=== PATIENT | female | born 1945 | race Caucasian/White ===

== ENCOUNTER → 2019-04-18 | Outpatient (CLI) | payer MEDICARE ==
--- NOTE | 2019-04-18 18:02 | MR ---
EXAMINATION TYPE: MR lumbar spine wo con DATE OF EXAM: 04/18/2019 COMPARISON: None HISTORY: 73-year-old female with low back pain TECHNIQUE: Multiplanar, multisequence images of the lumbar spine were acquired. FINDINGS: Vertebral body heights are preserved. Mild multilevel degenerative disc disease with variable disc de siccation and diffuse bulging disc. Moderate degenerative disc disease at L5-S1 with some associated Modic type II fatty endplate change, disc height loss, and vacuum phenomenon. Hypertrophic facet arthropathy is present throughout with areas of ligamentum flavum thickening. Conus medullaris is normal. Overall alignment is maintained. No suspicious bone marrow replacement. No prevertebral or paravertebral soft tissue abnormality. At T12-L1, minimal diffuse bulging disc without canal or foraminal stenosis. At L1-L2, mild diffuse disc bulge with facet arthropathy and prominent dorsal epidural fat. There is mild overall attenuation of the thecal sac without neural foraminal stenosis. At L2-L3, there is diffuse disc bulge with ligamentum flavum thickening and hypertrophic facet arthro jessica. Changes result in severe spinal canal stenosis and minimal bilateral inferior neural foraminal narrowing. At L3-L4, there is diffuse disc bulge with ligamentum flavum thickening and hypertrophic facet arthro jessica resulting in severe spinal canal stenosis and mild bilateral neuroforaminal stenosis. At L4-L5, diffuse disc bulge with ligamentum flavum thickening and hypertrophic facet arthropathy con tributing to severe spinal canal stenosis and moderate right with mild left neuroforaminal stenosis. At L5-S1, diffuse disc bulge mildly attenuates the thecal sac. There is facet arthropathy with modera te right neuroforaminal stenosis. Disc material also may impinge the bilateral traversing S1 nerve ro ots. IMPRESSION: 1. Mild to moderate multilevel degenerative disc disease, greatest at L5-S1 but with prominent multil evel bulging disks. 2. Additional ligamentum flavum thickening and hypertrophic facet arthropathy. 3. Changes result in focal severe spinal canal stenoses at L2-L3, L3-L4, and L4-L5. 4. Mild overall thecal sac attenuation at L1-L2. Disc material at L5-S1 may impinge the bilateral tra versing S1 nerve roots. 5. Moderate right neuroforaminal stenosis at L4-L5.
== END ==
LOC: RADMRIMAIN 13:28
PROVIDERS: ATTEND Psychiatry & Neurology Neurology
DX: M48.061 Spinal stenosis, lumbar region without neurogenic claudication (principal); M51.37 Other intervertebral disc degeneration, lumbosacral region; M51.27 Other intervertebral disc displacement, lumbosacral region; M46.97 Unspecified inflammatory spondylopathy, lumbosacral region
CPT/HCPCS: 72148

== ENCOUNTER 2019-05-14 08:57 | Inpatient (IN) | payer MEDICARE ==
[2019-05-14] MEDS ORDERED: methylPREDNISolone SOD SUCCI 125 MG/2 ML VIAL IV STA (09:22)
[2019-05-14] MEDS ORDERED: IPRATROPIUM-ALBUTEROL 3 ML NEB INHALATION STA (09:22)
[2019-05-14 09:55] LABS: Basophils % (A) 1 %; Eosinophils # (A) 0.3 k/uL (0-0.7); Eosinophils % (A) 6 %; HCT 35.3 % (34.0-46.0); HGB 11.4 gm/dL (11.4-16.0); Lymphocytes # (A) 1.4 k/uL (1.0-4.8); Lymphocytes % (A) 29 %; MCHC 32.3 g/dL (31.0-37.0); MCV 86.7 fL (80.0-100.0); Mean Platelet Volume 9.4; Monocytes # (A) 0.3 k/uL (0-1.0); Monocytes % (A) 7 %; Neutrophils # (A) 2.8 k/uL (1.3-7.7); Neutrophils % (A) 56 %; Platelet Count 185 k/uL (150-450); RBC 4.07 m/uL (3.80-5.40); RDW 13.9 % (11.5-15.5); WBC 4.9 k/uL (3.8-10.6)
--- NOTE | 2019-05-14 10:02 | ED ---
SOB HPI - General Chief Complaint: Shortness of Breath Stated Complaint: TRES Time Seen by Provider: 05/14/19 09:14 Source: patient, RN notes reviewed Mode of arrival: ambulatory Limitations: no limitations - History of Present Illness Initial Comments: 73-year-old female presents emergency Department with chief complaint of shortness of breath. Patient states it started 2 days ago with a runny nose and congestion. Patient states has slightly worsened. She did give herself her breathing treatments morning which helped. She has a history of asthma. Denies chest pain she states she does have some tightness with shortness of breath. No fevers no chills. Denies any nausea vomiting diarrhea constipation. Patient states that she just feels that she has a cold. Patient has no complaints of dizziness no diaphoretic episodes - Related Data Home Medications Medication Instructions Recorded Confirmed Cholecalciferol [Vitamin D3 (25 1,000 unit PO DAILY 05/14/19 05/14/19 Mcg = 1000 Iu)] Clopidogrel [Plavix] 75 mg PO DAILY 05/14/19 05/14/19 Ezetimibe [Zetia] 10 mg PO HS 05/14/19 05/14/19 Gabapentin [Neurontin] 300 mg PO TID@0700,1500,2300 05/14/19 05/14/19 Lisinopril 40 mg PO DAILY 05/14/19 05/14/19 Magnesium Oxide [Magox 400] 400 mg PO DAILY 05/14/19 05/14/19 Metoprolol Succinate (ER) [Toprol 25 mg PO DAILY 05/14/19 05/14/19 Xl] Ubidecarenone [Co Q-10] 100 mg PO MOWEFR 05/14/19 05/14/19 glipiZIDE [Glucotrol] 5 mg PO AC-BRKFST 05/14/19 05/14/19 metFORMIN HCL 500 mg PO DAILY 05/14/19 05/14/19 Allergies Allergy/AdvReac Type Severity Reaction Status Date / Time atorvastatin [From Lipitor] AdvReac CRAMPS Verified 05/14/19 09:32 Review of Systems ROS Statement: Those systems with pertinent positive or pertinent negative responses have been documented in the HPI. ROS Other: All systems not noted in ROS Statement are negative. Past Medical History Past Medical History: Asthma, CVA/TIA, Diabetes Mellitus, Hyperlipidemia, Hypertension Additional Past Medical History / Comment(s): rheumatoid arthritis History of Any Multi-Drug Resistant Organisms: None Reported Past Surgical History: Appendectomy, Tubal Ligation Past Psychological History: No Psychological Hx Reported Smoking Status: Never smoker Past Alcohol Use History: None Reported Past Drug Use History: None Reported General Exam Limitations: no limitations General appearance: alert, in no apparent distress Head exam: Present: atraumatic, normocephalic, normal inspection Eye exam: Present: normal appearance, PERRL, EOMI. Absent: scleral icterus, conjunctival injection, periorbital swelling ENT exam: Present: normal exam, mucous membranes moist Neck exam: Present: normal inspection. Absent: tenderness, meningismus, lymp hadenopathy Respiratory exam: Present: wheezes. Absent: normal lung sounds bilaterally, respiratory distress, rales, rhonchi, stridor Cardiovascular Exam: Present: regular rate, normal rhythm, normal heart sounds. Absent: systolic murmur, diastolic murmur, rubs, gallop, clicks GI/Abdominal exam: Present: soft, normal bowel sounds. Absent: distended, tenderness, guarding, rebound, rigid Skin exam: Present: warm, dry, intact, normal color. Absent: rash Course Vital Signs 05/14/19 05/14/19 05/14/19 09:05 09:28 09:42 Temperature 98.8 F Pulse Rate 79 78 76 Respiratory 26 H Rate Blood Pressure 124/89 O2 Sat by Pulse 96 Oximetry Medical Decision Making - Medical Decision Making 33-year-old female presents emergency from for shortness of breath. Patient lab work, EKG, chest x-ray. Chest x-ray shows possibility of bibasilar atelectasis versus infiltrate and possible interstitial pneumonitis. Patient did have some improvement after DuoNeb treatment though she still has some residual wheezing and shortness of breath. Patient did not for comfortable being discharged at this time will be admitted for pneumonia, asthma - Lab Data Result diagrams: 05/14/19 09:40 05/14/19 09:40 Lab Results 05/14/19 05/14/19 05/14/19 Range/Units 09:40 09:40 09:40 WBC 4.9 (3.8-10.6) k/uL RBC 4.07 (3.80-5.40) m/uL Hgb 11.4 (11.4-16.0) gm/dL Hct 35.3 (34.0-46.0) % MCV 86.7 (80.0-100.0) fL MCH 28.0 (25.0-35.0) pg MCHC 32.3 (31.0-37.0) g/dL RDW 13.9 (11.5-15.5) % Plt Count 185 (150-450) k/uL Neutrophils % 56 % Lymphocytes % 29 % Monocytes % 7 % Eosinophils % 6 % Basophils % 1 % Neutrophils # 2.8 (1.3-7.7) k/uL Lymphocytes # 1.4 (1.0-4.8) k/uL Monocytes # 0.3 (0-1.0) k/uL Eosinophils # 0.3 (0-0.7) k/uL Basophils # 0.0 (0-0.2) k/uL PT (9.0-12.0) sec INR (<1.2) APTT (22.0-30.0) sec Sodium 140 (137-145) mmol/L Potassium 3.4 L (3.5-5.1) mmol/L Chloride 101 (98-107) mmol/L Carbon Dioxide 31 H (22-30) mmol/L Anion Gap 8 mmol/L BUN 14 (7-17) mg/dL Creatinine 0.70 (0.52-1.04) mg/dL Est GFR (CKD-EPI)AfAm >90 (>60 ml/min/1.73 sqM) Est GFR (CKD-EPI)NonAf 85 (>60 ml/min/1.73 sqM) Glucose 192 H (74-99) mg/dL Calcium 8.6 (8.4-10.2) mg/dL Magnesium 1.3 L (1.6-2.3) mg/dL Total Bilirubin 0.7 (0.2-1.3) mg/dL AST 21 (14-36) U/L ALT 21 (9-52) U/L Alkaline Phosphatase 84 (38-126) U/L Troponin I (0.000-0.034) ng/mL NT-Pro-B Natriuret Pep 492 pg/mL Total Protein 7.0 (6.3-8.2) g/dL Albumin 3.6 (3.5-5.0) g/dL 05/14/19 05/14/19 Range/Units 09:40 09:40 WBC (3.8-10.6) k/uL RBC (3.80-5.40) m/uL Hgb (11.4-16.0) gm/dL Hct (34.0-46.0) % MCV (80.0-100.0) fL MCH (25.0-35.0) pg MCHC (31.0-37.0) g/dL RDW (11.5-15.5) % Plt Count (150-450) k/uL Neutrophils % % Lymphocytes % % Monocytes % % Eosinophils % % Basophils % % Neutrophils # (1.3-7.7) k/uL Lymphocytes # (1.0-4.8) k/uL Monocytes # (0-1.0) k/uL Eosinophils # (0-0.7) k/uL Basophils # (0-0.2) k/uL PT 9.8 (9.0-12.0) sec INR 0.9 (<1.2) APTT 21.7 L (22.0-30.0) sec Sodium (137-145) mmol/L Potassium (3.5-5.1) mmol/L Chloride (98-107) mmol/L Carbon Dioxide (22-30) mmol/L Anion Gap mmol/L BUN (7-17) mg/dL Creatinine (0.52-1.04) mg/dL Est GFR (CKD-EPI)AfAm (>60 ml/min/1.73 sqM) Est GFR (CKD-EPI)NonAf (>60 ml/min/1.73 sqM) Glucose (74-99) mg/dL Calcium (8.4-10.2) mg/dL Magnesium (1.6-2.3) mg/dL Total Bilirubin (0.2-1.3) mg/dL AST (14-36) U/L ALT (9-52) U/L Alkaline Phosphatase (38-126) U/L Troponin I <0.012 (0.000-0.034) ng/mL NT-Pro-B Natriuret Pep pg/mL Total Protein (6.3-8.2) g/dL Albumin (3.5-5.0) g/dL Disposition Clinical Impression: Pneumonia, Asthma Disposition: ADMITTED IP TO THIS HOSP Condition: Fair Referrals: Nenita Shelby MD [Primary Care Provider] - 1-2 days
[2019-05-14 10:07] LABS: ALT 21 U/L (9-52); AST 21 U/L (14-36); African American GFR (CKD) >90 (>60 ml/min/1.73 sqM); Albumin 3.6 g/dL (3.5-5.0); Alkaline Phosphatase 84 U/L (38-126); Anion Gap 8 mmol/L; Blood Urea Nitrogen 14 mg/dL (7-17); Calcium 8.6 mg/dL (8.4-10.2); Carbon Dioxide 31 mmol/L (22-30); Chloride 101 mmol/L (98-107); Glucose 192 mg/dL (74-99); Magnesium 1.3 mg/dL (1.6-2.3); Potassium 3.4 mmol/L (3.5-5.1); Sodium 140 mmol/L (137-145); Total Bilirubin 0.7 mg/dL (0.2-1.3)
--- NOTE | 2019-05-14 10:09 | XR ---
EXAMINATION TYPE: XR chest 2V DATE OF EXAM: 05/14/2019 COMPARISON: NONE TECHNIQUE: PA and lateral views submitted. HISTORY: Shortness of breath FINDINGS: There are small bilateral effusions and patchy perihilar interstitial changes. No pneumothorax. Ather osclerotic change aorta. Heart size normal. IMPRESSION: Basilar atelectasis or infiltrate with tiny effusions. Patchy perihilar changes can be se en with interstitial pneumonitis or venous congestion correlate clinically.
[2019-05-14 10:16] LABS: INR 0.9 (<1.2); Prothrombin Time 9.8 sec (9.0-12.0)
[2019-05-14 10:26] LABS: Partial Thromboplastin Time 21.7 sec (22.0-30.0)
[2019-05-14] MEDS ORDERED: AZITHROMYCIN 500 MG in SODIUM CHLORIDE 0.9% 250 ML IVPB STA (10:35)
[2019-05-14] MEDS ORDERED: ALBUTEROL NEBULIZED 2.5 MG/3 ML INHALATION PRN (10:35)
[2019-05-14] MEDS ORDERED: PNEUMONIA PROTOCOL UTILIZED 1 EACH MISC PO PRN (10:35)
[2019-05-14] MEDS ORDERED: IPRATROPIUM-ALBUTEROL 3 ML NEB INHALATION SCH (12:00)
[2019-05-14 12:40] LABS: Glucose,Whole Blood 197 mg/dL (75-99)
[2019-05-14] MEDS: IPRATROPIUM-ALBUTEROL 3 ML NEB INHALATION SCH ×2 (15:26→19:52)
[2019-05-14] MEDS ORDERED: Potassium Replacement Protocol 1 EACH MISC MISCELLANE PRN (15:39)
[2019-05-14] MEDS ORDERED: Magnesium Replacement Protocol 1 EACH MISC MISCELLANE PRN (15:40)
[2019-05-14] MEDS: LISINOPRIL 20 MG TAB PO SCH (16:47)
[2019-05-14] MEDS: CLOPIDOGREL 75 MG TAB PO SCH (16:47)
[2019-05-14] MEDS: POTASSIUM CHLORIDE ER 20 MEQ TAB.ER PO SCH ×2 (16:47→16:48)
[2019-05-14] MEDS: MAGNESIUM OXIDE 400 MG TAB PO SCH (16:48)
[2019-05-14] MEDS: metFORMIN 500 MG TAB PO SCH (16:48)
[2019-05-14] MEDS: METOPROLOL SUCCINATE (ER) 25 MG TAB.ER.24H PO SCH (16:53)
--- NOTE | 2019-05-14 16:54 | P.HPIM ---
History of Present Illness H&P Date: 05/14/19 Nancy Celestin is a 73-year-old female who presented to [facility] emergency Department with chief complaint of shortness of breath. Patient states it started 2 days ago with a runny nose and congestion. Patient started having shortness of breath which worsened over the last 2 days she had occasional cough patient has a known history of asthma, she tried to take nebulizer treatment at home with minimal improvement she decided to come to emergency room, she was evaluated in emergency room that and had evidence of pneumonia she was started on IV antibiotic and was admitted to medical floor pulmonary consultation was requested. Past Medical History Past Medical History: Asthma, CVA/TIA, Diabetes Mellitus, Hyperlipidemia, Hypertension Additional Past Medical History / Comment(s): rheumatoid arthritis History of Any Multi-Drug Resistant Organisms: None Reported Past Surgical History: Appendectomy, Tubal Ligation Past Anesthesia/Blood Transfusion Reactions: No Reported Reaction Past Psychological History: No Psychological Hx Reported Smoking Status: Never smoker Past Alcohol Use History: None Reported Past Drug Use History: None Reported - Past Family History Father Family Medical History: Cancer, Congestive Heart Failure (CHF) Additional Family Medical History / Comment(s): colon cancer Mother Family Medical History: Rheumatoid Arthritis (RA) Medications and Allergies Home Medications Medication Instructions Recorded Confirmed Type Cholecalciferol [Vitamin D3 (25 1,000 unit PO DAILY 05/14/19 05/14/19 History Mcg = 1000 Iu)] Clopidogrel [Plavix] 75 mg PO DAILY 05/14/19 05/14/19 History Ezetimibe [Zetia] 10 mg PO HS 05/14/19 05/14/19 History Gabapentin [Neurontin] 300 mg PO TID@0700,1500,2300 05/14/19 05/14/19 History Lisinopril 40 mg PO DAILY 05/14/19 05/14/19 History Magnesium Oxide [Magox 400] 400 mg PO DAILY 05/14/19 05/14/19 History Metoprolol Succinate (ER) [Toprol 25 mg PO DAILY 05/14/19 05/14/19 History Xl] Ubidecarenone [Co Q-10] 100 mg PO MOWEFR 05/14/19 05/14/19 History glipiZIDE [Glucotrol] 5 mg PO AC-BRKFST 05/14/19 05/14/19 History metFORMIN HCL 500 mg PO DAILY 05/14/19 05/14/19 History Allergies Allergy/AdvReac Type Severity Reaction Status Date / Time atorvastatin [From Lipitor] AdvReac CRAMPS Verified 05/14/19 09:32 Physical Exam Vitals: Vital Signs Temp Pulse Pulse Resp BP BP Pulse Ox 05/14/19 15:37 82 16 05/14/19 15:26 80 16 99 05/14/19 12:48 75 16 05/14/19 12:41 98.0 F 75 16 161/78 99 05/14/19 11:32 98.7 F 75 16 179/72 98 05/14/19 10:35 99 05/14/19 09:42 76 05/14/19 09:28 78 05/14/19 09:05 98.8 F 79 26 H 124/89 96 Intake and Output 05/14/19 05/14/19 05/14/19 06:59 14:59 22:59 Intake Total 590 Balance 590 Intake: Intake, IV Titration 350 Amount Azithromycin 500 mg In 250 Sodium Chloride 0.9% 250 ml @ 250 mls/hr IVPB ONCE STA Rx#:[id number] cefTRIAXone 1 gm In 100 Sodium Chloride 0.9% 50 ml @ 100 mls/hr IVPB Q24HR JACINTO Rx#:[id number] Oral 240 Other: # Voids 1 Weight 129.727 kg In general patient is alert and oriented 3 in no apparent distress HEENT head normocephalic and atraumatic Neck is supple no JVD no goiter no lymphadenopathy Chest exam reveals a few scattered crackles no wheezing Cardiac exam reveals regular heart sounds no gallops no murmurs Abdomen is soft nontender no organomegaly was normal bowel sounds Extremity exam reveals 1+ edema with some puffiness in the feet no cyanosis or clubbing Results CBC & Chem 7: 05/14/19 09:40 05/14/19 09:40 Labs: Abnormal Lab Results - Last 24 Hours (Table) 05/14/19 05/14/19 05/14/19 Range/Units 09:40 09:40 12:38 APTT 21.7 L (22.0-30.0) sec Potassium 3.4 L (3.5-5.1) mmol/L Carbon Dioxide 31 H (22-30) mmol/L Glucose 192 H (74-99) mg/dL POC Glucose (mg/dL) 197 H (75-99) mg/dL Magnesium 1.3 L (1.6-2.3) mg/dL Thrombosis Risk Factor Assmnt - Choose All That Apply Each Factor Represents 1 point: Swollen legs (current) Each Risk Factor Represents 3 Points: Age 75 years or older Thrombosis Risk Factor Assessment Total Risk Factor Score: 4 Thrombosis Risk Factor Assessment Level: Moderate Risk Assessment and Plan Plan: #1 pneumonia chest x-rays showing perihilar infiltrate and bilateral basilar in filtrate she was started on IV Rocephin and IV Zithromax in the emergency room will continue Will obtain sputum culture Will consult pulmonary #2 asthma exacerbation patient was started on DuoNeb updraft treatment will monitor closely #3 underlying history of hypertension #4 underlying history of diabetes mellitus #5 underlying history of hyperlipidemia At this time will continue with current management with IV antibiotic and inhaled bronchodilators Pulmonary consultation requested will follow course closely
[2019-05-14 17:12] LABS: Glucose,Whole Blood 353 mg/dL (75-99)
[2019-05-14] MEDS: MAGNESIUM SULFATE-D5W PMX 1 GM in DEXTROSE/WATER 1 100ML.BAG IVPB SCH ×3 (17:45→21:58)
[2019-05-14] MEDS: INSULIN ASPART (NovoLOG) 100 UNIT/ML VIAL SQ SCH ×2 (17:46→21:49)
[2019-05-14 20:07] LABS: Glucose,Whole Blood 374 mg/dL (75-99)
[2019-05-14] MEDS: EZETIMIBE 10 MG TAB PO SCH (21:50)
[2019-05-14] MEDS: GABAPENTIN 300 MG CAP PO SCH (21:52)
[2019-05-15] MEDS: IPRATROPIUM-ALBUTEROL 3 ML NEB INHALATION SCH ×4 (07:01→18:39)
[2019-05-15 07:32] LABS: Glucose,Whole Blood 299 mg/dL (75-99)
--- NOTE | 2019-05-15 07:35 | XR ---
EXAMINATION TYPE: XR chest 2V DATE OF EXAM: 05/15/2019 COMPARISON: 05/14/2019 TECHNIQUE: PA and lateral views submitted. HISTORY: Shortness of breath FINDINGS: There are small bilateral effusions and patchy perihilar interstitial changes. No pneumothorax. Ather osclerotic change aorta. Heart size normal. Pulmonary arteries appear prominent correlate for pulmona ry arterial hypertension. IMPRESSION: 1. Stable Basilar atelectasis or infiltrate with tiny effusions. Patchy perihilar changes can be seen with interstitial pneumonitis or venous congestion correlate clinically. 2. Prominent pulmonary arteries correlate for pulmonary arterial hypertension.
[2019-05-15 08:33] LABS: ALT 8 U/L (9-52); AST 42 U/L (14-36); African American GFR (CKD) >90 (>60 ml/min/1.73 sqM); Albumin 3.8 g/dL (3.5-5.0); Alkaline Phosphatase 91 U/L (38-126); Anion Gap 10 mmol/L; Blood Urea Nitrogen 15 mg/dL (7-17); Calcium 8.9 mg/dL (8.4-10.2); Carbon Dioxide 28 mmol/L (22-30); Chloride 102 mmol/L (98-107); Glucose 282 mg/dL (74-99); Potassium 4.1 mmol/L (3.5-5.1); Sodium 140 mmol/L (137-145); Total Bilirubin 0.7 mg/dL (0.2-1.3); Total Protein 7.4 g/dL (6.3-8.2)
[2019-05-15 08:45] LABS: Basophils % (A) 0 %; Eosinophils % (A) 1 %; HCT 36.4 % (34.0-46.0); HGB 11.9 gm/dL (11.4-16.0); Lymphocytes # (A) 1.1 k/uL (1.0-4.8); Lymphocytes % (A) 22 %; MCH 28.7 pg (25.0-35.0); MCHC 32.9 g/dL (31.0-37.0); MCV 87.3 fL (80.0-100.0); Mean Platelet Volume 9.2; Monocytes # (A) 0.4 k/uL (0-1.0); Monocytes % (A) 8 %; Neutrophils # (A) 3.4 k/uL (1.3-7.7); Neutrophils % (A) 68 %; Platelet Count 192 k/uL (150-450); RBC 4.16 m/uL (3.80-5.40); RDW 13.4 % (11.5-15.5); WBC 5.1 k/uL (3.8-10.6)
[2019-05-15] MEDS ORDERED: methylPREDNISolone SOD SUCCI 40 MG/ML 1 ML VIAL IV SCH (09:30)
[2019-05-15] MEDS: CLOPIDOGREL 75 MG TAB PO SCH (09:38)
[2019-05-15] MEDS: LISINOPRIL 20 MG TAB PO SCH ×2 (09:38→09:39)
[2019-05-15] MEDS: GABAPENTIN 300 MG CAP PO SCH ×2 (09:38→18:07)
[2019-05-15] MEDS: MAGNESIUM OXIDE 400 MG TAB PO SCH (09:38)
[2019-05-15] MEDS: CHOLECALCIFEROL 1,000 UNIT TAB PO SCH (09:38)
[2019-05-15] MEDS: metFORMIN 500 MG TAB PO SCH (09:39)
[2019-05-15] MEDS: glipiZIDE 5 MG TAB PO SCH (09:39)
[2019-05-15] MEDS: METOPROLOL SUCCINATE (ER) 25 MG TAB.ER.24H PO SCH (09:40)
[2019-05-15] MEDS: INSULIN ASPART (NovoLOG) 100 UNIT/ML VIAL SQ SCH ×4 (09:40→20:25)
[2019-05-15] MEDS: AZITHROMYCIN 500 MG in SODIUM CHLORIDE 0.9% 250 ML IVPB SCH (12:23)
[2019-05-15 12:33] LABS: Glucose,Whole Blood 244 mg/dL (75-99)
--- NOTE | 2019-05-15 12:35 | P.CNPUL ---
History of Present Illness Consult date: 05/15/19 Requesting physician: Nenita Shelby Reason for consult: dyspnea Chief complaint: Dyspnea, chest tightness, acute asthma attack History of present illness: This is 73-year-old white female patient of Dr. Shelby, with past medical history of moderately persistent bronchial asthma, who was recently treated for a sinus infection with a course of antibiotics, and patient finished it on May 05. She stated her symptoms did improve after that, however on she was out with her friend, and she started getting watery eyes, increased nasal drainage which was clear, increased sinus congestion. She returned home her chest was feeling tight, she was having difficulty breathing. She took her nebulized bronchodilator, and her symptoms became worse, and she came into the hospital on 05/14/2019 to the emergency department. Patient states her symptoms usually are well-controlled other than during the weather change, with high humidity and hot weather. Patient also has ALLERGIES to pollen, dust and ragweed. Chest x-ray was obtained showing basilar atelectasis or infiltrates with tiny effusions, patchy perihilar changes with interstitial pneumonitis or venous congestion. She denied fever or chills, no nausea vomiting or diarrhea. Labs did not show any leukocytosis, white blood cell count is 4.9, hemoglobin is 11.4, INR 0.9, serum sodium is 140, potassium is 3.4, chloride was 101, CO2 is 31, BUN is 14, creatinine 0.70, troponin was negative 1, proBNP was 492, influenza screen was negative. Patient was started on nebulized bronchodilators, she was given a dose of IV Solu-Medrol 125 mg in the emergency department, empiric antibiotics in the form of Zithromax and Rocephin, and was admitted for further management. Other medical history includes diabetes mellitus, hypertension, hyperlipidemia, CVA/TIA, rheumatoid arthritis, and patient is under the care of Dr. Potter, on [facility] for maintenance. Review of Systems All systems: negative Constitutional: Denies chills, Denies fever Eyes: denies blurred vision, denies pain Ears, nose, mouth and throat: Reports nasal congestion, Reports post-nasal drip, Reports sinus pain, Reports sinus pressure, Reports sore throat, Denies headache Cardiovascular: Denies chest pain, Denies shortness of breath Respiratory: Reports cough with sputum, Reports dyspnea, Reports respiratory infections, Reports wheezing, Denies cough Gastrointestinal: Denies abdominal pain, Denies diarrhea, Denies nausea, Denies vomiting Genitourinary: Denies dysuria, Denies hematuria Musculoskeletal: Denies myalgias Integumentary: Denies pruritus, Denies rash Neurological: Denies numbness, Denies weakness Psychiatric: Denies anxiety, Denies depression Endocrine: Denies fatigue, Denies weight change Past Medical History Past Medical History: Asthma, CVA/TIA, Diabetes Mellitus, Hyperlipidemia, Hypertension Additional Past Medical History / Comment(s): rheumatoid arthritis History of Any Multi-Drug Resistant Organisms: None Reported Past Surgical History: Appendectomy, Tubal Ligation Past Anesthesia/Blood Transfusion Reactions: No Reported Reaction Past Psychological History: No Psychological Hx Reported Smoking Status: Never smoker Past Alcohol Use History: None Reported Past Drug Use History: None Reported - Past Family History Father Family Medical History: Cancer, Congestive Heart Failure (CHF) Additional Family Medical History / Comment(s): colon cancer Mother Family Medical History: Rheumatoid Arthritis (RA) Medications and Allergies Home Medications Medication Instructions Recorded Confirmed Type Cholecalciferol [Vitamin D3 (25 1,000 unit PO DAILY 05/14/19 05/14/19 History Mcg = 1000 Iu)] Clopidogrel [Plavix] 75 mg PO DAILY 05/14/19 05/14/19 History Ezetimibe [Zetia] 10 mg PO HS 05/14/19 05/14/19 History Gabapentin [Neurontin] 300 mg PO TID@0700,1500,2300 05/14/19 05/14/19 History Lisinopril 40 mg PO DAILY 05/14/19 05/14/19 History Magnesium Oxide [Magox 400] 400 mg PO DAILY 05/14/19 05/14/19 History Metoprolol Succinate (ER) [Toprol 25 mg PO DAILY 05/14/19 05/14/19 History Xl] Ubidecarenone [Co Q-10] 100 mg PO MOWEFR 05/14/19 05/14/19 History glipiZIDE [Glucotrol] 5 mg PO AC-BRKFST 05/14/19 05/14/19 History metFORMIN HCL 500 mg PO DAILY 05/14/19 05/14/19 History Allergies Allergy/AdvReac Type Severity Reaction Status Date / Time atorvastatin [From Lipitor] AdvReac CRAMPS Verified 05/14/19 09:32 Physical Exam Vitals: Vital Signs Temp Pulse Pulse Resp BP Pulse Ox 05/15/19 11:15 80 05/15/19 11:04 82 05/15/19 08:25 88 20 05/15/19 07:13 88 05/15/19 07:01 84 05/15/19 05:38 97.5 F L 88 20 142/72 99 05/15/19 04:44 80 05/15/19 04:14 88 05/14/19 20:05 97.7 F 102 H 22 174/77 96 05/14/19 20:04 78 16 05/14/19 19:54 77 16 05/14/19 16:25 75 16 05/14/19 15:37 82 16 05/14/19 15:26 80 16 99 05/14/19 15:00 98.3 F 152/78 05/14/19 12:48 75 16 05/14/19 12:41 98.0 F 75 16 161/78 99 Intake and Output 05/14/19 05/15/19 05/15/19 22:59 06:59 14:59 Other: Voiding Method Toilet Toilet # Voids 1 3 GENERAL EXAM: Alert, pleasant 73-year-old obese -[place] female, comfortable in no apparent distress. HEAD: Normocephalic/atraumatic. EYES: Normal reaction of pupils, equal size. Conjunctiva pink, sclera white. NOSE: Clear with pink turbinates. THROAT: No erythema or exudates. NECK: No masses, no JVD, no thyroid enlargement, no adenopathy. CHEST: No chest wall deformity. Symmetrical expansion. LUNGS: Equal air entry with diminished breath sounds, with end expiratory wheezes CVS: Regular rate and rhythm, normal S1 and S2, no gallops, no murmurs, no rubs ABDOMEN: Soft, nontender. No hepatosplenomegaly, normal bowel sounds, no guarding or rigidity. EXTREMITIES: No clubbing, no edema, no cyanosis, 2+ pulses and upper and lower extremities. MUSCULOSKELETAL: Muscle strength and tone normal. SPINE: No scoliosis or deformity SKIN: No rashes CENTRAL NERVOUS SYSTEM: Alert and oriented -3. No focal deficits, tone is normal in all 4 extremities. PSYCHIATRIC: Alert and oriented -3. Appropriate affect. Intact judgment and insight. Results - Laboratory Findings CBC and BMP: 05/15/19 07:34 05/15/19 07:34 PT/INR, D-dimer PT 9.8 sec (9.0-12.0) 05/14/19 09:40 INR 0.9 (<1.2) 05/14/19 09:40 Abnormal lab findings: Abnormal Labs 05/14/19 05/14/19 05/14/19 09:40 09:40 12:38 APTT 21.7 L Potassium 3.4 L Carbon Dioxide 31 H Glucose 192 H POC Glucose (mg/dL) 197 H Magnesium 1.3 L AST ALT 05/14/19 05/14/19 05/15/19 17:11 20:06 07:31 APTT Potassium Carbon Dioxide Glucose POC Glucose (mg/dL) 353 H 374 H 299 H Magnesium AST ALT 05/15/19 07:34 APTT Potassium Carbon Dioxide Glucose 282 H POC Glucose (mg/dL) Magnesium AST 42 H ALT 8 L - Diagnostic Findings Chest x-ray: report reviewed, image reviewed Assessment and Plan Plan: Assessment: #1. Acute exacerbation of moderate persistent chronic bronchial asthma, chest x-ray showed basilar atelectasis, with tiny pleural effusions, and pulmonary arterial hypertension. Triggers include change in weather, pollen, dust and ragweed #2. Recent sinus infection, and patient was treated with outpatient course of oral antibiotics completed on May 05 #3. Steroid-induced hyperglycemia #4. Diabetes mellitus type 2 #5. Hypertension #6. Hyperlipidemia #7. Morbid obesity Plan: We will restart IV Solu-Medrol at 40 mg every 12 hours, patient has developed steroid-induced hyperglycemia, we will add Pulmicort and Perforomist, continue DuoNeb, continue with Zithromax and Rocephin. Chest x-rays have been reviewed, clear evidence of pulmonary infiltrates, bibasilar atelectasis, and pulmonary hypertension will continue to follow I performed a history & physical examination of the patient and discussed their management with my nurse practitioner, Tisha Barnes. I reviewed the nurse practitioner's note and agree with the documented findings and plan of care. Lung sounds are positive for diffuse wheezes throughout the lung ennis. The findings and the impression was discussed with the patient. I attest to the documentation by the nurse practitioner. Time with Patient: Greater than 30
--- NOTE | 2019-05-15 14:37 | P.PN ---
Subjective Progress Note Date: 05/15/19 Nancy Celestin is a 73-year-old female who presented to [facility] emergency Department with chief complaint of shortness of breath. Patient states it started 2 days ago with a runny nose and congestion. Patient started having shortness of breath which worsened over the last 2 days she had occasional cough patient has a known history of asthma, she tried to take nebulizer treatment at home with minimal improvement she decided to come to emergency room, she was evaluated in emergency room that and had evidence of pneumonia she was started on IV antibiotic and was admitted to medical floor pulmonary consultation was requested. On 05/15/2019 patient was seen and examined on the medical floor she is alert and oriented 3 in no apparent distress there is no fever or chills no headache or dizziness no chest pain no shortness of breath she is still complaining of nasal congestion and cough with yellow-green sputum production there is no nausea or vomiting no abdominal pain no diarrhea and no urinary symptoms Objective - Vital Signs Vital signs: Vital Signs Temp 97.5 F L 05/15/19 05:38 Pulse 80 05/15/19 11:15 Resp 20 05/15/19 08:25 BP 142/72 05/15/19 05:38 Pulse Ox 99 05/15/19 05:38 Intake & Output 05/14/19 05/15/19 05/15/19 18:59 06:59 18:59 Intake Total 590 Balance 590 Weight 129.727 kg Intake: Intake, IV Titration 350 Amount Azithromycin 500 mg In 250 Sodium Chloride 0.9% 250 ml @ 250 mls/hr IVPB [facility]CE [facility] Rx#:[id number] cefTRIAXone 1 gm In 100 Sodium Chloride 0.9% 50 ml @ 100 mls/hr IVPB Q24HR [facility] Rx#:[id number] Oral 240 Other: Voiding Method Toilet Toilet # Voids 1 3 - Exam In general patient is alert and oriented 3 in no apparent distress HEENT head normocephalic and atraumatic Neck is supple no JVD no goiter no lymphadenopathy Chest exam reveals a few scattered crackles no wheezing Cardiac exam reveals regular heart sounds no gallops no murmurs Abdomen is soft nontender no organomegaly was normal bowel sounds Extremity exam reveals 1+ edema with some puffiness in the feet no cyanosis or clubbing - Labs CBC & Chem 7: 05/15/19 07:34 05/15/19 07:34 Labs: Abnormal Lab Results - Last 24 Hours (Table) 05/14/19 05/14/19 05/15/19 Range/Units 17:11 20:06 07:31 Glucose (74-99) mg/dL POC Glucose (mg/dL) 353 H 374 H 299 H (75-99) mg/dL AST (14-36) U/L ALT (9-52) U/L 05/15/19 05/15/19 Range/Units 07:34 12:32 Glucose 282 H (74-99) mg/dL POC Glucose (mg/dL) 244 H (75-99) mg/dL AST 42 H (14-36) U/L ALT 8 L (9-52) U/L Microbiology - Last 24 Hours (Table) 05/15/19 04:18 Gram Stain - Preliminary Sputum Sputum Culture - Preliminary Assessment and Plan Plan: #1 pneumonia chest x-rays showing perihilar infiltrate and bilateral basilar infiltrate she was started on IV Rocephin and IV Zithromax in the emergency room will continue Will obtain sputum culture Will consult pulmonary #2 asthma exacerbation patient was started on DuoNeb updraft treatment will monitor closely #3 underlying history of hypertension #4 underlying history of diabetes mellitus #5 underlying history of hyperlipidemia At this time will continue with current management with IV antibiotic and inhaled bronchodilators Pulmonary consultation requested will follow course closely
[2019-05-15 16:49] LABS: Glucose,Whole Blood 226 mg/dL (75-99)
[2019-05-15] MEDS: FORMOTEROL FUMARATE 20 MCG/2 ML NEBU INHALATION SCH (18:39)
[2019-05-15] MEDS: BUDESONIDE 1 MG/2 ML NEBU INHALATION SCH (18:39)
[2019-05-15] MEDS: traMADol 50 MG TAB PO PRN (19:57)
[2019-05-15 20:02] LABS: Glucose,Whole Blood 227 mg/dL (75-99)
[2019-05-15] MEDS: EZETIMIBE 10 MG TAB PO SCH (20:24)
[2019-05-15] MEDS: methylPREDNISolone SOD SUCCI 40 MG/ML 1 ML VIAL IV SCH (20:25)
[2019-05-15] MEDS: amLODIPine 5 MG TAB PO SCH (21:34)
[2019-05-15] MEDS: hydrALAZINE HCL 20 MG/ML 1 ML VIAL IVP PRN (23:08)
[2019-05-16] MEDS: GABAPENTIN 300 MG CAP PO SCH ×4 (00:03→22:53)
[2019-05-16] MEDS: IPRATROPIUM-ALBUTEROL 3 ML NEB INHALATION PRN (00:47)
[2019-05-16 07:00] LABS: Glucose,Whole Blood 273 mg/dL (75-99)
[2019-05-16] MEDS: BUDESONIDE 1 MG/2 ML NEBU INHALATION SCH ×2 (07:00→19:52)
[2019-05-16] MEDS: IPRATROPIUM-ALBUTEROL 3 ML NEB INHALATION SCH ×4 (07:00→19:53)
[2019-05-16] MEDS: FORMOTEROL FUMARATE 20 MCG/2 ML NEBU INHALATION SCH ×2 (07:00→19:52)
[2019-05-16] MEDS: METOPROLOL SUCCINATE (ER) 25 MG TAB.ER.24H PO SCH (07:38)
[2019-05-16] MEDS: CLOPIDOGREL 75 MG TAB PO SCH (07:38)
[2019-05-16] MEDS: glipiZIDE 5 MG TAB PO SCH (07:38)
[2019-05-16] MEDS: LISINOPRIL 20 MG TAB PO SCH (07:38)
[2019-05-16] MEDS: CHOLECALCIFEROL 1,000 UNIT TAB PO SCH (07:39)
[2019-05-16] MEDS: MAGNESIUM OXIDE 400 MG TAB PO SCH (07:39)
[2019-05-16] MEDS: methylPREDNISolone SOD SUCCI 40 MG/ML 1 ML VIAL IV SCH ×2 (07:39→22:01)
[2019-05-16] MEDS: amLODIPine 5 MG TAB PO SCH (07:39)
[2019-05-16] MEDS: metFORMIN 500 MG TAB PO SCH (07:39)
[2019-05-16] MEDS: INSULIN ASPART (NovoLOG) 100 UNIT/ML VIAL SQ SCH ×4 (07:40→22:01)
[2019-05-16] MEDS: AZITHROMYCIN 500 MG in SODIUM CHLORIDE 0.9% 250 ML IVPB SCH (07:49)
[2019-05-16 09:28] LABS: Basophils % (A) 0 %; Eosinophils % (A) 0 %; HCT 36.1 % (34.0-46.0); HGB 11.3 gm/dL (11.4-16.0); Hypochromasia Moderate; Lymphocytes # (A) 1.6 k/uL (1.0-4.8); Lymphocytes % (A) 22 %; MCH 28.2 pg (25.0-35.0); MCHC 31.4 g/dL (31.0-37.0); MCV 89.7 fL (80.0-100.0); Mean Platelet Volume 9.2; Monocytes # (A) 0.3 k/uL (0-1.0); Monocytes % (A) 3 %; Neutrophils # (A) 5.4 k/uL (1.3-7.7); Neutrophils % (A) 73 %; Platelet Count 212 k/uL (150-450); RBC 4.03 m/uL (3.80-5.40); RDW 13.8 % (11.5-15.5); WBC 7.3 k/uL (3.8-10.6)
[2019-05-16 09:35] LABS: African American GFR (CKD) >90 (>60 ml/min/1.73 sqM); Albumin 3.9 g/dL (3.5-5.0); Anion Gap 12 mmol/L; Blood Urea Nitrogen 18 mg/dL (7-17); Carbon Dioxide 25 mmol/L (22-30); Chloride 102 mmol/L (98-107); Glucose 269 mg/dL (74-99); Sodium 139 mmol/L (137-145); Total Bilirubin 0.5 mg/dL (0.2-1.3); Total Protein 7.6 g/dL (6.3-8.2)
[2019-05-16 09:47] LABS: ALT 19 U/L (9-52); AST 32 U/L (14-36); Alkaline Phosphatase 73 U/L (38-126); Potassium 4.9 mmol/L (3.5-5.1)
[2019-05-16 11:36] LABS: Glucose,Whole Blood 253 mg/dL (75-99)
--- NOTE | 2019-05-16 12:21 | P.PN ---
Subjective Progress Note Date: 05/16/19 Principal diagnosis: Exacerbation of moderate persistent chronic bronchial asthma This is 73-year-old white female patient of Dr. Shelby, with past medical history of moderately persistent bronchial asthma, who was recently treated for a sinus infection with a course of antibiotics, and patient finished it on May 05. She stated her symptoms did improve after that, however on she was out with her friend, and she started getting watery eyes, increased nasal drainage which was clear, increased sinus congestion. She returned home her chest was feeling tight, she was having difficulty breathing. She took her nebulized bronchodilator, and her symptoms became worse, and she came into the hospital on 05/14/2019 to the emergency department. Patient states her symptoms usually are well-controlled other than during the weather change, with high humidity and hot weather. Patient also has ALLERGIES to pollen, dust and ragweed. Chest x-ray was obtained showing basilar atelectasis or infiltrates with tiny effusions, patchy perihilar changes with interstitial pneumonitis or venous congestion. She denied fever or chills, no nausea vomiting or diarrhea. Labs did not show any leukocytosis, white blood cell count is 4.9, hemoglobin is 11.4, INR 0.9, serum sodium is 140, potassium is 3.4, chloride was 101, CO2 is 31, BUN is 14, creatinine 0.70, troponin was negative 1, proBNP was 492, influenza screen was negative. Patient was started on nebulized bronc hodilators, she was given a dose of IV Solu-Medrol 125 mg in the emergency department, empiric antibiotics in the form of Zithromax and Rocephin, and was admitted for further management. Other medical history includes diabetes mellitus, hypertension, hyperlipidemia, CVA/TIA, rheumatoid arthritis, and patient is under the care of Dr. Potter, on [facility] for maintenance. On 05/16/2019 patient seen in follow-up on medical surgical floor. She is moving better air today, sounds more wheezing and bronchospastic, with better air entry at lower bases of the lungs. She states she is breathing easier, although not back to normal, room air pulse ox is 97%, she is afebrile, hemodynamically patient is stable, as a positive for diffuse wheezes bilaterally, patient is on IV steroids at 40 mg every 12 hours, she is on Pulmicort and Perforomist, nebulized bronchodilators, Zithromax and Rocephin, urine culture has been sent, preliminary Gram stain showed few gram-positive cocci and peers in chains few gram-negative bacilli, final cultures pending. Objective - Vital Signs Vital signs: Vital Signs Temp 98.1 F 05/16/19 11:57 Pulse 78 05/16/19 11:57 Resp 18 05/16/19 11:57 BP 176/81 05/16/19 11:57 Pulse Ox 97 05/16/19 11:57 Intake & Output 05/15/19 05/16/19 05/16/19 18:59 06:59 18:59 Intake Total 1000 590 Balance 1000 590 Intake: Oral 1000 590 Other: Voiding Method Toilet Toilet # Voids 2 2 - Exam GENERAL EXAM: Alert, pleasant 73-year-old obese -[place] female, comfortable in no apparent distress. HEAD: Normocephalic/atraumatic. EYES: Normal reaction of pupils, equal size. Conjunctiva pink, sclera white. NOSE: Clear with pink turbinates. THROAT: No erythema or exudates. NECK: No masses, no JVD, no thyroid enlargement, no adenopathy. CHEST: No chest wall deformity. Symmetrical expansion. LUNGS: Equal air entry with diminished breath sounds, with end expiratory wheezes CVS: Regular rate and rhythm, normal S1 and S2, no gallops, no murmurs, no rubs ABDOMEN: Soft, nontender. No hepatosplenomegaly, normal bowel sounds, no guarding or rigidity. EXTREMITIES: No clubbing, no edema, no cyanosis, 2+ pulses and upper and lower extremities. MUSCULOSKELETAL: Muscle strength and tone normal. SPINE: No scoliosis or deformity SKIN: No rashes CENTRAL NERVOUS SYSTEM: Alert and oriented -3. No focal deficits, tone is normal in all 4 extremities. PSYCHIATRIC: Alert and oriented -3. Appropriate affect. Intact judgment and insight. - Labs CBC & Chem 7: 05/16/19 08:02 05/16/19 08:02 Labs: Abnormal Lab Results - Last 24 Hours (Table) 05/15/19 05/15/19 05/15/19 Range/Units 12:32 16:48 20:01 Hgb (11.4-16.0) gm/dL BUN (7-17) mg/dL Glucose (74-99) mg/dL POC Glucose (mg/dL) 244 H 226 H 227 H (75-99) mg/dL 05/16/19 05/16/19 05/16/19 Range/Units 06:58 08:02 08:02 Hgb 11.3 L (11.4-16.0) gm/dL BUN 18 H (7-17) mg/dL Glucose 269 H (74-99) mg/dL POC Glucose (mg/dL) 273 H (75-99) mg/dL 05/16/19 Range/Units 11:35 Hgb (11.4-16.0) gm/dL BUN (7-17) mg/dL Glucose (74-99) mg/dL POC Glucose (mg/dL) 253 H (75-99) mg/dL Microbiology - Last 24 Hours (Table) 05/15/19 04:18 Gram Stain - Preliminary Sputum Sputum Culture - Preliminary Assessment and Plan Plan: Assessment: #1. Acute exacerbation of moderate persistent chronic bronchial asthma, chest x-ray showed basilar atelectasis, with tiny pleural effusions, and pulmonary arterial hypertension. Triggers include change in weather, pollen, dust and ragweed #2. Recent sinus infection, and patient was treated with outpatient course of oral antibiotics completed on May 05 #3. Steroid-induced hyperglycemia #4. Diabetes mellitus type 2 #5. Hypertension #6. Hyperlipidemia #7. Morbid obesity Plan: Continue with current antibiotic coverage, will await results of the final sputum culture, continue with IV steroids, Pulmicort and Perforomist, DuoNeb. Better air entry noted on today's exam, patient is breathing easier, although still very bronchospastic. Will send a procalcitonin level. I performed a history & physical examination of the patient and discussed their management with my nurse practitioner, Tisha Barnes. I reviewed the nurse practitioner's note and agree with the documented findings and plan of care. Lung sounds are positive for diffuse wheezes throughout the lung ennis. The findings and the impression was discussed with the patient. I attest to the documentation by the nurse practitioner. Time with Patient: Less than 30
[2019-05-16] MEDS: hydrALAZINE HCL 20 MG/ML 1 ML VIAL IVP PRN (13:34)
--- NOTE | 2019-05-16 14:10 | P.PN ---
Subjective Progress Note Date: 05/16/19 Nancy Celestin is a 73-year-old female who presented to [facility] emergency Department with chief complaint of shortness of breath. Patient states it started 2 days ago with a runny nose and congestion. Patient started having shortness of breath which worsened over the last 2 days she had occasional cough patient has a known history of asthma, she tried to take nebulizer treatment at home with minimal improvement she decided to come to emergency room, she was evaluated in emergency room that and had evidence of pneumonia she was started on IV antibiotic and was admitted to medical floor pulmonary consultation was requested. On 05/15/2019 patient was seen and examined on the medical floor she is alert and oriented 3 in no apparent distress there is no fever or chills no headache or dizziness no chest pain no shortness of breath she is still complaining of nasal congestion and cough with yellow-green sputum production there is no nausea or vomiting no abdominal pain no diarrhea and no urinary symptoms 05/16/2019 patient reports that her breathing is doing better. She still having some wheezing when walking back from the bathroom. Blood pressures elevated at 176/81 she's receiving IV hydralazine. Patient was started on Norvasc during this admission. Also will add hydrochlorothiazide 25 mg daily. Patient denies any chest pain, nausea or vomiting, [place] changes or urinary symptoms. Objective - Vital Signs Vital signs: Vital Signs Temp 98.1 F 05/16/19 11:57 Pulse 78 05/16/19 11:57 Resp 18 05/16/19 11:57 BP 176/81 05/16/19 11:57 Pulse Ox 97 05/16/19 11:57 Intake & Output 05/15/19 05/16/19 05/16/19 18:59 06:59 18:59 Intake Total 1000 590 300 Balance 1000 590 300 Intake: Intake, IV Titration 300 Amount Azithromycin 500 mg In 250 Sodium Chloride 0.9% 250 ml @ 125 mls/hr IVPB DAILY [facility] Rx#:[id number] cefTRIAXone 1 gm In 50 Sodium Chloride 0.9% 50 ml @ 100 mls/hr IVPB Q24HR [facility] Rx#:[id number] Oral 1000 590 Other: Voiding Method Toilet Toilet # Voids 2 2 2 - Exam Head normocephalic Neck supple Lungs expiratory wheezing noted bilaterally Heart regular rate and rhythm S1-S2, no rub or gallop Abdomen is soft nontender nondistended positive bowel sounds no hepatosplenomegaly Extremities mild swelling noted Neuro alert and orientated to 3 - Labs CBC & Chem 7: 05/16/19 08:02 05/16/19 08:02 Labs: Abnormal Lab Results - Last 24 Hours (Table) 05/15/19 05/15/19 05/16/19 Range/Units 16:48 20:01 06:58 Hgb (11.4-16.0) gm/dL BUN (7-17) mg/dL Glucose (74-99) mg/dL POC Glucose (mg/dL) 226 H 227 H 273 H (75-99) mg/dL 05/16/19 05/16/19 05/16/19 Range/Units 08:02 08:02 11:35 Hgb 11.3 L (11.4-16.0) gm/dL BUN 18 H (7-17) mg/dL Glucose 269 H (74-99) mg/dL POC Glucose (mg/dL) 253 H (75-99) mg/dL Microbiology - Last 24 Hours (Table) 05/15/19 04:18 Gram Stain - Preliminary Sputum Sputum Culture - Preliminary Assessment and Plan Assessment: #1 pneumonia chest x-rays showing perihilar infiltrate and bilateral basilar infiltrate she was started on IV Rocephin and IV Zithromax in the emergency room will continue. Sputum culture pending. Pulmonary following #2 acute exacerbation of moderate persistent chronic bronchial asthma continue DuoNeb updrafts, IV steroids Pulmicort and Perforomist. Pulmonary service is following closely. Pro-calcitonin level pending. #3 underlying history of hypertension #4 underlying history of diabetes mellitus type 2. Elevated blood sugars secondary to steroids #5 underlying history of hyperlipidemia #6 essential hypertension: Blood pressures are uncontrolled. We'll add hydrochlorothiazide 25 mg daily. Norvasc 5 mg daily added during this admission. 2 of the hydralazine as needed #7 recent sinus infection and patient still having some sinus congestion will resume her Flonase nasal spray #8 morbid obesity GI prophylaxis Pepcid and DVT prophylaxis Lovenox I performed an examination of the patient and discussed their management with the physician Administration Dean. I have reviewed the Physician Administration Dean's notes and agree with the documented findings and plan of care
[2019-05-16] MEDS: FLUTICASONE 50MCG/SPRAY NASAL 16GM EA NOSTRIL SCH (14:41)
[2019-05-16] MEDS: FAMOTIDINE 20 MG TAB PO SCH (14:41)
[2019-05-16] MEDS: ENOXAPARIN 40 MG/0.4 ML SYRINGE SQ SCH (14:41)
[2019-05-16] MEDS: NON-FORMULARY DRUG (Ubidecarenone [Co Q-10] 100 MG) PO SCH (15:16)
[2019-05-16] MEDS ORDERED: RX INFO: IV CONTRAST WAS GIVEN 1 EACH MISC MISCELLANE PRN (15:31)
[2019-05-16 17:06] LABS: Glucose,Whole Blood 279 mg/dL (75-99)
[2019-05-16 18:19] LABS: Hemoglobin A1C 7.7 % (4.0-6.0)
--- NOTE | 2019-05-16 18:59 | CT ---
EXAMINATION TYPE: CT chest w con DATE OF EXAM: 05/16/2019 COMPARISON: Radiograph 05/15/2019 HISTORY: 73-year-old female Shortness of breath. Hx asthma, pneumonia. TECHNIQUE: Contiguous axial scanning of the chest after the administration of 100 mL of Isovue 300. Coronal/sagittal reconstructions performed. CT DLP: 618.20mGycm. Automatic exposure control utilized for a dose reduction. FINDINGS: Heart upper limits of normal in size without pericardial effusion. Extensive coronary vessel calcific ations are present. Mild atherosclerotic arch calcifications. Aorta normal caliber with bovine configuration to the aorti c arch. Large caliber to the main right and left pulmonary arteries and 3.0 and 2.8 cm, respectively, suggest ing underlying pulmonary arterial hypertension. No thoracic lymphadenopathy by CT size criteria. Evaluation of the lungs show strandy bibasilar areas of probable scarring. Mild diffuse bronchial wal l thickening is demonstrated. 1.1 cm nodular density inferior lingula could represent a nodular area of atelectasis or scarring. No pleural effusion. Visualized upper abdomen shows possible heterogeneously enhancing round 1.7 cm lesion in the central left kidney. 1.9 cm gallstone. Bones: Endplate spondylosis throughout the thoracic spine. Mild/moderate multilevel degenerative disc disease. IMPRESSION: 1. Prominent strandy bibasilar areas of atelectasis or scarring. 2. A 1.1 cm nodular density in the inferior lingula could represent a nodular area of atelectasis/sca r. 3 month follow-up CT recommended to reassess. 3. Pulmonary arterial hypertension and CAD. 4. Artifact within the upper abdomen. Difficult to exclude a 1.7 cm enhancing lesion in the mid left kidney. Consider renal ultrasound as an initial step in further evaluation. If renal ultrasound remai ns equivocal, renal mass protocol CT or MRI may be indicated. 5. Cholelithiasis.
[2019-05-16 19:58] LABS: Glucose,Whole Blood 278 mg/dL (75-99)
[2019-05-16] MEDS: EZETIMIBE 10 MG TAB PO SCH (22:01)
[2019-05-16] MEDS: traMADol 50 MG TAB PO PRN (22:53)
[2019-05-17] MEDS: IPRATROPIUM-ALBUTEROL 3 ML NEB INHALATION PRN ×3 (02:40→22:11)
[2019-05-17] MEDS: hydrALAZINE HCL 20 MG/ML 1 ML VIAL IVP PRN (04:47)
[2019-05-17] MEDS: traMADol 50 MG TAB PO PRN ×2 (04:52→22:05)
[2019-05-17 07:03] LABS: Glucose,Whole Blood 280 mg/dL (75-99)
[2019-05-17] MEDS: INSULIN ASPART (NovoLOG) 100 UNIT/ML VIAL SQ SCH ×4 (07:49→21:56)
[2019-05-17] MEDS: AZITHROMYCIN 500 MG TAB PO SCH (07:49)
[2019-05-17] MEDS: ENOXAPARIN 40 MG/0.4 ML SYRINGE SQ SCH (07:50)
[2019-05-17] MEDS: GABAPENTIN 300 MG CAP PO SCH ×3 (07:50→22:00)
[2019-05-17] MEDS: HYDROCHLOROTHIAZIDE 25 MG TAB PO SCH (07:50)
[2019-05-17] MEDS: CHOLECALCIFEROL 1,000 UNIT TAB PO SCH (07:50)
[2019-05-17] MEDS: MAGNESIUM OXIDE 400 MG TAB PO SCH (07:50)
[2019-05-17] MEDS: amLODIPine 5 MG TAB PO SCH (07:50)
[2019-05-17] MEDS: metFORMIN 500 MG TAB PO SCH (07:50)
[2019-05-17] MEDS: glipiZIDE 5 MG TAB PO SCH (07:50)
[2019-05-17] MEDS: methylPREDNISolone SOD SUCCI 40 MG/ML 1 ML VIAL IV SCH ×2 (07:50→21:56)
[2019-05-17] MEDS: METOPROLOL SUCCINATE (ER) 25 MG TAB.ER.24H PO SCH (07:50)
[2019-05-17] MEDS: FAMOTIDINE 20 MG TAB PO SCH (07:51)
[2019-05-17] MEDS: LISINOPRIL 20 MG TAB PO SCH (07:51)
[2019-05-17] MEDS: FLUTICASONE 50MCG/SPRAY NASAL 16GM EA NOSTRIL SCH (07:51)
[2019-05-17] MEDS: CLOPIDOGREL 75 MG TAB PO SCH (07:51)
[2019-05-17] MEDS: BUDESONIDE 1 MG/2 ML NEBU INHALATION SCH ×2 (08:13→19:18)
[2019-05-17] MEDS: IPRATROPIUM-ALBUTEROL 3 ML NEB INHALATION SCH ×4 (08:13→19:19)
[2019-05-17] MEDS: FORMOTEROL FUMARATE 20 MCG/2 ML NEBU INHALATION SCH ×2 (08:13→19:18)
[2019-05-17 09:30] LABS: Basophils % (A) 0 %; Eosinophils % (A) 0 %; HCT 35.7 % (34.0-46.0); HGB 11.1 gm/dL (11.4-16.0); Hypochromasia Moderate; Lymphocytes # (A) 1.1 k/uL (1.0-4.8); Lymphocytes % (A) 18 %; MCH 28.1 pg (25.0-35.0); MCHC 31.2 g/dL (31.0-37.0); MCV 90.1 fL (80.0-100.0); Mean Platelet Volume 9.4; Monocytes # (A) 0.3 k/uL (0-1.0); Monocytes % (A) 4 %; Neutrophils # (A) 4.6 k/uL (1.3-7.7); Neutrophils % (A) 77 %; Platelet Count 206 k/uL (150-450); RBC 3.97 m/uL (3.80-5.40); RDW 13.8 % (11.5-15.5)
[2019-05-17 09:58] LABS: ALT 20 U/L (9-52); AST 19 U/L (14-36); African American GFR (CKD) >90 (>60 ml/min/1.73 sqM); Albumin 3.8 g/dL (3.5-5.0); Alkaline Phosphatase 78 U/L (38-126); Anion Gap 11 mmol/L; Blood Urea Nitrogen 24 mg/dL (7-17); Carbon Dioxide 27 mmol/L (22-30); Chloride 98 mmol/L (98-107); Glucose 363 mg/dL (74-99); Potassium 4.4 mmol/L (3.5-5.1); Sodium 136 mmol/L (137-145); Total Bilirubin 0.3 mg/dL (0.2-1.3); Total Protein 7.2 g/dL (6.3-8.2)
--- NOTE | 2019-05-17 11:11 | P.PN ---
Subjective Progress Note Date: 05/17/19 Nancy Celestin is a 73-year-old female who presented to [facility] emergency Department with chief complaint of shortness of breath. Patient states it started 2 days ago with a runny nose and congestion. Patient started having shortness of breath which worsened over the last 2 days she had occasional cough patient has a known history of asthma, she tried to take nebulizer treatment at home with minimal improvement she decided to come to emergency room, she was evaluated in emergency room that and had evidence of pneumonia she was started on IV antibiotic and was admitted to medical floor pulmonary consultation was requested. On 05/15/2019 patient was seen and examined on the medical floor she is alert and oriented 3 in no apparent distress there is no fever or chills no headache or dizziness no chest pain no shortness of breath she is still complaining of nasal congestion and cough with yellow-green sputum production there is no nausea or vomiting no abdominal pain no diarrhea and no urinary symptoms 05/16/2019 patient reports that her breathing is doing better. She still having some wheezing when walking back from the bathroom. Blood pressures elevated at 176/81 she's receiving IV hydralazine. Patient was started on Norvasc during this admission. Also will add hydrochlorothiazide 25 mg daily. Patient denies any chest pain, nausea or vomiting, or urinary symptoms. 05/17/2019 patient complaining of wheezing throughout the night. She required extra breathing treatment. Hydrochlorothiazide was added yesterday. Awaiting repeat blood pressure after medications given this morning. Blood pressure. This morning was 194/82. Patient is complaining of watery eyes and nasal congestion. Flonase started yesterday. Also will start Claritin. She is complaining of constipation is been about 3-4 days since last bowel movement. Colace and MiraLAX ordered. She refused lactulose at this time. She denies any chest pain or nausea and vomiting. Objective - Vital Signs Vital signs: Vital Signs Temp 97.4 F L 05/17/19 05:00 Pulse 88 05/17/19 08:45 Resp 20 05/17/19 05:00 BP 194/82 05/17/19 05:00 Pulse Ox 99 05/17/19 05:00 Intake & Output 05/16/19 05/17/19 05/17/19 18:59 06:59 18:59 Intake Total 300 240 Balance 300 240 Intake: Intake, IV Titration 300 Amount Azithromycin 500 mg In 250 Sodium Chloride 0.9% 250 ml @ 125 mls/hr IVPB DAILY [facility] Rx#:[id number] cefTRIAXone 1 gm In 50 Sodium Chloride 0.9% 50 ml @ 100 mls/hr IVPB Q24HR [facility] Rx#:[id number] Oral 240 Other: Voiding Method Toilet Toilet # Voids 2 2 - Exam Head normocephalic Neck supple Lungs expiratory wheezing noted bilaterally Heart regular rate and rhythm S1-S2, no rub or gallop Abdomen is soft nontender nondistended positive bowel sounds no hepatosplenomegaly Extremities swelling noted bilateral lower extremities Neuro alert and orientated to 3 - Labs CBC & Chem 7: 05/17/19 09:15 05/17/19 09:15 Labs: Abnormal Lab Results - Last 24 Hours (Table) 05/16/19 05/16/19 05/16/19 Range/Units 08:02 11:35 17:05 Hgb (11.4-16.0) gm/dL Sodium (137-145) mmol/L BUN (7-17) mg/dL Glucose (74-99) mg/dL POC Glucose (mg/dL) 253 H 279 H (75-99) mg/dL Hemoglobin A1c 7.7 H (4.0-6.0) % 05/16/19 05/17/19 05/17/19 Range/Units 19:57 07:00 09:15 Hgb 11.1 L (11.4-16.0) gm/dL Sodium (137-145) mmol/L BUN (7-17) mg/dL Glucose (74-99) mg/dL POC Glucose (mg/dL) 278 H 280 H (75-99) mg/dL Hemoglobin A1c (4.0-6.0) % 05/17/19 Range/Units 09:15 Hgb (11.4-16.0) gm/dL Sodium 136 L (137-145) mmol/L BUN 24 H (7-17) mg/dL Glucose 363 H (74-99) mg/dL POC Glucose (mg/dL) (75-99) mg/dL Hemoglobin A1c (4.0-6.0) % Microbiology - Last 24 Hours (Table) 05/15/19 04:18 Gram Stain - Final Sputum Sputum Culture - Final Assessment and Plan Assessment: #1 possible pneumonia chest x-rays showing perihilar infiltrate and bilateral basilar infiltrate she was started on IV Rocephin and IV Zithromax in the emergency room will continue. Sputum culture normal respiratory alexsandra. Pulmonary following. Pro-calcitonin level normal at 0.05 #2 acute exacerbation of moderate persistent chronic bronchial asthma continue DuoNeb updrafts, IV steroids Pulmicort and Perforomist. Pulmonary service is following closely. #3 underlying history of hypertension #4 underlying history of diabetes mellitus type 2. Elevated blood sugars secondary to steroids. Hemoglobin A1c 7.7 #5 underlying history of hyperlipidemia #6 essential hypertension: Blood pressures are uncontrolled. Continue the hydrochlorothiazide and Norvasc was added during this admission. Continue IV hydralazine as needed. Awaiting repeat blood pressure from this morning. We'll make further adjustments to medications as needed #7 recent sinus infection and patient still having some sinus congestion will resume her Flonase nasal spray. Add Claritin #8 morbid obesity 9. Constipation add Colace and MiraLAX 10. CT chest shows Bibasilar areas of atelectasis or scarring 1.1 cm nodular density in the inferior lingula could represent a nodular area of atelectasis or scarring 3 month follow-up CT recommended to reassess. Pulmonary arterial hypertension and CAD. Artifact within the upper abdomen difficult to exclude a 1.7 cm enhancing lesion in the mid left kidney. Pulmonary is following. Order incentive spirometry for atelectasis. Consult physical therapy. Encouraged patient to ambulate GI prophylaxis Pepcid and DVT prophylaxis Lovenox I performed an examination of the patient and discussed their management with the physician Historical Interpreter. I have reviewed the Physician Historical Interpreter's notes and agree with the documented findings and plan of care
[2019-05-17 11:30] LABS: Glucose,Whole Blood 309 mg/dL (75-99)
--- NOTE | 2019-05-17 11:32 | P.PN ---
Subjective Progress Note Date: 05/17/19 Principal diagnosis: Acute exacerbation of moderate persistent chronic bronchial asthma This is 73-year-old female patient of Dr. Shelby, with past medical history of moderately persistent bronchial asthma, who was recently treated for a sinus infection with a course of antibiotics, and patient finished it on May 05. She stated her symptoms did improve after that, however on she was out with her friend, and she started getting watery eyes, increased nasal drainage which was clear, increased sinus congestion. She returned home her chest was feeling tight, she was having difficulty breathing. She took her nebulized bronchodilator, and her symptoms became worse, and she came into the hospital on 05/14/2019 to the emergency department. Patient states her symptoms usually are well-controlled other than during the weather change, with high humidity and hot weather. Patient also has ALLERGIES to pollen, dust and ragweed. Chest x- ray was obtained showing basilar atelectasis or infiltrates with tiny effusions, patchy perihilar changes with interstitial pneumonitis or venous congestion. She denied fever or chills, no nausea vomiting or diarrhea. Labs did not show any leukocytosis, white blood cell count is 4.9, hemoglobin is 11.4, INR 0.9, serum sodium is 140, potassium is 3.4, chloride was 101, CO2 is 31, BUN is 14, creatinine 0.70, troponin was negative 1, proBNP was 492, influenza screen was negative. Patient was started on nebulized bronchodilators, she was given a dose of IV Solu-Medrol 125 mg in the emergency department, empiric antibiotics in the form of Zithromax and Rocephin, and was admitted for further management. Other medical history includes diabetes mellitus, hypertension, hyperlipidemia, CVA/TIA, rheumatoid arthritis, and patient is under the care of Dr. Potter, on [facility] for maintenance. On 05/16/2019 patient seen in follow-up on medical surgical floor. She is moving better air today, sounds more wheezing and bronchospastic, with better air entry at lower bases of the lungs. She states she is breathing easier, although not back to normal, room air pulse ox is 97%, she is afebrile, hemodynamically patient is stable, as a positive for diffuse wheezes bilaterally, patient is on IV steroids at 40 mg every 12 hours, she is on Pulmicort and Perforomist, nebulized bronchodilators, Zithromax and Rocephin, urine culture has been sent, preliminary Gram stain showed few gram-positive cocci and peers in chains few gram-negative bacilli, final cultures pending. The patient is seen today 05/17/2019 in follow-up on the regular medical floor. She is currently sitting up in bed. Awake and alert in no acute distress. Breathing easier today as compared to yesterday. Still somewhat bronchospastic and wheezy mostly with exertion. O2 saturations in the high 90s on 2 L/m per nasal cannula. She's afebrile. Slightly hypertensive. Sputum culture reveals no growth. White count 6.0. Hemoglobin 11.1. Creatinine 0.73. Sputum culture reveals no growth. Remains on DuoNeb inhalations, Pulmicort and Perforomist inhalations, IV Solu-Medrol. Computed tomography scan of the chest reveals prominent strandy bibasilar atelectasis/scarring. There is a 1.1 cm nodular density in the inferior lingula could represent atelectasis/scar. A 1.7 cm lesion of the left kidney. Objective - Vital Signs Vital signs: Vital Signs Temp 97.4 F L 05/17/19 05:00 Pulse 88 05/17/19 08:45 Resp 20 05/17/19 05:00 BP 194/82 05/17/19 05:00 Pulse Ox 99 05/17/19 05:00 Intake & Output 05/16/19 05/17/19 05/17/19 18:59 06:59 18:59 Intake Total 300 240 Balance 300 240 Intake: Intake, IV Titration 300 Amount Azithromycin 500 mg In 250 Sodium Chloride 0.9% 250 ml @ 125 mls/hr IVPB DAILY [facility] Rx#:[id number] cefTRIAXone 1 gm In 50 Sodium Chloride 0.9% 50 ml @ 100 mls/hr IVPB Q24HR [facility] Rx#:[id number] Oral 240 Other: Voiding Method Toilet Toilet # Voids 2 2 - Exam GENERAL EXAM: Pleasant 73-year-old female patient. Alert, comfortable in no apparent distress. On O2 at 2 L. HEAD: Normocephalic. EYES: Normal reaction of pupils, equal size. NOSE: Clear with pink turbinates. THROAT: No erythema or exudates. NECK: No masses, no JVD. CHEST: No chest wall deformity. LUNGS: Equal air entry with bilateral end expiratory wheeze, diminished. CVS: S1 and S2 normal with no audible murmur, regular rhythm. ABDOMEN: No hepatosplenomegaly, normal bowel sounds, no guarding or rigidity. SPINE: No scoliosis or deformity SKIN: No rashes CENTRAL NERVOUS SYSTEM: No focal deficits, tone is normal in all 4 extremities. EXTREMITIES: There is no peripheral edema. No clubbing, no cyanosis. Peripheral pulses are intact. - Labs CBC & Chem 7: 05/17/19 09:15 05/17/19 09:15 Labs: Abnormal Lab Results - Last 24 Hours (Table) 05/16/19 05/16/19 05/16/19 Range/Units 08:02 11:35 17:05 Hgb (11.4-16.0) gm/dL Sodium (137-145) mmol/L BUN (7-17) mg/dL Glucose (74-99) mg/dL POC Glucose (mg/dL) 253 H 279 H (75-99) mg/dL Hemoglobin A1c 7.7 H (4.0-6.0) % 05/16/19 05/17/19 05/17/19 Range/Units 19:57 07:00 09:15 Hgb 11.1 L (11.4-16.0) gm/dL Sodium (137-145) mmol/L BUN (7-17) mg/dL Glucose (74-99) mg/dL POC Glucose (mg/dL) 278 H 280 H (75-99) mg/dL Hemoglobin A1c (4.0-6.0) % 05/17/19 Range/Units 09:15 Hgb (11.4-16.0) gm/dL Sodium 136 L (137-145) mmol/L BUN 24 H (7-17) mg/dL Glucose 363 H (74-99) mg/dL POC Glucose (mg/dL) (75-99) mg/dL Hemoglobin A1c (4.0-6.0) % Microbiology - Last 24 Hours (Table) 05/15/19 04:18 Gram Stain - Final Sputum Sputum Culture - Final Assessment and Plan Assessment: Assessment: #1. Acute exacerbation of moderate persistent chronic bronchial asthma, chest x-ray showed basilar atelectasis, with tiny pleural effusions, and pulmonary arterial hypertension. Triggers include change in weather, pollen, dust and ragweed #2. Recent sinus infection, and patient was treated with outpatient course of oral antibiotics completed on May 05 #3. Steroid-induced hyperglycemia #4. Diabetes mellitus type 2 #5. Hypertension #6. Hyperlipidemia #7. Morbid obesity Plan: The patient was seen and evaluated by Dr. Wilkinson. We'll continue with the current medications for now. Increase her activity as tolerated. We'll continue to follow make further recommendations based on her clinical status. I, the cosigning physician, performed a history & physical examination of the patient. Lungs sounds with bilateral end expiratory wheeze. Maintaining good O2 saturations in the 90s on 2 L/m per nasal cannula. I discussed the assessment and plan of care with my nurse practitioner, Ela Bermeo. I attest to the above note as dictated by her.
[2019-05-17] MEDS: DOCUSATE 100 MG CAP PO SCH ×2 (12:42→21:56)
[2019-05-17] MEDS: POLYETHYLENE GLYCOL 3350 17 GM POWD.PACK PO SCH (12:42)
[2019-05-17] MEDS: LORATADINE 10 MG TAB PO SCH (12:43)
--- NOTE | 2019-05-17 14:16 | US ---
EXAMINATION TYPE: US renals and bladder DATE OF EXAM: 05/17/2019 COMPARISON: CT CLINICAL HISTORY: abnormal CT, possible kidney lesion; possible mid pole left kidney mass; diabetic EXAM MEASUREMENTS: Right Kidney: 12.9 x 6.6 x 5.4 cm Left Kidney: 11.9 x 6.1 x 5.5 cm Post Void Residual Volume: not assessed on inpatient Right Kidney:No hydronephrosis or masses seen Left Kidney: mid pole lobular cortex noted with inner pyramids seen as this area is isoechoic to surr ounding cortex Bladder: wnl Bilateral Jets seen: no, only small right jet was seen with 3 minute observation There is no evidence for hydronephrosis at this point in time. No nephrolithiasis is seen. The urina ry bladder is anechoic. IMPRESSION: Lobular contour of the left kidney corresponding to the questioned mass on prior CT chest dated 019. This is equivocal for neoplasm and three-phase abdominal CT or MRI are recommended for full rk acterization to evaluate for enhancement characteristics.
--- NOTE | 2019-05-17 15:53 | CDI ---
Documentation Clarification Form Date: 05/17/2019 3:39:20 PM From: Jacy Nunes RN CCDS Admit Date: 05/14/2019 10:39:00 AM Patient Name: Nancy Celestin Visit Number: [id number] Discharge Date: ATTENTION: The Clinical Documentation Specialists (CDI) and [facility] Coding Staff appreciate your assistance in clarifying documentation. Please respond to the clarification below the line at the bottom and electronically sign. The CDI & [facility] Coding staff will review the response and follow-up if needed. Please note: Queries are made part of the Legal Health Record. If you have any questions, please contact the author of this message via ITS. Dr. Kj Wilkinson 73 year old female presents to the ED with shortness of breath that has worsened in the past two days. History/Risk Factors: Medical history of moderate persistent chronic bronchial asthma. In acute exacerbation. Clinical Indicators: Per your Progress note 05/17/2019 Lungs sounds with bilateral end expiratory wheeze.Maintaining good O2 saturations in the 90s on 2 L/m per nasal cannula CXR - Stable Basilar atelectasis or infiltrate with tiny effusions.Patchy perihilar changes can be seen with interstitial pneumonitis or venous congestion correlate clinically. 2.Prominent pulmonary arteries correlate for pulmonary arterial hypertension. Vital Signs: 135/84 70 98.1 17 98% 2L nasal cannula Other Clinical Indicators: Treatment: 2L oxygen Consults: Pulmonology In your professional opinion, can you please clarify diagnosis of respiratory need of oxygen ? o Acute Respiratory Distress o Acute Respiratory Failure o Other, please specify o Unable to determine (Last Revision: February 2018) MTDD
[2019-05-17] MEDS: FUROSEMIDE 20 MG TAB PO SCH (16:12)
[2019-05-17 17:11] LABS: Glucose,Whole Blood 226 mg/dL (75-99)
[2019-05-17 20:41] LABS: Glucose,Whole Blood 255 mg/dL (75-99)
[2019-05-17] MEDS: EZETIMIBE 10 MG TAB PO SCH (21:56)
[2019-05-18] MEDS: IPRATROPIUM-ALBUTEROL 3 ML NEB INHALATION PRN ×2 (03:05→23:43)
[2019-05-18] MEDS: IPRATROPIUM-ALBUTEROL 3 ML NEB INHALATION SCH ×4 (08:26→19:49)
[2019-05-18] MEDS: FORMOTEROL FUMARATE 20 MCG/2 ML NEBU INHALATION SCH ×2 (08:26→19:49)
[2019-05-18] MEDS: BUDESONIDE 1 MG/2 ML NEBU INHALATION SCH ×2 (08:26→19:49)
[2019-05-18 08:52] LABS: Basophils % (A) 0 %; Eosinophils % (A) 1 %; HGB 11.2 gm/dL (11.4-16.0); Lymphocytes # (A) 0.9 k/uL (1.0-4.8); Lymphocytes % (A) 14 %; MCHC 31.1 g/dL (31.0-37.0); Mean Platelet Volume 8.7; Monocytes # (A) 0.2 k/uL (0-1.0); Monocytes % (A) 4 %; Neutrophils # (A) 4.9 k/uL (1.3-7.7); Neutrophils % (A) 80 %; Platelet Count 245 k/uL (150-450); RDW 13.3 % (11.5-15.5); WBC 6.2 k/uL (3.8-10.6)
[2019-05-18] MEDS: LORATADINE 10 MG TAB PO SCH (09:05)
[2019-05-18] MEDS: CHOLECALCIFEROL 1,000 UNIT TAB PO SCH (09:05)
[2019-05-18] MEDS: INSULIN ASPART (NovoLOG) 100 UNIT/ML VIAL SQ SCH ×4 (09:05→22:15)
[2019-05-18] MEDS: metFORMIN 500 MG TAB PO SCH (09:05)
[2019-05-18] MEDS: FUROSEMIDE 20 MG TAB PO SCH ×2 (09:06→16:14)
[2019-05-18] MEDS: CLOPIDOGREL 75 MG TAB PO SCH (09:06)
[2019-05-18] MEDS: GABAPENTIN 300 MG CAP PO SCH ×3 (09:06→21:30)
[2019-05-18] MEDS: AZITHROMYCIN 500 MG TAB PO SCH (09:06)
[2019-05-18] MEDS: amLODIPine 5 MG TAB PO SCH (09:06)
[2019-05-18] MEDS: FAMOTIDINE 20 MG TAB PO SCH (09:06)
[2019-05-18] MEDS: MAGNESIUM OXIDE 400 MG TAB PO SCH (09:07)
[2019-05-18] MEDS: ENOXAPARIN 40 MG/0.4 ML SYRINGE SQ SCH (09:07)
[2019-05-18] MEDS: glipiZIDE 5 MG TAB PO SCH (09:07)
[2019-05-18] MEDS: HYDROCHLOROTHIAZIDE 25 MG TAB PO SCH (09:07)
[2019-05-18] MEDS: DOCUSATE 100 MG CAP PO SCH ×2 (09:07→21:29)
[2019-05-18] MEDS: POLYETHYLENE GLYCOL 3350 17 GM POWD.PACK PO SCH (09:07)
[2019-05-18] MEDS: methylPREDNISolone SOD SUCCI 40 MG/ML 1 ML VIAL IV SCH ×2 (09:08→21:29)
[2019-05-18] MEDS: METOPROLOL SUCCINATE (ER) 25 MG TAB.ER.24H PO SCH (09:08)
[2019-05-18] MEDS: FLUTICASONE 50MCG/SPRAY NASAL 16GM EA NOSTRIL SCH (09:08)
[2019-05-18 09:16] LABS: ALT 21 U/L (9-52); AST 19 U/L (14-36); African American GFR (CKD) >90 (>60 ml/min/1.73 sqM); Alkaline Phosphatase 74 U/L (38-126); Anion Gap 9 mmol/L; Blood Urea Nitrogen 29 mg/dL (7-17); Calcium 9.5 mg/dL (8.4-10.2); Carbon Dioxide 31 mmol/L (22-30); Chloride 97 mmol/L (98-107); Glucose 296 mg/dL (74-99); Potassium 4.9 mmol/L (3.5-5.1); Sodium 137 mmol/L (137-145); Total Bilirubin 0.4 mg/dL (0.2-1.3); Total Protein 7.4 g/dL (6.3-8.2)
--- NOTE | 2019-05-18 09:20 | P.PN ---
Subjective Progress Note Date: 05/18/19 Nancy Celestin is a 73-year-old female who presented to [facility] emergency Department with chief complaint of shortness of breath. Patient states it started 2 days ago with a runny nose and congestion. Patient started having shortness of breath which worsened over the last 2 days she had occasional cough patient has a known history of asthma, she tried to take nebulizer treatment at home with minimal improvement she decided to come to emergency room, she was evaluated in emergency room that and had evidence of pneumonia she was started on IV antibiotic and was admitted to medical floor pulmonary consultation was requested. On 05/15/2019 patient was seen and examined on the medical floor she is alert and oriented 3 in no apparent distress there is no fever or chills no headache or dizziness no chest pain no shortness of breath she is still complaining of nasal congestion and cough with yellow-green sputum production there is no nausea or vomiting no abdominal pain no diarrhea and no urinary symptoms 05/16/2019 patient reports that her breathing is doing better. She still having some wheezing when walking back from the bathroom. Blood pressures elevated at 176/81 she's receiving IV hydralazine. Patient was started on Norvasc during this admission. Also will add hydrochlorothiazide 25 mg daily. Patient denies any chest pain, nausea or vomiting, or urinary symptoms. 05/17/2019 patient complaining of wheezing throughout the night. She required extra breathing treatment. Hydrochlorothiazide was added yesterday. Awaiting repeat blood pressure after medications given this morning. Blood pressure. This morning was 194/82. Patient is complaining of watery eyes and nasal congestion. Flonase started yesterday. Also will start Claritin. She is complaining of constipation is been about 3-4 days since last bowel movement. Colace and MiraLAX ordered. She refused lactulose at this time. She denies any chest pain or nausea and vomiting. On 05/18/2019 patient is alert and oriented 3. Patient reports some improvement with her shortness of breath but still having significant wheezing. Blood pressure slightly improved yesterday after addition of hydrochlorothiazide will continue to monitor. Patient remains on IV Solu-Medrol. This time patient denies chest pain. Patient denies any nausea vomiting or diarrhea. Patient denies any urinary burning or frequency. Objective - Vital Signs Vital signs: Vital Signs Temp 97.8 F 05/18/19 05:00 Pulse 82 05/18/19 08:54 Resp 18 05/18/19 05:00 BP 188/74 05/18/19 05:00 Pulse Ox 98 05/18/19 05:00 Intake & Output 05/17/19 05/18/19 05/18/19 18:59 06:59 18:59 Intake Total 50 960 Balance 50 960 Intake: Intake, IV Titration 50 Amount cefTRIAXone 1 gm In 50 Sodium Chloride 0.9% 50 ml @ 100 mls/hr IVPB Q24HR [facility] Rx#:[id number] Oral 960 Other: Voiding Method Toilet # Voids 2 # Bowel Movements 1 - Exam Head normocephalic Neck supple Lungs expiratory wheezing noted bilaterally Heart regular rate and rhythm S1-S2, no rub or gallop Abdomen is soft nontender nondistended positive bowel sounds no hepatosplenomegaly Extremities swelling noted bilateral lower extremities Neuro alert and orientated to 3 - Labs CBC & Chem 7: 05/18/19 07:46 05/17/19 09:15 Labs: Abnormal Lab Results - Last 24 Hours (Table) 05/17/19 05/17/19 05/17/19 Range/Units 09:15 09:15 11:29 Hgb 11.1 L (11.4-16.0) gm/dL Lymphocytes # (1.0-4.8) k/uL Sodium 136 L (137-145) mmol/L BUN 24 H (7-17) mg/dL Glucose 363 H (74-99) mg/dL POC Glucose (mg/dL) 309 H (75-99) mg/dL 05/17/19 05/17/19 05/18/19 Range/Units 17:10 20:32 07:46 Hgb 11.2 L (11.4-16.0) gm/dL Lymphocytes # 0.9 L (1.0-4.8) k/uL Sodium (137-145) mmol/L BUN (7-17) mg/dL Glucose (74-99) mg/dL POC Glucose (mg/dL) 226 H 255 H (75-99) mg/dL Microbiology - Last 24 Hours (Table) 05/15/19 04:18 Gram Stain - Final Sputum Sputum Culture - Final Assessment and Plan Assessment: #1 possible pneumonia chest x-rays showing perihilar infiltrate and bilateral basilar infiltrate she was started on IV Rocephin and IV Zithromax in the emergency room will continue. Sputum culture normal respiratory alexsandra. Pulmonary following. Pro-calcitonin level normal at 0.05. Patient remains on IV steroids. Pulmonary services are following #2 acute exacerbation of moderate persistent chronic bronchial asthma continue DuoNeb updrafts, IV steroids Pulmicort and Perforomist. Pulmonary service is following closely. #3 underlying history of hypertension #4 underlying history of diabetes mellitus type 2. Elevated blood sugars secondary to steroids. Hemoglobin A1c 7.7. Patient changed to scale D for insulin coverage #5 underlying history of hyperlipidemia #6 essential hypertension: Blood pressures are uncontrolled. Continue the hydrochlorothiazide and Norvasc was added during this admission. Continue IV hydralazine as needed. Awaiting repeat blood pressure from this morning. We'll make further adjustments to medications as needed #7 recent sinus infection and patient still having some sinus congestion will resume her Flonase nasal spray. Add Claritin #8 morbid obesity 9. Constipation add Colace and MiraLAX 10. CT chest shows Bibasilar areas of atelectasis or scarring 1.1 cm nodular density in the inferior lingula could represent a nodular area of atelectasis or scarring 3 month follow-up CT recommended to reassess. Pulmonary arterial hypertension and CAD. Artifact within the upper abdomen difficult to exclude a 1.7 cm enhancing lesion in the mid left kidney. Pulmonary is following. Order incentive spirometry for atelectasis. 11. 1.7 cm enhancing lesion in the midleft kidney. Renal ultrasound completed showing lobular contour left kidney corresponding to the question mass in prior CT chest dated 05/16/2019 this is equivocal for neoplasm and three-phase abdominal CT or MRI are recommended for for characterization to evaluate for enhancement characteristics Consult physical therapy. Encouraged patient to ambulate GI prophylaxis Pepcid and DVT prophylaxis Lovenox I performed an examination of the patient and discussed their management with the Nurse Practitioner. I have reviewed the Nurse Practitioner's notes and agree with the documented findings and plan of care
[2019-05-18 11:09] LABS: Glucose,Whole Blood 271 mg/dL (75-99)
--- NOTE | 2019-05-18 11:47 | P.PN ---
Subjective Progress Note Date: 05/18/19 Principal diagnosis: Acute exacerbation of moderate persistent chronic bronchial asthma This is 73-year-old female patient of Dr. Shelby, with past medical history of moderately persistent bronchial asthma, who was recently treated for a sinus infection with a course of antibiotics, and patient finished it on May 05. She stated her symptoms did improve after that, however on she was out with her friend, and she started getting watery eyes, increased nasal drainage which was clear, increased sinus congestion. She returned home her chest was feeling tight, she was having difficulty breathing. She took her nebulized bronchodilator, and her symptoms became worse, and she came into the hospital on 05/14/2019 to the emergency department. Patient states her symptoms usually are well-controlled other than during the weather change, with high humidity and hot weather. Patient also has ALLERGIES to pollen, dust and ragweed. Chest x- ray was obtained showing basilar atelectasis or infiltrates with tiny effusions, patchy perihilar changes with interstitial pneumonitis or venous congestion. She denied fever or chills, no nausea vomiting or diarrhea. Labs did not show any leukocytosis, white blood cell count is 4.9, hemoglobin is 11.4, INR 0.9, serum sodium is 140, potassium is 3.4, chloride was 101, CO2 is 31, BUN is 14, creatinine 0.70, troponin was negative 1, proBNP was 492, influenza screen was negative. Patient was started on nebulized bronchodilators, she was given a dose of IV Solu-Medrol 125 mg in the emergency department, empiric antibiotics in the form of Zithromax and Rocephin, and was admitted for further management. Other medical history includes diabetes mellitus, hypertension, hyperlipidemia, CVA/TIA, rheumatoid arthritis, and patient is under the care of Dr. Potter, on [facility] for maintenance. On 05/16/2019 patient seen in follow-up on medical surgical floor. She is moving better air today, sounds more wheezing and bronchospastic, with better air entry at lower bases of the lungs. She states she is breathing easier, although not back to normal, room air pulse ox is 97%, she is afebrile, hemodynamically patient is stable, as a positive for diffuse wheezes bilaterally, patient is on IV steroids at 40 mg every 12 hours, she is on Pulmicort and Perforomist, nebulized bronchodilators, Zithromax and Rocephin, urine culture has been sent, preliminary Gram stain showed few gram-positive cocci and peers in chains few gram-negative bacilli, final cultures pending. The patient is seen today 05/17/2019 in follow-up on the regular medical floor. She is currently sitting up in bed. Awake and alert in no acute distress. Breathing easier today as compared to yesterday. Still somewhat bronchospastic and wheezy mostly with exertion. O2 saturations in the high 90s on 2 L/m per nasal cannula. She's afebrile. Slightly hypertensive. Sputum culture reveals no growth. White count 6.0. Hemoglobin 11.1. Creatinine 0.73. Sputum culture reveals no growth. Remains on DuoNeb inhalations, Pulmicort and Perforomist inhalations, IV Solu-Medrol. Computed tomography scan of the chest reveals prominent strandy bibasilar atelectasis/scarring. There is a 1.1 cm nodular density in the inferior lingula could represent atelectasis/scar. A 1.7 cm lesion of the left kidney. The patient is seen today 05/18/2019 in follow-up on the regular medical floor. She is awake and alert in no acute distress. Resting comfortably in bed. She is improved today as compared to yesterday. Still not quite back to her base line. Still with some wheezing. Still with some dyspnea on exertion. Maintaining good O2 saturations in the upper 90s on 2 L/m per nasal cannula. She's afebrile. Sputum culture reveals no growth. White count 6.2. Hemoglobin 11.2. Creatinine 0.74. Objective - Vital Signs Vital signs: Vital Signs Temp 97.8 F 05/18/19 05:00 Pulse 82 05/18/19 08:54 Resp 18 05/18/19 05:00 BP 188/74 05/18/19 05:00 Pulse Ox 98 05/18/19 05:00 Intake & Output 05/17/19 05/18/19 05/18/19 18:59 06:59 18:59 Intake Total 50 960 Balance 50 960 Intake: Intake, IV Titration 50 Amount cefTRIAXone 1 gm In 50 Sodium Chloride 0.9% 50 ml @ 100 mls/hr IVPB Q24HR [facility] Rx#:[id number] Oral 960 Other: Voiding Method Toilet # Voids 2 # Bowel Movements 1 - Exam GENERAL EXAM: Pleasant 73-year-old obese female patient. Alert, comfortable in no apparent distress. On O2 at 2 L. HEAD: Normocephalic. EYES: Normal reaction of pupils, equal size. NOSE: Clear with pink turbinates. THROAT: No erythema or exudates. NECK: No masses, no JVD. CHEST: No chest wall deformity. LUNGS: Equal air entry with bilateral end expiratory wheeze, diminished. CVS: S1 and S2 normal with no audible murmur, regular rhythm. ABDOMEN: No hepatosplenomegaly, normal bowel sounds, no guarding or rigidity. SPINE: No scoliosis or deformity SKIN: No rashes CENTRAL NERVOUS SYSTEM: No focal deficits, tone is normal in all 4 extremities. EXTREMITIES: There is no peripheral edema. No clubbing, no cyanosis. Peripheral pulses are intact. - Labs CBC & Chem 7: 05/18/19 07:46 05/18/19 07:46 Labs: Abnormal Lab Results - Last 24 Hours (Table) 05/17/19 05/17/19 05/18/19 Range/Units 17:10 20:32 07:46 Hgb 11.2 L (11.4-16.0) gm/dL Lymphocytes # 0.9 L (1.0-4.8) k/uL Chloride (98-107) mmol/L Carbon Dioxide (22-30) mmol/L BUN (7-17) mg/dL Glucose (74-99) mg/dL POC Glucose (mg/dL) 226 H 255 H (75-99) mg/dL 05/18/19 05/18/19 Range/Units 07:46 11:05 Hgb (11.4-16.0) gm/dL Lymphocytes # (1.0-4.8) k/uL Chloride 97 L (98-107) mmol/L Carbon Dioxide 31 H (22-30) mmol/L BUN 29 H (7-17) mg/dL Glucose 296 H (74-99) mg/dL POC Glucose (mg/dL) 271 H (75-99) mg/dL Microbiology - Last 24 Hours (Table) 05/15/19 04:18 Gram Stain - Final Sputum Sputum Culture - Final Assessment and Plan Assessment: Assessment: #1. Acute exacerbation of moderate persistent chronic bronchial asthma, chest x-ray showed basilar atelectasis, with tiny pleural effusions, and pulmonary arterial hypertension. Triggers include change in weather, pollen, dust and ragweed #2. Recent sinus infection, and patient was treated with outpatient course of oral antibiotics completed on May 05 #3. Steroid-induced hyperglycemia #4. Diabetes mellitus type 2 #5. Hypertension #6. Hyperlipidemia #7. Morbid obesity #8. Mass on the left kidney without hydronephrosis. Equivocal for neoplasm. Plan: The patient was seen and evaluated by Dr. Wilkinson. We'll continue with the current medications for now. She remains on DuoNeb inhalations, Pulmicort and Perforomist inhalations, IV Solu-Medrol. Increase her activity as tolerated. Continue to work with the incentive spirometer. We'll continue to follow make further recommendations based on her clinical status. I, the cosigning physician, performed a history & physical examination of the patient. Lungs sounds with bilateral end expiratory wheeze. Maintaining good O2 saturations in the 90s on 2 L/m per nasal cannula. I discussed the assessment and plan of care with my nurse practitioner, Ela Bermeo. I attest to the above note as dictated by her.
[2019-05-18] MEDS: NON-FORMULARY DRUG (Ubidecarenone [Co Q-10] 100 MG) PO SCH (12:43)
--- NOTE | 2019-05-18 15:54 | P.GSCN ---
History of Present Illness Consult date: 05/18/19 Reason for Consult: Left renal mass History of present illness: The patient is a 73-year-old female admitted through the emergency room on 05/14 for evaluation of shortness of breath. The patient has a history of chronic bronchial asthma and was felt to have an exacerbation. She has been treated with steroids and Zithromax continues to have intermittent wheezing. Chest x- ray at the time of admission suggested possible basilar infiltrates. Computed tomography scan of the chest on 05/16 identified a 1.7 cm partially enhancing mass in the left kidney of uncertain significance. A gallstone was also noted. Renal ultrasound on 05/17 did not clearly characterize the lesion in the left kidney which was located in the region of the mid dual or pyramids. The patient has no other dedicated imaging of her kidneys for comparison. She has no flank pain but has had chronic low back pain. She has had no gross hematuria. She believes she may have had a kidney infection but this occurred over 30 years ago. Review of Systems - Constitutional Denies chills, Denies fever - Cardiovascular Reports high blood pressure, Reports shortness of breath - Respiratory Reports wheezing - Gastrointestinal Reports heartburn, Denies abdominal pain, Denies change in bowel habits Past Medical History Past Medical History: Asthma, CVA/TIA, Diabetes Mellitus, Hyperlipidemia, Hypertension Additional Past Medical History / Comment(s): rheumatoid arthritis History of Any Multi-Drug Resistant Organisms: None Reported Past Surgical History: Appendectomy, Tubal Ligation Additional Past Surgical History / Comment(s): Colonoscopy Past Anesthesia/Blood Transfusion Reactions: No Reported Reaction Past Psychological History: No Psychological Hx Reported Smoking Status: Never smoker Past Alcohol Use History: None Reported Past Drug Use History: None Reported - Past Family History Father Family Medical History: Cancer, Congestive Heart Failure (CHF) Additional Family Medical History / Comment(s): colon cancer Mother Family Medical History: Rheumatoid Arthritis (RA) Medications and Allergies Home Medications Medication Instructions Recorded Confirmed Type Cholecalciferol [Vitamin D3 (25 1,000 unit PO DAILY 05/14/19 05/14/19 History Mcg = 1000 Iu)] Clopidogrel [Plavix] 75 mg PO DAILY 05/14/19 05/14/19 History Ezetimibe [Zetia] 10 mg PO HS 05/14/19 05/14/19 History Gabapentin [Neurontin] 300 mg PO TID@0700,1500,2300 05/14/19 05/14/19 History Lisinopril 40 mg PO DAILY 05/14/19 05/14/19 History Magnesium Oxide [Magox 400] 400 mg PO DAILY 05/14/19 05/14/19 History Metoprolol Succinate (ER) [Toprol 25 mg PO DAILY 05/14/19 05/14/19 History Xl] Ubidecarenone [Co Q-10] 100 mg PO MOWEFR 05/14/19 05/14/19 History glipiZIDE [Glucotrol] 5 mg PO AC-BRKFST 05/14/19 05/14/19 History metFORMIN HCL 500 mg PO DAILY 05/14/19 05/14/19 History Allergies Allergy/AdvReac Type Severity Reaction Status Date / Time atorvastatin [From Lipitor] AdvReac CRAMPS Verified 05/14/19 09:32 Surgical - Exam Vital Signs Temp Pulse Resp BP Pulse Ox 98.8 F 79 26 H 124/89 96 05/14/19 09:05 05/14/19 09:05 05/14/19 09:05 05/14/19 09:05 05/14/19 09:05 - General well developed, well nourished, no distress, obese - ENT no hearing loss - Neck no masses, no lymphadectomy - Respiratory normal respiratory effort - Abdomen Abdomen: soft, non tender, no organomegaly Results - Labs 05/18/19 07:46 05/18/19 07:46 Abnormal Lab Results - Last 24 Hours (Table) 05/17/19 05/17/19 05/18/19 Range/Units 17:10 20:32 07:46 Hgb 11.2 L (11.4-16.0) gm/dL Lymphocytes # 0.9 L (1.0-4.8) k/uL Chloride (98-107) mmol/L Carbon Dioxide (22-30) mmol/L BUN (7-17) mg/dL Glucose (74-99) mg/dL POC Glucose (mg/dL) 226 H 255 H (75-99) mg/dL 05/18/19 05/18/19 Range/Units 07:46 11:05 Hgb (11.4-16.0) gm/dL Lymphocytes # (1.0-4.8) k/uL Chloride 97 L (98-107) mmol/L Carbon Dioxide 31 H (22-30) mmol/L BUN 29 H (7-17) mg/dL Glucose 296 H (74-99) mg/dL POC Glucose (mg/dL) 271 H (75-99) mg/dL Diabetes panel 05/18/19 Range/Units 07:46 Sodium 137 (137-145) mmol/L Potassium 4.9 (3.5-5.1) mmol/L Chloride 97 L (98-107) mmol/L Carbon Dioxide 31 H (22-30) mmol/L BUN 29 H (7-17) mg/dL Creatinine 0.74 (0.52-1.04) mg/dL Glucose 296 H (74-99) mg/dL Calcium 9.5 (8.4-10.2) mg/dL AST 19 (14-36) U/L ALT 21 (9-52) U/L Alkaline Phosphatase 74 (38-126) U/L Total Protein 7.4 (6.3-8.2) g/dL Albumin 4.0 (3.5-5.0) g/dL Calcium panel 05/18/19 Range/Units 07:46 Calcium 9.5 (8.4-10.2) mg/dL Albumin 4.0 (3.5-5.0) g/dL Pituitary panel 05/18/19 Range/Units 07:46 Sodium 137 (137-145) mmol/L Potassium 4.9 (3.5-5.1) mmol/L Chloride 97 L (98-107) mmol/L Carbon Dioxide 31 H (22-30) mmol/L BUN 29 H (7-17) mg/dL Creatinine 0.74 (0.52-1.04) mg/dL Glucose 296 H (74-99) mg/dL Calcium 9.5 (8.4-10.2) mg/dL Adrenal panel 05/18/19 Range/Units 07:46 Sodium 137 (137-145) mmol/L Potassium 4.9 (3.5-5.1) mmol/L Chloride 97 L (98-107) mmol/L Carbon Dioxide 31 H (22-30) mmol/L BUN 29 H (7-17) mg/dL Creatinine 0.74 (0.52-1.04) mg/dL Glucose 296 H (74-99) mg/dL Calcium 9.5 (8.4-10.2) mg/dL Total Bilirubin 0.4 (0.2-1.3) mg/dL AST 19 (14-36) U/L ALT 21 (9-52) U/L Alkaline Phosphatase 74 (38-126) U/L Total Protein 7.4 (6.3-8.2) g/dL Albumin 4.0 (3.5-5.0) g/dL Assessment and Plan (1) Left renal mass Narrative/Plan: I personally reviewed the patient's computed tomography scan and renal ultrasound. There does appear to be some enhancement of the left renal mass which is located in the medullary portion of the kidney. Unfortunately due to the patient's obesity a renal ultrasound is not the ideal study to further evaluate this. The radiologist suggested either MRI or computed tomography scan of the abdomen with and without IV contrast to better characterize the mass and I believe that the computed tomography scan would be the preferred next study. The patient has underlying diabetes mellitus and it would probably be best to defer this for a few days as she will require IV contrast again. This study could be set up as an outpatient. If this study is normal then no further evaluation will be necessary. If a mass is confirmed then the patient should be set up to see me for follow-up. Current Visit: Yes Status: Acute Code(s): N28.89 - OTHER SPECIFIED DISORDERS OF KIDNEY AND URETER SNOMED Code(s): 576434980
[2019-05-18 17:09] LABS: Glucose,Whole Blood 265 mg/dL (75-99)
[2019-05-18 19:21] LABS: Glucose,Whole Blood 328 mg/dL (75-99)
[2019-05-18] MEDS: EZETIMIBE 10 MG TAB PO SCH (21:29)
[2019-05-18] MEDS ORDERED: INSULIN ASPART (NovoLOG) 100 UNIT/ML VIAL SQ ONE (22:10)
[2019-05-19] MEDS: IPRATROPIUM-ALBUTEROL 3 ML NEB INHALATION PRN (03:24)
[2019-05-19] MEDS: FORMOTEROL FUMARATE 20 MCG/2 ML NEBU INHALATION SCH ×2 (07:09→19:15)
[2019-05-19] MEDS: BUDESONIDE 1 MG/2 ML NEBU INHALATION SCH ×2 (07:09→19:15)
[2019-05-19] MEDS: IPRATROPIUM-ALBUTEROL 3 ML NEB INHALATION SCH ×4 (07:09→19:15)
[2019-05-19 07:17] LABS: Glucose,Whole Blood 254 mg/dL (75-99)
[2019-05-19] MEDS: GABAPENTIN 300 MG CAP PO SCH ×3 (09:28→21:27)
[2019-05-19] MEDS: AZITHROMYCIN 500 MG TAB PO SCH (09:28)
[2019-05-19] MEDS: LORATADINE 10 MG TAB PO SCH (09:28)
[2019-05-19] MEDS: FUROSEMIDE 20 MG TAB PO SCH ×2 (09:28→15:27)
[2019-05-19] MEDS: LISINOPRIL 20 MG TAB PO SCH (09:29)
[2019-05-19] MEDS: MAGNESIUM OXIDE 400 MG TAB PO SCH (09:29)
[2019-05-19] MEDS: DOCUSATE 100 MG CAP PO SCH ×2 (09:29→20:26)
[2019-05-19] MEDS: HYDROCHLOROTHIAZIDE 25 MG TAB PO SCH (09:29)
[2019-05-19] MEDS: CLOPIDOGREL 75 MG TAB PO SCH (09:29)
[2019-05-19] MEDS: glipiZIDE 5 MG TAB PO SCH (09:29)
[2019-05-19] MEDS: FAMOTIDINE 20 MG TAB PO SCH (09:29)
[2019-05-19] MEDS: metFORMIN 500 MG TAB PO SCH (09:29)
[2019-05-19] MEDS: CHOLECALCIFEROL 1,000 UNIT TAB PO SCH (09:29)
[2019-05-19] MEDS: ENOXAPARIN 40 MG/0.4 ML SYRINGE SQ SCH (09:30)
[2019-05-19] MEDS: amLODIPine 5 MG TAB PO SCH (09:30)
[2019-05-19] MEDS: METOPROLOL SUCCINATE (ER) 25 MG TAB.ER.24H PO SCH (09:30)
[2019-05-19] MEDS: methylPREDNISolone SOD SUCCI 40 MG/ML 1 ML VIAL IV SCH (09:30)
[2019-05-19] MEDS: INSULIN ASPART (NovoLOG) 100 UNIT/ML VIAL SQ SCH ×4 (09:30→21:21)
[2019-05-19 09:43] LABS: Basophils % (A) 0 %; Eosinophils % (A) 0 %; HCT 36.2 % (34.0-46.0); HGB 11.5 gm/dL (11.4-16.0); Hypochromasia Slight; Lymphocytes # (A) 1.4 k/uL (1.0-4.8); Lymphocytes % (A) 21 %; MCH 27.8 pg (25.0-35.0); MCHC 31.7 g/dL (31.0-37.0); MCV 87.7 fL (80.0-100.0); Monocytes # (A) 0.4 k/uL (0-1.0); Monocytes % (A) 7 %; Neutrophils # (A) 4.5 k/uL (1.3-7.7); Neutrophils % (A) 70 %; Platelet Count 229 k/uL (150-450); RBC 4.13 m/uL (3.80-5.40); RDW 13.3 % (11.5-15.5); WBC 6.4 k/uL (3.8-10.6)
[2019-05-19 09:52] LABS: ALT 18 U/L (9-52); AST 19 U/L (14-36); African American GFR (CKD) >90 (>60 ml/min/1.73 sqM); Albumin 3.8 g/dL (3.5-5.0); Alkaline Phosphatase 69 U/L (38-126); Anion Gap 9 mmol/L; Blood Urea Nitrogen 34 mg/dL (7-17); Calcium 9.3 mg/dL (8.4-10.2); Carbon Dioxide 32 mmol/L (22-30); Chloride 95 mmol/L (98-107); Glucose 305 mg/dL (74-99); Potassium 4.7 mmol/L (3.5-5.1); Sodium 136 mmol/L (137-145); Total Bilirubin 0.4 mg/dL (0.2-1.3); Total Protein 7.1 g/dL (6.3-8.2)
[2019-05-19] MEDS: POLYETHYLENE GLYCOL 3350 17 GM POWD.PACK PO SCH (10:00)
[2019-05-19] MEDS: FLUTICASONE 50MCG/SPRAY NASAL 16GM EA NOSTRIL SCH (10:00)
--- NOTE | 2019-05-19 10:33 | P.PN ---
Subjective Progress Note Date: 05/19/19 Nancy Celestin is a 73-year-old female who presented to [facility] emergency Department with chief complaint of shortness of breath. Patient states it started 2 days ago with a runny nose and congestion. Patient started having shortness of breath which worsened over the last 2 days she had occasional cough patient has a known history of asthma, she tried to take nebulizer treatment at home with minimal improvement she decided to come to emergency room, she was evaluated in emergency room that and had evidence of pneumonia she was started on IV antibiotic and was admitted to medical floor pulmonary consultation was requested. On 05/15/2019 patient was seen and examined on the medical floor she is alert and oriented 3 in no apparent distress there is no fever or chills no headache or dizziness no chest pain no shortness of breath she is still complaining of nasal congestion and cough with yellow-green sputum production there is no nausea or vomiting no abdominal pain no diarrhea and no urinary symptoms 05/16/2019 patient reports that her breathing is doing better. She still having some wheezing when walking back from the bathroom. Blood pressures elevated at 176/81 she's receiving IV hydralazine. Patient was started on Norvasc during this admission. Also will add hydrochlorothiazide 25 mg daily. Patient denies any chest pain, nausea or vomiting, or urinary symptoms. 05/17/2019 patient complaining of wheezing throughout the night. She required extra breathing treatment. Hydrochlorothiazide was added yesterday. Awaiting repeat blood pressure after medications given this morning. Blood pressure. This morning was 194/82. Patient is complaining of watery eyes and nasal congestion. Flonase started yesterday. Also will start Claritin. She is complaining of constipation is been about 3-4 days since last bowel movement. Colace and MiraLAX ordered. She refused lactulose at this time. She denies any chest pain or nausea and vomiting. On 05/18/2019 patient is alert and oriented 3. Patient reports some improvement with her shortness of breath but still having significant wheezing. Blood pressure slightly improved yesterday after addition of hydrochlorothiazide will continue to monitor. Patient remains on IV Solu-Medrol. This time patient denies chest pain. Patient denies any nausea vomiting or diarrhea. Patient denies any urinary burning or frequency. 05/19/2019 patient is still wheezing. She is not complaining of shortness of b reath. Still remaining on IV steroids. Discussed with pulmonary nurse practitioner. Patient's blood sugars are elevated due to the steroids. She is requiring extra insulin. We'll add Lantus 10 units daily. She's had blood sugars in the 300s. Last blood sugar 254. Patient seen by urology regarding questionable renal mass. They're recommending a computed tomography scan of the abdomen with and without IV contrast in a couple of days due to her recent computed tomography scan of the chest. Patient's blood pressures are still elevated this morning 164/73. Awaiting repeat blood pressure after medications given. Patient denies any chest pain. Reports having bowel movements. Denies any difficulty urinating. Objective - Vital Signs Vital signs: Vital Signs Temp 98.3 F 05/19/19 04:15 Pulse 72 05/19/19 07:20 Resp 18 05/19/19 04:15 BP 164/73 05/19/19 04:15 Pulse Ox 98 05/19/19 04:15 Intake & Output 05/18/19 05/19/19 05/19/19 18:59 06:59 18:59 Intake Total 650 Balance 650 Intake: Intake, IV Titration 50 Amount cefTRIAXone 1 gm In 50 Sodium Chloride 0.9% 50 ml @ 100 mls/hr IVPB Q24HR [facility] Rx#:[id number] Oral 600 Other: Voiding Method Toilet Toilet # Voids 3 1 # Bowel Movements 0 - Exam Head normocephalic Neck supple Lungs expiratory wheezing noted bilaterally Heart regular rate and rhythm S1-S2, no rub or gallop Abdomen is soft nontender nondistended positive bowel sounds no hepatosplenomegaly Extremities swelling noted bilateral lower extremities Neuro alert and orientated to 3 - Labs CBC & Chem 7: 05/19/19 08:33 05/19/19 08:33 Labs: Abnormal Lab Results - Last 24 Hours (Table) 05/18/19 05/18/19 05/18/19 Range/Units 11:05 17:07 19:19 Sodium (137-145) mmol/L Chloride (98-107) mmol/L Carbon Dioxide (22-30) mmol/L BUN (7-17) mg/dL Glucose (74-99) mg/dL POC Glucose (mg/dL) 271 H 265 H 328 H (75-99) mg/dL 05/19/19 05/19/19 Range/Units 07:14 08:33 Sodium 136 L (137-145) mmol/L Chloride 95 L (98-107) mmol/L Carbon Dioxide 32 H (22-30) mmol/L BUN 34 H (7-17) mg/dL Glucose 305 H (74-99) mg/dL POC Glucose (mg/dL) 254 H (75-99) mg/dL Assessment and Plan Assessment: #1 possible pneumonia chest x-rays showing perihilar infiltrate and bilateral basilar infiltrate she was started on IV Rocephin and po Zithromax in the emergency room. She is currently on oral azithromycin. Sputum culture normal respiratory alexsandra. Pulmonary following. Pro-calcitonin level normal at 0.05. Discussed with pulmonary service. They're recommending a repeat sputum culture. #2 acute exacerbation of moderate persistent chronic bronchial asthma continue DuoNeb updrafts, IV steroids Pulmicort and Perforomist. Pulmonary service is following closely. #3 underlying history of hypertension #4 underlying history of diabetes mellitus type 2. Elevated blood sugars secondary to steroids. Hemoglobin A1c 7.7. Uncontrolled blood sugars secondary to steroids will be adding Lantus 10 units daily. Discontinue metformin since patient is currently not need another computed tomography scan requiring contrast #5 underlying history of hyperlipidemia #6 essential hypertension: Blood pressures are uncontrolled. Continue the hydrochlorothiazide and Norvasc was added during this admission. Continue IV hydralazine as needed. Awaiting repeat blood pressure from this morning. We'll make further adjustments to medications as needed #7 recent sinus infection and patient still having some sinus congestion will resume her Flonase nasal spray. Add Claritin #8 morbid obesity 9. Constipation improving with Colace and MiraLAX 10. CT chest shows Bibasilar areas of atelectasis or scarring 1.1 cm nodular density in the inferior lingula could represent a nodular area of atelectasis or scarring 3 month follow-up CT recommended to reassess. Pulmonary arterial hypertension and CAD. Pulmonary is following. Order incentive spirometry for atelectasis. 11. 1.7 cm enhancing lesion in the midleft kidney. Renal ultrasound completed showing lobular contour left kidney corresponding to the question mass in prior CT chest dated 05/16/2019 this is equivocal for neoplasm and three-phase abdominal CT or MRI are recommended for for characterization to evaluate for enhancement characteristics. Patient seen by urology. They are recommending a CT scan of the abdomen with and without IV contrast in a few days since patient had a recent computed tomography scan of the chest with contrast. At this time metformin has been discontinued. Physical therapy recommending home care at discharge GI prophylaxis Pepcid and DVT prophylaxis Lovenox I performed an examination of the patient and discussed their management with the physician International Travel Consultant. I have reviewed the Physician International Travel Consultant's notes and agree with the documented findings and plan of care
[2019-05-19 11:09] LABS: Glucose,Whole Blood 192 mg/dL (75-99)
--- NOTE | 2019-05-19 11:15 | P.PN ---
Subjective Progress Note Date: 05/19/19 Principal diagnosis: Acute exacerbation of moderate persistent chronic bronchial asthma This is 73-year-old female patient of Dr. Shelby, with past medical history of moderately persistent bronchial asthma, who was recently treated for a sinus infection with a course of antibiotics, and patient finished it on May 05. She stated her symptoms did improve after that, however on she was out with her friend, and she started getting watery eyes, increased nasal drainage which was clear, increased sinus congestion. She returned home her chest was feeling tight, she was having difficulty breathing. She took her nebulized bronchodilator, and her symptoms became worse, and she came into the hospital on 05/14/2019 to the emergency department. Patient states her symptoms usually are well-controlled other than during the weather change, with high humidity and hot weather. Patient also has ALLERGIES to pollen, dust and ragweed. Chest x- ray was obtained showing basilar atelectasis or infiltrates with tiny effusions, patchy perihilar changes with interstitial pneumonitis or venous congestion. She denied fever or chills, no nausea vomiting or diarrhea. Labs did not show any leukocytosis, white blood cell count is 4.9, hemoglobin is 11.4, INR 0.9, serum sodium is 140, potassium is 3.4, chloride was 101, CO2 is 31, BUN is 14, creatinine 0.70, troponin was negative 1, proBNP was 492, influenza screen was negative. Patient was started on nebulized bronchodilators, she was given a dose of IV Solu-Medrol 125 mg in the emergency department, empiric antibiotics in the form of Zithromax and Rocephin, and was admitted for further management. Other medical history includes diabetes mellitus, hypertension, hyperlipidemia, CVA/TIA, rheumatoid arthritis, and patient is under the care of Dr. Potter, on [facility] for maintenance. On 05/16/2019 patient seen in follow-up on medical surgical floor. She is moving better air today, sounds more wheezing and bronchospastic, with better air entry at lower bases of the lungs. She states she is breathing easier, although not back to normal, room air pulse ox is 97%, she is afebrile, hemodynamically patient is stable, as a positive for diffuse wheezes bilaterally, patient is on IV steroids at 40 mg every 12 hours, she is on Pulmicort and Perforomist, nebulized bronchodilators, Zithromax and Rocephin, urine culture has been sent, preliminary Gram stain showed few gram-positive cocci and peers in chains few gram-negative bacilli, final cultures pending. The patient is seen today 05/17/2019 in follow-up on the regular medical floor. She is currently sitting up in bed. Awake and alert in no acute distress. Breathing easier today as compared to yesterday. Still somewhat bronchospastic and wheezy mostly with exertion. O2 saturations in the high 90s on 2 L/m per nasal cannula. She's afebrile. Slightly hypertensive. Sputum culture reveals no growth. White count 6.0. Hemoglobin 11.1. Creatinine 0.73. Sputum culture reveals no growth. Remains on DuoNeb inhalations, Pulmicort and Perforomist inhalations, IV Solu-Medrol. Computed tomography scan of the chest reveals prominent strandy bibasilar atelectasis/scarring. There is a 1.1 cm nodular density in the inferior lingula could represent atelectasis/scar. A 1.7 cm lesion of the left kidney. The patient is seen today 05/18/2019 in follow-up on the regular medical floor. She is awake and alert in no acute distress. Resting comfortably in bed. She is improved today as compared to yesterday. Still not quite back to her base line. Still with some wheezing. Still with some dyspnea on exertion. Maintaining good O2 saturations in the upper 90s on 2 L/m per nasal cannula. She's afebrile. Sputum culture reveals no growth. White count 6.2. Hemoglobin 11.2. Creatinine 0.74. The patient is seen today 05/19/2019 in follow-up on the regular medical floor. She is ambulating in the room up to the bathroom. She is still wheezing and short of breath with minimal exertion. Maintaining good O2 saturations in the high 90s on 2 L/m per nasal cannula. She's afebrile. Sputum culture reveals no growth. White count 6.4. Hemoglobin 11.5. Creatinine 0.68. Objective - Vital Signs Vital signs: Vital Signs Temp 98.3 F 05/19/19 04:15 Pulse 72 05/19/19 07:20 Resp 18 07/11/19 04:15 BP 164/73 05/19/19 04:15 Pulse Ox 98 05/19/19 04:15 Intake & Output 05/18/19 05/19/19 05/19/19 18:59 06:59 18:59 Intake Total 650 Balance 650 Intake: Intake, IV Titration 50 Amount cefTRIAXone 1 gm In 50 Sodium Chloride 0.9% 50 ml @ 100 mls/hr IVPB Q24HR [facility] Rx#:[id number] Oral 600 Other: Voiding Method Toilet Toilet # Voids 3 1 # Bowel Movements 0 - Exam GENERAL EXAM: Pleasant 73-year-old obese female patient. Comfortable in no apparent distress. On O2 at 2 L. HEAD: Normocephalic. EYES: Normal reaction of pupils, equal size. NOSE: Clear with pink turbinates. THROAT: Crowding of posterior pharynx. No erythema or exudates. NECK: No masses, no JVD. CHEST: No chest wall deformity. LUNGS: Equal air entry with bilateral end expiratory wheeze, diminished. CVS: S1 and S2 normal with no audible murmur, regular rhythm. ABDOMEN: No hepatosplenomegaly, normal bowel sounds, no guarding or rigidity. SPINE: No scoliosis or deformity SKIN: No rashes CENTRAL NERVOUS SYSTEM: No focal deficits, tone is normal in all 4 extremities. EXTREMITIES: There is trace peripheral edema. No clubbing, no cyanosis. Peripheral pulses are intact. - Labs CBC & Chem 7: 05/19/19 08:33 05/19/19 08:33 Labs: Abnormal Lab Results - Last 24 Hours (Table) 05/18/19 05/18/19 05/18/19 Range/Units 11:05 17:07 19:19 Sodium (137-145) mmol/L Chloride (98-107) mmol/L Carbon Dioxide (22-30) mmol/L BUN (7-17) mg/dL Glucose (74-99) mg/dL POC Glucose (mg/dL) 271 H 265 H 328 H (75-99) mg/dL 05/19/19 05/19/19 Range/Units 07:14 08:33 Sodium 136 L (137-145) mmol/L Chloride 95 L (98-107) mmol/L Carbon Dioxide 32 H (22-30) mmol/L BUN 34 H (7-17) mg/dL Glucose 305 H (74-99) mg/dL POC Glucose (mg/dL) 254 H (75-99) mg/dL Assessment and Plan Assessment: Assessment: #1. Acute exacerbation of moderate persistent chronic bronchial asthma, chest x-ray showed basilar atelectasis, with tiny pleural effusions, and pulmonary arterial hypertension. Triggers include change in weather, pollen, dust and ragweed #2. Recent sinus infection, and patient was treated with outpatient course of oral antibiotics completed on May 05 #3. Steroid-induced hyperglycemia #4. Diabetes mellitus type 2 #5. Hypertension #6. Hyperlipidemia #7. Morbid obesity #8. Mass on the left kidney without hydronephrosis. Equivocal for neoplasm. Being followed by urology. Plan: The patient was seen and evaluated by Dr. Wilkinson. We will increase her IV Solu- Medrol. Continue to monitor blood glucose levels. She remains on DuoNeb inhalations, Pulmicort and Perforomist inhalations. Increase her activity as tolerated. Continue to work with the incentive spirometer. We'll continue to follow and make further recommendations based on her clinical status. I, the cosigning physician, performed a history & physical examination of the patient. Lungs sounds with bilateral end expiratory wheeze. Maintaining good O2 saturations in the 90s on 2 L/m per nasal cannula. I discussed the assessment and plan of care with my nurse practitioner, Ela Bermeo. I attest to the above note as dictated by her.
[2019-05-19] MEDS: hydrALAZINE HCL 20 MG/ML 1 ML VIAL IVP PRN (12:14)
[2019-05-19] MEDS: INSULIN DETEMIR (LEVEMIR) 100 UNIT/ML SYR SQ SCH (12:15)
[2019-05-19 13:33] LABS: Glucose,Whole Blood 230 mg/dL (75-99)
[2019-05-19] MEDS: cloNIDine HCL 0.1 MG TAB PO SCH ×2 (15:27→21:22)
[2019-05-19] MEDS: methylPREDNISolone SOD SUCCI 125 MG/2 ML VIAL IV SCH (15:28)
[2019-05-19 17:05] LABS: Glucose,Whole Blood 216 mg/dL (75-99)
[2019-05-19 20:03] LABS: Glucose,Whole Blood 298 mg/dL (75-99)
[2019-05-19] MEDS: EZETIMIBE 10 MG TAB PO SCH (20:26)
[2019-05-19] MEDS ORDERED: INSULIN ASPART (NovoLOG) 100 UNIT/ML VIAL SQ ONE (20:58)
[2019-05-20] MEDS: methylPREDNISolone SOD SUCCI 125 MG/2 ML VIAL IV SCH ×2 (00:05→08:57)
[2019-05-20 06:53] LABS: Glucose,Whole Blood 267 mg/dL (75-99)
[2019-05-20] MEDS: IPRATROPIUM-ALBUTEROL 3 ML NEB INHALATION SCH ×4 (07:14→19:07)
[2019-05-20] MEDS: FORMOTEROL FUMARATE 20 MCG/2 ML NEBU INHALATION SCH ×2 (07:14→19:20)
[2019-05-20] MEDS: BUDESONIDE 1 MG/2 ML NEBU INHALATION SCH ×2 (07:14→19:07)
[2019-05-20] MEDS: FAMOTIDINE 20 MG TAB PO SCH (08:56)
[2019-05-20] MEDS: LORATADINE 10 MG TAB PO SCH (08:56)
[2019-05-20] MEDS: DOCUSATE 100 MG CAP PO SCH ×2 (08:56→21:48)
[2019-05-20] MEDS: FUROSEMIDE 20 MG TAB PO SCH (08:56)
[2019-05-20] MEDS: METOPROLOL SUCCINATE (ER) 25 MG TAB.ER.24H PO SCH (08:56)
[2019-05-20] MEDS: amLODIPine 5 MG TAB PO SCH (08:56)
[2019-05-20] MEDS: CLOPIDOGREL 75 MG TAB PO SCH (08:56)
[2019-05-20] MEDS: cloNIDine HCL 0.1 MG TAB PO SCH ×3 (08:56→21:48)
[2019-05-20] MEDS: GABAPENTIN 300 MG CAP PO SCH ×3 (08:56→21:48)
[2019-05-20] MEDS: MAGNESIUM OXIDE 400 MG TAB PO SCH (08:57)
[2019-05-20] MEDS: LISINOPRIL 20 MG TAB PO SCH (08:57)
[2019-05-20] MEDS: CHOLECALCIFEROL 1,000 UNIT TAB PO SCH (08:57)
[2019-05-20] MEDS: INSULIN DETEMIR (LEVEMIR) 100 UNIT/ML SYR SQ SCH (08:57)
[2019-05-20] MEDS: glipiZIDE 5 MG TAB PO SCH (08:58)
[2019-05-20] MEDS: INSULIN ASPART (NovoLOG) 100 UNIT/ML VIAL SQ SCH ×4 (08:58→22:27)
[2019-05-20] MEDS: POLYETHYLENE GLYCOL 3350 17 GM POWD.PACK PO SCH (08:58)
[2019-05-20] MEDS: ENOXAPARIN 40 MG/0.4 ML SYRINGE SQ SCH (08:58)
[2019-05-20] MEDS: AZITHROMYCIN 500 MG TAB PO SCH (09:00)
[2019-05-20] MEDS: FLUTICASONE 50MCG/SPRAY NASAL 16GM EA NOSTRIL SCH (09:01)
[2019-05-20] MEDS: HYDROCHLOROTHIAZIDE 25 MG TAB PO SCH (09:01)
[2019-05-20 09:12] LABS: Basophils % (A) 0 %; Eosinophils # (A) 0.1 k/uL (0-0.7); Eosinophils % (A) 1 %; HCT 37.9 % (34.0-46.0); HGB 11.9 gm/dL (11.4-16.0); Hypochromasia Slight; Lymphocytes # (A) 1.1 k/uL (1.0-4.8); Lymphocytes % (A) 16 %; MCH 27.7 pg (25.0-35.0); MCHC 31.4 g/dL (31.0-37.0); MCV 88.3 fL (80.0-100.0); Mean Platelet Volume 8.8; Monocytes # (A) 0.3 k/uL (0-1.0); Monocytes % (A) 5 %; Neutrophils # (A) 5.4 k/uL (1.3-7.7); Neutrophils % (A) 77 %; Platelet Count 257 k/uL (150-450); RBC 4.29 m/uL (3.80-5.40); RDW 13.5 % (11.5-15.5); WBC 7.1 k/uL (3.8-10.6)
[2019-05-20 09:29] LABS: Albumin 3.7 g/dL (3.5-5.0); Calcium 9.3 mg/dL (8.4-10.2); Potassium 4.5 mmol/L (3.5-5.1); Total Bilirubin 0.4 mg/dL (0.2-1.3); Total Protein 6.8 g/dL (6.3-8.2)
[2019-05-20 11:33] VITALS: BMI 43.4
[2019-05-20 11:40] LABS: Glucose,Whole Blood 262 mg/dL (75-99)
--- NOTE | 2019-05-20 11:44 | P.PN ---
Subjective Progress Note Date: 05/20/19 Nancy Celestin is a 73-year-old female who presented to [facility] emergency Department with chief complaint of shortness of breath. Patient states it started 2 days ago with a runny nose and congestion. Patient started having shortness of breath which worsened over the last 2 days she had occasional cough patient has a known history of asthma, she tried to take nebulizer treatment at home with minimal improvement she decided to come to emergency room, she was evaluated in emergency room that and had evidence of pneumonia she was started on IV antibiotic and was admitted to medical floor pulmonary consultation was requested. On 05/15/2019 patient was seen and examined on the medical floor she is alert and oriented 3 in no apparent distress there is no fever or chills no headache or dizziness no chest pain no shortness of breath she is still complaining of nasal congestion and cough with yellow-green sputum production there is no nausea or vomiting no abdominal pain no diarrhea and no urinary symptoms 05/16/2019 patient reports that her breathing is doing better. She still having some wheezing when walking back from the bathroom. Blood pressures elevated at 176/81 she's receiving IV hydralazine. Patient was started on Norvasc during this admission. Also will add hydrochlorothiazide 25 mg daily. Patient denies any chest pain, nausea or vomiting, or urinary symptoms. 05/17/2019 patient complaining of wheezing throughout the night. She required extra breathing treatment. Hydrochlorothiazide was added yesterday. Awaiting repeat blood pressure after medications given this morning. Blood pressure. This morning was 194/82. Patient is complaining of watery eyes and nasal congestion. Flonase started yesterday. Also will start Claritin. She is complaining of constipation is been about 3-4 days since last bowel movement. Colace and MiraLAX ordered. She refused lactulose at this time. She denies any chest pain or nausea and vomiting. On 05/18/2019 patient is alert and oriented 3. Patient reports some improvement with her shortness of breath but still having significant wheezing. Blood pressure slightly improved yesterday after addition of hydrochlorothiazide will continue to monitor. Patient remains on IV Solu-Medrol. This time patient denies chest pain. Patient denies any nausea vomiting or diarrhea. Patient denies any urinary burning or frequency. 05/19/2019 patient is still wheezing. She is not complaining of shortness of b reath. Still remaining on IV steroids. Discussed with pulmonary nurse practitioner. Patient's blood sugars are elevated due to the steroids. She is requiring extra insulin. We'll add Lantus 10 units daily. She's had blood sugars in the 300s. Last blood sugar 254. Patient seen by urology regarding questionable renal mass. They're recommending a computed tomography scan of the abdomen with and without IV contrast in a couple of days due to her recent computed tomography scan of the chest. Patient's blood pressures are still elevated this morning 164/73. Awaiting repeat blood pressure after medications given. Patient denies any chest pain. Reports having bowel movements. Denies any difficulty urinating. 05/20/2019 patient is feeling better today. Pulmonary service had increased the Solu-Medrol to 60 IV every 8 hours. Patient is still wheezing, especially after activity. She was able to ambulate in the hallway. Pulmonary has cleared her for discharge. Patient does not feel quite ready for discharge. Discussed with pulmonary service and will be adding Singulair to her medication regimen. Patient also complaining of constipation we'll give lactulose. Awaiting 2-D e cho results. Blood pressure 155/71 this morning. Blood sugar 267 she was received extra insulin. Patient denies any chest pain. Denies any nausea vomiting or abdominal pain. Denies any burning with urination. Objective - Vital Signs Vital signs: Vital Signs Temp 97.6 F 05/20/19 04:44 Pulse 76 05/20/19 11:04 Resp 18 05/20/19 04:44 BP 155/71 05/20/19 04:44 Pulse Ox 96 05/20/19 04:44 Intake & Output 05/19/19 05/20/19 05/20/19 18:59 06:59 18:59 Intake Total 600 Balance 600 Weight 129.727 kg Intake: Oral 600 Other: Voiding Method Toilet Toilet # Voids 4 2 - Exam Head normocephalic Neck supple Lungs expiratory wheezing noted bilaterally but improving air movement Heart regular rate and rhythm S1-S2, no rub or gallop Abdomen is soft nontender nondistended positive bowel sounds no hepatosplenomegaly Extremities swelling noted bilateral lower extremities Neuro alert and orientated to 3 - Labs CBC & Chem 7: 05/20/19 08:36 05/20/19 08:36 Labs: Abnormal Lab Results - Last 24 Hours (Table) 05/19/19 05/19/19 05/19/19 Range/Units 13:28 17:02 20:02 Sodium (137-145) mmol/L Chloride (98-107) mmol/L Carbon Dioxide (22-30) mmol/L BUN (7-17) mg/dL Glucose (74-99) mg/dL POC Glucose (mg/dL) 230 H 216 H 298 H (75-99) mg/dL 05/20/19 05/20/19 Range/Units 06:50 08:36 Sodium 135 L (137-145) mmol/L Chloride 92 L (98-107) mmol/L Carbon Dioxide 33 H (22-30) mmol/L BUN 42 H (7-17) mg/dL Glucose 368 H (74-99) mg/dL POC Glucose (mg/dL) 267 H (75-99) mg/dL Assessment and Plan Assessment: #1 possible pneumonia chest x-rays showing perihilar infiltrate and bilateral basilar infiltrate she was started on IV Rocephin and po Zithromax in the emergency room. She is currently on oral azithromycin. Sputum culture normal respiratory alexsandra. Pulmonary following. Pro-calcitonin level normal at 0.05. Discussed with pulmonary service. They're recommending a repeat sputum culture. #2 acute exacerbation of moderate persistent chronic bronchial asthma continue DuoNeb updrafts, IV steroids Pulmicort and Perforomist. Pulmonary service is following closely. Discussed pulmonary service will decrease steroids from 60 mg IV every 8 to40 mg IV every 12 hours. We'll add Singulair due to an ALLERGY component of her asthma. #3 underlying history of hypertension #4 underlying history of diabetes mellitus type 2. Elevated blood sugars secondary to steroids. Hemoglobin A1c 7.7. Uncontrolled blood sugars secondary to steroids will be adding Lantus 10 units daily. Discontinue metformin since patient is currently not need another computed tomography scan requiring contrast #5 underlying history of hyperlipidemia #6 essential hypertension: Patient's blood pressures are better controlled t shay. Clonidine was added yesterday. Also note Norvasc and hydrochlorothiazide added during this admission. Continue the IV hydralazine as needed #7 recent sinus infection and patient still having some sinus congestion will resume her Flonase nasal spray. Add Claritin #8 morbid obesity 9. Constipation improving with Colace and MiraLAX 10. CT chest shows Bibasilar areas of atelectasis or scarring 1.1 cm nodular density in the inferior lingula could represent a nodular area of atelectasis or scarring 3 month follow-up CT recommended to reassess. Pulmonary arterial hypertension and CAD. Pulmonary is following. Order incentive spirometry for atelectasis. 11. 1.7 cm enhancing lesion in the midleft kidney. Renal ultrasound completed showing lobular contour left kidney corresponding to the question mass in prior CT chest dated 05/16/2019 this is equivocal for neoplasm and three-phase abdominal CT or MRI are recommended for for characterization to evaluate for enhancement characteristics. Patient seen by urology. They are recommending a CT scan of the abdomen with and without IV contrast in a few days since patient had a recent computed tomography scan of the chest with contrast. At this time metformin has been discontinued. 12. Constipation: We'll give lactulose. Continue Colace and MiraLAX Physical therapy recommending home care at discharge Plan Add Singulair and discontinue Claritin Decrease IV steroids Lactulose for constipation Echo pending GI prophylaxis Pepcid and DVT prophylaxis Lovenox I performed an examination of the patient and discussed their management with the physician Preventive Medicine Physician. I have reviewed the Physician Preventive Medicine Physician's notes and agree with the documented findings and plan of care
[2019-05-20] MEDS ORDERED: LACTULOSE 20 GM/30 ML CUP PO ONE (11:45)
--- NOTE | 2019-05-20 11:51 | P.PN ---
Subjective Progress Note Date: 05/20/19 Principal diagnosis: Acute exacerbation of moderate persistent chronic bronchial asthma This is 73-year-old female patient of Dr. Shelby, with past medical history of moderately persistent bronchial asthma, who was recently treated for a sinus infection with a course of antibiotics, and patient finished it on May 05. She stated her symptoms did improve after that, however on she was out with her friend, and she started getting watery eyes, increased nasal drainage which was clear, increased sinus congestion. She returned home her chest was feeling tight, she was having difficulty breathing. She took her nebulized bronchodilator, and her symptoms became worse, and she came into the hospital on 05/14/2019 to the emergency department. Patient states her symptoms usually are well-controlled other than during the weather change, with high humidity and hot weather. Patient also has ALLERGIES to pollen, dust and ragweed. Chest x- ray was obtained showing basilar atelectasis or infiltrates with tiny effusions, patchy perihilar changes with interstitial pneumonitis or venous congestion. She denied fever or chills, no nausea vomiting or diarrhea. Labs did not show any leukocytosis, white blood cell count is 4.9, hemoglobin is 11.4, INR 0.9, serum sodium is 140, potassium is 3.4, chloride was 101, CO2 is 31, BUN is 14, creatinine 0.70, troponin was negative 1, proBNP was 492, influenza screen was negative. Patient was started on nebulized bronchodilators, she was given a dose of IV Solu-Medrol 125 mg in the emergency department, empiric antibiotics in the form of Zithromax and Rocephin, and was admitted for further management. Other medical history includes diabetes mellitus, hypertension, hyperlipidemia, CVA/TIA, rheumatoid arthritis, and patient is under the care of Dr. Potter, on [facility] for maintenance. On 05/16/2019 patient seen in follow-up on medical surgical floor. She is moving better air today, sounds more wheezing and bronchospastic, with better air entry at lower bases of the lungs. She states she is breathing easier, although not back to normal, room air pulse ox is 97%, she is afebrile, hemodynamically patient is stable, as a positive for diffuse wheezes bilaterally, patient is on IV steroids at 40 mg every 12 hours, she is on Pulmicort and Perforomist, nebulized bronchodilators, Zithromax and Rocephin, urine culture has been sent, preliminary Gram stain showed few gram-positive cocci and peers in chains few gram-negative bacilli, final cultures pending. The patient is seen today 05/17/2019 in follow-up on the regular medical floor. She is currently sitting up in bed. Awake and alert in no acute distress. Breathing easier today as compared to yesterday. Still somewhat bronchospastic and wheezy mostly with exertion. O2 saturations in the high 90s on 2 L/m per nasal cannula. She's afebrile. Slightly hypertensive. Sputum culture reveals no growth. White count 6.0. Hemoglobin 11.1. Creatinine 0.73. Sputum culture reveals no growth. Remains on DuoNeb inhalations, Pulmicort and Perforomist inhalations, IV Solu-Medrol. Computed tomography scan of the chest reveals prominent strandy bibasilar atelectasis/scarring. There is a 1.1 cm nodular density in the inferior lingula could represent atelectasis/scar. A 1.7 cm lesion of the left kidney. The patient is seen today 05/18/2019 in follow-up on the regular medical floor. She is awake and alert in no acute distress. Resting comfortably in bed. She is improved today as compared to yesterday. Still not quite back to her base line. Still with some wheezing. Still with some dyspnea on exertion. Maintaining good O2 saturations in the upper 90s on 2 L/m per nasal cannula. She's afebrile. Sputum culture reveals no growth. White count 6.2. Hemoglobin 11.2. Creatinine 0.74. The patient is seen today 05/19/2019 in follow-up on the regular medical floor. She is ambulating in the room up to the bathroom. She is still wheezing and short of breath with minimal exertion. Maintaining good O2 saturations in the high 90s on 2 L/m per nasal cannula. She's afebrile. Sputum culture reveals no growth. White count 6.4. Hemoglobin 11.5. Creatinine 0.68. The patient was seen today 05/20/2019 in follow-up on the regular medical floor. She is better today as compared to yesterday. Less bronchospastic and wheezing. Up ambulating in the room. Maintaining good O2 saturations in the mid 90s on room air. She's been afebrile. Sputum culture reveals no growth. White count 7.1. Hemoglobin 11.9. Creatinine 0.83. She remains on DuoNeb inhalations, Pulmicort and Perforomist inhalations, IV Solu-Medrol, Singulair. Antibiotics in the form of azithromycin. Objective - Vital Signs Vital signs: Vital Signs Temp 97.6 F 05/20/19 04:44 Pulse 76 05/20/19 11:04 Resp 18 05/20/19 04:44 BP 155/71 05/20/19 04:44 Pulse Ox 96 05/20/19 04:44 Intake & Output 05/19/19 05/20/19 05/20/19 18:59 06:59 18:59 Intake Total 600 Balance 600 Weight 129.727 kg Intake: Oral 600 Other: Voiding Method Toilet Toilet # Voids 4 2 - Exam GENERAL EXAM: Pleasant 73-year-old obese female patient. Comfortable in no apparent distress. On room air. HEAD: Normocephalic. EYES: Normal reaction of pupils, equal size. NOSE: Clear with pink turbinates. THROAT: Crowding of posterior pharynx. No erythema or exudates. NECK: No masses, no JVD. CHEST: No chest wall deformity. LUNGS: Equal air entry with bilateral end expiratory wheeze, diminished. CVS: S1 and S2 normal with no audible murmur, regular rhythm. ABDOMEN: No hepatosplenomegaly, normal bowel sounds, no guarding or rigidity. SPINE: No scoliosis or deformity SKIN: No rashes CENTRAL NERVOUS SYSTEM: No focal deficits, tone is normal in all 4 extremities. EXTREMITIES: There is trace peripheral edema. No clubbing, no cyanosis. Peripheral pulses are intact. - Labs CBC & Chem 7: 05/20/19 08:36 05/20/19 08:36 Labs: Abnormal Lab Results - Last 24 Hours (Table) 05/19/19 05/19/19 05/19/19 Range/Units 13:28 17:02 20:02 Sodium (137-145) mmol/L Chloride (98-107) mmol/L Carbon Dioxide (22-30) mmol/L BUN (7-17) mg/dL Glucose (74-99) mg/dL POC Glucose (mg/dL) 230 H 216 H 298 H (75-99) mg/dL 05/20/19 05/20/19 05/20/19 Range/Units 06:50 08:36 11:28 Sodium 135 L (137-145) mmol/L Chloride 92 L (98-107) mmol/L Carbon Dioxide 33 H (22-30) mmol/L BUN 42 H (7-17) mg/dL Glucose 368 H (74-99) mg/dL POC Glucose (mg/dL) 267 H 262 H (75-99) mg/dL Assessment and Plan Assessment: Assessment: #1. Acute exacerbation of moderate persistent chronic bronchial asthma, chest x-ray showed basilar atelectasis, with tiny pleural effusions, and pulmonary arterial hypertension. Triggers include change in weather, pollen, dust and ragweed #2. Recent sinus infection, and patient was treated with outpatient course of oral antibiotics completed on May 05 #3. Steroid-induced hyperglycemia #4. Diabetes mellitus type 2 #5. Hypertension #6. Hyperlipidemia #7. Morbid obesity #8. Mass on the left kidney without hydronephrosis. Equivocal for neoplasm. Being followed by urology. Plan: The patient was seen and evaluated by Dr. Wilkinson. She is improved today compared to yesterday. Titrate down the steroids. Continue to monitor blood glucose. She remains on DuoNeb inhalations, Pulmicort and Perforomist inhalations. Increase her activity as tolerated. Continue to work with the incentive spirometer. Probable discharge in the a.m. We'll continue to follow and make further recommendations based on her clinical status. I, the cosigning physician, performed a history & physical examination of the patient. Lungs sounds with bilateral end expiratory wheeze. Maintaining good O2 saturations in the 90s on room air. I discussed the assessment and plan of care with my nurse practitioner, Ela Bermeo. I attest to the above note as dictated by her.
[2019-05-20] MEDS: NON-FORMULARY DRUG (Ubidecarenone [Co Q-10] 100 MG) PO SCH (14:56)
[2019-05-20 17:15] LABS: Glucose,Whole Blood 270 mg/dL (75-99)
[2019-05-20] MEDS: methylPREDNISolone SOD SUCCI 40 MG/ML 1 ML VIAL IV SCH ×2 (18:06→23:51)
[2019-05-20] MEDS ORDERED: methylPREDNISolone SOD SUCCI 40 MG/ML 1 ML VIAL IV SCH (21:00)
[2019-05-20 21:14] LABS: Glucose,Whole Blood 336 mg/dL (75-99)
[2019-05-20] MEDS: MONTELUKAST 10 MG TAB PO SCH (21:48)
[2019-05-20] MEDS: EZETIMIBE 10 MG TAB PO SCH (22:29)
[2019-05-21 06:59] LABS: Glucose,Whole Blood 307 mg/dL (75-99)
[2019-05-21] MEDS: INSULIN DETEMIR (LEVEMIR) 100 UNIT/ML SYR SQ SCH (08:13)
[2019-05-21] MEDS: INSULIN ASPART (NovoLOG) 100 UNIT/ML VIAL SQ SCH ×4 (08:14→21:27)
[2019-05-21] MEDS: BUDESONIDE 1 MG/2 ML NEBU INHALATION SCH ×2 (08:33→20:20)
[2019-05-21] MEDS: IPRATROPIUM-ALBUTEROL 3 ML NEB INHALATION SCH ×4 (08:33→20:21)
[2019-05-21] MEDS: FORMOTEROL FUMARATE 20 MCG/2 ML NEBU INHALATION SCH ×3 (08:33→20:21)
[2019-05-21 08:35] LABS: Calcium 9.5 mg/dL (8.4-10.2); Potassium 4.5 mmol/L (3.5-5.1)
--- NOTE | 2019-05-21 08:47 | P.PN ---
Subjective Progress Note Date: 05/21/19 Principal diagnosis: Acute exacerbation of moderate persistent chronic bronchial asthma This is 73-year-old female patient of Dr. Shelby, with past medical history of moderately persistent bronchial asthma, who was recently treated for a sinus infection with a course of antibiotics, and patient finished it on May 05. She stated her symptoms did improve after that, however on she was out with her friend, and she started getting watery eyes, increased nasal drainage which was clear, increased sinus congestion. She returned home her chest was feeling tight, she was having difficulty breathing. She took her nebulized bronchodilator, and her symptoms became worse, and she came into the hospital on 05/14/2019 to the emergency department. Patient states her symptoms usually are well-controlled other than during the weather change, with high humidity and hot weather. Patient also has ALLERGIES to pollen, dust and ragweed. Chest x- ray was obtained showing basilar atelectasis or infiltrates with tiny effusions, patchy perihilar changes with interstitial pneumonitis or venous congestion. She denied fever or chills, no nausea vomiting or diarrhea. Labs did not show any leukocytosis, white blood cell count is 4.9, hemoglobin is 11.4, INR 0.9, serum sodium is 140, potassium is 3.4, chloride was 101, CO2 is 31, BUN is 14, creatinine 0.70, troponin was negative 1, proBNP was 492, influenza screen was negative. Patient was started on nebulized bronchodilators, she was given a dose of IV Solu-Medrol 125 mg in the emergency department, empiric antibiotics in the form of Zithromax and Rocephin, and was admitted for further management. Other medical history includes diabetes mellitus, hypertension, hyperlipidemia, CVA/TIA, rheumatoid arthritis, and patient is under the care of Dr. Potter, on [facility] for maintenance. On 05/16/2019 patient seen in follow-up on medical surgical floor. She is moving better air today, sounds more wheezing and bronchospastic, with better air entry at lower bases of the lungs. She states she is breathing easier, although not back to normal, room air pulse ox is 97%, she is afebrile, hemodynamically patient is stable, as a positive for diffuse wheezes bilaterally, patient is on IV steroids at 40 mg every 12 hours, she is on Pulmicort and Perforomist, nebulized bronchodilators, Zithromax and Rocephin, urine culture has been sent, preliminary Gram stain showed few gram-positive cocci and peers in chains few gram-negative bacilli, final cultures pending. The patient is seen today 05/17/2019 in follow-up on the regular medical floor. She is currently sitting up in bed. Awake and alert in no acute distress. Breathing easier today as compared to yesterday. Still somewhat bronchospastic and wheezy mostly with exertion. O2 saturations in the high 90s on 2 L/m per nasal cannula. She's afebrile. Slightly hypertensive. Sputum culture reveals no growth. White count 6.0. Hemoglobin 11.1. Creatinine 0.73. Sputum culture reveals no growth. Remains on DuoNeb inhalations, Pulmicort and Perforomist inhalations, IV Solu-Medrol. Computed tomography scan of the chest reveals prominent strandy bibasilar atelectasis/scarring. There is a 1.1 cm nodular density in the inferior lingula could represent atelectasis/scar. A 1.7 cm lesion of the left kidney. The patient is seen today 05/18/2019 in follow-up on the regular medical floor. She is awake and alert in no acute distress. Resting comfortably in bed. She is improved today as compared to yesterday. Still not quite back to her base line. Still with some wheezing. Still with some dyspnea on exertion. Maintaining good O2 saturations in the upper 90s on 2 L/m per nasal cannula. She's afebrile. Sputum culture reveals no growth. White count 6.2. Hemoglobin 11.2. Creatinine 0.74. The patient is seen today 05/19/2019 in follow-up on the regular medical floor. She is ambulating in the room up to the bathroom. She is still wheezing and short of breath with minimal exertion. Maintaining good O2 saturations in the high 90s on 2 L/m per nasal cannula. She's afebrile. Sputum culture reveals no growth. White count 6.4. Hemoglobin 11.5. Creatinine 0.68. The patient was seen today 05/20/2019 in follow-up on the regular medical floor. She is better today as compared to yesterday. Less bronchospastic and wheezing. Up ambulating in the room. Maintaining good O2 saturations in the mid 90s on room air. She's been afebrile. Sputum culture reveals no growth. White count 7.1. Hemoglobin 11.9. Creatinine 0.83. She remains on DuoNeb inhalations, Pulmicort and Perforomist inhalations, IV Solu-Medrol, Singulair. Antibiotics in the form of azithromycin. The patient is seen today 05/21/2019 in follow-up on the regular medical floor. She is currently sitting up in bed. Awake and alert in no acute distress. She states her breathing is now back to its baseline. No wheezing. No dyspnea on exertion. No cough or congestion currently. She is maintaining good O2 saturations in the 90s on room air. She's been afebrile. Hemodynamically stable. Sodium 136. Creatinine 0.97. Objective - Vital Signs Vital signs: Vital Signs Temp 97.8 F 05/21/19 04:44 Pulse 72 05/21/19 04:44 Resp 18 05/21/19 04:44 BP 123/71 05/21/19 04:44 Pulse Ox 96 05/21/19 04:44 Intake & Output 05/20/19 05/21/19 05/21/19 18:59 06:59 18:59 Intake Total 1440 Balance 1440 Weight 129.727 kg Intake: Oral 1440 Other: Voiding Method Toilet Toilet # Voids 3 3 - Exam GENERAL EXAM: Pleasant 73-year-old obese female patient. Comfortable in no apparent distress. On room air O2 saturation 96%. HEAD: Normocephalic. EYES: Normal reaction of pupils, equal size. NOSE: Clear with pink turbinates. THROAT: Crowding of posterior pharynx. No erythema or exudates. NECK: No masses, no JVD. CHEST: No chest wall deformity. LUNGS: Equal air entry with clear lung sounds diminished. CVS: S1 and S2 normal with no audible murmur, regular rhythm. ABDOMEN: No hepatosplenomegaly, normal bowel sounds, no guarding or rigidity. SPINE: No scoliosis or deformity SKIN: No rashes CENTRAL NERVOUS SYSTEM: No focal deficits, tone is normal in all 4 extremities. EXTREMITIES: There is trace peripheral edema. No clubbing, no cyanosis. Peripheral pulses are intact. - Labs CBC & Chem 7: 05/20/19 08:36 05/21/19 07:33 Labs: Abnormal Lab Results - Last 24 Hours (Table) 05/20/19 05/20/19 05/20/19 Range/Units 08:36 11:28 17:12 Sodium 135 L (137-145) mmol/L Chloride 92 L (98-107) mmol/L Carbon Dioxide 33 H (22-30) mmol/L BUN 42 H (7-17) mg/dL Glucose 368 H (74-99) mg/dL POC Glucose (mg/dL) 262 H 270 H (75-99) mg/dL 05/20/19 05/21/19 05/21/19 Range/Units 21:13 06:57 07:33 Sodium 136 L (137-145) mmol/L Chloride 93 L (98-107) mmol/L Carbon Dioxide 34 H (22-30) mmol/L BUN 47 H (7-17) mg/dL Glucose 277 H (74-99) mg/dL POC Glucose (mg/dL) 336 H 307 H (75-99) mg/dL Assessment and Plan Assessment: Assessment: #1. Acute hypoxic respiratory failure secondary to an acute exacerbation of moderate persistent chronic bronchial asthma, chest x-ray showed basilar atelectasis, with tiny pleural effusions, and pulmonary arterial hypertension. Triggers include change in weather, pollen, dust and ragweed and recovered. #2. Recent sinus infection, and patient was treated with outpatient course of oral antibiotics completed on May 05 #3. Steroid-induced hyperglycemia #4. Diabetes mellitus type 2 #5. Hypertension #6. Hyperlipidemia #7. Morbid obesity #8. Mass on the left kidney without hydronephrosis. Equivocal for neoplasm. Being followed by urology. Plan: The patient was seen and evaluated by Dr. Wilkinson. She is back to her baseline from the pulmonary standpoint. She is cleared for discharge. She would benefit from a follow-up in our office where we can perform full pulmonary function testing to evaluate the severity of her asthma and make further recommendations regarding maintenance medications. She would benefit from Symbicort, DuoNeb inhalations, Singulair, complete a prednisone taper starting at 40 mg daily for 4 days. She is encouraged to call sooner with any recurrence of symptoms or other questions or concerns. I, the cosigning physician, performed a history & physical examination of the patient. Lungs sounds clear. Maintaining good O2 saturations in the 90s on room air. I discussed the assessment and plan of care with my nurse practitioner, Ela Bermeo. I attest to the above note as dictated by her.
--- NOTE | 2019-05-21 09:50 | CT ---
EXAMINATION TYPE: CT abdomen pelvis w con DATE OF EXAM: 05/21/2019 HISTORY: Abnormal prior imaging, renal lesion Automated Exposure Control for Dose Reduction was Utilized. CONTRAST: CT scan of the abdomen and pelvis is performed with IV Contrast, patient injected with 100 mL of Isov ue 300. COMPARISON: Renal ultrasound May 17, 2019. CT chest May 16, 2019 FINDINGS: LUNG BASES: No significant abnormality is appreciated. LIVER/GB: Dependent rim calcified 1.6 cm gallstone. PANCREAS: No significant abnormality is seen. SPLEEN: No significant abnormality is seen. ADRENALS: No significant abnormality is seen. KIDNEYS: Symmetric cortical medullary uptake and excretion without hydronephrosis bilaterally. No con cerning solid or cystic masses are seen with particular attention to the mid pole of the left kidney at area of CT concern. BOWEL: Fecal filled prominence right colon extending into transverse colon. Overall no suspicious sma ll or large bowel dilatation. UTERUS/ADNEXA: Heterogeneous anteverted partially calcified uterus extends to the right of midline. C alcified fibroids are felt present. Uterus is prominent for patient's age which correlates to fibroid uterus. LYMPH NODES: No greater than 1cm abdominal or pelvic lymph nodes are appreciated. OSSEOUS STRUCTURES: No significant abnormality is seen. OTHER: No significant additional abnormality is seen. IMPRESSION: 1. No suspicious solid or cystic renal mass. 2. Moderate proximal colonic fecal stasis. No bowel obstruction. 3. Calcified fibroid uterus.
[2019-05-21] MEDS: amLODIPine 5 MG TAB PO SCH (10:10)
[2019-05-21] MEDS: MAGNESIUM OXIDE 400 MG TAB PO SCH (10:10)
[2019-05-21] MEDS: LISINOPRIL 20 MG TAB PO SCH (10:10)
[2019-05-21] MEDS: DOCUSATE 100 MG CAP PO SCH ×2 (10:10→21:26)
[2019-05-21] MEDS: cloNIDine HCL 0.1 MG TAB PO SCH ×3 (10:10→21:26)
[2019-05-21] MEDS: AZITHROMYCIN 500 MG TAB PO SCH (10:10)
[2019-05-21] MEDS: ENOXAPARIN 40 MG/0.4 ML SYRINGE SQ SCH (10:10)
[2019-05-21] MEDS: METOPROLOL SUCCINATE (ER) 25 MG TAB.ER.24H PO SCH (10:10)
[2019-05-21] MEDS: CLOPIDOGREL 75 MG TAB PO SCH (10:10)
[2019-05-21] MEDS: CHOLECALCIFEROL 1,000 UNIT TAB PO SCH (10:11)
[2019-05-21] MEDS: POLYETHYLENE GLYCOL 3350 17 GM POWD.PACK PO SCH (10:11)
[2019-05-21] MEDS: FAMOTIDINE 20 MG TAB PO SCH (10:11)
[2019-05-21] MEDS: predniSONE 20 MG TAB PO SCH (10:11)
[2019-05-21] MEDS: GABAPENTIN 300 MG CAP PO SCH ×3 (10:11→21:26)
[2019-05-21] MEDS: HYDROCHLOROTHIAZIDE 25 MG TAB PO SCH (10:17)
[2019-05-21] MEDS: glipiZIDE 5 MG TAB PO SCH (10:17)
[2019-05-21] MEDS: methylPREDNISolone SOD SUCCI 40 MG/ML 1 ML VIAL IV SCH (10:25)
[2019-05-21] MEDS: FLUTICASONE 50MCG/SPRAY NASAL 16GM EA NOSTRIL SCH (10:26)
[2019-05-21 11:34] LABS: Glucose,Whole Blood 299 mg/dL (75-99)
--- NOTE | 2019-05-21 12:16 | P.PN ---
Subjective Progress Note Date: 05/21/19 Nancy Celestin is a 73-year-old female who presented to [facility] emergency Department with chief complaint of shortness of breath. Patient states it started 2 days ago with a runny nose and congestion. Patient started having shortness of breath which worsened over the last 2 days she had occasional cough patient has a known history of asthma, she tried to take nebulizer treatment at home with minimal improvement she decided to come to emergency room, she was evaluated in emergency room that and had evidence of pneumonia she was started on IV antibiotic and was admitted to medical floor pulmonary consultation was requested. On 05/15/2019 patient was seen and examined on the medical floor she is alert and oriented 3 in no apparent distress there is no fever or chills no headache or dizziness no chest pain no shortness of breath she is still complaining of nasal congestion and cough with yellow-green sputum production there is no nausea or vomiting no abdominal pain no diarrhea and no urinary symptoms 05/16/2019 patient reports that her breathing is doing better. She still having some wheezing when walking back from the bathroom. Blood pressures elevated at 176/81 she's receiving IV hydralazine. Patient was started on Norvasc during this admission. Also will add hydrochlorothiazide 25 mg daily. Patient denies any chest pain, nausea or vomiting, or urinary symptoms. 05/17/2019 patient complaining of wheezing throughout the night. She required extra breathing treatment. Hydrochlorothiazide was added yesterday. Awaiting repeat blood pressure after medications given this morning. Blood pressure. This morning was 194/82. Patient is complaining of watery eyes and nasal congestion. Flonase started yesterday. Also will start Claritin. She is complaining of constipation is been about 3-4 days since last bowel movement. Colace and MiraLAX ordered. She refused lactulose at this time. She denies any chest pain or nausea and vomiting. On 05/18/2019 patient is alert and oriented 3. Patient reports some improvement with her shortness of breath but still having significant wheezing. Blood pressure slightly improved yesterday after addition of hydrochlorothiazide will continue to monitor. Patient remains on IV Solu-Medrol. This time patient denies chest pain. Patient denies any nausea vomiting or diarrhea. Patient denies any urinary burning or frequency. On 05/19/2018 patient is alert and oriented 3. Patient still having some wh eezing. Patient does not feel quite ready to be DC'd home. Patient has been transitioned to oral prednisone. We'll continue to monitor blood sugars. Blood pressures have significantly improved. At this time patient denies chest pain or shortness breath. Patient denies nausea vomiting or diarrhea. Patient denies any urinary burning or frequency. Objective - Vital Signs Vital signs: Vital Signs Temp 97.8 F 05/21/19 04:44 Pulse 80 05/21/19 12:07 Resp 17 05/21/19 07:45 BP 123/71 05/21/19 04:44 Pulse Ox 96 05/21/19 04:44 Intake & Output 05/20/19 05/21/19 05/21/19 18:59 06:59 18:59 Intake Total 1440 Balance 1440 Weight 129.727 kg Intake: Oral 1440 Other: Voiding Method Toilet Toilet Toilet # Voids 3 3 - Exam Head normocephalic Neck supple Lungs expiratory wheezing noted bilaterally Heart regular rate and rhythm S1-S2, no rub or gallop Abdomen is soft nontender nondistended positive bowel sounds no hepatosplenomegaly Extremities swelling noted bilateral lower extremities Neuro alert and orientated to 3 - Labs CBC & Chem 7: 05/20/19 08:36 05/21/19 07:33 Labs: Abnormal Lab Results - Last 24 Hours (Table) 05/20/19 05/20/19 05/21/19 Range/Units 17:12 21:13 06:57 Sodium (137-145) mmol/L Chloride (98-107) mmol/L Carbon Dioxide (22-30) mmol/L BUN (7-17) mg/dL Glucose (74-99) mg/dL POC Glucose (mg/dL) 270 H 336 H 307 H (75-99) mg/dL 05/21/19 05/21/19 Range/Units 07:33 11:33 Sodium 136 L (137-145) mmol/L Chloride 93 L (98-107) mmol/L Carbon Dioxide 34 H (22-30) mmol/L BUN 47 H (7-17) mg/dL Glucose 277 H (74-99) mg/dL POC Glucose (mg/dL) 299 H (75-99) mg/dL Assessment and Plan Assessment: #1 possible pneumonia chest x-rays showing perihilar infiltrate and bilateral ba silar infiltrate she was started on IV Rocephin and po Zithromax in the emergency room. She is currently on oral azithromycin. Sputum culture normal respiratory alexsandra. Pulmonary following. Pro-calcitonin level normal at 0.05. Discussed with pulmonary service. They're recommending a repeat sputum culture. #2 acute exacerbation of moderate persistent chronic bronchial asthma continue DuoNeb updrafts, IV steroids Pulmicort and Perforomist. Pulmonary service is following closely. Discussed pulmonary service will decrease steroids from 60 mg IV every 8 to40 mg IV every 12 hours. We'll add Singulair due to an ALLERGY component of her asthma. #3 underlying history of hypertension #4 underlying history of diabetes mellitus type 2. Elevated blood sugars secondary to steroids. Hemoglobin A1c 7.7. Uncontrolled blood sugars secondary to steroids will be adding Lantus 10 units daily. Discontinue metformin since patient is currently not need another computed tomography scan requiring contrast #5 underlying history of hyperlipidemia #6 essential hypertension: Patient's blood pressures are better controlled today. Clonidine was added yesterday. Also note Norvasc and hydrochloro thiazide added during this admission. Continue the IV hydralazine as needed #7 recent sinus infection and patient still having some sinus congestion will resume her Flonase nasal spray. Add Claritin #8 morbid obesity 9. Constipation improving with Colace and MiraLAX 10. CT chest shows Bibasilar areas of atelectasis or scarring 1.1 cm nodular density in the inferior lingula could represent a nodular area of atelectasis or scarring 3 month follow-up CT recommended to reassess. Pulmonary arterial hypertension and CAD. Pulmonary is following. Order incentive spirometry for atelectasis. 11. 1.7 cm enhancing lesion in the midleft kidney. Renal ultrasound completed showing lobular contour left kidney corresponding to the question mass in prior CT chest dated 05/16/2019 this is equivocal for neoplasm and three-phase abdominal CT or MRI are recommended for for characterization to evaluate for enhancement characteristics. Patient seen by urology. They are recommending a CT scan of the abdomen with and without IV contrast in a few days since patient had a recent computed tomography scan of the chest with contrast. At this time metformin has been discontinued. CT of abdomen and pelvis completed showing no suspicious solid or cystic renal mass. Moderate proximal colonic fecal stasis. No bowel obstruction. Calcified fibroid uterus. 12. Constipation: We'll give lactulose. Continue Colace and MiraLAX Physical therapy recommending home care at discharge Plan Add Singulair and discontinue Claritin Decrease IV steroids Lactulose for constipation Echo pending GI prophylaxis Pepcid and DVT prophylaxis Lovenox I performed an examination of the patient and discussed their management with the Nurse Practitioner. I have reviewed the Nurse Practitioner's notes and agree with the documented findings and plan of care
[2019-05-21 17:12] LABS: Glucose,Whole Blood 308 mg/dL (75-99)
[2019-05-21 20:33] LABS: Glucose,Whole Blood 317 mg/dL (75-99)
[2019-05-21] MEDS: MONTELUKAST 10 MG TAB PO SCH (21:27)
[2019-05-21] MEDS: EZETIMIBE 10 MG TAB PO SCH (22:41)
[2019-05-22 06:58] LABS: Glucose,Whole Blood 166 mg/dL (75-99)
[2019-05-22] MEDS: FORMOTEROL FUMARATE 20 MCG/2 ML NEBU INHALATION SCH ×2 (08:11→19:08)
[2019-05-22] MEDS: IPRATROPIUM-ALBUTEROL 3 ML NEB INHALATION SCH ×4 (08:11→19:07)
[2019-05-22] MEDS: BUDESONIDE 1 MG/2 ML NEBU INHALATION SCH ×2 (08:11→19:07)
[2019-05-22 08:14] LABS: Basophils % (A) 0 %; Eosinophils # (A) 0.1 k/uL (0-0.7); Eosinophils % (A) 1 %; HCT 39.1 % (34.0-46.0); HGB 12.7 gm/dL (11.4-16.0); Lymphocytes # (A) 2.5 k/uL (1.0-4.8); Lymphocytes % (A) 30 %; MCH 27.8 pg (25.0-35.0); MCHC 32.4 g/dL (31.0-37.0); MCV 85.6 fL (80.0-100.0); Mean Platelet Volume 10.5; Monocytes # (A) 0.5 k/uL (0-1.0); Monocytes % (A) 6 %; Neutrophils # (A) 5.1 k/uL (1.3-7.7); Neutrophils % (A) 61 %; Platelet Count 242 k/uL (150-450); RBC 4.57 m/uL (3.80-5.40); RDW 13.9 % (11.5-15.5); WBC 8.3 k/uL (3.8-10.6)
[2019-05-22 08:36] LABS: Calcium 9.4 mg/dL (8.4-10.2); Potassium 4.4 mmol/L (3.5-5.1)
[2019-05-22] MEDS: LISINOPRIL 20 MG TAB PO SCH (08:40)
[2019-05-22] MEDS: glipiZIDE 5 MG TAB PO SCH (08:40)
[2019-05-22] MEDS: AZITHROMYCIN 500 MG TAB PO SCH (08:40)
[2019-05-22] MEDS: CHOLECALCIFEROL 1,000 UNIT TAB PO SCH (08:40)
[2019-05-22] MEDS: DOCUSATE 100 MG CAP PO SCH ×2 (08:40→20:55)
[2019-05-22] MEDS: POLYETHYLENE GLYCOL 3350 17 GM POWD.PACK PO SCH (08:41)
[2019-05-22] MEDS: FAMOTIDINE 20 MG TAB PO SCH (08:41)
[2019-05-22] MEDS: HYDROCHLOROTHIAZIDE 25 MG TAB PO SCH (08:41)
[2019-05-22] MEDS: GABAPENTIN 300 MG CAP PO SCH ×3 (08:41→21:47)
[2019-05-22] MEDS: predniSONE 20 MG TAB PO SCH (08:41)
[2019-05-22] MEDS: amLODIPine 5 MG TAB PO SCH (08:41)
[2019-05-22] MEDS: cloNIDine HCL 0.1 MG TAB PO SCH ×3 (08:41→20:55)
[2019-05-22] MEDS: METOPROLOL SUCCINATE (ER) 25 MG TAB.ER.24H PO SCH (08:41)
[2019-05-22] MEDS: MAGNESIUM OXIDE 400 MG TAB PO SCH (08:41)
[2019-05-22] MEDS: CLOPIDOGREL 75 MG TAB PO SCH (08:41)
[2019-05-22] MEDS: INSULIN ASPART (NovoLOG) 100 UNIT/ML VIAL SQ SCH ×4 (08:42→20:55)
[2019-05-22] MEDS: INSULIN DETEMIR (LEVEMIR) 100 UNIT/ML SYR SQ SCH (08:42)
[2019-05-22] MEDS: ENOXAPARIN 40 MG/0.4 ML SYRINGE SQ SCH (08:44)
[2019-05-22] MEDS: FLUTICASONE 50MCG/SPRAY NASAL 16GM EA NOSTRIL SCH (08:45)
--- NOTE | 2019-05-22 11:26 | P.PN ---
Subjective Progress Note Date: 05/22/19 Nancy Celestin is a 73-year-old female who presented to [facility] emergency Department with chief complaint of shortness of breath. Patient states it started 2 days ago with a runny nose and congestion. Patient started having shortness of breath which worsened over the last 2 days she had occasional cough patient has a known history of asthma, she tried to take nebulizer treatment at home with minimal improvement she decided to come to emergency room, she was evaluated in emergency room that and had evidence of pneumonia she was started on IV antibiotic and was admitted to medical floor pulmonary consultation was requested. On 05/15/2019 patient was seen and examined on the medical floor she is alert and oriented 3 in no apparent distress there is no fever or chills no headache or dizziness no chest pain no shortness of breath she is still complaining of nasal congestion and cough with yellow-green sputum production there is no nausea or vomiting no abdominal pain no diarrhea and no urinary symptoms 05/16/2019 patient reports that her breathing is doing better. She still having some wheezing when walking back from the bathroom. Blood pressures elevated at 176/81 she's receiving IV hydralazine. Patient was started on Norvasc during this admission. Also will add hydrochlorothiazide 25 mg daily. Patient denies any chest pain, nausea or vomiting, or urinary symptoms. 05/17/2019 patient complaining of wheezing throughout the night. She required extra breathing treatment. Hydrochlorothiazide was added yesterday. Awaiting repeat blood pressure after medications given this morning. Blood pressure. This morning was 194/82. Patient is complaining of watery eyes and nasal congestion. Flonase started yesterday. Also will start Claritin. She is complaining of constipation is been about 3-4 days since last bowel movement. Colace and MiraLAX ordered. She refused lactulose at this time. She denies any chest pain or nausea and vomiting. On 05/18/2019 patient is alert and oriented 3. Patient reports some improvement with her shortness of breath but still having significant wheezing. Blood pressure slightly improved yesterday after addition of hydrochlorothiazide will continue to monitor. Patient remains on IV Solu-Medrol. This time patient denies chest pain. Patient denies any nausea vomiting or diarrhea. Patient denies any urinary burning or frequency. On 05/19/2018 patient is alert and oriented 3. Patient still having some wh eezing. Patient does not feel quite ready to be DC'd home. Patient has been transitioned to oral prednisone. We'll continue to monitor blood sugars. Blood pressures have significantly improved. At this time patient denies chest pain or shortness breath. Patient denies nausea vomiting or diarrhea. Patient denies any urinary burning or frequency. 05/20/2019 patient is feeling better today. Pulmonary service had increased the Solu-Medrol to 60 IV every 8 hours. Patient is still wheezing, especially after activity. She was able to ambulate in the hallway. Pulmonary has cleared her for discharge. Patient does not feel quite ready for discharge. Discussed with pulmonary service and will be adding Singulair to her medication regimen. Patient also complaining of constipation we'll give lactulose. Awaiting 2-D echo results. Blood pressure 155/71 this morning. Blood sugar 267 she was received extra insulin. Patient denies any chest pain. Denies any nausea vomiting or abdominal pain. Denies any burning with urination. On 05/22/2019 patient is still wheezing. She is not complaining of shortness of breath. She is now on oral steroids, she feels worse today she is having worse wheezing and shortness of breath. Otherwise she denies any complaints there is no fever or chills no headache no dizziness no chest pain no nausea or vomiting no abdominal pain no diarrhea and no urinary symptoms Objective - Vital Signs Vital signs: Vital Signs Temp 97.7 F 05/22/19 05:00 Pulse 88 05/22/19 08:38 Resp 18 05/22/19 05:00 BP 125/68 05/22/19 05:00 Pulse Ox 97 05/22/19 05:00 Intake & Output 05/21/19 05/22/19 05/22/19 18:59 06:59 18:59 Intake Total 500 420 Balance 500 420 Intake: Oral 500 420 Other: Voiding Method Toilet Toilet # Voids 3 2 - Exam In general patient is alert and oriented 3 in no apparent distress HEENT head normocephalic and atraumatic Neck is supple no JVD no goiter no lymphadenopathy Chest exam reveals a few scattered crackles and mild wheezing Cardiac exam reveals regular heart sounds no gallops no murmurs Abdomen is soft nontender no organomegaly was normal bowel sounds Extremity exam reveals 1+ edema with some puffiness in the feet no cyanosis or clubbing - Labs CBC & Chem 7: 05/22/19 07:05 05/22/19 07:34 Labs: Abnormal Lab Results - Last 24 Hours (Table) 05/21/19 05/21/19 05/21/19 Range/Units 11:33 17:09 20:32 Chloride (98-107) mmol/L Carbon Dioxide (22-30) mmol/L BUN (7-17) mg/dL Glucose (74-99) mg/dL POC Glucose (mg/dL) 299 H 308 H 317 H (75-99) mg/dL 05/22/19 05/22/19 Range/Units 06:58 07:34 Chloride 95 L (98-107) mmol/L Carbon Dioxide 35 H (22-30) mmol/L BUN 49 H (7-17) mg/dL Glucose 141 H (74-99) mg/dL POC Glucose (mg/dL) 166 H (75-99) mg/dL Assessment and Plan Plan: #1 possible pneumonia chest x-rays showing perihilar infiltrate and bilateral basilar infiltrate she was started on IV Rocephin and po Zithromax in the emergency room. She is currently on oral azithromycin. Sputum culture normal respiratory alexsandra. Pulmonary following. Pro-calcitonin level normal at 0.05. Discussed with pulmonary service. They're recommending a repeat sputum culture. #2 acute exacerbation of moderate persistent chronic bronchial asthma continue DuoNeb updrafts, IV steroids Pulmicort and Perforomist. Pulmonary service is following closely. Discussed pulmonary service will decrease steroids from 60 mg IV every 8 to40 mg IV every 12 hours. We'll add Singulair due to an ALLERGY component of her asthma. #3 underlying history of hypertension #4 underlying history of diabetes mellitus type 2. Elevated blood sugars secondary to steroids. Hemoglobin A1c 7.7. Uncontrolled blood sugars secondary to steroids will be adding Lantus 10 units daily. Discontinue metformin since patient is currently not need another computed tomography scan requiring contrast #5 underlying history of hyperlipidemia #6 essential hypertension: Patient's blood pressures are better controlled today. Clonidine was added yesterday. Also note Norvasc and hydrochlorothiazide added during this admission. Continue the IV hydralazine as needed #7 recent sinus infection and patient still having some sinus congestion will resume her Flonase nasal spray. Add Claritin #8 morbid obesity 9. Constipation improving with Colace and MiraLAX 10. CT chest shows Bibasilar areas of atelectasis or scarring 1.1 cm nodular density in the inferior lingula could represent a nodular area of atelectasis or scarring 3 month follow-up CT recommended to reassess. Pulmonary arterial hypertension and CAD. Pulmonary is following. Order incentive spirometry for atelectasis. 11. 1.7 cm enhancing lesion in the midleft kidney. Renal ultrasound completed showing lobular contour left kidney corresponding to the question mass in prior CT chest dated 05/16/2019 this is equivocal for neoplasm and three-phase abdominal CT or MRI are recommended for for characterization to evaluate for enhancement characteristics. Patient seen by urology. They are recommending a CT scan of the abdomen with and without IV contrast in a few days since patient had a recent computed tomography scan of the chest with contrast. At this time metformin has been discontinued. CT of abdomen and pelvis completed showing no suspicious solid or cystic renal mass. Moderate proximal colonic fecal stasis. No bowel obstruction. Calcified fibroid uterus. 12. Constipation: We'll give lactulose. Continue Colace and MiraLAX Physical therapy recommending home care at discharge Plan Add Singulair and discontinue Claritin Decrease IV steroids Lactulose for constipation Echo pending GI prophylaxis Pepcid and DVT prophylaxis Lovenox
--- NOTE | 2019-05-22 11:31 | P.PN ---
Subjective Progress Note Date: 05/22/19 Principal diagnosis: Acute exacerbation of moderate persistent chronic bronchial asthma This is 73-year-old female patient of Dr. Shelby, with past medical history of moderately persistent bronchial asthma, who was recently treated for a sinus infection with a course of antibiotics, and patient finished it on May 05. She stated her symptoms did improve after that, however on she was out with her friend, and she started getting watery eyes, increased nasal drainage which was clear, increased sinus congestion. She returned home her chest was feeling tight, she was having difficulty breathing. She took her nebulized bronchodilator, and her symptoms became worse, and she came into the hospital on 05/14/2019 to the emergency department. Patient states her symptoms usually are well-controlled other than during the weather change, with high humidity and hot weather. Patient also has ALLERGIES to pollen, dust and ragweed. Chest x- ray was obtained showing basilar atelectasis or infiltrates with tiny effusions, patchy perihilar changes with interstitial pneumonitis or venous congestion. She denied fever or chills, no nausea vomiting or diarrhea. Labs did not show any leukocytosis, white blood cell count is 4.9, hemoglobin is 11.4, INR 0.9, serum sodium is 140, potassium is 3.4, chloride was 101, CO2 is 31, BUN is 14, creatinine 0.70, troponin was negative 1, proBNP was 492, influenza screen was negative. Patient was started on nebulized bronchodilators, she was given a dose of IV Solu-Medrol 125 mg in the emergency department, empiric antibiotics in the form of Zithromax and Rocephin, and was admitted for further management. Other medical history includes diabetes mellitus, hypertension, hyperlipidemia, CVA/TIA, rheumatoid arthritis, and patient is under the care of Dr. Potter, on [facility] for maintenance. On 05/16/2019 patient seen in follow-up on medical surgical floor. She is moving better air today, sounds more wheezing and bronchospastic, with better air entry at lower bases of the lungs. She states she is breathing easier, although not back to normal, room air pulse ox is 97%, she is afebrile, hemodynamically patient is stable, as a positive for diffuse wheezes bilaterally, patient is on IV steroids at 40 mg every 12 hours, she is on Pulmicort and Perforomist, nebulized bronchodilators, Zithromax and Rocephin, urine culture has been sent, preliminary Gram stain showed few gram-positive cocci and peers in chains few gram-negative bacilli, final cultures pending. The patient is seen today 05/17/2019 in follow-up on the regular medical floor. She is currently sitting up in bed. Awake and alert in no acute distress. Breathing easier today as compared to yesterday. Still somewhat bronchospastic and wheezy mostly with exertion. O2 saturations in the high 90s on 2 L/m per nasal cannula. She's afebrile. Slightly hypertensive. Sputum culture reveals no growth. White count 6.0. Hemoglobin 11.1. Creatinine 0.73. Sputum culture reveals no growth. Remains on DuoNeb inhalations, Pulmicort and Perforomist inhalations, IV Solu-Medrol. Computed tomography scan of the chest reveals prominent strandy bibasilar atelectasis/scarring. There is a 1.1 cm nodular density in the inferior lingula could represent atelectasis/scar. A 1.7 cm lesion of the left kidney. The patient is seen today 05/18/2019 in follow-up on the regular medical floor. She is awake and alert in no acute distress. Resting comfortably in bed. She is improved today as compared to yesterday. Still not quite back to her base line. Still with some wheezing. Still with some dyspnea on exertion. Maintaining good O2 saturations in the upper 90s on 2 L/m per nasal cannula. She's afebrile. Sputum culture reveals no growth. White count 6.2. Hemoglobin 11.2. Creatinine 0.74. The patient is seen today 05/19/2019 in follow-up on the regular medical floor. She is ambulating in the room up to the bathroom. She is still wheezing and short of breath with minimal exertion. Maintaining good O2 saturations in the high 90s on 2 L/m per nasal cannula. She's afebrile. Sputum culture reveals no growth. White count 6.4. Hemoglobin 11.5. Creatinine 0.68. The patient was seen today 05/20/2019 in follow-up on the regular medical floor. She is better today as compared to yesterday. Less bronchospastic and wheezing. Up ambulating in the room. Maintaining good O2 saturations in the mid 90s on room air. She's been afebrile. Sputum culture reveals no growth. White count 7.1. Hemoglobin 11.9. Creatinine 0.83. She remains on DuoNeb inhalations, Pulmicort and Perforomist inhalations, IV Solu-Medrol, Singulair. Antibiotics in the form of azithromycin. The patient is seen today 05/21/2019 in follow-up on the regular medical floor. She is currently sitting up in bed. Awake and alert in no acute distress. She states her breathing is now back to its baseline. No wheezing. No dyspnea on exertion. No cough or congestion currently. She is maintaining good O2 saturations in the 90s on room air. She's been afebrile. Hemodynamically stable. Sodium 136. Creatinine 0.97. Reevaluated today on 05/22/2019, remains on the regular medical floor, patient is sitting in bed, asymptomatic except for occasional cough and wheezing. No fever no chills no hemoptysis no chest pain. Patient is hemodynamically stable. Labs from today were basically unremarkable, BUN however is up to 49 and creatinine 0.98, CBC is normal. Patient is feeling steady improvement, but not back to her baseline quite yet. Objective - Vital Signs Vital signs: Vital Signs Temp 97.7 F 05/22/19 05:00 Pulse 84 05/22/19 11:16 Resp 18 05/22/19 05:00 BP 125/68 05/22/19 05:00 Pulse Ox 97 05/22/19 05:00 Intake & Output 05/21/19 05/22/19 05/22/19 18:59 06:59 18:59 Intake Total 500 420 Balance 500 420 Intake: Oral 500 420 Other: Voiding Method Toilet Toilet # Voids 3 2 - Exam GENERAL EXAM: Pleasant 73-year-old obese female patient. Asymptomatic except for occasional cough and wheezing, on room air. HEAD: Normocephalic. EYES: Normal reaction of pupils, equal size. NOSE: Clear with pink turbinates. THROAT: Crowding of posterior pharynx. No erythema or exudates. NECK: No masses, no JVD. CHEST: No chest wall deformity. LUNGS: Equal air entry wheezing noted bilaterally more so on forced expiratory maneuver. Symmetrical chest expansion. CVS: S1 and S2 normal with no audible murmur, regular rhythm. ABDOMEN: No hepatosplenomegaly, normal bowel sounds, no guarding or rigidity. SPINE: No scoliosis or deformity SKIN: No rashes CENTRAL NERVOUS SYSTEM: No focal deficits, tone is normal in all 4 extremities. EXTREMITIES: There is trace peripheral edema. No clubbing, no cyanosis. Peripheral pulses are intact. - Labs CBC & Chem 7: 05/22/19 07:05 05/22/19 07:34 Labs: Abnormal Lab Results - Last 24 Hours (Table) 05/21/19 05/21/19 05/21/19 Range/Units 11:33 17:09 20:32 Chloride (98-107) mmol/L Carbon Dioxide (22-30) mmol/L BUN (7-17) mg/dL Glucose (74-99) mg/dL POC Glucose (mg/dL) 299 H 308 H 317 H (75-99) mg/dL 05/22/19 05/22/19 Range/Units 06:58 07:34 Chloride 95 L (98-107) mmol/L Carbon Dioxide 35 H (22-30) mmol/L BUN 49 H (7-17) mg/dL Glucose 141 H (74-99) mg/dL POC Glucose (mg/dL) 166 H (75-99) mg/dL Assessment and Plan Assessment: #1. Acute hypoxic respiratory failure secondary to an acute exacerbation of moderate persistent chronic bronchial asthma, chest x-ray showed basilar atelectasis, with tiny pleural effusions, and pulmonary arterial hypertension. Triggers include change in weather, pollen, dust and ragweed and recovered. #2. Recent sinus infection, and patient was treated with outpatient course of oral antibiotics completed on May 05 #3. Steroid-induced hyperglycemia #4. Diabetes mellitus type 2 #5. Hypertension #6. Hyperlipidemia #7. Morbid obesity #8. Mass on the left kidney without hydronephrosis. Equivocal for neoplasm. Being followed by urology. Recommendation: Continue present course of treatment including bronchodilators, antibiotics, steroids, consider discharge planning in the next 24 hours. If patient is to be discharged home on prednisone, suggest prednisone 40 mg tapered over at least a period of 2-3 weeks. Must have follow-up on outpatient basis. Time with Patient: Less than 30
[2019-05-22 11:38] LABS: Glucose,Whole Blood 258 mg/dL (75-99)
[2019-05-22 16:51] LABS: Glucose,Whole Blood 312 mg/dL (75-99)
[2019-05-22 17:08] VITALS: RESP 18
[2019-05-22 19:56] LABS: Glucose,Whole Blood 375 mg/dL (75-99)
[2019-05-22] MEDS: EZETIMIBE 10 MG TAB PO SCH (20:55)
[2019-05-22] MEDS: MONTELUKAST 10 MG TAB PO SCH (20:55)
[2019-05-23 07:05] LABS: Glucose,Whole Blood 113 mg/dL (75-99)
[2019-05-23] MEDS: IPRATROPIUM-ALBUTEROL 3 ML NEB INHALATION SCH ×4 (07:25→19:46)
[2019-05-23] MEDS: BUDESONIDE 1 MG/2 ML NEBU INHALATION SCH ×2 (07:25→19:46)
[2019-05-23] MEDS: FORMOTEROL FUMARATE 20 MCG/2 ML NEBU INHALATION SCH ×2 (07:25→19:45)
[2019-05-23] MEDS: amLODIPine 5 MG TAB PO SCH (09:15)
[2019-05-23] MEDS: GABAPENTIN 300 MG CAP PO SCH ×3 (09:15→23:02)
[2019-05-23] MEDS: CLOPIDOGREL 75 MG TAB PO SCH (09:16)
[2019-05-23] MEDS: FAMOTIDINE 20 MG TAB PO SCH (09:16)
[2019-05-23] MEDS: LISINOPRIL 20 MG TAB PO SCH (09:16)
[2019-05-23] MEDS: cloNIDine HCL 0.1 MG TAB PO SCH ×3 (09:16→22:57)
[2019-05-23] MEDS: MAGNESIUM OXIDE 400 MG TAB PO SCH (09:16)
[2019-05-23] MEDS: DOCUSATE 100 MG CAP PO SCH ×2 (09:16→21:03)
[2019-05-23] MEDS: predniSONE 20 MG TAB PO SCH (09:16)
[2019-05-23] MEDS: ENOXAPARIN 40 MG/0.4 ML SYRINGE SQ SCH (09:17)
[2019-05-23] MEDS: METOPROLOL SUCCINATE (ER) 25 MG TAB.ER.24H PO SCH (09:22)
[2019-05-23] MEDS: INSULIN DETEMIR (LEVEMIR) 100 UNIT/ML SYR SQ SCH (09:23)
[2019-05-23] MEDS: AZITHROMYCIN 500 MG TAB PO SCH (09:23)
[2019-05-23] MEDS: INSULIN ASPART (NovoLOG) 100 UNIT/ML VIAL SQ SCH ×4 (09:24→21:04)
[2019-05-23] MEDS: HYDROCHLOROTHIAZIDE 25 MG TAB PO SCH (09:24)
[2019-05-23] MEDS: POLYETHYLENE GLYCOL 3350 17 GM POWD.PACK PO SCH (09:24)
[2019-05-23] MEDS: glipiZIDE 5 MG TAB PO SCH (09:24)
[2019-05-23] MEDS: FLUTICASONE 50MCG/SPRAY NASAL 16GM EA NOSTRIL SCH (09:25)
[2019-05-23] MEDS: CHOLECALCIFEROL 1,000 UNIT TAB PO SCH (09:27)
--- NOTE | 2019-05-23 09:52 | ECHOF ---
Referral Reason:check EF MEASUREMENTS -------- HEIGHT: 172.7 cm WEIGHT: 129.7 kg BP: RVIDd: 3.4 cm (< 3.3) IVSd: 1.3 cm (0.6 - 1.1) LVIDd: 3.8 cm (3.9 - 5.3) LVPWd: 1.3 cm (0.6 - 1.1) IVSs: 1.8 cm LVIDs: 2.4 cm LVPWs: 1.8 cm LA Diam: 4.1 cm (2.7 - 3.8) LAESV Index (A-L): 43.58 ml/m Ao Diam: 3.1 cm (2.0 - 3.7) AV Cusp: 2.0 cm (1.5 - 2.6) EPSS: 0.5 cm MV E Sriram: 1.06 m/s MV DecT: 361 ms MV A Sriram: 1.31 m/s MV E/A Ratio: 0.81 AV maxP.25 mmHg AV meanP.66 mmHg RAP: 5.00 mmHg RVSP: 34.88 mmHg MV EF SLOPE: 45.79 mm/s (70 - 150) MV EXCURSION: 1.68 cm (> 18.000) FINDINGS -------- Sinus rhythm. This was a technically adequate study. The left ventricular size is normal. There is mild concentric left ventricular hypertrophy. Overa ll left ventricular systolic function is normal with, an EF between 60 - 65 %. The right ventricle is mildly enlarged. Left atrium is severely dilated by volume. The right atrium is normal in size and function. There is mild aortic stenosis present. Peak/mean gradient across the valve is 16.25mmHg / 8.66mmHg. The mitral valve leaflets are moderately thickened. Moderate mitral annular calcification present. There is trace to mild mitral regurgitation. Mild mitral stenosis. Mild tricuspid regurgitation present. There is mild pulmonary hypertension. The right ventricular systolic pressure, as measured by Doppler, is 34.88mmHg. The pulmonic valve was not well visualized. The aortic root size is normal. There is no pericardial effusion. CONCLUSIONS -------- 1. Sinus rhythm. 2. This was a technically adequate study. 3. The left ventricular size is normal. 4. There is mild concentric left ventricular hypertrophy. 5. Overall left ventricular systolic function is normal with, an EF between 60 - 65 %. 6. The right ventricle is mildly enlarged. 7. Left atrium is severely dilated by volume. 8. The right atrium is normal in size and function. 9. There is mild aortic stenosis present. 10. Peak/mean gradient across the valve is 16.25mmHg / 8.66mmHg. 11. The mitral valve leaflets are moderately thickened. 12. Moderate mitral annular calcification present. 13. There is trace to mild mitral regurgitation. 14. Mild mitral stenosis. 15. Mild tricuspid regurgitation present. 16. There is mild pulmonary hypertension. 17. The right ventricular systolic pressure, as measured by Doppler, is 34.88mmHg. 18. The pulmonic valve was not well visualized. 19. The aortic root size is normal. 20. There is no pericardial effusion. CATHEAD OPERATOR: JAMARI Serrano
[2019-05-23 09:57] LABS: Basophils % (A) 0 %; Eosinophils # (A) 0.1 k/uL (0-0.7); Eosinophils % (A) 2 %; HCT 39.3 % (34.0-46.0); HGB 12.3 gm/dL (11.4-16.0); Lymphocytes # (A) 3.2 k/uL (1.0-4.8); Lymphocytes % (A) 36 %; MCH 28.1 pg (25.0-35.0); MCHC 31.2 g/dL (31.0-37.0); MCV 90.1 fL (80.0-100.0); Mean Platelet Volume 8.4; Monocytes # (A) 0.5 k/uL (0-1.0); Monocytes % (A) 5 %; Neutrophils % (A) 56 %; Platelet Count 292 k/uL (150-450); RBC 4.36 m/uL (3.80-5.40); RDW 13.2 % (11.5-15.5); WBC 8.9 k/uL (3.8-10.6)
[2019-05-23 10:10] LABS: Albumin 3.3 g/dL (3.5-5.0); Potassium 4.1 mmol/L (3.5-5.1); Total Bilirubin 0.5 mg/dL (0.2-1.3); Total Protein 6.2 g/dL (6.3-8.2)
[2019-05-23] MEDS ORDERED: LACTULOSE 20 GM/30 ML CUP PO ONE (11:03)
--- NOTE | 2019-05-23 11:14 | P.PN ---
Subjective Progress Note Date: 05/23/19 Nancy Celestin is a 73-year-old female who presented to [facility] emergency Department with chief complaint of shortness of breath. Patient states it started 2 days ago with a runny nose and congestion. Patient started having shortness of breath which worsened over the last 2 days she had occasional cough patient has a known history of asthma, she tried to take nebulizer treatment at home with minimal improvement she decided to come to emergency room, she was evaluated in emergency room that and had evidence of pneumonia she was started on IV antibiotic and was admitted to medical floor pulmonary consultation was requested. On 05/15/2019 patient was seen and examined on the medical floor she is alert and oriented 3 in no apparent distress there is no fever or chills no headache or dizziness no chest pain no shortness of breath she is still complaining of nasal congestion and cough with yellow-green sputum production there is no nausea or vomiting no abdominal pain no diarrhea and no urinary symptoms 05/16/2019 patient reports that her breathing is doing better. She still having some wheezing when walking back from the bathroom. Blood pressures elevated at 176/81 she's receiving IV hydralazine. Patient was started on Norvasc during this admission. Also will add hydrochlorothiazide 25 mg daily. Patient denies any chest pain, nausea or vomiting, or urinary symptoms. 05/17/2019 patient complaining of wheezing throughout the night. She required extra breathing treatment. Hydrochlorothiazide was added yesterday. Awaiting repeat blood pressure after medications given this morning. Blood pressure. This morning was 194/82. Patient is complaining of watery eyes and nasal congestion. Flonase started yesterday. Also will start Claritin. She is complaining of constipation is been about 3-4 days since last bowel movement. Colace and MiraLAX ordered. She refused lactulose at this time. She denies any chest pain or nausea and vomiting. On 05/18/2019 patient is alert and oriented 3. Patient reports some improvement with her shortness of breath but still having significant wheezing. Blood pressure slightly improved yesterday after addition of hydrochlorothiazide will continue to monitor. Patient remains on IV Solu-Medrol. This time patient denies chest pain. Patient denies any nausea vomiting or diarrhea. Patient denies any urinary burning or frequency. 05/19/2019 patient is still wheezing. She is not complaining of shortness of b reath. Still remaining on IV steroids. Discussed with pulmonary nurse practitioner. Patient's blood sugars are elevated due to the steroids. She is requiring extra insulin. We'll add Lantus 10 units daily. She's had blood sugars in the 300s. Last blood sugar 254. Patient seen by urology regarding questionable renal mass. They're recommending a computed tomography scan of the abdomen with and without IV contrast in a couple of days due to her recent computed tomography scan of the chest. Patient's blood pressures are still elevated this morning 164/73. Awaiting repeat blood pressure after medications given. Patient denies any chest pain. Reports having bowel movements. Denies any difficulty urinating. 05/20/2019 patient is feeling better today. Pulmonary service had increased the Solu-Medrol to 60 IV every 8 hours. Patient is still wheezing, especially after activity. She was able to ambulate in the hallway. Pulmonary has cleared her for discharge. Patient does not feel quite ready for discharge. Discussed with pulmonary service and will be adding Singulair to her medication regimen. Patient also complaining of constipation we'll give lactulose. Awaiting 2-D e cho results. Blood pressure 155/71 this morning. Blood sugar 267 she was received extra insulin. Patient denies any chest pain. Denies any nausea vomiting or abdominal pain. Denies any burning with urination. On 05/22/2019 patient is still wheezing. She is not complaining of shortness of breath. She is now on oral steroids, she feels worse today she is having worse wheezing and shortness of breath. Otherwise she denies any complaints there is no fever or chills no headache no dizziness no chest pain no nausea or vomiting no abdominal pain no diarrhea and no urinary symptoms 05/23/2019 patient reports that she still having some wheezing. She does not feel quite ready for discharge. Pulmonary has cleared her. She is on oral prednisone. She reports that she is still feeling fairly constipated. Had small BM yesterday. She denies any chest pain. Denies any nausea or vomiting. Denies any severe shortness of breath. Denies any burning with urination. Echo shows an EF of 60-65% mild left ventricular hypertrophy and mild aortic stenosis, moderate mitral annular calcification present, mild pulmonary hypertension, trace mitral regurgitation, mild tricuspid regurgitation and mild mitral stenosis Objective - Vital Signs Vital signs: Vital Signs Temp 97.6 F 05/23/19 05:00 Pulse 72 05/23/19 07:51 Resp 18 05/23/19 05:00 BP 126/64 05/23/19 05:00 Pulse Ox 98 05/23/19 07:28 Intake & Output 05/22/19 05/23/19 05/23/19 18:59 06:59 18:59 Intake Total 800 590 Balance 800 590 Intake: Oral 800 590 Other: Voiding Method Toilet Toilet # Voids 3 1 - Exam Head normocephalic Neck supple Lungs expiratory wheezing noted bilaterally but improving air movement Heart regular rate and rhythm S1-S2, no rub or gallop Abdomen is soft nontender nondistended positive bowel sounds no hepatosplenomegaly Extremities swelling noted bilateral lower extremities Neuro alert and orientated to 3 - Labs CBC & Chem 7: 05/23/19 09:20 05/23/19 09:20 Labs: Abnormal Lab Results - Last 24 Hours (Table) 05/22/19 05/22/19 05/22/19 Range/Units 11:37 16:50 19:55 Chloride (98-107) mmol/L Carbon Dioxide (22-30) mmol/L BUN (7-17) mg/dL Glucose (74-99) mg/dL POC Glucose (mg/dL) 258 H 312 H 375 H (75-99) mg/dL Total Protein (6.3-8.2) g/dL Albumin (3.5-5.0) g/dL 05/23/19 05/23/19 Range/Units 06:57 09:20 Chloride 96 L (98-107) mmol/L Carbon Dioxide 31 H (22-30) mmol/L BUN 49 H (7-17) mg/dL Glucose 232 H (74-99) mg/dL POC Glucose (mg/dL) 113 H (75-99) mg/dL Total Protein 6.2 L (6.3-8.2) g/dL Albumin 3.3 L (3.5-5.0) g/dL Assessment and Plan Assessment: #1 possible pneumonia chest x-rays showing perihilar infiltrate and bilateral basilar infiltrate she was started on IV Rocephin and po Zithromax in the emergency room. She is currently on oral azithromycin. Sputum culture normal respiratory alexsandra. Pulmonary following. Pro-calcitonin level normal at 0.05. #2 acute exacerbation of moderate persistent chronic bronchial asthma continue DuoNeb updrafts, Pulmicort and Perforomist. We'll add Singulair due to an ALLERGY component of her asthma. Patient was switched to oral prednisone #3 underlying history of hypertension #4 underlying history of diabetes mellitus type 2. Elevated blood sugars secondary to steroids. Hemoglobin A1c 7.7. Uncontrolled blood sugars secondary to steroids will be adding Lantus 10 units daily. Discontinue metformin since patient is currently not need another computed tomography scan requiring contrast #5 underlying history of hyperlipidemia #6 essential hypertension: Patient's blood pressures are better controlled today. Clonidine was added yesterday. Also note Norvasc and hydrochlorothiazide added during this admission. Continue the IV hydralazine as needed #7 recent sinus infection and patient still having some sinus congestion will resume her Flonase nasal spray. Add Claritin #8 morbid obesity 9. Constipation improving with Colace and MiraLAX 10. CT chest shows Bibasilar areas of atelectasis or scarring 1.1 cm nodular density in the inferior lingula could represent a nodular area of atelectasis or scarring 3 month follow-up CT recommended to reassess. Pulmonary arterial hypertension and CAD. Pulmonary is following. continue incentive spirometry for atelectasis. 11. Kidney lesion ruled out. CT of abdomen and pelvis completed showing no suspicious solid or cystic renal mass. Moderate proximal colonic fecal stasis. No bowel obstruction. Calcified fibroid uterus. 12. Constipation: We'll give another dose of lactulose. Continue Colace and MiraLAX Physical therapy recommending home care at discharge Anticipate discharge home tomorrow. Encouraged patient to increase activity today. GI prophylaxis Pepcid and DVT prophylaxis Lovenox I performed an examination of the patient and discussed their management with the physician Drum Puller. I have reviewed the Physician Drum Puller's notes and agree with the documented findings and plan of care
[2019-05-23 12:00] LABS: Glucose,Whole Blood 188 mg/dL (75-99)
[2019-05-23] MEDS ORDERED: methylPREDNISolone SOD SUCCI 125 MG/2 ML VIAL IV STA (14:08)
--- NOTE | 2019-05-23 15:19 | P.PN ---
Subjective Progress Note Date: 05/23/19 Principal diagnosis: Exacerbation of moderate persistent chronic bronchial asthma This is 73-year-old white female patient of Dr. Shelby, with past medical history of moderately persistent bronchial asthma, who was recently treated for a sinus infection with a course of antibiotics, and patient finished it on May 05. She stated her symptoms did improve after that, however on she was out with her friend, and she started getting watery eyes, increased nasal drainage which was clear, increased sinus congestion. She returned home her chest was feeling tight, she was having difficulty breathing. She took her nebulized bronchodilator, and her symptoms became worse, and she came into the hospital on 05/14/2019 to the emergency department. Patient states her symptoms usually are well-controlled other than during the weather change, with high humidity and hot weather. Patient also has ALLERGIES to pollen, dust and ragweed. Chest x-ray was obtained showing basilar atelectasis or infiltrates with tiny effusions, patchy perihilar changes with interstitial pneumonitis or venous congestion. She denied fever or chills, no nausea vomiting or diarrhea. Labs did not show any leukocytosis, white blood cell count is 4.9, hemoglobin is 11.4, INR 0.9, serum sodium is 140, potassium is 3.4, chloride was 101, CO2 is 31, BUN is 14, creatinine 0.70, troponin was negative 1, proBNP was 492, influenza screen was negative. Patient was started on nebulized bronc hodilators, she was given a dose of IV Solu-Medrol 125 mg in the emergency department, empiric antibiotics in the form of Zithromax and Rocephin, and was admitted for further management. Other medical history includes diabetes mellitus, hypertension, hyperlipidemia, CVA/TIA, rheumatoid arthritis, and patient is under the care of Dr. Potter, on [facility] for maintenance. On 05/16/2019 patient seen in follow-up on medical surgical floor. She is moving better air today, sounds more wheezing and bronchospastic, with better air entry at lower bases of the lungs. She states she is breathing easier, although not back to normal, room air pulse ox is 97%, she is afebrile, hemodynamically patient is stable, as a positive for diffuse wheezes bilaterally, patient is on IV steroids at 40 mg every 12 hours, she is on Pulmicort and Perforomist, nebulized bronchodilators, Zithromax and Rocephin, urine culture has been sent, preliminary Gram stain showed few gram-positive cocci and peers in chains few gram-negative bacilli, final cultures pending. On 05/23/2019 patient is seen in follow-up on medical surgical floor. She is resting in bed, in no acute distress, lung sounds reveal minimal end expiratory wheezing on the right side, no rhonchi, rales. Patient states overall her breathing has improved since admission, occasional cough, no sputum production, no fever or chills, no chest pain or hemoptysis. Hemodynamically stable, today's labs have been reviewed, showing low blood cell count of 8.9, hemoglobin 12.3, platelet count is 292, sodium is 137, potassium is 4.1, chloride is 96, CO2 is 21, BUN is 49, creatinine 0.97. Patient is on Zithromax, nebulized bronchodilators, Pulmicort, Perforomist. Patient is now on oral steroids, and was given an additional dose of IV steroids for wheezing Objective - Vital Signs Vital signs: Vital Signs Temp 97.5 F L 05/23/19 11:58 Pulse 58 L 05/23/19 11:58 Resp 18 05/23/19 11:58 BP 113/62 05/23/19 11:58 Pulse Ox 98 05/23/19 11:58 Intake & Output 05/22/19 05/23/19 05/23/19 18:59 06:59 18:59 Intake Total 800 590 590 Balance 800 590 590 Intake: Oral 800 590 590 Other: Voiding Method Toilet Toilet # Voids 3 1 2 - Exam GENERAL EXAM: Alert, pleasant 73-year-old obese -[place] female, comfortable in no apparent distress. HEAD: Normocephalic/atraumatic. EYES: Normal reaction of pupils, equal size. Conjunctiva pink, sclera white. NOSE: Clear with pink turbinates. THROAT: No erythema or exudates. NECK: No masses, no JVD, no thyroid enlargement, no adenopathy. CHEST: No chest wall deformity. Symmetrical expansion. LUNGS: Equal air entry with diminished breath sounds, with end expiratory wheezes CVS: Regular rate and rhythm, normal S1 and S2, no gallops, no murmurs, no rubs ABDOMEN: Soft, nontender. No hepatosplenomegaly, normal bowel sounds, no guarding or rigidity. EXTREMITIES: No clubbing, no edema, no cyanosis, 2+ pulses and upper and lower extremities. MUSCULOSKELETAL: Muscle strength and tone normal. SPINE: No scoliosis or deformity SKIN: No rashes CENTRAL NERVOUS SYSTEM: Alert and oriented -3. No focal deficits, tone is normal in all 4 extremities. PSYCHIATRIC: Alert and oriented -3. Appropriate affect. Intact judgment and insight. - Labs CBC & Chem 7: 05/23/19 09:20 05/23/19 09:20 Labs: Abnormal Lab Results - Last 24 Hours (Table) 05/22/19 05/22/19 05/23/19 Range/Units 16:50 19:55 06:57 Chloride (98-107) mmol/L Carbon Dioxide (22-30) mmol/L BUN (7-17) mg/dL Glucose (74-99) mg/dL POC Glucose (mg/dL) 312 H 375 H 113 H (75-99) mg/dL Total Protein (6.3-8.2) g/dL Albumin (3.5-5.0) g/dL 05/23/19 05/23/19 Range/Units 09:20 11:58 Chloride 96 L (98-107) mmol/L Carbon Dioxide 31 H (22-30) mmol/L BUN 49 H (7-17) mg/dL Glucose 232 H (74-99) mg/dL POC Glucose (mg/dL) 188 H (75-99) mg/dL Total Protein 6.2 L (6.3-8.2) g/dL Albumin 3.3 L (3.5-5.0) g/dL Assessment and Plan Plan: Assessment: #1. Acute exacerbation of moderate persistent chronic bronchial asthma, chest x-ray showed basilar atelectasis, with tiny pleural effusions, and pulmonary arterial hypertension. Triggers include change in weather, pollen, dust and ragweed #2. Recent sinus infection, and patient was treated with outpatient course of oral antibiotics completed on May 05 #3. Steroid-induced hyperglycemia #4. Diabetes mellitus type 2 #5. Hypertension #6. Hyperlipidemia #7. Morbid obesity #8. Mass on the left kidney without hydronephrosis, equivocal for neoplasm, being followed by urology Plan: Patient is improving, no acute events overnight, increase activity as tolerated, encourage deep breathing and coughing, patient is on room air, no fever or chills, and culture showed no growth, patient is now on oral steroids, still has some exertional dyspnea, and wheezing was given additional dose of Solu-Medrol. We'll continue with nebulized bronchodilators, otherwise patient is stable for discharge home from pulmonary perspective, in the next 24 hours. I performed a history & physical examination of the patient and discussed their management with my nurse practitioner, Tisha Barnes. I reviewed the nurse practitioner's note and agree with the documented findings and plan of care. Lung sounds are positive for diffuse wheezes throughout the lung ennis. The findings and the impression was discussed with the patient. I attest to the documentation by the nurse practitioner. Time with Patient: Less than 30
[2019-05-23] MEDS: NON-FORMULARY DRUG (Ubidecarenone [Co Q-10] 100 MG) PO SCH (16:01)
[2019-05-23 16:55] LABS: Glucose,Whole Blood 465 mg/dL (75-99)
[2019-05-23 17:45] LABS: Glucose,Whole Blood 506 mg/dL (75-99)
[2019-05-23 18:10] LABS: Glucose,Whole Blood 447 mg/dL (75-99)
[2019-05-23] MEDS ORDERED: INSULIN ASPART (NovoLOG) 100 UNIT/ML VIAL SQ STA (18:19)
[2019-05-23 20:01] LABS: Glucose,Whole Blood 304 mg/dL (75-99)
[2019-05-23] MEDS: EZETIMIBE 10 MG TAB PO SCH (21:03)
[2019-05-23] MEDS: MONTELUKAST 10 MG TAB PO SCH (21:04)
[2019-05-24 02:04] LABS: Glucose,Whole Blood 106 mg/dL (75-99)
[2019-05-24 05:28] VITALS: BP 148/66; TEMP 97.5
[2019-05-24 06:56] LABS: Glucose,Whole Blood 106 mg/dL (75-99)
[2019-05-24] MEDS ORDERED: INSULIN DETEMIR (LEVEMIR) 100 UNIT/ML SYR SQ SCH (07:00)
[2019-05-24] MEDS: BUDESONIDE 1 MG/2 ML NEBU INHALATION SCH (07:29)
[2019-05-24] MEDS: FORMOTEROL FUMARATE 20 MCG/2 ML NEBU INHALATION SCH (07:29)
[2019-05-24] MEDS: IPRATROPIUM-ALBUTEROL 3 ML NEB INHALATION SCH ×2 (07:30→11:02)
[2019-05-24 08:34] LABS: Basophils % (A) 0 %; Eosinophils # (A) 0.1 k/uL (0-0.7); Eosinophils % (A) 1 %; HCT 40.2 % (34.0-46.0); HGB 12.4 gm/dL (11.4-16.0); Lymphocytes # (A) 3.1 k/uL (1.0-4.8); Lymphocytes % (A) 26 %; MCH 27.5 pg (25.0-35.0); MCHC 30.8 g/dL (31.0-37.0); MCV 89.3 fL (80.0-100.0); Monocytes # (A) 0.5 k/uL (0-1.0); Monocytes % (A) 4 %; Neutrophils # (A) 7.8 k/uL (1.3-7.7); Neutrophils % (A) 67 %; Platelet Count 312 k/uL (150-450); WBC 11.7 k/uL (3.8-10.6)
[2019-05-24] MEDS: INSULIN ASPART (NovoLOG) 100 UNIT/ML VIAL SQ SCH ×2 (08:54→11:02)
[2019-05-24 08:58] LABS: Calcium 9.4 mg/dL (8.4-10.2); Potassium 4.5 mmol/L (3.5-5.1)
[2019-05-24] MEDS: FAMOTIDINE 20 MG TAB PO SCH (09:11)
[2019-05-24] MEDS: GABAPENTIN 300 MG CAP PO SCH (09:11)
[2019-05-24] MEDS: ENOXAPARIN 40 MG/0.4 ML SYRINGE SQ SCH (09:11)
[2019-05-24] MEDS: amLODIPine 5 MG TAB PO SCH (09:11)
[2019-05-24] MEDS: POLYETHYLENE GLYCOL 3350 17 GM POWD.PACK PO SCH (09:11)
[2019-05-24] MEDS: MAGNESIUM OXIDE 400 MG TAB PO SCH (09:12)
[2019-05-24] MEDS: CHOLECALCIFEROL 1,000 UNIT TAB PO SCH (09:12)
[2019-05-24] MEDS: METOPROLOL SUCCINATE (ER) 25 MG TAB.ER.24H PO SCH (09:12)
[2019-05-24] MEDS: predniSONE 20 MG TAB PO SCH (09:12)
[2019-05-24] MEDS: cloNIDine HCL 0.1 MG TAB PO SCH (09:12)
[2019-05-24] MEDS: CLOPIDOGREL 75 MG TAB PO SCH (09:12)
[2019-05-24] MEDS: DOCUSATE 100 MG CAP PO SCH (09:12)
[2019-05-24] MEDS: LISINOPRIL 20 MG TAB PO SCH (09:12)
[2019-05-24] MEDS: HYDROCHLOROTHIAZIDE 25 MG TAB PO SCH (09:13)
[2019-05-24] MEDS: glipiZIDE 5 MG TAB PO SCH (09:13)
[2019-05-24] MEDS: FLUTICASONE 50MCG/SPRAY NASAL 16GM EA NOSTRIL SCH (09:13)
[2019-05-24] MEDS: AZITHROMYCIN 500 MG TAB PO SCH (09:13)
--- NOTE | 2019-05-24 10:40 | P.DS ---
Providers Date of admission: 05/14/19 10:39 Expected date of discharge: 05/24/19 Attending physician: Nenita Shelby Consults: 05/14/19 15:44 Consult Physician Routine Consulting Provider: Tressa Silva Consult Reason/Comments: shortness of breath Do you want consulting provider notified?: Yes 05/18/19 13:05 Consult Physician Routine Consulting Provider: Wu Jean Baptiste Consult Reason/Comments: questionable mass seen on renal ultrasound Do you want consulting provider notified?: Yes Primary care physician: Nenita Afsaneh [facility] Course: Discharge diagnosis #1 possible pneumonia chest x-rays showing perihilar infiltrate and bilateral basilar infiltrate. Patient completed antibiotic treatment during her hospitalization Sputum culture normal respiratory alexsandra. Pulmonary following. Pro-calcitonin level normal at 0.05. #2 acute exacerbation of moderate persistent chronic bronchial asthma continue DuoNeb updrafts, Pulmicort and Perforomist. We'll add Singulair due to an ALLERGY component of her asthma. Patient was switched to oral prednisone #3 underlying history of hypertension #4 underlying history of diabetes mellitus type 2. Elevated blood sugars secondary to steroids. Hemoglobin A1c 7.7. Uncontrolled blood sugars secondary to steroids #5 underlying history of hyperlipidemia #6 essential hypertension: Patient's blood pressures are better controlled today. Clonidine was added yesterday. Also note Norvasc and hydrochlorothiazide added during this admission. #7 recent sinus infection and patient still having some sinus congestion will resume her Flonase nasal spray. Add Claritin #8 morbid obesity 9. Constipation improving with Colace and MiraLAX 10. CT chest shows Bibasilar areas of atelectasis or scarring 1.1 cm nodular density in the inferior lingula could represent a nodular area of atelectasis or scarring 3 month follow-up CT recommended to reassess. Pulmonary arterial hypertension and CAD. Pulmonary is following. continue incentive spirometry for atelectasis. 11. Kidney lesion ruled out. CT of abdomen and pelvis completed showing no suspicious solid or cystic renal mass. Moderate proximal colonic fecal stasis. No bowel obstruction. Calcified fibroid uterus. 12. Constipation: Resolved Hospital course Nancy Celestin is a 73-year-old female who presented to [facility] emergency Department with chief complaint of shortness of breath. Patient states it started 2 days ago with a runny nose and congestion. Patient started having shortness of breath which worsened over the last 2 days she had occasional cough patient has a known history of asthma, she tried to take nebulizer treatment at home with minimal improvement she decided to come to emergency room, she was evaluated in emergency room that and had evidence of pneumonia she was started on IV antibiotic and was admitted to medical floor pulmonary consultation was requested. On 05/15/2019 patient was seen and examined on the medical floor she is alert and oriented 3 in no apparent distress there is no fever or chills no headache or dizziness no chest pain no shortness of breath she is still complaining of nasal congestion and cough with yellow-green sputum production there is no nausea or vomiting no abdominal pain no diarrhea and no urinary symptoms 05/16/2019 patient reports that her breathing is doing better. She still having some wheezing when walking back from the bathroom. Blood pressures elevated at 176/81 she's receiving IV hydralazine. Patient was started on Norvasc during this admission. Also will add hydrochlorothiazide 25 mg daily. Patient denies any chest pain, nausea or vomiting, or urinary symptoms. 05/17/2019 patient complaining of wheezing throughout the night. She required extra breathing treatment. Hydrochlorothiazide was added yesterday. Awaiting repeat blood pressure after medications given this morning. Blood pressure. This morning was 194/82. Patient is complaining of watery eyes and nasal congestion. Flonase started yesterday. Also will start Claritin. She is complaining of constipation is been about 3-4 days since last bowel movement. Colace and MiraLAX ordered. She refused lactulose at this time. She denies any chest pain or nausea and vomiting. On 05/18/2019 patient is alert and oriented 3. Patient reports some improvement with her shortness of breath but still having significant wheezing. Blood pressure slightly improved yesterday after addition of hydrochlorothiazide will continue to monitor. Patient remains on IV Solu-Medrol. This time patient denies chest pain. Patient denies any nausea vomiting or diarrhea. Patient denies any urinary burning or frequency. 05/19/2019 patient is still wheezing. She is not complaining of shortness of breath. Still remaining on IV steroids. Discussed with pulmonary nurse practitioner. Patient's blood sugars are elevated due to the steroids. She is requiring extra insulin. We'll add Lantus 10 units daily. She's had blood sugars in the 300s. Last blood sugar 254. Patient seen by urology regarding questionable renal mass. They're recommending a computed tomography scan of the abdomen with and without IV contrast in a couple of days due to her recent computed tomography scan of the chest. Patient's blood pressures are still elevated this morning 164/73. Awaiting repeat blood pressure after medications given. Patient denies any chest pain. Reports having bowel movements. Denies any difficulty urinating. 05/20/2019 patient is feeling better today. Pulmonary service had increased the Solu-Medrol to 60 IV every 8 hours. Patient is still wheezing, especially after activity. She was able to ambulate in the hallway. Pulmonary has cleared her for discharge. Patient does not feel quite ready for discharge. Discussed with pulmonary service and will be adding Singulair to her medication regimen. Patient also complaining of constipation we'll give lactulose. Awaiting 2-D echo results. Blood pressure 155/71 this morning. Blood sugar 267 she was received extra insulin. Patient denies any chest pain. Denies any nausea vomiting or abdominal pain. Denies any burning with urination. On 05/22/2019 patient is still wheezing. She is not complaining of shortness of breath. She is now on oral steroids, she feels worse today she is having worse wheezing and shortness of breath. Otherwise she denies any complaints there is no fever or chills no headache no dizziness no chest pain no nausea or vomiting no abdominal pain no diarrhea and no urinary symptoms 05/23/2019 patient reports that she still having some wheezing. She does not feel quite ready for discharge. Pulmonary has cleared her. She is on oral prednisone. She reports that she is still feeling fairly constipated. Had small BM yesterday. She denies any chest pain. Denies any nausea or vomiting. Denies any severe shortness of breath. Denies any burning with urination. Echo shows an EF of 60-65% mild left ventricular hypertrophy and mild aortic stenosis, moderate mitral annular calcification present, mild pulmonary hypertension, trace mitral regurgitation, mild tricuspid regurgitation and mild mitral stenosis 05/24/2019 patient's shortness of breath and wheezing have improved greatly. Pulmonary has cleared her for discharge. History for asthma exacerbation during this hospitalization. Also concerns initially for possible pneumonia. She completed antibiotic treatment during her hospital station. Patient is requiring oxygen with IV steroids yesterday. Her lungs are showing improvement. There is still some mild wheezing. 2 continue prednisone taper over the next 2 weeks. She'll follow-up with pulmonary service in 1 week. Also during his hospital station patient's blood pressures were uncontrolled and required the addition of Norvasc and hydrochlorothiazide and clonidine. Blood pressures have shown improvement. She did have one blood pressure of 108/56 last night therefore the clonidine with to be decreased from 3 times a day to twice a day. We'll have patient check her blood pressures at home and record. Patient will follow up with Dr. Shelby in 3 days to review her blood pressures. Also note that blood sugars were elevated during this admission due to steroids. She did require the addition of Lantus to help control blood sugars. With the di scontinuing of the IV steroids and starting her on oral prednisone blood sugars have shown improvement. Kidney lesion was ruled out during this admission. She did have some abnormality on the CT of the chest and will need a follow-up in 3 months and follow-up with pulmonary service at that time regarding a 1.1 cm nodular density in the inferior lingula. Patient's symptoms have improved she is medically stable for discharge. Please refer to chart for any further details. I performed an examination of the patient and discussed their management with the physician Oncology Transplant Network Manager. I have reviewed the Physician Oncology Transplant Network Manager's notes and agree with the documented findings and plan of care Patient Condition at Discharge: Stable Plan - Discharge Summary New Discharge Prescriptions: New cloNIDine HCL [Catapres] 0.1 mg PO BID #60 tab Ipratropium-Albuterol Nebulize [Duoneb 0.5 mg-3 mg/3 ml Soln] 3 ml INHALATION QID #1 box Fluticasone Nasal [place] [Flonase Nasal Gar[place]] 2 spray EA NOSTRIL DAILY #1 bottle Hydrochlorothiazide [Hydrodiuril] 25 mg PO DAILY #30 tab amLODIPine [Norvasc] 5 mg PO DAILY #30 tab Montelukast [Singulair] 10 mg PO HS #30 tab predniSONE 10 mg PO DIRECTED #42 tab Continue Cholecalciferol [Vitamin D3 (25 Mcg = 1000 Iu)] 1,000 unit PO DAILY metFORMIN HCL 500 mg PO DAILY glipiZIDE [Glucotrol] 5 mg PO AC-BRKFST Metoprolol Succinate (ER) [Toprol XL] 25 mg PO DAILY Magnesium Oxide [Magox 400] 400 mg PO DAILY Lisinopril 40 mg PO DAILY Gabapentin [Neurontin] 300 mg PO TID@0700,1500,2300 Ezetimibe [Zetia] 10 mg PO HS Ubidecarenone [Co Q-10] 100 mg PO MOWEFR Clopidogrel [Plavix] 75 mg PO DAILY Discharge Medication List Cholecalciferol [Vitamin D3 (25 Mcg = 1000 Iu)] 1,000 unit PO DAILY 05/14/19 [History] Clopidogrel [Plavix] 75 mg PO DAILY 05/14/19 [History] Ezetimibe [Zetia] 10 mg PO HS 05/14/19 [History] Gabapentin [Neurontin] 300 mg PO TID@0700,1500,2300 05/14/19 [History] Lisinopril 40 mg PO DAILY 05/14/19 [History] Magnesium Oxide [Magox 400] 400 mg PO DAILY 05/14/19 [History] Metoprolol Succinate (ER) [Toprol XL] 25 mg PO DAILY 05/14/19 [History] Ubidecarenone [Co Q-10] 100 mg PO MOWEFR 05/14/19 [History] glipiZIDE [Glucotrol] 5 mg PO AC-BRKFST 05/14/19 [History] metFORMIN HCL 500 mg PO DAILY 05/14/19 [History] Fluticasone Nasal [place] [Flonase Nasal [place]] 2 spray EA NOSTRIL DAILY #1 bottle 05/24/19 [Rx] Hydrochlorothiazide [Hydrodiuril] 25 mg PO DAILY #30 tab 05/24/19 [Rx] Ipratropium-Albuterol Nebulize [Duoneb 0.5 mg-3 mg/3 ml Soln] 3 ml INHALATION QID #1 box 05/24/19 [Rx] Montelukast [Singulair] 10 mg PO HS #30 tab 05/24/19 [Rx] amLODIPine [Norvasc] 5 mg PO DAILY #30 tab 05/24/19 [Rx] cloNIDine HCL [Catapres] 0.1 mg PO BID #60 tab 05/24/19 [Rx] predniSONE 10 mg PO DIRECTED #42 tab 05/24/19 [Rx] Follow up Appointment(s)/Referral(s): Nenita Shelby MD [Primary Care Provider] - 3 Days Activity/Diet/Wound Care/Special Instructions: Diet: diabetic, cardiac Activity: as tolerated Discharge Disposition: HOME SELF-CARE
[2019-05-24 10:57] LABS: Glucose,Whole Blood 112 mg/dL (75-99)
[2019-05-24 11:16] VITALS: PULSE 76
--- NOTE | 2019-05-24 11:33 | P.PN ---
Subjective Progress Note Date: 05/24/19 Principal diagnosis: Exacerbation of moderate persistent chronic bronchial asthma This is 73-year-old white female patient of Dr. Shelby, with past medical history of moderately persistent bronchial asthma, who was recently treated for a sinus infection with a course of antibiotics, and patient finished it on May 05. She stated her symptoms did improve after that, however on she was out with her friend, and she started getting watery eyes, increased nasal drainage which was clear, increased sinus congestion. She returned home her chest was feeling tight, she was having difficulty breathing. She took her nebulized bronchodilator, and her symptoms became worse, and she came into the hospital on 05/14/2019 to the emergency department. Patient states her symptoms usually are well-controlled other than during the weather change, with high humidity and hot weather. Patient also has ALLERGIES to pollen, dust and ragweed. Chest x-ray was obtained showing basilar atelectasis or infiltrates with tiny effusions, patchy perihilar changes with interstitial pneumonitis or venous congestion. She denied fever or chills, no nausea vomiting or diarrhea. Labs did not show any leukocytosis, white blood cell count is 4.9, hemoglobin is 11.4, INR 0.9, serum sodium is 140, potassium is 3.4, chloride was 101, CO2 is 31, BUN is 14, creatinine 0.70, troponin was negative 1, proBNP was 492, influenza screen was negative. Patient was started on nebulized bronc hodilators, she was given a dose of IV Solu-Medrol 125 mg in the emergency department, empiric antibiotics in the form of Zithromax and Rocephin, and was admitted for further management. Other medical history includes diabetes mellitus, hypertension, hyperlipidemia, CVA/TIA, rheumatoid arthritis, and patient is under the care of Dr. Potter, on [facility] for maintenance. On 05/16/2019 patient seen in follow-up on medical surgical floor. She is moving better air today, sounds more wheezing and bronchospastic, with better air entry at lower bases of the lungs. She states she is breathing easier, although not back to normal, room air pulse ox is 97%, she is afebrile, hemodynamically patient is stable, as a positive for diffuse wheezes bilaterally, patient is on IV steroids at 40 mg every 12 hours, she is on Pulmicort and Perforomist, nebulized bronchodilators, Zithromax and Rocephin, urine culture has been sent, preliminary Gram stain showed few gram-positive cocci and peers in chains few gram-negative bacilli, final cultures pending. On 05/23/2019 patient is seen in follow-up on medical surgical floor. She is resting in bed, in no acute distress, lung sounds reveal minimal end expiratory wheezing on the right side, no rhonchi, rales. Patient states overall her breathing has improved since admission, occasional cough, no sputum production, no fever or chills, no chest pain or hemoptysis. Hemodynamically stable, today's labs have been reviewed, showing low blood cell count of 8.9, hemoglobin 12.3, platelet count is 292, sodium is 137, potassium is 4.1, chloride is 96, CO2 is 21, BUN is 49, creatinine 0.97. Patient is on Zithromax, nebulized bronchodilators, Pulmicort, Perforomist. Patient is now on oral steroids, and was given an additional dose of IV steroids for wheezing On 05/14/2019 patient seen in follow-up on medical surgical floor. Patient is doing well, continues to improve, breathing easier, lung sounds are much improved, last medical spastic, no significant cough or congestion, room air pulse ox is 99%, afebrile, hemodynamically stable, no acute events overnight, patient has been transitioned to oral prednisone, she is on nebulized bronchodilators. Sputum culture showed no growth. Today's labs have been reviewed, showing a white blood cell count of 11.7, hemoglobin of 12.4, platelet count is 312, serum sodium is 137, potassium is 4.5, chloride is 98, CO2 34, BUN is 50 creatinine 0.94. Objective - Vital Signs Vital signs: Vital Signs Temp 97.5 F L 05/24/19 05:00 Pulse 76 05/24/19 11:16 Resp 18 05/24/19 05:00 BP 148/66 05/24/19 05:00 Pulse Ox 99 05/24/19 05:00 Intake & Output 05/23/19 05/24/19 05/24/19 18:59 06:59 18:59 Intake Total 590 1800 Balance 590 1800 Intake: Oral 590 1800 Other: Voiding Method Toilet Toilet # Voids 2 4 # Bowel Movements 1 - Exam GENERAL EXAM: Alert, pleasant 73-year-old obese -[place] female, comfortable in no apparent distress. HEAD: Normocephalic/atraumatic. EYES: Normal reaction of pupils, equal size. Conjunctiva pink, sclera white. NOSE: Clear with pink turbinates. THROAT: No erythema or exudates. NECK: No masses, no JVD, no thyroid enlargement, no adenopathy. CHEST: No chest wall deformity. Symmetrical expansion. LUNGS: Equal air entry with diminished breath sounds, with end expiratory wheezes CVS: Regular rate and rhythm, normal S1 and S2, no gallops, no murmurs, no rubs ABDOMEN: Soft, nontender. No hepatosplenomegaly, normal bowel sounds, no guarding or rigidity. EXTREMITIES: No clubbing, no edema, no cyanosis, 2+ pulses and upper and lower extremities. MUSCULOSKELETAL: Muscle strength and tone normal. SPINE: No scoliosis or deformity SKIN: No rashes CENTRAL NERVOUS SYSTEM: Alert and oriented -3. No focal deficits, tone is normal in all 4 extremities. PSYCHIATRIC: Alert and oriented -3. Appropriate affect. Intact judgment and insight. - Labs CBC & Chem 7: 05/24/19 08:07 05/24/19 08:07 Labs: Abnormal Lab Results - Last 24 Hours (Table) 05/23/19 05/23/19 05/23/19 Range/Units 11:58 16:52 17:43 WBC (3.8-10.6) k/uL MCHC (31.0-37.0) g/dL Neutrophils # (1.3-7.7) k/uL Carbon Dioxide (22-30) mmol/L BUN (7-17) mg/dL POC Glucose (mg/dL) 188 H 465 H 506 H (75-99) mg/dL 05/23/19 05/23/19 05/24/19 Range/Units 18:08 19:59 02:02 WBC (3.8-10.6) k/uL MCHC (31.0-37.0) g/dL Neutrophils # (1.3-7.7) k/uL Carbon Dioxide (22-30) mmol/L BUN (7-17) mg/dL POC Glucose (mg/dL) 447 H 304 H 106 H (75-99) mg/dL 0705/24/19 05/24/19 Range/Units 06:53 08:07 08:07 WBC 11.7 H (3.8-10.6) k/uL MCHC 30.8 L (31.0-37.0) g/dL Neutrophils # 7.8 H (1.3-7.7) k/uL Carbon Dioxide 34 H (22-30) mmol/L BUN 50 H (7-17) mg/dL POC Glucose (mg/dL) 106 H (75-99) mg/dL 05/24/19 Range/Units 10:54 WBC (3.8-10.6) k/uL MCHC (31.0-37.0) g/dL Neutrophils # (1.3-7.7) k/uL Carbon Dioxide (22-30) mmol/L BUN (7-17) mg/dL POC Glucose (mg/dL) 112 H (75-99) mg/dL Assessment and Plan Plan: Assessment: #1. Acute exacerbation of moderate persistent chronic bronchial asthma, chest x-ray showed basilar atelectasis, with tiny pleural effusions, and pulmonary arterial hypertension. Triggers include change in weather, pollen, dust and ragweed #2. Recent sinus infection, and patient was treated with outpatient course of oral antibiotics completed on May 05 #3. Steroid-induced hyperglycemia #4. Diabetes mellitus type 2 #5. Hypertension #6. Hyperlipidemia #7. Morbid obesity #8. Mass on the left kidney without hydronephrosis, equivocal for neoplasm, being followed by urology Plan: Patient is stable from pulmonary perspective, breathing is improving, less progress spastic, occasional cough, no significant sputum production, sputum culture showed no growth, no fever or chills, vital signs are stable, stable for discharge from pulmonary perspective, follow up with Dr. Arnett in the office in 7-10 days. I performed a history & physical examination of the patient and discussed their management with my nurse practitioner, Tisha Barnes. I reviewed the nurse practitioner's note and agree with the documented findings and plan of care. Lung sounds are positive for diffuse wheezes throughout the lung ennis. The findings and the impression was discussed with the patient. I attest to the documentation by the nurse practitioner. Time with Patient: Less than 30
== END 2019-05-24 14:45 | disposition home health service (06) | DRG 202 ==
LOC: EC 08:57 → 3NMEDONC 10:39
PROVIDERS: ADMIT Internal Medicine; ATTEND Internal Medicine
DX: J45.41 Moderate persistent asthma with (acute) exacerbation (principal); J18.9 Pneumonia, unspecified organism; J96.01 Acute respiratory failure with hypoxia; J98.11 Atelectasis; Z68.41 Body mass index [BMI] 40.0-44.9, adult; E11.65 Type 2 diabetes mellitus with hyperglycemia; I27.20 Pulmonary hypertension, unspecified; E66.01 Morbid (severe) obesity due to excess calories; I08.2 Rheumatic disorders of both aortic and tricuspid valves; I11.9 Hypertensive heart disease without heart failure; M06.9 Rheumatoid arthritis, unspecified; D25.9 Leiomyoma of uterus, unspecified; E78.5 Hyperlipidemia, unspecified; G89.29 Other chronic pain; I25.10 Atherosclerotic heart disease of native coronary artery without angina pectoris; K59.00 Constipation, unspecified; K80.20 Calculus of gallbladder without cholecystitis without obstruction; N28.89 Other specified disorders of kidney and ureter; T38.0X5A Adverse effect of glucocorticoids and synthetic analogues, initial encounter; M54.5 Low back pain; Z79.02 Long term (current) use of antithrombotics/antiplatelets; Z79.899 Other long term (current) drug therapy; Z79.84 Long term (current) use of oral hypoglycemic drugs; Z88.8 Allergy status to other drugs, medicaments and biological substances; Z86.73 Personal history of transient ischemic attack (TIA), and cerebral infarction without residual deficits; Z90.49 Acquired absence of other specified parts of digestive tract; Z98.51 Tubal ligation status; Z80.0 Family history of malignant neoplasm of digestive organs; Z82.49 Family history of ischemic heart disease and other diseases of the circulatory system; Z82.61 Family history of arthritis
CPT/HCPCS: 36415; 71046; 71260; 74177; 76770; 80048; 80053; 83036; 83735; 83880; 84145; 84484; 85025; 85610; 85730; 87070; 87205; 87502; 93005; 93306; 94640; 94760; 96374; 99285

== ENCOUNTER 2019-06-13 19:01 | Emergency (ER) | payer MEDICARE ==
[2019-06-13] MEDS ORDERED: SODIUM CHLORIDE 0.9% 1,000 ML IV STA (19:11)
[2019-06-13] MEDS ORDERED: MECLIZINE 12.5 MG TAB PO STA (19:12)
--- NOTE | 2019-06-13 19:14 | ED ---
General Adult HPI - General Stated complaint: DIZZINESS Time Seen by Provider: 06/13/19 19:02 Source: patient, EMS, RN notes reviewed Mode of arrival: EMS Limitations: no limitations - History of Present Illness Initial comments: Patient is a pleasant 73-year-old female presenting to the emergency Department with complaints of dizziness. Onset of symptoms was a half an hour prior to arrival. Symptoms are mild at this time but not completely resolved. Patient does states dizziness was described as lightheadedness. Patient did not have "a spinning type sensation. Patient states she does have a history of vertigo previously and previously has taken meclizine and is receptive to a dose at this time. Patient denies any weakness or isolated area of weakness. No confusion or speech problems. No chest pain or dyspnea. No abdominal pain. Patient did not attempt to walk if she was in her wheelchair when this happened and does not normally walk much. - Related Data Home Medications Medication Instructions Recorded Confirmed Cholecalciferol [Vitamin D3 (25 1,000 unit PO DAILY 05/14/19 06/13/19 Mcg = 1000 Iu)] Clopidogrel [Plavix] 75 mg PO DAILY 05/14/19 06/13/19 Ezetimibe [Zetia] 10 mg PO HS 05/14/19 06/13/19 Gabapentin [Neurontin] 300 mg PO TID@0700,1500,2300 05/14/19 06/13/19 Lisinopril 40 mg PO DAILY 05/14/19 06/13/19 Magnesium Oxide [Magox 400] 400 mg PO DAILY 05/14/19 06/13/19 Metoprolol Succinate (ER) [Toprol 25 mg PO DAILY 05/14/19 06/13/19 XL] Ubidecarenone [Co Q-10] 100 mg PO MOWEFR 05/14/19 06/13/19 glipiZIDE [Glucotrol] 5 mg PO AC-BRKFST 05/14/19 06/13/19 metFORMIN HCL 500 mg PO DAILY 05/14/19 06/13/19 Amoxicillin 500 mg PO Q8H 06/13/19 06/13/19 Ipratropium-Albuterol Nebulize 3 ml INHALATION RT-QID PRN 06/13/19 06/13/19 [Duoneb 0.5 mg-3 mg/3 ml Soln] Previous Rx's Medication Instructions Recorded Fluticasone Nasal [place] [Flonase 2 spray EA NOSTRIL DAILY #1 bottle 05/24/19 Nasal [place]] Hydrochlorothiazide [Hydrodiuril] 25 mg PO DAILY #30 tab 05/24/19 Montelukast [Singulair] 10 mg PO HS #30 tab 05/24/19 amLODIPine [Norvasc] 5 mg PO DAILY #30 tab 05/24/19 cloNIDine HCL [Catapres] 0.1 mg PO BID #60 tab 05/24/19 Allergies Allergy/AdvReac Type Severity Reaction Status Date / Time atorvastatin [From Lipitor] AdvReac CRAMPS Verified 06/13/19 20:34 Review of Systems ROS Statement: Those systems with pertinent positive or pertinent negative responses have been documented in the HPI. ROS Other: All systems not noted in ROS Statement are negative. Constitutional: Denies: fever Eyes: Denies: eye pain ENT: Denies: ear pain Respiratory: Denies: cough Cardiovascular: Denies: chest pain Endocrine: Denies: fatigue Gastrointestinal: Denies: abdominal pain Genitourinary: Denies: dysuria Musculoskeletal: Denies: back pain Skin: Denies: rash Neurological: Reports: as per HPI. Denies: headache, weakness, numbness, paresthesias, confusion Past Medical History Past Medical History: Asthma, CVA/TIA, Diabetes Mellitus, Hyperlipidemia, Hypertension Additional Past Medical History / Comment(s): rheumatoid arthritis History of Any Multi-Drug Resistant Organisms: None Reported Past Surgical History: Appendectomy, Tubal Ligation Additional Past Surgical History / Comment(s): Colonoscopy Past Anesthesia/Blood Transfusion Reactions: No Reported Reaction Past Psychological History: No Psychological Hx Reported Smoking Status: Never smoker Past Alcohol Use History: None Reported Past Drug Use History: None Reported - Past Family History Father Family Medical History: Cancer, Congestive Heart Failure (CHF) Additional Family Medical History / Comment(s): colon cancer Mother Family Medical History: Rheumatoid Arthritis (RA) General Exam Limitations: no limitations General appearance: alert, in no apparent distress Head exam: Present: atraumatic, normocephalic Eye exam: Present: normal appearance, PERRL, EOMI. Absent: nystagmus ENT exam: Present: normal oropharynx Neck exam: Present: normal inspection Respiratory exam: Present: normal lung sounds bilaterally Cardiovascular Exam: Present: regular rate, normal rhythm GI/Abdominal exam: Present: soft. Absent: tenderness Extremities exam: Present: normal inspection. Absent: pedal edema, calf tenderness Neurological exam: Present: alert, oriented X3, CN II-XII intact. Absent: motor sensory deficit Expanded Patient oriented to: Present: person, place, time Speech: Present: fluid speech Cranial nerves: EOM's Intact: Normal Motor strength exam: RUE: 5, LUE: 5, RLE: 5, LLE: 5 Eye Response: (4) open spontaneously Motor Response: (6) obeys commands Verbal Response: (5) oriented Psychiatric exam: Present: normal affect, normal mood Skin exam: Present: normal color Course Vital Signs 06/13/19 06/13/19 19:15 20:38 Temperature 99.9 F H Pulse Rate 84 84 Respiratory 20 20 Rate Blood Pressure 114/58 123/76 O2 Sat by Pulse 96 100 Oximetry EKG Findings - EKG Comments: EKG Findings:: Normal sinus rhythm 82. SC 142. QRS 88. QT 394. QTC 460. Left axis. LVH criteria. No acute ST change Medical Decision Making - Medical Decision Making Patient reevaluated and resting comfortably in bed, symptom-free. Patient updated on results and need for follow-up. - Lab Data Result diagrams: 06/13/19 20:21 06/13/19 20:16 Lab Results 06/13/19 06/13/19 06/13/19 Range/Units 20:16 20:21 20:21 WBC 5.6 (3.8-10.6) k/uL RBC 4.43 (3.80-5.40) m/uL Hgb 12.6 (11.4-16.0) gm/dL Hct 39.1 (34.0-46.0) % MCV 88.1 (80.0-100.0) fL MCH 28.5 (25.0-35.0) pg MCHC 32.3 (31.0-37.0) g/dL RDW 13.3 (11.5-15.5) % Plt Count 190 (150-450) k/uL Neutrophils % 49 % Lymphocytes % 41 % Monocytes % 6 % Eosinophils % 2 % Basophils % 1 % Neutrophils # 2.7 (1.3-7.7) k/uL Lymphocytes # 2.3 (1.0-4.8) k/uL Monocytes # 0.3 (0-1.0) k/uL Eosinophils # 0.1 (0-0.7) k/uL Basophils # 0.1 (0-0.2) k/uL PT 9.4 (9.0-12.0) sec INR 0.9 (<1.2) APTT 20.3 L (22.0-30.0) sec Sodium 138 (137-145) mmol/L Potassium 4.0 (3.5-5.1) mmol/L Chloride 100 (98-107) mmol/L Carbon Dioxide 29 (22-30) mmol/L Anion Gap 9 mmol/L BUN 26 H (7-17) mg/dL Creatinine 0.96 (0.52-1.04) mg/dL Est GFR (CKD-EPI)AfAm 67 (>60 ml/min/1.73 sqM) Est GFR (CKD-EPI)NonAf 58 (>60 ml/min/1.73 sqM) Glucose 176 H (74-99) mg/dL Calcium 8.8 (8.4-10.2) mg/dL Total Bilirubin 0.4 (0.2-1.3) mg/dL AST 27 (14-36) U/L ALT 27 (9-52) U/L Alkaline Phosphatase 73 (38-126) U/L Total Protein 6.6 (6.3-8.2) g/dL Albumin 3.6 (3.5-5.0) g/dL Urine Color Urine Appearance (Clear) Urine pH (5.0-8.0) Ur Specific [place] (1.001-1.035) Urine Protein (Negative) Urine Glucose (UA) (Negative) Urine Ketones (Negative) Urine Blood (Negative) Urine Nitrite (Negative) Urine Bilirubin (Negative) Urine Urobilinogen (<2.0) mg/dL Ur Leukocyte Esterase (Negative) Urine RBC (0-5) /hpf Urine WBC (0-5) /hpf Ur Squamous Epith Cells (0-4) /hpf Urine Mucus (None) /hpf 06/13/19 Range/Units 20:30 WBC (3.8-10.6) k/uL RBC (3.80-5.40) m/uL Hgb (11.4-16.0) gm/dL Hct (34.0-46.0) % MCV (80.0-100.0) fL MCH (25.0-35.0) pg MCHC (31.0-37.0) g/dL RDW (11.5-15.5) % Plt Count (150-450) k/uL Neutrophils % % Lymphocytes % % Monocytes % % Eosinophils % % Basophils % % Neutrophils # (1.3-7.7) k/uL Lymphocytes # (1.0-4.8) k/uL Monocytes # (0-1.0) k/uL Eosinophils # (0-0.7) k/uL Basophils # (0-0.2) k/uL PT (9.0-12.0) sec INR (<1.2) APTT (22.0-30.0) sec Sodium (137-145) mmol/L Potassium (3.5-5.1) mmol/L Chloride (98-107) mmol/L Carbon Dioxide (22-30) mmol/L Anion Gap mmol/L BUN (7-17) mg/dL Creatinine (0.52-1.04) mg/dL Est GFR (CKD-EPI)AfAm (>60 ml/min/1.73 sqM) Est GFR (CKD-EPI)NonAf (>60 ml/min/1.73 sqM) Glucose (74-99) mg/dL Calcium (8.4-10.2) mg/dL Total Bilirubin (0.2-1.3) mg/dL AST (14-36) U/L ALT (9-52) U/L Alkaline Phosphatase (38-126) U/L Total Protein (6.3-8.2) g/dL Albumin (3.5-5.0) g/dL Urine Color Yellow Urine Appearance Clear (Clear) Urine pH 6.0 (5.0-8.0) Ur Specific [place] 1.016 (1.001-1.035) Urine Protein Trace H (Negative) Urine Glucose (UA) 3+ H (Negative) Urine Ketones Negative (Negative) Urine Blood Negative (Negative) Urine Nitrite Negative (Negative) Urine Bilirubin Negative (Negative) Urine Urobilinogen <2.0 (<2.0) mg/dL Ur Leukocyte Esterase Moderate H (Negative) Urine RBC 14 H (0-5) /hpf Urine WBC 8 H (0-5) /hpf Ur Squamous Epith Cells 1 (0-4) /hpf Urine Mucus Rare H (None) /hpf - Radiology Data Radiology results: report reviewed (ET scan the brain shows no acute process), image reviewed (Chest x-ray shows no acute process) Disposition Clinical Impression: Dizziness Disposition: HOME SELF-CARE Condition: Stable Instructions (If sedation given, give patient instructions): Dizziness (ED) Additional Instructions: Please follow-up with primary care physician in the next day or 2 for recheck. Return for weakness, confusion, uncontrolled dizziness, fevers, worsening symptoms or other concerns. Use your meclizine as needed. Is patient prescribed a controlled substance at d/c from ED?: No Referrals: Nenita Shelby MD [Primary Care Provider] - 1-2 days Time of Disposition: 21:10
--- NOTE | 2019-06-13 20:17 | CT ---
EXAMINATION: CT brain wo con DATE AND TIME: 06/13/2019 8:00 PM CLINICAL INDICATION: PHH; Vertigo TECHNIQUE: Standard departmental protocol.; 1133.4; COMPARISON: None. FINDINGS: The calvarium is intact. There is no intracranial hemorrhage. There is no intracranial mass or mass effect. No definite new intra-axial or extra-axial attenuation defect. The paranasal sinuses, middle ear cavities, and mastoid sinus air cells are clear. The orbits are unremarkable. IMPRESSION: NO ACUTE PROCESS.
--- NOTE | 2019-06-13 20:20 | XR ---
EXAMINATION: XR chest 2V DATE AND TIME: 06/13/2019 7:45 PM CLINICAL INDICATION: PHH; Weakness TECHNIQUE: Departmental protocol COMPARISON: 09/15/2019 FINDINGS: The lungs are clear. The pleural spaces are negative. The cardiac silhouette is borderline enlarged. The remainder of the mediastinal silhouette is unremar kable. The skeletal structures and soft tissues are negative for acute findings. IMPRESSION: NO ACUTE PROCESS.
[2019-06-13 20:34] LABS: Basophils # (A) 0.1 k/uL (0-0.2); Basophils % (A) 1 %; Eosinophils # (A) 0.1 k/uL (0-0.7); Eosinophils % (A) 2 %; HCT 39.1 % (34.0-46.0); HGB 12.6 gm/dL (11.4-16.0); Lymphocytes # (A) 2.3 k/uL (1.0-4.8); Lymphocytes % (A) 41 %; MCH 28.5 pg (25.0-35.0); MCHC 32.3 g/dL (31.0-37.0); MCV 88.1 fL (80.0-100.0); Mean Platelet Volume 7.5; Monocytes # (A) 0.3 k/uL (0-1.0); Monocytes % (A) 6 %; Neutrophils # (A) 2.7 k/uL (1.3-7.7); Neutrophils % (A) 49 %; Platelet Count 190 k/uL (150-450); RBC 4.43 m/uL (3.80-5.40); RDW 13.3 % (11.5-15.5); WBC 5.6 k/uL (3.8-10.6)
[2019-06-13 20:43] LABS: Albumin 3.6 g/dL (3.5-5.0); Calcium 8.8 mg/dL (8.4-10.2); Total Bilirubin 0.4 mg/dL (0.2-1.3); Total Protein 6.6 g/dL (6.3-8.2)
[2019-06-13 20:49] LABS: INR 0.9 (<1.2); Prothrombin Time 9.4 sec (9.0-12.0)
[2019-06-13] MEDS ORDERED: ACETAMINOPHEN TAB 500 MG TAB PO STA (20:49)
[2019-06-13 20:51] LABS: Partial Thromboplastin Time 20.3 sec (22.0-30.0)
[2019-06-13 21:06] LABS: Appearance,Urine Clear (Clear); Bilirubin,Urine Negative (Negative); Blood,Urine Negative (Negative); Color,Urine Yellow; Glucose,Urine (UA) 3+ (Negative); Ketones,Urine Negative (Negative); Leukocyte Esterase,Urine Moderate (Negative); Mucus,Urine Rare /hpf; Nitrite,Urine Negative (Negative); Protein,Urine Trace (Negative); RBC,Urine 14 /hpf (0-5); Specific Gravity,Urine 1.016 (1.001-1.035); Squamous Epithelial Cell,Urine 1 /hpf (0-4); Urobilinogen,Urine <2.0 mg/dL (<2.0); WBC,Urine 8 /hpf (0-5)
[2019-06-13 21:47] VITALS: BP 122/58; PULSE 73; RESP 18; TEMP 98.6
== END 2019-06-13 21:56 | disposition home or self-care (01) ==
LOC: EC 19:01
DX: R42 Dizziness and giddiness (principal); E11.9 Type 2 diabetes mellitus without complications; E78.5 Hyperlipidemia, unspecified; I10 Essential (primary) hypertension; M06.9 Rheumatoid arthritis, unspecified; J45.909 Unspecified asthma, uncomplicated; Z79.02 Long term (current) use of antithrombotics/antiplatelets; Z79.84 Long term (current) use of oral hypoglycemic drugs; Z79.51 Long term (current) use of inhaled steroids; Z79.899 Other long term (current) drug therapy; Z88.8 Allergy status to other drugs, medicaments and biological substances; Z86.73 Personal history of transient ischemic attack (TIA), and cerebral infarction without residual deficits
CPT/HCPCS: 36415; 70450; 71046; 80053; 81001; 85025; 85610; 85730; 93005; 96360; 96361; 99285

== ENCOUNTER 2020-03-23 21:09 | Emergency (ER) | payer MEDICARE ==
--- NOTE | 2020-03-23 22:32 | ED ---
Neuro HPI - General Chief Complaint: Neuro Symptoms/Deficit Stated Complaint: Headache,dizziness Time Seen by Provider: 03/23/20 21:24 Source: patient, family, RN notes reviewed Mode of arrival: ambulatory Limitations: no limitations - History of Present Illness Is the patient presenting with stroke symptoms?: No Initial Comments: This is a 74-year-old female history of TIA in the past also history of vertigo who states that she had the onset 2 days ago of some dizziness and the feeling that she was following toward the left side. Is somewhat different than her previous episodes of vertigo neck station she states she had a left-sided sharp headache left frontal in nature and location nonradiating no blurry vision no focal weakness to her upper or lower extremities no difficulty with swallowing or speech. She has a fevers chills nausea vomiting sweats she has had some recent nosebleeds however she has not amount be her sinuses acting up - Related Data Home Medications: Home Medications Medication Instructions Recorded Confirmed Cholecalciferol [Vitamin D3 (25 1,000 unit PO DAILY 05/14/19 06/13/19 Mcg = 1000 Iu)] Clopidogrel [Plavix] 75 mg PO DAILY 05/14/19 06/13/19 Ezetimibe [Zetia] 10 mg PO HS 05/14/19 06/13/19 Gabapentin [Neurontin] 300 mg PO TID@0700,1500,2300 05/14/19 06/13/19 Lisinopril 40 mg PO DAILY 05/14/19 06/13/19 Magnesium Oxide [Magox 400] 400 mg PO DAILY 05/14/19 06/13/19 Metoprolol Succinate (ER) [Toprol 25 mg PO DAILY 05/14/19 06/13/19 XL] Ubidecarenone [Co Q-10] 100 mg PO MOWEFR 05/14/19 06/13/19 glipiZIDE [Glucotrol] 5 mg PO AC-BRKFST 05/14/19 06/13/19 metFORMIN HCL 500 mg PO DAILY 05/14/19 06/13/19 Amoxicillin 500 mg PO Q8H 06/13/19 06/13/19 Ipratropium-Albuterol Nebulize 3 ml INHALATION RT-QID PRN 06/13/19 06/13/19 [Duoneb 0.5 mg-3 mg/3 ml Soln] Previous Rx's Medication Instructions Recorded Fluticasone Nasal [place] [Flonase 2 spray EA NOSTRIL DAILY #1 bottle 05/24/19 Nasal [place]] Hydrochlorothiazide [Hydrodiuril] 25 mg PO DAILY #30 tab 05/24/19 Montelukast [Singulair] 10 mg PO HS #30 tab 05/24/19 amLODIPine [Norvasc] 5 mg PO DAILY #30 tab 05/24/19 cloNIDine HCL [Catapres] 0.1 mg PO BID #60 tab 05/24/19 Meclizine [Antivert] 25 mg PO TID #20 tab 03/24/20 Allergies/Adverse Reactions: Allergies Allergy/AdvReac Type Severity Reaction Status Date / Time atorvastatin [From Lipitor] AdvReac CRAMPS Verified 03/23/20 21:18 Review of Systems ROS Statement: Those systems with pertinent positive or pertinent negative responses have been documented in the HPI. ROS Other: All systems not noted in ROS Statement are negative. General Exam - General Exam Comments Initial Comments: This is a well-developed well-nourished awake alert oriented 3 female Limitations: no limitations General appearance: alert, in no apparent distress Head exam: Present: atraumatic, normocephalic, normal inspection Eye exam: Present: normal appearance, PERRL, EOMI. Absent: scleral icterus, c onjunctival injection, periorbital swelling ENT exam: Present: normal exam, mucous membranes moist, other (Some tenderness palpation and percussion over the left frontal sinus region) Neck exam: Present: normal inspection, full ROM, other (No stridor JVD bruits). Absent: tenderness, meningismus, lymphadenopathy Respiratory exam: Present: normal lung sounds bilaterally. Absent: respiratory distress, wheezes, rales, rhonchi, stridor Cardiovascular Exam: Present: regular rate, normal rhythm, normal heart sounds. Absent: systolic murmur, diastolic murmur, rubs, gallop, clicks GI/Abdominal exam: Present: soft, normal bowel sounds. Absent: distended, tenderness, guarding, rebound, rigid Extremities exam: Present: normal inspection, full ROM, normal capillary refill. Absent: tenderness, pedal edema, joint swelling, calf tenderness Back exam: Present: normal inspection Neurological exam: Present: alert, oriented X3, CN II-XII intact Psychiatric exam: Present: normal affect, normal mood Skin exam: Present: warm, dry, intact, normal color. Absent: rash Stroke MDM - Lab Data Result diagrams: 03/23/20 21:32 03/23/20 21:32 Lab Results 03/23/20 03/23/20 03/23/20 Range/Units 21:32 21:32 21:32 WBC 4.9 (3.8-10.6) k/uL RBC 4.40 (3.80-5.40) m/uL Hgb 12.0 (11.4-16.0) gm/dL Hct 39.0 (34.0-46.0) % MCV 88.7 (80.0-100.0) fL MCH 27.3 (25.0-35.0) pg MCHC 30.8 L (31.0-37.0) g/dL RDW 14.4 (11.5-15.5) % Plt Count 222 (150-450) k/uL Neutrophils % 44 % Lymphocytes % 42 % Monocytes % 6 % Eosinophils % 4 % Basophils % 1 % Neutrophils # 2.2 (1.3-7.7) k/uL Lymphocytes # 2.1 (1.0-4.8) k/uL Monocytes # 0.3 (0-1.0) k/uL Eosinophils # 0.2 (0-0.7) k/uL Basophils # 0.1 (0-0.2) k/uL PT 9.4 (9.0-12.0) sec INR 0.9 (<1.2) APTT 21.3 L (22.0-30.0) sec Sodium 139 (137-145) mmol/L Potassium 4.5 (3.5-5.1) mmol/L Chloride 100 (98-107) mmol/L Carbon Dioxide 31 H (22-30) mmol/L Anion Gap 8 mmol/L BUN 17 (7-17) mg/dL Creatinine 0.83 (0.52-1.04) mg/dL Est GFR (CKD-EPI)AfAm 80 (>60 ml/min/1.73 sqM) Est GFR (CKD-EPI)NonAf 69 (>60 ml/min/1.73 sqM) Glucose 128 H (74-99) mg/dL Calcium 9.3 (8.4-10.2) mg/dL Total Bilirubin 0.5 (0.2-1.3) mg/dL AST 24 (14-36) U/L ALT 15 (4-34) U/L Alkaline Phosphatase 105 (38-126) U/L Creatine Kinase 206 H (30-135) U/L Total Protein 8.1 (6.3-8.2) g/dL Albumin 3.9 (3.5-5.0) g/dL - NIH Stroke Scale 1a. Level of Consciousness: (0) alert 1b. LOC Questions: (0) answers correctly 1c. LOC Commands: (0) performs tasks correctly 2. Best Gaze: (0) normal 3. Visual: (0) no visual loss 4. Facial Palsy: (0) normal symmetrical movement 5a. Motor Arm Left: (0) no drift 5b. Motor Arm Right: (0) no drift 6a. Motor Leg Left: (0) no drift 6b. Motor Leg Right: (0) no drift 7. Limb Ataxia: (0) absent 8. Sensory: (0) normal 9. Best Language: (0) no aphasia 10. Dysarthria: (0) normal 11. Extinction/Inattention: (0) no abnormality - Medical Decision Making I did a long discussion with patient regarding the findings the symptoms to be going on for about 3 days we did discuss options she would like to go home and be treated with Antivert and see how things fair. We did discuss the option for admission or transfer she does not like that plan she will follow-up with Dr. Shelby in 2 days. Return if any problems we did discuss the slight possibility of a small CVA she does states she's 1 except that limited is more likely vertigo versus that she is again however where the daughter percent guarantee. She accepts that. - EKG Data -: EKG Interpreted by Me EKG shows normal: sinus rhythm (Sinus rhythm of 70. Interval 156 QRS 92 QT since QTC 450/486) Past Medical History Past Medical History: Asthma, CVA/TIA, Diabetes Mellitus, Hyperlipidemia, Hypertension Additional Past Medical History / Comment(s): rheumatoid arthritis History of Any Multi-Drug Resistant Organisms: None Reported Past Surgical History: Appendectomy, Tubal Ligation Additional Past Surgical History / Comment(s): Colonoscopy Past Anesthesia/Blood Transfusion Reactions: No Reported Reaction Past Psychological History: No Psychological Hx Reported Smoking Status: Never smoker Past Alcohol Use History: None Reported Past Drug Use History: None Reported - Past Family History Father Family Medical History: Cancer, Congestive Heart Failure (CHF) Additional Family Medical History / Comment(s): colon cancer Mother Family Medical History: Rheumatoid Arthritis (RA) Course Vital Signs 03/23/20 21:10 Temperature 97.9 F Pulse Rate 74 Respiratory 18 Rate Blood Pressure 182/104 O2 Sat by Pulse 98 Oximetry Disposition Clinical Impression: Benign paroxysmal vertigo Disposition: HOME SELF-CARE Condition: Good Instructions (If sedation given, give patient instructions): Vertigo (ED), Benign Paroxysmal Positional Vertigo (ED) Prescriptions: Meclizine [Antivert] 25 mg PO TID #20 tab Is patient prescribed a controlled substance at d/c from ED?: No Referrals: Nenita Shelby MD [Primary Care Provider] - 1-2 days
[2020-03-23 22:43] LABS: Basophils # (A) 0.1 k/uL (0-0.2); Basophils % (A) 1 %; Eosinophils # (A) 0.2 k/uL (0-0.7); Eosinophils % (A) 4 %; Lymphocytes # (A) 2.1 k/uL (1.0-4.8); Lymphocytes % (A) 42 %; MCH 27.3 pg (25.0-35.0); MCHC 30.8 g/dL (31.0-37.0); MCV 88.7 fL (80.0-100.0); Mean Platelet Volume 9.1; Monocytes # (A) 0.3 k/uL (0-1.0); Monocytes % (A) 6 %; Neutrophils # (A) 2.2 k/uL (1.3-7.7); Neutrophils % (A) 44 %; Platelet Count 222 k/uL (150-450); RDW 14.4 % (11.5-15.5); WBC 4.9 k/uL (3.8-10.6)
[2020-03-23 22:59] LABS: INR 0.9 (<1.2); Prothrombin Time 9.4 sec (9.0-12.0)
[2020-03-23 23:06] LABS: Partial Thromboplastin Time 21.3 sec (22.0-30.0)
--- NOTE | 2020-03-23 23:16 | CT ---
EXAMINATION TYPE: CT brain wo con for TPA DATE OF EXAM: 03/23/2020 COMPARISON: 06/13/2019 HISTORY: c/o sinus headache Dizziness CT DLP: combined DLP 789 mGycm Automated exposure control for dose reduction was used. Ventricles have normal size. There is no mass effect nor midline shift. There is no sign of intracran ial hemorrhage. The calvarium is intact. IMPRESSION: Negative unenhanced head CT scan. No change.
--- NOTE | 2020-03-23 23:18 | CT ---
EXAMINATION TYPE: CT sinus wo con DATE OF EXAM: 03/23/2020 COMPARISON: None HISTORY: c/o sinus headache CT DLP: combined DLP 789 mGycm Automated exposure control for dose reduction was used. There is fairly normal development and aeration of the paranasal sinuses. There is minimal mucosal th ickening at the floor of the maxillary sinuses. There is minimal mucosal thickening anterior ethmoid sinuses. Orbital margins are intact. There is no evidence of retro-orbital mass. Nasal bone is intact . Maxilla is intact. Mandibular ring is intact. There is normal aeration of the temporal bones. IMPRESSION: Minimal maxillary and anterior ethmoid sinusitis.
[2020-03-23 23:22] LABS: Albumin 3.9 g/dL (3.5-5.0); Calcium 9.3 mg/dL (8.4-10.2); Potassium 4.5 mmol/L (3.5-5.1); Total Bilirubin 0.5 mg/dL (0.2-1.3); Total Protein 8.1 g/dL (6.3-8.2)
--- NOTE | 2020-03-23 23:24 | XR ---
EXAMINATION TYPE: XR chest 2V DATE OF EXAM: 03/23/2020 COMPARISON: 06/13/2019 HISTORY: Altered mental status TECHNIQUE: 2 views FINDINGS: Heart is normal. Lungs are clear of infiltrate. There is no pleural effusion. Thoracic aort a is atheromatous. There are chest leads. IMPRESSION: No active cardiopulmonary disease. There is clearing of minimal infiltrate lateral left l [place] compared to old exam.
[2020-03-23] MEDS ORDERED: MECLIZINE 12.5 MG TAB PO STA (23:37)
[2020-03-24 00:33] VITALS: BP 182/87; PULSE 72; RESP 16; TEMP 98.2
== END 2020-03-24 00:37 | disposition home or self-care (01) ==
LOC: EC 21:09
DX: H81.12 Benign paroxysmal vertigo, left ear (principal); I10 Essential (primary) hypertension; E78.5 Hyperlipidemia, unspecified; J45.909 Unspecified asthma, uncomplicated; E11.9 Type 2 diabetes mellitus without complications; Z79.02 Long term (current) use of antithrombotics/antiplatelets; Z79.899 Other long term (current) drug therapy; Z79.84 Long term (current) use of oral hypoglycemic drugs; Z88.8 Allergy status to other drugs, medicaments and biological substances; Z86.73 Personal history of transient ischemic attack (TIA), and cerebral infarction without residual deficits
CPT/HCPCS: 36415; 70450; 70486; 71046; 80053; 82550; 84484; 85025; 85610; 85730; 93005; 99284

== ENCOUNTER 2020-06-14 21:32 | Emergency (ER) | payer MEDICARE ==
--- NOTE | 2020-06-14 22:50 | ED ---
Female Urogenital HPI - General Chief complaint: Urogenital Stated complaint: Painful urination Time Seen by Provider: 06/14/20 21:59 Source: patient Mode of arrival: wheelchair Limitations: no limitations - History of Present Illness Initial comments: This patient is 74-year-old woman presenting to be evaluated for which she believes is urinary tract infection. She states she has been having weeks of symptoms that included urinary frequency, urgency and dysuria. She also has had occasional episodes of incontinence. Patient states she had seen her primary physician, initially being placed on ciprofloxacin to treat urinary tract infection. She subsequently had the antibiotic changed to nitrofurantoin after the culture results head showed resistance to Cipro. She took one week of the nitrofurantoin, but states that the symptoms have not really resolved and after she finished that medicine symptoms seem to have intensified a bit. Patient denies fever or chills. No benito abdominal pain. No change in bowel movements. Over the course the past 1-2 days she believes that her rheumatoid arthritis may be starting to flare as she is having some increased fatigue and states she is having difficulty getting around the house. MD Complaint: dysuria -: days(s) Location: suprapubic Radiation: non-radiating Severity: mild Quality: dull Consistency: constant Improves with: none Worsens with: urination Associated Symptoms: dysuria - Related Data Home Medications Medication Instructions Recorded Confirmed Cholecalciferol [Vitamin D3 (25 1,000 unit PO DAILY 05/14/19 06/14/20 Mcg = 1000 Iu)] Clopidogrel [Plavix] 75 mg PO DAILY 05/14/19 06/14/20 Ezetimibe [Zetia] 10 mg PO HS 05/14/19 06/14/20 Magnesium Oxide [Magox 400] 400 mg PO DAILY 05/14/19 06/14/20 Metoprolol Succinate (ER) [Toprol 25 mg PO DAILY 05/14/19 06/14/20 XL] glipiZIDE [Glucotrol] 5 mg PO TID 05/14/19 06/14/20 lisinopriL 40 mg PO DAILY 05/14/19 06/14/20 metFORMIN HCL 500 mg PO DAILY 05/14/19 06/14/20 Albuterol Inhaler [Ventolin Hfa 1 puff INHALATION RT-QID PRN 06/14/20 06/14/20 Inhaler] Ergocalciferol [Vitamin D2] 50,000 unit PO TU 06/14/20 06/14/20 Tolterodine ER [Detrol LA] 4 mg PO DAILY 06/14/20 06/14/20 Previous Rx's Medication Instructions Recorded Montelukast [Singulair] 10 mg PO HS #30 tab 05/24/19 Cephalexin [Keflex] 500 mg PO Q6HR #28 cap 06/15/20 Allergies Allergy/AdvReac Type Severity Reaction Status Date / Time atorvastatin [From Lipitor] AdvReac CRAMPS Verified 06/14/20 23:45 Review of Systems ROS Statement: Those systems with pertinent positive or pertinent negative responses have been documented in the HPI. ROS Other: All systems not noted in ROS Statement are negative. Constitutional: Reports: weakness. Denies: fever, chills Respiratory: Denies: cough, dyspnea Cardiovascular: Denies: chest pain, palpitations Gastrointestinal: Denies: abdominal pain, nausea, vomiting, diarrhea, constipation Genitourinary: Reports: urgency, dysuria, frequency. Denies: hematuria Musculoskeletal: Denies: back pain Skin: Denies: rash Neurological: Denies: headache, weakness, numbness Past Medical History Past Medical History: Asthma, CVA/TIA, Diabetes Mellitus, Hyperlipidemia, Hypertension Additional Past Medical History / Comment(s): rheumatoid arthritis History of Any Multi-Drug Resistant Organisms: None Reported Past Surgical History: Appendectomy, Tubal Ligation Additional Past Surgical History / Comment(s): Colonoscopy Past Anesthesia/Blood Transfusion Reactions: No Reported Reaction Past Psychological History: No Psychological Hx Reported Smoking Status: Never smoker Past Alcohol Use History: None Reported Past Drug Use History: None Reported - Past Family History Father Family Medical History: Cancer, Congestive Heart Failure (CHF) Additional Family Medical History / Comment(s): colon cancer Mother Family Medical History: Rheumatoid Arthritis (RA) General Exam Limitations: no limitations General appearance: alert, in no apparent distress Head exam: Present: atraumatic, normocephalic Eye exam: Present: normal appearance. Absent: scleral icterus, conjunctival injection ENT exam: Present: normal oropharynx Respiratory exam: Present: normal lung sounds bilaterally. Absent: respiratory distress, wheezes, rales, rhonchi, stridor Cardiovascular Exam: Present: regular rate, normal rhythm, normal heart sounds. Absent: systolic murmur, diastolic murmur, rubs, gallop GI/Abdominal exam: Present: soft. Absent: distended, tenderness, guarding, rebound, rigid, mass Extremities exam: Present: normal inspection, normal capillary refill. Absent: pedal edema, calf tenderness Back exam: Present: normal inspection. Absent: CVA tenderness (R), CVA tenderness (L) Neurological exam: Present: alert Skin exam: Present: warm, dry, intact, normal color. Absent: rash Course Vital Signs 06/14/20 06/15/20 21:38 00:44 Temperature 98.5 F Pulse Rate 85 76 Respiratory 19 18 Rate Blood Pressure 159/89 189/70 O2 Sat by Pulse 99 97 Oximetry Medical Decision Making - Lab Data Result diagrams: 06/14/20 23:33 06/14/20 23:33 Lab Results 06/14/20 06/14/20 06/14/20 Range/Units 23:05 23:33 23:33 WBC 5.0 (3.8-10.6) k/uL RBC 3.89 (3.80-5.40) m/uL Hgb 10.8 L (11.4-16.0) gm/dL Hct 33.8 L (34.0-46.0) % MCV 87.1 (80.0-100.0) fL MCH 27.8 (25.0-35.0) pg MCHC 31.9 (31.0-37.0) g/dL RDW 13.2 (11.5-15.5) % Plt Count 231 (150-450) k/uL Neutrophils % 49 % Lymphocytes % 38 % Monocytes % 6 % Eosinophils % 4 % Basophils % 1 % Neutrophils # 2.5 (1.3-7.7) k/uL Lymphocytes # 1.9 (1.0-4.8) k/uL Monocytes # 0.3 (0-1.0) k/uL Eosinophils # 0.2 (0-0.7) k/uL Basophils # 0.1 (0-0.2) k/uL Sodium 137 (137-145) mmol/L Potassium 4.2 (3.5-5.1) mmol/L Chloride 100 (98-107) mmol/L Carbon Dioxide 30 (22-30) mmol/L Anion Gap 7 mmol/L BUN 23 H (7-17) mg/dL Creatinine 0.93 (0.52-1.04) mg/dL Est GFR (CKD-EPI)AfAm 70 (>60 ml/min/1.73 sqM) Est GFR (CKD-EPI)NonAf 60 (>60 ml/min/1.73 sqM) Glucose 132 H (74-99) mg/dL Calcium 9.1 (8.4-10.2) mg/dL Total Bilirubin 0.5 (0.2-1.3) mg/dL AST 21 (14-36) U/L ALT 11 (4-34) U/L Alkaline Phosphatase 98 (38-126) U/L C-Reactive Protein 13.7 H (<10.0) mg/L Total Protein 7.7 (6.3-8.2) g/dL Albumin 3.6 (3.5-5.0) g/dL Urine Color Yellow Urine Appearance Clear (Clear) Urine pH 6.0 (5.0-8.0) Ur Specific [place] 1.014 (1.001-1.035) Urine Protein 1+ H (Negative) Urine Glucose (UA) Negative (Negative) Urine Ketones Negative (Negative) Urine Blood Large H (Negative) Urine Nitrite Negative (Negative) Urine Bilirubin Negative (Negative) Urine Urobilinogen <2.0 (<2.0) mg/dL Ur Leukocyte Esterase Large H (Negative) Urine RBC 97 H (0-5) /hpf Urine WBC 35 H (0-5) /hpf Ur Squamous Epith Cells 3 (0-4) /hpf Urine Bacteria Rare H (None) /hpf Hyaline Casts 4 H (0-2) /lpf Urine Mucus Rare H (None) /hpf Urine Yeast (Budding) Rare H (None) /hpf Disposition Clinical Impression: Urinary tract infection Disposition: HOME SELF-CARE Condition: Good Instructions (If sedation given, give patient instructions): Urinary Tract Infection in Women (ED) Prescriptions: Cephalexin [Keflex] 500 mg PO Q6HR #28 cap Is patient prescribed a controlled substance at d/c from ED?: No Referrals: Nenita Shelby MD [Primary Care Provider] - 1-2 days
[2020-06-14 23:16] LABS: Appearance,Urine Clear (Clear); Bacteria,Urine Rare /hpf; Bilirubin,Urine Negative (Negative); Blood,Urine Large (Negative); Budding Yeast,Urine Rare /hpf; Color,Urine Yellow; Glucose,Urine (UA) Negative (Negative); Hyaline Casts,Urine 4 /lpf (0-2); Ketones,Urine Negative (Negative); Leukocyte Esterase,Urine Large (Negative); Mucus,Urine Rare /hpf; Nitrite,Urine Negative (Negative); Protein,Urine 1+ (Negative); RBC,Urine 97 /hpf (0-5); Specific Gravity,Urine 1.014 (1.001-1.035); Squamous Epithelial Cell,Urine 3 /hpf (0-4); Urobilinogen,Urine <2.0 mg/dL (<2.0); WBC,Urine 35 /hpf (0-5)
[2020-06-14 23:41] LABS: Basophils # (A) 0.1 k/uL (0-0.2); Basophils % (A) 1 %; Eosinophils # (A) 0.2 k/uL (0-0.7); Eosinophils % (A) 4 %; HCT 33.8 % (34.0-46.0); HGB 10.8 gm/dL (11.4-16.0); Lymphocytes # (A) 1.9 k/uL (1.0-4.8); Lymphocytes % (A) 38 %; MCH 27.8 pg (25.0-35.0); MCHC 31.9 g/dL (31.0-37.0); MCV 87.1 fL (80.0-100.0); Mean Platelet Volume 8.7; Monocytes # (A) 0.3 k/uL (0-1.0); Monocytes % (A) 6 %; Neutrophils # (A) 2.5 k/uL (1.3-7.7); Neutrophils % (A) 49 %; Platelet Count 231 k/uL (150-450); RBC 3.89 m/uL (3.80-5.40); RDW 13.2 % (11.5-15.5)
[2020-06-14 23:54] LABS: Albumin 3.6 g/dL (3.5-5.0); C Reactive Protein 13.7 mg/L (<10.0); Calcium 9.1 mg/dL (8.4-10.2); Potassium 4.2 mmol/L (3.5-5.1); Total Bilirubin 0.5 mg/dL (0.2-1.3); Total Protein 7.7 g/dL (6.3-8.2)
[2020-06-15] MEDS ORDERED: FLUCONAZOLE 150 MG TAB PO STA (00:16)
[2020-06-15] MEDS ORDERED: METOPROLOL TARTRATE 25 MG TAB PO STA (00:45)
[2020-06-15] MEDS ORDERED: lisinopriL 20 MG TAB PO STA (00:45)
[2020-06-15 01:34] VITALS: TEMP 98.4
[2020-06-15 01:57] VITALS: BP 185/69; PULSE 83; RESP 17
== END 2020-06-15 01:40 | disposition home or self-care (01) ==
LOC: EC 21:32
DX: N39.0 Urinary tract infection, site not specified (principal); J45.909 Unspecified asthma, uncomplicated; E11.9 Type 2 diabetes mellitus without complications; I10 Essential (primary) hypertension; M06.9 Rheumatoid arthritis, unspecified; Z79.01 Long term (current) use of anticoagulants; Z79.84 Long term (current) use of oral hypoglycemic drugs; Z79.899 Other long term (current) drug therapy; Z88.8 Allergy status to other drugs, medicaments and biological substances; Z86.73 Personal history of transient ischemic attack (TIA), and cerebral infarction without residual deficits
CPT/HCPCS: 36415; 80053; 81001; 85025; 86140; 87086; 96365; 99283

== ENCOUNTER 2021-02-14 13:00 | Emergency (ER) | payer MEDICARE ==
[2021-02-14 13:21] VITALS: TEMP 100.2
[2021-02-14] MEDS ORDERED: IBUPROFEN 600 MG TAB PO STA (13:22)
[2021-02-14] MEDS ORDERED: ACETAMINOPHEN TAB 500 MG TAB PO STA (13:22)
--- NOTE | 2021-02-14 13:24 | ED ---
General Adult HPI - General Chief complaint: Upper Respiratory Infection Stated complaint: congestion/headache/cough/back pain Time Seen by Provider: 02/14/21 13:00 Source: patient, RN notes reviewed, old records reviewed Mode of arrival: wheelchair Limitations: no limitations - History of Present Illness Initial comments: This is a 75-year-old female presents emergency department today complaining of generalized body aches and chills. Patient states on January 30 she received the first of her vaccines and ever since then she states she's had these symptoms. Patient also has some congestion and occasional cough. Patient denies significant shortness of breath per patient denies any chest pain or palpitations. Patient denies any nausea vomiting. Patient states she used to have diarrhea but she hasn't had diarrhea and a couple of days. Patient denies any swelling to her legs or calf tenderness. - Related Data Home Medications Medication Instructions Recorded Confirmed Cholecalciferol [Vitamin D3 (25 1,000 unit PO DAILY 05/14/19 06/14/20 Mcg = 1000 Iu)] Clopidogrel [Plavix] 75 mg PO DAILY 05/14/19 06/14/20 Ezetimibe [Zetia] 10 mg PO HS 05/14/19 06/14/20 Magnesium Oxide [Magox 400] 400 mg PO DAILY 05/14/19 06/14/20 Metoprolol Succinate (ER) [Toprol 25 mg PO DAILY 05/14/19 06/14/20 XL] glipiZIDE [Glucotrol] 5 mg PO TID 05/14/19 06/14/20 lisinopriL 40 mg PO DAILY 05/14/19 06/14/20 metFORMIN HCL 500 mg PO DAILY 05/14/19 06/14/20 Albuterol Inhaler [Ventolin Hfa 1 puff INHALATION RT-QID PRN 06/14/20 06/14/20 Inhaler] Ergocalciferol [Vitamin D2] 50,000 unit PO TU 06/14/20 06/14/20 Tolterodine ER [Detrol LA] 4 mg PO DAILY 06/14/20 06/14/20 Previous Rx's Medication Instructions Recorded Montelukast [Singulair] 10 mg PO HS #30 tab 05/24/19 Cephalexin [Keflex] 500 mg PO Q6HR #28 cap 06/15/20 Allergies Allergy/AdvReac Type Severity Reaction Status Date / Time atorvastatin [From Lipitor] AdvReac CRAMPS Verified 02/14/21 13:06 Review of Systems ROS Statement: Those systems with pertinent positive or pertinent negative responses have been documented in the HPI. ROS Other: All systems not noted in ROS Statement are negative. Past Medical History Past Medical History: Asthma, CVA/TIA, Diabetes Mellitus, Hyperlipidemia, Hypertension Additional Past Medical History / Comment(s): rheumatoid arthritis History of Any Multi-Drug Resistant Organisms: None Reported Past Surgical History: Appendectomy, Tubal Ligation Additional Past Surgical History / Comment(s): Colonoscopy Past Anesthesia/Blood Transfusion Reactions: No Reported Reaction Past Psychological History: No Psychological Hx Reported Smoking Status: Never smoker Past Alcohol Use History: None Reported Past Drug Use History: None Reported - Past Family History Father Family Medical History: Cancer, Congestive Heart Failure (CHF) Additional Family Medical History / Comment(s): colon cancer Mother Family Medical History: Rheumatoid Arthritis (RA) General Exam - General Exam Comments Initial Comments: GENERAL: Patient is well-developed and well-nourished. Patient is nontoxic and well- hydrated and is in mild distress. ENT: Neck is soft and supple. No significant lymphadenopathy is noted. Oropharynx is clear. Moist mucous membranes. Neck has full range of motion without eliciting any pain. EYES: The sclera were anicteric and conjunctiva were pink and moist. Extraocular movements were intact and pupils were equal round and reactive to light. Eyelids were unremarkable. PULMONARY: Unlabored respirations. Good breath sounds bilaterally. No audible rales rhonchi or wheezing was noted. CARDIOVASCULAR: There is a regular rate and rhythm without any murmurs gallops or rubs. ABDOMEN: Soft and nontender with normal bowel sounds. SKIN: Skin is clear with no lesions or rashes and otherwise unremarkable. NEUROLOGIC: Patient is alert and oriented x3. Cranial nerves II through XII are grossly intact. Motor and sensory are also intact. Normal speech, volume and content. Symmetrical smile. MUSCULOSKELETAL: Normal extremities with adequate strength and full range of motion. LYMPHATICS: No significant lymphadenopathy is noted PSYCHIATRIC: Normal psychiatric evaluation. Limitations: no limitations Course Vital Signs 02/14/21 02/14/21 13:06 13:20 Temperature 99.1 F 100.2 F H Pulse Rate 86 Respiratory 18 Rate Blood Pressure 155/77 O2 Sat by Pulse 97 Oximetry Medical Decision Making - Medical Decision Making Patient's chest x-ray shows no acute abnormality. The patient is COVID positive. - Lab Data Lab Results 02/14/21 Range/Units 13:21 Coronavirus (PCR) Detected A (Not Detectd) Disposition Clinical Impression: COVID-19 Disposition: HOME SELF-CARE Condition: Good Instructions (If sedation given, give patient instructions): Coronavirus Disease 2019 (COVID-19) Additional Instructions: Patient is to return to the emergency department if there is any difficulty breathing or shortness of breath. Is patient prescribed a controlled substance at d/c from ED?: No Referrals: Nenita Shelby MD [Primary Care Provider] - 1-2 days Time of Disposition: 14:44
--- NOTE | 2021-02-14 13:56 | XR ---
EXAMINATION TYPE: XR chest 1V portable DATE OF EXAM: 02/14/2021 COMPARISON: 03/23/2020 HISTORY: Shortness of breath TECHNIQUE: Frontal and lateral views of the chest are obtained. FINDINGS: Scattered senescent parenchymal changes noted. Hyperinflation compatible with COPD. No evidence for infiltrate. No evidence for atelectasis. Heart size is stable. Mediastinal structures are stable and grossly unremarkable. No evidence for hilar prominence. Degenerative changes dorsal spine. IMPRESSION: 1. No evidence for acute pulmonary disease.
[2021-02-14 15:31] VITALS: BP 157/64; PULSE 73; RESP 17
== END 2021-02-14 15:44 | disposition home or self-care (01) ==
LOC: EC 13:00
DX: U07.1 COVID-19 (principal); J45.909 Unspecified asthma, uncomplicated; E11.9 Type 2 diabetes mellitus without complications; E78.5 Hyperlipidemia, unspecified; I10 Essential (primary) hypertension; Z86.73 Personal history of transient ischemic attack (TIA), and cerebral infarction without residual deficits
CPT/HCPCS: 71045; 87635; 99284

== ENCOUNTER 2021-02-15 22:44 | Inpatient (IN) | payer MEDICARE ==
[2021-02-15 23:08] LABS: Glucose,Whole Blood 131 mg/dL (75-99)
--- NOTE | 2021-02-16 00:28 | ED ---
Chest Pain HPI - General Chief Complaint: Chest Pain Stated Complaint: Chest Tightness Time Seen by Provider: 02/16/21 00:15 Source: patient Mode of arrival: wheelchair Limitations: no limitations - History of Present Illness MD Complaint: chest pain -: hour(s) Onset: during rest Pain Location: left chest Pain Radiation: none Severity: mild Quality: other ("Like needles") Consistency: constant Improves With: nothing Worsens With: other (Coughing) Other Symptoms: cough, fever Treatments Prior to Arrival: none - Related Data Home Medications Medication Instructions Recorded Confirmed Cholecalciferol [Vitamin D3 (25 1,000 unit PO DAILY 05/14/19 06/14/20 Mcg = 1000 Iu)] Clopidogrel [Plavix] 75 mg PO DAILY 05/14/19 06/14/20 Ezetimibe [Zetia] 10 mg PO HS 05/14/19 06/14/20 Magnesium Oxide [Magox 400] 400 mg PO DAILY 05/14/19 06/14/20 Metoprolol Succinate (ER) [Toprol 25 mg PO DAILY 05/14/19 06/14/20 XL] glipiZIDE [Glucotrol] 5 mg PO TID 05/14/19 06/14/20 lisinopriL 40 mg PO DAILY 05/14/19 06/14/20 metFORMIN HCL 500 mg PO DAILY 05/14/19 06/14/20 Albuterol Inhaler [Ventolin Hfa 1 puff INHALATION RT-QID PRN 06/14/20 06/14/20 Inhaler] Ergocalciferol [Vitamin D2] 50,000 unit PO TU 06/14/20 06/14/20 Tolterodine ER [Detrol LA] 4 mg PO DAILY 06/14/20 06/14/20 Previous Rx's Medication Instructions Recorded Montelukast [Singulair] 10 mg PO HS #30 tab 05/24/19 Cephalexin [Keflex] 500 mg PO Q6HR #28 cap 06/15/20 Allergies Allergy/AdvReac Type Severity Reaction Status Date / Time atorvastatin [From Lipitor] AdvReac CRAMPS Verified 02/15/21 22:50 Review of Systems ROS Statement: Those systems with pertinent positive or pertinent negative responses have been documented in the HPI. ROS Other: All systems not noted in ROS Statement are negative. Constitutional: Reports: fever, chills Respiratory: Reports: cough. Denies: dyspnea, hemoptysis Cardiovascular: Reports: chest pain. Denies: palpitations, edema, syncope Gastrointestinal: Denies: abdominal pain, vomiting, diarrhea Genitourinary: Denies: dysuria, hematuria Musculoskeletal: Denies: back pain Skin: Denies: rash Neurological: Denies: headache, weakness EKG Findings - EKG Results: EKG: interpreted by [place] LUA, sinus rhythm (Rate 75 bpm), normal axis, normal QRS, normal ST/T Past Medical History Past Medical History: Asthma, CVA/TIA, Diabetes Mellitus, Hyperlipidemia, Hypertension Additional Past Medical History / Comment(s): rheumatoid arthritis History of Any Multi-Drug Resistant Organisms: None Reported Past Surgical History: Appendectomy, Tubal Ligation Additional Past Surgical History / Comment(s): Colonoscopy Past Anesthesia/Blood Transfusion Reactions: No Reported Reaction Past Psychological History: No Psychological Hx Reported Smoking Status: Never smoker Past Alcohol Use History: None Reported Past Drug Use History: None Reported - Past Family History Father Family Medical History: Cancer, Congestive Heart Failure (CHF) Additional Family Medical History / Comment(s): colon cancer Mother Family Medical History: Rheumatoid Arthritis (RA) General Exam Limitations: no limitations General appearance: alert, in no apparent distress Head exam: Present: atraumatic, normocephalic Neck exam: Present: normal inspection Respiratory exam: Present: normal lung sounds bilaterally. Absent: respiratory distress, wheezes, rales, rhonchi, stridor Cardiovascular Exam: Present: regular rate, normal rhythm, normal heart sounds. Absent: systolic murmur, diastolic murmur, rubs, gallop GI/Abdominal exam: Present: soft. Absent: distended, tenderness, guarding, rebound, rigid, mass Extremities exam: Present: normal inspection, normal capillary refill. Absent: pedal edema, calf tenderness Back exam: Present: normal inspection. Absent: CVA tenderness (R), CVA tenderness (L) Neurological exam: Present: alert Skin exam: Present: warm, dry, intact, normal color. Absent: rash Course Vital Signs 02/15/21 02/15/21 02/16/21 22:48 23:44 00:40 Temperature 97.9 F 98.1 F Pulse Rate 76 69 Respiratory 24 18 18 Rate Blood Pressure 164/73 183/70 O2 Sat by Pulse 95 97 Oximetry Disposition Clinical Impression: Atypical chest pain, COVID-19, Dehydration Disposition: ADMITTED IP TO THIS HOSP Condition: Fair Referrals: Nenita Shelby MD [Primary Care Provider] - 1-2 days
[2021-02-16 00:48] LABS: Basophils % (A) 1 %; Eosinophils # (A) 0.1 k/uL (0-0.7); Eosinophils % (A) 2 %; HCT 29.7 % (34.0-46.0); HGB 10.4 gm/dL (11.4-16.0); Lymphocytes # (A) 1.2 k/uL (1.0-4.8); Lymphocytes % (A) 34 %; MCHC 34.9 g/dL (31.0-37.0); MCV 83.1 fL (80.0-100.0); Mean Platelet Volume 8.7; Monocytes # (A) 0.2 k/uL (0-1.0); Monocytes % (A) 7 %; Neutrophils # (A) 1.9 k/uL (1.3-7.7); Neutrophils % (A) 55 %; Platelet Count 205 k/uL (150-450); RBC 3.58 m/uL (3.80-5.40); RDW 13.4 % (11.5-15.5); WBC 3.6 k/uL (3.8-10.6)
--- NOTE | 2021-02-16 00:58 | XR ---
EXAM: XR Chest, 1 View CLINICAL HISTORY: ITS.REASON XR Reason: chest pain TECHNIQUE: Frontal view of the chest. COMPARISON: February 14, 2021. FINDINGS: Lungs: Blunting of the left lung base may be chronic. No acute infiltration or atelectasis is seen in the lungs. Pleural space: Unremarkable. No pneumothorax or pleural fluid. Heart: Unremarkable. No cardiomegaly. Mediastinum: Unremarkable. Bones/joints: No acute findings. IMPRESSION: No acute findings in the chest.
[2021-02-16 01:00] LABS: Albumin 3.6 g/dL (3.5-5.0); Calcium 8.3 mg/dL (8.4-10.2); Magnesium 1.3 mg/dL (1.6-2.3); Total Bilirubin 0.7 mg/dL (0.2-1.3); Total Protein 7.9 g/dL (6.3-8.2)
[2021-02-16 01:16] LABS: Potassium 3.9 mmol/L (3.5-5.1)
[2021-02-16 01:25] LABS: INR 0.9 (<1.2); Prothrombin Time 9.8 sec (9.0-12.0)
[2021-02-16 01:27] LABS: Partial Thromboplastin Time 18.6 sec (22.0-30.0)
[2021-02-16] MEDS ORDERED: SODIUM CHLORIDE 0.9% 500 ML 500 ML IV STA (01:32)
[2021-02-16] MEDS ORDERED: MAGNESIUM SULFATE-D5W PMX 1 GM in DEXTROSE/WATER 1 100ML.BAG IVPB ONE (01:32)
[2021-02-16] MEDS ORDERED: NITROGLYCERIN SL TABS 0.4 MG TAB SUBLINGUAL PRN (01:43)
[2021-02-16] MEDS ORDERED: SODIUM CHLORIDE 0.9% 1,000 ML IV STA (01:46)
[2021-02-16] MEDS ORDERED: ALBUTEROL HFA INHALER INHALATION PRN (05:46)
[2021-02-16] MEDS: lisinopriL 20 MG TAB PO SCH (07:58)
[2021-02-16] MEDS: metFORMIN 500 MG TAB PO SCH (07:59)
[2021-02-16] MEDS: METOPROLOL SUCCINATE (ER) 25 MG TAB.ER.24H PO SCH (07:59)
[2021-02-16] MEDS: OXYBUTYNIN 10 MG TAB.ER.24 PO SCH (07:59)
[2021-02-16] MEDS: CLOPIDOGREL 75 MG TAB PO SCH ×2 (07:59→13:42)
[2021-02-16] MEDS ORDERED: HEPARIN SODIUM,PORCINE/PF 5,000 UNIT/0.5 ML SYRINGE SQ SCH (09:00)
[2021-02-16] MEDS ORDERED: glipiZIDE 5 MG TAB PO SCH (09:00)
[2021-02-16] MEDS ORDERED: MAGNESIUM OXIDE 400 MG TAB PO SCH (09:00)
[2021-02-16] MEDS ORDERED: Potassium Replacement Protocol 1 EACH MISC MISCELLANE PRN (12:50)
[2021-02-16] MEDS ORDERED: Magnesium Replacement Protocol 1 EACH MISC MISCELLANE PRN (12:50)
[2021-02-16] MEDS: CHOLECALCIFEROL 25 MCG (1000 IU) TABLET PO SCH ×2 (13:25→13:43)
[2021-02-16] MEDS: ASCORBIC ACID 500 MG TAB PO SCH (13:42)
[2021-02-16] MEDS: LACTULOSE 20 GM/30 ML CUP PO SCH (13:42)
[2021-02-16] MEDS: ENOXAPARIN 40 MG/0.4 ML SYRINGE SQ SCH (13:42)
[2021-02-16] MEDS: MAGNESIUM OXIDE 400 MG TAB PO SCH (13:42)
[2021-02-16] MEDS: ZINC SULFATE 220 MG CAP PO SCH (13:42)
[2021-02-16 13:43] LABS: C Reactive Protein 17.9 mg/L (<10.0)
--- NOTE | 2021-02-16 15:26 | HP ---
HISTORY AND PHYSICAL DATE OF SERVICE: 02/16/2021 CHIEF COMPLAINT: Chest pain, weakness and shortness of breath. HISTORY OF PRESENT ILLNESS: This 75-year-old woman with a past medical history of multiple medical problems including asthma, CVA, TIA, diabetes mellitus, hypertension, hyperlipidemia, rheumatoid arthritis, being followed by Dr. Shelby in the outpatient setting was admitted with some shortness of breath and chest pain. The patient also had the first dose of COVID vaccine on January 27 and 4 days later the patient had shortness of breath and cough sputum, which is ongoing at this time. Chest x-ray did not show acute abnormality. EKG did not show acute abnormality. Patient admitted for further evaluation. Patient also has some chest discomfort also. There is no history of fever, rigors, chills. No history of headache, loss of consciousness, seizures. PAST MEDICAL HISTORY: History of recent diagnosed COVID-19, asthma, CVA, TIA, diabetes mellitus type 2, hypertension, hyperlipidemia, rheumatoid arthritis, appendectomy. MEDICATIONS: Home medications are magnesium oxide, vitamin D3, Ventolin HFA, metformin, lisinopril, Glucotrol, Toprol, Detrol LA, Singular, Plavix. ALLERGIES: LIPITOR AND LATEX. FAMILY HISTORY: History of CHF, colon cancer. SOCIAL HISTORY: No history of smoking. No alcohol. REVIEW OF SYSTEMS: ENT: No diminished vision or hearing. CARDIOVASCULAR: As mentioned earlier. RESPIRATORY: As mentioned earlier. GI: As mentioned earlier. : No dysuria. NERVOUS SYSTEM: No numbness or weakness. ALLERGY/IMMUNOLOGY: No asthma or hayfever. MUSCULOSKELETAL: As mentioned earlier. HEMATOLOGY: No history of anemia. ENDOCRINE: As mentioned earlier. CONSTITUTIONAL: As mentioned earlier. DERMATOLOGY: Negative. RHEUMATOLOGY: Negative. PSYCHIATRY: As mentioned earlier. PHYSICAL EXAMINATION: GENERAL: Patient is alert and oriented times three. VITAL SIGNS: Pulse 71, blood pressure 157/94, respirations 18, temperature 98.1, pulse ox 99% on room air. HEENT: Conjunctivae normal. Oral mucosa moist. NECK: No jugular venous distention. No carotid bruits. No lymph node enlargement. RESPIRATORY: Breath sounds diminished at the bases. A few scattered rhonchi and crackles. HEART: S1 and S2, muffled. ABDOMEN: Soft, no tenderness. No masses palpable. EXTREMITIES: No edema, no swelling. NERVOUS: Higher functions as mentioned earlier. Moves all four limbs. No focal motor or sensory deficits. LYMPHATICS: No lymph nodes palpable in the neck or axillae. SKIN: No rashes. JOINTS: No active deforming arthropathy. LABS: WBC 3.7, hemoglobin 10.2, sodium 130, creatinine 1.67. ASSESSMENT: 1. Chest pain for evaluation. 2. Acute COVID-19 infection. 3. Acute bronchial asthma, acute exacerbation, acute purulent tracheobronchitis. 4. Acute renal failure from dehydration with acute tubular necrosis. 5. Hyponatremia. 6. Hypomagnesemia. 7. Anemia. 8. Leukopenia. 9. History of asthma. 10.History of cerebrovascular accident, transient ischemic attack .. 11.History of diabetes mellitus type 2. 12.Hypertension. 13.Hyperlipidemia. 14.History of rheumatoid arthritis. 15.Obesity with body mass index of 36.5. RECOMMENDATIONS AND DISCUSSION: In this 75-year-old woman who presented with multiple complex medical issues, we will monitor the patient closely. Continue the current management and continue with symptomatic treatment. Continue the bronchodilators. We will continue with Lovenox, zinc and the rest of the medications also include vitamin C. Also recommend to order baseline labs. Other than that, I would also consult Cardiology and Infectious Disease. Prognosis guarded because of multiple complex medical issues with several comorbidities and active COVID-19 infection. Prognosis guarded. Further recommendations to follow. MMODL / IJN: [id number] /
[2021-02-16] MEDS: ALBUTEROL HFA INHALER INHALATION SCH ×2 (16:32→20:26)
[2021-02-16] MEDS: SODIUM CHLORIDE 0.9% 1,000 ML IV SCH (17:37)
[2021-02-16] MEDS: glipiZIDE 5 MG TAB PO SCH (17:37)
[2021-02-16] MEDS: MONTELUKAST 10 MG TAB PO SCH (20:32)
[2021-02-16 21:40] LABS: Glucose,Whole Blood 127 mg/dL (75-99)
[2021-02-16] MEDS: EZETIMIBE 10 MG TAB PO SCH (22:33)
[2021-02-17 00:05] LABS: Ferritin 336.6 ng/mL (10.0-291.0)
[2021-02-17] MEDS: SODIUM CHLORIDE 0.9% 1,000 ML IV SCH ×2 (04:25→12:30)
[2021-02-17] MEDS: glipiZIDE 5 MG TAB PO SCH ×2 (06:56→17:20)
[2021-02-17 06:57] LABS: Glucose,Whole Blood 97 mg/dL (75-99)
[2021-02-17 07:18] LABS: Appearance,Urine Clear (Clear); Bacteria,Urine Rare /hpf; Bilirubin,Urine Negative (Negative); Blood,Urine Large (Negative); Color,Urine Light Yellow; Glucose,Urine (UA) Negative (Negative); Ketones,Urine Negative (Negative); Leukocyte Esterase,Urine Trace (Negative); Mucus,Urine Rare /hpf; Nitrite,Urine Negative (Negative); PH, Urine 5.5 (5.0-8.0); Protein,Urine Trace (Negative); RBC,Urine 11 /hpf (0-5); Squamous Epithelial Cell,Urine 1 /hpf (0-4); Urobilinogen,Urine <2.0 mg/dL (<2.0); WBC,Urine 3 /hpf (0-5)
[2021-02-17] MEDS: ALBUTEROL HFA INHALER INHALATION SCH ×4 (07:35→19:18)
[2021-02-17 07:46] LABS: Specific Gravity,Urine 1.004 (1.001-1.035)
[2021-02-17] MEDS: ENOXAPARIN 40 MG/0.4 ML SYRINGE SQ SCH (08:56)
[2021-02-17] MEDS: OXYBUTYNIN 10 MG TAB.ER.24 PO SCH (08:56)
[2021-02-17] MEDS: LACTULOSE 20 GM/30 ML CUP PO SCH (08:56)
[2021-02-17] MEDS: lisinopriL 20 MG TAB PO SCH (08:57)
[2021-02-17] MEDS: metFORMIN 500 MG TAB PO SCH (08:57)
[2021-02-17] MEDS: CLOPIDOGREL 75 MG TAB PO SCH (08:57)
[2021-02-17] MEDS: ASPIRIN 325 MG TAB PO SCH (08:57)
[2021-02-17] MEDS: ASCORBIC ACID 500 MG TAB PO SCH (08:57)
[2021-02-17] MEDS: METOPROLOL SUCCINATE (ER) 25 MG TAB.ER.24H PO SCH (08:58)
[2021-02-17] MEDS: ZINC SULFATE 220 MG CAP PO SCH (08:58)
[2021-02-17 09:00] LABS: Basophils % (A) 1 %; Eosinophils # (A) 0.1 k/uL (0-0.7); Eosinophils % (A) 2 %; HCT 28.2 % (34.0-46.0); HGB 9.6 gm/dL (11.4-16.0); Lymphocytes # (A) 1.4 k/uL (1.0-4.8); Lymphocytes % (A) 48 %; MCH 28.4 pg (25.0-35.0); MCHC 33.9 g/dL (31.0-37.0); MCV 83.9 fL (80.0-100.0); Mean Platelet Volume 8.4; Monocytes # (A) 0.2 k/uL (0-1.0); Monocytes % (A) 8 %; Neutrophils # (A) 1.1 k/uL (1.3-7.7); Neutrophils % (A) 39 %; Platelet Count 188 k/uL (150-450); RBC 3.37 m/uL (3.80-5.40); RDW 13.4 % (11.5-15.5); WBC 2.9 k/uL (3.8-10.6)
[2021-02-17 09:11] LABS: Calcium 8.2 mg/dL (8.4-10.2); Magnesium 1.6 mg/dL (1.6-2.3); Potassium 3.6 mmol/L (3.5-5.1)
[2021-02-17] MEDS: MAGNESIUM SULFATE-D5W PMX 1 GM in DEXTROSE/WATER 1 100ML.BAG IVPB SCH ×2 (11:00→12:21)
[2021-02-17] MEDS: POTASSIUM CHLORIDE ER 20 MEQ TAB.ER PO SCH ×2 (11:00→12:21)
[2021-02-17 11:31] LABS: Glucose,Whole Blood 73 mg/dL (75-99)
[2021-02-17 12:12] LABS: Glucose,Whole Blood 78 mg/dL (75-99)
[2021-02-17 12:12] LABS: Glucose,Whole Blood 84 mg/dL (75-99)
--- NOTE | 2021-02-17 14:16 | PN ---
PROGRESS NOTE DATE OF SERVICE: 02/17/2021 I am covering for Dr. Shelby. This 75-year-old woman who was admitted with acute COVID-19 infection and as well as chest pain is being closely monitored at this time. The patient's creatinine is elevated. Patient also had high elevated procalcitonin as well as elevated cholesterol. Patient is being treated symptomatically. Infectious Disease and Cardiology have been consulted. PAST MEDICAL HISTORY: Reviewed. REVIEW OF SYSTEMS: CARDIOVASCULAR: As mentioned earlier. RESPIRATORY: As mentioned earlier. GI: As mentioned earlier. : No dysuria. NERVOUS SYSTEM: No numbness or weakness. CURRENT MEDICATIONS: Reviewed include Ventolin, vitamin C, aspirin, vitamin D3, Plavix, Lovenox, Zetia, Glucotrol, Cephulac, Zestril. magnesium oxide, Glucophage, Toprol-XL. Doses are reviewed. PHYSICAL EXAM: Patient is alert and oriented x3. Pulse 71, blood pressure 143/76, respirations 16, temperature 97.4, pulse ox 94% on room air. HEENT: Conjunctivae normal. Oral mucosa moist. NECK: No jugular venous distention. No lymph node enlargement. CARDIOVASCULAR: S1, S2, muffled. No S3, no S4, RESPIRATORY: Diminished breath sounds at the bases. Scattered rhonchi. ABDOMEN: Soft, obese, nontender. LEGS: No edema, no swelling. NERVOUS SYSTEM: No focal deficits LAB STUDIES: WBC 2.9, hemoglobin 9.6, sodium 138, potassium 3.7. Lipids are noted. ASSESSMENT: 1. Chest pain for evaluation, rule out coronary artery disease. 2. Acute COVID-19 infection. 3. Elevated D-dimer. 4. Bronchial asthma acute exacerbation with acute purulent tracheobronchitis. 5. Acute renal failure, dehydration with acute tubular necrosis. 6. Hyponatremia. 7. Hypomagnesemia. 8. Anemia. 9. Leukopenia. 10.History of asthma. 11.History of CVA/TIA. 12.History of diabetes type 2. 13.Hypertension. 14.Hyperlipidemia. 15.History rheumatoid arthritis. 16.Obesity with body mass 36.5. RECOMMENDATIONS AND DISCUSSION: Recommend to continue current medications, continue symptomatic treatment. Otherwise, at this time I would repeat a chest x-ray. I would also recommend V/Q scan as well as ultrasound of the leg for the possibility of DVT. Otherwise, continue rest of medications. Closely monitor. The patient is being given symptomatic treatment. Further recommendations to follow. MMODL / IJN: [id number] /
--- NOTE | 2021-02-17 15:53 | US ---
EXAMINATION TYPE: US venous doppler duplex LE DATE OF EXAM: 02/17/2021 2:05 PM COMPARISON: NONE CLINICAL HISTORY: dvt. Covid positive, patient does not complain of any leg symptoms. SIDE PERFORMED: Bilateral TECHNIQUE: The lower extremity deep venous system is examined utilizing real time linear array sonog gabino with graded compression, doppler sonography and color-flow sonography. VESSELS IMAGED: Common Femoral Vein Deep Femoral Vein Greater Saphenous Vein * Femoral Vein Popliteal Vein Small Saphenous Vein * Proximal Calf Veins (* superficial vessels) Right Leg: Negative for DVT Left Leg: Negative for DVT IMPRESSION: No evidence of bilateral lower extremity DVT.
[2021-02-17 16:26] LABS: Glucose,Whole Blood 117 mg/dL (75-99)
[2021-02-17 17:48] LABS: Albumin 3.3 g/dL (3.5-5.0); Calcium 8.2 mg/dL (8.4-10.2); Potassium 4.3 mmol/L (3.5-5.1); Total Bilirubin 0.4 mg/dL (0.2-1.3); Total Protein 7.3 g/dL (6.3-8.2)
[2021-02-17 20:04] LABS: Glucose,Whole Blood 181 mg/dL (75-99)
[2021-02-17] MEDS: EZETIMIBE 10 MG TAB PO SCH (21:30)
[2021-02-17] MEDS: MONTELUKAST 10 MG TAB PO SCH (21:30)
[2021-02-17] MEDS: MAGNESIUM OXIDE 400 MG TAB PO SCH (21:30)
--- NOTE | 2021-02-17 22:32 | NM ---
EXAMINATION TYPE: NM pul perfusion DATE OF EXAM: 02/17/2021 COMPARISON: NONE HISTORY: Short of breath Following administration of 5.3 mCi Tc 99m MAA. Images obtained post injection. FINDINGS: There are small subsegmental perfusion defects in the periphery of both lungs. There is large area of decreased perfusion in the region of lingula left upper lobe probably due to an enlarged heart. The chest x-ray yesterday shows some pleural reaction in the lingula left upper lobe as well as mild card iomegaly. There is no segmental type defect. IMPRESSION: Small subsegmental defects. Defect in the region of the lingula left upper lobe probably due to the p leural reaction and atelectasis and cardiomegaly. There is overall low probability of pulmonary embol ism.
[2021-02-18 06:09] LABS: Glucose,Whole Blood 79 mg/dL (75-99)
--- NOTE | 2021-02-18 06:24 | CONS ---
CONSULTATION DATE OF SERVICE: 02/17/2021 REASON FOR CONSULTATION: COVID-19 infection and UTI. HISTORY OF PRESENT ILLNESS: The patient is a 75-year-old female with multiple comorbidities. The patient presented to the ER with chief complaint of shortness of breath and chest pain. The patient's symptoms have been going on for a few days before presentation to the hospital. The patient describes the pain to be more sharp in nature 3 to 4/10 and no radiation with associated shortness of breath. The patient denies significant cough or sputum production. No URI symptoms. Denies any nausea or vomiting, though has decreased oral intake. No diarrhea. Denies having any fever or chills. The patient denies any burning or frequency of urine. With these symptoms, the patient was evaluated by the ER physician. On arrival in the ER, the patient was afebrile. The patient is currently saturating 97-96% on room air. The patient did have leukopenia and no lymphopenia. D-dimer was elevated at 3.01. Creatinine was elevated at 1.48. CRP 17.9, ferritin 336. Urine shows trace leukocyte esterase and 1100 RBCs only 3 WBC. The patient did have a chest x-ray, no acute findings in the chest. Ventilation-perfusion imaging was negative, low probability for PE. Infectious Disease was consulted for further management. REVIEW OF SYSTEMS: Positive points have been mentioned in HPI. Rest of systems are negative. PAST MEDICAL HISTORY: CVA, TIA, asthma, diabetes mellitus, hyperlipidemia, hypertension, rheumatoid arthritis. PAST SURGERY HISTORY: Appendectomy, , colonoscopy. SOCIAL HISTORY: No history of smoking, drinking or drug use. FAMILY HISTORY: Father with history of colon cancer, congestive heart failure. Mother with history of rheumatoid arthritis. ALLERGIES: ATORVASTATIN AND LATEX. MEDICATIONS: The patient is currently on Ventolin, vitamin C, aspirin, vitamin D3, Plavix, Lovenox, Glucotrol, Zestril, Mag oxide, Glucophage, Toprol-XL, Singulair, Nitrostat, Ditropan XL and zinc sulfate. PHYSICAL EXAMINATION: VITAL SIGNS: Blood pressure 169/78 with a pulse of 70, temperature 98, she is 97% on room air. GENERAL DESCRIPTION: Patient is an elderly female lying in bed in no distress. No tachypnea or accessory muscles of respiration use. HEENT: Examination shows slight pallor, no scleral icterus. Oral mucous membrane is dry. NECK: Trachea central, no thyromegaly. LUNGS: Unlabored breathing, decreased intensity of breath sounds, no wheeze. HEART: S1-S2, regular rate and rhythm. ABDOMEN: Soft, no tenderness. No guarding or rigidity. EXTREMITIES: No edema of the feet. SKIN: No rash or mass palpable. NEUROLOGICAL: Patient is awake, alert, oriented times three. Mood and affect normal. LABS: Hemoglobin 9.0, white count 2.9. D-dimer 3.01. BUN of 30, creatinine 1.35. Liver enzymes normal. Ferritin has been mildly elevated. Urine did not show any pyuria. DIAGNOSTIC IMPRESSION: Patient admitted to the hospital with chest pain, shortness of breath which is likely multifactorial in this patient whose chest x-ray was negative for any acute infiltrate. V/Q scan was low probability for PE. CT could not be done because of her liver and renal function. The patient did not have any fever or any lymphopenia and did not have any acute finding on the chest x-ray. Possible mild COVID-19 infection. PLAN: 1. No need for steroids or remdesivir therapy. 2. Lovenox, zinc, ascorbic acid. 3. Droplet isolation and respiratory support. 4. No evidence of any UTI hence no need for systemic antibiotic therapy. 5. Thank you for this consultation. Will follow this patient along with you. MMODL / IJN: [id number] /
[2021-02-18] MEDS: glipiZIDE 5 MG TAB PO SCH (06:28)
[2021-02-18] MEDS: SODIUM CHLORIDE 0.9% 1,000 ML IV SCH (06:29)
[2021-02-18] MEDS: ALBUTEROL HFA INHALER INHALATION SCH ×4 (07:29→19:51)
[2021-02-18 07:57] LABS: Basophils % (A) 1 %; Eosinophils # (A) 0.1 k/uL (0-0.7); Eosinophils % (A) 2 %; HGB 9.1 gm/dL (11.4-16.0); Lymphocytes % (A) 33 %; MCH 27.9 pg (25.0-35.0); MCHC 32.5 g/dL (31.0-37.0); MCV 85.9 fL (80.0-100.0); Mean Platelet Volume 8.5; Monocytes # (A) 0.2 k/uL (0-1.0); Monocytes % (A) 8 %; Neutrophils # (A) 1.6 k/uL (1.3-7.7); Neutrophils % (A) 55 %; Platelet Count 185 k/uL (150-450); RBC 3.26 m/uL (3.80-5.40); RDW 13.8 % (11.5-15.5); WBC 2.9 k/uL (3.8-10.6)
[2021-02-18 08:19] LABS: Calcium 8.2 mg/dL (8.4-10.2); Magnesium 1.9 mg/dL (1.6-2.3); Potassium 4.1 mmol/L (3.5-5.1)
[2021-02-18] MEDS ORDERED: amLODIPine 5 MG TAB PO SCH (09:15)
[2021-02-18] MEDS: LACTULOSE 20 GM/30 ML CUP PO SCH (09:25)
[2021-02-18] MEDS: CLOPIDOGREL 75 MG TAB PO SCH (09:25)
[2021-02-18] MEDS: ASCORBIC ACID 500 MG TAB PO SCH (09:26)
[2021-02-18] MEDS: ENOXAPARIN 40 MG/0.4 ML SYRINGE SQ SCH (09:26)
[2021-02-18] MEDS: OXYBUTYNIN 10 MG TAB.ER.24 PO SCH (09:26)
[2021-02-18] MEDS: metFORMIN 500 MG TAB PO SCH (09:26)
[2021-02-18] MEDS: METOPROLOL SUCCINATE (ER) 25 MG TAB.ER.24H PO SCH (09:27)
[2021-02-18] MEDS: lisinopriL 20 MG TAB PO SCH (09:27)
[2021-02-18] MEDS: ASPIRIN 325 MG TAB PO SCH (09:28)
[2021-02-18] MEDS: ZINC SULFATE 220 MG CAP PO SCH (09:28)
[2021-02-18] MEDS ORDERED: CHOLECALCIFEROL 25 MCG (1000 IU) TABLET PO SCH (09:30)
[2021-02-18] MEDS: CHOLECALCIFEROL 25 MCG (1000 IU) TABLET PO SCH (09:39)
[2021-02-18 09:44] VITALS: RESP 16
--- NOTE | 2021-02-18 10:35 | P.CRDCN ---
History of Present Illness History of present illness: HISTORY OF PRESENTING ILLNESS This is a pleasant 75-year-old female past medical history significant for Asthma, Type 2 Diabetes and hypertension, GERD. She follows in the office with Dr. Roman. We have been asked to see in consultation for chest pain. Patient is seen and examined at bedside, no acute distress. She states she presents emergency department complaint shortness of breath and chest pain. Found to be COVID 19 positive. Also admitted with acute kidney injury. She described her chest pain as a "prickling" feeling, describes it as her Asthma acting up. It is nonradiating, nonexertional. Associated symptoms include shortness of breath. Aggravating symptoms include taking a deep breath and cough. She does endorse chronic lower extremity edema. She is a nonsmoker, denies alcohol use. Current cardiac medications include lisinopril 40 mg daily, Toprol 25 mg daily, Plavix 75 mg daily, magnesium oxide 500 mg nightly. Patients states she is compliant with medication Laboratory data reviewed, troponin negative 3, d-dimer 3.0, triglycerides 179, cholesterol 219, LDL 153, HDL 30, Sodium 138, K 4.1, sCr 1.22 (1.48)/yesterday), Mag 19. Vital signs BP 168/74 HR 71, 96% on room air, afebrile. DIAGNOSTICS Most recent echocardiogram 05/2019EF between 6065 percent, RV is mildly enlarged, LA severely dilated, mild aortic stenosis is present with mean gradient of 8.6 mmHg, trace to mild MR, mild mitral stenosis, mild TR, mild pulmonary hypertension EKG reveals sinus rhythm, no significant STT wave abnormalities. Telemetry tracings indicate sinus rhythm heart rate 70s. Chest xray no acute findings in the chest. V/Q scan - low probability for PE Bilateral LE Dopplers- Negative DVT REVIEW OF SYSTEMS At the time of my exam: CONSTITUTIONAL: Denies fever or chills. CARDIOVASCULAR: +shortness of breath, +chest pain, Denies orthopnea, PND or palpitations. RESPIRATORY: Denies cough. GASTROINTESTINAL: Denies abdominal pain, diarrhea, constipation, nausea or vomiting. MUSCULOSKELETAL: Denies myalgias. NEUROLOGIC: Denies numbness, tingling, headacbe or weakness. ENDOCRINE: Denies fatigue, weight change, polydipsia or polyurina. GENITOURINARY: Denies burning, hematuria or urgency with micturation. HEMATOLOGIC: Denies history of anemia or bleeding. PHYSICAL EXAMINATION CONSTITUTIONAL: No apparent distress. HEENT: Head is normocephalic. Pupils are equal, round. Sclerae anicteric. Mucous membranes of the mouth are moist. No JVD. No carotid bruit. CHEST EXAMINATION: Lungs are clear to auscultation. No chest wall tenderness is noted on palpation or with deep breathing. HEART EXAMINATION: Regular rate and rhythm. S1, S2 heard. No murmurs, gallops or rub. ABDOMEN: Soft, nontender. Positive bowel sounds. EXTREMITIES: 2+ peripheral pulses, Moderate non-pitting pedal edema and no calf tenderness. SKIN: intact NEUROLOGIC EXAMINATION: Patient is awake, alert and oriented x3. ASSESSMENT Chest pain, atypical. -an acute coronary event has been ruled out with no EKG evidence of ischemia and negative cardiac enzymes. Acute Kidney Injury - improving with IV fluids Recent COVID-19 infection Asthma Type 2 Diabetes Hypertension GERD Dyslipidemia- Patient is intolerant of "statin" therapy due to myalgias. Patient takes Ezetimibe outpatient PLAN Obtain 2D echocardiogram and doppler study to assess cardiac structure and function. Start amlodipine 5 mg daily Start aspirin 81 mg daily Continue Plavix Continue Lisinopril 40mg daily Continue metoprolol succinate 25mg daily Further recommendations based on clinical course Follow up with Dr. Roman outpatient Nurse Practitioner note has been reviewed, I agree with a documented findings a nd plan of care. Patient was seen and examined. Past Medical History Past Medical History: Asthma, CVA/TIA, Diabetes Mellitus, Hyperlipidemia, Hypertension, Rheumatoid Arthritis (RA) Additional Past Medical History / Comment(s): TIA in 2016 History of Any Multi-Drug Resistant Organisms: None Reported Past Surgical History: Appendectomy, Tubal Ligation Additional Past Surgical History / Comment(s): Colonoscopy Past Anesthesia/Blood Transfusion Reactions: No Reported Reaction Past Psychological History: No Psychological Hx Reported Smoking Status: Never smoker Past Alcohol Use History: None Reported Past Drug Use History: None Reported - Past Family History Father Family Medical History: Cancer, Congestive Heart Failure (CHF) Additional Family Medical History / Comment(s): colon cancer Mother Family Medical History: Rheumatoid Arthritis (RA) Medications and Allergies Home Medications Medication Instructions Recorded Confirmed Type Clopidogrel [Plavix] 75 mg PO DAILY 05/14/19 02/16/21 History Metoprolol Succinate (ER) [Toprol 25 mg PO DAILY 05/14/19 02/16/21 History XL] glipiZIDE [Glucotrol] 5 mg PO AC-BID 05/14/19 02/16/21 History lisinopriL 40 mg PO DAILY 05/14/19 02/16/21 History metFORMIN HCL 500 mg PO DAILY 05/14/19 02/16/21 History Montelukast [Singulair] 10 mg PO HS #30 tab 05/24/19 02/16/21 Rx Albuterol Inhaler [Ventolin Hfa 1 - 2 puff INHALATION RT-QID PRN 06/14/20 02/16/21 History Inhaler] Tolterodine ER [Detrol LA] 4 mg PO DAILY PRN 06/14/20 02/16/21 History Cholecalciferol [Vitamin D3 (25 50 mcg PO DAILY 02/16/21 02/16/21 History Mcg = 1000 Iu)] Ferrous Sulfate [Feosol] 325 mg PO DAILY 02/16/21 02/16/21 History Lactulose [Constulose] 10 gm PO DAILY 02/16/21 02/16/21 History Magnesium Oxide [Wyatt] 500 mg PO HS 02/16/21 02/16/21 History Allergies Allergy/AdvReac Type Severity Reaction Status Date / Time atorvastatin [From Lipitor] AdvReac CRAMPS Verified 02/16/21 07:57 latex AdvReac Itching Verified 02/16/21 07:57 Physical Exam Vitals: Vital Signs Temp Pulse Resp BP BP BP Pulse Ox 02/18/21 04:55 71 17 168/74 96 02/18/21 01:42 68 17 02/18/21 00:00 68 17 158/67 98 02/17/21 20:00 98.0 F 78 17 169/78 97 02/17/21 16:00 98.2 F 76 16 142/70 95 02/17/21 14:00 16 02/17/21 12:00 97.8 F 83 16 144/73 96 02/17/21 08:55 97.4 F L 71 16 153/77 94 L 02/17/21 08:50 16 Intake and Output 02/17/21 02/18/21 02/18/21 22:59 06:59 14:59 Intake Total 1310 775 Output Total 1800 Balance 1310 -1025 Intake: IV 800 525 Magnesium Sulfate-D5w Pmx 200 1 gm In Dextrose/Water 1 100ml.bag @ 100 mls/hr IVPB Q1H [facility] Rx#: [id number] Sodium Chloride 0.9% 1, 600 525 000 ml @ 75 mls/hr IV . [id number] [facility] Rx#:[id number] Oral 510 250 Output: Urine 1800 Other: Voiding Method Toilet Toilet Bedside Commode Bedside Commode # Voids 2 1 Weight 106 kg Results 02/18/21 06:54 02/18/21 06:54 Cardiac Enzymes 02/17/21 Range/Units 17:16 AST 25 (14-36) U/L Lipids 02/17/21 Range/Units 08:01 Triglycerides 179 H (<150) mg/dL Cholesterol 219 H (<200) mg/dL HDL Cholesterol 30 L (40-60) mg/dL CBC 02/17/21 02/18/21 Range/Units 08:01 06:54 WBC 2.9 L 2.9 L (3.8-10.6) k/uL RBC 3.37 L 3.26 L (3.80-5.40) m/uL Hgb 9.6 L 9.1 L (11.4-16.0) gm/dL Hct 28.2 L 28.0 L (34.0-46.0) % Plt Count 188 185 (150-450) k/uL Comprehensive Metabolic Panel 02/17/21 02/17/21 02/18/21 Range/Units 08:01 17:16 06:54 Sodium 138 136 L 138 (137-145) mmol/L Potassium 3.6 4.3 4.1 (3.5-5.1) mmol/L Chloride 103 103 105 (98-107) mmol/L Carbon Dioxide 26 25 26 (22-30) mmol/L BUN 30 H 32 H 31 H (7-17) mg/dL Creatinine 1.35 H 1.48 H 1.22 H (0.52-1.04) mg/dL Glucose 98 98 65 L (74-99) mg/dL Calcium 8.2 L 8.2 L 8.2 L (8.4-10.2) mg/dL AST 25 (14-36) U/L ALT 13 (4-34) U/L Alkaline Phosphatase 89 (38-126) U/L Total Protein 7.3 (6.3-8.2) g/dL Albumin 3.3 L (3.5-5.0) g/dL Current Medications Generic Name Dose Route Start Last Admin Trade Name Freq PRN Reason Stop Dose Admin Albuterol Sulfate 1 puff 02/16/21 16:00 02/18/21 07:29 Albuterol Hfa Inhaler INHALATION 1 puff RT-QID [facility] Administration Ascorbic Acid 500 mg 02/16/21 13:00 02/17/21 08:57 Ascorbic Acid 500 Mg Tab PO 500 mg DAILY [facility] Administration Aspirin 325 mg 02/17/21 09:00 02/17/21 08:57 Aspirin 325 Mg Tab PO 325 mg DAILY [facility] Administration Cholecalciferol 1,000 mcg 02/16/21 09:00 02/16/21 13:43 Cholecalciferol 25 Mcg (1000 Iu) Tablet PO 1,000 mcg DAILY [facility] Administration Clopidogrel Bisulfate 75 mg 02/16/21 09:00 02/17/21 08:57 Clopidogrel 75 Mg Tab PO 75 mg DAILY [facility] Administration Ezetimibe 10 mg 02/16/21 21:00 02/17/21 21:30 Ezetimibe 10 Mg Tab PO 10 mg HS [facility] Administration Enoxaparin Sodium 40 mg 02/16/21 13:00 02/17/21 08:56 Enoxaparin 40 Mg/0.4 Ml Syringe SQ 40 mg DAILY [facility] Administration Glipizide 5 mg 02/16/21 17:30 02/18/21 06:28 Glipizide 5 Mg Tab PO 5 mg AC-BID [facility] Administration Sodium Chloride 1,000 mls @ 75 mls/hr 02/16/21 13:00 02/18/21 06:29 Saline 0.9% IV 75 mls/hr .[id number] [facility] Administration Lactulose 10 gm 02/16/21 13:00 02/17/21 08:56 Lactulose 20 Gm/30 Ml Cup PO Not Given DAILY [facility] Lisinopril 40 mg 02/16/21 09:00 02/17/21 08:57 Lisinopril 20 Mg Tab PO 40 mg DAILY [facility] Administration Magnesium Oxide 400 mg 02/16/21 21:00 02/17/21 21:30 Magnesium Oxide 400 Mg Tab PO 400 mg HS [facility] Administration Metformin HCl 500 mg 02/16/21 09:00 02/17/21 08:57 Metformin 500 Mg Tab PO 500 mg DAILY [facility] Administration Metoprolol Succinate 25 mg 02/16/21 09:00 02/17/21 08:58 Metoprolol Succinate (Er) 25 Mg Tab.Er.24h PO 25 mg DAILY [facility] Administration Miscellaneous Information 1 each 02/16/21 12:50 Magnesium Replacement Protocol 1 Each Misc MISCELLANE DAILY PRN Per Protocol Protocol Miscellaneous Information 1 each 02/16/21 12:50 Potassium Replacement Protocol 1 Each Misc MISCELLANE DAILY PRN Per Protocol Protocol Montelukast Sodium 10 mg 02/16/21 21:00 02/17/21 21:30 Montelukast 10 Mg Tab PO 10 mg HS [facility] Administration Nitroglycerin 0.4 mg 02/16/21 01:43 Nitroglycerin Sl Tabs 0.4 Mg Tab SUBLINGUAL Q5M PRN Chest Pain Oxybutynin Chloride 10 mg 02/16/21 09:00 02/17/21 08:56 Oxybutynin 10 Mg Tab.Er.24 PO 10 mg DAILY [facility] Administration Zinc Sulfate 220 mg 02/16/21 13:00 02/17/21 08:58 Zinc Sulfate 220 Mg Cap PO 220 mg DAILY [facility] Administration Intake and Output 02/17/21 02/18/21 02/18/21 22:59 06:59 14:59 Intake Total 1310 775 Output Total 1800 Balance 1310 -1025 Intake: IV 800 525 Magnesium Sulfate-D5w Pmx 200 1 gm In Dextrose/Water 1 100ml.bag @ 100 mls/hr IVPB Q1H [facility] Rx#: [id number] Sodium Chloride 0.9% 1, 600 525 000 ml @ 75 mls/hr IV . [id number] [facility] Rx#:[id number] Oral 510 250 Output: Urine 1800 Other: Voiding Method Toilet Toilet Bedside Commode Bedside Commode # Voids 2 1 Weight 106 kg 02/18/21 06:54 02/18/21 06:54
[2021-02-18 11:57] LABS: Glucose,Whole Blood 70 mg/dL (75-99)
--- NOTE | 2021-02-18 16:12 | P.HPIM ---
History of Present Illness Patient presents on 75-year-old female admitted for Covid 19 infection. Patient is not requiring any oxygen infectious disease evaluated the patient. Patient doesn't need any systemic steroids patient will be discharged on Coumadin and multivitamins. Patient is also complaining of chest pain because of which cardiology evaluated the patient and chest pain appears to be secondary to mainly her asthma. Echocardiogram is obtain results of which are pending cardiology recommended follow-up as an outpatient. Patient blood pressure is bit elevated amlodipine will be had added and patient will be discharged to follow with Dr. Shelby as an outpatient PHYSICAL EXAMINATION: GENERAL: The patient is alert and oriented x3, not in any acute distress. Well developed, well nourished. HEENT: Pupils are round and equally reacting to light. EOMI. No scleral icterus. No conjunctival pallor. Normocephalic, atraumatic. No pharyngeal erythema. No thyromegaly. CARDIOVASCULAR: S1 and S2 present. No murmurs, rubs, or gallops. PULMONARY: Chest is clear to auscultation, no wheezing or crackles. ABDOMEN: Soft, nontender, nondistended, normoactive bowel sounds. No palpable organomegaly. MUSCULOSKELETAL: No joint swelling or deformity. EXTREMITIES: No cyanosis, clubbing, or pedal edema. NEUROLOGICAL: Gross neurological examination did not reveal any focal deficits. SKIN: No rashes. Covid 19 infection -Chest pain rule out a concurrent syndromes next -First the medical problems and hospital course please refer to documentation from Dr. Muhammad from yesterday. Patient apparently was hyponatremic as well as hypomagnesemic both of which resolved. Patient also had acute renal failure with creatinine of 1.67 which improved as well with IV fluids . Patient's hyponatremia appeared to be secondary to hypovolemia Past Medical History Past Medical History: Asthma, CVA/TIA, Diabetes Mellitus, Hyperlipidemia, Hypertension, Rheumatoid Arthritis (RA) Additional Past Medical History / Comment(s): TIA in 2016 History of Any Multi-Drug Resistant Organisms: None Reported Past Surgical History: Appendectomy, Tubal Ligation Additional Past Surgical History / Comment(s): Colonoscopy Past Anesthesia/Blood Transfusion Reactions: No Reported Reaction Past Psychological History: No Psychological Hx Reported Smoking Status: Never smoker Past Alcohol Use History: None Reported Past Drug Use History: None Reported - Past Family History Father Family Medical History: Cancer, Congestive Heart Failure (CHF) Additional Family Medical History / Comment(s): colon cancer Mother Family Medical History: Rheumatoid Arthritis (RA) Medications and Allergies Home Medications Medication Instructions Recorded Confirmed Type Clopidogrel [Plavix] 75 mg PO DAILY 05/14/19 02/16/21 History Metoprolol Succinate (ER) [Toprol 25 mg PO DAILY 05/14/19 02/16/21 History XL] glipiZIDE [Glucotrol] 5 mg PO AC-BID 05/14/19 02/16/21 History lisinopriL 40 mg PO DAILY 05/14/19 02/16/21 History metFORMIN HCL 500 mg PO DAILY 05/14/19 02/16/21 History Montelukast [Singulair] 10 mg PO HS #30 tab 05/24/19 02/16/21 Rx Albuterol Inhaler [Ventolin Hfa 1 - 2 puff INHALATION RT-QID PRN 06/14/20 02/16/21 History Inhaler] Tolterodine ER [Detrol LA] 4 mg PO DAILY PRN 06/14/20 02/16/21 History Cholecalciferol [Vitamin D3 (25 50 mcg PO DAILY 02/16/21 02/16/21 History Mcg = 1000 Iu)] Ferrous Sulfate [Feosol] 325 mg PO DAILY 02/16/21 02/16/21 History Lactulose [Constulose] 10 gm PO DAILY 02/16/21 02/16/21 History Magnesium Oxide [Wyatt] 500 mg PO HS 02/16/21 02/16/21 History Ascorbic Acid [Vitamin C] 500 mg PO DAILY #30 tab 02/18/21 Rx Ezetimibe [Zetia] 10 mg PO HS #30 tab 02/18/21 Rx Zinc Sulfate [Orazinc] 220 mg PO DAILY #30 cap 02/18/21 Rx amLODIPine [Norvasc] 5 mg PO DAILY #30 tab 02/18/21 Rx Allergies Allergy/AdvReac Type Severity Reaction Status Date / Time atorvastatin [From Lipitor] AdvReac CRAMPS Verified 02/16/21 07:57 latex AdvReac Itching Verified 02/16/21 07:57 Physical Exam Vitals: Vital Signs Temp Pulse Resp BP BP Pulse Ox 02/18/21 12:00 97.6 F 76 16 164/67 95 02/18/21 09:35 98.2 F 70 16 174/74 97 02/18/21 04:55 71 17 168/74 96 02/18/21 01:42 68 17 02/18/21 00:00 68 17 158/67 98 02/17/21 20:00 98.0 F 78 17 169/78 97 Intake and Output 02/18/21 02/18/21 02/18/21 06:59 14:59 22:59 Intake Total 775 354 Output Total 1800 Balance -1025 354 Intake: IV 525 Sodium Chloride 0.9% 1, 525 000 ml @ 75 mls/hr IV . [id number] [facility] Rx#:[id number] Oral 250 354 Output: Urine 1800 Other: Voiding Method Toilet Bedside Commode # Voids 1 1 1 # Bowel Movements 1 1 Weight 106 kg Results CBC & Chem 7: 02/18/21 06:54 02/18/21 06:54 Labs: Abnormal Lab Results - Last 24 Hours (Table) 02/17/21 02/17/21 02/17/21 Range/Units 16:25 17:16 20:02 WBC (3.8-10.6) k/uL RBC (3.80-5.40) m/uL Hgb (11.4-16.0) gm/dL Hct (34.0-46.0) % Sodium 136 L (137-145) mmol/L BUN 32 H (7-17) mg/dL Creatinine 1.48 H (0.52-1.04) mg/dL Glucose (74-99) mg/dL POC Glucose (mg/dL) 117 H 181 H (75-99) mg/dL Calcium 8.2 L (8.4-10.2) mg/dL Albumin 3.3 L (3.5-5.0) g/dL 02/18/21 02/18/21 02/18/21 Range/Units 06:54 06:54 11:54 WBC 2.9 L (3.8-10.6) k/uL RBC 3.26 L (3.80-5.40) m/uL Hgb 9.1 L (11.4-16.0) gm/dL Hct 28.0 L (34.0-46.0) % Sodium (137-145) mmol/L BUN 31 H (7-17) mg/dL Creatinine 1.22 H (0.52-1.04) mg/dL Glucose 65 L (74-99) mg/dL POC Glucose (mg/dL) 70 L (75-99) mg/dL Calcium 8.2 L (8.4-10.2) mg/dL Albumin (3.5-5.0) g/dL Thrombosis Risk Factor Assmnt - Choose All That Apply Any of the Below Risk Factors Present?: Yes Each Factor Represents 1 point: Obesity (BMI >25), Swollen legs (current) Each Risk Factor Represents 3 Points: Age 75 years or older Thrombosis Risk Factor Assessment Total Risk Factor Score: 5 Thrombosis Risk Factor Assessment Level: High Risk
[2021-02-18 16:24] VITALS: BP 154/70; PULSE 74; TEMP 97.8
--- NOTE | 2021-02-18 16:52 | ECHOF ---
Referral Reason:chest pain, shortness of breath MEASUREMENTS -------- HEIGHT: 172.7 cm WEIGHT: 105.7 kg BP: 168/74 IVSd: 1.4 cm (0.6 - 1.1) LVIDd: 3.2 cm (3.9 - 5.3) LVPWd: 1.6 cm (0.6 - 1.1) EDV(Teich): 42 ml IVSs: 2.0 cm LVIDs: 1.6 cm LVPWs: 2.0 cm %IVS Thck: 41 % ESV(Teich): 7 ml EF(Teich): 83 % %FS: 51 % SV(Teich): 35 ml RVIDd: 3.4 cm (< 3.3) IVC: 18.85 mm LALs A4C: 5.6 cm LAAs A4C: 22.5 cm LAESV A-L A4C: 77 ml LAESV MOD A4C: 74 ml LALs A2C: 5.0 cm LAAs A2C: 22.5 cm LAESV A-L A2C: 86 ml LAESV MOD A2C: 81 ml LAESV(A-L): 86 ml LAESV Index (A-L): 39.37 ml/m Ao Diam: 3.0 cm (2.0 - 3.7) LA Diam: 3.3 cm (2.7 - 3.8) AV Cusp: 1.7 cm (1.5 - 2.6) EPSS: 0.5 cm MV E Sriram: 0.95 m/s MV DecT: 244 ms MV Dec Alcorn: 3.9 m/s MV A Sriram: 0.98 m/s MV E/A Ratio: 0.97 MV PHT: 71 ms MV PHT: 97 ms MVA By PHT: 2.3 cm MV Vmax: 1.43 m/s MV Vmean: 0.88 m/s MV maxP.22 mmHg MV meanP.61 mmHg MV VTI: 53.4 cm MR Vmax: 2.50 m/s MR maxP.01 mmHg AV Vmax: 1.37 m/s AV maxP.52 mmHg TR Vmax: 2.13 m/s TR maxP.14 mmHg RAP: 5.00 mmHg RVSP: 23.14 mmHg MV EF SLOPE: 66.48 mm/s (70 - 150) MV EXCURSION: 15.62 mm (> 18.000) FINDINGS -------- This was a technically good study. The left ventricular size is normal. There is moderate concentric left ventricular hypertrophy. O verall left ventricular systolic function is normal with, an EF between 55 - 60 %. Normal LAP Grade 1 Diastolic Dysfunction. The right ventricle is mildly enlarged. LA is moderately dilated 34-39 ml/m2 The right atrial size is normal. Aortic valve is trileaflet and is mildly thickened. The mitral valve is normal. The mitral valve leaflets are moderately thickened. Moderate mitral a nnular calcification present. Mild mitral regurgitation is present. Mitral Valve Area by PHT 2.3c m The peak and mean MV gradients are 8.22mmHg 3.61mmHg as measured by doppler. Mild mitral stenosi s. The tricuspid valve appears structurally normal. Mild tricuspid regurgitation present. Right vent ricular systolic pressure is normal at < 35 mmHg. There is no pulmonic regurgitation present. The aortic root size is normal. Normal inferior vena cava with normal inspiratory collapse consistent with estimated right atrial pre ssure of 5 mmHg. There is no pericardial effusion. CONCLUSIONS -------- 1. The left ventricular size is normal. 2. There is moderate concentric left ventricular hypertrophy. 3. Overall left ventricular systolic function is normal with, an EF between 55 - 60 %. 4. Normal LAP Grade 1 Diastolic Dysfunction. 5. The right ventricle is mildly enlarged. 6. LA is moderately dilated 34-39 ml/m2 7. Aortic valve is trileaflet and is mildly thickened. 8. The mitral valve leaflets are moderately thickened. 9. Moderate mitral annular calcification present. 10. Mild mitral regurgitation is present. 11. Mitral Valve Stenosis MVA By PHT 2.3cm with a Peak/Mean PG 8.22mmHg 3.61mmHg 12. Mild mitral stenosis. 13. Mild tricuspid regurgitation present. 14. There is no pericardial effusion. [employer]ER: Rosa Bishop RDCS
--- NOTE | 2021-02-18 18:23 | PN ---
PROGRESS NOTE DATE OF SERVICE: 02/18/2021 REASON FOR FOLLOWUP: COVID-19 infection. INTERVAL HISTORY: Patient is currently afebrile. The patient is breathing more comfortably. The patient denies having any chest pain. She did have minimal cough. No sputum production. She felt nauseated and had an episode of vomiting. No diarrhea. No abdominal pain and no urinary symptoms. PHYSICAL EXAMINATION: Blood pressure 154/70 with a pulse of 74, temperature 97.8. She is 96% on room air. General description is an elderly female lying in bed in no distress. RESPIRATORY SYSTEM: Unlabored breathing with decreased intensity of breath sounds. No wheeze. HEART: S1, S2. Regular rate and rhythm. ABDOMEN: Soft. No tenderness. LABS: Hemoglobin is 9.1, white count 2.9, BUN of 31, creatinine 1.22. DIAGNOSTIC IMPRESSION AND PLAN: Patient with acute COVID-19 infection in this patient with no evidence of any hypoxemia. No need for supplemental steroids or remdesivir therapy. Patient is on Lovenox, zinc and ascorbic acid; to continue along with respiratory support and monitor clinical course closely. MMODL / IJN: [id number] /
[2021-02-19] MEDS ORDERED: ASPIRIN 81 MG PO SCH (09:00)
== END 2021-02-18 19:15 | disposition home or self-care (01) | DRG 177 ==
LOC: EC 22:44 → 3SCARD 02-16 01:43
PROVIDERS: ADMIT Internal Medicine; ATTEND Internal Medicine
DX: U07.1 COVID-19 (principal); N17.0 Acute kidney failure with tubular necrosis; E87.1 Hypo-osmolality and hyponatremia; J45.901 Unspecified asthma with (acute) exacerbation; D64.9 Anemia, unspecified; D72.819 Decreased white blood cell count, unspecified; E11.9 Type 2 diabetes mellitus without complications; E66.9 Obesity, unspecified; E78.00 Pure hypercholesterolemia, unspecified; E78.5 Hyperlipidemia, unspecified; E83.42 Hypomagnesemia; E86.0 Dehydration; I10 Essential (primary) hypertension; J20.9 Acute bronchitis, unspecified; K21.9 Gastro-esophageal reflux disease without esophagitis; M06.9 Rheumatoid arthritis, unspecified; M19.90 Unspecified osteoarthritis, unspecified site; Z68.36 Body mass index [BMI] 36.0-36.9, adult; Z79.01 Long term (current) use of anticoagulants; Z79.84 Long term (current) use of oral hypoglycemic drugs; Z79.899 Other long term (current) drug therapy; Z80.0 Family history of malignant neoplasm of digestive organs; Z82.49 Family history of ischemic heart disease and other diseases of the circulatory system; Z86.73 Personal history of transient ischemic attack (TIA), and cerebral infarction without residual deficits; Z88.8 Allergy status to other drugs, medicaments and biological substances; R79.89 Other specified abnormal findings of blood chemistry
CPT/HCPCS: 36415; 71045; 78580; 80048; 80053; 80061; 81001; 82728; 83615; 83735; 84145; 84484; 85025; 85379; 85610; 85730; 86140; 93005; 93306; 93970; 94640; 99285

== ENCOUNTER 2021-06-25 15:22 | Emergency (ER) | payer MEDICARE ==
[2021-06-25 15:31] VITALS: TEMP 97.7
--- NOTE | 2021-06-25 16:34 | ED ---
Lower Extremity Injury HPI - General Chief Complaint: Extremity Injury, Lower Stated Complaint: lt ankle/leg pain Time Seen by Provider: 06/25/21 15:32 Source: patient, EMS Mode of arrival: EMS Limitations: physical limitation - History of Present Illness Initial Comments: 75-year-old female presents to emergency Department with chief complaint of left leg pain. Patient states that about 2 days ago she fell while she was sitting on her shower chair. States there was no head injuries but she landed mostly on her left leg. States mostly the pain is located in the distal foot ankle and tib-fib region. States she has bilateral lower extremity edema at baseline for many years. However, she states now it is worst in usual. States initially there was no pain until last night when she began to experience pain with ambulation and weightbearing. She denies any numbness or tingling. - Related Data Home Medications Medication Instructions Recorded Confirmed Clopidogrel [Plavix] 75 mg PO DAILY 05/14/19 02/16/21 Metoprolol Succinate (ER) [Toprol 25 mg PO DAILY 05/14/19 02/16/21 XL] glipiZIDE [Glucotrol] 5 mg PO AC-BID 05/14/19 02/16/21 lisinopriL 40 mg PO DAILY 05/14/19 02/16/21 metFORMIN HCL 500 mg PO DAILY 05/14/19 02/16/21 Albuterol Inhaler [Ventolin Hfa 1 - 2 puff INHALATION RT-QID PRN 06/14/20 02/16/21 Inhaler] Tolterodine ER [Detrol LA] 4 mg PO DAILY PRN 06/14/20 02/16/21 Cholecalciferol [Vitamin D3 (25 50 mcg PO DAILY 02/16/21 02/16/21 Mcg = 1000 Iu)] Ferrous Sulfate [Iron (65 MG 325 mg PO DAILY 02/16/21 02/16/21 Elemental)] Lactulose [Constulose] 10 gm PO DAILY 02/16/21 02/16/21 Magnesium Oxide [Wyatt] 500 mg PO HS 02/16/21 02/16/21 Previous Rx's Medication Instructions Recorded Montelukast [Singulair] 10 mg PO HS #30 tab 05/24/19 Ascorbic Acid [Vitamin C] 500 mg PO DAILY #30 tab 02/18/21 Ezetimibe [Zetia] 10 mg PO HS #30 tab 02/18/21 Zinc Sulfate [Orazinc] 220 mg PO DAILY #30 cap 02/18/21 amLODIPine [Norvasc] 5 mg PO DAILY #30 tab 02/18/21 Allergies Allergy/AdvReac Type Severity Reaction Status Date / Time atorvastatin [From Lipitor] AdvReac CRAMPS Verified 06/25/21 15:31 latex AdvReac Itching Verified 06/25/21 15:31 Review of Systems ROS Statement: Those systems with pertinent positive or pertinent negative responses have been documented in the HPI. ROS Other: All systems not noted in ROS Statement are negative. Past Medical History Past Medical History: Asthma, CVA/TIA, Diabetes Mellitus, Hyperlipidemia, Hypertension, Rheumatoid Arthritis (RA) Additional Past Medical History / Comment(s): TIA in 2016 History of Any Multi-Drug Resistant Organisms: None Reported Past Surgical History: Appendectomy, Tubal Ligation Additional Past Surgical History / Comment(s): Colonoscopy Past Anesthesia/Blood Transfusion Reactions: No Reported Reaction Past Psychological History: No Psychological Hx Reported Smoking Status: Never smoker Past Alcohol Use History: None Reported Past Drug Use History: None Reported - Past Family History Father Family Medical History: Cancer, Congestive Heart Failure (CHF) Additional Family Medical History / Comment(s): colon cancer Mother Family Medical History: Rheumatoid Arthritis (RA) General Exam Limitations: physical limitation General appearance: alert, in no apparent distress, obese Head exam: Present: atraumatic, normocephalic, normal inspection. Absent: other (Negative bowel sign, raccoon eyes, attempted.) Eye exam: Present: normal appearance, PERRL, EOMI Pupils: Present: normal accommodation ENT exam: Present: normal exam, mucous membranes moist, TM's normal bilaterally, normal external ear exam Neck exam: Present: normal inspection, full ROM. Absent: tenderness Respiratory exam: Present: normal lung sounds bilaterally. Absent: respiratory distress, wheezes, rales, rhonchi, stridor Cardiovascular Exam: Present: regular rate, normal rhythm, normal heart sounds. Absent: systolic murmur GI/Abdominal exam: Present: soft. Absent: distended, tenderness, guarding, rebound, rigid Extremities exam: Present: normal inspection, full ROM, tenderness (Left mid foot tenderness. Lateral malleolus tenderness. Some tib-fib tenderness as well. No pain in the knee.), pedal edema (Bilateral lower extremity edema, nonpitting.), other (Faint palpable DP and PT pulses due to edema bilaterally.) Back exam: Present: normal inspection, full ROM. Absent: tenderness Neurological exam: Present: alert, oriented X3 Psychiatric exam: Present: normal affect, normal mood Skin exam: Present: warm, dry, intact, normal color Course Vital Signs 06/25/21 06/25/21 15:28 18:01 Temperature 97.7 F Pulse Rate 75 61 Respiratory 18 16 Rate Blood Pressure 146/82 154/86 O2 Sat by Pulse 98 97 Oximetry Medical Decision Making - Medical Decision Making 75-year-old female presents to emergency Department with chief complaint of left leg pain. On physical examination, she is neurovascularly intact. Bilateral lower extremity edema at baseline. X-rays of the foot ankle and tib-fib are unremarkable. Patient is to follow with PCP. Case discussed with Dr. Cardoza. Disposition Clinical Impression: Ankle injury, Fall Disposition: HOME SELF-CARE Condition: Stable Instructions (If sedation given, give patient instructions): Fall Prevention (ED) Additional Instructions: Please return to the Emergency Department if symptoms worsen or any other concerns. Is patient prescribed a controlled substance at d/c from ED?: No Referrals: Nenita Shelby MD [Primary Care Provider] - 1-2 days Time of Disposition: 17:32
--- NOTE | 2021-06-25 16:51 | XR ---
EXAMINATION TYPE: XR ankle complete LT DATE OF EXAM: 06/25/2021 COMPARISON: NONE HISTORY: Fall. Pain. TECHNIQUE: 3 view FINDINGS: There is soft tissue swelling around the ankle. There are large plantar and Achilles calcan eal spurs. Ankle mortise is anatomic. There is spurring of the anterior and posterior malleolus. Ther e is moderate spurring of the intertarsal joints. IMPRESSION: Degenerative changes. Soft tissue swelling. No fracture seen.
--- NOTE | 2021-06-25 16:52 | XR ---
EXAMINATION TYPE: XR foot complete LT DATE OF EXAM: 06/25/2021 COMPARISON: NONE HISTORY: Fall. Pain. TECHNIQUE: 3 views FINDINGS: There is soft tissue swelling around the foot. There is plantar and Achilles calcaneal spur ring. Metatarsals are intact. I see no evidence of a fracture. IMPRESSION: Soft tissue swelling. No fracture seen.
--- NOTE | 2021-06-25 16:53 | XR ---
EXAMINATION TYPE: XR tibia fibula LT, 2 views DATE OF EXAM: 06/25/2021 Comparison: None Clinical History: 75-year-old female fall Findings: Advanced degenerative change at the knee with severe loss of cartilage and joint space throughout all 3 compartments. No acute fracture of the more proximal to mid tibia or fibula. Generalized soft tiss ue swelling. Ankle and foot reported separately. There is some degenerative spurring noted at the ank le and also along the dorsal midfoot on the lateral view. Marked dorsal soft tissue swelling. Impression: No acute fracture of the tibia or fibula identified. Generalized soft tissue swelling. 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 Degenerative change at the ankle and dorsal midfoot as well.
[2021-06-25 18:02] VITALS: BP 154/86; PULSE 61; RESP 16
== END 2021-06-25 19:58 | disposition home or self-care (01) ==
LOC: EC 15:22
DX: S99.912A Unspecified injury of left ankle, initial encounter (principal); E11.9 Type 2 diabetes mellitus without complications; I10 Essential (primary) hypertension; E78.5 Hyperlipidemia, unspecified; J45.909 Unspecified asthma, uncomplicated; M06.9 Rheumatoid arthritis, unspecified; Z79.02 Long term (current) use of antithrombotics/antiplatelets; Z79.84 Long term (current) use of oral hypoglycemic drugs; Z79.899 Other long term (current) drug therapy; Z82.49 Family history of ischemic heart disease and other diseases of the circulatory system; Z86.73 Personal history of transient ischemic attack (TIA), and cerebral infarction without residual deficits; Z90.49 Acquired absence of other specified parts of digestive tract; W07.XXXA Fall from chair, initial encounter
CPT/HCPCS: 99284

== ENCOUNTER 2021-10-11 03:58 | Emergency (ER) | payer MEDICARE ==
[2021-10-11 04:12] VITALS: RESP 18; TEMP 98.2
[2021-10-11] MEDS ORDERED: TRANEXAMIC ACID 1,000 MG in SODIUM CHLORIDE 0.9% 100 ML IVPB ONE (05:14)
[2021-10-11] MEDS ORDERED: cloNIDine HCL 0.2 MG TAB PO STA (05:14)
--- NOTE | 2021-10-11 07:22 | ED ---
General Adult HPI - General Chief complaint: Recheck/Abnormal Lab/Rx Stated complaint: Nosebleed Time Seen by Provider: 10/11/21 05:13 Source: patient, EMS Mode of arrival: EMS Limitations: no limitations - History of Present Illness Initial comments: Patient is 75-year-old woman with history of previous epistaxis requiring packing. She states she had bleeding from the right naris today and felt she should be seen here. The bleeding has subsequently stopped. No symptoms of anemia. No lightheadedness, palpitations, dyspnea, chest pain, diaphoresis or syncope. -: hour(s) Severity scale (1-10): 0 Consistency: now resolved Improves with: none Worsens with: none Associated Symptoms: denies other symptoms - Related Data Home Medications Medication Instructions Recorded Confirmed Metoprolol Succinate (ER) [Toprol 25 mg PO DAILY 05/14/19 10/13/21 XL] Albuterol Inhaler [Ventolin Hfa 1 - 2 puff INHALATION RT-QID PRN 06/14/20 10/13/21 Inhaler] Tolterodine ER [Detrol LA] 4 mg PO DAILY 06/14/20 10/13/21 Ferrous Sulfate [Iron (65 MG 325 mg PO DAILY 02/16/21 10/13/21 Elemental)] Acetaminophen Tab [Tylenol] 1,000 mg PO Q6HR PRN 10/13/21 10/13/21 Cholecalciferol [Vitamin D3 (25 50 mcg PO DAILY 10/13/21 10/13/21 Mcg = 1000 Iu)] Ezetimibe [Zetia] 10 mg PO DAILY 10/13/21 10/13/21 Levothyroxine Sodium [Synthroid] 25 mcg PO DAILY 10/13/21 10/13/21 glipiZIDE [Glucotrol] 5 mg PO TID 10/13/21 10/13/21 guaiFENesin [Diabetic Tussin] 200 mg PO Q6H PRN 10/13/21 10/13/21 prednisoLONE ACETATE 1% OPHTH 1 drops BOTH EYES QID 10/13/21 10/13/21 [Pred Forte 1%] Previous Rx's Medication Instructions Recorded Montelukast [Singulair] 10 mg PO HS #30 tab 05/24/19 Cefuroxime Axetil [Ceftin] 500 mg PO BID 7 Days #14 tab 10/25/21 Docusate [Colace] 100 mg PO BID cap 10/25/21 Furosemide [Lasix] 40 mg PO DAILY 30 Days #30 tablet 10/25/21 INSULIN ASPART (NovoLOG) [NovoLOG 0 unit SQ ACHS ml 10/25/21 (formulary)] Pantoprazole Sodium [Protonix] 40 mg PO DAILY 30 Days #30 tab 10/25/21 amLODIPine [Norvasc] 10 mg PO DAILY tab 10/25/21 predniSONE [Deltasone] 40 mg PO DAILY tab 10/25/21 Allergies Allergy/AdvReac Type Severity Reaction Status Date / Time atorvastatin [From Lipitor] AdvReac CRAMPS Verified 10/13/21 10:53 latex AdvReac Itching Verified 10/13/21 10:53 Review of Systems ROS Statement: Those systems with pertinent positive or pertinent negative responses have been documented in the HPI. ROS Other: All systems not noted in ROS Statement are negative. Constitutional: Denies: fever, chills ENT: Reports: epistaxis Respiratory: Denies: cough, dyspnea Cardiovascular: Denies: chest pain, palpitations Gastrointestinal: Denies: vomiting Skin: Denies: rash Neurological: Denies: headache Past Medical History Past Medical History: Asthma, CVA/TIA, Diabetes Mellitus, Hyperlipidemia, Hypertension, Rheumatoid Arthritis (RA) Additional Past Medical History / Comment(s): TIA in 2016 History of Any Multi-Drug Resistant Organisms: None Reported Past Surgical History: Appendectomy, Tubal Ligation Additional Past Surgical History / Comment(s): Colonoscopy, cataracts surg Past Anesthesia/Blood Transfusion Reactions: No Reported Reaction Past Psychological History: No Psychological Hx Reported Smoking Status: Never smoker Past Alcohol Use History: None Reported Past Drug Use History: None Reported - Past Family History Father Family Medical History: Cancer, Congestive Heart Failure (CHF) Additional Family Medical History / Comment(s): colon cancer Mother Family Medical History: Rheumatoid Arthritis (RA) General Exam Limitations: no limitations General appearance: alert, in no apparent distress Head exam: Present: atraumatic, normocephalic Eye exam: Present: normal appearance ENT exam: Present: normal oropharynx Respiratory exam: Present: normal lung sounds bilaterally. Absent: respiratory distress, wheezes, rales, rhonchi, stridor Cardiovascular Exam: Present: regular rate, normal rhythm, normal heart sounds. Absent: systolic murmur, diastolic murmur, rubs, gallop GI/Abdominal exam: Present: soft. Absent: tenderness Neurological exam: Present: alert Skin exam: Present: warm, dry, intact, normal color. Absent: rash Course Vital Signs 10/11/21 10/11/21 10/11/21 04:08 05:11 06:27 Temperature 98.2 F Pulse Rate 64 88 86 Respiratory 18 18 18 Rate Blood Pressure 208/90 198/98 200/89 O2 Sat by Pulse 98 97 97 Oximetry 10/11/21 10/11/21 06:58 07:41 Temperature Pulse Rate 89 88 Respiratory 18 18 Rate Blood Pressure 178/54 128/75 O2 Sat by Pulse 97 99 Oximetry Disposition Clinical Impression: Hypertension, Epistaxis Disposition: HOME SELF-CARE Condition: Good Instructions (If sedation given, give patient instructions): Nosebleed (ED), Hypertension (ED) Is patient prescribed a controlled substance at d/c from ED?: No Referrals: Nenita Shelby MD [Primary Care Provider] - 1-2 days
[2021-10-11 07:42] VITALS: BP 128/75; PULSE 88
== END 2021-10-11 07:43 | disposition home or self-care (01) ==
LOC: EC 03:58
DX: R04.0 Epistaxis (principal); I10 Essential (primary) hypertension; E11.9 Type 2 diabetes mellitus without complications; E78.5 Hyperlipidemia, unspecified; J45.909 Unspecified asthma, uncomplicated; M06.9 Rheumatoid arthritis, unspecified; Z79.52 Long term (current) use of systemic steroids; Z79.4 Long term (current) use of insulin; Z79.84 Long term (current) use of oral hypoglycemic drugs; Z79.899 Other long term (current) drug therapy; Z79.51 Long term (current) use of inhaled steroids
CPT/HCPCS: 96365; 99283

== ENCOUNTER 2021-10-13 09:33 | Inpatient (IN) | payer MEDICARE ==
[2021-10-13] MEDS ORDERED: ALBUTEROL NEBULIZED 2.5 MG/3 ML INHALATION STA (09:37)
[2021-10-13] MEDS ORDERED: IPRATROPIUM 0.5 MG/2.5 ML NEBU INHALATION STA (09:37)
[2021-10-13] MEDS ORDERED: methylPREDNISolone SOD SUCCI 125 MG/2 ML VIAL IV STA (09:37)
--- NOTE | 2021-10-13 09:41 | ED ---
General Adult HPI - General Stated complaint: chest tightness, cough Time Seen by Provider: 10/13/21 09:33 Source: patient, RN notes reviewed, old records reviewed - History of Present Illness Initial comments: This is a 75-year-old female with a past medical history significant for asthma diabetes and rheumatoid arthritis. Patient states she has had no heart history and no COPD history no smoking. Patient states she woke up at 4:30 this morning having a hard time breathing and she was wheezing. Patient states he Rests with her she called EMS she was given one treatment she still states she is having difficulty breathing and has tightness in her chest. Patient denies any fever chills. Patient states she does have a cough with yellow sputum. Patient states she has had the COVID vaccine but not the booster. Patient denies any abdominal pain patient denies nausea vomiting. - Related Data Home Medications Medication Instructions Recorded Confirmed Clopidogrel [Plavix] 75 mg PO DAILY 05/14/19 10/13/21 Metoprolol Succinate (ER) [Toprol 25 mg PO DAILY 05/14/19 10/13/21 XL] lisinopriL 40 mg PO DAILY 05/14/19 10/13/21 Albuterol Inhaler [Ventolin Hfa 1 - 2 puff INHALATION RT-QID PRN 06/14/20 10/13/21 Inhaler] Tolterodine ER [Detrol LA] 4 mg PO DAILY 06/14/20 10/13/21 Ferrous Sulfate [Iron (65 MG 325 mg PO DAILY 02/16/21 10/13/21 Elemental)] Acetaminophen Tab [Tylenol Tab] 1,000 mg PO Q6HR PRN 10/13/21 10/13/21 Cholecalciferol [Vitamin D3 (25 50 mcg PO DAILY 10/13/21 10/13/21 Mcg = 1000 Iu)] Ezetimibe [Zetia] 10 mg PO DAILY 10/13/21 10/13/21 Levothyroxine Sodium [Synthroid] 25 mcg PO DAILY 10/13/21 10/13/21 glipiZIDE [Glucotrol] 5 mg PO TID 10/13/21 10/13/21 guaiFENesin [Diabetic Tussin] 200 mg PO Q6H PRN 10/13/21 10/13/21 predniSONE 5 mg PO DAILY 10/13/21 10/13/21 prednisoLONE ACETATE 1% OPHTH 1 drops BOTH EYES QID 10/13/21 10/13/21 [Pred Forte 1%] Previous Rx's Medication Instructions Recorded Montelukast [Singulair] 10 mg PO HS #30 tab 05/24/19 Allergies Allergy/AdvReac Type Severity Reaction Status Date / Time atorvastatin [From Lipitor] AdvReac CRAMPS Verified 10/13/21 10:53 latex AdvReac Itching Verified 10/13/21 10:53 Review of Systems ROS Statement: Those systems with pertinent positive or pertinent negative responses have been documented in the HPI. ROS Other: All systems not noted in ROS Statement are negative. Past Medical History Past Medical History: Asthma, CVA/TIA, Diabetes Mellitus, Hyperlipidemia, Hypertension, Rheumatoid Arthritis (RA) Additional Past Medical History / Comment(s): TIA in 2016 History of Any Multi-Drug Resistant Organisms: None Reported Past Surgical History: Appendectomy, Tubal Ligation Additional Past Surgical History / Comment(s): Colonoscopy, cataracts surg Past Anesthesia/Blood Transfusion Reactions: No Reported Reaction Past Psychological History: No Psychological Hx Reported Smoking Status: Never smoker Past Alcohol Use History: None Reported Past Drug Use History: None Reported - Past Family History Father Family Medical History: Cancer, Congestive Heart Failure (CHF) Additional Family Medical History / Comment(s): colon cancer Mother Family Medical History: Rheumatoid Arthritis (RA) General Exam - General Exam Comments Initial Comments: GENERAL: Patient is well-developed and well-nourished. Patient is nontoxic and well- hydrated and is in moderate distress. ENT: Neck is soft and supple. No significant lymphadenopathy is noted. Oropharynx is clear. Moist mucous membranes. Neck has full range of motion without eliciting any pain. EYES: The sclera were anicteric and conjunctiva were pink and moist. Extraocular movements were intact and pupils were equal round and reactive to light. Eyelids were unremarkable. PULMONARY: Patient had decreased breath sounds throughout and expiratory wheezing. CARDIOVASCULAR: There is a regular rate and rhythm without any murmurs gallops or rubs. ABDOMEN: Soft and nontender with normal bowel sounds. SKIN: Skin is clear with no lesions or rashes and otherwise unremarkable. NEUROLOGIC: Patient is alert and oriented x3. Cranial nerves II through XII are grossly intact. Motor and sensory are also intact. Normal speech, volume and content. Symmetrical smile. MUSCULOSKELETAL: Normal extremities with adequate strength and full range of motion. LYMPHATICS: No significant lymphadenopathy is noted PSYCHIATRIC: Normal psychiatric evaluation. Course Vital Signs 10/13/21 10/13/21 10/13/21 09:59 10:07 10:08 Temperature 99.8 F H Pulse Rate 112 H 112 H 116 H Respiratory 18 Rate Blood Pressure 193/92 O2 Sat by Pulse 99 Oximetry 10/13/21 10/13/21 10/13/21 10:09 10:22 10:26 Temperature Pulse Rate 116 H 120 H 122 H Respiratory 18 Rate Blood Pressure 184/87 O2 Sat by Pulse 100 Oximetry 10/13/21 10/13/21 10:45 11:46 Temperature Pulse Rate 113 H 104 H Respiratory 20 18 Rate Blood Pressure 164/73 143/69 O2 Sat by Pulse 97 97 Oximetry Medical Decision Making - Medical Decision Making EKG shows atrial fibrillation at a rate of 130 bpm QRS is 98 QT interval 328 QTC is 482. Patient has no ST segment elevation or slight ST segment depression in leads 3 and aVF. There is quite a bit of noise and EKG and it is difficult to ascertain if this is atrial fibrillation versus sinus rhythm a repeat EKG will be done. After patient received multiple breathing treatments and steroids and EKG was repeated because she was much calm her and no longer tachycardic EKG showed normal sinus rhythm at 92 bpm ID interval is 140 QRS is 92 QT interval 394 QTC is 47. Patient's EKG shows no ST segment elevation or depression. Chest x-ray shows right lower lobe infiltrate possible pneumonia. Patient received Rocephin emergency department. Patient also received Vasotec for high blood pressure. I spoke with Dr. Chapa he agreed to admit the patient admitted the patient wrote admitting orders. Troponins to be repeating cardiology will be consulted. - Lab Data Result diagrams: 10/13/21 09:58 10/13/21 09:58 Lab Results 10/13/21 10/13/21 10/13/21 Range/Units 09:42 09:58 09:58 WBC 7.3 (3.8-10.6) k/uL RBC 3.09 L (3.80-5.40) m/uL Hgb 8.6 L (11.4-16.0) gm/dL Hct 26.7 L (34.0-46.0) % MCV 86.4 (80.0-100.0) fL MCH 27.8 (25.0-35.0) pg MCHC 32.2 (31.0-37.0) g/dL RDW 14.1 (11.5-15.5) % Plt Count 204 (150-450) k/uL MPV 8.5 Neutrophils % 52 % Lymphocytes % 40 % Monocytes % 4 % Eosinophils % 3 % Basophils % 1 % Neutrophils # 3.8 (1.3-7.7) k/uL Lymphocytes # 3.0 (1.0-4.8) k/uL Monocytes # 0.3 (0-1.0) k/uL Eosinophils # 0.2 (0-0.7) k/uL Basophils # 0.0 (0-0.2) k/uL PT 9.7 (9.0-12.0) sec INR 0.9 (<1.2) APTT 19.9 L (22.0-30.0) sec Sodium (137-145) mmol/L Potassium (3.5-5.1) mmol/L Chloride (98-107) mmol/L Carbon Dioxide (22-30) mmol/L Anion Gap mmol/L BUN (7-17) mg/dL Creatinine (0.52-1.04) mg/dL Est GFR (CKD-EPI)AfAm (>60 ml/min/1.73 sqM) Est GFR (CKD-EPI)NonAf (>60 ml/min/1.73 sqM) Glucose (74-99) mg/dL Plasma Lactic Acid Bryan (0.7-2.0) mmol/L Calcium (8.4-10.2) mg/dL Magnesium (1.6-2.3) mg/dL Total Bilirubin (0.2-1.3) mg/dL AST (14-36) U/L ALT (4-34) U/L Alkaline Phosphatase (38-126) U/L Troponin I (0.000-0.034) ng/mL NT-Pro-B Natriuret Pep pg/mL Total Protein (6.3-8.2) g/dL Albumin (3.5-5.0) g/dL Coronavirus (PCR) Not Detected (Not Detectd) 12/05/21 12/05/21 12/05/21 Range/Units 09:58 09:58 09:58 WBC (3.8-10.6) k/uL RBC (3.80-5.40) m/uL Hgb (11.4-16.0) gm/dL Hct (34.0-46.0) % MCV (80.0-100.0) fL MCH (25.0-35.0) pg MCHC (31.0-37.0) g/dL RDW (11.5-15.5) % Plt Count (150-450) k/uL MPV Neutrophils % % Lymphocytes % % Monocytes % % Eosinophils % % Basophils % % Neutrophils # (1.3-7.7) k/uL Lymphocytes # (1.0-4.8) k/uL Monocytes # (0-1.0) k/uL Eosinophils # (0-0.7) k/uL Basophils # (0-0.2) k/uL PT (9.0-12.0) sec INR (<1.2) APTT (22.0-30.0) sec Sodium 138 (137-145) mmol/L Potassium 4.2 (3.5-5.1) mmol/L Chloride 104 (98-107) mmol/L Carbon Dioxide 24 (22-30) mmol/L Anion Gap 10 mmol/L BUN 29 H (7-17) mg/dL Creatinine 1.36 H (0.52-1.04) mg/dL Est GFR (CKD-EPI)AfAm 43 (>60 ml/min/1.73 sqM) Est GFR (CKD-EPI)NonAf 38 (>60 ml/min/1.73 sqM) Glucose 172 H (74-99) mg/dL Plasma Lactic Acid Bryan 1.5 (0.7-2.0) mmol/L Calcium 8.2 L (8.4-10.2) mg/dL Magnesium 1.3 L (1.6-2.3) mg/dL Total Bilirubin 0.3 (0.2-1.3) mg/dL AST 18 (14-36) U/L ALT 11 (4-34) U/L Alkaline Phosphatase 98 (38-126) U/L Troponin I 0.057 H* (0.000-0.034) ng/mL NT-Pro-B Natriuret Pep pg/mL Total Protein 7.5 (6.3-8.2) g/dL Albumin 3.4 L (3.5-5.0) g/dL Coronavirus (PCR) (Not Detectd) 10/13/21 Range/Units 09:58 WBC (3.8-10.6) k/uL RBC (3.80-5.40) m/uL Hgb (11.4-16.0) gm/dL Hct (34.0-46.0) % MCV (80.0-100.0) fL MCH (25.0-35.0) pg MCHC (31.0-37.0) g/dL RDW (11.5-15.5) % Plt Count (150-450) k/uL MPV Neutrophils % % Lymphocytes % % Monocytes % % Eosinophils % % Basophils % % Neutrophils # (1.3-7.7) k/uL Lymphocytes # (1.0-4.8) k/uL Monocytes # (0-1.0) k/uL Eosinophils # (0-0.7) k/uL Basophils # (0-0.2) k/uL PT (9.0-12.0) sec INR (<1.2) APTT (22.0-30.0) sec Sodium (137-145) mmol/L Potassium (3.5-5.1) mmol/L Chloride (98-107) mmol/L Carbon Dioxide (22-30) mmol/L Anion Gap mmol/L BUN (7-17) mg/dL Creatinine (0.52-1.04) mg/dL Est GFR (CKD-EPI)AfAm (>60 ml/min/1.73 sqM) Est GFR (CKD-EPI)NonAf (>60 ml/min/1.73 sqM) Glucose (74-99) mg/dL Plasma Lactic Acid Bryan (0.7-2.0) mmol/L Calcium (8.4-10.2) mg/dL Magnesium (1.6-2.3) mg/dL Total Bilirubin (0.2-1.3) mg/dL AST (14-36) U/L ALT (4-34) U/L Alkaline Phosphatase (38-126) U/L Troponin I (0.000-0.034) ng/mL NT-Pro-B Natriuret Pep 2540 pg/mL Total Protein (6.3-8.2) g/dL Albumin (3.5-5.0) g/dL Coronavirus (PCR) (Not Detectd) Disposition Clinical Impression: Asthma with acute exacerbation, Hypertension, Elevated troponin, Pneumonia Disposition: ADMITTED IP TO THIS HOSP Referrals: Nenita Shelby MD [Primary Care Provider] - 1-2 days Time of Disposition: 12:48
[2021-10-13] MEDS ORDERED: ACETAMINOPHEN TAB 500 MG TAB PO STA (09:44)
[2021-10-13] MEDS ORDERED: cefTRIAXone IN SWFI 1,000 MG/10 ML SYRINGE IVP STA (09:44)
[2021-10-13 10:16] LABS: Basophils % (A) 1 %; Eosinophils # (A) 0.2 k/uL (0-0.7); Eosinophils % (A) 3 %; HCT 26.7 % (34.0-46.0); HGB 8.6 gm/dL (11.4-16.0); Lymphocytes % (A) 40 %; MCH 27.8 pg (25.0-35.0); MCHC 32.2 g/dL (31.0-37.0); MCV 86.4 fL (80.0-100.0); Mean Platelet Volume 8.5; Monocytes # (A) 0.3 k/uL (0-1.0); Monocytes % (A) 4 %; Neutrophils # (A) 3.8 k/uL (1.3-7.7); Neutrophils % (A) 52 %; Platelet Count 204 k/uL (150-450); RBC 3.09 m/uL (3.80-5.40); RDW 14.1 % (11.5-15.5); WBC 7.3 k/uL (3.8-10.6)
[2021-10-13] MEDS ORDERED: ENALAPRILAT 1.25 MG/ML 1 ML VIAL IVP STA (10:29)
[2021-10-13 10:30] LABS: INR 0.9 (<1.2); Prothrombin Time 9.7 sec (9.0-12.0)
[2021-10-13 10:34] LABS: Albumin 3.4 g/dL (3.5-5.0); Calcium 8.2 mg/dL (8.4-10.2); Magnesium 1.3 mg/dL (1.6-2.3); Potassium 4.2 mmol/L (3.5-5.1); Total Bilirubin 0.3 mg/dL (0.2-1.3); Total Protein 7.5 g/dL (6.3-8.2)
--- NOTE | 2021-10-13 10:45 | XR ---
EXAMINATION TYPE: XR chest 1V portable DATE OF EXAM: 10/13/2021 HISTORY: Shortness of breath. COMPARISON: 02/16/2021 TECHNIQUE: Single view of the chest is submitted. FINDINGS: Demonstrated are scattered senescent parenchymal change. Vague reticulonodular density throughout the right lung may reflect developing infiltrate. Correlate clinically. The heart is stable. Hilar and mediastinal structures are within normal limits. Degenerative changes are seen of the dorsal spine. IMPRESSION: 1. Vague reticulonodular density throughout the right lung may reflect developing infiltrate. Correl ate clinically.
[2021-10-13 10:52] LABS: Partial Thromboplastin Time 19.9 sec (22.0-30.0)
[2021-10-13] MEDS ORDERED: AZITHROMYCIN 500 MG in SODIUM CHLORIDE 0.9% 250 ML IVPB STA (12:48)
[2021-10-13] MEDS ORDERED: PNEUMONIA PROTOCOL UTILIZED 1 EACH MISC PO PRN (12:48)
[2021-10-13] MEDS: IPRATROPIUM-ALBUTEROL 3 ML NEB INHALATION PRN ×2 (15:11→20:33)
[2021-10-13] MEDS ORDERED: HEPARIN SODIUM 1,000 UN/ML (10ML VL) IV ONE (16:15)
[2021-10-13] MEDS ORDERED: HEPARIN SODIUM 1,000 UN/ML (10ML VL) IV PRN (16:15)
[2021-10-13] MEDS ORDERED: Magnesium Replacement Protocol 1 EACH MISC MISCELLANE PRN (16:16)
[2021-10-13 16:44] LABS: Glucose,Whole Blood 232 mg/dL (75-99)
[2021-10-13] MEDS ORDERED: FUROSEMIDE 10 MG/ML 2 ML VIAL IV ONE (17:00)
[2021-10-13 17:08] LABS: Basophils % (A) 0 %; Eosinophils % (A) 1 %; HGB 8.1 gm/dL (11.4-16.0); Hypochromasia Slight; Lymphocytes # (A) 0.2 k/uL (1.0-4.8); Lymphocytes % (A) 4 %; MCH 28.5 pg (25.0-35.0); MCHC 32.3 g/dL (31.0-37.0); MCV 88.2 fL (80.0-100.0); Mean Platelet Volume 8.5; Monocytes # (A) 0.1 k/uL (0-1.0); Monocytes % (A) 1 %; Neutrophils # (A) 4.4 k/uL (1.3-7.7); Neutrophils % (A) 94 %; Platelet Count 162 k/uL (150-450); RBC 2.83 m/uL (3.80-5.40); RDW 14.2 % (11.5-15.5); WBC 4.7 k/uL (3.8-10.6)
[2021-10-13 17:18] LABS: INR 0.9 (<1.2); Partial Thromboplastin Time 20.3 sec (22.0-30.0)
[2021-10-13] MEDS: HEPARIN SOD,PORK IN 0.45% NACL 25,000 UNIT in 0.45% NACL 1 250ML.BAG IV SCH (17:44)
[2021-10-13] MEDS: methylPREDNISolone SOD SUCCI 125 MG/2 ML VIAL IV SCH (17:45)
[2021-10-13] MEDS: prednisoLONE ACETATE 1% OPHTH DROPS 5 ML BTL BOTH EYES SCH ×2 (17:45→20:31)
[2021-10-13] MEDS: MAGNESIUM SULFATE-D5W PMX 1 GM in DEXTROSE/WATER 1 100ML.BAG IVPB SCH ×3 (17:45→22:44)
[2021-10-13] MEDS: glipiZIDE 5 MG TAB PO SCH ×2 (17:52→20:24)
[2021-10-13 20:02] LABS: Glucose,Whole Blood 435 mg/dL (75-99)
[2021-10-13] MEDS: MONTELUKAST 10 MG TAB PO SCH (20:23)
[2021-10-13] MEDS: INSULIN ASPART (NovoLOG) 100 UNIT/ML VIAL SQ SCH (20:28)
[2021-10-13] MEDS: ACETAMINOPHEN TAB 500 MG TAB PO PRN (22:46)
[2021-10-14] MEDS: methylPREDNISolone SOD SUCCI 125 MG/2 ML VIAL IV SCH ×4 (00:03→17:13)
[2021-10-14] MEDS ORDERED: HEPARIN SODIUM 1,000 UN/ML (10ML VL) IVP ONE (01:25)
[2021-10-14 05:46] LABS: Glucose,Whole Blood 186 mg/dL (75-99)
[2021-10-14] MEDS: INSULIN ASPART (NovoLOG) 100 UNIT/ML VIAL SQ SCH ×4 (05:49→20:30)
[2021-10-14] MEDS: LEVOTHYROXINE 25 MCG TAB PO SCH (05:49)
--- NOTE | 2021-10-14 07:17 | XR ---
EXAMINATION TYPE: XR chest 1V portable DATE OF EXAM: 10/14/2021 HISTORY: Shortness of breath. COMPARISON: 10/13/2021 TECHNIQUE: Single view of the chest is submitted. FINDINGS: Demonstrated are scattered senescent parenchymal change. Improved aeration left lower lobe as well as resolution previously noted reticulonodular infiltrates right lower lobe. The heart is stable. Hilar and mediastinal structures are within normal limits. Degenerative changes are seen of the dorsal spine. IMPRESSION: 1. Improved aeration left lower lobe as well as resolution previously noted reticulonodular infiltra caty right lower lobe.
[2021-10-14] MEDS: IPRATROPIUM-ALBUTEROL 3 ML NEB INHALATION PRN ×3 (07:36→21:46)
[2021-10-14 08:11] LABS: Basophils % (A) 0 %; Eosinophils % (A) 0 %; HCT 23.3 % (34.0-46.0); HGB 7.7 gm/dL (11.4-16.0); Lymphocytes # (A) 0.5 k/uL (1.0-4.8); Lymphocytes % (A) 15 %; MCH 28.2 pg (25.0-35.0); MCV 85.2 fL (80.0-100.0); Mean Platelet Volume 8.5; Monocytes # (A) 0.1 k/uL (0-1.0); Monocytes % (A) 4 %; Neutrophils # (A) 2.5 k/uL (1.3-7.7); Neutrophils % (A) 80 %; Platelet Count 168 k/uL (150-450); RBC 2.74 m/uL (3.80-5.40); RDW 14.2 % (11.5-15.5); WBC 3.2 k/uL (3.8-10.6)
[2021-10-14 08:35] LABS: Calcium 8.5 mg/dL (8.4-10.2); Magnesium 2.2 mg/dL (1.6-2.3); Potassium 4.5 mmol/L (3.5-5.1)
[2021-10-14] MEDS: lisinopriL 20 MG TAB PO SCH (08:56)
[2021-10-14] MEDS: AZITHROMYCIN 500 MG TAB PO SCH (08:56)
[2021-10-14] MEDS: OXYBUTYNIN 10 MG TAB.ER.24 PO SCH (08:56)
[2021-10-14] MEDS: EZETIMIBE 10 MG TAB PO SCH (08:56)
[2021-10-14] MEDS: prednisoLONE ACETATE 1% OPHTH DROPS 5 ML BTL BOTH EYES SCH ×4 (08:57→20:35)
[2021-10-14] MEDS: glipiZIDE 5 MG TAB PO SCH ×3 (08:57→20:30)
[2021-10-14] MEDS: CLOPIDOGREL 75 MG TAB PO SCH (08:57)
[2021-10-14] MEDS ORDERED: METOPROLOL SUCCINATE (ER) 25 MG TAB.ER.24H PO SCH (09:00)
--- NOTE | 2021-10-14 09:23 | P.HPIM ---
History of Present Illness H&P Date: 10/13/21 Chief Complaint: Shortness of breath Patient is a 75-year-old female with a known history of asthma, history of CVA/TIA with no residual weakness, diabetes type 2, hypertension, hyperlipidemia, rheumatoid arthritis on prednisone daily presents to ER with complaints of shortness of breath started around 4 AM this morning. Patient felt like chest congestion and denied any chest pain. Patient states that she is having mild cough and congestion for the past couple of days. Denied any worsening leg swelling than usual. Patient was having worsening symptoms and called EMS. Denied any fever or chills. No nausea vomiting or abdominal pain or diarrhea. No headache or dizziness or diaphoresis. He states that she is fully vaccinated for code 19 infection. Denied any loss of taste or smell sensation. Laboratory data on admission showed WBC 7.3 hemoglobin 8.6 and platelets 204 BUN 29 and creatinine 1.36 Magnesium 1.3 troponin 0.057 and 4.360 ProBNP 2540 and code 90 PCR not detected. Chest x-ray showed a vague reticular nodular density throughout the right lung may reflect developing infiltrate. Correlate clinically. Review of Systems Constitutional: Patient denies any fever or chills . No generalized weakness or weight loss. Abdomen: Patient denied nausea vomiting and diarrhea and abdominal pain. Cardiovascular: Patient denied any complaints of chest pain. Chest congestion and cough and shortness of breath. No leg swelling.. Respiratory: Does have cough with minimal to light yellow sputum production. Shortness of breath. Neurologic: Patient denied any numbness or tingling headache. Musculoskeletal: Patient denies any complaints of joint swelling or deformity. Skin: Negative Psychiatric: Negative Endocrine: No heat or cold intolerance. No recent weight gain. Genitourinary: No dysuria or hematuria. All other 14 point ROS negative except the above Past Medical History Past Medical History: Asthma, CVA/TIA, Diabetes Mellitus, Hyperlipidemia, H ypertension, Rheumatoid Arthritis (RA) Additional Past Medical History / Comment(s): TIA in 2016 History of Any Multi-Drug Resistant Organisms: None Reported Past Surgical History: Appendectomy, Tubal Ligation Additional Past Surgical History / Comment(s): Colonoscopy, cataracts surg Past Anesthesia/Blood Transfusion Reactions: No Reported Reaction Past Psychological History: No Psychological Hx Reported Smoking Status: Never smoker Past Alcohol Use History: None Reported Past Drug Use History: None Reported - Past Family History Father Family Medical History: Cancer, Congestive Heart Failure (CHF) Additional Family Medical History / Comment(s): colon cancer Mother Family Medical History: Rheumatoid Arthritis (RA) Medications and Allergies Home Medications Medication Instructions Recorded Confirmed Type Clopidogrel [Plavix] 75 mg PO DAILY 05/14/19 10/13/21 History Metoprolol Succinate (ER) [Toprol 25 mg PO DAILY 05/14/19 10/13/21 History XL] lisinopriL 40 mg PO DAILY 05/14/19 10/13/21 History Montelukast [Singulair] 10 mg PO HS #30 tab 05/24/19 10/13/21 Rx Albuterol Inhaler [Ventolin Hfa 1 - 2 puff INHALATION RT-QID PRN 06/14/20 10/13/21 History Inhaler] Tolterodine ER [Detrol LA] 4 mg PO DAILY 06/14/20 10/13/21 History Ferrous Sulfate [Iron (65 MG 325 mg PO DAILY 02/16/21 10/13/21 History Elemental)] Acetaminophen Tab [Tylenol Tab] 1,000 mg PO Q6HR PRN 10/13/21 10/13/21 History Cholecalciferol [Vitamin D3 (25 50 mcg PO DAILY 10/13/21 10/13/21 History Mcg = 1000 Iu)] Ezetimibe [Zetia] 10 mg PO DAILY 10/13/21 10/13/21 History Levothyroxine Sodium [Synthroid] 25 mcg PO DAILY 10/13/21 10/13/21 History glipiZIDE [Glucotrol] 5 mg PO TID 10/13/21 10/13/21 History guaiFENesin [Diabetic Tussin] 200 mg PO Q6H PRN 10/13/21 10/13/21 History predniSONE 5 mg PO DAILY 10/13/21 10/13/21 History prednisoLONE ACETATE 1% OPHTH 1 drops BOTH EYES QID 10/13/21 10/13/21 History [Pred Forte 1%] Allergies Allergy/AdvReac Type Severity Reaction Status Date / Time atorvastatin [From Lipitor] AdvReac CRAMPS Verified 10/13/21 10:53 latex AdvReac Itching Verified 10/13/21 10:53 Physical Exam Vitals: Vital Signs Temp Pulse Resp BP Pulse Ox 12/05/21 15:23 80 10/13/21 15:11 78 10/13/21 15:09 98.2 F 80 18 132/80 98 10/13/21 11:46 104 H 18 143/69 97 10/13/21 10:45 113 H 20 164/73 97 10/13/21 10:26 122 H 10/13/21 10:22 120 H 18 184/87 100 10/13/21 10:09 116 H 10/13/21 10:08 116 H 10/13/21 10:07 99.8 F H 112 H 18 193/92 99 10/13/21 09:59 112 H Intake and Output 10/13/21 10/13/21 10/13/21 06:59 14:59 22:59 Other: Weight 119.295 kg PHYSICAL EXAMINATION: Patient is lying in the bed comfortably, no acute distress, awake alert and oriented.. HEENT: Normocephalic. Neck is supple. Pupils reactive. Nostrils clear. Oral cavity is moist. Neck reveals no JVD, carotid bruits, or thyromegaly. CHEST EXAMINATION: Trachea is central. Symmetrical expansion. Bilateral diffuse wheezing and scattered rhonchi/crackles.. CARDIAC: Normal S1, S2 with no gallops. No murmurs ABDOMEN: Soft. Bowel sounds normal. No organomegaly. No abdominal bruits. Extremities: Trace bilateral pedal edema. No clubbing or cyanosis Neurologically awake, alert, oriented x3 with well-coordinated movements. No focal deficits noted Skin: No rash or skin lesions. Psychiatric: Coperative. Nonsuicidal Musculoskeletal: No joint swelling or deformity. Normal range of motion. Results CBC & Chem 7: 10/14/21 07:31 10/14/21 07:31 Labs: Abnormal Lab Results - Last 24 Hours (Table) 10/13/21 10/13/21 10/13/21 Range/Units 09:58 09:58 09:58 RBC 3.09 L (3.80-5.40) m/uL Hgb 8.6 L (11.4-16.0) gm/dL Hct 26.7 L (34.0-46.0) % APTT 19.9 L (22.0-30.0) sec BUN 29 H (7-17) mg/dL Creatinine 1.36 H (0.52-1.04) mg/dL Glucose 172 H (74-99) mg/dL Calcium 8.2 L (8.4-10.2) mg/dL Magnesium 1.3 L (1.6-2.3) mg/dL Troponin I (0.000-0.034) ng/mL Albumin 3.4 L (3.5-5.0) g/dL 10/13/21 10/13/21 Range/Units 09:58 15:09 RBC (3.80-5.40) m/uL Hgb (11.4-16.0) gm/dL Hct (34.0-46.0) % APTT (22.0-30.0) sec BUN (7-17) mg/dL Creatinine (0.52-1.04) mg/dL Glucose (74-99) mg/dL Calcium (8.4-10.2) mg/dL Magnesium (1.6-2.3) mg/dL Troponin I 0.057 H* 4.360 H* (0.000-0.034) ng/mL Albumin (3.5-5.0) g/dL Thrombosis Risk Factor Assmnt - DVT/VTE Prophylaxis DVT/VTE Prophylaxis: Pharmacologic Prophylaxis ordered Assessment and Plan Assessment: Acute non-ST elevated OH elevated troponin level. Acute CHF. Ejection fraction not known. Acute asthma exacerbation Possible right lower lobe pneumonia Acute kidney injury likely prerenal with creatinine level I.36 on admission. hypomagnesemia 1.3 replaced. Hypertension Hyperlipidemia Rheumatoid arthritis on prednisone 5 mg daily Normocytic anemia/anemia of chronic disease History of CVA/TIA no residual weakness. Morbid obesity BMI 40.2 DVT prophylaxis patient is already on heparin drip Plan: Patient will be continued on telemetry monitoring. Serial troponin level. Patient will be started on heparin drip due to non-ST elevated OH. Patient will be continued on Plavix and Toprol and statins. Continue with antibiotics in the form of ceftriaxone and azithromycin and follow-up pro-calcitonin level and repeat chest x-ray tomorrow. Continue with IV Solu-Medrol and duo nebs and monitor breathing status closely and supplement oxygen as needed. Continue with home medications and follow closely. Cardiology was consulted and 2-D echocardiogram will be ordered. Time with Patient: Greater than 30
--- NOTE | 2021-10-14 10:59 | P.CRDCN ---
History of Present Illness Consult date: 10/14/21 Chief complaint: Chest discomfort History of present illness: This is a 75-year-old female patient with a past medical history significant for diabetes and hypertension and dyslipidemia and also history of CVA/TIA who was admitted to the hospital for further evaluation off shortness of breath. The patient was in her usual state of good about 4:00 this morning when she woke up complaining of shortness of breath. She does have asthma and she felt that her asthma was acting out on her and for that reason she decided to come to the hospital. She reported no symptoms of chest pain or chest discomfort nor dizziness or lightheadedness nor presyncope or syncope. She underwent a workup in the hospital including an EKG showing sinus rhythm without any significant ST or T-wave abnormalities. The troponin came in to be abnormal and seems to be trending up. The chest x-ray showed infiltrate consistent with pneumonia versus heart failure. Her hemoglobin has dropped to about 7.3 with a baseline hemoglobin in the past around 10. Her platelets are within normal limits. WBC is low. NT proBNP was 2540. She was tested negative for COVID-19 infection. On examination she does have extensive bilateral expiratory wheezing and also her blood pressure was significantly elevated when she presented to the hospital. Previous echocardiogram from earlier this year revealed normal left ventricular systolic function with mitral annular calcification and mild mitral stenosis. Past Medical History Past Medical History: Asthma, CVA/TIA, Diabetes Mellitus, Hyperlipidemia, Hypertension, Rheumatoid Arthritis (RA) Additional Past Medical History / Comment(s): TIA in 2016 History of Any Multi-Drug Resistant Organisms: None Reported Past Surgical History: Appendectomy, Tubal Ligation Additional Past Surgical History / Comment(s): Colonoscopy, cataracts surg Past Anesthesia/Blood Transfusion Reactions: No Reported Reaction Past Psychological History: No Psychological Hx Reported Smoking Status: Never smoker Past Alcohol Use History: None Reported Past Drug Use History: None Reported - Past Family History Father Family Medical History: Cancer, Congestive Heart Failure (CHF) Additional Family Medical History / Comment(s): colon cancer Mother Family Medical History: Rheumatoid Arthritis (RA) Medications and Allergies Home Medications Medication Instructions Recorded Confirmed Type Clopidogrel [Plavix] 75 mg PO DAILY 05/14/19 10/13/21 History Metoprolol Succinate (ER) [Toprol 25 mg PO DAILY 05/14/19 10/13/21 History XL] lisinopriL 40 mg PO DAILY 05/14/19 10/13/21 History Montelukast [Singulair] 10 mg PO HS #30 tab 05/24/19 10/13/21 Rx Albuterol Inhaler [Ventolin Hfa 1 - 2 puff INHALATION RT-QID PRN 06/14/20 10/13/21 History Inhaler] Tolterodine ER [Detrol LA] 4 mg PO DAILY 06/14/20 10/13/21 History Ferrous Sulfate [Iron (65 MG 325 mg PO DAILY 02/16/21 10/13/21 History Elemental)] Acetaminophen Tab [Tylenol Tab] 1,000 mg PO Q6HR PRN 10/13/21 10/13/21 History Cholecalciferol [Vitamin D3 (25 50 mcg PO DAILY 10/13/21 10/13/21 History Mcg = 1000 Iu)] Ezetimibe [Zetia] 10 mg PO DAILY 10/13/21 10/13/21 History Levothyroxine Sodium [Synthroid] 25 mcg PO DAILY 10/13/21 10/13/21 History glipiZIDE [Glucotrol] 5 mg PO TID 10/13/21 10/13/21 History guaiFENesin [Diabetic Tussin] 200 mg PO Q6H PRN 10/13/21 10/13/21 History predniSONE 5 mg PO DAILY 10/13/21 10/13/21 History prednisoLONE ACETATE 1% OPHTH 1 drops BOTH EYES QID 10/13/21 10/13/21 History [Pred Forte 1%] Allergies Allergy/AdvReac Type Severity Reaction Status Date / Time atorvastatin [From Lipitor] AdvReac CRAMPS Verified 10/13/21 10:53 latex AdvReac Itching Verified 10/13/21 10:53 Physical Exam Vitals: Vital Signs Temp Pulse Pulse Resp BP BP Pulse Ox 10/14/21 08:36 97.8 F 86 18 182/74 94 L 10/14/21 08:03 18 10/14/21 07:49 72 10/14/21 07:37 72 10/14/21 04:00 98.0 F 71 18 168/82 95 10/14/21 02:00 76 18 10/14/21 00:00 98.3 F 76 18 174/76 95 10/13/21 20:48 86 10/13/21 20:33 83 10/13/21 20:00 88 18 10/13/21 19:45 98.1 F 88 18 134/77 97 10/13/21 16:00 97.9 F 78 18 177/90 95 10/13/21 15:23 80 10/13/21 15:11 78 10/13/21 15:09 98.2 F 80 18 132/80 98 10/13/21 11:46 104 H 18 143/69 97 Intake and Output 10/13/21 10/14/21 10/14/21 22:59 06:59 14:59 Intake Total 240 78.008 Balance 240 78.008 Intake: Intake, IV Titration 78.008 Amount Heparin Sod,Pork in 0.45% 78.008 NaCl 25,000 unit In 0.45 % NaCl 1 250ml.bag @ 8. 383 UNITS/KG/HR 10.001 mls/hr IV .Q24H [facility] Rx#: [id number] Oral 240 Other: Voiding Method Bedside Commode Bedside Commode Bedside Commode Diaper Diaper # Voids 1 1 0 Weight 119.295 kg 120 kg - Constitutional General appearance: no acute distress - Respiratory Respiratory: bilateral: wheezing - Cardiovascular Rhythm: regular Heart sounds: normal: S1, S2 Results 10/14/21 07:31 10/14/21 07:31 Cardiac Enzymes 10/13/21 10/13/21 10/13/21 Range/Units 09:58 15:09 17:50 Troponin I 0.057 H* 4.360 H* 5.770 H* (0.000-0.034) ng/mL 10/14/21 Range/Units 07:31 Troponin I 8.020 H* (0.000-0.034) ng/mL Coagulation 10/13/21 10/13/21 10/14/21 Range/Units 16:39 22:54 07:31 PT 10.0 (9.0-12.0) sec APTT 20.3 L 30.0 52.0 H (22.0-30.0) sec CBC 10/13/21 10/14/21 Range/Units 16:39 07:31 WBC 4.7 3.2 L (3.8-10.6) k/uL RBC 2.83 L 2.74 L (3.80-5.40) m/uL Hgb 8.1 L 7.7 L (11.4-16.0) gm/dL Hct 25.0 L 23.3 L (34.0-46.0) % Plt Count 162 168 (150-450) k/uL Comprehensive Metabolic Panel 10/14/21 Range/Units 07:31 Sodium 136 L (137-145) mmol/L Potassium 4.5 (3.5-5.1) mmol/L Chloride 102 (98-107) mmol/L Carbon Dioxide 24 (22-30) mmol/L BUN 40 H (7-17) mg/dL Creatinine 1.68 H (0.52-1.04) mg/dL Glucose 155 H (74-99) mg/dL Calcium 8.5 (8.4-10.2) mg/dL Current Medications Generic Name Dose Route Start Last Admin Trade Name Freq PRN Reason Stop Dose Admin Acetaminophen 1,000 mg 10/13/21 22:33 10/13/21 22:46 Acetaminophen Tab 500 Mg Tab PO 1,000 mg Q6HR PRN Administration Pain or Fever > 100.5 Albuterol/Ipratropium 3 ml 10/13/21 12:48 10/14/21 07:36 Ipratropium-Albuterol 3 Ml Neb INHALATION 3 ml RT-Q4H PRN Administration shortness of breath Azithromycin 500 mg 10/14/21 09:00 10/14/21 08:56 Azithromycin 500 Mg Tab PO 10/15/21 09:01 500 mg DAILY [facility] Administration Clopidogrel Bisulfate 75 mg 10/14/21 09:00 10/14/21 08:57 Clopidogrel 75 Mg Tab PO 75 mg DAILY [facility] Administration Ezetimibe 10 mg 10/14/21 09:00 10/14/21 08:56 Ezetimibe 10 Mg Tab PO 10 mg DAILY [facility] Administration Furosemide 20 mg 10/14/21 21:00 Furosemide 10 Mg/Ml 2 Ml Vial IV Q12HR [facility] Glipizide 5 mg 10/13/21 16:00 10/14/21 08:57 Glipizide 5 Mg Tab PO 5 mg TID [facility] Administration Heparin Sodium (Porcine) 0 unit 10/13/21 16:15 Heparin Sodium 1,000 Un/Ml (10ml Vl) IV PER PROTOCOL PRN Low PTT Protocol Ceftriaxone Sodium 2 gm/ 50 mls @ 100 mls/hr 10/14/21 09:00 10/14/21 08:56 Sodium Chloride IVPB 10/17/21 09:29 100 mls/hr Q24HR [facility] Administration Heparin Sodium/Sodium Chloride 250 mls @ 10.001 mls/hr 10/13/21 16:15 10/14/21 01:32 25,000 unit/ Sodium Chloride IV 11.383 units/kg/hr .Q24H [facility] 13.579 mls/hr Titration Protocol 8.383 UNITS/KG/HR Insulin Aspart 0 unit 10/13/21 21:00 10/14/21 05:49 Insulin Aspart (Novolog) 100 Unit/Ml Vial SQ 3 unit ACHS [facility] Administration Protocol Levothyroxine Sodium 25 mcg 10/14/21 06:30 10/14/21 05:49 Levothyroxine 25 Mcg Tab PO 25 mcg DAILY@0630 [facility] Administration Lisinopril 40 mg 10/14/21 09:00 10/14/21 08:56 Lisinopril 20 Mg Tab PO 40 mg DAILY [facility] Administration Methylprednisolone Sodium Succinate 60 mg 10/13/21 18:00 10/14/21 05:50 Methylprednisolone Sod Succi 125 Mg/2 Ml Vial IV 60 mg Q6HR [facility] Administration Miscellaneous Information 1 each 10/13/21 12:48 Pneumonia Protocol Utilized 1 Each Misc PO ONCE PRN Per Protocol Miscellaneous Information 1 each 10/13/21 16:16 Magnesium Replacement Protocol 1 Each Misc MISCELLANE DAILY PRN Per Protocol Protocol Montelukast Sodium 10 mg 10/13/21 21:00 10/13/21 20:23 Montelukast 10 Mg Tab PO 10 mg HS [facility] Administration Oxybutynin Chloride 10 mg 10/14/21 09:00 10/14/21 08:56 Oxybutynin 10 Mg Tab.Er.24 PO 10 mg DAILY [facility] Administration Prednisolone Acetate 1 drops 10/13/21 18:00 10/14/21 08:57 Prednisolone Acetate 1% Ophth Drops 5 Ml Btl BOTH EYES 1 drops QID [facility] Administration Intake and Output 10/13/21 10/14/21 10/14/21 22:59 06:59 14:59 Intake Total 240 78.008 Balance 240 78.008 Intake: Intake, IV Titration 78.008 Amount Heparin Sod,Pork in 0.45% 78.008 NaCl 25,000 unit In 0.45 % NaCl 1 250ml.bag @ 8. 383 UNITS/KG/HR 10.001 mls/hr IV .Q24H [facility] Rx#: [id number] Oral 240 Other: Voiding Method Bedside Commode Bedside Commode Bedside Commode Diaper Diaper # Voids 1 1 0 Weight 119.295 kg 120 kg 10/14/21 07:31 12 07:31 Assessment and Plan Assessment: Assessment #1 hypertension emergency #2 evidence of myocardial injury likely secondary to hypertension emergency. Severe/obstructive CAD to be ruled out #3 anemia which seems to be new diagnosis the patient #3 renal failure #4 bilateral expiratory wheezing could be related to cardiac asthma #5 history of TIA/CVA #64 multiple comorbid conditions Plan #1 continue IV heparin for additional 24 hours #2 continue antiplatelet #3 DC beta prisca in view of the severe expiratory wheezing #4 add Norvasc to the current medical regimen to help lowering the blood pressure #5 obtain an echocardiogram with Doppler to assess for any evidence of wall motion abnormalities #6 add Lasix IV #7 continue monitor the kidney function and electrolytes #8 follow-up with the patient
[2021-10-14] MEDS ORDERED: VANCOMYCIN IV PER PHARMACY 1 EACH MISC MISCELLANE PRN (11:36)
[2021-10-14] MEDS ORDERED: VANCOMYCIN 1,750 MG in SODIUM CHLORIDE 0.9% 500 ML 500 ML IVPB ONE (12:00)
[2021-10-14 12:20] LABS: Glucose,Whole Blood 242 mg/dL (75-99)
[2021-10-14 15:07] LABS: Prothrombin Time 10.6 sec (9.0-12.0)
[2021-10-14 16:57] LABS: Glucose,Whole Blood 222 mg/dL (75-99)
--- NOTE | 2021-10-14 17:00 | ECHOF ---
Referral Reason:elevated troponin MEASUREMENTS -------- HEIGHT: 172.7 cm WEIGHT: 119.7 kg BP: 168/82 IVSd: 1.4 cm (0.6 - 1.1) LVIDd: 3.7 cm (3.9 - 5.3) LVPWd: 1.8 cm (0.6 - 1.1) EDV(Teich): 58 ml IVSs: 1.9 cm LVIDs: 1.7 cm LVPWs: 2.1 cm %IVS Thck: 34 % ESV(Teich): 8 ml EF(Teich): 85 % %FS: 54 % SV(Teich): 49 ml RVIDd: 3.7 cm (< 3.3) LALs A4C: 6.4 cm LAAs A4C: 26.9 cm LAESV A-L A4C: 95 ml LAESV MOD A4C: 96 ml Ao Diam: 2.3 cm (2.0 - 3.7) LA Diam: 5.2 cm (2.7 - 3.8) AV Cusp: 1.5 cm (1.5 - 2.6) EPSS: 0.4 cm MV E Sriram: 1.06 m/s MV DecT: 217 ms MV Dec Bleckley: 4.9 m/s MV A Sriram: 1.16 m/s MV E/A Ratio: 0.92 MV PHT: 63 ms LVOT Vmax: 1.18 m/s LVOT maxP.56 mmHg AV Vmax: 1.48 m/s AV maxP.76 mmHg TR Vmax: 3.64 m/s TR maxP.98 mmHg RAP: 5.00 mmHg RVSP: 57.98 mmHg MV EF SLOPE: 42.92 mm/s (70 - 150) MV EXCURSION: 12.56 mm (> 18.000) FINDINGS -------- Sinus rhythm. This was a technically adequate study. The left ventricular size is normal. There is moderate concentric left ventricular hypertrophy. O verall left ventricular systolic function is normal with, an EF between 55 - 60 %. The right ventricle is mildly enlarged. The left atrium is markedly dilated. The right atrium was not well visualized. Interatrial and interventricular septum intact. There is no evidence of aortic regurgitation. There is no evidence of aortic stenosis. Mild mitral regurgitation is present. Moderate tricuspid regurgitation present. There is moderate to severe pulmonary hypertension. The right ventricular systolic pressure, as measured by Doppler, is 57.98mmHg. The pulmonic valve was not well visualized. The aortic root size is normal. IVC Not well visulized. There is no pericardial effusion. CONCLUSIONS -------- 1. The left ventricular size is normal. 2. There is moderate concentric left ventricular hypertrophy. 3. Overall left ventricular systolic function is normal with, an EF between 55 - 60 %. 4. The right ventricle is mildly enlarged. 5. The left atrium is markedly dilated. 6. Mild mitral regurgitation is present. 7. Moderate tricuspid regurgitation present. 8. There is moderate to severe pulmonary hypertension. 9. The right ventricular systolic pressure, as measured by Doppler, is 57.98mmHg. POSTERIOR PERICARD IAL SPACE WITH PERICARDIAL THICKENING. TRAFFIC OBSERVER: Bailey Marcum RDCS
[2021-10-14] MEDS: HEPARIN SOD,PORK IN 0.45% NACL 25,000 UNIT in 0.45% NACL 1 250ML.BAG IV SCH (17:20)
--- NOTE | 2021-10-14 18:57 | P.PN ---
Subjective Progress Note Date: 10/14/21 Patient is a 75-year-old female with a known history of asthma, history of CVA/TIA with no residual weakness, diabetes type 2, hypertension, hyperlipidemia, rheumatoid arthritis on prednisone daily presents to ER with complaints of shortness of breath started around 4 AM this morning. Patient felt like chest congestion and denied any chest pain. Patient states that she is having mild cough and congestion for the past couple of days. Denied any worsening leg swelling than usual. Patient was having worsening symptoms and called EMS. Denied any fever or chills. No nausea vomiting or abdominal pain or diarrhea. No headache or dizziness or diaphoresis. He states that she is fully vaccinated for code 19 infection. Denied any loss of taste or smell sensation. Laboratory data on admission showed WBC 7.3 hemoglobin 8.6 and platelets 204 BUN 29 and creatinine 1.36 Magnesium 1.3 troponin 0.057 and 4.360 ProBNP 2540 and covid-19 PCR not detected. Chest x-ray showed a vague reticular nodular density throughout the right lung may reflect developing infiltrate. Correlate clinically. This is Dr. Shelby dictating I am assuming care of this patient is still [facility] were covering for me up to this point On 10/14/2021 patient was seen and examined on the telemetry floor she is alert and oriented 3 in no apparent distress there is no fever or chills no headache or dizziness no chest pain no shortness of breath she has occasional cough with minimal sputum production there is no nausea or vomiting no abdominal pain no diarrhea no blood in the stools no burning with urination no frequency or urgency and no hematuria. Patient had blood culture initially reported this morning as positive for gram-positive cocci, she was started on IV vancomycin, infectious disease consultation was requested, however subsequently, culture was reported as coag-negative gram-positive cocci possible contamination, IV vancomycin was discontinued. Objective - Vital Signs Vital signs: Vital Signs Temp 97.8 F 10/14/21 08:36 Pulse 86 10/14/21 08:36 Resp 18 10/14/21 08:36 BP 182/74 10/14/21 08:36 Pulse Ox 94 L 10/14/21 08:36 Intake & Output 10/13/21 10/14/21 10/14/21 18:59 06:59 18:59 Intake Total 240 78.008 Balance 240 78.008 Weight 119.295 kg 120 kg Intake: Intake, IV Titration 78.008 Amount Heparin Sod,Pork in 0.45% 78.008 NaCl 25,000 unit In 0.45 % NaCl 1 250ml.bag @ 8. 383 UNITS/KG/HR 10.001 mls/hr IV .Q24H [facility] Rx#: [id number] Oral 240 Other: Voiding Method Bedside Commode Bedside Commode Diaper Diaper # Voids 1 0 - Exam In general patient is alert and oriented x 3 in no distress HEENT head normocephalic and atraumatic Neck is supple no JVD no goiter no lymphadenopathy no carotid bruit Chest examination reveals scattered crackles bilaterally with wheezing Cardiac exam reveals regular heart sounds S1 and S2 no gallops no murmurs Abdomen is soft nontender no organomegaly with normal bowel sounds Extremity exam reveals no edema no cyanosis or clubbing Neurological examination reveals no gross focal deficits - Labs CBC & Chem 7: 10/14/21 07:31 10/14/21 07:31 Labs: Abnormal Lab Results - Last 24 Hours (Table) 10/13/21 10/13/21 10/13/21 Range/Units 09:58 09:58 15:09 WBC (3.8-10.6) k/uL RBC (3.80-5.40) m/uL Hgb (11.4-16.0) gm/dL Hct (34.0-46.0) % Lymphocytes # (1.0-4.8) k/uL APTT 19.9 L (22.0-30.0) sec Sodium (137-145) mmol/L BUN (7-17) mg/dL Creatinine (0.52-1.04) mg/dL Glucose (74-99) mg/dL POC Glucose (mg/dL) (75-99) mg/dL Troponin I 0.057 H* 4.360 H* (0.000-0.034) ng/mL Procalcitonin (0.02-0.09) ng/mL 10/13/21 10/13/21 10/13/21 Range/Units 16:39 16:39 16:42 WBC (3.8-10.6) k/uL RBC 2.83 L (3.80-5.40) m/uL Hgb 8.1 L (11.4-16.0) gm/dL Hct 25.0 L (34.0-46.0) % Lymphocytes # 0.2 L (1.0-4.8) k/uL APTT 20.3 L (22.0-30.0) sec Sodium (137-145) mmol/L BUN (7-17) mg/dL Creatinine (0.52-1.04) mg/dL Glucose (74-99) mg/dL POC Glucose (mg/dL) 232 H (75-99) mg/dL Troponin I (0.000-0.034) ng/mL Procalcitonin (0.02-0.09) ng/mL 10/13/21 10/13/21 10/13/21 Range/Units 17:50 17:50 19:52 WBC (3.8-10.6) k/uL RBC (3.80-5.40) m/uL Hgb (11.4-16.0) gm/dL Hct (34.0-46.0) % Lymphocytes # (1.0-4.8) k/uL APTT (22.0-30.0) sec Sodium (137-145) mmol/L BUN (7-17) mg/dL Creatinine (0.52-1.04) mg/dL Glucose (74-99) mg/dL POC Glucose (mg/dL) 435 H (75-99) mg/dL Troponin I 5.770 H* (0.000-0.034) ng/mL Procalcitonin 0.56 H (0.02-0.09) ng/mL 10/14/21 10/14/21 10/14/21 Range/Units 05:44 07:31 07:31 WBC 3.2 L (3.8-10.6) k/uL RBC 2.74 L (3.80-5.40) m/uL Hgb 7.7 L (11.4-16.0) gm/dL Hct 23.3 L (34.0-46.0) % Lymphocytes # 0.5 L (1.0-4.8) k/uL APTT (22.0-30.0) sec Sodium 136 L (137-145) mmol/L BUN 40 H (7-17) mg/dL Creatinine 1.68 H (0.52-1.04) mg/dL Glucose 155 H (74-99) mg/dL POC Glucose (mg/dL) 186 H (75-99) mg/dL Troponin I (0.000-0.034) ng/mL Procalcitonin (0.02-0.09) ng/mL 10/14/21 10/14/21 Range/Units 07:31 07:31 WBC (3.8-10.6) k/uL RBC (3.80-5.40) m/uL Hgb (11.4-16.0) gm/dL Hct (34.0-46.0) % Lymphocytes # (1.0-4.8) k/uL APTT 52.0 H (22.0-30.0) sec Sodium (137-145) mmol/L BUN (7-17) mg/dL Creatinine (0.52-1.04) mg/dL Glucose (74-99) mg/dL POC Glucose (mg/dL) (75-99) mg/dL Troponin I 8.020 H* (0.000-0.034) ng/mL Procalcitonin (0.02-0.09) ng/mL Microbiology - Last 24 Hours (Table) 10/13/21 09:48 Blood Culture Gram Stain - Preliminary Blood 10/13/21 09:48 Blood Culture - Final Blood Assessment and Plan Plan: 1. Acute non-ST elevated CT elevated troponin level. Patient started on IV heparin cardiology consultation requested 2. Acute CHF exacerbation, with elevated BNP, echocardiogram ordered 3. Acute asthma exacerbation, patient has known history of asthma, she had severe wheezing on presentation which is improving 4. Right lower lobe pneumonia, maintained on IV Rocephin and IV Zithromax, sputum culture ordered. 5. Acute kidney injury likely prerenal with creatinine level I.36 on admission. 6. hypomagnesemia 1.3 on admission , replaced. 7. Underlying history of Hypertension 8. Hyperlipidemia 9. Rheumatoid arthritis on prednisone 5 mg daily 10. Normocytic anemia/anemia of chronic disease 11. 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 12. Morbid obesity BMI 40.2 DVT prophylaxis patient is already on heparin drip Patient will be continued on telemetry monitoring. Serial troponin level. Patient will be started on heparin drip due to non-ST elevated CT. Patient will be continued on Plavix and Toprol and statins. Continue with antibiotics in the form of ceftriaxone and azithromycin and follow-up pro-calcitonin level and repeat chest x-ray tomorrow. Continue with IV Solu-Medrol and duo nebs and monitor breathing status closely and supplement oxygen as needed. Continue with home medications and follow closely. Cardiology was consulted and 2-D echocardiogram will be ordered.
[2021-10-14 20:22] LABS: Glucose,Whole Blood 218 mg/dL (75-99)
[2021-10-14] MEDS: ACETAMINOPHEN TAB 500 MG TAB PO PRN (20:30)
[2021-10-14] MEDS: MONTELUKAST 10 MG TAB PO SCH (20:30)
[2021-10-14] MEDS ORDERED: FUROSEMIDE 10 MG/ML 2 ML VIAL IV SCH (21:00)
[2021-10-15] MEDS: methylPREDNISolone SOD SUCCI 125 MG/2 ML VIAL IV SCH ×5 (00:54→20:24)
[2021-10-15 02:41] LABS: % Iron Saturation 13.8 (12.00-45.00)
[2021-10-15] MEDS: LEVOTHYROXINE 25 MCG TAB PO SCH (04:32)
[2021-10-15 05:55] LABS: Glucose,Whole Blood 134 mg/dL (75-99)
[2021-10-15] MEDS: INSULIN ASPART (NovoLOG) 100 UNIT/ML VIAL SQ SCH ×4 (06:10→20:23)
[2021-10-15 06:57] LABS: Basophils % (A) 0 %; Eosinophils % (A) 0 %; HCT 25.5 % (34.0-46.0); HGB 8.4 gm/dL (11.4-16.0); Lymphocytes # (A) 0.6 k/uL (1.0-4.8); Lymphocytes % (A) 15 %; MCH 28.3 pg (25.0-35.0); MCHC 32.7 g/dL (31.0-37.0); MCV 86.4 fL (80.0-100.0); Mean Platelet Volume 8.3; Monocytes # (A) 0.2 k/uL (0-1.0); Monocytes % (A) 4 %; Neutrophils # (A) 2.9 k/uL (1.3-7.7); Neutrophils % (A) 79 %; Platelet Count 168 k/uL (150-450); RBC 2.95 m/uL (3.80-5.40); RDW 14.3 % (11.5-15.5); WBC 3.7 k/uL (3.8-10.6)
[2021-10-15 07:08] LABS: Albumin 3.7 g/dL (3.5-5.0); Calcium 8.6 mg/dL (8.4-10.2); Total Bilirubin 0.3 mg/dL (0.2-1.3); Total Protein 8.3 g/dL (6.3-8.2)
--- NOTE | 2021-10-15 07:32 | P.PN ---
Subjective Progress Note Date: 10/15/21 Principal diagnosis: Hypertension emergency The patient is a pleasant 75-year-old female patient with a past medical history significant for asthma and hypertension and dyslipidemia who was admitted to the hospital with hypertension emergency complicated by acute non-ST deviation myocardial infarction as well as heart failure. The patient was seen this morning. Yesterday she was experiencing bilateral expiratory wheezing which we thought it could be related to cardiac asthma. Beta prisca was stopped. She was started on Lasix IV. She was seen this morning that she stated that the shortness of breath has improved and no symptoms of chest pain or chest discomfort. On examination she stated have bilateral expiratory wheezing but that has improved. I'm going to increase the dose of Lasix to 40 mg IV twice a day with continue monitoring the kidney function as well as electrolytes. Beside that I would increase the dose of Norvasc to 10 mg by mouth daily 2 better control the blood pressure. She is on antiplatelet as well as high intensity statin would continue that. The echo was reviewed and showed normal left ventricular systolic function without any eviden ce of foreign motion abnormalities. Objective - Vital Signs Vital signs: Vital Signs Temp 97.7 F 10/15/21 04:00 Pulse 70 10/15/21 04:00 Resp 20 10/15/21 04:00 BP 184/95 10/15/21 05:45 Pulse Ox 97 10/15/21 04:00 Intake & Output 10/14/21 10/15/21 10/15/21 18:59 06:59 18:59 Intake Total 411.992 Balance 411.992 Weight 123 kg Intake: Intake, IV Titration 171.992 Amount Heparin Sod,Pork in 0.45% 171.992 NaCl 25,000 unit In 0.45 % NaCl 1 250ml.bag @ 8. 383 UNITS/KG/HR 10.001 mls/hr IV .Q24H [facility] Rx#: [id number] Oral 240 Other: Voiding Method Bedside Commode Bedside Commode Diaper Diaper # Voids 2 1 # Bowel Movements 0 - Constitutional General appearance: Present: no acute distress - Respiratory Respiratory: bilateral: rhonchi - Cardiovascular Rhythm: regular Heart sounds: normal: S1, S2 - Labs CBC & Chem 7: 10/15/21 06:31 10/15/21 06:31 Labs: Abnormal Lab Results - Last 24 Hours (Table) 10/14/21 10/14/21 10/14/21 Range/Units 07:31 07:31 07:31 WBC 3.2 L (3.8-10.6) k/uL RBC 2.74 L (3.80-5.40) m/uL Hgb 7.7 L (11.4-16.0) gm/dL Hct 23.3 L (34.0-46.0) % Lymphocytes # 0.5 L (1.0-4.8) k/uL APTT 52.0 H (22.0-30.0) sec Sodium 136 L (137-145) mmol/L BUN 40 H (7-17) mg/dL Creatinine 1.68 H (0.52-1.04) mg/dL Glucose 155 H (74-99) mg/dL POC Glucose (mg/dL) (75-99) mg/dL Iron (50-170) ug/dL Troponin I (0.000-0.034) ng/mL Total Protein (6.3-8.2) g/dL 10/14/21 10/14/21 10/14/21 Range/Units 07:31 12:11 15:51 WBC (3.8-10.6) k/uL RBC (3.80-5.40) m/uL Hgb (11.4-16.0) gm/dL Hct (34.0-46.0) % Lymphocytes # (1.0-4.8) k/uL APTT (22.0-30.0) sec Sodium (137-145) mmol/L BUN (7-17) mg/dL Creatinine (0.52-1.04) mg/dL Glucose (74-99) mg/dL POC Glucose (mg/dL) 242 H (75-99) mg/dL Iron (50-170) ug/dL Troponin I 8.020 H* 4.620 H* (0.000-0.034) ng/mL Total Protein (6.3-8.2) g/dL 10/14/21 10/14/21 10/14/21 Range/Units 15:51 16:52 20:21 WBC (3.8-10.6) k/uL RBC (3.80-5.40) m/uL Hgb (11.4-16.0) gm/dL Hct (34.0-46.0) % Lymphocytes # (1.0-4.8) k/uL APTT (22.0-30.0) sec Sodium (137-145) mmol/L BUN (7-17) mg/dL Creatinine (0.52-1.04) mg/dL Glucose (74-99) mg/dL POC Glucose (mg/dL) 222 H 218 H (75-99) mg/dL Iron 43 L (50-170) ug/dL Troponin I (0.000-0.034) ng/mL Total Protein (6.3-8.2) g/dL 10/14/21 10/15/21 10/15/21 Range/Units 20:39 05:54 06:31 WBC (3.8-10.6) k/uL RBC (3.80-5.40) m/uL Hgb (11.4-16.0) gm/dL Hct (34.0-46.0) % Lymphocytes # (1.0-4.8) k/uL APTT 46.8 H (22.0-30.0) sec Sodium (137-145) mmol/L BUN (7-17) mg/dL Creatinine (0.52-1.04) mg/dL Glucose (74-99) mg/dL POC Glucose (mg/dL) 134 H (75-99) mg/dL Iron (50-170) ug/dL Troponin I 3.930 H* (0.000-0.034) ng/mL Total Protein (6.3-8.2) g/dL 10/15/21 10/15/21 Range/Units 06:31 06:31 WBC 3.7 L (3.8-10.6) k/uL RBC 2.95 L (3.80-5.40) m/uL Hgb 8.4 L (11.4-16.0) gm/dL Hct 25.5 L (34.0-46.0) % Lymphocytes # 0.6 L (1.0-4.8) k/uL APTT (22.0-30.0) sec Sodium 136 L (137-145) mmol/L BUN 46 H (7-17) mg/dL Creatinine 1.65 H (0.52-1.04) mg/dL Glucose 130 H (74-99) mg/dL POC Glucose (mg/dL) (75-99) mg/dL Iron (50-170) ug/dL Troponin I (0.000-0.034) ng/mL Total Protein 8.3 H (6.3-8.2) g/dL Microbiology - Last 24 Hours (Table) 10/14/21 07:49 Gram Stain - Preliminary Sputum Sputum Culture - Preliminary 10/13/21 09:48 Blood Culture Gram Stain - Preliminary Blood Blood Culture - Preliminary Coagulase Negative Staph 10/13/21 09:58 Blood Culture - Preliminary Blood No Growth after 24 hours 10/13/21 09:48 Blood Culture - Final Blood Assessment and Plan Assessment: Assessment #1 hypertension emergency #2 evidence of myocardial injury likely secondary to hypertension emergency. Severe/obstructive CAD to be ruled out #3 heart failure exacerbation secondary to heart failure with preserved ejection fraction #3 acute renal failure #4 bilateral expiratory wheezing could be related to cardiac asthma #5 history of TIA/CVA #64 multiple comorbid conditions Plan #1 continue IV heparin for additional 24 hours #2 continue antiplatelet as well as a statin #3 increase the dose of Norvasc #4 increase the dose of Lasix IV #5 continue monitoring the kidney function and electrolytes #6 follow-up with the patient
--- NOTE | 2021-10-15 08:35 | P.CONS ---
History of Present Illness - Reason for Consult Consult date: 10/14/21 bacteremia Requesting physician: Nenita Shelby - Chief Complaint shortness of breath x 1 day - History of Present Illness History of present illness : Patient is 75-year female with a past medical history significant for asthma in this patient presented to hospital on October 13, 2021 for evaluation of sudden onset of increasing shortness of breath and wheezing the patient says she woke up around 4:30 in the morning of presentation to hospital with hard time breathing and she was wheezing patient denies having any fever or any chills, the patient did have a cough which is mild to moderate intensity with yellow sputum no hemoptysis the patient has been vaccinated for COVID-19 on presentation to the hospital patient did have low- grade fever of 99.8 F no significant hypoxemia or need for supplemental oxygen did have a normal white count with no lymphopenia initially patient did have a elevated BUN and creatinine troponins are elevated liver enzymes are procalcitonin was 0.56 sputum cultures obtained which are currently pending patient did have blood culture drawn which was normal positive cocci that has prompted this infectious disease consultation patient did have a chest x-ray vague reticulonodular density throughout the right lung may reflect developing infiltrate repeat x-ray shows improved aeration of the left lung infectious was consulted for further management of antibiotic therapy because of her bacteremia Review of system: CONSTITUTIONAL: Positive for weakness along with low-grade fever. EYES: No complaint. ENT: No complaint. RESPIRATORY: As per history of present illness. CARDIOVASCULAR: No complaint. GENITOURINARY: No complaint. GASTROINTESTINAL: No complaint. MUSCULOSKELETAL: No complaint. INTEGUMENTARY: No complaint. PSYCHOLOGIC: No complaint. ENDOCRINE: No complaint. NEUROLOGIC: No complaint. Past medical history : Reviewed, documented below Past surgical history : Reviewed, documented below Social history: Reviewed, documented below Medications: Reviewed, as documented below EXAMINATION: Vital sigans= Reviewed and documented below GENERAL DESCRIPTION: Elderly female up in bed, no distress. No tachypnea or accessory muscle of respiration use. HEENT: Shows Pallor , no scleral icterus. Oral mucous membrane is dry. NECK: Trachea central, no thyromegaly. LUNGS: Unlabored breathing. Decrease intensity of breath sounds with occasional wheeze . HEART: S1, S2, regular rate and rhythm. ABDOMEN: Soft, no tenderness , guarding or rigidity EXTREMITIES: No edema of feet. SKIN: No rash, no masses palpable. NEUROLOGICAL: The patient is awake, alert, oriented x3, mood and affect normal. LABS AND RADIOLOGY: Reviewed results see below Assessment : 1-patient with a positive blood culture with gram-positive cocci which has been finalized and staph epi more likely representing skin contamination as patient has no clinical disease to go along with it 2-patient with shortness of breath cough and yellow sputum which is likely multifactorial in this patient did have a component of pneumonia likely com munity-acquired Plan: 1-no need for vancomycin and blood culture has been repeated 2-Rocephin and Zithromax to continue We will follow on clinical condition and cultures to further adjust medication if needed Thank you for this consultation we will follow the patient along with you Past Medical History Past Medical History: Asthma, CVA/TIA, Diabetes Mellitus, Hyperlipidemia, Hypertension, Rheumatoid Arthritis (RA) Additional Past Medical History / Comment(s): TIA in 2016 History of Any Multi-Drug Resistant Organisms: None Reported Past Surgical History: Appendectomy, Tubal Ligation Additional Past Surgical History / Comment(s): Colonoscopy, cataracts surg Past Anesthesia/Blood Transfusion Reactions: No Reported Reaction Past Psychological History: No Psychological Hx Reported Smoking Status: Never smoker Past Alcohol Use History: None Reported Past Drug Use History: None Reported - Past Family History Father Family Medical History: Cancer, Congestive Heart Failure (CHF) Additional Family Medical History / Comment(s): colon cancer Mother Family Medical History: Rheumatoid Arthritis (RA) Medications and Allergies Home Medications Medication Instructions Recorded Confirmed Type Clopidogrel [Plavix] 75 mg PO DAILY 05/14/19 10/13/21 History Metoprolol Succinate (ER) [Toprol 25 mg PO DAILY 05/14/19 10/13/21 History XL] lisinopriL 40 mg PO DAILY 05/14/19 10/13/21 History Montelukast [Singulair] 10 mg PO HS #30 tab 05/24/19 10/13/21 Rx Albuterol Inhaler [Ventolin Hfa 1 - 2 puff INHALATION RT-QID PRN 06/14/20 10/13/21 History Inhaler] Tolterodine ER [Detrol LA] 4 mg PO DAILY 06/14/20 10/13/21 History Ferrous Sulfate [Iron (65 MG 325 mg PO DAILY 02/16/21 10/13/21 History Elemental)] Acetaminophen Tab [Tylenol Tab] 1,000 mg PO Q6HR PRN 10/13/21 10/13/21 History Cholecalciferol [Vitamin D3 (25 50 mcg PO DAILY 10/13/21 10/13/21 History Mcg = 1000 Iu)] Ezetimibe [Zetia] 10 mg PO DAILY 10/13/21 10/13/21 History Levothyroxine Sodium [Synthroid] 25 mcg PO DAILY 10/13/21 10/13/21 History glipiZIDE [Glucotrol] 5 mg PO TID 10/13/21 10/13/21 History guaiFENesin [Diabetic Tussin] 200 mg PO Q6H PRN 10/13/21 10/13/21 History predniSONE 5 mg PO DAILY 10/13/21 10/13/21 History prednisoLONE ACETATE 1% OPHTH 1 drops BOTH EYES QID 10/13/21 10/13/21 History [Pred Forte 1%] Allergies Allergy/AdvReac Type Severity Reaction Status Date / Time atorvastatin [From Lipitor] AdvReac CRAMPS Verified 10/13/21 10:53 latex AdvReac Itching Verified 10/13/21 10:53 Physical Exam Vitals: Vital Signs Temp Pulse Pulse Resp BP Pulse Ox 10/14/21 14:00 18 10/14/21 12:32 98.0 F 90 18 164/79 95 10/14/21 11:27 76 10/14/21 11:17 72 10/14/21 08:36 97.8 F 86 18 182/74 94 L 10/14/21 08:03 18 10/14/21 07:49 72 10/14/21 07:37 72 10/14/21 04:00 98.0 F 71 18 168/82 95 10/14/21 02:00 76 18 10/14/21 00:00 98.3 F 76 18 174/76 95 10/13/21 20:48 86 10/13/21 20:33 83 10/13/21 20:00 88 18 10/13/21 19:45 98.1 F 88 18 134/77 97 Intake and Output 10/14/21 10/14/21 10/14/21 06:59 14:59 22:59 Intake Total 78.008 Balance 78.008 Intake: Intake, IV Titration 78.008 Amount Heparin Sod,Pork in 0.45% 78.008 NaCl 25,000 unit In 0.45 % NaCl 1 250ml.bag @ 8. 383 UNITS/KG/HR 10.001 mls/hr IV .Q24H [facility] Rx#: [id number] Other: Voiding Method Bedside Commode Bedside Commode Diaper Diaper # Voids 1 1 Weight 120 kg Results CBC & Chem 7: 10/15/21 06:31 10/15/21 06:31 Labs: Abnormal Lab Results - Last 24 Hours (Table) 10/13/21 10/13/21 10/13/21 Range/Units 16:39 16:39 17:50 WBC (3.8-10.6) k/uL RBC 2.83 L (3.80-5.40) m/uL Hgb 8.1 L (11.4-16.0) gm/dL Hct 25.0 L (34.0-46.0) % Lymphocytes # 0.2 L (1.0-4.8) k/uL APTT 20.3 L (22.0-30.0) sec Sodium (137-145) mmol/L BUN (7-17) mg/dL Creatinine (0.52-1.04) mg/dL Glucose (74-99) mg/dL POC Glucose (mg/dL) (75-99) mg/dL Troponin I 5.770 H* (0.000-0.034) ng/mL Procalcitonin (0.02-0.09) ng/mL 10/13/21 10/13/21 10/14/21 Range/Units 17:50 19:52 05:44 WBC (3.8-10.6) k/uL RBC (3.80-5.40) m/uL Hgb (11.4-16.0) gm/dL Hct (34.0-46.0) % Lymphocytes # (1.0-4.8) k/uL APTT (22.0-30.0) sec Sodium (137-145) mmol/L BUN (7-17) mg/dL Creatinine (0.52-1.04) mg/dL Glucose (74-99) mg/dL POC Glucose (mg/dL) 435 H 186 H (75-99) mg/dL Troponin I (0.000-0.034) ng/mL Procalcitonin 0.56 H (0.02-0.09) ng/mL 10/14/21 10/14/21 10/14/21 Range/Units 07:31 07:31 07:31 WBC 3.2 L (3.8-10.6) k/uL RBC 2.74 L (3.80-5.40) m/uL Hgb 7.7 L (11.4-16.0) gm/dL Hct 23.3 L (34.0-46.0) % Lymphocytes # 0.5 L (1.0-4.8) k/uL APTT 52.0 H (22.0-30.0) sec Sodium 136 L (137-145) mmol/L BUN 40 H (7-17) mg/dL Creatinine 1.68 H (0.52-1.04) mg/dL Glucose 155 H (74-99) mg/dL POC Glucose (mg/dL) (75-99) mg/dL Troponin I (0.000-0.034) ng/mL Procalcitonin (0.02-0.09) ng/mL 10/14/21 10/14/21 10/14/21 Range/Units 07:31 12:11 15:51 WBC (3.8-10.6) k/uL RBC (3.80-5.40) m/uL Hgb (11.4-16.0) gm/dL Hct (34.0-46.0) % Lymphocytes # (1.0-4.8) k/uL APTT (22.0-30.0) sec Sodium (137-145) mmol/L BUN (7-17) mg/dL Creatinine (0.52-1.04) mg/dL Glucose (74-99) mg/dL POC Glucose (mg/dL) 242 H (75-99) mg/dL Troponin I 8.020 H* 4.620 H* (0.000-0.034) ng/mL Procalcitonin (0.02-0.09) ng/mL 10/14/21 Range/Units 16:52 WBC (3.8-10.6) k/uL RBC (3.80-5.40) m/uL Hgb (11.4-16.0) gm/dL Hct (34.0-46.0) % Lymphocytes # (1.0-4.8) k/uL APTT (22.0-30.0) sec Sodium (137-145) mmol/L BUN (7-17) mg/dL Creatinine (0.52-1.04) mg/dL Glucose (74-99) mg/dL POC Glucose (mg/dL) 222 H (75-99) mg/dL Troponin I (0.000-0.034) ng/mL Procalcitonin (0.02-0.09) ng/mL Microbiology - Last 24 Hours (Table) 10/13/21 09:48 Blood Culture Gram Stain - Preliminary Blood Blood Culture - Preliminary Coagulase Negative Staph 10/14/21 07:49 Sputum Culture - Preliminary Sputum 10/13/21 09:58 Blood Culture - Preliminary Blood No Growth after 24 hours 10/13/21 09:48 Blood Culture - Final Blood
[2021-10-15] MEDS: IPRATROPIUM-ALBUTEROL 3 ML NEB INHALATION PRN ×4 (08:47→21:16)
[2021-10-15] MEDS ORDERED: amLODIPine 5 MG TAB PO ONE (09:00)
[2021-10-15] MEDS ORDERED: amLODIPine 5 MG TAB PO SCH (09:00)
[2021-10-15] MEDS ORDERED: VANCOMYCIN 1,750 MG in SODIUM CHLORIDE 0.9% 500 ML 500 ML IVPB ONE (09:00)
[2021-10-15] MEDS: glipiZIDE 5 MG TAB PO SCH ×3 (09:47→20:22)
[2021-10-15] MEDS: FUROSEMIDE 10 MG/ML 4 ML VIAL IV SCH ×2 (09:47→20:22)
[2021-10-15] MEDS: lisinopriL 20 MG TAB PO SCH (09:48)
[2021-10-15] MEDS: CLOPIDOGREL 75 MG TAB PO SCH (09:48)
[2021-10-15] MEDS: hydrALAZINE HCL 50 MG TAB PO SCH ×3 (09:48→20:22)
[2021-10-15] MEDS: AZITHROMYCIN 500 MG TAB PO SCH (09:48)
[2021-10-15] MEDS: prednisoLONE ACETATE 1% OPHTH DROPS 5 ML BTL BOTH EYES SCH ×4 (09:49→20:24)
[2021-10-15] MEDS: EZETIMIBE 10 MG TAB PO SCH (09:49)
[2021-10-15] MEDS: OXYBUTYNIN 10 MG TAB.ER.24 PO SCH (09:49)
[2021-10-15 10:27] LABS: Folate, Serum 5.3 ng/mL (4.40-31.00)
[2021-10-15] MEDS: HEPARIN SOD,PORK IN 0.45% NACL 25,000 UNIT in 0.45% NACL 1 250ML.BAG IV SCH (11:13)
[2021-10-15 11:42] LABS: Glucose,Whole Blood 170 mg/dL (75-99)
[2021-10-15 16:48] LABS: Glucose,Whole Blood 230 mg/dL (75-99)
--- NOTE | 2021-10-15 17:31 | P.PN ---
Subjective Progress Note Date: 10/15/21 Patient is a 75-year-old female with a known history of asthma, history of CVA/TIA with no residual weakness, diabetes type 2, hypertension, hyperlipidemia, rheumatoid arthritis on prednisone daily presents to ER with complaints of shortness of breath started around 4 AM this morning. Patient felt like chest congestion and denied any chest pain. Patient states that she is having mild cough and congestion for the past couple of days. Denied any worsening leg swelling than usual. Patient was having worsening symptoms and called EMS. Denied any fever or chills. No nausea vomiting or abdominal pain or diarrhea. No headache or dizziness or diaphoresis. He states that she is fully vaccinated for code 19 infection. Denied any loss of taste or smell sensation. Laboratory data on admission showed WBC 7.3 hemoglobin 8.6 and platelets 204 BUN 29 and creatinine 1.36 Magnesium 1.3 troponin 0.057 and 4.360 ProBNP 2540 and covid-19 PCR not detected. Chest x-ray showed a vague reticular nodular density throughout the right lung may reflect developing infiltrate. Correlate clinically. This is Dr. Shelby dictating I am assuming care of this patient is still [facility] were covering for me up to this point On 10/14/2021 patient was seen and examined on the telemetry floor she is alert and oriented 3 in no apparent distress there is no fever or chills no headache or dizziness no chest pain no shortness of breath she has occasional cough with minimal sputum production there is no nausea or vomiting no abdominal pain no diarrhea no blood in the stools no burning with urination no frequency or urgency and no hematuria. Patient had blood culture initially reported this morning as positive for gram-positive cocci, she was started on IV vancomycin, infectious disease consultation was requested, however subsequently, culture was reported as coag-negative gram-positive cocci possible contamination, IV vancomycin was discontinued. On 10/15/2021 patient was seen and examined on the telemetry floor she is alert and oriented 3 in no apparent distress she is complaining of cough and occasional wheezing otherwise she denies any complaints there is no fever or chills no headache or dizziness no chest pain no shortness of breath, there is no nausea or vomiting no abdominal pain no diarrhea no blood in the stools no burning with urination no frequency or urgency and no hematuria. At this time will continue with IV antibiotics and recheck chest x-ray in a.m. Objective - Vital Signs Vital signs: Vital Signs Temp 97.4 F L 10/15/21 15:19 Pulse 90 10/15/21 16:24 Resp 18 10/15/21 16:24 BP 161/65 10/15/21 15:19 Pulse Ox 100 10/15/21 15:19 Intake & Output 10/14/21 10/15/21 10/15/21 18:59 06:59 18:59 Intake Total 411.992 892.838 Output Total 800 Balance 411.992 92.838 Weight 123 kg Intake: Intake, IV Titration 171.992 292.838 Amount Heparin Sod,Pork in 0.45% 171.992 242.838 NaCl 25,000 unit In 0.45 % NaCl 1 250ml.bag @ 8. 383 UNITS/KG/HR 10.001 mls/hr IV .Q24H [facility] Rx#: [id number] cefTRIAXone 2 gm In 50 Sodium Chloride 0.9% 50 ml @ 100 mls/hr IVPB Q24HR [facility] Rx#:[id number] Oral 240 600 Output: Urine 800 Other: Voiding Method Bedside Commode Bedside Commode Bedside Commode Diaper Diaper Diaper # Voids 2 1 # Bowel Movements 0 - Exam In general patient is alert and oriented x 3 in no distress HEENT head normocephalic and atraumatic Neck is supple no JVD no goiter no lymphadenopathy no carotid bruit Chest examination reveals scattered crackles bilaterally with wheezing Cardiac exam reveals regular heart sounds S1 and S2 no gallops no murmurs Abdomen is soft nontender no organomegaly with normal bowel sounds Extremity exam reveals no edema no cyanosis or clubbing Neurological examination reveals no gross focal deficits - Labs CBC & Chem 7: 10/15/21 06:31 10/15/21 06:31 Labs: Abnormal Lab Results - Last 24 Hours (Table) 10/14/21 10/14/21 10/14/21 Range/Units 15:51 20:21 20:39 WBC (3.8-10.6) k/uL RBC (3.80-5.40) m/uL Hgb (11.4-16.0) gm/dL Hct (34.0-46.0) % Lymphocytes # (1.0-4.8) k/uL APTT (22.0-30.0) sec Sodium (137-145) mmol/L BUN (7-17) mg/dL Creatinine (0.52-1.04) mg/dL Glucose (74-99) mg/dL POC Glucose (mg/dL) 218 H (75-99) mg/dL Iron 43 L (50-170) ug/dL Troponin I 3.930 H* (0.000-0.034) ng/mL Total Protein (6.3-8.2) g/dL 10/15/21 10/15/21 10/15/21 Range/Units 05:54 06:31 06:31 WBC 3.7 L (3.8-10.6) k/uL RBC 2.95 L (3.80-5.40) m/uL Hgb 8.4 L (11.4-16.0) gm/dL Hct 25.5 L (34.0-46.0) % Lymphocytes # 0.6 L (1.0-4.8) k/uL APTT 46.8 H (22.0-30.0) sec Sodium (137-145) mmol/L BUN (7-17) mg/dL Creatinine (0.52-1.04) mg/dL Glucose (74-99) mg/dL POC Glucose (mg/dL) 134 H (75-99) mg/dL Iron (50-170) ug/dL Troponin I (0.000-0.034) ng/mL Total Protein (6.3-8.2) g/dL 10/15/21 10/15/21 10/15/21 Range/Units 06:31 11:38 16:38 WBC (3.8-10.6) k/uL RBC (3.80-5.40) m/uL Hgb (11.4-16.0) gm/dL Hct (34.0-46.0) % Lymphocytes # (1.0-4.8) k/uL APTT (22.0-30.0) sec Sodium 136 L (137-145) mmol/L BUN 46 H (7-17) mg/dL Creatinine 1.65 H (0.52-1.04) mg/dL Glucose 130 H (74-99) mg/dL POC Glucose (mg/dL) 170 H 230 H (75-99) mg/dL Iron (50-170) ug/dL Troponin I (0.000-0.034) ng/mL Total Protein 8.3 H (6.3-8.2) g/dL Microbiology - Last 24 Hours (Table) 10/13/21 09:48 Blood Culture Gram Stain - Final Blood Blood Culture - Final Coagulase Negative Staph Coagulase Negative Staph#2 10/13/21 09:58 Blood Culture - Preliminary Blood No Growth after 48 hours 10/14/21 07:49 Gram Stain - Preliminary Sputum Sputum Culture - Preliminary Assessment and Plan Plan: 1. Acute non-ST elevated NV elevated troponin level. Patient started on IV heparin cardiology consultation requested 2. Acute CHF exacerbation, with elevated BNP, echocardiogram ordered 3. Acute asthma exacerbation, patient has known history of asthma, she had severe wheezing on presentation which is improving 4. Right lower lobe pneumonia, maintained on IV Rocephin and IV Zithromax, sputum culture ordered. 5. Acute kidney injury likely prerenal with creatinine level I.36 on admission. 6. hypomagnesemia 1.3 on admission , replaced. 7. Underlying history of Hypertension 8. Hyperlipidemia 9. Rheumatoid arthritis on prednisone 5 mg daily 10. Normocytic anemia/anemia of chronic disease 11. 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 12. Morbid obesity BMI 40.2 DVT prophylaxis patient is already on heparin drip Patient will be continued on telemetry monitoring. Serial troponin level. Patient will be started on heparin drip due to non-ST elevated NV. Patient will be continued on Plavix and Toprol and statins. Continue with antibiotics in the form of ceftriaxone and azithromycin and fol low-up pro-calcitonin level and repeat chest x-ray tomorrow. Continue with IV Solu-Medrol and duo nebs and monitor breathing status closely and supplement oxygen as needed. Continue with home medications and follow closely. Cardiology was consulted and 2-D echocardiogram will be ordered.
[2021-10-15 20:15] LABS: Glucose,Whole Blood 284 mg/dL (75-99)
[2021-10-15] MEDS: MONTELUKAST 10 MG TAB PO SCH (20:22)
[2021-10-15] MEDS: DOCUSATE 100 MG CAP PO SCH (20:22)
--- NOTE | 2021-10-15 22:32 | PN ---
PROGRESS NOTE DATE OF SERVICE: 10/15/2021 REASON FOR FOLLOWUP: 1. Positive blood culture; contamination. 2. Pneumonia. INTERVAL HISTORY: The patient is afebrile. The patient is breathing slightly comfortably. The patient continues to have a cough; not bringing up any sputum, though. No chest pain. No nausea, vomiting. No abdominal pain or diarrhea. PHYSICAL EXAMINATION: Blood pressure blood pressure 168/80 with a pulse of 74, temperature 98.2. She is 94% on room air. General description is an elderly female up in the chair in no distress. Respiratory system: Unlabored breathing. Occasional wheeze. Heart S1, S2. Regular rate and rhythm. Abdomen soft, no tenderness. LABS: Hemoglobin 8.4, white count 3.7, creatinine 1.65. DIAGNOSTIC IMPRESSION AND PLAN: Patient with a positive blood culture, coagulase-negative Staphylococcus, likely contaminant. Repeat culture negative. No need for vancomycin patient admitted to hospital with asthma exacerbation, possible pneumonia. Sputum culture pending. Continue with Rocephin and Zithromax. Adjust antibiotic further on the basis of the culture report. MMODL / IJN: [id number] /
[2021-10-16] MEDS: ACETAMINOPHEN TAB 500 MG TAB PO PRN ×2 (05:06→17:21)
[2021-10-16] MEDS: LEVOTHYROXINE 25 MCG TAB PO SCH (05:06)
[2021-10-16] MEDS: methylPREDNISolone SOD SUCCI 125 MG/2 ML VIAL IV SCH ×3 (05:09→17:23)
[2021-10-16 06:05] LABS: Glucose,Whole Blood 162 mg/dL (75-99)
[2021-10-16] MEDS: INSULIN ASPART (NovoLOG) 100 UNIT/ML VIAL SQ SCH ×4 (06:08→21:56)
[2021-10-16] MEDS: IPRATROPIUM-ALBUTEROL 3 ML NEB INHALATION PRN ×3 (07:46→19:11)
[2021-10-16 08:43] LABS: Basophils % (A) 1 %; Eosinophils % (A) 0 %; HCT 24.9 % (34.0-46.0); HGB 8.1 gm/dL (11.4-16.0); Lymphocytes # (A) 0.5 k/uL (1.0-4.8); Lymphocytes % (A) 14 %; MCH 28.3 pg (25.0-35.0); MCHC 32.3 g/dL (31.0-37.0); MCV 87.6 fL (80.0-100.0); Mean Platelet Volume 8.9; Monocytes # (A) 0.3 k/uL (0-1.0); Monocytes % (A) 7 %; Neutrophils # (A) 2.8 k/uL (1.3-7.7); Neutrophils % (A) 75 %; Platelet Count 170 k/uL (150-450); RBC 2.85 m/uL (3.80-5.40); RDW 14.6 % (11.5-15.5); WBC 3.8 k/uL (3.8-10.6)
[2021-10-16 09:00] LABS: Albumin 3.2 g/dL (3.5-5.0); Calcium 8.5 mg/dL (8.4-10.2); Potassium 3.9 mmol/L (3.5-5.1); Total Bilirubin 0.3 mg/dL (0.2-1.3); Total Protein 7.2 g/dL (6.3-8.2)
[2021-10-16 09:08] LABS: Vancomycin,Random 7.4 ug/mL
[2021-10-16] MEDS: hydrALAZINE HCL 50 MG TAB PO SCH ×4 (09:21→23:05)
[2021-10-16] MEDS: CLOPIDOGREL 75 MG TAB PO SCH (09:21)
[2021-10-16] MEDS: EZETIMIBE 10 MG TAB PO SCH (09:21)
[2021-10-16] MEDS: FUROSEMIDE 10 MG/ML 4 ML VIAL IV SCH ×3 (09:21→23:05)
[2021-10-16] MEDS: glipiZIDE 5 MG TAB PO SCH ×2 (09:21→17:23)
[2021-10-16] MEDS: amLODIPine 10 MG TAB PO SCH (09:21)
[2021-10-16] MEDS: OXYBUTYNIN 10 MG TAB.ER.24 PO SCH (09:21)
[2021-10-16] MEDS: DOCUSATE 100 MG CAP PO SCH ×2 (09:21→21:56)
[2021-10-16] MEDS: lisinopriL 20 MG TAB PO SCH (09:22)
[2021-10-16] MEDS: prednisoLONE ACETATE 1% OPHTH DROPS 5 ML BTL BOTH EYES SCH ×4 (09:22→22:32)
--- NOTE | 2021-10-16 11:22 | P.PN ---
Subjective Progress Note Date: 10/16/21 HISTORY OF PRESENT ILLNESS: The patient is a pleasant 75-year-old female patient with a past medical history significant for asthma and hypertension and dyslipidemia who was admitted to the hospital with hypertension emergency complicated by acute non-ST deviation myoca rdial infarction as well as heart failure. The patient was seen this morning. Yesterday she was experiencing bilateral expiratory wheezing which we thought it could be related to cardiac asthma. Be ta prisca was stopped. She was started on Lasix IV. She was seen this morning that she stated that the shortness of breath has improved and no symptoms of chest pain or chest discomfort. On examination she stated have bilateral expiratory wheezing but that has improved. I'm going to increase the dose of Lasix to 40 mg IV twice a day with continue monitoring the kidney function as well as electrolytes. Beside that I would increase the dose of Norvasc to 10 mg by mouth daily 2 better control the blood pressure. She is on antiplatelet as well as high intensity statin would continue that. The echo was reviewed and showed normal left ventricular systolic function without any evidence of foreign motion abnormalities. 10-16-21 Patient examined this morning at the bedside. Patient denies chest pain or pressure. She reports mild SOB this morning and wheezing. She remains on IV l asix and IV heparin. Echo reveals EF 55-60%. Creatinine today 1.47. PHYSICAL EXAM: VITAL SIGNS: Reviewed. GENERAL: Well-developed in no acute distress. HEENT: Head is normocephalic. Pupils are equal, round. Sclerae anicteric. Mucous membranes of the mouth are moist. Neck supple. No JVD or thyromegaly LUNGS: Respirations even and unlabored. Lungs diminished with expiratory w heezing. HEART: Regular rate and rhythm. S1 and S2 heard. EXTREMITIES: Normal range of motion. No clubbing or cyanosis. Peripheral pulses intact. Trace bilateral lower extremity edema ASSESSMENT: Hypertensive emergency Evidence of myocardial injury secondary to hypertensive emergency, can not rule out underlying CAD, concerning for type I GA/NSTEMI Acute on chronic diastolic congestive heart failure Acute renal failure History of TIA Hypertension Hyperlipidemia PLAN: Continue current cardiac medications Continue IV lasix Continue IV heparin Patient will require cardiac cath in the future. If creatinine remains stable, will plan for heart cath or Thursday Further recommendations pending patient course Nurse practitioner note has been reviewed by physician. Signing provider agrees with the documented findings, assessment, and plan of care. Objective - Vital Signs Vital signs: Vital Signs Temp 97 F L 10/16/21 08:00 Pulse 86 10/16/21 08:00 Resp 18 10/16/21 08:00 BP 177/70 10/16/21 08:00 Pulse Ox 96 10/16/21 08:00 Intake & Output 10/15/21 10/16/21 10/16/21 18:59 06:59 18:59 Intake Total 1252.838 120 Output Total 800 1550 450 Balance 452.838 -1550 -330 Weight 123.6 kg Intake: Intake, IV Titration 292.838 Amount Heparin Sod,Pork in 0.45% 242.838 NaCl 25,000 unit In 0.45 % NaCl 1 250ml.bag @ 8. 383 UNITS/KG/HR 10.001 mls/hr IV .Q24H [facility] Rx#: [id number] cefTRIAXone 2 gm In 50 Sodium Chloride 0.9% 50 ml @ 100 mls/hr IVPB Q24HR [facility] Rx#:[id number] Oral 960 120 Output: Urine 800 1550 450 Other: Voiding Method Bedside Commode Bedside Commode Bedside Commode Diaper Diaper Diaper # Voids 1 # Bowel Movements 1 - Labs CBC & Chem 7: 10/16/21 06:43 10/16/21 06:43 Labs: Abnormal Lab Results - Last 24 Hours (Table) 10/15/21 10/15/21 10/15/21 Range/Units 11:38 16:38 20:14 RBC (3.80-5.40) m/uL Hgb (11.4-16.0) gm/dL Hct (34.0-46.0) % Lymphocytes # (1.0-4.8) k/uL APTT (22.0-30.0) sec Carbon Dioxide (22-30) mmol/L BUN (7-17) mg/dL Creatinine (0.52-1.04) mg/dL Glucose (74-99) mg/dL POC Glucose (mg/dL) 170 H 230 H 284 H (75-99) mg/dL Albumin (3.5-5.0) g/dL 10/16/21 10/16/21 10/16/21 Range/Units 06:03 06:43 06:43 RBC (3.80-5.40) m/uL Hgb (11.4-16.0) gm/dL Hct (34.0-46.0) % Lymphocytes # (1.0-4.8) k/uL APTT 43.5 H (22.0-30.0) sec Carbon Dioxide 21 L (22-30) mmol/L BUN 53 H (7-17) mg/dL Creatinine 1.47 H (0.52-1.04) mg/dL Glucose 132 H (74-99) mg/dL POC Glucose (mg/dL) 162 H (75-99) mg/dL Albumin 3.2 L (3.5-5.0) g/dL 10/16/21 Range/Units 06:43 RBC 2.85 L (3.80-5.40) m/uL Hgb 8.1 L (11.4-16.0) gm/dL Hct 24.9 L (34.0-46.0) % Lymphocytes # 0.5 L (1.0-4.8) k/uL APTT (22.0-30.0) sec Carbon Dioxide (22-30) mmol/L BUN (7-17) mg/dL Creatinine (0.52-1.04) mg/dL Glucose (74-99) mg/dL POC Glucose (mg/dL) (75-99) mg/dL Albumin (3.5-5.0) g/dL Microbiology - Last 24 Hours (Table) 10/14/21 07:49 Gram Stain - Final Sputum Sputum Culture - Final 10/13/21 09:48 Blood Culture Gram Stain - Final Blood Blood Culture - Final Coagulase Negative Staph Coagulase Negative Staph#2 10/13/21 09:58 Blood Culture - Preliminary Blood No Growth after 48 hours
[2021-10-16 11:58] LABS: Glucose,Whole Blood 181 mg/dL (75-99)
--- NOTE | 2021-10-16 12:21 | P.PN ---
Subjective Progress Note Date: 10/16/21 Patient is a 75-year-old female with a known history of asthma, history of CVA/TIA with no residual weakness, diabetes type 2, hypertension, hyperlipidemia, rheumatoid arthritis on prednisone daily presents to ER with complaints of shortness of breath started around 4 AM this morning. Patient felt like chest congestion and denied any chest pain. Patient states that she is having mild cough and congestion for the past couple of days. Denied any worsening leg swelling than usual. Patient was having worsening symptoms and called EMS. Denied any fever or chills. No nausea vomiting or abdominal pain or diarrhea. No headache or dizziness or diaphoresis. He states that she is fully vaccinated for code 19 infection. Denied any loss of taste or smell sensation. Laboratory data on admission showed WBC 7.3 hemoglobin 8.6 and platelets 204 BUN 29 and creatinine 1.36 Magnesium 1.3 troponin 0.057 and 4.360 ProBNP 2540 and covid-19 PCR not detected. Chest x-ray showed a vague reticular nodular density throughout the right lung may reflect developing infiltrate. Correlate clinically. This is Dr. Shelby dictating I am assuming care of this patient is still [facility] were covering for me up to this point On 10/14/2021 patient was seen and examined on the telemetry floor she is alert and oriented 3 in no apparent distress there is no fever or chills no headache or dizziness no chest pain no shortness of breath she has occasional cough with minimal sputum production there is no nausea or vomiting no abdominal pain no diarrhea no blood in the stools no burning with urination no frequency or urgency and no hematuria. Patient had blood culture initially reported this morning as positive for gram-positive cocci, she was started on IV vancomycin, infectious disease consultation was requested, however subsequently, culture was reported as coag-negative gram-positive cocci possible contamination, IV vancomycin was discontinued. On 10/15/2021 patient was seen and examined on the telemetry floor she is alert and oriented 3 in no apparent distress she is complaining of cough and occasional wheezing otherwise she denies any complaints there is no fever or chills no headache or dizziness no chest pain no shortness of breath, there is no nausea or vomiting no abdominal pain no diarrhea no blood in the stools no burning with urination no frequency or urgency and no hematuria. At this time will continue with IV antibiotics and recheck chest x-ray in a.m. On 10/16/2021 patient alert and oriented 3. Patient currently maintained on IV antibiotics, IV steroids, IV Lasix and heparin drip. Patient reports some improvement. Patient stopping significant wheezing. Chest x-ray ordered. Patient denies chest pain. Patient denies nausea vomiting or diarrhea. Patient denies any urinary burning or frequency Objective - Vital Signs Vital signs: Vital Signs Temp 97 F L 10/16/21 08:00 Pulse 86 10/16/21 08:00 Resp 18 10/16/21 08:00 BP 177/70 10/16/21 08:00 Pulse Ox 96 10/16/21 08:00 Intake & Output 10/15/21 10/16/21 10/16/21 18:59 06:59 18:59 Intake Total 1252.838 120 Output Total 800 1550 450 Balance 452.838 -1550 -330 Weight 123.6 kg Intake: Intake, IV Titration 292.838 Amount Heparin Sod,Pork in 0.45% 242.838 NaCl 25,000 unit In 0.45 % NaCl 1 250ml.bag @ 8. 383 UNITS/KG/HR 10.001 mls/hr IV .Q24H [facility] Rx#: [id number] cefTRIAXone 2 gm In 50 Sodium Chloride 0.9% 50 ml @ 100 mls/hr IVPB Q24HR [facility] Rx#:[id number] Oral 960 120 Output: Urine 800 1550 450 Other: Voiding Method Bedside Commode Bedside Commode Bedside Commode Diaper Diaper Diaper # Voids 1 # Bowel Movements 1 - Exam In general patient is alert and oriented x 3 in no distress HEENT head normocephalic and atraumatic Neck is supple no JVD no goiter no lymphadenopathy no carotid bruit Chest examination reveals scattered crackles bilaterally with wheezing Cardiac exam reveals regular heart sounds S1 and S2 no gallops no murmurs Abdomen is soft nontender no organomegaly with normal bowel sounds Extremity exam reveals no edema no cyanosis or clubbing Neurological examination reveals no gross focal deficits - Labs CBC & Chem 7: 10/16/21 06:43 10/16/21 06:43 Labs: Abnormal Lab Results - Last 24 Hours (Table) 10/15/21 10/15/21 10/16/21 Range/Units 16:38 20:14 06:03 RBC (3.80-5.40) m/uL Hgb (11.4-16.0) gm/dL Hct (34.0-46.0) % Lymphocytes # (1.0-4.8) k/uL APTT (22.0-30.0) sec Carbon Dioxide (22-30) mmol/L BUN (7-17) mg/dL Creatinine (0.52-1.04) mg/dL Glucose (74-99) mg/dL POC Glucose (mg/dL) 230 H 284 H 162 H (75-99) mg/dL Albumin (3.5-5.0) g/dL 10/16/21 10/16/21 10/16/21 Range/Units 06:43 06:43 06:43 RBC 2.85 L (3.80-5.40) m/uL Hgb 8.1 L (11.4-16.0) gm/dL Hct 24.9 L (34.0-46.0) % Lymphocytes # 0.5 L (1.0-4.8) k/uL APTT 43.5 H (22.0-30.0) sec Carbon Dioxide 21 L (22-30) mmol/L BUN 53 H (7-17) mg/dL Creatinine 1.47 H (0.52-1.04) mg/dL Glucose 132 H (74-99) mg/dL POC Glucose (mg/dL) (75-99) mg/dL Albumin 3.2 L (3.5-5.0) g/dL 10/16/21 Range/Units 11:56 RBC (3.80-5.40) m/uL Hgb (11.4-16.0) gm/dL Hct (34.0-46.0) % Lymphocytes # (1.0-4.8) k/uL APTT (22.0-30.0) sec Carbon Dioxide (22-30) mmol/L BUN (7-17) mg/dL Creatinine (0.52-1.04) mg/dL Glucose (74-99) mg/dL POC Glucose (mg/dL) 181 H (75-99) mg/dL Albumin (3.5-5.0) g/dL Microbiology - Last 24 Hours (Table) 10/13/21 09:58 Blood Culture - Preliminary Blood No Growth after 72 hours 10/14/21 07:49 Gram Stain - Final Sputum Sputum Culture - Final 10/13/21 09:48 Blood Culture Gram Stain - Final Blood Blood Culture - Final Coagulase Negative Staph Coagulase Negative Staph#2 Assessment and Plan Plan: 1. Acute non-ST elevated [place] elevated troponin level. Patient started on IV heparin cardiology consultation requested 2. Acute CHF exacerbation, with elevated BNP, 2-D echo completed showing an EF of 55-60%. Patient maintained on IV Lasix 3. Acute asthma exacerbation, patient has known history of asthma, she had kurt re wheezing on presentation which is improving 4. Right lower lobe pneumonia, maintained on IV Rocephin and IV Zithromax, sputum culture ordered. 5. Acute kidney injury likely prerenal with creatinine level I.36 on admission. 6. hypomagnesemia 1.3 on admission , replaced. 7. Underlying history of Hypertension 8. Hyperlipidemia 9. Rheumatoid arthritis on prednisone 5 mg daily 10. Normocytic anemia/anemia of chronic disease 11. 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 12. Morbid obesity BMI 40.2 13. Positive blood culture. Infectious disease services are following likely contamination DVT prophylaxis patient is already on heparin drip Patient will be continued on telemetry monitoring. Serial troponin level. Patient will be started on heparin drip due to non-ST elevated TX. Patient will be continued on Plavix and Toprol and statins. Patient remains on IV heparin Continue IV steroids Patient maintained on IV Lasix Continue IV antibiotics Cardiology, infectious disease and pulmonary service is consulted Repeat chest x-ray ordered for a.m.
--- NOTE | 2021-10-16 13:01 | XR ---
EXAMINATION TYPE: XR chest 1V portable DATE OF EXAM: 10/16/2021 COMPARISON: 10/14/2021 INDICATION: Follow-up pneumonia, cough TECHNIQUE: Single frontal view of the chest is obtained. FINDINGS: The heart size is upper limits for size.. The pulmonary vasculature is normal. No suspicious consolidations are evident. IMPRESSION: 1. No acute pulmonary process. 2. Follow-up can be performed as clinically indicated
[2021-10-16] MEDS ORDERED: NITROGLYCERIN SL TABS 0.4 MG TAB SUBLINGUAL PRN (14:38)
[2021-10-16] MEDS ORDERED: ALPRAZolam 0.25 MG TAB PO PRN (14:38)
[2021-10-16] MEDS ORDERED: ALPRAZolam 0.5 MG TAB PO PRN (14:38)
[2021-10-16 16:22] LABS: Glucose,Whole Blood 115 mg/dL (75-99)
[2021-10-16 20:08] LABS: Glucose,Whole Blood 214 mg/dL (75-99)
[2021-10-16] MEDS: MONTELUKAST 10 MG TAB PO SCH (21:56)
[2021-10-16] MEDS: HEPARIN SOD,PORK IN 0.45% NACL 25,000 UNIT in 0.45% NACL 1 250ML.BAG IV SCH (21:58)
[2021-10-16] MEDS ORDERED: PANTOPRAZOLE 40 MG TABLET PO SCH (22:00)
--- NOTE | 2021-10-16 22:19 | PN ---
PROGRESS NOTE DATE OF SERVICE: 10/16/2021 REASON FOR FOLLOWUP: 1. Pneumonia. 2. Positive blood culture. INTERVAL HISTORY: The patient is afebrile. The patient is currently on room air, still complaining of cough and wheezing. Denies any chest pain. No vomiting. No abdominal pain or diarrhea. PHYSICAL EXAMINATION: Blood pressure is 156/76, pulse of 77, temperature 97.8. She is 96% on room air. General description is an elderly female up in the bed in no distress. Respiratory system: Unlabored breathing. Occasional wheeze. Heart S1, S2. Regular rate and rhythm. Abdomen soft, no tenderness. LABS: Hemoglobin 8.1, white count 3.9, creatinine 1.47. Blood culture has been negative. Sputum is usual respiratory alexsandra. DIAGNOSTIC IMPRESSION AND PLAN: 1. Patient admitted to hospital with shortness of breath and a cough with concern for asthma exacerbation and possible community-acquired pneumonia. Covered with Rocephin and Zithromax. Sputum negative for resistant pathogen. 2. Positive blood culture with coagulase-negative Staphylococcus, likely skin contaminant. No need for vancomycin. MMODL / IJN: [id number] /
[2021-10-16 22:52] LABS: Glucose,Whole Blood 303 mg/dL (75-99)
[2021-10-16] MEDS ORDERED: SODIUM CHLORIDE 0.9% 1,000 ML IV ONE (23:03)
--- NOTE | 2021-10-17 00:16 | CT ---
EXAMINATION TYPE: CT abdomen pelvis wo con DATE OF EXAM: 10/16/2021 COMPARISON: 05/21/2019 HISTORY: pain CT DLP: 1790.9 mGycm Automated exposure control for dose reduction was used. There is some mild infiltrate and atelectasis at the lung bases. There is no pleural effusion. Heart size is normal. There is no pericardial effusion. Liver spleen stomach pancreas gallbladder appear intact. There is large 2 cm calcified gallstone. The bile ducts are not dilated. There is no adrenal mass. Kidneys have normal size. There is no hydronephrosis. There is no retroperi toneal adenopathy. Ureters are not dilated. Bladder distends smoothly. There is numerous calcified ut erine fibroids. Proximal femurs and hip joints are intact. There is mild acetabular spurring. There is atheroscleroti c vascular calcification. There is some retained fecal material in the transverse colon. There is complex mass involving the anterior abdominal wall extending from the liver to the pubic bon e that measures up to 7.5 cm in thickness and has with up to 11 cm. The length is 32 cm and is consis tent with large acute and chronic anterior abdominal wall muscular hematoma. There is extraperitoneal hematoma also extension towards the left side of the pelvis along the left lateral pelvic sidewall a nd measures up to 3 cm in thickness. There is elongation of the urinary bladder between the hematoma and the fibroid uterus. There is no free air. There is no ascites. I see no evidence of a bowel obstruction. There are spondylotic changes in the lumbar spine. There is degenerative disc space with mild narrowi ng at L4-5 and L5-S1 with spurring. There is vacuum disc. There is no compression fracture. Bony pelv is is intact. IMPRESSION: Large anterior extraperitoneal abdominal wall hematoma has acute and chronic components. There is als o extraperitoneal hemorrhage in the pelvis on the left side. Hematoma appears new compared to old exa m. Cholelithiasis. Enlarged fibroid uterus. There is some increased minimal linear infiltrate and atelec tasis at the lung bases compared to old exam. Multiple attempts were made to notify the medical staff on the floor but this was unsuccessful.
[2021-10-17] MEDS ORDERED: PROTAMINE SULFATE 10 MG/ML 5 ML VIAL IV STA (00:33)
[2021-10-17 00:54] LABS: Glucose,Whole Blood 339 mg/dL (75-99)
[2021-10-17] MEDS: glipiZIDE 5 MG TAB PO SCH ×4 (01:18→22:35)
[2021-10-17] MEDS: SODIUM CHLORIDE 0.9% 1,000 ML in EMPTY BAG 1 BAG IV SCH ×4 (01:19→20:53)
--- NOTE | 2021-10-17 01:20 | P.EN ---
A team note, notified by RN patient having sudden change in mental status , and blood pressure dropped systolic in the low 100. heart rate 110s with frequent PAC patient is 75 admitted for NSTEMI on heparin drip with plan for left heart cath in AM , also diagnosed with CAP on antibiotics on exam patient lethargic but arousable , this is new , she was alert earlier BP 100/65 HR 108, oxygen sat 100% on 4L lulngs good breath sounds bilaterally no leg edema , no tenderness to palpation of the calf muscles abd, there is palpable tender mass to superficial palpation , no skin changes trops initial 5 then 3 echocardiogram , no CHF , with LVEF 55% JOURDAN plan hold lasix , hold hydralazine 1 L bolus normal saline check Mg, CBC, LA stat CT of abd no contrast interval exam CT results came back showing large extraperitoneal abd wall acute on chronic hemorrhage extending to the pelvis. measuring 7.5X 11X 32 cm plan discontinue heparin protamine sulfate 20 mg to reverse, then check PTT trend Hgb (baseline 8.1) transfer to ICU type and screen , prepare 2 units of blood for possible transfusion cardiology updated case discussed with ICU attending case discussed with oncall general surgery , recommended adding abd binder family updated primary team updated Total amount of critical care time spent was 65 minutes not counting procedures performed.
[2021-10-17] MEDS: methylPREDNISolone SOD SUCCI 125 MG/2 ML VIAL IV SCH ×5 (02:22→20:45)
[2021-10-17] MEDS ORDERED: ONDANSETRON 4 MG/2 ML VIAL IVP PRN (04:03)
--- NOTE | 2021-10-17 04:32 | XR ---
EXAMINATION TYPE: XR chest 1V portable DATE OF EXAM: 10/17/2021 COMPARISON: Yesterday HISTORY: Cough. Possible aspiration. TECHNIQUE: Single view FINDINGS: There is some blunting of the left costophrenic angle. Heart size is normal. There is no he art failure. There are chest leads. IMPRESSION: Pleural reaction and fluid at the left lung base slightly increased compared to yesterday . No heart failure.
[2021-10-17 05:05] LABS: Basophils % (A) 0 %; Eosinophils % (A) 0 %; HCT 20.6 % (34.0-46.0); Hypochromasia Marked; Lymphocytes # (A) 0.9 k/uL (1.0-4.8); Lymphocytes % (A) 9 %; MCH 29.1 pg (25.0-35.0); MCHC 31.4 g/dL (31.0-37.0); Mean Platelet Volume 8.8; Monocytes # (A) 0.4 k/uL (0-1.0); Monocytes % (A) 4 %; Neutrophils # (A) 8.1 k/uL (1.3-7.7); Neutrophils % (A) 84 %; Platelet Count 228 k/uL (150-450); RBC 2.22 m/uL (3.80-5.40); RDW 15.3 % (11.5-15.5); WBC 9.7 k/uL (3.8-10.6)
[2021-10-17 05:07] LABS: MCV 92.8 fL (80.0-100.0)
[2021-10-17 05:09] LABS: Albumin 2.7 g/dL (3.5-5.0); Calcium 7.8 mg/dL (8.4-10.2); HGB 6.5 gm/dL (11.4-16.0); Potassium 4.4 mmol/L (3.5-5.1); Total Bilirubin 0.2 mg/dL (0.2-1.3); Total Protein 5.9 g/dL (6.3-8.2)
[2021-10-17 06:42] LABS: Basophils % (A) 0 %; Eosinophils % (A) 1 %; Hypochromasia Marked; Lymphocytes # (A) 0.5 k/uL (1.0-4.8); Lymphocytes % (A) 6 %; MCH 28.6 pg (25.0-35.0); MCHC 30.1 g/dL (31.0-37.0); Mean Platelet Volume 8.9; Monocytes # (A) 0.3 k/uL (0-1.0); Monocytes % (A) 4 %; Neutrophils # (A) 6.6 k/uL (1.3-7.7); Neutrophils % (A) 87 %; Platelet Count 235 k/uL (150-450); RBC 2.08 m/uL (3.80-5.40); RDW 14.8 % (11.5-15.5); WBC 7.6 k/uL (3.8-10.6)
[2021-10-17 06:43] LABS: HGB 5.9 gm/dL (11.4-16.0)
[2021-10-17 06:44] LABS: HCT 19.7 % (34.0-46.0); MCV 95.1 fL (80.0-100.0)
[2021-10-17] MEDS: LEVOTHYROXINE 25 MCG TAB PO SCH (06:55)
[2021-10-17] MEDS ORDERED: HEPARIN SODIUM,PORCINE 10,000 UNIT in SODIUM CHLORIDE 0.9% 1,000 ML IRRIGATION PRN (07:00)
[2021-10-17] MEDS ORDERED: HEPARIN SODIUM,PORCINE 2,500 UNIT in SODIUM CHLORIDE 0.9% 250 ML IRRIGATION PRN (07:00)
[2021-10-17] MEDS ORDERED: ASPIRIN 325 MG TAB PO ONE (07:00)
[2021-10-17] MEDS ORDERED: ATORVASTATIN 80 MG TAB PO ONE (07:00)
[2021-10-17] MEDS: INSULIN ASPART (NovoLOG) 100 UNIT/ML VIAL SQ SCH ×4 (07:15→20:51)
[2021-10-17 07:23] LABS: Glucose,Whole Blood 297 mg/dL (75-99)
--- NOTE | 2021-10-17 07:23 | P.GSCN ---
History of Present Illness Consult date: 10/17/21 History of present illness: CHIEF COMPLAINT: Abdominal wall hematoma HISTORY OF PRESENT ILLNESS: The patient is a 75 year old female who initially presented to the hospital on 10/13/2021 with chest pain and difficulty breathing. She was diagnosed with chest with heart failure with exacerbation and admitted. Additional cardiology workup demonstrated elevated and rising troponins from 0.0572 8.02. Ehocardiogram with ejection fraction 55-60% as well as severe pulmonary hypertension. She was started on heparin drip since 10/14/2021. Her hemoglobin on admission was anemic at 8.6. Last hemoglobin was 8.1 earlier today. She also has chronic renal insufficiency with creatinine elevated at 1.36. She had an acute cardiopulmonary event with change in mental status, hypotension and tachycardia arrhythmia. Emergent computed tomography scan was obtained demonstrating new acute abdominal wall hematoma. Patient has been transferred from the floor to the intensive care unit. General surgery is consulted for acute abdominal wall hematoma. Patient prefers additional history with recent history of falls at home prior to admission to the emergency room. PAST MEDICAL HISTORY: See list and reviewed PAST SURGICAL HISTORY: See list and reviewed MEDICATIONS: See list and reviewed ALLERGIES: See list and reviewed SOCIAL HISTORY: See list and reviewed FAMILY HISTORY: See list and reviewed REVIEW OF ORGAN SYSTEMS: CONSTITUTIONAL: Has morbid obesity. Body mass index 21.4. EYES: Denies any trouble with vision. No glasses. HEENT: No difficulties with hearing. No nosebleeds. No difficulty swallowing. RESPIRATORY: On presentation asthma. Has chronic obstructive pulmonary disease and asthma. CARDIOVASCULAR: Recent chest pain, palpitations, or recent heart attacks. Has hyperlipidemia and hypertensive heart disease. GASTROINTESTINAL: No recent blood in stools. GENITOURINARY: No recent blood in urine or increased urinary frequency. NEUROLOGICAL: History of stroke. MUSCULOSKELETAL: Has back pain, stiffness or joint arthritis. Has rheumatoid arthritis. SKIN: No current skin cancer. No rash. PSYCHIATRIC: Denies current depression or suicidal thoughts. ENDOCRINE: Has diabetes mellitus type 2. On steroids. HEME/LYMPHATIC: Denies any lumps and bumps around the neck. No recent deep venous thrombosis. ALLERGY/IMMUNOLOGY: No immunoglobulin therapy. No immune deficiencies. BREAST: No current breast lumps, pain or nipple discharge. PHYSICAL EXAM: VITALS: Reviewed CONSTITUTIONAL: Well developed and in no acute distress. EYES: Conjuctivae without sclera icterus. Extraocular movements grossly intact. HEAD, EARS, NOSE, THROAT: Moist buccal mucosa. Head is atraumatic, normocephalic. Hears conversational speech. No nasal drainage. NECK: Supple. No JV distention. No gross thyroidomegaly. RESPIRATORY: Non-labored respirations and equal bilateral excursions. No gross wheezes. CARDIOVASCULAR: Regular rate and rhythm. Extremities without moderate edema. Palpable 2+ radial pulses. ABDOMEN: Palpable mass along the mid abdomen 8 x 10 cm. Tender. No diffuse peritonitis. No ecchymoses along the abdomen. LYMPH: No gross neck lymphadenopathy. MUSCULOSKELETAL: No clubbing cyanosis. SKIN: Warm and well perfused with good skin turgor. NEUROLOGIC: Cranial nerves II through XII grossly intact. Sensation upper and extremities intact. No focal or lateralizing signs. PSYCH: Appropriate affect. Alert and oriented to person, place. Displays appropriate insight. CLINCAL LABS: Reviewed. Hemoglobin on admission 8.6. Hemoglobin earlier today 8.1. Troponin elevation over 8.0 on admission. Creatinine on admission 1.36. BNP on admission 2540 IMAGING: Independently reviewed CT of the abdomen and pelvis demonstrates abdominal wall hematoma involving the midline. Retroperitoneal hematoma along the pelvis displacing the bladder. No free fluid. This is my independent interpretation. RADIOLOGY: Report reviewed CT of the abdomen pelvis demonstrates 2 cm gallstone. Abdominal hematoma 7.5 x 11 x 32 cm hematoma at the abdominal wall musculature. Extraperitoneal hematoma involving the left pelvis and bladder. ECHO: Reviewed with ejection fraction 55-60% with [id number] pulmonary hypertension. ASSESSMENT: 1. Abnormal computed tomography scan for large abdominal wall hematoma 2. Acute blood loss anemia due to heparin and abdominal wall hematoma 3. Acute exacerbation of congestive heart failure PLAN: 1. Continue with monitor intensive care unit with serial hemoglobin 2. Immediately reverse heparin due to acute abdominal wall hematoma 3. Recommend abdominal binder with compression 4. Recommend bed rest 5. Patient high surgical risk for acute decompression blood loss of acute a bdominal wall hematoma. Recommend conservative management. ADVANCE DIRECTIVE: Thank you for this kind consultation. Past Medical History Past Medical History: Asthma, CVA/TIA, Diabetes Mellitus, Hyperlipidemia, Hypertension, Rheumatoid Arthritis (RA) Additional Past Medical History / Comment(s): TIA in 2016 History of Any Multi-Drug Resistant Organisms: None Reported Past Surgical History: Appendectomy, Tubal Ligation Additional Past Surgical History / Comment(s): Colonoscopy, cataracts surg Past Anesthesia/Blood Transfusion Reactions: No Reported Reaction Past Psychological History: No Psychological Hx Reported Smoking Status: Never smoker Past Alcohol Use History: None Reported Past Drug Use History: None Reported - Past Family History Father Family Medical History: Cancer, Congestive Heart Failure (CHF) Additional Family Medical History / Comment(s): colon cancer Mother Family Medical History: Rheumatoid Arthritis (RA) Medications and Allergies Home Medications Medication Instructions Recorded Confirmed Type Clopidogrel [Plavix] 75 mg PO DAILY 05/14/19 10/13/21 History Metoprolol Succinate (ER) [Toprol 25 mg PO DAILY 05/14/19 10/13/21 History XL] lisinopriL 40 mg PO DAILY 05/14/19 10/13/21 History Montelukast [Singulair] 10 mg PO HS #30 tab 05/24/19 10/13/21 Rx Albuterol Inhaler [Ventolin Hfa 1 - 2 puff INHALATION RT-QID PRN 06/14/20 10/13/21 History Inhaler] Tolterodine ER [Detrol LA] 4 mg PO DAILY 06/14/20 10/13/21 History Ferrous Sulfate [Iron (65 MG 325 mg PO DAILY 02/16/21 10/13/21 History Elemental)] Acetaminophen Tab [Tylenol Tab] 1,000 mg PO Q6HR PRN 10/13/21 10/13/21 History Cholecalciferol [Vitamin D3 (25 50 mcg PO DAILY 10/13/21 10/13/21 History Mcg = 1000 Iu)] Ezetimibe [Zetia] 10 mg PO DAILY 10/13/21 10/13/21 History Levothyroxine Sodium [Synthroid] 25 mcg PO DAILY 10/13/21 10/13/21 History glipiZIDE [Glucotrol] 5 mg PO TID 10/13/21 10/13/21 History guaiFENesin [Diabetic Tussin] 200 mg PO Q6H PRN 10/13/21 10/13/21 History predniSONE 5 mg PO DAILY 10/13/21 10/13/21 History prednisoLONE ACETATE 1% OPHTH 1 drops BOTH EYES QID 10/13/21 10/13/21 History [Pred Forte 1%] Allergies Allergy/AdvReac Type Severity Reaction Status Date / Time atorvastatin [From Lipitor] AdvReac CRAMPS Verified 10/13/21 10:53 latex AdvReac Itching Verified 10/13/21 10:53 Surgical - Exam Vital Signs Pulse 112 H 10/13/21 09:59 Results - Labs 10/17/21 04:27 10/17/21 04:27 Abnormal Lab Results - Last 24 Hours (Table) 10/16/21 10/16/21 10/16/21 Range/Units 06:03 06:43 06:43 RBC (3.80-5.40) m/uL Hgb (11.4-16.0) gm/dL Hct (34.0-46.0) % Lymphocytes # (1.0-4.8) k/uL APTT 43.5 H (22.0-30.0) sec Carbon Dioxide 21 L (22-30) mmol/L BUN 53 H (7-17) mg/dL Creatinine 1.47 H (0.52-1.04) mg/dL Glucose 132 H (74-99) mg/dL POC Glucose (mg/dL) 162 H (75-99) mg/dL Albumin 3.2 L (3.5-5.0) g/dL 10/16/21 10/16/21 10/16/21 Range/Units 06:43 11:56 16:21 RBC 2.85 L (3.80-5.40) m/uL Hgb 8.1 L (11.4-16.0) gm/dL Hct 24.9 L (34.0-46.0) % Lymphocytes # 0.5 L (1.0-4.8) k/uL APTT (22.0-30.0) sec Carbon Dioxide (22-30) mmol/L BUN (7-17) mg/dL Creatinine (0.52-1.04) mg/dL Glucose (74-99) mg/dL POC Glucose (mg/dL) 181 H 115 H (75-99) mg/dL Albumin (3.5-5.0) g/dL 10/16/21 10/16/21 10/17/21 Range/Units 20:05 22:50 00:52 RBC (3.80-5.40) m/uL Hgb (11.4-16.0) gm/dL Hct (34.0-46.0) % Lymphocytes # (1.0-4.8) k/uL APTT (22.0-30.0) sec Carbon Dioxide (22-30) mmol/L BUN (7-17) mg/dL Creatinine (0.52-1.04) mg/dL Glucose (74-99) mg/dL POC Glucose (mg/dL) 214 H 303 H 339 H (75-99) mg/dL Albumin (3.5-5.0) g/dL Microbiology - Last 24 Hours (Table) 10/13/21 09:58 Blood Culture - Preliminary Blood No Growth after 72 hours 10/14/21 07:49 Gram Stain - Final Sputum Sputum Culture - Final Diabetes panel 10/16/21 Range/Units 06:43 Sodium 137 (137-145) mmol/L Potassium 3.9 (3.5-5.1) mmol/L Chloride 104 (98-107) mmol/L Carbon Dioxide 21 L (22-30) mmol/L BUN 53 H (7-17) mg/dL Creatinine 1.47 H (0.52-1.04) mg/dL Glucose 132 H (74-99) mg/dL Calcium 8.5 (8.4-10.2) mg/dL AST 27 (14-36) U/L ALT 15 (4-34) U/L Alkaline Phosphatase 70 (38-126) U/L Total Protein 7.2 (6.3-8.2) g/dL Albumin 3.2 L (3.5-5.0) g/dL Calcium panel 10/16/21 Range/Units 06:43 Calcium 8.5 (8.4-10.2) mg/dL Albumin 3.2 L (3.5-5.0) g/dL Pituitary panel 10/16/21 Range/Units 06:43 Sodium 137 (137-145) mmol/L Potassium 3.9 (3.5-5.1) mmol/L Chloride 104 (98-107) mmol/L Carbon Dioxide 21 L (22-30) mmol/L BUN 53 H (7-17) mg/dL Creatinine 1.47 H (0.52-1.04) mg/dL Glucose 132 H (74-99) mg/dL Calcium 8.5 (8.4-10.2) mg/dL Adrenal panel 10/16/21 Range/Units 06:43 Sodium 137 (137-145) mmol/L Potassium 3.9 (3.5-5.1) mmol/L Chloride 104 (98-107) mmol/L Carbon Dioxide 21 L (22-30) mmol/L BUN 53 H (7-17) mg/dL Creatinine 1.47 H (0.52-1.04) mg/dL Glucose 132 H (74-99) mg/dL Calcium 8.5 (8.4-10.2) mg/dL Total Bilirubin 0.3 (0.2-1.3) mg/dL AST 27 (14-36) U/L ALT 15 (4-34) U/L Alkaline Phosphatase 70 (38-126) U/L Total Protein 7.2 (6.3-8.2) g/dL Albumin 3.2 L (3.5-5.0) g/dL Assessment and Plan (1) Acute exacerbation of congestive heart failure Current Visit: Yes Status: Acute Code(s): I50.9 - HEART FAILURE, UNSPECIFIED SNOMED Code(s): 144786170 (2) Acute blood loss anemia Current Visit: Yes Status: Acute Code(s): D62 - ACUTE POSTHEMORRHAGIC ANEMIA SNOMED Code(s): 007205665 (3) Hypotension due to blood loss Current Visit: Yes Status: Acute Code(s): I95.89 - OTHER HYPOTENSION; R58 - HEMORRHAGE, NOT ELSEWHERE CLASSIFIED SNOMED Code(s): 72074902 (4) Abdominal wall hematoma Current Visit: Yes Status: Acute Code(s): S30.1XXA - CONTUSION OF ABDOMINAL WALL, INITIAL ENCOUNTER SNOMED Code(s): 132847690 (5) Diabetes type 2, uncontrolled Current Visit: Yes Status: Acute Code(s): E11.65 - TYPE 2 DIABETES MELLITUS WITH HYPERGLYCEMIA SNOMED Code(s): 265863285
--- NOTE | 2021-10-17 07:29 | P.PN ---
Subjective Progress Note Date: 10/17/21 Principal diagnosis: Hypertension emergency The patient is a pleasant 75-year-old female patient with a past medical history significant for asthma and hypertension and dyslipidemia who was admitted to the hospital with hypertension emergency complicated by acute non-ST deviation myocardial infarction as well as heart failure. The patient was seen this morning. She was seen yesterday by our service and she is scheduled to undergo a cardiac catheterization to rule out severe CAD. Unfortunately she developed abdominal wall hematoma and surgery was consulted and advised to treat the patient conservatively. The patient was seen this morning. She is anemic and currently she is receiving blood transfusion. Hemodynamically she remained stable without any vasopressors. Heparin was stopped and reversed yesterday. Currently she is on antiplatelet only. She has no symptoms of chest pain or chest discomfort and her wheezing has improved significantly. Objective - Vital Signs Vital signs: Vital Signs Temp 97 F L 10/17/21 06:58 Pulse 86 10/17/21 07:00 Resp 18 10/17/21 07:00 BP 122/65 10/17/21 07:00 Pulse Ox 80 L 10/17/21 07:00 Intake & Output 10/16/21 10/17/21 10/17/21 18:59 06:59 18:59 Intake Total 478 700 20 Output Total 450 440 5 Balance 28 260 15 Intake: IV 80 20 .9 80 20 Oral 478 Blood Product 620 Rc As-1 Unit 310 [id number] Rc As-1 Unit 310 [id number] Output: Urine 450 440 5 Other: Voiding Method Bedside Commode Indwelling Catheter Diaper - Constitutional General appearance: Present: no acute distress - Respiratory Respiratory: bilateral: wheezing - Cardiovascular Rhythm: regular - Labs CBC & Chem 7: 10/17/21 04:27 10/17/21 04:27 Labs: Abnormal Lab Results - Last 24 Hours (Table) 10/16/21 10/16/21 10/16/21 Range/Units 06:43 06:43 06:43 RBC 2.85 L (3.80-5.40) m/uL Hgb 8.1 L (11.4-16.0) gm/dL Hct 24.9 L (34.0-46.0) % MCHC (31.0-37.0) g/dL Neutrophils # (1.3-7.7) k/uL Lymphocytes # 0.5 L (1.0-4.8) k/uL APTT 43.5 H (22.0-30.0) sec Sodium (137-145) mmol/L Carbon Dioxide 21 L (22-30) mmol/L BUN 53 H (7-17) mg/dL Creatinine 1.47 H (0.52-1.04) mg/dL Glucose 132 H (74-99) mg/dL POC Glucose (mg/dL) (75-99) mg/dL Plasma Lactic Acid Bryan (0.7-2.0) mmol/L Calcium (8.4-10.2) mg/dL Total Protein (6.3-8.2) g/dL Albumin 3.2 L (3.5-5.0) g/dL Crossmatch 10/16/21 10/16/21 10/16/21 Range/Units 11:56 16:21 20:05 RBC (3.80-5.40) m/uL Hgb (11.4-16.0) gm/dL Hct (34.0-46.0) % MCHC (31.0-37.0) g/dL Neutrophils # (1.3-7.7) k/uL Lymphocytes # (1.0-4.8) k/uL APTT (22.0-30.0) sec Sodium (137-145) mmol/L Carbon Dioxide (22-30) mmol/L BUN (7-17) mg/dL Creatinine (0.52-1.04) mg/dL Glucose (74-99) mg/dL POC Glucose (mg/dL) 181 H 115 H 214 H (75-99) mg/dL Plasma Lactic Acid Bryan (0.7-2.0) mmol/L Calcium (8.4-10.2) mg/dL Total Protein (6.3-8.2) g/dL Albumin (3.5-5.0) g/dL Crossmatch 10/16/21 10/17/21 10/17/21 Range/Units 22:50 00:52 01:08 RBC (3.80-5.40) m/uL Hgb (11.4-16.0) gm/dL Hct (34.0-46.0) % MCHC (31.0-37.0) g/dL Neutrophils # (1.3-7.7) k/uL Lymphocytes # (1.0-4.8) k/uL APTT (22.0-30.0) sec Sodium (137-145) mmol/L Carbon Dioxide (22-30) mmol/L BUN (7-17) mg/dL Creatinine (0.52-1.04) mg/dL Glucose (74-99) mg/dL POC Glucose (mg/dL) 303 H 339 H (75-99) mg/dL Plasma Lactic Acid Bryan (0.7-2.0) mmol/L Calcium (8.4-10.2) mg/dL Total Protein (6.3-8.2) g/dL Albumin (3.5-5.0) g/dL Crossmatch See Detail 10/17/21 10/17/21 10/17/21 Range/Units 01:08 01:08 04:27 RBC 2.08 L 2.22 L (3.80-5.40) m/uL Hgb 5.9 L* D 6.5 L* (11.4-16.0) gm/dL Hct 19.7 L* 20.6 L (34.0-46.0) % MCHC 30.1 L (31.0-37.0) g/dL Neutrophils # 8.1 H (1.3-7.7) k/uL Lymphocytes # 0.5 L 0.9 L (1.0-4.8) k/uL APTT (22.0-30.0) sec Sodium (137-145) mmol/L Carbon Dioxide (22-30) mmol/L BUN (7-17) mg/dL Creatinine (0.52-1.04) mg/dL Glucose (74-99) mg/dL POC Glucose (mg/dL) (75-99) mg/dL Plasma Lactic Acid Bryan 5.5 H* (0.7-2.0) mmol/L Calcium (8.4-10.2) mg/dL Total Protein (6.3-8.2) g/dL Albumin (3.5-5.0) g/dL Crossmatch 10/17/21 10/17/21 10/17/21 Range/Units 04:27 04:27 07:11 RBC (3.80-5.40) m/uL Hgb (11.4-16.0) gm/dL Hct (34.0-46.0) % MCHC (31.0-37.0) g/dL Neutrophils # (1.3-7.7) k/uL Lymphocytes # (1.0-4.8) k/uL APTT (22.0-30.0) sec Sodium 134 L (137-145) mmol/L Carbon Dioxide 18 L (22-30) mmol/L BUN 59 H (7-17) mg/dL Creatinine 2.21 H (0.52-1.04) mg/dL Glucose 321 H (74-99) mg/dL POC Glucose (mg/dL) 297 H (75-99) mg/dL Plasma Lactic Acid Bryan 6.3 H* (0.7-2.0) mmol/L Calcium 7.8 L (8.4-10.2) mg/dL Total Protein 5.9 L (6.3-8.2) g/dL Albumin 2.7 L (3.5-5.0) g/dL Crossmatch Microbiology - Last 24 Hours (Table) 10/13/21 09:58 Blood Culture - Preliminary Blood No Growth after 72 hours 10/14/21 07:49 Gram Stain - Final Sputum Sputum Culture - Final Assessment and Plan Assessment: Assessment #1 hypertension emergency #2 evidence of myocardial injury likely secondary to hypertension emergency. Severe/obstructive CAD to be ruled out #3 heart failure exacerbation secondary to heart failure with preserved ejection fraction #3 acute renal failure #4 bilateral expiratory wheezing could be related to cardiac asthma #5 history of TIA/CVA #6 abdominal wall hematoma Plan #1 continue holding any anticoagulation at this point #2 surgery on the case regarding the abdominal wall hematoma and the decision to treat the patient conservatively #3 continue monitoring the hemoglobin and blood transfusion if the hemoglobin dropped below 7 #4 follow-up with the patient
[2021-10-17] MEDS: PANTOPRAZOLE 40 MG/10 ML VIAL IVP SCH (09:25)
[2021-10-17 09:55] LABS: Basophils % (A) 0 %; Eosinophils % (A) 0 %; HCT 29.5 % (34.0-46.0); Hypochromasia Moderate; Lymphocytes # (A) 0.9 k/uL (1.0-4.8); Lymphocytes % (A) 7 %; MCH 28.9 pg (25.0-35.0); MCHC 31.3 g/dL (31.0-37.0); MCV 92.3 fL (80.0-100.0); Mean Platelet Volume 8.9; Monocytes # (A) 0.7 k/uL (0-1.0); Monocytes % (A) 5 %; Neutrophils # (A) 11.6 k/uL (1.3-7.7); Neutrophils % (A) 85 %; Platelet Count 211 k/uL (150-450); RDW 14.9 % (11.5-15.5); WBC 13.6 k/uL (3.8-10.6)
[2021-10-17 10:01] LABS: HGB 9.2 gm/dL (11.4-16.0)
[2021-10-17] MEDS: prednisoLONE ACETATE 1% OPHTH DROPS 5 ML BTL BOTH EYES SCH ×4 (10:46→20:45)
[2021-10-17] MEDS: OXYBUTYNIN 10 MG TAB.ER.24 PO SCH (10:51)
[2021-10-17 11:24] LABS: Glucose,Whole Blood 229 mg/dL (75-99)
[2021-10-17] MEDS: DOCUSATE 100 MG CAP PO SCH ×2 (11:26→20:45)
[2021-10-17] MEDS: EZETIMIBE 10 MG TAB PO SCH (11:26)
[2021-10-17] MEDS ORDERED: SODIUM CHLORIDE 0.9% 500 ML 500 ML IV ONE (12:12)
--- NOTE | 2021-10-17 14:08 | P.PN ---
Subjective Progress Note Date: 10/17/21 Principal diagnosis: Acute non-ST elevation myocardial infarction This is a 75-year-old -[place] female, known history of asthma, hypertension, dyslipidemia, patient was admitted initially on 10/13/21, with chief complaint of chest discomfort. Patient was seen by cardiology on consultation, patient was felt to have hypertensive emergency, non-ST elevation myocardial infarction, anemia, and renal failure. Patient was placed on heparin, her beta blockers were discontinued because of severe expiratory wheezing on admission. Although it was felt that the patient may have cardiac asthma and she was treated with Lasix for interstitial edema. Patient was supposed to undergo cardiac catheterization today, and she was placed on heparin based on the recommendation by cardiology. Last night, the rapid response team was called to see the patient because of drop in her blood pressure and she was tachycardic. She was also noted to be lethargic, and was noted to be quite anemic. Patient was noted to have large abdominal wall hematoma based on the CT of the abdomen and pelvis it showed a large extraperitoneal abdominal wall hemorrhage measuring 7.61675 cm I was notified about this patient from the rapid response team, and considering the patient was hypotensive, she received 2 units of packed RBCs, I recommended immediate transfer to the ICU I also recommended reversing her heparin with protamine sulfate, and I recommended a stat surgical consultation. Patient was seen on consultation by Dr. Murphy for abdominal wall hematoma, the recommendation was mostly abdominal binder, reverse heparin, no need for surgical intervention at this point. The rec ommendation was mostly conservative measures. I saw this patient in the ICU today, she seems to be hemodynamically stable. Not in any distress, hemoglobin is now 9.2. She already received a total of 2 units of packed RBCs since last night. Her urine output is marginal and I recommended 500 mL of fluid followed by Lasix if the urine output does not improve. Her echocardiogram on admission showed good LV function, and there was moderate concentric LVH. Objective - Vital Signs Vital signs: Vital Signs Temp 97.5 F L 10/17/21 08:30 Pulse 89 10/17/21 12:00 Resp 22 10/17/21 12:00 BP 138/63 10/17/21 12:00 Pulse Ox 100 10/17/21 12:00 Intake & Output 10/16/21 10/17/21 10/17/21 18:59 06:59 18:59 Intake Total 478 700 120 Output Total 450 440 35 Balance 28 260 85 Weight 126.1 kg Intake: IV 80 120 .9 80 120 Oral 478 Blood Product 620 As-1 Unit 310 [id number] As-1 Unit 310 [id number] Output: Urine 450 440 35 Other: Voiding Method Bedside Commode Indwelling Catheter Indwelling Catheter Diaper # Voids 1 - Exam Physical Exam: Revealed a 75-year-old -[place] female, obese, in no distress. Patient is on 2 L nasal cannula with O2 saturation of around percent. Head: Atraumatic, normocephalic. HEENT:[Neck is supple.] [No neck masses.] [No thyromegaly.] [No JVD.] Chest: [Symmetrical chest expansion, minimal crackles at the bases, no rhonchi and no wheezes..] Cardiac Exam: [Normal S1 and S2, no S3 gallop, no murmur.] Abdomen: [Obese, Soft, nontender, no megaly, no rebound, no guarding, normal bowel sounds.] Abdominal binder is noted. Extremities: [No clubbing, no edema, no cyanosis.] Neurological Exam: [No focal neurologic deficit.] Alert oriented 3. Psychiatric: Normal mood, affect and normal mental status examination. Skin: No rashes. - Labs CBC & Chem 7: 10/17/21 09:11 10/17/21 04:27 Labs: Abnormal Lab Results - Last 24 Hours (Table) 10/16/21 10/16/21 10/16/21 Range/Units 06:43 16:21 20:05 WBC (3.8-10.6) k/uL RBC 2.85 L (3.80-5.40) m/uL Hgb 8.1 L (11.4-16.0) gm/dL Hct 24.9 L (34.0-46.0) % MCHC (31.0-37.0) g/dL Neutrophils # (1.3-7.7) k/uL Lymphocytes # 0.5 L (1.0-4.8) k/uL Sodium (137-145) mmol/L Carbon Dioxide (22-30) mmol/L BUN (7-17) mg/dL Creatinine (0.52-1.04) mg/dL Glucose (74-99) mg/dL POC Glucose (mg/dL) 115 H 214 H (75-99) mg/dL Plasma Lactic Acid Bryan (0.7-2.0) mmol/L Calcium (8.4-10.2) mg/dL Total Protein (6.3-8.2) g/dL Albumin (3.5-5.0) g/dL Crossmatch 10/16/21 10/17/21 10/17/21 Range/Units 22:50 00:52 01:08 WBC (3.8-10.6) k/uL RBC (3.80-5.40) m/uL Hgb (11.4-16.0) gm/dL Hct (34.0-46.0) % MCHC (31.0-37.0) g/dL Neutrophils # (1.3-7.7) k/uL Lymphocytes # (1.0-4.8) k/uL Sodium (137-145) mmol/L Carbon Dioxide (22-30) mmol/L BUN (7-17) mg/dL Creatinine (0.52-1.04) mg/dL Glucose (74-99) mg/dL POC Glucose (mg/dL) 303 H 339 H (75-99) mg/dL Plasma Lactic Acid Bryan (0.7-2.0) mmol/L Calcium (8.4-10.2) mg/dL Total Protein (6.3-8.2) g/dL Albumin (3.5-5.0) g/dL Crossmatch See Detail 10/17/21 10/17/21 10/17/21 Range/Units 01:08 01:08 04:27 WBC (3.8-10.6) k/uL RBC 2.08 L 2.22 L (3.80-5.40) m/uL Hgb 5.9 L* D 6.5 L* (11.4-16.0) gm/dL Hct 19.7 L* 20.6 L (34.0-46.0) % MCHC 30.1 L (31.0-37.0) g/dL Neutrophils # 8.1 H (1.3-7.7) k/uL Lymphocytes # 0.5 L 0.9 L (1.0-4.8) k/uL Sodium (137-145) mmol/L Carbon Dioxide (22-30) mmol/L BUN (7-17) mg/dL Creatinine (0.52-1.04) mg/dL Glucose (74-99) mg/dL POC Glucose (mg/dL) (75-99) mg/dL Plasma Lactic Acid Bryan 5.5 H* (0.7-2.0) mmol/L Calcium (8.4-10.2) mg/dL Total Protein (6.3-8.2) g/dL Albumin (3.5-5.0) g/dL Crossmatch 10/17/21 10/17/21 10/17/21 Range/Units 04:27 04:27 07:11 WBC (3.8-10.6) k/uL RBC (3.80-5.40) m/uL Hgb (11.4-16.0) gm/dL Hct (34.0-46.0) % MCHC (31.0-37.0) g/dL Neutrophils # (1.3-7.7) k/uL Lymphocytes # (1.0-4.8) k/uL Sodium 134 L (137-145) mmol/L Carbon Dioxide 18 L (22-30) mmol/L BUN 59 H (7-17) mg/dL Creatinine 2.21 H (0.52-1.04) mg/dL Glucose 321 H (74-99) mg/dL POC Glucose (mg/dL) 297 H (75-99) mg/dL Plasma Lactic Acid Bryan 6.3 H* (0.7-2.0) mmol/L Calcium 7.8 L (8.4-10.2) mg/dL Total Protein 5.9 L (6.3-8.2) g/dL Albumin 2.7 L (3.5-5.0) g/dL Crossmatch 10/17/21 10/17/21 10/17/21 Range/Units 09:11 09:11 11:22 WBC 13.6 H (3.8-10.6) k/uL RBC 3.20 L (3.80-5.40) m/uL Hgb 9.2 L D (11.4-16.0) gm/dL Hct 29.5 L (34.0-46.0) % MCHC (31.0-37.0) g/dL Neutrophils # 11.6 H (1.3-7.7) k/uL Lymphocytes # 0.9 L (1.0-4.8) k/uL Sodium (137-145) mmol/L Carbon Dioxide (22-30) mmol/L BUN (7-17) mg/dL Creatinine (0.52-1.04) mg/dL Glucose (74-99) mg/dL POC Glucose (mg/dL) 229 H (75-99) mg/dL Plasma Lactic Acid Bryan 5.2 H* (0.7-2.0) mmol/L Calcium (8.4-10.2) mg/dL Total Protein (6.3-8.2) g/dL Albumin (3.5-5.0) g/dL Crossmatch Microbiology - Last 24 Hours (Table) 10/13/21 09:58 Blood Culture - Preliminary Blood No Growth after 96 hours 10/14/21 07:49 Gram Stain - Final Sputum Sputum Culture - Final Assessment and Plan Assessment: Impression: Acute blood loss anemia, secondary to heparin, patient developed abdominal wall hematoma, status post 2 units of packed RBC transfusion. Acute on chronic diastolic congestive heart failure Hypertensive emergency on presentation according to the notes by cardiology. Non-ST elevation myocardial infarction History of TIA History of hypertension History of dyslipidemia Recommendation: Agree with the present treatment plan No more heparin at this point. Continue abdominal binder. Continue cardiac meds for hypertension. Continue to monitor hemoglobin. Nephrology to evaluate for acute kidney injury, creatinine seems to be arising since admission is presently 2.21 with BUN of 59. We will continue to monitor the patient and follow the patient in the ICU for the next 24 hours. Prognosis is relatively guarded Time with Patient: Greater than 30
--- NOTE | 2021-10-17 14:36 | P.PN ---
Subjective Progress Note Date: 10/17/21 CHIEF COMPLAINT: Abdominal wall hematoma HISTORY OF PRESENT ILLNESS: The patient is a 75 year old female who initially presented to the hospital on 10/13/2021 with chest pain and difficulty breathing. She was diagnosed with chest with heart failure with exacerbation and admitted. Additional cardiology workup demonstrated elevated and rising troponins from 0.0572 8.02. Ehocardiogram with ejection fraction 55-60% as well as severe pulmonary hypertension. She was started on heparin drip since 10/14/2021. Her hemoglobin on admission was anemic at 8.6. She also has history of chronic renal insufficiency with creatinine elevated at 1.36. She had an acute cardiopulmonary event with change in mental status, hypotension and tachycardia arrhythmia. Emergent computed tomography scan was obtained demonstrating new acute abdominal wall hematoma. Patient has been transferred from the floor to the intensive care unit. General surgery is consulted for acute abdominal wall hematoma. Patient was reevaluated in the ICU. Abdominal binder has been applied. Patient states abdominal pain has improved. She had a drop in her hemoglobin from 8.1 yesterday morning to 5.9 was given 1 unit of PRBC transfusion with a repeat hemoglobin at 04 30-6.5. Patient then was given a second unit of PRBC transfusion with a repeat hemoglobin of 9.2. Patient denies any nausea or vomiting. Her vital signs have been stable. She's been afebrile. PHYSICAL EXAM: VITAL SIGNS: Reviewed GENERAL: Well-developed in no acute distress. HEENT: No sclera icterus. Extraocular movements grossly intact. Moist buccal mucosa. Head is atraumatic, normocephalic. Hears conversational speech. No nasal drainage. NECK: Supple without lymphadenopathy. CHEST: Non-labored respirations and equal bilateral excursions. CARDIOVASCULAR: Palpable 2+ radial pulses. ABDOMEN: Soft. Nondistended. Mild tenderness to the right mid abdomen, with palpable mass. No diffuse peritonitis. No ecchymosis along the abdomen. Abdominal binder in place. MUSCULOSKELETAL: No clubbing or cyanosis. NEUROLOGIC: No focal or lateralizing signs. Cranial nerves II through XII ruddy sly intact. PSYCH: Appropriate affect. Alert and oriented to person, place and time. SKIN: Well perfused. Good skin turgor. ASSESSMENT: 1. Abnormal computed computed tomography scan for large abdominal wall hematoma 2. Acute blood loss anemia due to heparin and abdominal wall hematoma 3. Acute exacerbation of congestive heart failure PLAN: 1. Continue symptomatic and supportive care in the ICU 2. Continue serial hemoglobin every 6 hours 4 3. Hold anticoagulation and antiplatelet therapy 4. Continue with use of abdominal binder for compression 5. Continue bedrest 6. At this time no plans on surgical intervention as patient is high surgical risk for acute deep compression blood loss of acute abdominal wall hematoma. Continue with conservative management The impression and plan of care has been dictated as directed. Dr. Patrick I performed a history and examination of this patient, discussed the same with the dictator. I agree with the dictator's note ,documented as a scribe. Any additional findings or plans will be noted. Objective - Vital Signs Vital signs: Vital Signs Temp 97.5 F L 10/17/21 08:30 Pulse 89 10/17/21 12:00 Resp 22 10/17/21 12:00 BP 138/63 10/17/21 12:00 Pulse Ox 100 10/17/21 12:00 Intake & Output 10/16/21 10/17/21 10/17/21 18:59 06:59 18:59 Intake Total 478 700 120 Output Total 450 440 35 Balance 28 260 85 Weight 126.1 kg Intake: IV 80 120 .9 80 120 Oral 478 Blood Product 620 Rc As-1 Unit 310 [id number] Rc As-1 Unit 310 [id number] Output: Urine 450 440 35 Other: Voiding Method Bedside Commode Indwelling Catheter Indwelling Catheter Diaper # Voids 1 - Labs CBC & Chem 7: 10/17/21 09:11 10/17/21 04:27 Labs: Abnormal Lab Results - Last 24 Hours (Table) 10/16/21 10/16/21 10/16/21 Range/Units 06:43 16:21 20:05 WBC (3.8-10.6) k/uL RBC 2.85 L (3.80-5.40) m/uL Hgb 8.1 L (11.4-16.0) gm/dL Hct 24.9 L (34.0-46.0) % MCHC (31.0-37.0) g/dL Neutrophils # (1.3-7.7) k/uL Lymphocytes # 0.5 L (1.0-4.8) k/uL Sodium (137-145) mmol/L Carbon Dioxide (22-30) mmol/L BUN (7-17) mg/dL Creatinine (0.52-1.04) mg/dL Glucose (74-99) mg/dL POC Glucose (mg/dL) 115 H 214 H (75-99) mg/dL Plasma Lactic Acid Bryan (0.7-2.0) mmol/L Calcium (8.4-10.2) mg/dL Total Protein (6.3-8.2) g/dL Albumin (3.5-5.0) g/dL Crossmatch 10/16/21 10/17/21 10/17/21 Range/Units 22:50 00:52 01:08 WBC (3.8-10.6) k/uL RBC (3.80-5.40) m/uL Hgb (11.4-16.0) gm/dL Hct (34.0-46.0) % MCHC (31.0-37.0) g/dL Neutrophils # (1.3-7.7) k/uL Lymphocytes # (1.0-4.8) k/uL Sodium (137-145) mmol/L Carbon Dioxide (22-30) mmol/L BUN (7-17) mg/dL Creatinine (0.52-1.04) mg/dL Glucose (74-99) mg/dL POC Glucose (mg/dL) 303 H 339 H (75-99) mg/dL Plasma Lactic Acid Bryan (0.7-2.0) mmol/L Calcium (8.4-10.2) mg/dL Total Protein (6.3-8.2) g/dL Albumin (3.5-5.0) g/dL Crossmatch See Detail 10/17/21 10/17/21 10/17/21 Range/Units 01:08 01:08 04:27 WBC (3.8-10.6) k/uL RBC 2.08 L 2.22 L (3.80-5.40) m/uL Hgb 5.9 L* D 6.5 L* (11.4-16.0) gm/dL Hct 19.7 L* 20.6 L (34.0-46.0) % MCHC 30.1 L (31.0-37.0) g/dL Neutrophils # 8.1 H (1.3-7.7) k/uL Lymphocytes # 0.5 L 0.9 L (1.0-4.8) k/uL Sodium (137-145) mmol/L Carbon Dioxide (22-30) mmol/L BUN (7-17) mg/dL Creatinine (0.52-1.04) mg/dL Glucose (74-99) mg/dL POC Glucose (mg/dL) (75-99) mg/dL Plasma Lactic Acid Bryan 5.5 H* (0.7-2.0) mmol/L Calcium (8.4-10.2) mg/dL Total Protein (6.3-8.2) g/dL Albumin (3.5-5.0) g/dL Crossmatch 10/17/21 10/17/21 10/17/21 Range/Units 04:27 04:27 07:11 WBC (3.8-10.6) k/uL RBC (3.80-5.40) m/uL Hgb (11.4-16.0) gm/dL Hct (34.0-46.0) % MCHC (31.0-37.0) g/dL Neutrophils # (1.3-7.7) k/uL Lymphocytes # (1.0-4.8) k/uL Sodium 134 L (137-145) mmol/L Carbon Dioxide 18 L (22-30) mmol/L BUN 59 H (7-17) mg/dL Creatinine 2.21 H (0.52-1.04) mg/dL Glucose 321 H (74-99) mg/dL POC Glucose (mg/dL) 297 H (75-99) mg/dL Plasma Lactic Acid Bryan 6.3 H* (0.7-2.0) mmol/L Calcium 7.8 L (8.4-10.2) mg/dL Total Protein 5.9 L (6.3-8.2) g/dL Albumin 2.7 L (3.5-5.0) g/dL Crossmatch 10/17/21 10/17/21 10/17/21 Range/Units 09:11 09:11 11:22 WBC 13.6 H (3.8-10.6) k/uL RBC 3.20 L (3.80-5.40) m/uL Hgb 9.2 L D (11.4-16.0) gm/dL Hct 29.5 L (34.0-46.0) % MCHC (31.0-37.0) g/dL Neutrophils # 11.6 H (1.3-7.7) k/uL Lymphocytes # 0.9 L (1.0-4.8) k/uL Sodium (137-145) mmol/L Carbon Dioxide (22-30) mmol/L BUN (7-17) mg/dL Creatinine (0.52-1.04) mg/dL Glucose (74-99) mg/dL POC Glucose (mg/dL) 229 H (75-99) mg/dL Plasma Lactic Acid Bryan 5.2 H* (0.7-2.0) mmol/L Calcium (8.4-10.2) mg/dL Total Protein (6.3-8.2) g/dL Albumin (3.5-5.0) g/dL Crossmatch Microbiology - Last 24 Hours (Table) 10/13/21 09:58 Blood Culture - Preliminary Blood No Growth after 96 hours 10/14/21 07:49 Gram Stain - Final Sputum Sputum Culture - Final Assessment and Plan (1) Abdominal wall hematoma Current Visit: Yes Status: Acute Code(s): S30.1XXA - CONTUSION OF ABDOMINAL WALL, INITIAL ENCOUNTER SNOMED Code(s): 216234927 (2) Acute blood loss anemia Current Visit: Yes Status: Acute Code(s): D62 - ACUTE POSTHEMORRHAGIC ANEMIA SNOMED Code(s): 523307639 (3) Hypotension due to blood loss Current Visit: Yes Status: Acute Code(s): I95.89 - OTHER HYPOTENSION; R58 - HEMORRHAGE, NOT ELSEWHERE CLASSIFIED SNOMED Code(s): 27623654 (4) Acute exacerbation of congestive heart failure Current Visit: Yes Status: Acute Code(s): I50.9 - HEART FAILURE, UNSPECIFIED SNOMED Code(s): 848094145 (5) Diabetes type 2, uncontrolled Current Visit: Yes Status: Acute Code(s): E11.65 - TYPE 2 DIABETES MELLITUS WITH HYPERGLYCEMIA SNOMED Code(s): 222623564
[2021-10-17 17:00] LABS: Basophils % (A) 0 %; Eosinophils % (A) 0 %; HCT 26.4 % (34.0-46.0); HGB 8.7 gm/dL (11.4-16.0); Hypochromasia Moderate; Lymphocytes # (A) 1.2 k/uL (1.0-4.8); Lymphocytes % (A) 9 %; MCH 30.3 pg (25.0-35.0); MCHC 32.9 g/dL (31.0-37.0); MCV 92.1 fL (80.0-100.0); Mean Platelet Volume 9.1; Monocytes # (A) 0.6 k/uL (0-1.0); Monocytes % (A) 4 %; Neutrophils # (A) 11.2 k/uL (1.3-7.7); Neutrophils % (A) 84 %; Platelet Count 183 k/uL (150-450); Poikilocytosis Slight; RBC 2.86 m/uL (3.80-5.40); RDW 15.2 % (11.5-15.5); WBC 13.2 k/uL (3.8-10.6)
[2021-10-17 17:06] LABS: INR 0.9 (<1.2); Prothrombin Time 10.1 sec (9.0-12.0)
[2021-10-17] MEDS ORDERED: SENNOSIDES-DOCUSATE SODIUM 1 EACH TAB PO PRN (17:36)
--- NOTE | 2021-10-17 17:47 | P.PN ---
Subjective Progress Note Date: 10/17/21 Patient is a 75-year-old female with a known history of asthma, history of CVA/TIA with no residual weakness, diabetes type 2, hypertension, hyperlipidemia, rheumatoid arthritis on prednisone daily presents to ER with complaints of shortness of breath started around 4 AM this morning. Patient felt like chest congestion and denied any chest pain. Patient states that she is having mild cough and congestion for the past couple of days. Denied any worsening leg swelling than usual. Patient was having worsening symptoms and called EMS. Denied any fever or chills. No nausea vomiting or abdominal pain or diarrhea. No headache or dizziness or diaphoresis. He states that she is fully vaccinated for code 19 infection. Denied any loss of taste or smell sensation. Laboratory data on admission showed WBC 7.3 hemoglobin 8.6 and platelets 204 BUN 29 and creatinine 1.36 Magnesium 1.3 troponin 0.057 and 4.360 ProBNP 2540 and covid-19 PCR not detected. Chest x-ray showed a vague reticular nodular density throughout the right lung may reflect developing infiltrate. Correlate clinically. This is Dr. Shelby dictating I am assuming care of this patient is still [facility] were covering for me up to this point On 10/14/2021 patient was seen and examined on the telemetry floor she is alert and oriented 3 in no apparent distress there is no fever or chills no headache or dizziness no chest pain no shortness of breath she has occasional cough with minimal sputum production there is no nausea or vomiting no abdominal pain no diarrhea no blood in the stools no burning with urination no frequency or urgency and no hematuria. Patient had blood culture initially reported this morning as positive for gram-positive cocci, she was started on IV vancomycin, infectious disease consultation was requested, however subsequently, culture was reported as coag-negative gram-positive cocci possible contamination, IV vancomycin was discontinued. On 10/15/2021 patient was seen and examined on the telemetry floor she is alert and oriented 3 in no apparent distress she is complaining of cough and occasional wheezing otherwise she denies any complaints there is no fever or chills no headache or dizziness no chest pain no shortness of breath, there is no nausea or vomiting no abdominal pain no diarrhea no blood in the stools no burning with urination no frequency or urgency and no hematuria. At this time will continue with IV antibiotics and recheck chest x-ray in a.m. On 10/16/2021 patient alert and oriented 3. Patient currently maintained on IV antibiotics, IV steroids, IV Lasix and heparin drip. Patient reports some improvement. Patient stopping significant wheezing. Chest x-ray ordered. Patient denies chest pain. Patient denies nausea vomiting or diarrhea. Patient denies any urinary burning or frequency On 10/17/2021 patient was seen and examined in the ICU she is alert and oriented 3 in no apparent distress, currently this morning patient had sharp abdominal pain, A team were called. Computed tomography scan of the abdomen was done and revealed evidence of abdominal wall hematoma she was transferred to intensive care unit she had evidence of anemia she received 2 units of red blood cell transfusion IV heparin was discontinued. she is complaining of cough and occasional wheezing otherwise she denies any complaints there is no fever or chills no headache or dizziness no chest pain no shortness of breath, there is no nausea or vomiting no abdominal pain no diarrhea no blood in the stools no burning with urination no frequency or urgency and no hematuria. At this time will continue with IV antibiotics and recheck chest x-ray in a.m. Objective - Vital Signs Vital signs: Vital Signs Temp 97.5 F L 10/17/21 08:30 Pulse 89 10/17/21 12:00 Resp 22 10/17/21 12:00 BP 138/63 10/17/21 12:00 Pulse Ox 100 10/17/21 12:00 Intake & Output 10/16/21 10/17/21 10/17/21 18:59 06:59 18:59 Intake Total 478 700 120 Output Total 450 440 35 Balance 28 260 85 Weight 126.1 kg Intake: IV 80 120 .9 80 120 Oral 478 Blood Product 620 As-1 Unit 310 [id number] As-1 Unit 310 [id number] Output: Urine 450 440 35 Other: Voiding Method Bedside Commode Indwelling Catheter Indwelling Catheter Diaper # Voids 1 - Exam In general patient is alert and oriented x 3 in no distress HEENT head normocephalic and atraumatic Neck is supple no JVD no goiter no lymphadenopathy no carotid bruit Chest examination reveals scattered crackles bilaterally with wheezing Cardiac exam reveals regular heart sounds S1 and S2 no gallops no murmurs Abdomen is soft nontender no organomegaly with normal bowel sounds Extremity exam reveals no edema no cyanosis or clubbing Neurological examination reveals no gross focal deficits - Labs CBC & Chem 7: 10/17/21 16:22 10/17/21 04:27 Labs: Abnormal Lab Results - Last 24 Hours (Table) 10/16/21 10/16/21 10/16/21 Range/Units 06:43 16:21 20:05 WBC (3.8-10.6) k/uL RBC 2.85 L (3.80-5.40) m/uL Hgb 8.1 L (11.4-16.0) gm/dL Hct 24.9 L (34.0-46.0) % MCHC (31.0-37.0) g/dL Neutrophils # (1.3-7.7) k/uL Lymphocytes # 0.5 L (1.0-4.8) k/uL Sodium (137-145) mmol/L Carbon Dioxide (22-30) mmol/L BUN (7-17) mg/dL Creatinine (0.52-1.04) mg/dL Glucose (74-99) mg/dL POC Glucose (mg/dL) 115 H 214 H (75-99) mg/dL Plasma Lactic Acid Bryan (0.7-2.0) mmol/L Calcium (8.4-10.2) mg/dL Total Protein (6.3-8.2) g/dL Albumin (3.5-5.0) g/dL Crossmatch 10/16/21 10/17/21 10/17/21 Range/Units 22:50 00:52 01:08 WBC (3.8-10.6) k/uL RBC (3.80-5.40) m/uL Hgb (11.4-16.0) gm/dL Hct (34.0-46.0) % MCHC (31.0-37.0) g/dL Neutrophils # (1.3-7.7) k/uL Lymphocytes # (1.0-4.8) k/uL Sodium (137-145) mmol/L Carbon Dioxide (22-30) mmol/L BUN (7-17) mg/dL Creatinine (0.52-1.04) mg/dL Glucose (74-99) mg/dL POC Glucose (mg/dL) 303 H 339 H (75-99) mg/dL Plasma Lactic Acid Bryan (0.7-2.0) mmol/L Calcium (8.4-10.2) mg/dL Total Protein (6.3-8.2) g/dL Albumin (3.5-5.0) g/dL Crossmatch See Detail 10/17/21 10/17/21 10/17/21 Range/Units 01:08 01:08 04:27 WBC (3.8-10.6) k/uL RBC 2.08 L 2.22 L (3.80-5.40) m/uL Hgb 5.9 L* D 6.5 L* (11.4-16.0) gm/dL Hct 19.7 L* 20.6 L (34.0-46.0) % MCHC 30.1 L (31.0-37.0) g/dL Neutrophils # 8.1 H (1.3-7.7) k/uL Lymphocytes # 0.5 L 0.9 L (1.0-4.8) k/uL Sodium (137-145) mmol/L Carbon Dioxide (22-30) mmol/L BUN (7-17) mg/dL Creatinine (0.52-1.04) mg/dL Glucose (74-99) mg/dL POC Glucose (mg/dL) (75-99) mg/dL Plasma Lactic Acid Bryan 5.5 H* (0.7-2.0) mmol/L Calcium (8.4-10.2) mg/dL Total Protein (6.3-8.2) g/dL Albumin (3.5-5.0) g/dL Crossmatch 10/17/21 10/17/21 10/17/21 Range/Units 04:27 04:27 07:11 WBC (3.8-10.6) k/uL RBC (3.80-5.40) m/uL Hgb (11.4-16.0) gm/dL Hct (34.0-46.0) % MCHC (31.0-37.0) g/dL Neutrophils # (1.3-7.7) k/uL Lymphocytes # (1.0-4.8) k/uL Sodium 134 L (137-145) mmol/L Carbon Dioxide 18 L (22-30) mmol/L BUN 59 H (7-17) mg/dL Creatinine 2.21 H (0.52-1.04) mg/dL Glucose 321 H (74-99) mg/dL POC Glucose (mg/dL) 297 H (75-99) mg/dL Plasma Lactic Acid Bryan 6.3 H* (0.7-2.0) mmol/L Calcium 7.8 L (8.4-10.2) mg/dL Total Protein 5.9 L (6.3-8.2) g/dL Albumin 2.7 L (3.5-5.0) g/dL Crossmatch 10/17/21 10/17/21 10/17/21 Range/Units 09:11 09:11 11:22 WBC 13.6 H (3.8-10.6) k/uL RBC 3.20 L (3.80-5.40) m/uL Hgb 9.2 L D (11.4-16.0) gm/dL Hct 29.5 L (34.0-46.0) % MCHC (31.0-37.0) g/dL Neutrophils # 11.6 H (1.3-7.7) k/uL Lymphocytes # 0.9 L (1.0-4.8) k/uL Sodium (137-145) mmol/L Carbon Dioxide (22-30) mmol/L BUN (7-17) mg/dL Creatinine (0.52-1.04) mg/dL Glucose (74-99) mg/dL POC Glucose (mg/dL) 229 H (75-99) mg/dL Plasma Lactic Acid Bryan 5.2 H* (0.7-2.0) mmol/L Calcium (8.4-10.2) mg/dL Total Protein (6.3-8.2) g/dL Albumin (3.5-5.0) g/dL Crossmatch Microbiology - Last 24 Hours (Table) 10/13/21 09:58 Blood Culture - Preliminary Blood No Growth after 96 hours 10/14/21 07:49 Gram Stain - Final Sputum Sputum Culture - Final Assessment and Plan Plan: 1. Acute non-ST elevated [place] elevated troponin level. Patient started on IV heparin cardiology consultation requested 2. Acute CHF exacerbation, with elevated BNP, 2-D echo completed showing an EF of 55-60%. Patient maintained on IV Lasix 3. Acute asthma exacerbation, patient has known history of asthma, she had severe wheezing on presentation which is improving 4. Right lower lobe pneumonia, maintained on IV Rocephin and IV Zithromax, sputum culture ordered. 5. Acute kidney injury likely prerenal with creatinine level I.36 on admission. 6. hypomagnesemia 1.3 on admission , replaced. 7. Underlying history of Hypertension 8. Hyperlipidemia 9. Rheumatoid arthritis on prednisone 5 mg daily 10. Normocytic anemia/anemia of chronic disease 11. 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 12. Morbid obesity BMI 40.2 13. Positive blood culture. Infectious disease services are following likely contamination 14. Abdominal wall hematoma and anemia, IV heparin was discontinued patient transferred to intensive care unit and received 2 units of red blood cell transfusion Patient will be continued on telemetry monitoring. Serial troponin level. Patient will be started on heparin drip due to non-ST elevated FL. Patient will be continued on Plavix and Toprol and statins. Continue IV steroids Patient maintained on IV Lasix Continue IV antibiotics Cardiology, infectious disease and pulmonary service is consulted Repeat chest x-ray ordered for a.m.
[2021-10-17 18:02] LABS: Glucose,Whole Blood 170 mg/dL (75-99)
[2021-10-17] MEDS ORDERED: FUROSEMIDE 10 MG/ML 4 ML VIAL IV STA (18:16)
[2021-10-17] MEDS: amLODIPine 10 MG TAB PO SCH (18:18)
[2021-10-17] MEDS: lisinopriL 20 MG TAB PO SCH (18:18)
[2021-10-17 20:21] LABS: Calcium 7.8 mg/dL (8.4-10.2); Potassium 4.6 mmol/L (3.5-5.1)
[2021-10-17] MEDS: MONTELUKAST 10 MG TAB PO SCH (20:45)
[2021-10-17 20:52] LABS: Glucose,Whole Blood 195 mg/dL (75-99)
--- NOTE | 2021-10-18 01:04 | PN ---
PROGRESS NOTE DATE OF SERVICE: 10/17/2021 REASON FOR FOLLOWUP: 1. Positive blood culture. 2. Possible pneumonia. INTERVAL COURSE: The patient is afebrile. The patient will be transferred to the ICU as the patient developed abdominal pain with evidence of possible acute on chronic abdominal wound hematoma with drop in hemoglobin. The patient denies having any chest pain. Patient has been complaining of shortness of breath and wheezing. Did have a cough, not bringing any sputum and no diarrhea. PHYSICAL EXAMINATION: Blood pressure 140/69, pulse of 97, temperature 97.5. She is 99% on 2 L nasal cannula. General description is an elderly female lying in bed in no distress. Respiratory system: Unlabored breathing. Diminished breath sounds, occasional wheeze. Heart S1, S2. Regular rate and rhythm. Abdomen soft, mild tenderness. No guarding or rigidity. LABS: Hemoglobin 8.7, white count 13.2, creatinine is 2.94. Sputum has been negative. DIAGNOSTIC IMPRESSION AND PLAN: 1. Patient with positive blood culture, likely skin contaminant. Repeat is negative. Patient is currently off the vancomycin. 2. Patient with asthma exacerbation with tracheobronchitis and a question of possible pneumonia less likely. Antibiotic discontinued. The patient will be monitored closely off antibiotic therapy. Continue supportive care. MMODL / IJN: [id number] /
[2021-10-18] MEDS: IPRATROPIUM-ALBUTEROL 3 ML NEB INHALATION PRN (01:15)
[2021-10-18] MEDS ORDERED: SODIUM CHLORIDE 0.9% 1,000 ML IV ONE (02:51)
[2021-10-18 04:49] LABS: Albumin 2.8 g/dL (3.5-5.0); Calcium 7.5 mg/dL (8.4-10.2); Potassium 4.7 mmol/L (3.5-5.1); Total Bilirubin 0.2 mg/dL (0.2-1.3); Total Protein 5.8 g/dL (6.3-8.2)
[2021-10-18 05:38] LABS: HCT 23.8 % (34.0-46.0); HGB 7.7 gm/dL (11.4-16.0); Hypochromasia Moderate; MCHC 32.3 g/dL (31.0-37.0); MCV 92.7 fL (80.0-100.0); Mean Platelet Volume 9.8; Platelet Count 173 k/uL (150-450); RBC 2.57 m/uL (3.80-5.40); RDW 15.5 % (11.5-15.5)
[2021-10-18] MEDS: methylPREDNISolone SOD SUCCI 125 MG/2 ML VIAL IV SCH ×4 (06:34→23:46)
[2021-10-18] MEDS: LEVOTHYROXINE 25 MCG TAB PO SCH (06:35)
[2021-10-18] MEDS: SODIUM CHLORIDE 0.9% 1,000 ML in EMPTY BAG 1 BAG IV SCH (06:36)
[2021-10-18 06:42] LABS: Glucose,Whole Blood 185 mg/dL (75-99)
[2021-10-18 07:02] LABS: Anisocytosis (M) Present; Band Neutrophils % 3 %; Monocytes # (M) 0.31 k/uL (0-1.0); Neutrophils % (M) 87 %; Nucleated Red Blood Cells 2 /100 WBC (0-0); Total Cells Counted 200; WBC 15.5 k/uL (3.8-10.6)
[2021-10-18 07:03] LABS: Polychromasia Present
[2021-10-18] MEDS: INSULIN ASPART (NovoLOG) 100 UNIT/ML VIAL SQ SCH ×4 (07:14→21:32)
--- NOTE | 2021-10-18 07:32 | P.PN ---
Subjective Progress Note Date: 10/18/21 Principal diagnosis: Hypertension emergency The patient is a pleasant 75-year-old female patient with a past medical history significant for asthma and hypertension and dyslipidemia who was admitted to the hospital with hypertension emergency complicated by acute non-ST deviation myocardial infarction as well as heart failure. The patient wasn't started on anticoagulation and subsequently she developed abdominal wall hematoma and she was transferred to the intensive care unit. The patient was seen this morning. Hemodynamically she is stable and not on any vasopressors. Her hemoglobin this morning is a stable and above 7. Unfortunately her kidney function is worse. I'm going to consult nephrology to see the patient. The worse kidney function is likely related to hypotension when she bled in the abdominal wall and also could be related to severe anemia. Currently she is not on any nephrotoxic medications. She is not on any anticoagulation as well as. She has not been experiencing any chest pain or chest discomfort and her wheezing is a slightly better compared to before. Objective - Vital Signs Vital signs: Vital Signs Temp 98.8 F 10/18/21 00:00 Pulse 91 10/18/21 07:00 Resp 17 10/18/21 07:00 BP 135/74 10/18/21 07:00 Pulse Ox 100 10/18/21 07:00 Intake & Output 10/17/21 10/18/21 10/18/21 18:59 06:59 18:59 Intake Total 720 240 20 Output Total 50 45 20 Balance 670 195 0 Weight 126.1 kg 126.3 kg Intake: IV 220 240 20 .9 220 240 20 Intake, IV Titration 500 Amount Sodium Chloride 0.9% 500 500 ml 500 ml @ 999 mls/hr IV .Q31M ONE Rx#:[id number] Output: Urine 50 45 20 Other: Voiding Method Indwelling Catheter Indwelling Catheter # Voids 1 1 - Constitutional General appearance: Present: no acute distress - Respiratory Respiratory: bilateral: wheezing - Cardiovascular Rhythm: regular Heart sounds: normal: S1, S2 - Labs CBC & Chem 7: 10/18/21 03:58 10/18/21 03:58 Labs: Abnormal Lab Results - Last 24 Hours (Table) 10/17/21 10/17/21 10/17/21 Range/Units 09:11 09:11 11:22 WBC 13.6 H (3.8-10.6) k/uL RBC 3.20 L (3.80-5.40) m/uL Hgb 9.2 L D (11.4-16.0) gm/dL Hct 29.5 L (34.0-46.0) % Neutrophils # 11.6 H (1.3-7.7) k/uL Neutrophils # (Manual) (1.3-7.7) k/uL Lymphocytes # 0.9 L (1.0-4.8) k/uL Nucleated RBCs (0-0) /100 WBC Sodium (137-145) mmol/L Carbon Dioxide (22-30) mmol/L BUN (7-17) mg/dL Creatinine (0.52-1.04) mg/dL Glucose (74-99) mg/dL POC Glucose (mg/dL) 229 H (75-99) mg/dL Plasma Lactic Acid Bryan 5.2 H* (0.7-2.0) mmol/L Calcium (8.4-10.2) mg/dL Total Protein (6.3-8.2) g/dL Albumin (3.5-5.0) g/dL 10/17/21 10/17/21 10/17/21 Range/Units 15:45 16:22 18:01 WBC 13.2 H (3.8-10.6) k/uL RBC 2.86 L (3.80-5.40) m/uL Hgb 8.7 L (11.4-16.0) gm/dL Hct 26.4 L (34.0-46.0) % Neutrophils # 11.2 H (1.3-7.7) k/uL Neutrophils # (Manual) (1.3-7.7) k/uL Lymphocytes # (1.0-4.8) k/uL Nucleated RBCs (0-0) /100 WBC Sodium (137-145) mmol/L Carbon Dioxide (22-30) mmol/L BUN (7-17) mg/dL Creatinine (0.52-1.04) mg/dL Glucose (74-99) mg/dL POC Glucose (mg/dL) 170 H (75-99) mg/dL Plasma Lactic Acid Bryan 2.6 H* (0.7-2.0) mmol/L Calcium (8.4-10.2) mg/dL Total Protein (6.3-8.2) g/dL Albumin (3.5-5.0) g/dL 10/17/21 10/17/21 10/17/21 Range/Units 19:50 19:50 20:50 WBC (3.8-10.6) k/uL RBC (3.80-5.40) m/uL Hgb (11.4-16.0) gm/dL Hct (34.0-46.0) % Neutrophils # (1.3-7.7) k/uL Neutrophils # (Manual) (1.3-7.7) k/uL Lymphocytes # (1.0-4.8) k/uL Nucleated RBCs (0-0) /100 WBC Sodium 135 L (137-145) mmol/L Carbon Dioxide 19 L (22-30) mmol/L BUN 75 H (7-17) mg/dL Creatinine 2.94 H (0.52-1.04) mg/dL Glucose 220 H (74-99) mg/dL POC Glucose (mg/dL) 195 H (75-99) mg/dL Plasma Lactic Acid Bryan 3.0 H* (0.7-2.0) mmol/L Calcium 7.8 L (8.4-10.2) mg/dL Total Protein (6.3-8.2) g/dL Albumin (3.5-5.0) g/dL 10/17/21 10/18/21 10/18/21 Range/Units 23:39 03:58 03:58 WBC 15.5 H (3.8-10.6) k/uL RBC 2.57 L (3.80-5.40) m/uL Hgb 7.7 L (11.4-16.0) gm/dL Hct 23.8 L (34.0-46.0) % Neutrophils # (1.3-7.7) k/uL Neutrophils # (Manual) 13.90 H (1.3-7.7) k/uL Lymphocytes # (1.0-4.8) k/uL Nucleated RBCs 2 H (0-0) /100 WBC Sodium 135 L (137-145) mmol/L Carbon Dioxide 17 L (22-30) mmol/L BUN 80 H (7-17) mg/dL Creatinine 3.56 H (0.52-1.04) mg/dL Glucose 214 H (74-99) mg/dL POC Glucose (mg/dL) (75-99) mg/dL Plasma Lactic Acid Bryan 6.7 H* (0.7-2.0) mmol/L Calcium 7.5 L (8.4-10.2) mg/dL Total Protein 5.8 L (6.3-8.2) g/dL Albumin 2.8 L (3.5-5.0) g/dL 10/18/21 10/18/21 Range/Units 03:58 06:40 WBC (3.8-10.6) k/uL RBC (3.80-5.40) m/uL Hgb (11.4-16.0) gm/dL Hct (34.0-46.0) % Neutrophils # (1.3-7.7) k/uL Neutrophils # (Manual) (1.3-7.7) k/uL Lymphocytes # (1.0-4.8) k/uL Nucleated RBCs (0-0) /100 WBC Sodium (137-145) mmol/L Carbon Dioxide (22-30) mmol/L BUN (7-17) mg/dL Creatinine (0.52-1.04) mg/dL Glucose (74-99) mg/dL POC Glucose (mg/dL) 185 H (75-99) mg/dL Plasma Lactic Acid Bryan 2.6 H* (0.7-2.0) mmol/L Calcium (8.4-10.2) mg/dL Total Protein (6.3-8.2) g/dL Albumin (3.5-5.0) g/dL Microbiology - Last 24 Hours (Table) 10/13/21 09:58 Blood Culture - Preliminary Blood No Growth after 96 hours Assessment and Plan Assessment: Assessment #1 hypertension emergency #2 evidence of myocardial injury likely secondary to hypertension emergency. Severe/obstructive CAD to be ruled out #3 heart failure exacerbation secondary to heart failure with preserved ejection fraction #3 acute renal failure #4 bilateral expiratory wheezing could be related to cardiac asthma #5 history of TIA/CVA #6 abdominal wall hematoma #7 blood loss anemia #8 multiple comorbid conditions Plan #1 continue the current medical regimen #2 intensive care team on the case. I am going to consult nephrology team regarding the worsening kidney function #3 continue monitoring the kidney function and electrolytes as well as a hemoglobin #4 follow-up with the patient
[2021-10-18] MEDS ORDERED: FUROSEMIDE 10 MG/ML 10 ML VIAL IV STA (08:47)
[2021-10-18] MEDS ORDERED: SODIUM CHLORIDE 0.9% 1,000 ML IV SCH (09:00)
--- NOTE | 2021-10-18 09:33 | P.NPCON ---
History of Present Illness - Reason for Consult acute renal failure - History of Present Illness Reason for consultation: Acute kidney injury History of present illness: Patient is a 75-year-old female seen in renal consultation for acute kidney injury. Patient's creatinine on admission was 1.36 on 10/13/2021. Renal function has been progressively worsening with creatinine up to 3.56 today. Patient presented to the hospital for shortness of breath and wheezing. She does have history of COPD. She tested negative for coronavirus. Patient's hemoglobin was low at 5.9 on 10/17/2021 and she did receive 2 units of blood. Hemoglobin today 7.7. She underwent CAT scan of the abdomen and pelvis which revealed no evidence of hydronephrosis. She was noted to have a complex abdominal mass and was concerning for hematoma. Surgery is following. She is also having hematuria for which urology has been consulted. She does have long- standing history of diabetes. She is maintained on lisinopril. Blood pressures controlled. No vomiting or diarrhea. Currently on 4 L nasal cannula. Vital signs are stable. General: The patient appeared well nourished and normally developed. HEENT: Head exam is unremarkable. LUNGS: Breath sounds decreased. HEART: Rate and Rhythm are regular. ABDOMEN: Soft, no distention. EXTREMITITES: No edema. Past Medical History Past Medical History: Asthma, CVA/TIA, Diabetes Mellitus, Hyperlipidemia, Hypertension, Rheumatoid Arthritis (RA) Additional Past Medical History / Comment(s): TIA in 2016 History of Any Multi-Drug Resistant Organisms: None Reported Past Surgical History: Appendectomy, Tubal Ligation Additional Past Surgical History / Comment(s): Colonoscopy, cataracts surg Past Anesthesia/Blood Transfusion Reactions: No Reported Reaction Past Psychological History: No Psychological Hx Reported Smoking Status: Never smoker Past Alcohol Use History: None Reported Past Drug Use History: None Reported - Past Family History Father Family Medical History: Cancer, Congestive Heart Failure (CHF) Additional Family Medical History / Comment(s): colon cancer Mother Family Medical History: Rheumatoid Arthritis (RA) Medications and Allergies Home Medications Medication Instructions Recorded Confirmed Type Clopidogrel [Plavix] 75 mg PO DAILY 05/14/19 10/13/21 History Metoprolol Succinate (ER) [Toprol 25 mg PO DAILY 05/14/19 10/13/21 History XL] lisinopriL 40 mg PO DAILY 05/14/19 10/13/21 History Montelukast [Singulair] 10 mg PO HS #30 tab 05/24/19 10/13/21 Rx Albuterol Inhaler [Ventolin Hfa 1 - 2 puff INHALATION RT-QID PRN 06/14/20 10/13/21 History Inhaler] Tolterodine ER [Detrol LA] 4 mg PO DAILY 06/14/20 10/13/21 History Ferrous Sulfate [Iron (65 MG 325 mg PO DAILY 02/16/21 10/13/21 History Elemental)] Acetaminophen Tab [Tylenol Tab] 1,000 mg PO Q6HR PRN 10/13/21 10/13/21 History Cholecalciferol [Vitamin D3 (25 50 mcg PO DAILY 10/13/21 10/13/21 History Mcg = 1000 Iu)] Ezetimibe [Zetia] 10 mg PO DAILY 10/13/21 10/13/21 History Levothyroxine Sodium [Synthroid] 25 mcg PO DAILY 10/13/21 10/13/21 History glipiZIDE [Glucotrol] 5 mg PO TID 10/13/21 10/13/21 History guaiFENesin [Diabetic Tussin] 200 mg PO Q6H PRN 10/13/21 10/13/21 History predniSONE 5 mg PO DAILY 10/13/21 10/13/21 History prednisoLONE ACETATE 1% OPHTH 1 drops BOTH EYES QID 10/13/21 10/13/21 History [Pred Forte 1%] Allergies Allergy/AdvReac Type Severity Reaction Status Date / Time atorvastatin [From Lipitor] AdvReac CRAMPS Verified 10/13/21 10:53 latex AdvReac Itching Verified 10/13/21 10:53 Physical Exam Vitals: Vital Signs Temp Pulse Resp BP Pulse Ox 10/18/21 07:00 91 17 135/74 100 10/18/21 06:30 89 19 142/66 98 10/18/21 06:00 98 18 154/57 93 L 10/18/21 05:30 99 16 158/73 100 10/18/21 05:00 95 17 148/70 100 10/18/21 04:30 98 16 153/70 100 10/18/21 04:00 97 17 166/70 100 10/18/21 03:30 101 H 15 153/67 10/18/21 03:00 99 16 131/97 100 10/18/21 02:30 105 H 12 142/67 10/18/21 02:00 100 18 125/85 96 10/18/21 01:30 98 18 128/77 10/18/21 01:22 93 10/18/21 01:16 93 10/18/21 01:00 95 20 131/93 92 L 10/18/21 00:54 96 21 131/93 10/18/21 00:30 99 20 134/81 10/18/21 00:00 98.8 F 96 21 149/104 99 10/17/21 23:30 105 H 24 125/81 97 10/17/21 23:00 125 H 34 H 121/97 97 10/17/21 22:30 102 H 21 124/71 97 10/17/21 22:00 101 H 20 139/59 99 10/17/21 21:30 99 21 124/72 99 10/17/21 21:00 97 21 140/69 99 10/17/21 20:30 98 18 136/90 99 10/17/21 20:00 97.5 F L 99 21 164/74 100 10/17/21 19:30 101 H 19 165/66 99 10/17/21 19:00 125 H 33 H 144/64 99 10/17/21 18:30 102 H 15 158/64 95 10/17/21 18:00 95 21 138/90 99 10/17/21 17:30 93 19 161/76 100 10/17/21 17:00 93 20 145/70 100 10/17/21 16:30 94 20 129/66 100 10/17/21 16:00 98.6 F 97 20 122/83 99 10/17/21 15:30 95 22 149/55 100 10/17/21 15:00 94 21 138/66 100 10/17/21 14:30 92 20 129/63 100 10/17/21 14:00 93 18 144/74 100 10/17/21 13:30 87 17 144/73 100 10/17/21 13:00 89 20 127/70 100 10/17/21 12:30 86 18 144/70 100 10/17/21 12:00 89 22 138/63 100 10/17/21 11:30 95 21 119/60 100 10/17/21 11:00 93 21 136/71 100 10/17/21 10:30 93 18 128/68 98 10/17/21 10:00 92 23 132/66 100 10/17/21 09:30 92 20 134/66 98 Intake and Output 10/17/21 10/18/21 10/18/21 22:59 06:59 14:59 Intake Total 160 160 20 Output Total 10 40 20 Balance 150 120 0 Intake: IV 160 160 20 .9 160 160 20 Output: Urine 10 40 20 Other: Voiding Method Indwelling Catheter Indwelling Catheter # Voids 1 Weight 126.1 kg 126.3 kg Results - Lab Results Most recent lab results Calcium 7.5 mg/dL (8.4-10.2) L 10/18/21 03:58 Magnesium 1.7 mg/dL (1.6-2.3) 10/17/21 01:08 10/18/21 03:58 10/18/21 03:58 Assessment and Plan Plan: Assessment: 1. Acute kidney injury secondary to ATN secondary to acute blood loss anemia. Creatinine 1.36 on admission and is up to 3.56 today. Oliguric. 2. Abdominal wall hematoma status post blood transfusions. Surgery following. 3. Metabolic acidosis secondary to acute kidney injury and lactic acidosis. 4. Diabetes mellitus. 5. Benign hypertension. 6. Chronic diastolic CHF with moderate tricuspid regurgitation and pulmonary hypertension. Plan: Start normal saline at 50 mL an hour. Lasix 80 mg IV once today. Stop lisinopril. Check UA. Urology recommendations pending. Avoid nephrotoxins. Add bicarbonate. If no improvement in renal function and urine output in the next 24 hours, will initiate renal replacement therapy. Patient agreeable. Thank you for the consultation. I will continue to follow the patient with you during her hospital stay.
[2021-10-18] MEDS: PANTOPRAZOLE 40 MG/10 ML VIAL IVP SCH (09:59)
[2021-10-18] MEDS: amLODIPine 10 MG TAB PO SCH (10:00)
[2021-10-18] MEDS: glipiZIDE 5 MG TAB PO SCH ×3 (10:01→21:32)
[2021-10-18] MEDS: DOCUSATE 100 MG CAP PO SCH ×2 (10:01→21:32)
[2021-10-18] MEDS: EZETIMIBE 10 MG TAB PO SCH (10:01)
[2021-10-18] MEDS: OXYBUTYNIN 10 MG TAB.ER.24 PO SCH (10:02)
[2021-10-18] MEDS: prednisoLONE ACETATE 1% OPHTH DROPS 5 ML BTL BOTH EYES SCH ×4 (10:04→21:33)
[2021-10-18] MEDS: SODIUM BICARBONATE TAB 650 MG TAB PO SCH ×2 (10:07→21:32)
--- NOTE | 2021-10-18 10:17 | P.PN ---
<Jasmina Ruano - Last Filed: 10/18/21 10:07> Subjective Progress Note Date: 10/18/21 CHIEF COMPLAINT: Abdominal wall hematoma HISTORY OF PRESENT ILLNESS: The patient is a 75 year old female who initially presented to the hospital on 10/13/2021 with chest pain and difficulty breathing. She was diagnosed with chest with heart failure with exacerbation and admitted. Additional cardiology workup demonstrated elevated and rising troponins from 0.0572 8.02. Ehocardiogram with ejection fraction 55-60% as well as severe pulmonary hypertension. She was started on heparin drip since 12/15/2020. Her hemoglobin on admission was anemic at 8.6. She also has history of chronic renal insufficiency with creatinine elevated at 1.36. She had an acute cardiopulmonary event with change in mental status, hypotension and tachycardia arrhythmia. Emergent computed tomography scan was obtained demonstrating new acute abdominal wall hematoma. The patient remains in the ICU under close observation. She states no increased abdominal pain. Pain has improved since initial onset. She denies any nausea or vomiting. She has been nothing by mouth. She is status post 2 units PRBC transfusion. Warning labs show WBC 15.5 hemoglobin 7.7 platelet count 173,000 sodium 135 potassium 4.7 BUN 80 creatinine 3.56 glucose 214. Plasma lactic acid 2.6. Patient has had decreased urine output and increase in BUN and creatinine, nephrology has been consulted. Urology is on consult patient is now having hematuria. PHYSICAL EXAM: VITAL SIGNS: Reviewed GENERAL: Well-developed in no acute distress. HEENT: No sclera icterus. Extraocular movements grossly intact. Moist buccal mucosa. Head is atraumatic, normocephalic. Hears conversational speech. No nasal drainage. NECK: Supple without lymphadenopathy. CHEST: Non-labored respirations and equal bilateral excursions. CARDIOVASCULAR: Palpable 2+ radial pulses. ABDOMEN: Soft. Nondistended. Mild tenderness to the right mid abdomen, with palpable mass. No diffuse peritonitis. No ecchymosis along the abdomen. Abdominal binder in place. MUSCULOSKELETAL: No clubbing or cyanosis. NEUROLOGIC: No focal or lateralizing signs. Cranial nerves II through XII grossly intact. PSYCH: Appropriate affect. Alert and oriented to person, place and time. SKIN: Well perfused. Good skin turgor. ASSESSMENT: 1. Abnormal computed computed tomography scan for large abdominal wall hematoma 2. Acute blood loss anemia due to heparin and abdominal wall hematoma 3. Acute exacerbation of congestive heart failure 4. Acute kidney injury 5. Hematuria 6. Leukocytosis PLAN: 1. Continue symptomatic and supportive care in the ICU 2. Repeat daily CBC 3. Hold anticoagulation and antiplatelet therapy 4. Continue with use of abdominal binder for compression 5. Continue bedrest 6. At this time no plans on surgical intervention as patient is high surgical risk for acute deep compression blood loss of acute abdominal wall hematoma. Continue with conservative management 7. Urology consulted, appreciate their recommendations 8. Nephrology on consult The impression and plan of care has been dictated as directed. Dr. Patrick I performed a history and examination of this patient, discussed the same with the dictator. I agree with the dictator's note ,documented as a scribe. Any additional findings or plans will be noted. Objective - Vital Signs Vital signs: Vital Signs Temp 98.8 F 10/18/21 00:00 Pulse 91 10/18/21 07:00 Resp 17 10/18/21 07:00 BP 135/74 10/18/21 07:00 Pulse Ox 100 10/18/21 07:00 Intake & Output 10/17/21 10/18/21 10/18/21 18:59 06:59 18:59 Intake Total 720 240 20 Output Total 50 45 20 Balance 670 195 0 Weight 126.1 kg 126.3 kg Intake: IV 220 240 20 .9 220 240 20 Intake, IV Titration 500 Amount Sodium Chloride 0.9% 500 500 ml 500 ml @ 999 mls/hr IV .Q31M [facility] Rx#:[id number] Output: Urine 50 45 20 Other: Voiding Method Indwelling Catheter Indwelling Catheter # Voids 1 1 - Labs CBC & Chem 7: 10/18/21 03:58 10/18/21 03:58 Labs: Abnormal Lab Results - Last 24 Hours (Table) 10/17/21 10/17/21 10/17/21 Range/Units 09:11 09:11 11:22 WBC 13.6 H (3.8-10.6) k/uL RBC 3.20 L (3.80-5.40) m/uL Hgb 9.2 L D (11.4-16.0) gm/dL Hct 29.5 L (34.0-46.0) % Neutrophils # 11.6 H (1.3-7.7) k/uL Neutrophils # (Manual) (1.3-7.7) k/uL Lymphocytes # 0.9 L (1.0-4.8) k/uL Nucleated RBCs (0-0) /100 WBC Sodium (137-145) mmol/L Carbon Dioxide (22-30) mmol/L BUN (7-17) mg/dL Creatinine (0.52-1.04) mg/dL Glucose (74-99) mg/dL POC Glucose (mg/dL) 229 H (75-99) mg/dL Plasma Lactic Acid Bryan 5.2 H* (0.7-2.0) mmol/L Calcium (8.4-10.2) mg/dL Total Protein (6.3-8.2) g/dL Albumin (3.5-5.0) g/dL 10/17/21 10/17/21 10/17/21 Range/Units 15:45 16:22 18:01 WBC 13.2 H (3.8-10.6) k/uL RBC 2.86 L (3.80-5.40) m/uL Hgb 8.7 L (11.4-16.0) gm/dL Hct 26.4 L (34.0-46.0) % Neutrophils # 11.2 H (1.3-7.7) k/uL Neutrophils # (Manual) (1.3-7.7) k/uL Lymphocytes # (1.0-4.8) k/uL Nucleated RBCs (0-0) /100 WBC Sodium (137-145) mmol/L Carbon Dioxide (22-30) mmol/L BUN (7-17) mg/dL Creatinine (0.52-1.04) mg/dL Glucose (74-99) mg/dL POC Glucose (mg/dL) 170 H (75-99) mg/dL Plasma Lactic Acid Bryan 2.6 H* (0.7-2.0) mmol/L Calcium (8.4-10.2) mg/dL Total Protein (6.3-8.2) g/dL Albumin (3.5-5.0) g/dL 10/17/21 10/17/21 10/17/21 Range/Units 19:50 19:50 20:50 WBC (3.8-10.6) k/uL RBC (3.80-5.40) m/uL Hgb (11.4-16.0) gm/dL Hct (34.0-46.0) % Neutrophils # (1.3-7.7) k/uL Neutrophils # (Manual) (1.3-7.7) k/uL Lymphocytes # (1.0-4.8) k/uL Nucleated RBCs (0-0) /100 WBC Sodium 135 L (137-145) mmol/L Carbon Dioxide 19 L (22-30) mmol/L BUN 75 H (7-17) mg/dL Creatinine 2.94 H (0.52-1.04) mg/dL Glucose 220 H (74-99) mg/dL POC Glucose (mg/dL) 195 H (75-99) mg/dL Plasma Lactic Acid Bryan 3.0 H* (0.7-2.0) mmol/L Calcium 7.8 L (8.4-10.2) mg/dL Total Protein (6.3-8.2) g/dL Albumin (3.5-5.0) g/dL 10/17/21 10/18/21 10/18/21 Range/Units 23:39 03:58 03:58 WBC 15.5 H (3.8-10.6) k/uL RBC 2.57 L (3.80-5.40) m/uL Hgb 7.7 L (11.4-16.0) gm/dL Hct 23.8 L (34.0-46.0) % Neutrophils # (1.3-7.7) k/uL Neutrophils # (Manual) 13.90 H (1.3-7.7) k/uL Lymphocytes # (1.0-4.8) k/uL Nucleated RBCs 2 H (0-0) /100 WBC Sodium 135 L (137-145) mmol/L Carbon Dioxide 17 L (22-30) mmol/L BUN 80 H (7-17) mg/dL Creatinine 3.56 H (0.52-1.04) mg/dL Glucose 214 H (74-99) mg/dL POC Glucose (mg/dL) (75-99) mg/dL Plasma Lactic Acid Bryan 6.7 H* (0.7-2.0) mmol/L Calcium 7.5 L (8.4-10.2) mg/dL Total Protein 5.8 L (6.3-8.2) g/dL Albumin 2.8 L (3.5-5.0) g/dL 10/18/21 10/18/21 Range/Units 03:58 06:40 WBC (3.8-10.6) k/uL RBC (3.80-5.40) m/uL Hgb (11.4-16.0) gm/dL Hct (34.0-46.0) % Neutrophils # (1.3-7.7) k/uL Neutrophils # (Manual) (1.3-7.7) k/uL Lymphocytes # (1.0-4.8) k/uL Nucleated RBCs (0-0) /100 WBC Sodium (137-145) mmol/L Carbon Dioxide (22-30) mmol/L BUN (7-17) mg/dL Creatinine (0.52-1.04) mg/dL Glucose (74-99) mg/dL POC Glucose (mg/dL) 185 H (75-99) mg/dL Plasma Lactic Acid Bryan 2.6 H* (0.7-2.0) mmol/L Calcium (8.4-10.2) mg/dL Total Protein (6.3-8.2) g/dL Albumin (3.5-5.0) g/dL Microbiology - Last 24 Hours (Table) 10/13/21 09:58 Blood Culture - Preliminary Blood No Growth after 96 hours Assessment and Plan (1) Abdominal wall hematoma Current Visit: Yes Status: Acute Code(s): S30.1XXA - CONTUSION OF ABDOMINAL WALL, INITIAL ENCOUNTER SNOMED Code(s): 259539404 (2) Acute blood loss anemia Current Visit: Yes Status: Acute Code(s): D62 - ACUTE POSTHEMORRHAGIC ANEMIA SNOMED Code(s): 870432783 (3) Hypotension due to blood loss Current Visit: Yes Status: Acute Code(s): I95.89 - OTHER HYPOTENSION; R58 - HEMORRHAGE, NOT ELSEWHERE CLASSIFIED SNOMED Code(s): 82089371 (4) Acute exacerbation of congestive heart failure Current Visit: Yes Status: Acute Code(s): I50.9 - HEART FAILURE, UNSPECIFIED SNOMED Code(s): 539398391 (5) Diabetes type 2, uncontrolled Current Visit: Yes Status: Acute Code(s): E11.65 - TYPE 2 DIABETES MELLITUS WITH HYPERGLYCEMIA SNOMED Code(s): 364835704 <Janet Patrick N - Last Filed: 10/18/21 22:37> Subjective CHIEF COMPLAINT: Acute abdominal wall hematoma HISTORY OF PRESENT ILLNESS: The patient is a 75-year-old female with a large abdominal wall hematoma who developed hematuria. She reports abdominal tenderness however somewhat improved. She has an abdominal binder. ROS: No reports of nausea and vomiting. No bowel movements. No fevers or chills. No new chest pain. No productive sputum PHYSICAL EXAM: VITAL SIGNS: Reviewed CONSTITUTIONAL: Well developed and in no acute distress. EYES: Conjuctivae without sclera icterus. Extraocular movements grossly intact. HEAD, EARS, NOSE, THROAT: Moist buccal mucosa. Head is atraumatic, normocephali c. Hears conversational speech. No nasal drainage. NECK: No gross thyroidomegaly. No jugular venous distention. RESPIRATORY: Non-labored respirations and equal bilateral excursions. CARDIOVASCULAR: Palpable 2+ radial pulses. ABDOMEN: Abdominal wall mass along the midline consistent with hematoma. No peritonitis. MUSCULOSKELETAL: No gross deformity of the lower extremities noted. No clubbi ng. No cyanosis. SKIN: Good skin turgor. Well perfused. NEUROLOGIC: Cranial nerves II through XII grossly intact. No focal or lateralizing signs. PSYCH: Appropriate affect. Alert and oriented to person, place and time. CLINICAL LABS: White blood cell count elevated 15.5. Hemoglobin 7.7. Cr eatinine elevating. Blood transfusion 2 units packed red blood cells. ASSESSMENT: 1. Acute blood loss anemia due to abdominal wall hematoma PLAN: 1. Monitor hemoglobin. 2. Management of hematuria per urology Objective - Vital Signs Vital signs: Vital Signs Temp 98.1 F 10/18/21 21:33 Pulse 93 10/18/21 21:20 Resp 20 10/18/21 19:55 BP 154/67 10/18/21 19:50 Pulse Ox 99 10/18/21 19:55 Intake & Output 10/18/21 10/18/21 10/19/21 06:59 18:59 06:59 Intake Total 240 210 Output Total 45 79 Balance 195 131 Weight 126.3 kg Intake: IV 240 210 .9 240 110 Sodium Chloride 0.9% 1, 100 000 ml @ 50 mls/hr IV . [facility] Rx#:[id number] Output: Urine 45 79 Other: Voiding Method Indwelling Catheter Indwelling Catheter # Voids 1 - Labs CBC & Chem 7: 10/18/21 03:58 10/18/21 16:19 Labs: Abnormal Lab Results - Last 24 Hours (Table) 10/17/21 10/18/21 10/18/21 Range/Units 23:39 03:58 03:58 WBC 15.5 H (3.8-10.6) k/uL RBC 2.57 L (3.80-5.40) m/uL Hgb 7.7 L (11.4-16.0) gm/dL Hct 23.8 L (34.0-46.0) % Neutrophils # (Manual) 13.90 H (1.3-7.7) k/uL Nucleated RBCs 2 H (0-0) /100 WBC Sodium 135 L (137-145) mmol/L Carbon Dioxide 17 L (22-30) mmol/L BUN 80 H (7-17) mg/dL Creatinine 3.56 H (0.52-1.04) mg/dL Glucose 214 H (74-99) mg/dL POC Glucose (mg/dL) (75-99) mg/dL Plasma Lactic Acid Bryan 6.7 H* (0.7-2.0) mmol/L Calcium 7.5 L (8.4-10.2) mg/dL Total Protein 5.8 L (6.3-8.2) g/dL Albumin 2.8 L (3.5-5.0) g/dL Urine Appearance (Clear) Urine Protein (Negative) Urine Blood (Negative) Ur Leukocyte Esterase (Negative) Urine RBC (0-5) /hpf Urine WBC (0-5) /hpf Urine WBC Clumps (None) /hpf Ur Squamous Epith Cells (0-4) /hpf Hyaline Casts (0-2) /lpf Urine Mucus (None) /hpf 10/18/21 10/18/21 10/18/21 Range/Units 03:58 06:40 12:53 WBC (3.8-10.6) k/uL RBC (3.80-5.40) m/uL Hgb (11.4-16.0) gm/dL Hct (34.0-46.0) % Neutrophils # (Manual) (1.3-7.7) k/uL Nucleated RBCs (0-0) /100 WBC Sodium (137-145) mmol/L Carbon Dioxide (22-30) mmol/L BUN (7-17) mg/dL Creatinine (0.52-1.04) mg/dL Glucose (74-99) mg/dL POC Glucose (mg/dL) 185 H 217 H (75-99) mg/dL Plasma Lactic Acid Bryan 2.6 H* (0.7-2.0) mmol/L Calcium (8.4-10.2) mg/dL Total Protein (6.3-8.2) g/dL Albumin (3.5-5.0) g/dL Urine Appearance (Clear) Urine Protein (Negative) Urine Blood (Negative) Ur Leukocyte Esterase (Negative) Urine RBC (0-5) /hpf Urine WBC (0-5) /hpf Urine WBC Clumps (None) /hpf Ur Squamous Epith Cells (0-4) /hpf Hyaline Casts (0-2) /lpf Urine Mucus (None) /hpf 10/18/21 10/18/21 10/18/21 Range/Units 14:00 16:19 16:28 WBC (3.8-10.6) k/uL RBC (3.80-5.40) m/uL Hgb (11.4-16.0) gm/dL Hct (34.0-46.0) % Neutrophils # (Manual) (1.3-7.7) k/uL Nucleated RBCs (0-0) /100 WBC Sodium 134 L (137-145) mmol/L Carbon Dioxide 16 L (22-30) mmol/L BUN 89 H (7-17) mg/dL Creatinine 4.06 H (0.52-1.04) mg/dL Glucose 231 H (74-99) mg/dL POC Glucose (mg/dL) 251 H (75-99) mg/dL Plasma Lactic Acid Bryan (0.7-2.0) mmol/L Calcium 7.5 L (8.4-10.2) mg/dL Total Protein (6.3-8.2) g/dL Albumin (3.5-5.0) g/dL Urine Appearance Turbid H (Clear) Urine Protein 2+ H (Negative) Urine Blood Large H (Negative) Ur Leukocyte Esterase Moderate H (Negative) Urine RBC >182 H (0-5) /hpf Urine WBC >182 H (0-5) /hpf Urine WBC Clumps Many H (None) /hpf Ur Squamous Epith Cells 6 H (0-4) /hpf Hyaline Casts 16 H (0-2) /lpf Urine Mucus Rare H (None) /hpf 10/18/21 10/18/21 Range/Units 20:53 20:53 WBC (3.8-10.6) k/uL RBC (3.80-5.40) m/uL Hgb (11.4-16.0) gm/dL Hct (34.0-46.0) % Neutrophils # (Manual) (1.3-7.7) k/uL Nucleated RBCs (0-0) /100 WBC Sodium (137-145) mmol/L Carbon Dioxide (22-30) mmol/L BUN (7-17) mg/dL Creatinine (0.52-1.04) mg/dL Glucose (74-99) mg/dL POC Glucose (mg/dL) 228 H 228 H (75-99) mg/dL Plasma Lactic Acid Bryan (0.7-2.0) mmol/L Calcium (8.4-10.2) mg/dL Total Protein (6.3-8.2) g/dL Albumin (3.5-5.0) g/dL Urine Appearance (Clear) Urine Protein (Negative) Urine Blood (Negative) Ur Leukocyte Esterase (Negative) Urine RBC (0-5) /hpf Urine WBC (0-5) /hpf Urine WBC Clumps (None) /hpf Ur Squamous Epith Cells (0-4) /hpf Hyaline Casts (0-2) /lpf Urine Mucus (None) /hpf Microbiology - Last 24 Hours (Table) 10/13/21 09:58 Blood Culture - Preliminary Blood No Growth after 120 hours Assessment and Plan (1) Acute exacerbation of congestive heart failure Current Visit: Yes Status: Acute Code(s): I50.9 - HEART FAILURE, UNSPECIFIED SNOMED Code(s): 274750234 (2) Acute blood loss anemia Current Visit: Yes Status: Acute Code(s): D62 - ACUTE POSTHEMORRHAGIC ANEMIA SNOMED Code(s): 934354454 (3) Hypotension due to blood loss Current Visit: Yes Status: Acute Code(s): I95.89 - OTHER HYPOTENSION; R58 - HEMORRHAGE, NOT ELSEWHERE CLASSIFIED SNOMED Code(s): 14146955 (4) Abdominal wall hematoma Current Visit: Yes Status: Acute Code(s): S30.1XXA - CONTUSION OF ABDOMINAL WALL, INITIAL ENCOUNTER SNOMED Code(s): 039466070 (5) Diabetes type 2, uncontrolled Current Visit: Yes Status: Acute Code(s): E11.65 - TYPE 2 DIABETES MELLITUS WITH HYPERGLYCEMIA SNOMED Code(s): 314096857
--- NOTE | 2021-10-18 10:23 | P.PN ---
Subjective Progress Note Date: 10/18/21 Patient is a 75-year-old female with a known history of asthma, history of CVA/TIA with no residual weakness, diabetes type 2, hypertension, hyperlipidemia, rheumatoid arthritis on prednisone daily presents to ER with complaints of shortness of breath started around 4 AM this morning. Patient felt like chest congestion and denied any chest pain. Patient states that she is having mild cough and congestion for the past couple of days. Denied any worsening leg swelling than usual. Patient was having worsening symptoms and called EMS. Denied any fever or chills. No nausea vomiting or abdominal pain or diarrhea. No headache or dizziness or diaphoresis. He states that she is fully vaccinated for code 19 infection. Denied any loss of taste or smell sensation. Laboratory data on admission showed WBC 7.3 hemoglobin 8.6 and platelets 204 BUN 29 and creatinine 1.36 Magnesium 1.3 troponin 0.057 and 4.360 ProBNP 2540 and covid-19 PCR not detected. Chest x-ray showed a vague reticular nodular density throughout the right lung may reflect developing infiltrate. Correlate clinically. This is Dr. Shelby dictating I am assuming care of this patient is still [facility] were covering for me up to this point On 10/14/2021 patient was seen and examined on the telemetry floor she is alert and oriented 3 in no apparent distress there is no fever or chills no headache or dizziness no chest pain no shortness of breath she has occasional cough with minimal sputum production there is no nausea or vomiting no abdominal pain no diarrhea no blood in the stools no burning with urination no frequency or urgency and no hematuria. Patient had blood culture initially reported this morning as positive for gram-positive cocci, she was started on IV vancomycin, infectious disease consultation was requested, however subsequently, culture was reported as coag-negative gram-positive cocci possible contamination, IV vancomycin was discontinued. On 10/15/2021 patient was seen and examined on the telemetry floor she is alert and oriented 3 in no apparent distress she is complaining of cough and occasional wheezing otherwise she denies any complaints there is no fever or chills no headache or dizziness no chest pain no shortness of breath, there is no nausea or vomiting no abdominal pain no diarrhea no blood in the stools no burning with urination no frequency or urgency and no hematuria. At this time will continue with IV antibiotics and recheck chest x-ray in a.m. On 10/16/2021 patient alert and oriented 3. Patient currently maintained on IV antibiotics, IV steroids, IV Lasix and heparin drip. Patient reports some improvement. Patient stopping significant wheezing. Chest x-ray ordered. Patient denies chest pain. Patient denies nausea vomiting or diarrhea. Patient denies any urinary burning or frequency On 10/17/2021 patient was seen and examined in the ICU she is alert and oriented 3 in no apparent distress, currently this morning patient had sharp abdominal pain, A team were called. Computed tomography scan of the abdomen was done and revealed evidence of abdominal wall hematoma she was transferred to intensive care unit she had evidence of anemia she received 2 units of red blood cell transfusion IV heparin was discontinued. she is complaining of cough and occasional wheezing otherwise she denies any complaints there is no fever or chills no headache or dizziness no chest pain no shortness of breath, there is no nausea or vomiting no abdominal pain no diarrhea no blood in the stools no burning with urination no frequency or urgency and no hematuria. At this time will continue with IV antibiotics and recheck chest x-ray in a.m. On 10/18/2021 patient remains in the intensive care unit. Patient is alert and oriented 3. Hemoglobin stable at 7.7. Patient does report some abdominal pain with coughing. Creatinine elevated at 3.56 and bun 80. Nephrology services are following. Per nephrology patient will be started on gentle hydration will be given Lasix 80 mg daily. Urology services also consulted. She still complaining of some shortness breath with wheezing. Patient denies chest pain. Patient denies nausea vomiting or diarrhea. Patient denies any urinary burning or frequency Objective - Vital Signs Vital signs: Vital Signs Temp 98.8 F 10/18/21 00:00 Pulse 91 10/18/21 07:00 Resp 17 10/18/21 07:00 BP 135/74 10/18/21 07:00 Pulse Ox 100 10/18/21 07:00 Intake & Output 10/17/21 10/18/21 10/18/21 18:59 06:59 18:59 Intake Total 720 240 20 Output Total 50 45 20 Balance 670 195 0 Weight 126.1 kg 126.3 kg Intake: IV 220 240 20 .9 220 240 20 Intake, IV Titration 500 Amount Sodium Chloride 0.9% 500 500 ml 500 ml @ 999 mls/hr IV .Q31M [facility] Rx#:[id number] Output: Urine 50 45 20 Other: Voiding Method Indwelling Catheter Indwelling Catheter # Voids 1 1 - Exam In general patient is alert and oriented x 3 in no distress HEENT head normocephalic and atraumatic Neck is supple no JVD no goiter no lymphadenopathy no carotid bruit Chest examination reveals scattered crackles bilaterally with wheezing Cardiac exam reveals regular heart sounds S1 and S2 no gallops no murmurs Abdomen is soft nontender no organomegaly with normal bowel sounds Extremity exam reveals no edema no cyanosis or clubbing Neurological examination reveals no gross focal deficits - Labs CBC & Chem 7: 10/18/21 03:58 10/18/21 03:58 Labs: Abnormal Lab Results - Last 24 Hours (Table) 10/17/21 10/17/21 10/17/21 Range/Units 11:22 15:45 16:22 WBC 13.2 H (3.8-10.6) k/uL RBC 2.86 L (3.80-5.40) m/uL Hgb 8.7 L (11.4-16.0) gm/dL Hct 26.4 L (34.0-46.0) % Neutrophils # 11.2 H (1.3-7.7) k/uL Neutrophils # (Manual) (1.3-7.7) k/uL Nucleated RBCs (0-0) /100 WBC Sodium (137-145) mmol/L Carbon Dioxide (22-30) mmol/L BUN (7-17) mg/dL Creatinine (0.52-1.04) mg/dL Glucose (74-99) mg/dL POC Glucose (mg/dL) 229 H (75-99) mg/dL Plasma Lactic Acid Bryan 2.6 H* (0.7-2.0) mmol/L Calcium (8.4-10.2) mg/dL Total Protein (6.3-8.2) g/dL Albumin (3.5-5.0) g/dL 10/17/21 10/17/21 10/17/21 Range/Units 18:01 19:50 19:50 WBC (3.8-10.6) k/uL RBC (3.80-5.40) m/uL Hgb (11.4-16.0) gm/dL Hct (34.0-46.0) % Neutrophils # (1.3-7.7) k/uL Neutrophils # (Manual) (1.3-7.7) k/uL Nucleated RBCs (0-0) /100 WBC Sodium 135 L (137-145) mmol/L Carbon Dioxide 19 L (22-30) mmol/L BUN 75 H (7-17) mg/dL Creatinine 2.94 H (0.52-1.04) mg/dL Glucose 220 H (74-99) mg/dL POC Glucose (mg/dL) 170 H (75-99) mg/dL Plasma Lactic Acid Bryan 3.0 H* (0.7-2.0) mmol/L Calcium 7.8 L (8.4-10.2) mg/dL Total Protein (6.3-8.2) g/dL Albumin (3.5-5.0) g/dL 10/17/21 10/17/21 10/18/21 Range/Units 20:50 23:39 03:58 WBC 15.5 H (3.8-10.6) k/uL RBC 2.57 L (3.80-5.40) m/uL Hgb 7.7 L (11.4-16.0) gm/dL Hct 23.8 L (34.0-46.0) % Neutrophils # (1.3-7.7) k/uL Neutrophils # (Manual) 13.90 H (1.3-7.7) k/uL Nucleated RBCs 2 H (0-0) /100 WBC Sodium (137-145) mmol/L Carbon Dioxide (22-30) mmol/L BUN (7-17) mg/dL Creatinine (0.52-1.04) mg/dL Glucose (74-99) mg/dL POC Glucose (mg/dL) 195 H (75-99) mg/dL Plasma Lactic Acid Bryan 6.7 H* (0.7-2.0) mmol/L Calcium (8.4-10.2) mg/dL Total Protein (6.3-8.2) g/dL Albumin (3.5-5.0) g/dL 10/18/21 10/18/21 10/18/21 Range/Units 03:58 03:58 06:40 WBC (3.8-10.6) k/uL RBC (3.80-5.40) m/uL Hgb (11.4-16.0) gm/dL Hct (34.0-46.0) % Neutrophils # (1.3-7.7) k/uL Neutrophils # (Manual) (1.3-7.7) k/uL Nucleated RBCs (0-0) /100 WBC Sodium 135 L (137-145) mmol/L Carbon Dioxide 17 L (22-30) mmol/L BUN 80 H (7-17) mg/dL Creatinine 3.56 H (0.52-1.04) mg/dL Glucose 214 H (74-99) mg/dL POC Glucose (mg/dL) 185 H (75-99) mg/dL Plasma Lactic Acid Bryan 2.6 H* (0.7-2.0) mmol/L Calcium 7.5 L (8.4-10.2) mg/dL Total Protein 5.8 L (6.3-8.2) g/dL Albumin 2.8 L (3.5-5.0) g/dL Microbiology - Last 24 Hours (Table) 10/13/21 09:58 Blood Culture - Preliminary Blood No Growth after 96 hours Assessment and Plan Plan: 1. Acute non-ST elevated MD elevated troponin level. Patient started on IV heparin cardiology consultation requested 2. Acute CHF exacerbation, with elevated BNP, 2-D echo completed showing an EF of 55-60%. Patient maintained on IV Lasix 3. Acute asthma exacerbation, patient has known history of asthma, she had severe wheezing on presentation which is improving 4. Right lower lobe pneumonia, maintained on IV Rocephin and IV Zithromax, sputum culture ordered. 5. Acute kidney injury likely prerenal with creatinine level I.36 on admission. 6. hypomagnesemia 1.3 on admission , replaced. 7. Underlying history of Hypertension 8. Hyperlipidemia 9. Rheumatoid arthritis on prednisone 5 mg daily 10. Normocytic anemia/anemia of chronic disease 11. 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 12. Morbid obesity BMI 40.2 13. Positive blood culture. Infectious disease services are following likely contamination 14. Abdominal wall hematoma and anemia, IV heparin was discontinued patient transferred to intensive care unit and received 2 units of red blood cell transfusion 15. Acute kidney injury secondary to ATN secondary to acute blood loss anemia. Oliguric. Neurology services have been consulted. Nephrology services are following. Lasix 80 mg IV once ordered today per nephrology. Critical care services, cardiology services, nephrology services, infectious disease services, neurology services and surgical services are following Continue IV antibiotics Continue to monitor hemoglobin closely repeat labs ordered
[2021-10-18] MEDS ORDERED: LIDOCAINE 1% INJ 10MG/ML (20 ML MDV) SQ ONE (10:56)
--- NOTE | 2021-10-18 11:36 | XR ---
EXAMINATION TYPE: XR chest 1V portable DATE OF EXAM: 10/18/2021 COMPARISON: 10/17/2021 INDICATION: PICC line placement TECHNIQUE: Single frontal view of the chest is obtained. FINDINGS: The heart size is normal. The pulmonary vasculature is normal. The lungs are clear. PICC line enters on the right with the tip in the proximal superior vena cava region. IMPRESSION: 1. No acute pulmonary process. 2. PICC line placement with tip in the proximal superior vena cava region.
[2021-10-18 12:54] LABS: Glucose,Whole Blood 217 mg/dL (75-99)
--- NOTE | 2021-10-18 13:56 | IR ---
EXAMINATION TYPE: IR cvc insert >=5 years DATE OF EXAM: 10/18/2021 COMPARISON: NONE HISTORY: Needs long-term intravenous access for intravenous fluids, renal failure FINDINGS: Maximal barrier technique was utilized. Hand hygiene obtained with soap and water and alco hol-based hand rub. The skin overlying the right brachial vein was localized with ultrasound and note d to be compressible and patent by ultrasound. An ultrasound image was obtained and submitted on pat nona's chart. Sterile technique utilized with the ultrasound machine. The skin overlying was prepped and draped and Lidocaine used for local anesthesia. A skin surya was made with a scalpel. Access was gained to the vein under direct ultrasound guidance with a 21-gauge needle and a 0.018 inch wire was advanced. Access site was dilated with a peel-away sheath and the catheter tailored to length. Cat heter advanced centrally and a post procedure chest x-ray verified placement with tip at the superior vena cava. Catheter was fixed to the skin and a sterile dressing placed. Hemostasis achieved and t he catheter was aspirated and flushed with sterile saline. The patient remained in stable condition. IMPRESSION: STATUS POST ULTRASOUND GUIDED PICC LINE PLACEMENT, READY FOR USE. THIS PROCEDURE WAS PER FORMED BY THE UNDERSIGNED.
--- NOTE | 2021-10-18 14:25 | P.PN ---
Subjective Progress Note Date: 10/18/21 Principal diagnosis: Acute non-ST elevation myocardial infarction This is a 75-year-old -[place] female, known history of asthma, hypertension, dyslipidemia, patient was admitted initially on 10/13/21, with chief complaint of chest discomfort. Patient was seen by cardiology on consultation, patient was felt to have hypertensive emergency, non-ST elevation myocardial infarction, anemia, and renal failure. Patient was placed on heparin, her beta blockers were discontinued because of severe expiratory wheezing on admission. Although it was felt that the patient may have cardiac asthma and she was treated with Lasix for interstitial edema. Patient was supposed to undergo cardiac catheterization today, and she was placed on heparin based on the recommendation by cardiology. Last night, the rapid response team was called to see the patient because of drop in her blood pressure and she was tachycardic. She was also noted to be lethargic, and was noted to be quite anemic. Patient was noted to have large abdominal wall hematoma based on the CT of the abdomen and pelvis it showed a large extraperitoneal abdominal wall hemorrhage measuring 7.89578 cm I was notified about this patient from the rapid response team, and considering the patient was hypotensive, she received 2 units of packed RBCs, I recommended immediate transfer to the ICU I also recommended reversing her heparin with protamine sulfate, and I recommended a stat surgical consultation. Patient was seen on consultation by Dr. Murphy for abdominal wall hematoma, the recommendation was mostly abdominal binder, reverse heparin, no need for surgical intervention at this point. The rec ommendation was mostly conservative measures. I saw this patient in the ICU today, she seems to be hemodynamically stable. Not in any distress, hemoglobin is now 9.2. She already received a total of 2 units of packed RBCs since last night. Her urine output is marginal and I recommended 500 mL of fluid followed by Lasix if the urine output does not improve. Her echocardiogram on admission showed good LV function, and there was moderate concentric LVH. Reevaluated today on 10/18/2021, patient remains in the ICU, patient is developing acute renal failure, she is developing hematuria, she received a total of 2 units of packed RBCs, and her last hemoglobin today was 7.7. She is to be seen by nephrology and she may undergo dialysis. She is also to be seen by urology for hematuria which is gross hematuria. WBC count today is 15.5 hemoglobin is 7.7. Electrolytes are normal however bicarb is 17 BUN is up to 80 creatinine is 3.56. Lactic acid today is 1.8. Chest x-ray is showing no acute pulmonary process, she had a PICC line placed yesterday uneventfully. She does have a small left pleural effusion. Patient is oliguric. And she has developed significant metabolic acidosis with acute kidney injury and lactic acidosis. Pulmonary-bryant, the patient is on 3 L nasal cannula, does not seem to be in any respiratory distress. Objective - Vital Signs Vital signs: Vital Signs Temp 97.8 F 10/18/21 12:00 Pulse 96 10/18/21 14:00 Resp 18 10/18/21 14:00 BP 146/65 10/18/21 14:00 Pulse Ox 96 10/18/21 14:00 Intake & Output 10/17/21 10/18/21 10/18/21 18:59 06:59 18:59 Intake Total 720 240 210 Output Total 50 45 79 Balance 670 195 131 Weight 126.1 kg 126.3 kg Intake: IV 220 240 210 .9 220 240 110 Sodium Chloride 0.9% 1, 100 000 ml @ 50 mls/hr IV . Q20H [facility] Rx#:[id number] Intake, IV Titration 500 Amount Sodium Chloride 0.9% 500 500 ml 500 ml @ 999 mls/hr IV .Q31M [facility] Rx#:[id number] Output: Urine 50 45 79 Other: Voiding Method Indwelling Catheter Indwelling Catheter Indwelling Catheter # Voids 1 1 - Exam Physical Exam: Revealed a 75-year-old -Hungarian female, obese, in no distress. Patient is on 3 L nasal cannula with O2 saturation of around percent. Head: Atraumatic, normocephalic. HEENT:[Neck is supple.] [No neck masses.] [No thyromegaly.] [No JVD.] Chest: [Symmetrical chest expansion, minimal crackles at the bases, no rhonchi and no wheezes..] Cardiac Exam: [Normal S1 and S2, no S3 gallop, no murmur.] Abdomen: [Obese, Soft, nontender, no megaly, no rebound, no guarding, normal bowel sounds.] Abdominal binder is noted. Extremities: [No clubbing, no edema, no cyanosis.] Neurological Exam: [No focal neurologic deficit.] Alert oriented 3. Psychiatric: Normal mood, affect and normal mental status examination. Skin: No rashes. - Labs CBC & Chem 7: 10/18/21 03:58 10/18/21 03:58 Labs: Abnormal Lab Results - Last 24 Hours (Table) 10/17/21 10/17/21 10/17/21 Range/Units 15:45 16:22 18:01 WBC 13.2 H (3.8-10.6) k/uL RBC 2.86 L (3.80-5.40) m/uL Hgb 8.7 L (11.4-16.0) gm/dL Hct 26.4 L (34.0-46.0) % Neutrophils # 11.2 H (1.3-7.7) k/uL Neutrophils # (Manual) (1.3-7.7) k/uL Nucleated RBCs (0-0) /100 WBC Sodium (137-145) mmol/L Carbon Dioxide (22-30) mmol/L BUN (7-17) mg/dL Creatinine (0.52-1.04) mg/dL Glucose (74-99) mg/dL POC Glucose (mg/dL) 170 H (75-99) mg/dL Plasma Lactic Acid Bryan 2.6 H* (0.7-2.0) mmol/L Calcium (8.4-10.2) mg/dL Total Protein (6.3-8.2) g/dL Albumin (3.5-5.0) g/dL 10/17/21 10/17/21 10/17/21 Range/Units 19:50 19:50 20:50 WBC (3.8-10.6) k/uL RBC (3.80-5.40) m/uL Hgb (11.4-16.0) gm/dL Hct (34.0-46.0) % Neutrophils # (1.3-7.7) k/uL Neutrophils # (Manual) (1.3-7.7) k/uL Nucleated RBCs (0-0) /100 WBC Sodium 135 L (137-145) mmol/L Carbon Dioxide 19 L (22-30) mmol/L BUN 75 H (7-17) mg/dL Creatinine 2.94 H (0.52-1.04) mg/dL Glucose 220 H (74-99) mg/dL POC Glucose (mg/dL) 195 H (75-99) mg/dL Plasma Lactic Acid Bryan 3.0 H* (0.7-2.0) mmol/L Calcium 7.8 L (8.4-10.2) mg/dL Total Protein (6.3-8.2) g/dL Albumin (3.5-5.0) g/dL 10/17/21 10/18/21 10/18/21 Range/Units 23:39 03:58 03:58 WBC 15.5 H (3.8-10.6) k/uL RBC 2.57 L (3.80-5.40) m/uL Hgb 7.7 L (11.4-16.0) gm/dL Hct 23.8 L (34.0-46.0) % Neutrophils # (1.3-7.7) k/uL Neutrophils # (Manual) 13.90 H (1.3-7.7) k/uL Nucleated RBCs 2 H (0-0) /100 WBC Sodium 135 L (137-145) mmol/L Carbon Dioxide 17 L (22-30) mmol/L BUN 80 H (7-17) mg/dL Creatinine 3.56 H (0.52-1.04) mg/dL Glucose 214 H (74-99) mg/dL POC Glucose (mg/dL) (75-99) mg/dL Plasma Lactic Acid Bryan 6.7 H* (0.7-2.0) mmol/L Calcium 7.5 L (8.4-10.2) mg/dL Total Protein 5.8 L (6.3-8.2) g/dL Albumin 2.8 L (3.5-5.0) g/dL 10/18/21 10/18/21 10/18/21 Range/Units 03:58 06:40 12:53 WBC (3.8-10.6) k/uL RBC (3.80-5.40) m/uL Hgb (11.4-16.0) gm/dL Hct (34.0-46.0) % Neutrophils # (1.3-7.7) k/uL Neutrophils # (Manual) (1.3-7.7) k/uL Nucleated RBCs (0-0) /100 WBC Sodium (137-145) mmol/L Carbon Dioxide (22-30) mmol/L BUN (7-17) mg/dL Creatinine (0.52-1.04) mg/dL Glucose (74-99) mg/dL POC Glucose (mg/dL) 185 H 217 H (75-99) mg/dL Plasma Lactic Acid Bryan 2.6 H* (0.7-2.0) mmol/L Calcium (8.4-10.2) mg/dL Total Protein (6.3-8.2) g/dL Albumin (3.5-5.0) g/dL Microbiology - Last 24 Hours (Table) 10/13/21 09:58 Blood Culture - Preliminary Blood No Growth after 120 hours Assessment and Plan Assessment: Impression: Acute blood loss anemia, secondary to heparin, patient developed abdominal wall hematoma, status post 2 units of packed RBC transfusion. Acute kidney injury with oliguria and hematuria being addressed by nephrology and urology. Acute on chronic diastolic congestive heart failure Hypertensive emergency on presentation according to the notes by cardiology. Non-ST elevation myocardial infarction History of TIA History of hypertension History of dyslipidemia Recommendation: Agree with the present treatment plan No more heparin at this point. Continue abdominal binder. Patient to be evaluated by urology and nephrology Considering her worsening renal status may need hemodialysis. Continue cardiac meds for hypertension. Continue to monitor hemoglobin. Patient could be transferred out of the ICU to a monitor bed on selective. Prognosis is relatively guarded Time with Patient: Greater than 30
[2021-10-18 14:47] LABS: Appearance,Urine Turbid (Clear); Bilirubin,Urine Negative (Negative); Blood,Urine Large (Negative); Color,Urine Dark Brown; Glucose,Urine (UA) Negative (Negative); Hyaline Casts,Urine 16 /lpf (0-2); Ketones,Urine Negative (Negative); Leukocyte Esterase,Urine Moderate (Negative); Mucus,Urine Rare /hpf; Nitrite,Urine Negative (Negative); Protein,Urine 2+ (Negative); RBC,Urine >182 /hpf (0-5); Specific Gravity,Urine 1.017 (1.001-1.035); Squamous Epithelial Cell,Urine 6 /hpf (0-4); Urobilinogen,Urine <2.0 mg/dL (<2.0); WBC,Urine >182 /hpf (0-5)
[2021-10-18] MEDS: CLOPIDOGREL 75 MG TAB PO SCH (15:37)
[2021-10-18] MEDS: lisinopriL 20 MG TAB PO SCH (15:37)
[2021-10-18 16:30] LABS: Glucose,Whole Blood 251 mg/dL (75-99)
[2021-10-18 17:07] LABS: Calcium 7.5 mg/dL (8.4-10.2); Potassium 4.8 mmol/L (3.5-5.1)
[2021-10-18 20:55] LABS: Glucose,Whole Blood 228 mg/dL (75-99)
[2021-10-18] MEDS: MONTELUKAST 10 MG TAB PO SCH (21:32)
--- NOTE | 2021-10-18 23:38 | PN ---
PROGRESS NOTE DATE OF SERVICE: 10/18/2021 REASON FOR FOLLOWUP: 1. Asthma exacerbation with tracheobronchitis. 2. UTI. INTERVAL HISTORY: Patient is afebrile. The patient is still complaining of shortness of breath and wheezing and did have a cough, bringing up some in the sputum. No nausea, no vomiting. No abdominal pain or diarrhea. PHYSICAL EXAMINATION: Her blood pressure 154/67 with a pulse of 90, temperature 98.3. She is 99% on 2 L nasal cannula. General description is an elderly female lying in bed in no distress. Respiratory system: Unlabored breathing, decreased intensity of breath sounds. No wheeze. Heart S1, S2. Regular rate and rhythm. Abdomen soft, no tenderness. LAB: The patient's creatinine is up to 4.06. Did have a positive UA. White count 15.5. Chest x-ray with . DIAGNOSTIC IMPRESSION AND PLAN: 1. Patient admitted to hospital with asthma exacerbation possible tracheobronchitis, no evidence of pneumonia. Chest x-ray has been negative. 2. Patient has some urinary burning with evidence of a positive UA, likely symptomatic urinary tract infection from enteric gram-negative. Rocephin will be added while waiting for the culture to finalize and monitor clinical course closely. MMODL / IJN: [id number] /
[2021-10-19] MEDS: DEXTROSE 5% IN WATER 1,000 ML with SODIUM BICARB (1 MEQ/ML) 150 ML IV SCH (00:29)
[2021-10-19] MEDS: LEVOTHYROXINE 25 MCG TAB PO SCH (05:04)
[2021-10-19] MEDS: methylPREDNISolone SOD SUCCI 125 MG/2 ML VIAL IV SCH ×3 (05:04→18:00)
[2021-10-19 06:14] LABS: Glucose,Whole Blood 207 mg/dL (75-99)
[2021-10-19] MEDS: INSULIN ASPART (NovoLOG) 100 UNIT/ML VIAL SQ SCH ×3 (06:16→17:45)
--- NOTE | 2021-10-19 08:27 | P.PN ---
Subjective Progress Note Date: 10/19/21 Principal diagnosis: This is a 75-year-old female seen in consultation because of acute kidney injury secondary to blood loss and an abdominal wall hematoma. Has been transfused. Creatinine was 1.36 on admission and went up to 3.56. Also had a gap and non- gap acidosis with bicarb of 16 and a gap of 14. Started on by mouth bicarbonate. Urinalysis shows 2+ protein, a chest x-ray shows no acute pulmonary process Blood pressure is stable 103/47 afebrile Objective - Vital Signs Vital signs: Vital Signs Temp 98.6 F 10/19/21 08:01 Pulse 80 10/19/21 08:01 Resp 18 10/19/21 08:01 BP 103/47 10/19/21 08:01 Pulse Ox 95 10/19/21 08:01 Intake & Output 10/18/21 10/19/21 10/19/21 18:59 06:59 18:59 Intake Total 210 Output Total 79 370 Balance 131 -370 Weight 126.9 kg Intake: IV 210 .9 110 Sodium Chloride 0.9% 1, 100 000 ml @ 50 mls/hr IV . Q20H [facility] Rx#:[id number] Output: Urine 79 370 Other: Voiding Method Indwelling Catheter Indwelling Catheter An examination is awake alert oriented but slightly short of breath on oxygen. HEENT exam JVP not seen. Neck is supple no facial asymmetry Lungs are significant for bilateral mild wheezing good air entry bilaterally Heart sounds unremarkable for any murmur rub gallop Abdomen soft but some tenderness with a binder on. Extremity exam was no edema Neurologically awake alert oriented - Labs CBC & Chem 7: 10/18/21 03:58 10/18/21 16:19 Labs: Abnormal Lab Results - Last 24 Hours (Table) 10/18/21 10/18/21 10/18/21 Range/Units 12:53 14:00 16:19 Sodium 134 L (137-145) mmol/L Carbon Dioxide 16 L (22-30) mmol/L BUN 89 H (7-17) mg/dL Creatinine 4.06 H (0.52-1.04) mg/dL Glucose 231 H (74-99) mg/dL POC Glucose (mg/dL) 217 H (75-99) mg/dL Calcium 7.5 L (8.4-10.2) mg/dL Urine Appearance Turbid H (Clear) Urine Protein 2+ H (Negative) Urine Blood Large H (Negative) Ur Leukocyte Esterase Moderate H (Negative) Urine RBC >182 H (0-5) /hpf Urine WBC >182 H (0-5) /hpf Urine WBC Clumps Many H (None) /hpf Ur Squamous Epith Cells 6 H (0-4) /hpf Hyaline Casts 16 H (0-2) /lpf Urine Mucus Rare H (None) /hpf 10/18/21 10/18/21 10/18/21 Range/Units 16:28 20:53 20:53 Sodium (137-145) mmol/L Carbon Dioxide (22-30) mmol/L BUN (7-17) mg/dL Creatinine (0.52-1.04) mg/dL Glucose (74-99) mg/dL POC Glucose (mg/dL) 251 H 228 H 228 H (75-99) mg/dL Calcium (8.4-10.2) mg/dL Urine Appearance (Clear) Urine Protein (Negative) Urine Blood (Negative) Ur Leukocyte Esterase (Negative) Urine RBC (0-5) /hpf Urine WBC (0-5) /hpf Urine WBC Clumps (None) /hpf Ur Squamous Epith Cells (0-4) /hpf Hyaline Casts (0-2) /lpf Urine Mucus (None) /hpf 10/19/21 Range/Units 06:11 Sodium (137-145) mmol/L Carbon Dioxide (22-30) mmol/L BUN (7-17) mg/dL Creatinine (0.52-1.04) mg/dL Glucose (74-99) mg/dL POC Glucose (mg/dL) 207 H (75-99) mg/dL Calcium (8.4-10.2) mg/dL Urine Appearance (Clear) Urine Protein (Negative) Urine Blood (Negative) Ur Leukocyte Esterase (Negative) Urine RBC (0-5) /hpf Urine WBC (0-5) /hpf Urine WBC Clumps (None) /hpf Ur Squamous Epith Cells (0-4) /hpf Hyaline Casts (0-2) /lpf Urine Mucus (None) /hpf Microbiology - Last 24 Hours (Table) 10/13/21 09:58 Blood Culture - Preliminary Blood No Growth after 120 hours Assessment and Plan Assessment: Impression 1. Acute kidney injury prerenal, with significant anemia off 5.9, creatinine went up from 1.36 to 4.06 yesterday. Vital signs are stable except for his one blood pressure recorded early this morning of 103/47 and possible sepsis with blood cultures are growing coagulase negative staph but only 1 out of 2 cultures possible contaminant 2. Chronic kidney disease stage III with a baseline creatinine of 1.3 with microalbuminuria 168 mg/g of creatinine on 820 04/02/2020, etiology is nephrosclerosis and diabetic nephropathy 3. Urinalysis is significant for RBCs and WBCs, rule out acute interstitial nephritis 4. Iron deficiency 13% saturation on 10/14/2021 5. Anemia, secondary to COPD and iron deficiency and acute blood loss 6. Gap and non-gap acidosis from acute kidney injury. Recommendation 1. Hold the Lasix and continue IV fluids currently on D5W with 3 A of bicarb at 50 an hour. 2. Check orthostatic changes 3. Check urine protein to creatinine ratio, 4. Avoid nephrotoxic medications, had one dose of vancomycin possibly with a level of 7.4 on 10/16/2021
[2021-10-19] MEDS: DOCUSATE 100 MG CAP PO SCH ×2 (08:47→20:38)
[2021-10-19] MEDS: PANTOPRAZOLE 40 MG/10 ML VIAL IVP SCH (08:47)
[2021-10-19] MEDS: SODIUM BICARBONATE TAB 650 MG TAB PO SCH ×2 (08:48→20:38)
[2021-10-19] MEDS: amLODIPine 10 MG TAB PO SCH (08:48)
[2021-10-19] MEDS: glipiZIDE 5 MG TAB PO SCH ×3 (08:48→20:38)
[2021-10-19] MEDS: EZETIMIBE 10 MG TAB PO SCH (08:55)
[2021-10-19] MEDS: OXYBUTYNIN 10 MG TAB.ER.24 PO SCH (08:55)
[2021-10-19] MEDS: prednisoLONE ACETATE 1% OPHTH DROPS 5 ML BTL BOTH EYES SCH ×4 (08:55→20:42)
[2021-10-19] MEDS: IPRATROPIUM-ALBUTEROL 3 ML NEB INHALATION PRN ×4 (09:28→21:10)
--- NOTE | 2021-10-19 11:00 | P.PN ---
Subjective Progress Note Date: 10/19/21 Principal diagnosis: Hypertension emergency The patient is a pleasant 75-year-old female patient with a past medical history significant for asthma and hypertension and dyslipidemia who was admitted to the hospital with hypertension emergency complicated by acute non-ST deviation myocardial infarction as well as heart failure. The patient wasn't started on anticoagulation and subsequently she developed abdominal wall hematoma and she was transferred to the intensive care unit. And then subsequently she was transferred to the floor. She remains a stable hemodynamically with reasonable blood pressure as well as heart rate. No hemoglobin from this morning. Unfortunately the kidney function is worse. Nephrology team is on the case. She reports no chest pain at this point. Objective - Vital Signs Vital signs: Vital Signs Temp 98.6 F 10/19/21 08:01 Pulse 92 10/19/21 09:38 Resp 18 10/19/21 08:01 BP 103/47 10/19/21 08:01 Pulse Ox 95 10/19/21 08:01 Intake & Output 10/18/21 10/19/21 10/19/21 18:59 06:59 18:59 Intake Total 210 Output Total 79 370 Balance 131 -370 Weight 126.9 kg Intake: IV 210 .9 110 Sodium Chloride 0.9% 1, 100 000 ml @ 50 mls/hr IV . Q20H [facility] Rx#:[id number] Output: Urine 79 370 Other: Voiding Method Indwelling Catheter Indwelling Catheter - Constitutional General appearance: Present: no acute distress - Respiratory Respiratory: bilateral: wheezing - Cardiovascular Rhythm: regular - Labs CBC & Chem 7: 10/18/21 03:58 10/18/21 16:19 Labs: Abnormal Lab Results - Last 24 Hours (Table) 10/18/21 10/18/21 10/18/21 Range/Units 12:53 14:00 16:19 Sodium 134 L (137-145) mmol/L Carbon Dioxide 16 L (22-30) mmol/L BUN 89 H (7-17) mg/dL Creatinine 4.06 H (0.52-1.04) mg/dL Glucose 231 H (74-99) mg/dL POC Glucose (mg/dL) 217 H (75-99) mg/dL Calcium 7.5 L (8.4-10.2) mg/dL Urine Appearance Turbid H (Clear) Urine Protein 2+ H (Negative) Urine Blood Large H (Negative) Ur Leukocyte Esterase Moderate H (Negative) Urine RBC >182 H (0-5) /hpf Urine WBC >182 H (0-5) /hpf Urine WBC Clumps Many H (None) /hpf Ur Squamous Epith Cells 6 H (0-4) /hpf Hyaline Casts 16 H (0-2) /lpf Urine Mucus Rare H (None) /hpf 10/18/21 10/18/21 10/18/21 Range/Units 16:28 20:53 20:53 Sodium (137-145) mmol/L Carbon Dioxide (22-30) mmol/L BUN (7-17) mg/dL Creatinine (0.52-1.04) mg/dL Glucose (74-99) mg/dL POC Glucose (mg/dL) 251 H 228 H 228 H (75-99) mg/dL Calcium (8.4-10.2) mg/dL Urine Appearance (Clear) Urine Protein (Negative) Urine Blood (Negative) Ur Leukocyte Esterase (Negative) Urine RBC (0-5) /hpf Urine WBC (0-5) /hpf Urine WBC Clumps (None) /hpf Ur Squamous Epith Cells (0-4) /hpf Hyaline Casts (0-2) /lpf Urine Mucus (None) /hpf 10/19/21 Range/Units 06:11 Sodium (137-145) mmol/L Carbon Dioxide (22-30) mmol/L BUN (7-17) mg/dL Creatinine (0.52-1.04) mg/dL Glucose (74-99) mg/dL POC Glucose (mg/dL) 207 H (75-99) mg/dL Calcium (8.4-10.2) mg/dL Urine Appearance (Clear) Urine Protein (Negative) Urine Blood (Negative) Ur Leukocyte Esterase (Negative) Urine RBC (0-5) /hpf Urine WBC (0-5) /hpf Urine WBC Clumps (None) /hpf Ur Squamous Epith Cells (0-4) /hpf Hyaline Casts (0-2) /lpf Urine Mucus (None) /hpf Microbiology - Last 24 Hours (Table) 10/13/21 09:58 Blood Culture - Preliminary Blood No Growth after 120 hours Assessment and Plan Assessment: Assessment #1 hypertension emergency #2 acute renal failure #3 abdominal wall hematoma #4 blood loss anemia #5 acute coronary syndrome #6 multiple comorbid conditions Plan #1 the patient remains a stable hemodynamically #2 continue the current medical regimen #3 follow-up with the patient
--- NOTE | 2021-10-19 11:15 | P.GSCN ---
History of Present Illness Consult date: 10/19/21 Reason for Consult: Hematuria Requesting physician: Jasmina Ruano History of present illness: The patient is a 75-year-old white female with a history of asthma, hypertension, and dyslipidemia. She presented to the ER with cough and dyspnea and was found to be hypertensive. She was diagnosed with acute non-ST deviation myocardial infarction as well as heart failure. She was treated with anticoagulation and developed a large abdominal wall hematoma extending into the pelvis. She became anemic and hypotensive, requiring transfusion. Heparin was reversed. She has been noted to have hematuria, which is improving. The patient states that she has been treated for recurrent UTIs this past year. Symptomatically, she reports urge incontinence and states that her urine is malodorous at the time of her UTIs. She denies dysuria and hematuria. She denies pneumaturia and fecaluria. Review of Systems - Constitutional Denies chills, Denies fever - Respiratory Reports cough, Reports dyspnea - Genitourinary Genitourinary: Reports as per HPI Past Medical History Past Medical History: Asthma, CVA/TIA, Diabetes Mellitus, Hyperlipidemia, Hypertension, Rheumatoid Arthritis (RA) Additional Past Medical History / Comment(s): TIA in 2016 History of Any Multi-Drug Resistant Organisms: None Reported Past Surgical History: Appendectomy, Tubal Ligation Additional Past Surgical History / Comment(s): Colonoscopy, cataracts surg Past Anesthesia/Blood Transfusion Reactions: No Reported Reaction Past Psychological History: No Psychological Hx Reported Smoking Status: Never smoker Past Alcohol Use History: None Reported Past Drug Use History: None Reported - Past Family History Father Family Medical History: Cancer, Congestive Heart Failure (CHF) Additional Family Medical History / Comment(s): colon cancer Mother Family Medical History: Rheumatoid Arthritis (RA) Medications and Allergies Home Medications Medication Instructions Recorded Confirmed Type Clopidogrel [Plavix] 75 mg PO DAILY 05/14/19 10/13/21 History Metoprolol Succinate (ER) [Toprol 25 mg PO DAILY 05/14/19 10/13/21 History XL] lisinopriL 40 mg PO DAILY 05/14/19 10/13/21 History Montelukast [Singulair] 10 mg PO HS #30 tab 05/24/19 10/13/21 Rx Albuterol Inhaler [Ventolin Hfa 1 - 2 puff INHALATION RT-QID PRN 06/14/20 10/13/21 History Inhaler] Tolterodine ER [Detrol LA] 4 mg PO DAILY 06/14/20 10/13/21 History Ferrous Sulfate [Iron (65 MG 325 mg PO DAILY 02/16/21 10/13/21 History Elemental)] Acetaminophen Tab [Tylenol Tab] 1,000 mg PO Q6HR PRN 10/13/21 10/13/21 History Cholecalciferol [Vitamin D3 (25 50 mcg PO DAILY 10/13/21 10/13/21 History Mcg = 1000 Iu)] Ezetimibe [Zetia] 10 mg PO DAILY 10/13/21 10/13/21 History Levothyroxine Sodium [Synthroid] 25 mcg PO DAILY 10/13/21 10/13/21 History glipiZIDE [Glucotrol] 5 mg PO TID 10/13/21 10/13/21 History guaiFENesin [Diabetic Tussin] 200 mg PO Q6H PRN 10/13/21 10/13/21 History predniSONE 5 mg PO DAILY 10/13/21 10/13/21 History prednisoLONE ACETATE 1% OPHTH 1 drops BOTH EYES QID 10/13/21 10/13/21 History [Pred Forte 1%] Allergies Allergy/AdvReac Type Severity Reaction Status Date / Time atorvastatin [From Lipitor] AdvReac CRAMPS Verified 10/13/21 10:53 latex AdvReac Itching Verified 10/13/21 10:53 Surgical - Exam Vital Signs Pulse 112 H 10/13/21 09:59 - General well developed, well nourished, no distress - Respiratory normal respiratory effort - Abdomen Soft, non-distended. Mild right-sided abdominal wall tenderness. No guarding or rebound. - Psychiatric oriented to time, oriented to person, oriented to place, speech is normal, memory intact Results - Labs 10/18/21 03:58 10/18/21 16:19 Abnormal Lab Results - Last 24 Hours (Table) 10/18/21 10/18/21 10/18/21 Range/Units 12:53 14:00 16:19 Sodium 134 L (137-145) mmol/L Carbon Dioxide 16 L (22-30) mmol/L BUN 89 H (7-17) mg/dL Creatinine 4.06 H (0.52-1.04) mg/dL Glucose 231 H (74-99) mg/dL POC Glucose (mg/dL) 217 H (75-99) mg/dL Calcium 7.5 L (8.4-10.2) mg/dL Urine Appearance Turbid H (Clear) Urine Protein 2+ H (Negative) Urine Blood Large H (Negative) Ur Leukocyte Esterase Moderate H (Negative) Urine RBC >182 H (0-5) /hpf Urine WBC >182 H (0-5) /hpf Urine WBC Clumps Many H (None) /hpf Ur Squamous Epith Cells 6 H (0-4) /hpf Hyaline Casts 16 H (0-2) /lpf Urine Mucus Rare H (None) /hpf 10/18/21 10/18/21 10/18/21 Range/Units 16:28 20:53 20:53 Sodium (137-145) mmol/L Carbon Dioxide (22-30) mmol/L BUN (7-17) mg/dL Creatinine (0.52-1.04) mg/dL Glucose (74-99) mg/dL POC Glucose (mg/dL) 251 H 228 H 228 H (75-99) mg/dL Calcium (8.4-10.2) mg/dL Urine Appearance (Clear) Urine Protein (Negative) Urine Blood (Negative) Ur Leukocyte Esterase (Negative) Urine RBC (0-5) /hpf Urine WBC (0-5) /hpf Urine WBC Clumps (None) /hpf Ur Squamous Epith Cells (0-4) /hpf Hyaline Casts (0-2) /lpf Urine Mucus (None) /hpf 10/19/21 Range/Units 06:11 Sodium (137-145) mmol/L Carbon Dioxide (22-30) mmol/L BUN (7-17) mg/dL Creatinine (0.52-1.04) mg/dL Glucose (74-99) mg/dL POC Glucose (mg/dL) 207 H (75-99) mg/dL Calcium (8.4-10.2) mg/dL Urine Appearance (Clear) Urine Protein (Negative) Urine Blood (Negative) Ur Leukocyte Esterase (Negative) Urine RBC (0-5) /hpf Urine WBC (0-5) /hpf Urine WBC Clumps (None) /hpf Ur Squamous Epith Cells (0-4) /hpf Hyaline Casts (0-2) /lpf Urine Mucus (None) /hpf Microbiology - Last 24 Hours (Table) 10/13/21 09:58 Blood Culture - Preliminary Blood No Growth after 120 hours Diabetes panel 10/18/21 Range/Units 16:19 Sodium 134 L (137-145) mmol/L Potassium 4.8 (3.5-5.1) mmol/L Chloride 104 (98-107) mmol/L Carbon Dioxide 16 L (22-30) mmol/L BUN 89 H (7-17) mg/dL Creatinine 4.06 H (0.52-1.04) mg/dL Glucose 231 H (74-99) mg/dL Calcium 7.5 L (8.4-10.2) mg/dL Calcium panel 10/18/21 Range/Units 16:19 Calcium 7.5 L (8.4-10.2) mg/dL Pituitary panel 10/18/21 Range/Units 16:19 Sodium 134 L (137-145) mmol/L Potassium 4.8 (3.5-5.1) mmol/L Chloride 104 (98-107) mmol/L Carbon Dioxide 16 L (22-30) mmol/L BUN 89 H (7-17) mg/dL Creatinine 4.06 H (0.52-1.04) mg/dL Glucose 231 H (74-99) mg/dL Calcium 7.5 L (8.4-10.2) mg/dL Adrenal panel 10/18/21 Range/Units 16:19 Sodium 134 L (137-145) mmol/L Potassium 4.8 (3.5-5.1) mmol/L Chloride 104 (98-107) mmol/L Carbon Dioxide 16 L (22-30) mmol/L BUN 89 H (7-17) mg/dL Creatinine 4.06 H (0.52-1.04) mg/dL Glucose 231 H (74-99) mg/dL Calcium 7.5 L (8.4-10.2) mg/dL - Imaging CT scan - pelvis: report reviewed, image reviewed Assessment and Plan (1) Acute blood loss anemia Current Visit: Yes Status: Acute Code(s): D62 - ACUTE POSTHEMORRHAGIC ANEMIA SNOMED Code(s): 016515864 (2) Abdominal wall hematoma Current Visit: Yes Status: Acute Code(s): S30.1XXA - CONTUSION OF ABDOMINAL WALL, INITIAL ENCOUNTER SNOMED Code(s): 218043299 (3) Gross hematuria Current Visit: Yes Status: Acute Code(s): R31.0 - GROSS HEMATURIA SNOMED Code(s): 913147343 Plan: The Cardoza catheter is currently draining clear urine. There is some sediment in the tubing reflective of old blood. The appearance of the bladder on CT scan is distorted as a result of the pelvic hematoma. I see no role for urologic surgery at this time, and a Cardoza catheter may be removed when no longer medic ally needed. I have suggested the patient that she undergo office cystoscopy in 4-6 weeks to rule out intravesical pathology. She will also be evaluated for recurrent UTIs. Time with Patient: Greater than 30
[2021-10-19 12:02] LABS: Glucose,Whole Blood 194 mg/dL (75-99)
--- NOTE | 2021-10-19 12:14 | P.PN ---
Subjective Progress Note Date: 10/19/21 Principal diagnosis: Abdominal wall hematoma Patient says she is only having pain in the abdominal wall with movement and coughing. Overall seems to be getting better. She is tolerating her diet. Today's hemoglobin pending. Objective - Vital Signs Vital signs: Vital Signs Temp 98.6 F 10/19/21 08:01 Pulse 92 10/19/21 09:38 Resp 18 10/19/21 08:01 BP 103/47 10/19/21 08:01 Pulse Ox 95 10/19/21 08:01 Intake & Output 10/18/21 10/19/21 10/19/21 18:59 06:59 18:59 Intake Total 210 Output Total 79 370 Balance 131 -370 Weight 126.9 kg Intake: IV 210 .9 110 Sodium Chloride 0.9% 1, 100 000 ml @ 50 mls/hr IV . Q20H [facility] Rx#:[id number] Output: Urine 79 370 Other: Voiding Method Indwelling Catheter Indwelling Catheter Indwelling Catheter - Exam Abdomen: Soft, mild distention, mild right-sided tenderness - Labs CBC & Chem 7: 10/18/21 03:58 10/18/21 16:19 Labs: Abnormal Lab Results - Last 24 Hours (Table) 10/18/21 10/18/21 10/18/21 Range/Units 12:53 14:00 16:19 Sodium 134 L (137-145) mmol/L Carbon Dioxide 16 L (22-30) mmol/L BUN 89 H (7-17) mg/dL Creatinine 4.06 H (0.52-1.04) mg/dL Glucose 231 H (74-99) mg/dL POC Glucose (mg/dL) 217 H (75-99) mg/dL Calcium 7.5 L (8.4-10.2) mg/dL Urine Appearance Turbid H (Clear) Urine Protein 2+ H (Negative) Urine Blood Large H (Negative) Ur Leukocyte Esterase Moderate H (Negative) Urine RBC >182 H (0-5) /hpf Urine WBC >182 H (0-5) /hpf Urine WBC Clumps Many H (None) /hpf Ur Squamous Epith Cells 6 H (0-4) /hpf Hyaline Casts 16 H (0-2) /lpf Urine Mucus Rare H (None) /hpf 10/18/21 10/18/21 10/18/21 Range/Units 16:28 20:53 20:53 Sodium (137-145) mmol/L Carbon Dioxide (22-30) mmol/L BUN (7-17) mg/dL Creatinine (0.52-1.04) mg/dL Glucose (74-99) mg/dL POC Glucose (mg/dL) 251 H 228 H 228 H (75-99) mg/dL Calcium (8.4-10.2) mg/dL Urine Appearance (Clear) Urine Protein (Negative) Urine Blood (Negative) Ur Leukocyte Esterase (Negative) Urine RBC (0-5) /hpf Urine WBC (0-5) /hpf Urine WBC Clumps (None) /hpf Ur Squamous Epith Cells (0-4) /hpf Hyaline Casts (0-2) /lpf Urine Mucus (None) /hpf 10/19/21 10/19/21 Range/Units 06:11 12:00 Sodium (137-145) mmol/L Carbon Dioxide (22-30) mmol/L BUN (7-17) mg/dL Creatinine (0.52-1.04) mg/dL Glucose (74-99) mg/dL POC Glucose (mg/dL) 207 H 194 H (75-99) mg/dL Calcium (8.4-10.2) mg/dL Urine Appearance (Clear) Urine Protein (Negative) Urine Blood (Negative) Ur Leukocyte Esterase (Negative) Urine RBC (0-5) /hpf Urine WBC (0-5) /hpf Urine WBC Clumps (None) /hpf Ur Squamous Epith Cells (0-4) /hpf Hyaline Casts (0-2) /lpf Urine Mucus (None) /hpf Microbiology - Last 24 Hours (Table) 10/13/21 09:58 Blood Culture - Final Blood No Growth after 144 hours Assessment and Plan (1) Abdominal wall hematoma Narrative/Plan: Patient seems to be doing better. Await today's hemoglobin. Do not suspect active bleeding. Continue diet. Will follow. Current Visit: Yes Status: Acute Code(s): S30.1XXA - CONTUSION OF ABDOMINAL WALL, INITIAL ENCOUNTER SNOMED Code(s): 457990646
[2021-10-19 12:15] LABS: ALT 20 U/L (8-44); AST 16 U/L (13-35); African American GFR (CKD) 11.8 (60.0-200.0); Albumin 2.8 g/dL (3.8-4.9); Albumin/Globulin Ratio 1.04 (1.60-3.17); Alkaline Phosphatase 62 U/L (41-126); BUN/Creat Ratio 23.25 Ratio (12.00-20.00); Calcium 7.6 mg/dL (8.7-10.3); Carbon Dioxide 18.2 mmol/L (20.0-27.5); Chloride 99 mmol/L (96-109); Globulin 2.7 g/dL (1.6-3.3); Glucose 196 mg/dL (70-110); Non-African American GFR(CKD) 10.2 (60.0-200.0); Sodium 135 mmol/L (135-145); Total Bilirubin <0.20 mg/dL (0.30-1.20); Total Protein 5.5 g/dL (6.2-8.2)
[2021-10-19 12:45] LABS: Basophils # (A) 0.01 X 10*3/uL (0.00-0.10); Basophils % (A) 0.1 %; Eosinophils # (A) 0 X 10*3/uL (0.04-0.35); Eosinophils % (A) 0 %; HCT 18.7 % (37.2-46.3); HGB 5.8 g/dL (12.0-15.0); Lymphocytes # (A) 0.85 X 10*3/uL (0.90-5.00); Lymphocytes % (A) 6.2 %; MCH 28.4 pg (27.0-32.0); MCV 91.7 fL (80.0-97.0); Mean Platelet Volume 12.2 fL (9.5-12.2); Monocytes # (A) 0.51 X 10*3/uL (0.20-1.00); Monocytes % (A) 3.7 %; Neutrophils # (A) 12.22 X 10*3/uL (1.80-7.70); Neutrophils % (A) 89.1 %; Platelet Count 156 X 10*3/uL (140-440); RBC 2.04 X 10*6/uL (4.10-5.20); RDW 15.2 % (11.5-14.5); WBC 13.71 X 10*3/uL (4.50-10.00)
--- NOTE | 2021-10-19 13:48 | P.PN ---
Subjective Progress Note Date: 10/19/21 Patient is a 75-year-old female with a known history of asthma, history of CVA/TIA with no residual weakness, diabetes type 2, hypertension, hyperlipidemia, rheumatoid arthritis on prednisone daily presents to ER with complaints of shortness of breath started around 4 AM this morning. Patient felt like chest congestion and denied any chest pain. Patient states that she is having mild cough and congestion for the past couple of days. Denied any worsening leg swelling than usual. Patient was having worsening symptoms and called EMS. Denied any fever or chills. No nausea vomiting or abdominal pain or diarrhea. No headache or dizziness or diaphoresis. He states that she is fully vaccinated for code 19 infection. Denied any loss of taste or smell sensation. Laboratory data on admission showed WBC 7.3 hemoglobin 8.6 and platelets 204 BUN 29 and creatinine 1.36 Magnesium 1.3 troponin 0.057 and 4.360 ProBNP 2540 and covid-19 PCR not detected. Chest x-ray showed a vague reticular nodular density throughout the right lung may reflect developing infiltrate. Correlate clinically. This is Dr. Shelby dictating I am assuming care of this patient is still [facility] were covering for me up to this point On 10/14/2021 patient was seen and examined on the telemetry floor she is alert and oriented 3 in no apparent distress there is no fever or chills no headache or dizziness no chest pain no shortness of breath she has occasional cough with minimal sputum production there is no nausea or vomiting no abdominal pain no diarrhea no blood in the stools no burning with urination no frequency or urgency and no hematuria. Patient had blood culture initially reported this morning as positive for gram-positive cocci, she was started on IV vancomycin, infectious disease consultation was requested, however subsequently, culture was reported as coag-negative gram-positive cocci possible contamination, IV vancomycin was discontinued. On 10/15/2021 patient was seen and examined on the telemetry floor she is alert and oriented 3 in no apparent distress she is complaining of cough and occasional wheezing otherwise she denies any complaints there is no fever or chills no headache or dizziness no chest pain no shortness of breath, there is no nausea or vomiting no abdominal pain no diarrhea no blood in the stools no burning with urination no frequency or urgency and no hematuria. At this time will continue with IV antibiotics and recheck chest x-ray in a.m. On 10/16/2021 patient alert and oriented 3. Patient currently maintained on IV antibiotics, IV steroids, IV Lasix and heparin drip. Patient reports some improvement. Patient stopping significant wheezing. Chest x-ray ordered. Patient denies chest pain. Patient denies nausea vomiting or diarrhea. Patient denies any urinary burning or frequency On 10/17/2021 patient was seen and examined in the ICU she is alert and oriented 3 in no apparent distress, currently this morning patient had sharp abdominal pain, A team were called. Computed tomography scan of the abdomen was done and revealed evidence of abdominal wall hematoma she was transferred to intensive care unit she had evidence of anemia she received 2 units of red blood cell transfusion IV heparin was discontinued. she is complaining of cough and occasional wheezing otherwise she denies any complaints there is no fever or chills no headache or dizziness no chest pain no shortness of breath, there is no nausea or vomiting no abdominal pain no diarrhea no blood in the stools no burning with urination no frequency or urgency and no hematuria. At this time will continue with IV antibiotics and recheck chest x-ray in a.m. On 10/18/2021 patient remains in the intensive care unit. Patient is alert and oriented 3. Hemoglobin stable at 7.7. Patient does report some abdominal pain with coughing. Creatinine elevated at 3.56 and bun 80. Nephrology services are following. Per nephrology patient will be started on gentle hydration will be given Lasix 80 mg daily. Urology services also consulted. She still complaining of some shortness breath with wheezing. Patient denies chest pain. Patient denies nausea vomiting or diarrhea. Patient denies any urinary burning or frequency On 10/19/2021 patient was seen and examined on the medical floor she is alert and oriented 3 in no apparent distress she is still complaining of cough and complaining of abdominal pain when she coughs, otherwise she denies any complaints at this time,there is no fever or chills no headache or dizziness no chest pain no shortness of breath, no nausea or vomiting no diarrhea no blood in the stools no burning with urination no frequency or urgency and no hematuria . Patient was maintained on IV heparin due to non-STEMI , she developed abdominal wall hematoma , hemoglobin today is down again at 5.8 , will transfuse 1 more unit of red blood cells , and recheck CBC , will follow in a.m. , physical therapy consult was placed Objective - Vital Signs Vital signs: Vital Signs Temp 98.6 F 10/19/21 08:01 Pulse 88 10/19/21 12:55 Resp 18 10/19/21 08:01 BP 103/47 10/19/21 08:01 Pulse Ox 95 10/19/21 08:01 Intake & Output 10/18/21 10/19/21 10/19/21 18:59 06:59 18:59 Intake Total 210 Output Total 79 370 Balance 131 -370 Weight 126.9 kg Intake: IV 210 .9 110 Sodium Chloride 0.9% 1, 100 000 ml @ 50 mls/hr IV . Q20H [facility] Rx#:[id number] Output: Urine 79 370 Other: Voiding Method Indwelling Catheter Indwelling Catheter Indwelling Catheter - Exam In general patient is alert and oriented x 3 in no distress HEENT head normocephalic and atraumatic Neck is supple no JVD no goiter no lymphadenopathy no carotid bruit Chest examination reveals scattered crackles bilaterally with wheezing Cardiac exam reveals regular heart sounds S1 and S2 no gallops no murmurs Abdomen is soft nontender no organomegaly with normal bowel sounds Extremity exam reveals no edema no cyanosis or clubbing Neurological examination reveals no gross focal deficits - Labs CBC & Chem 7: 10/19/21 07:32 10/19/21 07:39 Labs: Abnormal Lab Results - Last 24 Hours (Table) 10/17/21 10/18/21 10/18/21 Range/Units 01:08 14:00 16:19 WBC (4.50-10.00) X 10*3/uL RBC (4.10-5.20) X 10*6/uL Hgb (12.0-15.0) g/dL Hct (37.2-46.3) % MCHC (32.0-37.0) g/dL RDW (11.5-14.5) % Absolute Nucleated RBC (0.00-0.00) X 10*3/uL Immature Gran # (0.00-0.04) X 10*3/uL Neutrophils # (1.80-7.70) X 10*3/uL Lymphocytes # (0.90-5.00) X 10*3/uL Eosinophils # (0.04-0.35) X 10*3/uL NRBC/100 WBC Diff (0.0-0.0) /100 WBCS Sodium 134 L (137-145) mmol/L Carbon Dioxide 16 L (22-30) mmol/L BUN 89 H (7-17) mg/dL Creatinine 4.06 H (0.52-1.04) mg/dL Est GFR (CKD-EPI)AfAm (60.0-200.0) Est GFR (CKD-EPI)NonAf (60.0-200.0) BUN/Creatinine Ratio (12.00-20.00) Ratio Glucose 231 H (74-99) mg/dL POC Glucose (mg/dL) (75-99) mg/dL Calcium 7.5 L (8.4-10.2) mg/dL Total Bilirubin (0.30-1.20) mg/dL Total Protein (6.2-8.2) g/dL Albumin (3.8-4.9) g/dL Albumin/Globulin Ratio (1.60-3.17) g/dL Urine Appearance Turbid H (Clear) Urine Protein 2+ H (Negative) Urine Blood Large H (Negative) Ur Leukocyte Esterase Moderate H (Negative) Urine RBC >182 H (0-5) /hpf Urine WBC >182 H (0-5) /hpf Urine WBC Clumps Many H (None) /hpf Ur Squamous Epith Cells 6 H (0-4) /hpf Hyaline Casts 16 H (0-2) /lpf Urine Mucus Rare H (None) /hpf Crossmatch See Detail 10/18/21 10/18/21 10/18/21 Range/Units 16:28 20:53 20:53 WBC (4.50-10.00) X 10*3/uL RBC (4.10-5.20) X 10*6/uL Hgb (12.0-15.0) g/dL Hct (37.2-46.3) % MCHC (32.0-37.0) g/dL RDW (11.5-14.5) % Absolute Nucleated RBC (0.00-0.00) X 10*3/uL Immature Gran # (0.00-0.04) X 10*3/uL Neutrophils # (1.80-7.70) X 10*3/uL Lymphocytes # (0.90-5.00) X 10*3/uL Eosinophils # (0.04-0.35) X 10*3/uL NRBC/100 WBC Diff (0.0-0.0) /100 WBCS Sodium (137-145) mmol/L Carbon Dioxide (22-30) mmol/L BUN (7-17) mg/dL Creatinine (0.52-1.04) mg/dL Est GFR (CKD-EPI)AfAm (60.0-200.0) Est GFR (CKD-EPI)NonAf (60.0-200.0) BUN/Creatinine Ratio (12.00-20.00) Ratio Glucose (74-99) mg/dL POC Glucose (mg/dL) 251 H 228 H 228 H (75-99) mg/dL Calcium (8.4-10.2) mg/dL Total Bilirubin (0.30-1.20) mg/dL Total Protein (6.2-8.2) g/dL Albumin (3.8-4.9) g/dL Albumin/Globulin Ratio (1.60-3.17) g/dL Urine Appearance (Clear) Urine Protein (Negative) Urine Blood (Negative) Ur Leukocyte Esterase (Negative) Urine RBC (0-5) /hpf Urine WBC (0-5) /hpf Urine WBC Clumps (None) /hpf Ur Squamous Epith Cells (0-4) /hpf Hyaline Casts (0-2) /lpf Urine Mucus (None) /hpf Crossmatch 10/19/21 10/19/21 10/19/21 Range/Units 06:11 07:32 07:39 WBC 13.71 H (4.50-10.00) X 10*3/uL RBC 2.04 L (4.10-5.20) X 10*6/uL Hgb 5.8 L* (12.0-15.0) g/dL Hct 18.7 L* (37.2-46.3) % MCHC 31.0 L (32.0-37.0) g/dL RDW 15.2 H (11.5-14.5) % Absolute Nucleated RBC 0.27 H (0.00-0.00) X 10*3/uL Immature Gran # 0.12 H (0.00-0.04) X 10*3/uL Neutrophils # 12.22 H (1.80-7.70) X 10*3/uL Lymphocytes # 0.85 L (0.90-5.00) X 10*3/uL Eosinophils # 0 L (0.04-0.35) X 10*3/uL NRBC/100 WBC Diff 2.0 H (0.0-0.0) /100 WBCS Sodium (137-145) mmol/L Carbon Dioxide 18.2 L (22-30) mmol/L BUN 93.0 H (7-17) mg/dL Creatinine 4.0 H (0.52-1.04) mg/dL Est GFR (CKD-EPI)AfAm 11.8 L (60.0-200.0) Est GFR (CKD-EPI)NonAf 10.2 L (60.0-200.0) BUN/Creatinine Ratio 23.25 H (12.00-20.00) Ratio Glucose 196 H (74-99) mg/dL POC Glucose (mg/dL) 207 H (75-99) mg/dL Calcium 7.6 L (8.4-10.2) mg/dL Total Bilirubin <0.20 L (0.30-1.20) mg/dL Total Protein 5.5 L (6.2-8.2) g/dL Albumin 2.8 L (3.8-4.9) g/dL Albumin/Globulin Ratio 1.04 L (1.60-3.17) g/dL Urine Appearance (Clear) Urine Protein (Negative) Urine Blood (Negative) Ur Leukocyte Esterase (Negative) Urine RBC (0-5) /hpf Urine WBC (0-5) /hpf Urine WBC Clumps (None) /hpf Ur Squamous Epith Cells (0-4) /hpf Hyaline Casts (0-2) /lpf Urine Mucus (None) /hpf Crossmatch 10/19/21 Range/Units 12:00 WBC (4.50-10.00) X 10*3/uL RBC (4.10-5.20) X 10*6/uL Hgb (12.0-15.0) g/dL Hct (37.2-46.3) % MCHC (32.0-37.0) g/dL RDW (11.5-14.5) % Absolute Nucleated RBC (0.00-0.00) X 10*3/uL Immature Gran # (0.00-0.04) X 10*3/uL Neutrophils # (1.80-7.70) X 10*3/uL Lymphocytes # (0.90-5.00) X 10*3/uL Eosinophils # (0.04-0.35) X 10*3/uL NRBC/100 WBC Diff (0.0-0.0) /100 WBCS Sodium (137-145) mmol/L Carbon Dioxide (22-30) mmol/L BUN (7-17) mg/dL Creatinine (0.52-1.04) mg/dL Est GFR (CKD-EPI)AfAm (60.0-200.0) Est GFR (CKD-EPI)NonAf (60.0-200.0) BUN/Creatinine Ratio (12.00-20.00) Ratio Glucose (74-99) mg/dL POC Glucose (mg/dL) 194 H (75-99) mg/dL Calcium (8.4-10.2) mg/dL Total Bilirubin (0.30-1.20) mg/dL Total Protein (6.2-8.2) g/dL Albumin (3.8-4.9) g/dL Albumin/Globulin Ratio (1.60-3.17) g/dL Urine Appearance (Clear) Urine Protein (Negative) Urine Blood (Negative) Ur Leukocyte Esterase (Negative) Urine RBC (0-5) /hpf Urine WBC (0-5) /hpf Urine WBC Clumps (None) /hpf Ur Squamous Epith Cells (0-4) /hpf Hyaline Casts (0-2) /lpf Urine Mucus (None) /hpf Crossmatch Microbiology - Last 24 Hours (Table) 10/13/21 09:58 Blood Culture - Final Blood No Growth after 144 hours Assessment and Plan Plan: 1. Acute non-ST elevated SD elevated troponin level. Patient started on IV heparin cardiology consultation requested 2. Acute CHF exacerbation, with elevated BNP, 2-D echo completed showing an EF of 55-60%. Patient maintained on IV Lasix 3. Acute asthma exacerbation, patient has known history of asthma, she had severe wheezing on presentation which is improving 4. Right lower lobe pneumonia, maintained on IV Rocephin and IV Zithromax, sputum culture ordered. 5. Acute kidney injury likely prerenal with creatinine level I.36 on admission. 6. hypomagnesemia 1.3 on admission , replaced. 7. Underlying history of Hypertension 8. Hyperlipidemia 9. Rheumatoid arthritis on prednisone 5 mg daily 10. Normocytic anemia/anemia of chronic disease 11. 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 12. Morbid obesity BMI 40.2 13. Positive blood culture. Infectious disease services are following likely contamination 14. Abdominal wall hematoma and anemia, IV heparin was discontinued patient transferred to intensive care unit and received 2 units of red blood cell transfusion 15. Acute kidney injury secondary to ATN secondary to acute blood loss anemia. Oliguric. Neurology services have been consulted. Nephrology services are following. Lasix 80 mg IV once ordered today per nephrology. Critical care services, cardiology services, nephrology services, infectious disease services, neurology services and surgical services are following Continue IV antibiotics Continue to monitor hemoglobin closely repeat labs ordered
--- NOTE | 2021-10-19 15:15 | XR ---
EXAMINATION TYPE: XR chest 1V portable DATE OF EXAM: 10/19/2021 COMPARISON: 10/18/2021 HISTORY: Short of breath TECHNIQUE: FINDINGS: There is no heart failure nor confluent pneumonic infiltrate. There is poor inspiration. Th ere is mild subsegmental atelectasis at the lung bases. There is right central venous catheter with t ip in the superior vena cava. IMPRESSION: Mild subsegmental atelectasis without change. Normal heart. No heart failure seen.
[2021-10-19 16:57] LABS: Glucose,Whole Blood 141 mg/dL (75-99)
--- NOTE | 2021-10-19 17:20 | P.PN ---
Subjective Progress Note Date: 10/19/21 Principal diagnosis: Acute non-ST elevation myocardial infarction This is a 75-year-old -[place] female, known history of asthma, hypertension, dyslipidemia, patient was admitted initially on 10/13/21, with chief complaint of chest discomfort. Patient was seen by cardiology on consultation, patient was felt to have hypertensive emergency, non-ST elevation myocardial infarction, anemia, and renal failure. Patient was placed on heparin, her beta blockers were discontinued because of severe expiratory wheezing on admission. Although it was felt that the patient may have cardiac asthma and she was treated with Lasix for interstitial edema. Patient was supposed to undergo cardiac catheterization today, and she was placed on heparin based on the recommendation by cardiology. Last night, the rapid response team was called to see the patient because of drop in her blood pressure and she was tachycardic. She was also noted to be lethargic, and was noted to be quite anemic. Patient was noted to have large abdominal wall hematoma based on the CT of the abdomen and pelvis it showed a large extraperitoneal abdominal wall hemorrhage measuring 7.65065 cm I was notified about this patient from the rapid response team, and considering the patient was hypotensive, she received 2 units of packed RBCs, I recommended immediate transfer to the ICU I also recommended reversing her heparin with protamine sulfate, and I recommended a stat surgical consultation. Patient was seen on consultation by Dr. Murphy for abdominal wall hematoma, the recommendation was mostly abdominal binder, reverse heparin, no need for surgical intervention at this point. The rec ommendation was mostly conservative measures. I saw this patient in the ICU today, she seems to be hemodynamically stable. Not in any distress, hemoglobin is now 9.2. She already received a total of 2 units of packed RBCs since last night. Her urine output is marginal and I recommended 500 mL of fluid followed by Lasix if the urine output does not improve. Her echocardiogram on admission showed good LV function, and there was moderate concentric LVH. Reevaluated today on 10/18/2021, patient remains in the ICU, patient is developing acute renal failure, she is developing hematuria, she received a total of 2 units of packed RBCs, and her last hemoglobin today was 7.7. She is to be seen by nephrology and she may undergo dialysis. She is also to be seen by urology for hematuria which is gross hematuria. WBC count today is 15.5 hemoglobin is 7.7. Electrolytes are normal however bicarb is 17 BUN is up to 80 creatinine is 3.56. Lactic acid today is 1.8. Chest x-ray is showing no acute pulmonary process, she had a PICC line placed yesterday uneventfully. She does have a small left pleural effusion. Patient is oliguric. And she has developed significant metabolic acidosis with acute kidney injury and lactic acidosis. Pulmonary-bryant, the patient is on 3 L nasal cannula, does not seem to be in any respiratory distress. Reevaluated today on 10/19/2021, patient was transferred out of the ICU to the cardiac floor, she continues to do poorly. She is being followed by many consultants. Patient has minimal shortness of breath, remains on nasal cannula, she has chest x-ray done today and she had mild subsegmental atelectasis, no evidence of heart failure. Patient has minimal cough and wheezing. She is being considered for hemodialysis. Patient is not in any distress, she developed complications secondary to heparin infusion for presumptive non-ST elevation myocardial infarction she went on to develop abdominal wall hematoma, blood loss anemia, acute kidney injury, oliguria, hematuria, and she required so far a total of 3 units of packed RBCs. Her hemoglobin this morning was 5.8. This is being addressed by the admitting physician and other consultants. Objective - Vital Signs Vital signs: Vital Signs Temp 98.1 F 10/19/21 17:03 Pulse 81 10/19/21 17:03 Resp 18 10/19/21 17:03 BP 147/84 10/19/21 17:03 Pulse Ox 93 L 10/19/21 17:03 Intake & Output 10/18/21 10/19/21 10/19/21 18:59 06:59 18:59 Intake Total 210 310 Output Total 79 370 Balance 131 -370 310 Weight 126.9 kg Intake: IV 210 .9 110 Sodium Chloride 0.9% 1, 100 000 ml @ 50 mls/hr IV . Q20H FORMERLY [facility], 1928–1983 Rx#:[id number] Blood Product 310 Rc As-1 Unit 310 [id number] Output: Urine 79 370 Other: Voiding Method Indwelling Catheter Indwelling Catheter Indwelling Catheter - Exam Physical Exam: Revealed a 75-year-old -[place] female, obese, in no distress. Patient is on 3 L nasal cannula with O2 saturation of around percent. Head: Atraumatic, normocephalic. HEENT:[Neck is supple.] [No neck masses.] [No thyromegaly.] [No JVD.] Chest: [Symmetrical chest expansion, rhonchi on forced expiratory maneuver noted. Cardiac Exam: [Normal S1 and S2, no S3 gallop, no murmur.] Abdomen: [Obese, Soft, nontender, no megaly, no rebound, no guarding, normal bowel sounds.] Abdominal binder is noted. Extremities: [No clubbing, no edema, no cyanosis.] Neurological Exam: [No focal neurologic deficit.] Alert oriented 3. Psychiatric: Normal mood, affect and normal mental status examination. Skin: No rashes. - Labs CBC & Chem 7: 10/19/21 07:32 10/19/21 07:39 Labs: Abnormal Lab Results - Last 24 Hours (Table) 10/17/21 10/18/21 10/18/21 Range/Units 01:08 20:53 20:53 WBC (4.50-10.00) X 10*3/uL RBC (4.10-5.20) X 10*6/uL Hgb (12.0-15.0) g/dL Hct (37.2-46.3) % MCHC (32.0-37.0) g/dL RDW (11.5-14.5) % Absolute Nucleated RBC (0.00-0.00) X 10*3/uL Immature Gran # (0.00-0.04) X 10*3/uL Neutrophils # (1.80-7.70) X 10*3/uL Lymphocytes # (0.90-5.00) X 10*3/uL Eosinophils # (0.04-0.35) X 10*3/uL NRBC/100 WBC Diff (0.0-0.0) /100 WBCS Carbon Dioxide (20.0-27.5) mmol/L BUN (9.0-27.0) mg/dL Creatinine (0.6-1.5) mg/dL Est GFR (CKD-EPI)AfAm (60.0-200.0) Est GFR (CKD-EPI)NonAf (60.0-200.0) BUN/Creatinine Ratio (12.00-20.00) Ratio Glucose (70-110) mg/dL POC Glucose (mg/dL) 228 H 228 H (75-99) mg/dL Calcium (8.7-10.3) mg/dL Total Bilirubin (0.30-1.20) mg/dL Total Protein (6.2-8.2) g/dL Albumin (3.8-4.9) g/dL Albumin/Globulin Ratio (1.60-3.17) g/dL Crossmatch See Detail 10/19/21 10/19/21 10/19/21 Range/Units 06:11 07:32 07:39 WBC 13.71 H (4.50-10.00) X 10*3/uL RBC 2.04 L (4.10-5.20) X 10*6/uL Hgb 5.8 L* (12.0-15.0) g/dL Hct 18.7 L* (37.2-46.3) % MCHC 31.0 L (32.0-37.0) g/dL RDW 15.2 H (11.5-14.5) % Absolute Nucleated RBC 0.27 H (0.00-0.00) X 10*3/uL Immature Gran # 0.12 H (0.00-0.04) X 10*3/uL Neutrophils # 12.22 H (1.80-7.70) X 10*3/uL Lymphocytes # 0.85 L (0.90-5.00) X 10*3/uL Eosinophils # 0 L (0.04-0.35) X 10*3/uL NRBC/100 WBC Diff 2.0 H (0.0-0.0) /100 WBCS Carbon Dioxide 18.2 L (20.0-27.5) mmol/L BUN 93.0 H (9.0-27.0) mg/dL Creatinine 4.0 H (0.6-1.5) mg/dL Est GFR (CKD-EPI)AfAm 11.8 L (60.0-200.0) Est GFR (CKD-EPI)NonAf 10.2 L (60.0-200.0) BUN/Creatinine Ratio 23.25 H (12.00-20.00) Ratio Glucose 196 H (70-110) mg/dL POC Glucose (mg/dL) 207 H (75-99) mg/dL Calcium 7.6 L (8.7-10.3) mg/dL Total Bilirubin <0.20 L (0.30-1.20) mg/dL Total Protein 5.5 L (6.2-8.2) g/dL Albumin 2.8 L (3.8-4.9) g/dL Albumin/Globulin Ratio 1.04 L (1.60-3.17) g/dL Crossmatch 10/19/21 10/19/21 Range/Units 12:00 16:54 WBC (4.50-10.00) X 10*3/uL RBC (4.10-5.20) X 10*6/uL Hgb (12.0-15.0) g/dL Hct (37.2-46.3) % MCHC (32.0-37.0) g/dL RDW (11.5-14.5) % Absolute Nucleated RBC (0.00-0.00) X 10*3/uL Immature Gran # (0.00-0.04) X 10*3/uL Neutrophils # (1.80-7.70) X 10*3/uL Lymphocytes # (0.90-5.00) X 10*3/uL Eosinophils # (0.04-0.35) X 10*3/uL NRBC/100 WBC Diff (0.0-0.0) /100 WBCS Carbon Dioxide (20.0-27.5) mmol/L BUN (9.0-27.0) mg/dL Creatinine (0.6-1.5) mg/dL Est GFR (CKD-EPI)AfAm (60.0-200.0) Est GFR (CKD-EPI)NonAf (60.0-200.0) BUN/Creatinine Ratio (12.00-20.00) Ratio Glucose (70-110) mg/dL POC Glucose (mg/dL) 194 H 141 H (75-99) mg/dL Calcium (8.7-10.3) mg/dL Total Bilirubin (0.30-1.20) mg/dL Total Protein (6.2-8.2) g/dL Albumin (3.8-4.9) g/dL Albumin/Globulin Ratio (1.60-3.17) g/dL Crossmatch Microbiology - Last 24 Hours (Table) 10/13/21 09:58 Blood Culture - Final Blood No Growth after 144 hours Assessment and Plan Assessment: Impression: Acute blood loss anemia, secondary to heparin, patient developed abdominal wall hematoma, status post 3 units of packed RBC transfusion. Acute kidney injury with oliguria and hematuria being addressed by nephrology and urology. Acute on chronic diastolic congestive heart failure Hypertensive emergency on presentation according to the notes by cardiology. Non-ST elevation myocardial infarction History of TIA History of hypertension History of dyslipidemia Recommendation: No more heparin at this point. Continue abdominal binder. Patient is being followed by many consultants including nephrology cardiology and urology Considering her worsening renal status may need hemodialysis. We'll sign off for now and follow up on a when necessary basis for Prognosis is relatively guarded Time with Patient: Less than 30
[2021-10-19] MEDS: MONTELUKAST 10 MG TAB PO SCH (20:38)
[2021-10-19 20:46] LABS: Anisocytosis Slight; HCT 21.9 % (34.0-46.0); HGB 7.1 gm/dL (11.4-16.0); Hypochromasia Slight; MCH 29.8 pg (25.0-35.0); MCHC 32.6 g/dL (31.0-37.0); MCV 91.2 fL (80.0-100.0); Mean Platelet Volume 9.1; Platelet Count 155 k/uL (150-450); RDW 16.5 % (11.5-15.5)
[2021-10-19 21:48] LABS: Band Neutrophils % 3 %; Neutrophils % (M) 91 %; Nucleated Red Blood Cells 2 /100 WBC (0-0); Total Cells Counted 200
[2021-10-19 21:49] LABS: Lymphocytes # (M) 0.44 k/uL (1.0-4.8); Monocytes # (M) 0.33 k/uL (0-1.0); Polychromasia Present
[2021-10-20 00:04] LABS: Glucose,Whole Blood 180 mg/dL (75-99)
[2021-10-20] MEDS: INSULIN ASPART (NovoLOG) 100 UNIT/ML VIAL SQ SCH ×4 (00:12→16:43)
[2021-10-20] MEDS: methylPREDNISolone SOD SUCCI 125 MG/2 ML VIAL IV SCH ×4 (00:12→16:42)
[2021-10-20] MEDS: DEXTROSE 5% IN WATER 1,000 ML with SODIUM BICARB (1 MEQ/ML) 150 ML IV SCH (01:30)
--- NOTE | 2021-10-20 01:30 | PN ---
PROGRESS NOTE DATE OF SERVICE: 10/19/2021. REASON FOR FOLLOW UP: Urinary tract infection. INTERVAL HISTORY: Patient is afebrile. The patient is breathing slightly comfortably. Denies any chest pain. She did have a cough, not bringing any sputum. No nausea, vomiting. No abdominal pain. No diarrhea. PHYSICAL EXAMINATION: Blood pressure 147/84 with a pulse of 89, temperature 98.1. She is 93% on 4 L nasal cannula. General description is an elderly female lying in bed in no distress. Respiratory system: Unlabored breathing, clear to auscultation anteriorly. Heart S1, S2. Regular rate and rhythm. Abdomen soft, no tenderness. LABS: Hemoglobin 7.8, white count 11.0, creatinine 4.0. DIAGNOSTIC IMPRESSION AND PLAN: 1. Patient with positive blood culture, Staph epi likely contaminant. The culture has been negative. 2. Patient with urinary tract infection with elevated white count, covered with Rocephin to continue while waiting for the culture to finalize and monitor clinical course closely. MMODL / IJN: [id number] /
[2021-10-20 06:11] LABS: Glucose,Whole Blood 99 mg/dL (75-99)
[2021-10-20] MEDS: LEVOTHYROXINE 25 MCG TAB PO SCH (06:12)
[2021-10-20] MEDS: IPRATROPIUM-ALBUTEROL 3 ML NEB INHALATION PRN ×4 (07:57→20:07)
[2021-10-20] MEDS: EZETIMIBE 10 MG TAB PO SCH (08:26)
[2021-10-20] MEDS: PANTOPRAZOLE 40 MG/10 ML VIAL IVP SCH (08:26)
[2021-10-20] MEDS: DOCUSATE 100 MG CAP PO SCH ×2 (08:26→20:50)
[2021-10-20] MEDS: OXYBUTYNIN 10 MG TAB.ER.24 PO SCH (08:26)
[2021-10-20] MEDS: SODIUM BICARBONATE TAB 650 MG TAB PO SCH ×2 (08:28→20:50)
[2021-10-20] MEDS: glipiZIDE 5 MG TAB PO SCH ×3 (08:28→18:50)
[2021-10-20] MEDS: amLODIPine 10 MG TAB PO SCH (08:28)
[2021-10-20] MEDS: prednisoLONE ACETATE 1% OPHTH DROPS 5 ML BTL BOTH EYES SCH ×4 (08:28→20:51)
[2021-10-20] MEDS: ACETAMINOPHEN TAB 500 MG TAB PO PRN (08:28)
--- NOTE | 2021-10-20 08:57 | P.PN ---
Subjective Progress Note Date: 10/20/21 Principal diagnosis: This is a 75-year-old female seen in consultation because of acute kidney injury deemed to be secondary to blood loss minimal admission hemoglobin of 5.9 and an abdominal wall hematoma. Has been transfused. Creatinine was 1.36 on admission and went up to 4 Also had a gap and non-gap acidosis with bicarb of 16 and a gap of 14. Patient is on Solu-Medrol 60 mg IV every 6 hours started on 10/13/2021, therefore she is covered for any Possibility of acute interstitial nephritis considered further is one blood culture positive for coagulase negative staph on 10/13/2021. But there is no other signs of sepsis. Urine is full of RBCs and WBCs, although cultures have not been done. She has a Cardoza catheter with somewhat bloody urine Urinalysis shows 2+ protein, urine protein to creatinine ratio is pending a chest x-ray shows no acute pulmonary process Blood pressure is stable in the 1:30 systolic to 160 systolic range, afebrile, urine output is documented at 400 mL Subjective patient is somewhat short of breath on nasal cannula oxygen. Appetit e is poor no nausea vomiting patient is constipated. She is awake and alert Objective - Vital Signs Vital signs: Vital Signs Temp 99.1 F 10/20/21 08:25 Pulse 80 10/20/21 08:25 Resp 20 10/20/21 08:25 BP 161/69 10/20/21 08:25 Pulse Ox 98 10/20/21 08:25 Intake & Output 10/19/21 10/20/21 10/20/21 18:59 06:59 18:59 Intake Total 310 Output Total 400 Balance -90 Weight 126.5 kg Intake: Blood Product 310 Rc As-1 Unit 310 [id number] Output: Urine 400 Other: Voiding Method Indwelling Catheter Indwelling Catheter # Voids 3 On examination obese patient, sitting in bed on oxygen via nasal cannula HEENT exam no JVP neck is supple no facial asymmetry Lungs are clear to auscultation with an occasional end expiratory wheezing. Good air entry bilaterally Heart sounds unremarkable for any murmur rub gallop Abdomen soft slightly protuberant Extremity exam was mild edema Neurologically awake alert oriented no asterixis - Labs CBC & Chem 7: 10/19/21 19:24 10/19/21 07:39 Labs: Abnormal Lab Results - Last 24 Hours (Table) 10/17/21 10/19/21 10/19/21 Range/Units 01:08 07:32 07:39 WBC 13.71 H (4.50-10.00) X 10*3/uL RBC 2.04 L (4.10-5.20) X 10*6/uL Hgb 5.8 L* (12.0-15.0) g/dL Hct 18.7 L* (37.2-46.3) % MCHC 31.0 L (32.0-37.0) g/dL RDW 15.2 H (11.5-14.5) % Absolute Nucleated RBC 0.27 H (0.00-0.00) X 10*3/uL Immature Gran # 0.12 H (0.00-0.04) X 10*3/uL Neutrophils # 12.22 H (1.80-7.70) X 10*3/uL Neutrophils # (Manual) (1.3-7.7) k/uL Lymphocytes # 0.85 L (0.90-5.00) X 10*3/uL Lymphocytes # (Manual) (1.0-4.8) k/uL Eosinophils # 0 L (0.04-0.35) X 10*3/uL Nucleated RBCs (0-0) /100 WBC NRBC/100 WBC Diff 2.0 H (0.0-0.0) /100 WBCS Carbon Dioxide 18.2 L (20.0-27.5) mmol/L BUN 93.0 H (9.0-27.0) mg/dL Creatinine 4.0 H (0.6-1.5) mg/dL Est GFR (CKD-EPI)AfAm 11.8 L (60.0-200.0) Est GFR (CKD-EPI)NonAf 10.2 L (60.0-200.0) BUN/Creatinine Ratio 23.25 H (12.00-20.00) Ratio Glucose 196 H (70-110) mg/dL POC Glucose (mg/dL) (75-99) mg/dL Calcium 7.6 L (8.7-10.3) mg/dL Total Bilirubin <0.20 L (0.30-1.20) mg/dL Total Protein 5.5 L (6.2-8.2) g/dL Albumin 2.8 L (3.8-4.9) g/dL Albumin/Globulin Ratio 1.04 L (1.60-3.17) g/dL Crossmatch See Detail 10/19/21 10/19/21 10/19/21 Range/Units 12:00 16:54 19:24 WBC 11.0 H (4.50-10.00) X 10*3/uL RBC 2.40 L (4.10-5.20) X 10*6/uL Hgb 7.1 L (12.0-15.0) g/dL Hct 21.9 L (37.2-46.3) % MCHC (32.0-37.0) g/dL RDW 16.5 H (11.5-14.5) % Absolute Nucleated RBC (0.00-0.00) X 10*3/uL Immature Gran # (0.00-0.04) X 10*3/uL Neutrophils # (1.80-7.70) X 10*3/uL Neutrophils # (Manual) 10.30 H (1.3-7.7) k/uL Lymphocytes # (0.90-5.00) X 10*3/uL Lymphocytes # (Manual) 0.44 L (1.0-4.8) k/uL Eosinophils # (0.04-0.35) X 10*3/uL Nucleated RBCs 2 H (0-0) /100 WBC NRBC/100 WBC Diff (0.0-0.0) /100 WBCS Carbon Dioxide (20.0-27.5) mmol/L BUN (9.0-27.0) mg/dL Creatinine (0.6-1.5) mg/dL Est GFR (CKD-EPI)AfAm (60.0-200.0) Est GFR (CKD-EPI)NonAf (60.0-200.0) BUN/Creatinine Ratio (12.00-20.00) Ratio Glucose (70-110) mg/dL POC Glucose (mg/dL) 194 H 141 H (75-99) mg/dL Calcium (8.7-10.3) mg/dL Total Bilirubin (0.30-1.20) mg/dL Total Protein (6.2-8.2) g/dL Albumin (3.8-4.9) g/dL Albumin/Globulin Ratio (1.60-3.17) g/dL Crossmatch 10/20/21 Range/Units 00:02 WBC (4.50-10.00) X 10*3/uL RBC (4.10-5.20) X 10*6/uL Hgb (12.0-15.0) g/dL Hct (37.2-46.3) % MCHC (32.0-37.0) g/dL RDW (11.5-14.5) % Absolute Nucleated RBC (0.00-0.00) X 10*3/uL Immature Gran # (0.00-0.04) X 10*3/uL Neutrophils # (1.80-7.70) X 10*3/uL Neutrophils # (Manual) (1.3-7.7) k/uL Lymphocytes # (0.90-5.00) X 10*3/uL Lymphocytes # (Manual) (1.0-4.8) k/uL Eosinophils # (0.04-0.35) X 10*3/uL Nucleated RBCs (0-0) /100 WBC NRBC/100 WBC Diff (0.0-0.0) /100 WBCS Carbon Dioxide (20.0-27.5) mmol/L BUN (9.0-27.0) mg/dL Creatinine (0.6-1.5) mg/dL Est GFR (CKD-EPI)AfAm (60.0-200.0) Est GFR (CKD-EPI)NonAf (60.0-200.0) BUN/Creatinine Ratio (12.00-20.00) Ratio Glucose (70-110) mg/dL POC Glucose (mg/dL) 180 H (75-99) mg/dL Calcium (8.7-10.3) mg/dL Total Bilirubin (0.30-1.20) mg/dL Total Protein (6.2-8.2) g/dL Albumin (3.8-4.9) g/dL Albumin/Globulin Ratio (1.60-3.17) g/dL Crossmatch Microbiology - Last 24 Hours (Table) 10/13/21 09:58 Blood Culture - Final Blood No Growth after 144 hours Assessment and Plan Assessment: Impression 1. Acute kidney injury prerenal, with significant anemia of 5.9, creatinine w ent up from 1.36 to 4.0 yesterday. Urine output is marginal. Patient is on Solu-Medrol for any possibility of acute interstitial nephritis. No evidence of uremia except for poor appetite. Patient may need to go on dialysis by tomorrow if she does not improve. She'll also need a kidney biopsy 2. Chronic kidney disease stage III with a baseline creatinine of 1.3 with microalbuminuria 168 mg/g of creatinine on 820 04/02/2020, etiology is nephrosclerosis and diabetic nephropathy 3. Urinalysis is significant for RBCs and WBCs, rule out acute interstitial nephritis 4. Iron deficiency 13% saturation on 10/14/2021 5. Anemia, hemoglobin went down from 8.7-7.1 yesterday no obvious bleeding 6. Gap and non-gap acidosis from acute kidney injury. Bicarbonate improved from 16-18 as of yesterday lasted are pending Recommendation 1. Hold the Lasix and continue IV fluids currently on D5W with 3 A of bicarb at 50 an hour. 2. Avoid nephrotoxic medications, had one dose of vancomycin possibly with a level of 7.4 on 10/16/2021 3. Consult vascular for possibility of requiring access with a permacath for dialysis
--- NOTE | 2021-10-20 10:19 | P.GSCN ---
History of Present Illness History of present illness: 75-year-old white female, patient has a history of hematoma most likely abdominal wall hematoma by CAT scan Eschen or significant blood loss take the kidney disease. In has increased from 1.362 3.56 I was consulted for possible placement of a dialysis catheter. Patient has history of diabetes hypertension and some a Neck examination neck is supple. Chest clear auscultation crackles or wheezing lung bases bilateral abdomen patient is a abdominal binder no peritoneal sign noted Femorals are present 1+ plan i is possible placement of a dialysis catheter we will follow with you Past Medical History Past Medical History: Asthma, CVA/TIA, Diabetes Mellitus, Hyperlipidemia, Hypertension, Rheumatoid Arthritis (RA) Additional Past Medical History / Comment(s): TIA in 2016 History of Any Multi-Drug Resistant Organisms: None Reported Past Surgical History: Appendectomy, Tubal Ligation Additional Past Surgical History / Comment(s): Colonoscopy, cataracts surg Past Anesthesia/Blood Transfusion Reactions: No Reported Reaction Past Psychological History: No Psychological Hx Reported Smoking Status: Never smoker Past Alcohol Use History: None Reported Past Drug Use History: None Reported - Past Family History Father Family Medical History: Cancer, Congestive Heart Failure (CHF) Additional Family Medical History / Comment(s): colon cancer Mother Family Medical History: Rheumatoid Arthritis (RA) Medications and Allergies Home Medications Medication Instructions Recorded Confirmed Type Clopidogrel [Plavix] 75 mg PO DAILY 05/14/19 10/13/21 History Metoprolol Succinate (ER) [Toprol 25 mg PO DAILY 05/14/19 10/13/21 History XL] lisinopriL 40 mg PO DAILY 05/14/19 10/13/21 History Montelukast [Singulair] 10 mg PO HS #30 tab 05/24/19 10/13/21 Rx Albuterol Inhaler [Ventolin Hfa 1 - 2 puff INHALATION RT-QID PRN 06/14/20 10/13/21 History Inhaler] Tolterodine ER [Detrol LA] 4 mg PO DAILY 06/14/20 10/13/21 History Ferrous Sulfate [Iron (65 MG 325 mg PO DAILY 02/16/21 10/13/21 History Elemental)] Acetaminophen Tab [Tylenol Tab] 1,000 mg PO Q6HR PRN 10/13/21 10/13/21 History Cholecalciferol [Vitamin D3 (25 50 mcg PO DAILY 10/13/21 10/13/21 History Mcg = 1000 Iu)] Ezetimibe [Zetia] 10 mg PO DAILY 10/13/21 10/13/21 History Levothyroxine Sodium [Synthroid] 25 mcg PO DAILY 10/13/21 10/13/21 History glipiZIDE [Glucotrol] 5 mg PO TID 10/13/21 10/13/21 History guaiFENesin [Diabetic Tussin] 200 mg PO Q6H PRN 10/13/21 10/13/21 History predniSONE 5 mg PO DAILY 10/13/21 10/13/21 History prednisoLONE ACETATE 1% OPHTH 1 drops BOTH EYES QID 10/13/21 10/13/21 History [Pred Forte 1%] Allergies Allergy/AdvReac Type Severity Reaction Status Date / Time atorvastatin [From Lipitor] AdvReac CRAMPS Verified 10/13/21 10:53 latex AdvReac Itching Verified 10/13/21 10:53 Surgical - Exam Vital Signs Pulse 112 H 10/13/21 09:59 Results - Labs 10/19/21 19:24 10/19/21 07:39 Abnormal Lab Results - Last 24 Hours (Table) 10/17/21 10/19/21 10/19/21 Range/Units 01:08 07:32 07:39 WBC 13.71 H (4.50-10.00) X 10*3/uL RBC 2.04 L (4.10-5.20) X 10*6/uL Hgb 5.8 L* (12.0-15.0) g/dL Hct 18.7 L* (37.2-46.3) % MCHC 31.0 L (32.0-37.0) g/dL RDW 15.2 H (11.5-14.5) % Absolute Nucleated RBC 0.27 H (0.00-0.00) X 10*3/uL Immature Gran # 0.12 H (0.00-0.04) X 10*3/uL Neutrophils # 12.22 H (1.80-7.70) X 10*3/uL Neutrophils # (Manual) (1.3-7.7) k/uL Lymphocytes # 0.85 L (0.90-5.00) X 10*3/uL Lymphocytes # (Manual) (1.0-4.8) k/uL Eosinophils # 0 L (0.04-0.35) X 10*3/uL Nucleated RBCs (0-0) /100 WBC NRBC/100 WBC Diff 2.0 H (0.0-0.0) /100 WBCS Carbon Dioxide 18.2 L (20.0-27.5) mmol/L BUN 93.0 H (9.0-27.0) mg/dL Creatinine 4.0 H (0.6-1.5) mg/dL Est GFR (CKD-EPI)AfAm 11.8 L (60.0-200.0) Est GFR (CKD-EPI)NonAf 10.2 L (60.0-200.0) BUN/Creatinine Ratio 23.25 H (12.00-20.00) Ratio Glucose 196 H (70-110) mg/dL POC Glucose (mg/dL) (75-99) mg/dL Calcium 7.6 L (8.7-10.3) mg/dL Total Bilirubin <0.20 L (0.30-1.20) mg/dL Total Protein 5.5 L (6.2-8.2) g/dL Albumin 2.8 L (3.8-4.9) g/dL Albumin/Globulin Ratio 1.04 L (1.60-3.17) g/dL Crossmatch See Detail 10/19/21 10/19/21 10/19/21 Range/Units 12:00 16:54 19:24 WBC 11.0 H (4.50-10.00) X 10*3/uL RBC 2.40 L (4.10-5.20) X 10*6/uL Hgb 7.1 L (12.0-15.0) g/dL Hct 21.9 L (37.2-46.3) % MCHC (32.0-37.0) g/dL RDW 16.5 H (11.5-14.5) % Absolute Nucleated RBC (0.00-0.00) X 10*3/uL Immature Gran # (0.00-0.04) X 10*3/uL Neutrophils # (1.80-7.70) X 10*3/uL Neutrophils # (Manual) 10.30 H (1.3-7.7) k/uL Lymphocytes # (0.90-5.00) X 10*3/uL Lymphocytes # (Manual) 0.44 L (1.0-4.8) k/uL Eosinophils # (0.04-0.35) X 10*3/uL Nucleated RBCs 2 H (0-0) /100 WBC NRBC/100 WBC Diff (0.0-0.0) /100 WBCS Carbon Dioxide (20.0-27.5) mmol/L BUN (9.0-27.0) mg/dL Creatinine (0.6-1.5) mg/dL Est GFR (CKD-EPI)AfAm (60.0-200.0) Est GFR (CKD-EPI)NonAf (60.0-200.0) BUN/Creatinine Ratio (12.00-20.00) Ratio Glucose (70-110) mg/dL POC Glucose (mg/dL) 194 H 141 H (75-99) mg/dL Calcium (8.7-10.3) mg/dL Total Bilirubin (0.30-1.20) mg/dL Total Protein (6.2-8.2) g/dL Albumin (3.8-4.9) g/dL Albumin/Globulin Ratio (1.60-3.17) g/dL Crossmatch 10/20/21 Range/Units 00:02 WBC (4.50-10.00) X 10*3/uL RBC (4.10-5.20) X 10*6/uL Hgb (12.0-15.0) g/dL Hct (37.2-46.3) % MCHC (32.0-37.0) g/dL RDW (11.5-14.5) % Absolute Nucleated RBC (0.00-0.00) X 10*3/uL Immature Gran # (0.00-0.04) X 10*3/uL Neutrophils # (1.80-7.70) X 10*3/uL Neutrophils # (Manual) (1.3-7.7) k/uL Lymphocytes # (0.90-5.00) X 10*3/uL Lymphocytes # (Manual) (1.0-4.8) k/uL Eosinophils # (0.04-0.35) X 10*3/uL Nucleated RBCs (0-0) /100 WBC NRBC/100 WBC Diff (0.0-0.0) /100 WBCS Carbon Dioxide (20.0-27.5) mmol/L BUN (9.0-27.0) mg/dL Creatinine (0.6-1.5) mg/dL Est GFR (CKD-EPI)AfAm (60.0-200.0) Est GFR (CKD-EPI)NonAf (60.0-200.0) BUN/Creatinine Ratio (12.00-20.00) Ratio Glucose (70-110) mg/dL POC Glucose (mg/dL) 180 H (75-99) mg/dL Calcium (8.7-10.3) mg/dL Total Bilirubin (0.30-1.20) mg/dL Total Protein (6.2-8.2) g/dL Albumin (3.8-4.9) g/dL Albumin/Globulin Ratio (1.60-3.17) g/dL Crossmatch Microbiology - Last 24 Hours (Table) 10/13/21 09:58 Blood Culture - Final Blood No Growth after 144 hours Diabetes panel 10/19/21 Range/Units 07:39 Sodium 135 (135-145) mmol/L Potassium 5.0 (3.5-5.5) mmol/L Chloride 99 (96-109) mmol/L Carbon Dioxide 18.2 L (20.0-27.5) mmol/L BUN 93.0 H (9.0-27.0) mg/dL Creatinine 4.0 H (0.6-1.5) mg/dL Glucose 196 H (70-110) mg/dL Calcium 7.6 L (8.7-10.3) mg/dL AST 16 (13-35) U/L ALT 20 (8-44) U/L Alkaline Phosphatase 62 (41-126) U/L Total Protein 5.5 L (6.2-8.2) g/dL Albumin 2.8 L (3.8-4.9) g/dL Calcium panel 10/19/21 Range/Units 07:39 Calcium 7.6 L (8.7-10.3) mg/dL Albumin 2.8 L (3.8-4.9) g/dL Pituitary panel 10/19/21 Range/Units 07:39 Sodium 135 (135-145) mmol/L Potassium 5.0 (3.5-5.5) mmol/L Chloride 99 (96-109) mmol/L Carbon Dioxide 18.2 L (20.0-27.5) mmol/L BUN 93.0 H (9.0-27.0) mg/dL Creatinine 4.0 H (0.6-1.5) mg/dL Glucose 196 H (70-110) mg/dL Calcium 7.6 L (8.7-10.3) mg/dL Adrenal panel 10/19/21 Range/Units 07:39 Sodium 135 (135-145) mmol/L Potassium 5.0 (3.5-5.5) mmol/L Chloride 99 (96-109) mmol/L Carbon Dioxide 18.2 L (20.0-27.5) mmol/L BUN 93.0 H (9.0-27.0) mg/dL Creatinine 4.0 H (0.6-1.5) mg/dL Glucose 196 H (70-110) mg/dL Calcium 7.6 L (8.7-10.3) mg/dL Total Bilirubin <0.20 L (0.30-1.20) mg/dL AST 16 (13-35) U/L ALT 20 (8-44) U/L Alkaline Phosphatase 62 (41-126) U/L Total Protein 5.5 L (6.2-8.2) g/dL Albumin 2.8 L (3.8-4.9) g/dL
--- NOTE | 2021-10-20 10:23 | P.PN ---
Subjective Progress Note Date: 10/20/21 Patient is a 75-year-old female with a known history of asthma, history of CVA/TIA with no residual weakness, diabetes type 2, hypertension, hyperlipidemia, rheumatoid arthritis on prednisone daily presents to ER with complaints of shortness of breath started around 4 AM this morning. Patient felt like chest congestion and denied any chest pain. Patient states that she is having mild cough and congestion for the past couple of days. Denied any worsening leg swelling than usual. Patient was having worsening symptoms and called EMS. Denied any fever or chills. No nausea vomiting or abdominal pain or diarrhea. No headache or dizziness or diaphoresis. He states that she is fully vaccinated for code 19 infection. Denied any loss of taste or smell sensation. Laboratory data on admission showed WBC 7.3 hemoglobin 8.6 and platelets 204 BUN 29 and creatinine 1.36 Magnesium 1.3 troponin 0.057 and 4.360 ProBNP 2540 and covid-19 PCR not detected. Chest x-ray showed a vague reticular nodular density throughout the right lung may reflect developing infiltrate. Correlate clinically. This is Dr. Shelby dictating I am assuming care of this patient is still [facility] were covering for me up to this point On 10/14/2021 patient was seen and examined on the telemetry floor she is alert and oriented 3 in no apparent distress there is no fever or chills no headache or dizziness no chest pain no shortness of breath she has occasional cough with minimal sputum production there is no nausea or vomiting no abdominal pain no diarrhea no blood in the stools no burning with urination no frequency or urgency and no hematuria. Patient had blood culture initially reported this morning as positive for gram-positive cocci, she was started on IV vancomycin, infectious disease consultation was requested, however subsequently, culture was reported as coag-negative gram-positive cocci possible contamination, IV vancomycin was discontinued. On 10/15/2021 patient was seen and examined on the telemetry floor she is alert and oriented 3 in no apparent distress she is complaining of cough and occasional wheezing otherwise she denies any complaints there is no fever or chills no headache or dizziness no chest pain no shortness of breath, there is no nausea or vomiting no abdominal pain no diarrhea no blood in the stools no burning with urination no frequency or urgency and no hematuria. At this time will continue with IV antibiotics and recheck chest x-ray in a.m. On 10/16/2021 patient alert and oriented 3. Patient currently maintained on IV antibiotics, IV steroids, IV Lasix and heparin drip. Patient reports some improvement. Patient stopping significant wheezing. Chest x-ray ordered. Patient denies chest pain. Patient denies nausea vomiting or diarrhea. Patient denies any urinary burning or frequency On 10/17/2021 patient was seen and examined in the ICU she is alert and oriented 3 in no apparent distress, currently this morning patient had sharp abdominal pain, A team were called. Computed tomography scan of the abdomen was done and revealed evidence of abdominal wall hematoma she was transferred to intensive care unit she had evidence of anemia she received 2 units of red blood cell transfusion IV heparin was discontinued. she is complaining of cough and occasional wheezing otherwise she denies any complaints there is no fever or chills no headache or dizziness no chest pain no shortness of breath, there is no nausea or vomiting no abdominal pain no diarrhea no blood in the stools no burning with urination no frequency or urgency and no hematuria. At this time will continue with IV antibiotics and recheck chest x-ray in a.m. On 10/18/2021 patient remains in the intensive care unit. Patient is alert and oriented 3. Hemoglobin stable at 7.7. Patient does report some abdominal pain with coughing. Creatinine elevated at 3.56 and bun 80. Nephrology services are following. Per nephrology patient will be started on gentle hydration will be given Lasix 80 mg daily. Urology services also consulted. She still complaining of some shortness breath with wheezing. Patient denies chest pain. Patient denies nausea vomiting or diarrhea. Patient denies any urinary burning or frequency On 10/19/2021 patient was seen and examined on the medical floor she is alert and oriented 3 in no apparent distress she is still complaining of cough and complaining of abdominal pain when she coughs, otherwise she denies any complaints at this time,there is no fever or chills no headache or dizziness no chest pain no shortness of breath, no nausea or vomiting no diarrhea no blood in the stools no burning with urination no frequency or urgency and no hematuria . Patient was maintained on IV heparin due to non-STEMI , she developed abdominal wall hematoma , hemoglobin today is down again at 5.8 , will transfuse 1 more unit of red blood cells , and recheck CBC , will follow in a.m. , physical therapy consult was placed On 10/20/2021 patient alert and oriented 3. Patient is currently resting in bed. Patient may require hemodialysis kidneys continued to decline. Nephrology services are following. Patient maintained on bicarb drip. Labs currently pending. Repeat hemoglobin yesterday after blood transfusion 7.1. Patient denies chest pain or shortness of breath. Patient denies nausea vomiting or diarrhea. Patient denies any urinary burning or frequency. Vascular surgery has been consulted for possible hemodialysis catheter placement Objective - Vital Signs Vital signs: Vital Signs Temp 99.1 F 10/20/21 08:25 Pulse 104 H 10/20/21 08:56 Resp 20 10/20/21 08:25 BP 102/65 10/20/21 08:56 Pulse Ox 98 10/20/21 08:25 Intake & Output 10/19/21 10/20/21 10/20/21 18:59 06:59 18:59 Intake Total 310 Output Total 400 Balance -90 Weight 126.5 kg Intake: Blood Product 310 Rc As-1 Unit 310 [id number] Output: Urine 400 Other: Voiding Method Indwelling Catheter Indwelling Catheter # Voids 3 - Exam In general patient is alert and oriented x 3 in no distress HEENT head normocephalic and atraumatic Neck is supple no JVD no goiter no lymphadenopathy no carotid bruit Chest examination reveals scattered crackles bilaterally with wheezing Cardiac exam reveals regular heart sounds S1 and S2 no gallops no murmurs Abdomen is soft nontender no organomegaly with normal bowel sounds Extremity exam reveals no edema no cyanosis or clubbing Neurological examination reveals no gross focal deficits - Labs CBC & Chem 7: 10/19/21 19:24 10/19/21 07:39 Labs: Abnormal Lab Results - Last 24 Hours (Table) 10/17/21 10/19/21 10/19/21 Range/Units 01:08 07:32 07:39 WBC 13.71 H (4.50-10.00) X 10*3/uL RBC 2.04 L (4.10-5.20) X 10*6/uL Hgb 5.8 L* (12.0-15.0) g/dL Hct 18.7 L* (37.2-46.3) % MCHC 31.0 L (32.0-37.0) g/dL RDW 15.2 H (11.5-14.5) % Absolute Nucleated RBC 0.27 H (0.00-0.00) X 10*3/uL Immature Gran # 0.12 H (0.00-0.04) X 10*3/uL Neutrophils # 12.22 H (1.80-7.70) X 10*3/uL Neutrophils # (Manual) (1.3-7.7) k/uL Lymphocytes # 0.85 L (0.90-5.00) X 10*3/uL Lymphocytes # (Manual) (1.0-4.8) k/uL Eosinophils # 0 L (0.04-0.35) X 10*3/uL Nucleated RBCs (0-0) /100 WBC NRBC/100 WBC Diff 2.0 H (0.0-0.0) /100 WBCS Carbon Dioxide 18.2 L (20.0-27.5) mmol/L BUN 93.0 H (9.0-27.0) mg/dL Creatinine 4.0 H (0.6-1.5) mg/dL Est GFR (CKD-EPI)AfAm 11.8 L (60.0-200.0) Est GFR (CKD-EPI)NonAf 10.2 L (60.0-200.0) BUN/Creatinine Ratio 23.25 H (12.00-20.00) Ratio Glucose 196 H (70-110) mg/dL POC Glucose (mg/dL) (75-99) mg/dL Calcium 7.6 L (8.7-10.3) mg/dL Total Bilirubin <0.20 L (0.30-1.20) mg/dL Total Protein 5.5 L (6.2-8.2) g/dL Albumin 2.8 L (3.8-4.9) g/dL Albumin/Globulin Ratio 1.04 L (1.60-3.17) g/dL Crossmatch See Detail 10/19/21 10/19/21 10/19/21 Range/Units 12:00 16:54 19:24 WBC 11.0 H (4.50-10.00) X 10*3/uL RBC 2.40 L (4.10-5.20) X 10*6/uL Hgb 7.1 L (12.0-15.0) g/dL Hct 21.9 L (37.2-46.3) % MCHC (32.0-37.0) g/dL RDW 16.5 H (11.5-14.5) % Absolute Nucleated RBC (0.00-0.00) X 10*3/uL Immature Gran # (0.00-0.04) X 10*3/uL Neutrophils # (1.80-7.70) X 10*3/uL Neutrophils # (Manual) 10.30 H (1.3-7.7) k/uL Lymphocytes # (0.90-5.00) X 10*3/uL Lymphocytes # (Manual) 0.44 L (1.0-4.8) k/uL Eosinophils # (0.04-0.35) X 10*3/uL Nucleated RBCs 2 H (0-0) /100 WBC NRBC/100 WBC Diff (0.0-0.0) /100 WBCS Carbon Dioxide (20.0-27.5) mmol/L BUN (9.0-27.0) mg/dL Creatinine (0.6-1.5) mg/dL Est GFR (CKD-EPI)AfAm (60.0-200.0) Est GFR (CKD-EPI)NonAf (60.0-200.0) BUN/Creatinine Ratio (12.00-20.00) Ratio Glucose (70-110) mg/dL POC Glucose (mg/dL) 194 H 141 H (75-99) mg/dL Calcium (8.7-10.3) mg/dL Total Bilirubin (0.30-1.20) mg/dL Total Protein (6.2-8.2) g/dL Albumin (3.8-4.9) g/dL Albumin/Globulin Ratio (1.60-3.17) g/dL Crossmatch 10/20/21 Range/Units 00:02 WBC (4.50-10.00) X 10*3/uL RBC (4.10-5.20) X 10*6/uL Hgb (12.0-15.0) g/dL Hct (37.2-46.3) % MCHC (32.0-37.0) g/dL RDW (11.5-14.5) % Absolute Nucleated RBC (0.00-0.00) X 10*3/uL Immature Gran # (0.00-0.04) X 10*3/uL Neutrophils # (1.80-7.70) X 10*3/uL Neutrophils # (Manual) (1.3-7.7) k/uL Lymphocytes # (0.90-5.00) X 10*3/uL Lymphocytes # (Manual) (1.0-4.8) k/uL Eosinophils # (0.04-0.35) X 10*3/uL Nucleated RBCs (0-0) /100 WBC NRBC/100 WBC Diff (0.0-0.0) /100 WBCS Carbon Dioxide (20.0-27.5) mmol/L BUN (9.0-27.0) mg/dL Creatinine (0.6-1.5) mg/dL Est GFR (CKD-EPI)AfAm (60.0-200.0) Est GFR (CKD-EPI)NonAf (60.0-200.0) BUN/Creatinine Ratio (12.00-20.00) Ratio Glucose (70-110) mg/dL POC Glucose (mg/dL) 180 H (75-99) mg/dL Calcium (8.7-10.3) mg/dL Total Bilirubin (0.30-1.20) mg/dL Total Protein (6.2-8.2) g/dL Albumin (3.8-4.9) g/dL Albumin/Globulin Ratio (1.60-3.17) g/dL Crossmatch Microbiology - Last 24 Hours (Table) 10/13/21 09:58 Blood Culture - Final Blood No Growth after 144 hours Assessment and Plan Plan: 1. Acute non-ST elevated VA elevated troponin level. Patient started on IV heparin cardiology consultation requested 2. Acute CHF exacerbation, with elevated BNP, 2-D echo completed showing an EF o f 55-60%. Patient maintained on IV Lasix 3. Acute asthma exacerbation, patient has known history of asthma, she had severe wheezing on presentation which is improving 4. Right lower lobe pneumonia, maintained on IV Rocephin and IV Zithromax, sputum culture ordered. 5. Acute kidney injury likely prerenal with creatinine level I.36 on admission. 6. hypomagnesemia 1.3 on admission , replaced. 7. Underlying history of Hypertension 8. Hyperlipidemia 9. Rheumatoid arthritis on prednisone 5 mg daily 10. Normocytic anemia/anemia of chronic disease 11. 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 12. Morbid obesity BMI 40.2 13. Positive blood culture. Infectious disease services are following likely contamination 14. Abdominal wall hematoma and anemia, IV heparin was discontinued patient transferred to intensive care unit and received 2 units of red blood cell transfusion 15. Acute kidney injury secondary to ATN secondary to acute blood loss anemia. Oliguric. Neurology services have been consulted. Nephrology services are following. Patient maintained on bicarb drip. Patient may require hemodialysis if kidneys continued to decline. Vascular surgery consulted for possible hemodialysis catheter placement Critical care services, cardiology services, nephrology services, infectious disease services, neurology services and surgical services are following Continue IV antibiotics Continue to monitor hemoglobin closely repeat labs ordered
--- NOTE | 2021-10-20 10:30 | P.PN ---
Subjective Progress Note Date: 10/20/21 Principal diagnosis: Abdominal wall hematoma Patient says she is only having pain in the abdominal wall with movement and coughing. Overall seems to be getting better. Pain is less than yesterday. Tolerating diet. Yesterday's hemoglobin was 5.8 and she received 1 unit. It w as 7.1 after that. Today's labs pending. Objective - Vital Signs Vital signs: Vital Signs Temp 99.1 F 10/20/21 08:25 Pulse 104 H 10/20/21 08:56 Resp 20 10/20/21 08:25 BP 102/65 10/20/21 08:56 Pulse Ox 98 10/20/21 08:25 Intake & Output 10/19/21 10/20/21 10/20/21 18:59 06:59 18:59 Intake Total 310 Output Total 400 Balance -90 Weight 126.5 kg Intake: Blood Product 310 Rc As-1 Unit 310 [id number] Output: Urine 400 Other: Voiding Method Indwelling Catheter Indwelling Catheter # Voids 3 - Exam Abdomen: Soft, nondistended, mild right-sided tenderness and induration - Labs CBC & Chem 7: 10/19/21 19:24 10/19/21 07:39 Labs: Abnormal Lab Results - Last 24 Hours (Table) 10/17/21 10/19/21 10/19/21 Range/Units 01:08 07:32 07:39 WBC 13.71 H (4.50-10.00) X 10*3/uL RBC 2.04 L (4.10-5.20) X 10*6/uL Hgb 5.8 L* (12.0-15.0) g/dL Hct 18.7 L* (37.2-46.3) % MCHC 31.0 L (32.0-37.0) g/dL RDW 15.2 H (11.5-14.5) % Absolute Nucleated RBC 0.27 H (0.00-0.00) X 10*3/uL Immature Gran # 0.12 H (0.00-0.04) X 10*3/uL Neutrophils # 12.22 H (1.80-7.70) X 10*3/uL Neutrophils # (Manual) (1.3-7.7) k/uL Lymphocytes # 0.85 L (0.90-5.00) X 10*3/uL Lymphocytes # (Manual) (1.0-4.8) k/uL Eosinophils # 0 L (0.04-0.35) X 10*3/uL Nucleated RBCs (0-0) /100 WBC NRBC/100 WBC Diff 2.0 H (0.0-0.0) /100 WBCS Carbon Dioxide 18.2 L (20.0-27.5) mmol/L BUN 93.0 H (9.0-27.0) mg/dL Creatinine 4.0 H (0.6-1.5) mg/dL Est GFR (CKD-EPI)AfAm 11.8 L (60.0-200.0) Est GFR (CKD-EPI)NonAf 10.2 L (60.0-200.0) BUN/Creatinine Ratio 23.25 H (12.00-20.00) Ratio Glucose 196 H (70-110) mg/dL POC Glucose (mg/dL) (75-99) mg/dL Calcium 7.6 L (8.7-10.3) mg/dL Total Bilirubin <0.20 L (0.30-1.20) mg/dL Total Protein 5.5 L (6.2-8.2) g/dL Albumin 2.8 L (3.8-4.9) g/dL Albumin/Globulin Ratio 1.04 L (1.60-3.17) g/dL Crossmatch See Detail 10/19/21 10/19/21 10/19/21 Range/Units 12:00 16:54 19:24 WBC 11.0 H (4.50-10.00) X 10*3/uL RBC 2.40 L (4.10-5.20) X 10*6/uL Hgb 7.1 L (12.0-15.0) g/dL Hct 21.9 L (37.2-46.3) % MCHC (32.0-37.0) g/dL RDW 16.5 H (11.5-14.5) % Absolute Nucleated RBC (0.00-0.00) X 10*3/uL Immature Gran # (0.00-0.04) X 10*3/uL Neutrophils # (1.80-7.70) X 10*3/uL Neutrophils # (Manual) 10.30 H (1.3-7.7) k/uL Lymphocytes # (0.90-5.00) X 10*3/uL Lymphocytes # (Manual) 0.44 L (1.0-4.8) k/uL Eosinophils # (0.04-0.35) X 10*3/uL Nucleated RBCs 2 H (0-0) /100 WBC NRBC/100 WBC Diff (0.0-0.0) /100 WBCS Carbon Dioxide (20.0-27.5) mmol/L BUN (9.0-27.0) mg/dL Creatinine (0.6-1.5) mg/dL Est GFR (CKD-EPI)AfAm (60.0-200.0) Est GFR (CKD-EPI)NonAf (60.0-200.0) BUN/Creatinine Ratio (12.00-20.00) Ratio Glucose (70-110) mg/dL POC Glucose (mg/dL) 194 H 141 H (75-99) mg/dL Calcium (8.7-10.3) mg/dL Total Bilirubin (0.30-1.20) mg/dL Total Protein (6.2-8.2) g/dL Albumin (3.8-4.9) g/dL Albumin/Globulin Ratio (1.60-3.17) g/dL Crossmatch 10/20/21 Range/Units 00:02 WBC (4.50-10.00) X 10*3/uL RBC (4.10-5.20) X 10*6/uL Hgb (12.0-15.0) g/dL Hct (37.2-46.3) % MCHC (32.0-37.0) g/dL RDW (11.5-14.5) % Absolute Nucleated RBC (0.00-0.00) X 10*3/uL Immature Gran # (0.00-0.04) X 10*3/uL Neutrophils # (1.80-7.70) X 10*3/uL Neutrophils # (Manual) (1.3-7.7) k/uL Lymphocytes # (0.90-5.00) X 10*3/uL Lymphocytes # (Manual) (1.0-4.8) k/uL Eosinophils # (0.04-0.35) X 10*3/uL Nucleated RBCs (0-0) /100 WBC NRBC/100 WBC Diff (0.0-0.0) /100 WBCS Carbon Dioxide (20.0-27.5) mmol/L BUN (9.0-27.0) mg/dL Creatinine (0.6-1.5) mg/dL Est GFR (CKD-EPI)AfAm (60.0-200.0) Est GFR (CKD-EPI)NonAf (60.0-200.0) BUN/Creatinine Ratio (12.00-20.00) Ratio Glucose (70-110) mg/dL POC Glucose (mg/dL) 180 H (75-99) mg/dL Calcium (8.7-10.3) mg/dL Total Bilirubin (0.30-1.20) mg/dL Total Protein (6.2-8.2) g/dL Albumin (3.8-4.9) g/dL Albumin/Globulin Ratio (1.60-3.17) g/dL Crossmatch Microbiology - Last 24 Hours (Table) 10/13/21 09:58 Blood Culture - Final Blood No Growth after 144 hours Assessment and Plan (1) Abdominal wall hematoma Narrative/Plan: Patient doing better today. Repeat hemoglobin pending from this morning. Continue diet. Continue to hold anticoagulation. Current Visit: Yes Status: Acute Code(s): S30.1XXA - CONTUSION OF ABDOMINAL WALL, INITIAL ENCOUNTER SNOMED Code(s): 825775462
[2021-10-20 10:39] LABS: African American GFR (CKD) 12.9 (60.0-200.0); Albumin 2.8 g/dL (3.8-4.9); Albumin/Globulin Ratio 1.03 (1.60-3.17); Anion Gap 16.7 mmol/L (10.00-18.00); BUN/Creat Ratio 26.67 Ratio (12.00-20.00); Blood Urea Nitrogen 99.2 mg/dL (9.0-27.0); Calcium 7.8 mg/dL (8.7-10.3); Carbon Dioxide 21.2 mmol/L (20.0-27.5); Globulin 2.7 g/dL (1.6-3.3); Non-African American GFR(CKD) 11.1 (60.0-200.0); Potassium 4.7 mmol/L (3.5-5.5); Total Bilirubin 0.3 mg/dL (0.30-1.20); Total Protein 5.5 g/dL (6.2-8.2)
--- NOTE | 2021-10-20 10:52 | P.PN ---
Subjective Progress Note Date: 10/20/21 Principal diagnosis: Hypertension emergency The patient is a pleasant 75-year-old female patient with a past medical history significant for asthma and hypertension and dyslipidemia who was admitted to the hospital with hypertension emergency complicated by acute non-ST deviation myocardial infarction as well as heart failure. The patient wasn't started on anticoagulation and subsequently she developed abdominal wall hematoma and she was transferred to the intensive care unit. And then subsequently she was transferred to the floor. She remains a stable hemodynamically with reasonable blood pressure as well as heart rate. Hemoglobin continues to be above 7. The patient reports no chest pain or chest discomfort and she stated that the shortness of breath is better. On examination her wheezing has improved. From the cardiac standpoint of view, we'll continue the current medical regimen. We'll follow-up with the patient on when necessary. Objective - Vital Signs Vital signs: Vital Signs Temp 99.1 F 10/20/21 08:25 Pulse 104 H 10/20/21 08:56 Resp 20 10/20/21 08:25 BP 102/65 10/20/21 08:56 Pulse Ox 98 10/20/21 08:25 Intake & Output 10/19/21 10/20/21 10/20/21 18:59 06:59 18:59 Intake Total 310 Output Total 400 Balance -90 Weight 126.5 kg Intake: Blood Product 310 Rc As-1 Unit 310 [id number] Output: Urine 400 Other: Voiding Method Indwelling Catheter Indwelling Catheter # Voids 3 - Constitutional General appearance: Present: no acute distress - Respiratory Respiratory: bilateral: diminished - Cardiovascular Rhythm: regular Heart sounds: normal: S1, S2 - Labs CBC & Chem 7: 10/19/21 19:24 10/20/21 05:34 Labs: Abnormal Lab Results - Last 24 Hours (Table) 10/17/21 10/19/21 10/19/21 Range/Units 01:08 07:32 07:39 WBC 13.71 H (4.50-10.00) X 10*3/uL RBC 2.04 L (4.10-5.20) X 10*6/uL Hgb 5.8 L* (12.0-15.0) g/dL Hct 18.7 L* (37.2-46.3) % MCHC 31.0 L (32.0-37.0) g/dL RDW 15.2 H (11.5-14.5) % Absolute Nucleated RBC 0.27 H (0.00-0.00) X 10*3/uL Immature Gran # 0.12 H (0.00-0.04) X 10*3/uL Neutrophils # 12.22 H (1.80-7.70) X 10*3/uL Neutrophils # (Manual) (1.3-7.7) k/uL Lymphocytes # 0.85 L (0.90-5.00) X 10*3/uL Lymphocytes # (Manual) (1.0-4.8) k/uL Eosinophils # 0 L (0.04-0.35) X 10*3/uL Nucleated RBCs (0-0) /100 WBC NRBC/100 WBC Diff 2.0 H (0.0-0.0) /100 WBCS Carbon Dioxide 18.2 L (20.0-27.5) mmol/L BUN 93.0 H (9.0-27.0) mg/dL Creatinine 4.0 H (0.6-1.5) mg/dL Est GFR (CKD-EPI)AfAm 11.8 L (60.0-200.0) Est GFR (CKD-EPI)NonAf 10.2 L (60.0-200.0) BUN/Creatinine Ratio 23.25 H (12.00-20.00) Ratio Glucose 196 H (70-110) mg/dL POC Glucose (mg/dL) (75-99) mg/dL Calcium 7.6 L (8.7-10.3) mg/dL Total Bilirubin <0.20 L (0.30-1.20) mg/dL Total Protein 5.5 L (6.2-8.2) g/dL Albumin 2.8 L (3.8-4.9) g/dL Albumin/Globulin Ratio 1.04 L (1.60-3.17) g/dL Crossmatch See Detail 10/19/21 10/19/21 10/19/21 Range/Units 12:00 16:54 19:24 WBC 11.0 H (4.50-10.00) X 10*3/uL RBC 2.40 L (4.10-5.20) X 10*6/uL Hgb 7.1 L (12.0-15.0) g/dL Hct 21.9 L (37.2-46.3) % MCHC (32.0-37.0) g/dL RDW 16.5 H (11.5-14.5) % Absolute Nucleated RBC (0.00-0.00) X 10*3/uL Immature Gran # (0.00-0.04) X 10*3/uL Neutrophils # (1.80-7.70) X 10*3/uL Neutrophils # (Manual) 10.30 H (1.3-7.7) k/uL Lymphocytes # (0.90-5.00) X 10*3/uL Lymphocytes # (Manual) 0.44 L (1.0-4.8) k/uL Eosinophils # (0.04-0.35) X 10*3/uL Nucleated RBCs 2 H (0-0) /100 WBC NRBC/100 WBC Diff (0.0-0.0) /100 WBCS Carbon Dioxide (20.0-27.5) mmol/L BUN (9.0-27.0) mg/dL Creatinine (0.6-1.5) mg/dL Est GFR (CKD-EPI)AfAm (60.0-200.0) Est GFR (CKD-EPI)NonAf (60.0-200.0) BUN/Creatinine Ratio (12.00-20.00) Ratio Glucose (70-110) mg/dL POC Glucose (mg/dL) 194 H 141 H (75-99) mg/dL Calcium (8.7-10.3) mg/dL Total Bilirubin (0.30-1.20) mg/dL Total Protein (6.2-8.2) g/dL Albumin (3.8-4.9) g/dL Albumin/Globulin Ratio (1.60-3.17) g/dL Crossmatch 10/20/21 10/20/21 Range/Units 00:02 05:34 WBC (4.50-10.00) X 10*3/uL RBC (4.10-5.20) X 10*6/uL Hgb (12.0-15.0) g/dL Hct (37.2-46.3) % MCHC (32.0-37.0) g/dL RDW (11.5-14.5) % Absolute Nucleated RBC (0.00-0.00) X 10*3/uL Immature Gran # (0.00-0.04) X 10*3/uL Neutrophils # (1.80-7.70) X 10*3/uL Neutrophils # (Manual) (1.3-7.7) k/uL Lymphocytes # (0.90-5.00) X 10*3/uL Lymphocytes # (Manual) (1.0-4.8) k/uL Eosinophils # (0.04-0.35) X 10*3/uL Nucleated RBCs (0-0) /100 WBC NRBC/100 WBC Diff (0.0-0.0) /100 WBCS Carbon Dioxide (20.0-27.5) mmol/L BUN 99.2 H (9.0-27.0) mg/dL Creatinine 3.7 H (0.6-1.5) mg/dL Est GFR (CKD-EPI)AfAm 12.9 L (60.0-200.0) Est GFR (CKD-EPI)NonAf 11.1 L (60.0-200.0) BUN/Creatinine Ratio 26.67 H (12.00-20.00) Ratio Glucose (70-110) mg/dL POC Glucose (mg/dL) 180 H (75-99) mg/dL Calcium 7.8 L (8.7-10.3) mg/dL Total Bilirubin (0.30-1.20) mg/dL Total Protein 5.5 L (6.2-8.2) g/dL Albumin 2.8 L (3.8-4.9) g/dL Albumin/Globulin Ratio 1.03 L (1.60-3.17) g/dL Crossmatch Microbiology - Last 24 Hours (Table) 10/13/21 09:58 Blood Culture - Final Blood No Growth after 144 hours Assessment and Plan Assessment: Assessment #1 hypertension emergency #2 acute renal failure #3 abdominal wall hematoma #4 blood loss anemia #5 acute coronary syndrome #6 multiple comorbid conditions Plan #1 the patient remains a stable hemodynamically #2 continue the current medical regimen #3 follow-up with the patient on when necessary
[2021-10-20 11:01] LABS: Basophils # (A) 0.01 X 10*3/uL (0.00-0.10); Basophils % (A) 0.1 %; Eosinophils # (A) 0 X 10*3/uL (0.04-0.35); Eosinophils % (A) 0 %; Lymphocytes # (A) 0.57 X 10*3/uL (0.90-5.00); Lymphocytes % (A) 5.8 %; Monocytes # (A) 0.54 X 10*3/uL (0.20-1.00); Monocytes % (A) 5.5 %; Neutrophils % (A) 86.3 %
[2021-10-20 11:02] LABS: HCT 20.9 % (37.2-46.3); HGB 6.3 g/dL (12.0-15.0); MCH 27.9 pg (27.0-32.0); MCHC 30.1 g/dL (32.0-37.0); MCV 92.5 fL (80.0-97.0); Mean Platelet Volume 12.1 fL (9.5-12.2); Platelet Count 145 X 10*3/uL (140-440); RBC 2.26 X 10*6/uL (4.10-5.20); RDW 16.8 % (11.5-14.5); WBC 9.85 X 10*3/uL (4.50-10.00)
[2021-10-20 11:26] LABS: Glucose,Whole Blood 63 mg/dL (75-99)
--- NOTE | 2021-10-20 11:50 | P.PN ---
Progress Note - Text Progress Note Date: 10/20/21 The patient reports abdominal wall discomfort only with movement. The Cardoza catheter remains in place, draining light tea-colored urine. The hemoglobin level has decreased to 6.3 today. The serum creatinine level maldonado, presumably due to the patient's hypotension, and today decreased to 3.7. She is not receiving any anticoagulants at this time. My plan is to perform outpatient cystoscopy in several weeks, though her condition may warrant another course of action.
[2021-10-20 11:57] LABS: Glucose,Whole Blood 70 mg/dL (75-99)
[2021-10-20] MEDS: MONTELUKAST 10 MG TAB PO SCH (20:50)
--- NOTE | 2021-10-20 23:07 | PN ---
PROGRESS NOTE DATE OF SERVICE: 10/20/2021 REASON FOR FOLLOWUP: Urinary tract infection. INTERVAL HISTORY: The patient is afebrile. The patient is still complaining of shortness of breath and cough; not bringing up any sputum, though. No nausea, no vomiting. Complaining of some lower abdominal pain. No diarrhea. PHYSICAL EXAMINATION: Her blood pressure is 132/66, pulse of 83, temperature 98.4. She is 92% on 4 L nasal cannula. General description is an elderly female lying in bed in no distress. Respiratory system: Unlabored breathing. Occasional wheeze. Heart S1, S2. Regular rate and rhythm. Abdomen soft, no tenderness. LABS: Hemoglobin is 6.3, white count 9.8, creatinine 3.7. The patient did have positive UA. Unfortunately no cultures were done. DIAGNOSTIC IMPRESSION AND PLAN: Patient with a low-grade fever, elevated white count, positive UA concerning for a symptomatic urinary tract infection. Unfortunately cultures were not done. Cultures will be requested. On empiric Rocephin; to continue and monitor clinical course closely. MMODL / IJN: [id number] /
[2021-10-21 00:16] LABS: Glucose,Whole Blood 91 mg/dL (75-99)
[2021-10-21] MEDS: methylPREDNISolone SOD SUCCI 125 MG/2 ML VIAL IV SCH ×4 (00:20→17:16)
[2021-10-21] MEDS: DEXTROSE 5% IN WATER 1,000 ML with SODIUM BICARB (1 MEQ/ML) 150 ML IV SCH (00:21)
[2021-10-21] MEDS: INSULIN ASPART (NovoLOG) 100 UNIT/ML VIAL SQ SCH ×5 (01:45→21:00)
[2021-10-21] MEDS: LEVOTHYROXINE 25 MCG TAB PO SCH (05:28)
[2021-10-21 05:32] LABS: Glucose,Whole Blood 108 mg/dL (75-99)
[2021-10-21] MEDS: IPRATROPIUM-ALBUTEROL 3 ML NEB INHALATION PRN (07:40)
[2021-10-21 09:10] LABS: African American GFR (CKD) 19.8 (60.0-200.0); Albumin 2.9 g/dL (3.8-4.9); Albumin/Globulin Ratio 1.04 (1.60-3.17); Anion Gap 13.6 mmol/L (10.00-18.00); BUN/Creat Ratio 34.96 Ratio (12.00-20.00); Blood Urea Nitrogen 90.9 mg/dL (9.0-27.0); Calcium 7.8 mg/dL (8.7-10.3); Carbon Dioxide 25.4 mmol/L (20.0-27.5); Globulin 2.8 g/dL (1.6-3.3); Non-African American GFR(CKD) 17.1 (60.0-200.0); Potassium 4.5 mmol/L (3.5-5.5); Total Bilirubin 0.3 mg/dL (0.30-1.20); Total Protein 5.7 g/dL (6.2-8.2)
[2021-10-21] MEDS: glipiZIDE 5 MG TAB PO SCH ×3 (09:54→20:42)
[2021-10-21] MEDS: SODIUM BICARBONATE TAB 650 MG TAB PO SCH ×2 (09:56→20:42)
[2021-10-21] MEDS: amLODIPine 10 MG TAB PO SCH (09:56)
[2021-10-21] MEDS: OXYBUTYNIN 10 MG TAB.ER.24 PO SCH (09:56)
[2021-10-21] MEDS: DOCUSATE 100 MG CAP PO SCH ×2 (09:56→20:42)
[2021-10-21] MEDS: EZETIMIBE 10 MG TAB PO SCH (09:56)
[2021-10-21] MEDS: PANTOPRAZOLE 40 MG/10 ML VIAL IVP SCH (09:56)
[2021-10-21] MEDS: prednisoLONE ACETATE 1% OPHTH DROPS 5 ML BTL BOTH EYES SCH ×4 (09:57→20:42)
[2021-10-21 11:05] LABS: Basophils # (A) 0.01 X 10*3/uL (0.00-0.10); Basophils % (A) 0.1 %; Eosinophils # (A) 0 X 10*3/uL (0.04-0.35); Eosinophils % (A) 0 %; HCT 23.2 % (37.2-46.3); HGB 7.3 g/dL (12.0-15.0); Hypochromasia (M) 2+; Lymphocytes # (A) 0.43 X 10*3/uL (0.90-5.00); Lymphocytes % (A) 4.3 %; MCH 28.6 pg (27.0-32.0); MCHC 31.5 g/dL (32.0-37.0); Mean Platelet Volume 11.7 fL (9.5-12.2); Monocytes # (A) 0.51 X 10*3/uL (0.20-1.00); Monocytes % (A) 5.1 %; Neutrophils # (A) 8.94 X 10*3/uL (1.80-7.70); Platelet Count 148 X 10*3/uL (140-440); RBC 2.55 X 10*6/uL (4.10-5.20); RDW 16.1 % (11.5-14.5); WBC 9.94 X 10*3/uL (4.50-10.00)
--- NOTE | 2021-10-21 11:36 | P.PN ---
Progress Note - Text No acute overnight events, abdominal pain improving, no evidence of gross hematuria today. Her creatinine improved to 2.6 from 3.7. From urology standpoint she can follow-up as an outpatient with Dr. Palma for a office cystoscopy .
[2021-10-21 11:47] LABS: Glucose,Whole Blood 140 mg/dL (75-99)
--- NOTE | 2021-10-21 12:16 | PN ---
PROGRESS NOTE Patient is seen for followup for acute kidney injury. She denies any significant complaints today. Overall, patient states she is feeling better. There were plans for possible renal replacement therapy. However, serum creatinine is improved today. It is down to 2.6 from 3.7 yesterday. EXAMINATION: Today, patient is comfortable. Blood pressure 145/70, heart rate 83 per minute. She is afebrile. Examination of the heart S1, S2. Examination of the lungs, decreased breath sounds at the bases. Abdomen is soft, nontender. Examination of lower extremities shows no significant edema. BETTING AGENCY MANAGER exam grossly intact. LAB: Show sodium 138, potassium 4.5, chloride 99 BUN 90.9, serum creatinine 2.6. ASSESSMENT: 1. Acute kidney injury ATN currently improving, again hold. No need for renal replacement therapy at this time. We will continue to monitor renal function. 2. Metabolic acidosis maintained on oral sodium bicarb. 3. Chronic kidney disease stage 3 baseline creatinine 1.3 with micro albuminuria. Etiology is diabetic nephropathy and nephrosclerosis. 4. Iron deficiency, add IV iron. 5. Gap and non gap metabolic acidosis associated with acute kidney injury. PLAN: Add IV iron. Encourage increased oral intake. Continue with the sodium bicarb. Repeat labs in a.m. MMODL / IJN: [id number] /
[2021-10-21] MEDS: SODIUM FERRIC GLUCONAT-SUCROSE 125 MG in SODIUM CHLORIDE 0.9% 100 ML IVPB SCH (12:21)
--- NOTE | 2021-10-21 12:52 | P.PN ---
Subjective Progress Note Date: 10/21/21 CHIEF COMPLAINT: Abdominal wall hematoma HISTORY OF PRESENT ILLNESS: Surgical service is following regards to patient's abdominal wall hematoma. She currently denies any abdominal pain. She is having bowel movements. She's tolerating diet. She did receive 1 unit of blood yesterday for hemoglobin of 6.3. Hemoglobin did trend up to 7.3. Afebrile. WBC 9.9 creatinine trending down to 2.6 PHYSICAL EXAM: VITAL SIGNS: Reviewed. GENERAL: Well-developed in no acute distress. HEENT: No sclera icterus. Extraocular movements grossly intact. Moist buccal mucosa. Head is atraumatic, normocephalic. ABDOMEN: Soft. Nondistended. Nontender. NEUROLOGIC: Alert and oriented. Cranial nerves II through XII grossly intact. ASSESSMENT: 1. Abdominal wall hematoma 2. Acute blood loss anemia due to heparin and abdominal wall hematoma 3. Hypertensive emergency improved 4. Acute kidney injury 5. Hematuria followed by urology. They're recommending outpatient cystoscopy PLAN: -Continue conservative management -Continue abdominal binder -Continue to monitor hemoglobin -Continue to hold anticoagulation -Nephrology has ordered IV iron Physician Assistant Associate Full Professor note has been reviewed by physician. Signing provider agrees with the documented findings, assessment, and plan of care. Objective - Vital Signs Vital signs: Vital Signs Temp 98.5 F 10/21/21 07:55 Pulse 83 10/21/21 07:55 Resp 17 10/21/21 07:55 BP 145/70 10/21/21 07:55 Pulse Ox 97 10/21/21 07:55 Intake & Output 10/20/21 10/21/21 10/21/21 18:59 06:59 18:59 Intake Total 310 Output Total 1200 1150 Balance -890 -1150 Weight 131 kg Intake: Blood Product 310 Rc As-1 Unit 310 [id number] Output: Urine 1200 1150 Other: Voiding Method Indwelling Catheter Indwelling Catheter Indwelling Catheter # Voids 3 - Labs CBC & Chem 7: 10/21/21 06:01 10/21/21 06:01 Labs: Abnormal Lab Results - Last 24 Hours (Table) 10/20/21 10/21/21 10/21/21 Range/Units 11:33 05:30 06:01 RBC 2.55 L (4.10-5.20) X 10*6/uL Hgb 7.3 L (12.0-15.0) g/dL Hct 23.2 L (37.2-46.3) % MCHC 31.5 L (32.0-37.0) g/dL RDW 16.1 H (11.5-14.5) % Absolute Nucleated RBC 0.03 H (0.00-0.00) X 10*3/uL Immature Gran # 0.05 H (0.00-0.04) X 10*3/uL Neutrophils # 8.94 H (1.80-7.70) X 10*3/uL Lymphocytes # 0.43 L (0.90-5.00) X 10*3/uL Eosinophils # 0 L (0.04-0.35) X 10*3/uL NRBC/100 WBC Diff 0.3 H (0.0-0.0) /100 WBCS BUN (9.0-27.0) mg/dL Creatinine (0.6-1.5) mg/dL Est GFR (CKD-EPI)AfAm (60.0-200.0) Est GFR (CKD-EPI)NonAf (60.0-200.0) BUN/Creatinine Ratio (12.00-20.00) Ratio Glucose (70-110) mg/dL POC Glucose (mg/dL) 108 H (75-99) mg/dL Calcium (8.7-10.3) mg/dL Total Protein (6.2-8.2) g/dL Albumin (3.8-4.9) g/dL Albumin/Globulin Ratio (1.60-3.17) g/dL Crossmatch See Detail 10/21/21 10/21/21 Range/Units 06:01 11:26 RBC (4.10-5.20) X 10*6/uL Hgb (12.0-15.0) g/dL Hct (37.2-46.3) % MCHC (32.0-37.0) g/dL RDW (11.5-14.5) % Absolute Nucleated RBC (0.00-0.00) X 10*3/uL Immature Gran # (0.00-0.04) X 10*3/uL Neutrophils # (1.80-7.70) X 10*3/uL Lymphocytes # (0.90-5.00) X 10*3/uL Eosinophils # (0.04-0.35) X 10*3/uL NRBC/100 WBC Diff (0.0-0.0) /100 WBCS BUN 90.9 H (9.0-27.0) mg/dL Creatinine 2.6 H (0.6-1.5) mg/dL Est GFR (CKD-EPI)AfAm 19.8 L (60.0-200.0) Est GFR (CKD-EPI)NonAf 17.1 L (60.0-200.0) BUN/Creatinine Ratio 34.96 H (12.00-20.00) Ratio Glucose 111 H (70-110) mg/dL POC Glucose (mg/dL) 140 H (75-99) mg/dL Calcium 7.8 L (8.7-10.3) mg/dL Total Protein 5.7 L (6.2-8.2) g/dL Albumin 2.9 L (3.8-4.9) g/dL Albumin/Globulin Ratio 1.04 L (1.60-3.17) g/dL Crossmatch
[2021-10-21 13:50] VITALS: BMI 43.9
[2021-10-21 17:00] LABS: Glucose,Whole Blood 280 mg/dL (75-99)
--- NOTE | 2021-10-21 18:48 | P.PN ---
Subjective Progress Note Date: 10/21/21 Patient is a 75-year-old female with a known history of asthma, history of CVA/TIA with no residual weakness, diabetes type 2, hypertension, hyperlipidemia, rheumatoid arthritis on prednisone daily presents to ER with complaints of shortness of breath started around 4 AM this morning. Patient felt like chest congestion and denied any chest pain. Patient states that she is having mild cough and congestion for the past couple of days. Denied any worsening leg swelling than usual. Patient was having worsening symptoms and called EMS. Denied any fever or chills. No nausea vomiting or abdominal pain or diarrhea. No headache or dizziness or diaphoresis. He states that she is fully vaccinated for code 19 infection. Denied any loss of taste or smell sensation. Laboratory data on admission showed WBC 7.3 hemoglobin 8.6 and platelets 204 BUN 29 and creatinine 1.36 Magnesium 1.3 troponin 0.057 and 4.360 ProBNP 2540 and covid-19 PCR not detected. Chest x-ray showed a vague reticular nodular density throughout the right lung may reflect developing infiltrate. Correlate clinically. This is Dr. Shelby dictating I am assuming care of this patient is still [facility] were covering for me up to this point On 10/14/2021 patient was seen and examined on the telemetry floor she is alert and oriented 3 in no apparent distress there is no fever or chills no headache or dizziness no chest pain no shortness of breath she has occasional cough with minimal sputum production there is no nausea or vomiting no abdominal pain no diarrhea no blood in the stools no burning with urination no frequency or urgency and no hematuria. Patient had blood culture initially reported this morning as positive for gram-positive cocci, she was started on IV vancomycin, infectious disease consultation was requested, however subsequently, culture was reported as coag-negative gram-positive cocci possible contamination, IV vancomycin was discontinued. On 10/15/2021 patient was seen and examined on the telemetry floor she is alert and oriented 3 in no apparent distress she is complaining of cough and occasional wheezing otherwise she denies any complaints there is no fever or chills no headache or dizziness no chest pain no shortness of breath, there is no nausea or vomiting no abdominal pain no diarrhea no blood in the stools no burning with urination no frequency or urgency and no hematuria. At this time will continue with IV antibiotics and recheck chest x-ray in a.m. On 10/16/2021 patient alert and oriented 3. Patient currently maintained on IV antibiotics, IV steroids, IV Lasix and heparin drip. Patient reports some improvement. Patient stopping significant wheezing. Chest x-ray ordered. Patient denies chest pain. Patient denies nausea vomiting or diarrhea. Patient denies any urinary burning or frequency On 10/17/2021 patient was seen and examined in the ICU she is alert and oriented 3 in no apparent distress, currently this morning patient had sharp abdominal pain, A team were called. Computed tomography scan of the abdomen was done and revealed evidence of abdominal wall hematoma she was transferred to intensive care unit she had evidence of anemia she received 2 units of red blood cell transfusion IV heparin was discontinued. she is complaining of cough and occasional wheezing otherwise she denies any complaints there is no fever or chills no headache or dizziness no chest pain no shortness of breath, there is no nausea or vomiting no abdominal pain no diarrhea no blood in the stools no burning with urination no frequency or urgency and no hematuria. At this time will continue with IV antibiotics and recheck chest x-ray in a.m. On 10/18/2021 patient remains in the intensive care unit. Patient is alert and oriented 3. Hemoglobin stable at 7.7. Patient does report some abdominal pain with coughing. Creatinine elevated at 3.56 and bun 80. Nephrology services are following. Per nephrology patient will be started on gentle hydration will be given Lasix 80 mg daily. Urology services also consulted. She still complaining of some shortness breath with wheezing. Patient denies chest pain. Patient denies nausea vomiting or diarrhea. Patient denies any urinary burning or frequency On 10/19/2021 patient was seen and examined on the medical floor she is alert and oriented 3 in no apparent distress she is still complaining of cough and complaining of abdominal pain when she coughs, otherwise she denies any complaints at this time,there is no fever or chills no headache or dizziness no chest pain no shortness of breath, no nausea or vomiting no diarrhea no blood in the stools no burning with urination no frequency or urgency and no hematuria . Patient was maintained on IV heparin due to non-STEMI , she developed abdominal wall hematoma , hemoglobin today is down again at 5.8 , will transfuse 1 more unit of red blood cells , and recheck CBC , will follow in a.m. , physical therapy consult was placed On 10/20/2021 patient alert and oriented 3. Patient is currently resting in bed. Patient may require hemodialysis if kidneys continued to decline. Nephrology services are following. Patient maintained on bicarb drip. Labs currently pending. Repeat hemoglobin yesterday after blood transfusion 7.1. Patient denies chest pain or shortness of breath. Patient denies nausea vomiti ng or diarrhea. Patient denies any urinary burning or frequency. Vascular surgery has been consulted for possible hemodialysis catheter placement On 10/21/2021 patient was seen and examined on the medical floor she is alert and oriented in no apparent distress she is complaining of generalized weakness, otherwise she denies any specific complaints, vital exam reveals a temperature of 98.5 pulse 83 respirations 17 blood pressure 145/70 pulse ox 97% on 2 L nasal cannula, white blood count 9.9 hemoglobin 7.3 platelet count 148 sodium 138 potassium 4.5 chloride 99 CO2 25.4 BUN 90.9 creatinine 2.6, patient was started on physical therapy and occupational therapy will continue to monitor closely Objective - Vital Signs Vital signs: Vital Signs Temp 98.5 F 10/21/21 07:55 Pulse 83 10/21/21 07:55 Resp 17 10/21/21 07:55 BP 145/70 10/21/21 07:55 Pulse Ox 97 10/21/21 07:55 Intake & Output 10/20/21 10/21/21 10/21/21 18:59 06:59 18:59 Intake Total 310 Output Total 1200 1150 Balance -890 -1150 Weight 131 kg Intake: Blood Product 310 Rc As-1 Unit 310 [id number] Output: Urine 1200 1150 Other: Voiding Method Indwelling Catheter Indwelling Catheter # Voids 3 - Exam In general patient is alert and oriented x 3 in no distress HEENT head normocephalic and atraumatic Neck is supple no JVD no goiter no lymphadenopathy no carotid bruit Chest examination reveals scattered crackles bilaterally with wheezing Cardiac exam reveals regular heart sounds S1 and S2 no gallops no murmurs Abdomen is soft nontender no organomegaly with normal bowel sounds Extremity exam reveals no edema no cyanosis or clubbing Neurological examination reveals no gross focal deficits - Labs CBC & Chem 7: 10/21/21 06:01 10/21/21 06:01 Labs: Abnormal Lab Results - Last 24 Hours (Table) 10/20/21 10/20/21 10/20/21 Range/Units 05:34 05:34 11:24 RBC 2.26 L (4.10-5.20) X 10*6/uL Hgb 6.3 L* (12.0-15.0) g/dL Hct 20.9 L (37.2-46.3) % MCHC 30.1 L (32.0-37.0) g/dL RDW 16.8 H (11.5-14.5) % Absolute Nucleated RBC 0.18 H (0.00-0.00) X 10*3/uL Immature Gran # 0.23 H (0.00-0.04) X 10*3/uL Neutrophils # 8.50 H (1.80-7.70) X 10*3/uL Lymphocytes # 0.57 L (0.90-5.00) X 10*3/uL Eosinophils # 0 L (0.04-0.35) X 10*3/uL NRBC/100 WBC Diff 1.8 H (0.0-0.0) /100 WBCS BUN 99.2 H (9.0-27.0) mg/dL Creatinine 3.7 H (0.6-1.5) mg/dL Est GFR (CKD-EPI)AfAm 12.9 L (60.0-200.0) Est GFR (CKD-EPI)NonAf 11.1 L (60.0-200.0) BUN/Creatinine Ratio 26.67 H (12.00-20.00) Ratio Glucose (70-110) mg/dL POC Glucose (mg/dL) 63 L (75-99) mg/dL Calcium 7.8 L (8.7-10.3) mg/dL Total Protein 5.5 L (6.2-8.2) g/dL Albumin 2.8 L (3.8-4.9) g/dL Albumin/Globulin Ratio 1.03 L (1.60-3.17) g/dL Crossmatch 10/20/21 10/20/21 10/21/21 Range/Units 11:33 11:56 05:30 RBC (4.10-5.20) X 10*6/uL Hgb (12.0-15.0) g/dL Hct (37.2-46.3) % MCHC (32.0-37.0) g/dL RDW (11.5-14.5) % Absolute Nucleated RBC (0.00-0.00) X 10*3/uL Immature Gran # (0.00-0.04) X 10*3/uL Neutrophils # (1.80-7.70) X 10*3/uL Lymphocytes # (0.90-5.00) X 10*3/uL Eosinophils # (0.04-0.35) X 10*3/uL NRBC/100 WBC Diff (0.0-0.0) /100 WBCS BUN (9.0-27.0) mg/dL Creatinine (0.6-1.5) mg/dL Est GFR (CKD-EPI)AfAm (60.0-200.0) Est GFR (CKD-EPI)NonAf (60.0-200.0) BUN/Creatinine Ratio (12.00-20.00) Ratio Glucose (70-110) mg/dL POC Glucose (mg/dL) 70 L 108 H (75-99) mg/dL Calcium (8.7-10.3) mg/dL Total Protein (6.2-8.2) g/dL Albumin (3.8-4.9) g/dL Albumin/Globulin Ratio (1.60-3.17) g/dL Crossmatch See Detail 10/21/21 Range/Units 06:01 RBC (4.10-5.20) X 10*6/uL Hgb (12.0-15.0) g/dL Hct (37.2-46.3) % MCHC (32.0-37.0) g/dL RDW (11.5-14.5) % Absolute Nucleated RBC (0.00-0.00) X 10*3/uL Immature Gran # (0.00-0.04) X 10*3/uL Neutrophils # (1.80-7.70) X 10*3/uL Lymphocytes # (0.90-5.00) X 10*3/uL Eosinophils # (0.04-0.35) X 10*3/uL NRBC/100 WBC Diff (0.0-0.0) /100 WBCS BUN 90.9 H (9.0-27.0) mg/dL Creatinine 2.6 H (0.6-1.5) mg/dL Est GFR (CKD-EPI)AfAm 19.8 L (60.0-200.0) Est GFR (CKD-EPI)NonAf 17.1 L (60.0-200.0) BUN/Creatinine Ratio 34.96 H (12.00-20.00) Ratio Glucose 111 H (70-110) mg/dL POC Glucose (mg/dL) (75-99) mg/dL Calcium 7.8 L (8.7-10.3) mg/dL Total Protein 5.7 L (6.2-8.2) g/dL Albumin 2.9 L (3.8-4.9) g/dL Albumin/Globulin Ratio 1.04 L (1.60-3.17) g/dL Crossmatch Assessment and Plan Plan: 1. Acute non-ST elevated UT elevated troponin level. Patient started on IV heparin cardiology consultation requested 2. Acute CHF exacerbation, with elevated BNP, 2-D echo completed showing an EF of 55-60%. Patient maintained on IV Lasix 3. Acute asthma exacerbation, patient has known history of asthma, she had severe wheezing on presentation which is improving 4. Right lower lobe pneumonia, maintained on IV Rocephin and IV Zithromax, sputum culture ordered. 5. Acute kidney injury likely prerenal with creatinine level I.36 on admission. 6. hypomagnesemia 1.3 on admission , replaced. 7. Underlying history of Hypertension 8. Hyperlipidemia 9. Rheumatoid arthritis on prednisone 5 mg daily 10. Normocytic anemia/anemia of chronic disease 11. 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 12. Morbid obesity BMI 40.2 13. Positive blood culture. Infectious disease services are following likely contamination 14. Abdominal wall hematoma and anemia, IV heparin was discontinued patient transferred to intensive care unit and received 2 units of red blood cell transfusion 15. Acute kidney injury secondary to ATN secondary to acute blood loss anemia. Oliguric. Neurology services have been consulted. Nephrology services are following. Patient maintained on bicarb drip. Patient may require hemodialysis if kidneys continued to decline. Vascular surgery consulted for possible hemodialysis catheter placement Critical care services, cardiology services, nephrology services, infectious disease services, neurology services and surgical services are following Continue IV antibiotics Continue to monitor hemoglobin closely repeat labs ordered
[2021-10-21] MEDS: MONTELUKAST 10 MG TAB PO SCH (20:42)
[2021-10-21 20:50] LABS: Glucose,Whole Blood 297 mg/dL (75-99)
--- NOTE | 2021-10-21 22:08 | PN ---
PROGRESS NOTE DATE OF SERVICE: 10/21/2021 REASON FOR FOLLOWUP: Urinary tract infection. INTERVAL HISTORY: Patient is afebrile. The patient is breathing more comfortably. The patient denies any chest pain. No worsening cough. No sputum production. No abdominal pain. No diarrhea. PHYSICAL EXAMINATION: Blood pressure 154/78 with a pulse of 93, temperature 98.1. She is 96% on 2 L nasal cannula. General description is an elderly female lying in bed in no distress. Respiratory system: Unlabored breathing, occasional wheezing bilaterally. Heart S1, S2. Regular rate and rhythm. Abdomen soft, no tenderness. LABS: Hemoglobin 7.1, white count 9.4, creatinine is 2.6. DIAGNOSTIC IMPRESSION AND PLAN: 1. Patient with positive blood cultures, . 2. Patient with positive urinary symptoms concerning for symptomatic urinary tract infection. Unfortunately, urine cultures not done, has been requested. Continue antibiotic Rocephin and monitor clinical course closely. MMODL / IJN: [id number] /
[2021-10-22] MEDS: methylPREDNISolone SOD SUCCI 125 MG/2 ML VIAL IV SCH ×3 (01:01→12:48)
[2021-10-22] MEDS: DEXTROSE 5% IN WATER 1,000 ML with SODIUM BICARB (1 MEQ/ML) 150 ML IV SCH (01:02)
[2021-10-22] MEDS: IPRATROPIUM-ALBUTEROL 3 ML NEB INHALATION PRN ×4 (04:06→22:04)
[2021-10-22] MEDS: LEVOTHYROXINE 25 MCG TAB PO SCH (06:05)
[2021-10-22 08:12] LABS: Glucose,Whole Blood 144 mg/dL (75-99)
[2021-10-22] MEDS: DOCUSATE 100 MG CAP PO SCH ×2 (09:38→21:44)
[2021-10-22] MEDS: OXYBUTYNIN 10 MG TAB.ER.24 PO SCH (09:38)
[2021-10-22] MEDS: SODIUM BICARBONATE TAB 650 MG TAB PO SCH (09:38)
[2021-10-22] MEDS: glipiZIDE 5 MG TAB PO SCH ×3 (09:38→21:44)
[2021-10-22] MEDS: amLODIPine 10 MG TAB PO SCH (09:38)
[2021-10-22] MEDS: PANTOPRAZOLE 40 MG/10 ML VIAL IVP SCH (09:38)
[2021-10-22] MEDS: INSULIN ASPART (NovoLOG) 100 UNIT/ML VIAL SQ SCH ×4 (09:38→21:44)
[2021-10-22] MEDS: EZETIMIBE 10 MG TAB PO SCH (09:38)
[2021-10-22] MEDS: prednisoLONE ACETATE 1% OPHTH DROPS 5 ML BTL BOTH EYES SCH ×4 (09:39→21:44)
[2021-10-22 09:43] LABS: HCT 23.5 % (37.2-46.3); HGB 7.4 g/dL (12.0-15.0); MCH 28.8 pg (27.0-32.0); MCHC 31.5 g/dL (32.0-37.0); MCV 91.4 fL (80.0-97.0); Mean Platelet Volume 11.4 fL (9.5-12.2); Platelet Count 155 X 10*3/uL (140-440); RBC 2.57 X 10*6/uL (4.10-5.20); RDW 15.6 % (11.5-14.5); WBC 12.55 X 10*3/uL (4.50-10.00)
[2021-10-22] MEDS: SODIUM FERRIC GLUCONAT-SUCROSE 125 MG in SODIUM CHLORIDE 0.9% 100 ML IVPB SCH (10:22)
[2021-10-22] MEDS ORDERED: ALPRAZolam 0.25 MG TAB PO STA (10:25)
[2021-10-22 10:55] LABS: Basophils # (A) 0.02 X 10*3/uL (0.00-0.10); Basophils % (A) 0.2 %; Eosinophils # (A) 0 X 10*3/uL (0.04-0.35); Eosinophils % (A) 0 %; Lymphocytes # (A) 0.31 X 10*3/uL (0.90-5.00); Lymphocytes % (A) 2.5 %; Monocytes # (A) 0.56 X 10*3/uL (0.20-1.00); Monocytes % (A) 4.5 %; Neutrophils # (A) 11.53 X 10*3/uL (1.80-7.70); Neutrophils % (A) 91.8 %
[2021-10-22 11:09] LABS: African American GFR (CKD) 27.6 (60.0-200.0); Albumin 2.8 g/dL (3.8-4.9); Anion Gap 17.2 mmol/L (10.00-18.00); BUN/Creat Ratio 41.62 Ratio (12.00-20.00); Blood Urea Nitrogen 82.4 mg/dL (9.0-27.0); Calcium 7.8 mg/dL (8.7-10.3); Carbon Dioxide 25.1 mmol/L (20.0-27.5); Globulin 2.8 g/dL (1.6-3.3); Non-African American GFR(CKD) 23.8 (60.0-200.0); Potassium 4.3 mmol/L (3.5-5.5); Total Bilirubin 0.4 mg/dL (0.30-1.20); Total Protein 5.6 g/dL (6.2-8.2)
[2021-10-22 11:41] LABS: Glucose,Whole Blood 140 mg/dL (75-99)
--- NOTE | 2021-10-22 12:49 | P.PN ---
Subjective Progress Note Date: 10/22/21 CHIEF COMPLAINT: Abdominal wall hematoma HISTORY OF PRESENT ILLNESS: Surgical service is following regards to patient's abdominal wall hematoma. She currently denies any abdominal pain. She is having bowel movements. She's tolerating diet. Patient is receiving iron. Hemoglobin is 7.4. Afebrile. WBC 12.55 platelets 155. Stool for occult blood positive. Patient denies any visual blood or black stools. She is on a regular diet. PHYSICAL EXAM: VITAL SIGNS: Reviewed. GENERAL: Well-developed in no acute distress. HEENT: No sclera icterus. Extraocular movements grossly intact. Moist buccal mucosa. Head is atraumatic, normocephalic. ABDOMEN: Soft. Nondistended. Nontender. NEUROLOGIC: Alert and oriented. Cranial nerves II through XII grossly intact. ASSESSMENT: 1. Abdominal wall hematoma 2. Acute blood loss anemia due to heparin and abdominal wall hematoma 3. Hypertensive emergency improved 4. Acute kidney injury 5. Hematuria followed by urology. They're recommending outpatient cystoscopy PLAN: -Continue conservative management -Continue abdominal binder -Continue to monitor hemoglobin -Continue to hold anticoagulation Physician Restaurant Managing Partner note has been reviewed by physician. Signing provider agrees with the documented findings, assessment, and plan of care. Objective - Vital Signs Vital signs: Vital Signs Temp 98.4 F 10/22/21 08:00 Pulse 62 10/22/21 09:48 Resp 18 10/22/21 09:48 BP 151/70 10/22/21 08:00 Pulse Ox 99 10/22/21 09:35 Intake & Output 10/21/21 10/22/21 10/22/21 18:59 06:59 18:59 Output Total 500 Balance -500 Weight 131 kg 131.3 kg Output: Urine 500 Other: Voiding Method Indwelling Catheter Indwelling Catheter Indwelling Catheter # Bowel Movements 1 - Labs CBC & Chem 7: 10/22/21 06:15 10/22/21 06:15 Labs: Abnormal Lab Results - Last 24 Hours (Table) 10/21/21 10/21/21 10/21/21 Range/Units 16:51 20:49 22:12 WBC (4.50-10.00) X 10*3/uL RBC (4.10-5.20) X 10*6/uL Hgb (12.0-15.0) g/dL Hct (37.2-46.3) % MCHC (32.0-37.0) g/dL RDW (11.5-14.5) % Absolute Nucleated RBC (0.00-0.00) X 10*3/uL Immature Gran # (0.00-0.04) X 10*3/uL Neutrophils # (1.80-7.70) X 10*3/uL Lymphocytes # (0.90-5.00) X 10*3/uL Eosinophils # (0.04-0.35) X 10*3/uL NRBC/100 WBC Diff (0.0-0.0) /100 WBCS BUN (9.0-27.0) mg/dL Creatinine (0.6-1.5) mg/dL Est GFR (CKD-EPI)AfAm (60.0-200.0) Est GFR (CKD-EPI)NonAf (60.0-200.0) BUN/Creatinine Ratio (12.00-20.00) Ratio Glucose (70-110) mg/dL POC Glucose (mg/dL) 280 H 297 H (75-99) mg/dL Calcium (8.7-10.3) mg/dL Total Protein (6.2-8.2) g/dL Albumin (3.8-4.9) g/dL Albumin/Globulin Ratio (1.60-3.17) g/dL Stool Occult Blood Positive H (Negative) 10/22/21 10/22/21 10/22/21 Range/Units 06:15 06:15 08:11 WBC 12.55 H (4.50-10.00) X 10*3/uL RBC 2.57 L (4.10-5.20) X 10*6/uL Hgb 7.4 L (12.0-15.0) g/dL Hct 23.5 L (37.2-46.3) % MCHC 31.5 L (32.0-37.0) g/dL RDW 15.6 H (11.5-14.5) % Absolute Nucleated RBC 0.02 H (0.00-0.00) X 10*3/uL Immature Gran # 0.13 H (0.00-0.04) X 10*3/uL Neutrophils # 11.53 H (1.80-7.70) X 10*3/uL Lymphocytes # 0.31 L (0.90-5.00) X 10*3/uL Eosinophils # 0 L (0.04-0.35) X 10*3/uL NRBC/100 WBC Diff 0.2 H (0.0-0.0) /100 WBCS BUN 82.4 H (9.0-27.0) mg/dL Creatinine 2.0 H (0.6-1.5) mg/dL Est GFR (CKD-EPI)AfAm 27.6 L (60.0-200.0) Est GFR (CKD-EPI)NonAf 23.8 L (60.0-200.0) BUN/Creatinine Ratio 41.62 H (12.00-20.00) Ratio Glucose 136 H (70-110) mg/dL POC Glucose (mg/dL) 144 H (75-99) mg/dL Calcium 7.8 L (8.7-10.3) mg/dL Total Protein 5.6 L (6.2-8.2) g/dL Albumin 2.8 L (3.8-4.9) g/dL Albumin/Globulin Ratio 1.00 L (1.60-3.17) g/dL Stool Occult Blood (Negative) 10/22/21 Range/Units 11:39 WBC (4.50-10.00) X 10*3/uL RBC (4.10-5.20) X 10*6/uL Hgb (12.0-15.0) g/dL Hct (37.2-46.3) % MCHC (32.0-37.0) g/dL RDW (11.5-14.5) % Absolute Nucleated RBC (0.00-0.00) X 10*3/uL Immature Gran # (0.00-0.04) X 10*3/uL Neutrophils # (1.80-7.70) X 10*3/uL Lymphocytes # (0.90-5.00) X 10*3/uL Eosinophils # (0.04-0.35) X 10*3/uL NRBC/100 WBC Diff (0.0-0.0) /100 WBCS BUN (9.0-27.0) mg/dL Creatinine (0.6-1.5) mg/dL Est GFR (CKD-EPI)AfAm (60.0-200.0) Est GFR (CKD-EPI)NonAf (60.0-200.0) BUN/Creatinine Ratio (12.00-20.00) Ratio Glucose (70-110) mg/dL POC Glucose (mg/dL) 140 H (75-99) mg/dL Calcium (8.7-10.3) mg/dL Total Protein (6.2-8.2) g/dL Albumin (3.8-4.9) g/dL Albumin/Globulin Ratio (1.60-3.17) g/dL Stool Occult Blood (Negative)
[2021-10-22 16:43] LABS: Glucose,Whole Blood 163 mg/dL (75-99)
[2021-10-22] MEDS ORDERED: FUROSEMIDE 10 MG/ML 4 ML VIAL IV STA (17:17)
--- NOTE | 2021-10-22 18:07 | PN ---
PROGRESS NOTE Patient is seen for followup for acute kidney injury. Her renal function has been improving. Creatinine is down to 2.0 from peak of 4.0. On examination today, blood pressure was 160/67, heart rate 89 per minute. Patient is afebrile. EXAMINATION OF THE HEART: S1 and S2. EXAMINATION OF LUNGS: Bilateral breath sounds are heard. Wheezing is heard bilaterally. Abdomen is soft, non-tender. Examination of lower extremities shows edema 1+ bilaterally. SHELTER CASE MANAGER EXAM: Grossly intact. Labs show sodium of 139, potassium 4.3, BUN 82, creatinine 2.0, hemoglobin 7.4 g/dL. Stool for occult blood positive. ASSESSMENT: 1. Acute kidney injury, acute tubular necrosis, currently improving. No need for renal replacement therapy. Renal function continues to improve. 2. Metabolic acidosis associated with renal failure, maintained on sodium bicarb. 3. Chronic kidney disease, stage 3. Baseline creatinine about 1.3 with microalbuminuria; etiology diabetic nephropathy and nephrosclerosis. 4. Iron deficiency. Started IV iron. 5. Gap and non-gap metabolic acidosis associated with acute kidney injury. 6. Anemia with stool for occult blood positive with iron deficiency, maintained on IV iron. PLAN: Discontinue IV fluids. Lasix IV x1. I will also discontinue the sodium bicarb. Repeat labs in a.m. Continue to avoid nephrotoxic agents. MMODL / IJN: [id number] /
[2021-10-22 20:55] LABS: Glucose,Whole Blood 171 mg/dL (75-99)
[2021-10-22] MEDS: MONTELUKAST 10 MG TAB PO SCH (21:44)
[2021-10-22 22:36] LABS: Hepatitis B Surface AB- Quant 14.6 mIU/mL; Hepatitis B Surface Antibody Reactive (Nonreactive); Hepatitis B Surface Antigen Nonreactive (Nonreactive)
--- NOTE | 2021-10-22 23:19 | PN ---
PROGRESS NOTE DATE OF SERVICE: 10/22/2021 REASON FOR FOLLOWUP: 1. Urinary tract infection. 2. Positive blood culture contamination. INTERVAL HISTORY: Patient is afebrile, breathing comfortably. Denies any chest pain. Did have a cough, not bringing up any sputum. No vomiting. No abdominal pain or diarrhea. PHYSICAL EXAMINATION: Blood pressure 155/72, temperature 98.2. He is 95% on room air. General description is an elderly female up in the bed in no distress. Respiratory system: Unlabored breathing. Occasional wheeze. Heart S1, S2. Regular rate and rhythm. Abdomen soft, no tenderness. No guarding. No rigidity. LABS: Hemoglobin 7.4, white count 12.3, creatinine is 2.0. Urine cultures requested not done. DIAGNOSTIC IMPRESSION AND PLAN: 1. Patient with positive blood culture likely skin contamination. Repeat blood culture negative. 2. Positive UA with concern for symptomatic urinary tract infection. Urine culture is pending. Patient to continue with Rocephin. Continue supportive care. MMODL / IJN: [id number] /
[2021-10-23] MEDS: LEVOTHYROXINE 25 MCG TAB PO SCH (05:44)
--- NOTE | 2021-10-23 05:59 | P.CONS ---
History of Present Illness - Chief Complaint Medical debility - History of Present Illness I had the opportunity to see patient for inpatient rehab consultation with regard to medical debility. She was admitted to [facility] October 13 with cough and pneumonia, asthma exacerbation and non-STEMI. Seen by Dr. Ellis for HI and CHF. Seen by Dr. Alicea for antibiotic management.'s x-rays followed demonstrate atelectasis. Noted patient did require rapid response 1 with systolic blood pressure in the 100s and heart rate over 100. Seen by Dr. Murphy for abdominal wall hematoma. Seen by Dr. Bobby for acute kidney injury. Seen by Dr. Garcia for difficulty passing urine. Has started therapies. PT reports two-person total assistance for bed and functional mobility. Fatigues quickly. OT reports minimal assistance for upper dressing and maximal assistance for lower dressing, bathing, toileting. Unable to participate with functional mobility. Previous functional history as elicited patient: 75-year-old right-handed female who lives in a second-floor apartment with elevator with daughter and granddaughter. Noted to daughter does the laundry and driving. Patient receives Meals on Wheels. Otherwise describes independent with own sitdown shower, gait with roller walker around the apartment and 4 wheeled walker outside. Does have electric wheelchair. PCP Dr. umm roach. Denies tobacco or alcohol. Review of Systems Review of systems: ENT: Denies sneezes or discharge. Eyes: Denies discharge or photophobia. Cardiac: Denies chest pain or palpitation. Pulmonary: At least mild shortness of breath. Breast: Denies discharge or lumps. Gastrointestinal: Denies nausea, emesis, constipation, diarrhea. Genitourinary: Denies discharge or frequency. Musculoskeletal: Denies muscle or bone aches. Neurologic: Generalized weakness. Endocrine: Denies shakes or sweats. Oncology: Denies cancers. Dermatologic: Denies rash, itching, pruritus. ALLERGY/immunology: Denies sneezes, rashes. Past Medical History Past Medical History: Asthma, CVA/TIA, Diabetes Mellitus, Hyperlipidemia, Hypertension, Rheumatoid Arthritis (RA) Additional Past Medical History / Comment(s): TIA in 2016 History of Any Multi-Drug Resistant Organisms: None Reported Past Surgical History: Appendectomy, Tubal Ligation Additional Past Surgical History / Comment(s): Colonoscopy, cataracts surg Past Anesthesia/Blood Transfusion Reactions: No Reported Reaction Past Psychological History: No Psychological Hx Reported Smoking Status: Never smoker Past Alcohol Use History: None Reported Past Drug Use History: None Reported - Past Family History Father Family Medical History: Cancer, Congestive Heart Failure (CHF) Additional Family Medical History / Comment(s): colon cancer Mother Family Medical History: Rheumatoid Arthritis (RA) Medications and Allergies Home Medications Medication Instructions Recorded Confirmed Type Clopidogrel [Plavix] 75 mg PO DAILY 05/14/19 10/13/21 History Metoprolol Succinate (ER) [Toprol 25 mg PO DAILY 05/14/19 10/13/21 History XL] lisinopriL 40 mg PO DAILY 05/14/19 10/13/21 History Montelukast [Singulair] 10 mg PO HS #30 tab 05/24/19 10/13/21 Rx Albuterol Inhaler [Ventolin Hfa 1 - 2 puff INHALATION RT-QID PRN 06/14/20 10/13/21 History Inhaler] Tolterodine ER [Detrol LA] 4 mg PO DAILY 06/14/20 10/13/21 History Ferrous Sulfate [Iron (65 MG 325 mg PO DAILY 02/16/21 10/13/21 History Elemental)] Acetaminophen Tab [Tylenol Tab] 1,000 mg PO Q6HR PRN 10/13/21 10/13/21 History Cholecalciferol [Vitamin D3 (25 50 mcg PO DAILY 10/13/21 10/13/21 History Mcg = 1000 Iu)] Ezetimibe [Zetia] 10 mg PO DAILY 10/13/21 10/13/21 History Levothyroxine Sodium [Synthroid] 25 mcg PO DAILY 10/13/21 10/13/21 History glipiZIDE [Glucotrol] 5 mg PO TID 10/13/21 10/13/21 History guaiFENesin [Diabetic Tussin] 200 mg PO Q6H PRN 10/13/21 10/13/21 History predniSONE 5 mg PO DAILY 10/13/21 10/13/21 History prednisoLONE ACETATE 1% OPHTH 1 drops BOTH EYES QID 10/13/21 10/13/21 History [Pred Forte 1%] Allergies Allergy/AdvReac Type Severity Reaction Status Date / Time atorvastatin [From Lipitor] AdvReac CRAMPS Verified 10/13/21 10:53 latex AdvReac Itching Verified 10/13/21 10:53 Physical Exam Vitals: Vital Signs Temp Pulse Pulse Pulse Resp BP BP 10/23/21 02:15 98.4 F 82 18 161/61 10/22/21 22:11 80 10/22/21 22:05 80 10/22/21 21:41 98.2 F 82 18 155/69 10/22/21 15:51 10/22/21 14:51 98.5 F 89 20 160/67 10/22/21 13:10 89 18 10/22/21 13:00 84 18 10/22/21 09:48 62 18 10/22/21 09:35 59 L 18 10/22/21 08:00 98.4 F 87 22 151/70 Pulse Ox 10/23/21 02:15 96 10/22/21 22:11 10/22/21 22:05 10/22/21 21:41 95 10/22/21 15:51 97 10/22/21 14:51 100 10/22/21 13:10 10/22/21 13:00 10/22/21 09:48 10/22/21 09:35 99 10/22/21 08:00 94 L Intake and Output 10/22/21 10/22/21 10/23/21 14:59 22:59 06:59 Output Total 500 700 Balance -500 -700 Output: Urine 500 700 Other: Voiding Method Indwelling Catheter External Catheter Weight 125 kg Skin: Atrophic, intact. General: Obese build and comfortable appearance. Head: Normocephalic, atraumatic. Eyes: Symmetric. Pupils equal round. Ears: Symmetric. Hearing within normal limits. Mouth: Clear. Neck: Supple. Carotid without bruit. Cardiac: Regular rate and rhythm. Lungs: Clear anteriorly and posteriorly. Abdomen: Soft active nontender. Extremities: Normal tone. Neurological: Mental status: Alert, cooperative, pleasant. Cranial nerves: Symmetric facial tone and trapezius. Motor: Normal strength and isolation all 4 limbs. Sensation: Intact throughout. DTRs: Symmetric and equal throughout. Mobility: Bed mobility with physical assistance. Results CBC & Chem 7: 10/22/21 06:15 10/22/21 06:15 Labs: Abnormal Lab Results - Last 24 Hours (Table) 10/21/21 10/22/21 10/22/21 Range/Units 06:01 06:15 06:15 WBC 12.55 H (4.50-10.00) X 10*3/uL RBC 2.57 L (4.10-5.20) X 10*6/uL Hgb 7.4 L (12.0-15.0) g/dL Hct 23.5 L (37.2-46.3) % MCHC 31.5 L (32.0-37.0) g/dL RDW 15.6 H (11.5-14.5) % Absolute Nucleated RBC 0.02 H (0.00-0.00) X 10*3/uL Immature Gran # 0.13 H (0.00-0.04) X 10*3/uL Neutrophils # 11.53 H (1.80-7.70) X 10*3/uL Lymphocytes # 0.31 L (0.90-5.00) X 10*3/uL Eosinophils # 0 L (0.04-0.35) X 10*3/uL NRBC/100 WBC Diff 0.2 H (0.0-0.0) /100 WBCS BUN 82.4 H (9.0-27.0) mg/dL Creatinine 2.0 H (0.6-1.5) mg/dL Est GFR (CKD-EPI)AfAm 27.6 L (60.0-200.0) Est GFR (CKD-EPI)NonAf 23.8 L (60.0-200.0) BUN/Creatinine Ratio 41.62 H (12.00-20.00) Ratio Glucose 136 H (70-110) mg/dL POC Glucose (mg/dL) (75-99) mg/dL Calcium 7.8 L (8.7-10.3) mg/dL Total Protein 5.6 L (6.2-8.2) g/dL Albumin 2.8 L (3.8-4.9) g/dL Albumin/Globulin Ratio 1.00 L (1.60-3.17) g/dL Hep Bs Antibody Reactive A (Nonreactive) Hep B Core Total Ab Reactive A (Nonreactive) 10/22/21 10/22/21 10/22/21 Range/Units 08:11 11:39 16:42 WBC (4.50-10.00) X 10*3/uL RBC (4.10-5.20) X 10*6/uL Hgb (12.0-15.0) g/dL Hct (37.2-46.3) % MCHC (32.0-37.0) g/dL RDW (11.5-14.5) % Absolute Nucleated RBC (0.00-0.00) X 10*3/uL Immature Gran # (0.00-0.04) X 10*3/uL Neutrophils # (1.80-7.70) X 10*3/uL Lymphocytes # (0.90-5.00) X 10*3/uL Eosinophils # (0.04-0.35) X 10*3/uL NRBC/100 WBC Diff (0.0-0.0) /100 WBCS BUN (9.0-27.0) mg/dL Creatinine (0.6-1.5) mg/dL Est GFR (CKD-EPI)AfAm (60.0-200.0) Est GFR (CKD-EPI)NonAf (60.0-200.0) BUN/Creatinine Ratio (12.00-20.00) Ratio Glucose (70-110) mg/dL POC Glucose (mg/dL) 144 H 140 H 163 H (75-99) mg/dL Calcium (8.7-10.3) mg/dL Total Protein (6.2-8.2) g/dL Albumin (3.8-4.9) g/dL Albumin/Globulin Ratio (1.60-3.17) g/dL Hep Bs Antibody (Nonreactive) Hep B Core Total Ab (Nonreactive) 10/22/21 Range/Units 20:53 WBC (4.50-10.00) X 10*3/uL RBC (4.10-5.20) X 10*6/uL Hgb (12.0-15.0) g/dL Hct (37.2-46.3) % MCHC (32.0-37.0) g/dL RDW (11.5-14.5) % Absolute Nucleated RBC (0.00-0.00) X 10*3/uL Immature Gran # (0.00-0.04) X 10*3/uL Neutrophils # (1.80-7.70) X 10*3/uL Lymphocytes # (0.90-5.00) X 10*3/uL Eosinophils # (0.04-0.35) X 10*3/uL NRBC/100 WBC Diff (0.0-0.0) /100 WBCS BUN (9.0-27.0) mg/dL Creatinine (0.6-1.5) mg/dL Est GFR (CKD-EPI)AfAm (60.0-200.0) Est GFR (CKD-EPI)NonAf (60.0-200.0) BUN/Creatinine Ratio (12.00-20.00) Ratio Glucose (70-110) mg/dL POC Glucose (mg/dL) 171 H (75-99) mg/dL Calcium (8.7-10.3) mg/dL Total Protein (6.2-8.2) g/dL Albumin (3.8-4.9) g/dL Albumin/Globulin Ratio (1.60-3.17) g/dL Hep Bs Antibody (Nonreactive) Hep B Core Total Ab (Nonreactive) Microbiology - Last 24 Hours (Table) 10/21/21 21:27 Urine Culture - Preliminary Urine,Catheterized Assessment and Plan (1) Abdominal wall hematoma Current Visit: Yes Status: Acute Code(s): S30.1XXA - CONTUSION OF ABDOMINAL WALL, INITIAL ENCOUNTER SNOMED Code(s): 653667280 (2) Acute blood loss anemia Current Visit: Yes Status: Acute Code(s): D62 - ACUTE POSTHEMORRHAGIC ANEMIA SNOMED Code(s): 131099898 (3) Acute exacerbation of congestive heart failure Current Visit: Yes Status: Acute Code(s): I50.9 - HEART FAILURE, UNSPECIFIED SNOMED Code(s): 784168326 (4) Asthma with acute exacerbation Current Visit: Yes Status: Acute Code(s): J45.901 - UNSPECIFIED ASTHMA WITH (ACUTE) EXACERBATION SNOMED Code(s): 581090396 (5) Diabetes type 2, uncontrolled Current Visit: Yes Status: Acute Code(s): E11.65 - TYPE 2 DIABETES MELLITUS WITH HYPERGLYCEMIA SNOMED Code(s): 418482453 (6) Elevated troponin Current Visit: Yes Status: Acute Code(s): R77.8 - OTHER SPECIFIED ABNORMALITIES OF PLASMA PROTEINS SNOMED Code(s): 196748826 (7) Gross hematuria Current Visit: Yes Status: Acute Code(s): R31.0 - GROSS HEMATURIA SNOMED Code(s): 586750206 (8) Hypertension Current Visit: Yes Status: Acute Code(s): I10 - ESSENTIAL (PRIMARY) HYPERTENSION SNOMED Code(s): 78831542 Plan: Comments plan: At this time patient is started therapies. Currently two-person assist for bed mobility. Having difficulty participating with transfers otherwise. At this time would require 24/7 care multiple persons. Does not appear ready for full inpatient rehab yet. We'll follow closely with yourself for possibly the future. Otherwise should begin to consider SNF placement.
[2021-10-23 06:56] LABS: Glucose,Whole Blood 69 mg/dL (75-99)
[2021-10-23] MEDS: INSULIN ASPART (NovoLOG) 100 UNIT/ML VIAL SQ SCH ×4 (07:10→22:23)
[2021-10-23 07:40] LABS: Glucose,Whole Blood 75 mg/dL (75-99)
[2021-10-23] MEDS: predniSONE 20 MG TAB PO SCH (08:21)
[2021-10-23] MEDS: DOCUSATE 100 MG CAP PO SCH ×2 (08:21→22:23)
[2021-10-23] MEDS: OXYBUTYNIN 10 MG TAB.ER.24 PO SCH (08:21)
[2021-10-23] MEDS: glipiZIDE 5 MG TAB PO SCH ×3 (08:21→22:23)
[2021-10-23] MEDS: EZETIMIBE 10 MG TAB PO SCH (08:21)
[2021-10-23] MEDS: amLODIPine 10 MG TAB PO SCH (08:21)
[2021-10-23] MEDS: prednisoLONE ACETATE 1% OPHTH DROPS 5 ML BTL BOTH EYES SCH ×4 (08:21→22:24)
[2021-10-23] MEDS: IPRATROPIUM-ALBUTEROL 3 ML NEB INHALATION PRN ×3 (08:46→20:19)
[2021-10-23] MEDS: PANTOPRAZOLE 40 MG/10 ML VIAL IVP SCH (09:24)
[2021-10-23 10:07] LABS: Basophils % (A) 0 %; Eosinophils % (A) 0 %; HCT 25.5 % (34.0-46.0); HGB 8.2 gm/dL (11.4-16.0); Hypochromasia Moderate; Lymphocytes % (A) 8 %; MCH 30.7 pg (25.0-35.0); MCHC 32.4 g/dL (31.0-37.0); MCV 94.8 fL (80.0-100.0); Mean Platelet Volume 8.4; Monocytes # (A) 0.7 k/uL (0-1.0); Monocytes % (A) 5 %; Neutrophils # (A) 11.7 k/uL (1.3-7.7); Neutrophils % (A) 86 %; Platelet Count 177 k/uL (150-450); RBC 2.68 m/uL (3.80-5.40); RDW 15.2 % (11.5-15.5); WBC 13.6 k/uL (3.8-10.6)
[2021-10-23 10:25] LABS: ALT 24 U/L (4-34); AST 28 U/L (14-36); African American GFR (CKD) 32 (>60 ml/min/1.73 sqM); Albumin 2.5 g/dL (3.5-5.0); Albumin/Globulin Ratio 0.8; Alkaline Phosphatase 87 U/L (38-126); Anion Gap 4 mmol/L; Blood Urea Nitrogen 80 mg/dL (7-17); Calcium 7.6 mg/dL (8.4-10.2); Carbon Dioxide 33 mmol/L (22-30); Chloride 99 mmol/L (98-107); Glucose 102 mg/dL (74-99); Non-African American GFR(CKD) 28 (>60 ml/min/1.73 sqM); Potassium 3.8 mmol/L (3.5-5.1); Sodium 136 mmol/L (137-145); Total Bilirubin 0.5 mg/dL (0.2-1.3); Total Protein 5.5 g/dL (6.3-8.2)
--- NOTE | 2021-10-23 11:17 | P.PN ---
Subjective Progress Note Date: 10/23/21 CHIEF COMPLAINT: Abdominal wall hematoma HISTORY OF PRESENT ILLNESS: Surgical service is following regards to patient's abdominal wall hematoma. She currently denies any abdominal pain. She is having bowel movements and flatus. She's tolerating diet. Patient is receiving iron. Hemoglobin is 7.4. Afebrile. WBC up at 13.6. Hemoglobin trending up from 7.4-8.2 platelets 177 PHYSICAL EXAM: VITAL SIGNS: Reviewed. GENERAL: Well-developed in no acute distress. HEENT: No sclera icterus. Extraocular movements grossly intact. Moist buccal mucosa. Head is atraumatic, normocephalic. ABDOMEN: Soft. Nondistended. Nontender. NEUROLOGIC: Alert and oriented. Cranial nerves II through XII grossly intact. ASSESSMENT: 1. Abdominal wall hematoma 2. Acute blood loss anemia due to heparin and abdominal wall hematoma 3. Hypertensive emergency improved 4. Acute kidney injury 5. Hematuria followed by urology. They're recommending outpatient cystoscopy PLAN: -Continue conservative management -Continue abdominal binder -Continue to monitor hemoglobin -Continue to hold anticoagulation Physician Software Support Analyst note has been reviewed by physician. Signing provider agrees with the documented findings, assessment, and plan of care. Objective - Vital Signs Vital signs: Vital Signs Temp 98.1 F 10/23/21 07:00 Pulse 80 10/23/21 08:57 Resp 18 10/23/21 07:35 BP 180/68 10/23/21 07:00 Pulse Ox 96 10/23/21 07:00 Intake & Output 10/22/21 10/23/21 10/23/21 18:59 06:59 18:59 Output Total 1200 950 Balance -1200 -950 Weight 125 kg Output: Urine 1200 950 Other: Voiding Method Indwelling Catheter External Catheter External Catheter # Bowel Movements 1 - Labs CBC & Chem 7: 10/23/21 09:45 10/23/21 09:45 Labs: Abnormal Lab Results - Last 24 Hours (Table) 10/21/21 10/22/21 10/22/21 Range/Units 06:01 11:39 16:42 WBC (3.8-10.6) k/uL RBC (3.80-5.40) m/uL Hgb (11.4-16.0) gm/dL Hct (34.0-46.0) % Neutrophils # (1.3-7.7) k/uL Sodium (137-145) mmol/L Carbon Dioxide (22-30) mmol/L BUN (7-17) mg/dL Creatinine (0.52-1.04) mg/dL Glucose (74-99) mg/dL POC Glucose (mg/dL) 140 H 163 H (75-99) mg/dL Calcium (8.4-10.2) mg/dL Total Protein (6.3-8.2) g/dL Albumin (3.5-5.0) g/dL Hep Bs Antibody Reactive A (Nonreactive) Hep B Core Total Ab Reactive A (Nonreactive) 10/22/21 10/23/21 10/23/21 Range/Units 20:53 06:49 09:45 WBC 13.6 H (3.8-10.6) k/uL RBC 2.68 L (3.80-5.40) m/uL Hgb 8.2 L (11.4-16.0) gm/dL Hct 25.5 L (34.0-46.0) % Neutrophils # 11.7 H (1.3-7.7) k/uL Sodium (137-145) mmol/L Carbon Dioxide (22-30) mmol/L BUN (7-17) mg/dL Creatinine (0.52-1.04) mg/dL Glucose (74-99) mg/dL POC Glucose (mg/dL) 171 H 69 L (75-99) mg/dL Calcium (8.4-10.2) mg/dL Total Protein (6.3-8.2) g/dL Albumin (3.5-5.0) g/dL Hep Bs Antibody (Nonreactive) Hep B Core Total Ab (Nonreactive) 10/23/21 Range/Units 09:45 WBC (3.8-10.6) k/uL RBC (3.80-5.40) m/uL Hgb (11.4-16.0) gm/dL Hct (34.0-46.0) % Neutrophils # (1.3-7.7) k/uL Sodium 136 L (137-145) mmol/L Carbon Dioxide 33 H (22-30) mmol/L BUN 80 H (7-17) mg/dL Creatinine 1.74 H (0.52-1.04) mg/dL Glucose 102 H (74-99) mg/dL POC Glucose (mg/dL) (75-99) mg/dL Calcium 7.6 L (8.4-10.2) mg/dL Total Protein 5.5 L (6.3-8.2) g/dL Albumin 2.5 L (3.5-5.0) g/dL Hep Bs Antibody (Nonreactive) Hep B Core Total Ab (Nonreactive) Microbiology - Last 24 Hours (Table) 10/21/21 21:27 Urine Culture - Preliminary Urine,Catheterized
[2021-10-23 11:22] LABS: Glucose,Whole Blood 72 mg/dL (75-99)
[2021-10-23] MEDS: SODIUM FERRIC GLUCONAT-SUCROSE 125 MG in SODIUM CHLORIDE 0.9% 100 ML IVPB SCH (12:24)
--- NOTE | 2021-10-23 12:25 | P.PN ---
Subjective Progress Note Date: 10/22/21 Patient is a 75-year-old female with a known history of asthma, history of CVA/TIA with no residual weakness, diabetes type 2, hypertension, hyperlipidemia, rheumatoid arthritis on prednisone daily presents to ER with complaints of shortness of breath started around 4 AM this morning. Patient felt like chest congestion and denied any chest pain. Patient states that she is having mild cough and congestion for the past couple of days. Denied any worsening leg swelling than usual. Patient was having worsening symptoms and called EMS. Denied any fever or chills. No nausea vomiting or abdominal pain or diarrhea. No headache or dizziness or diaphoresis. He states that she is fully vaccinated for code 19 infection. Denied any loss of taste or smell sensation. Laboratory data on admission showed WBC 7.3 hemoglobin 8.6 and platelets 204 BUN 29 and creatinine 1.36 Magnesium 1.3 troponin 0.057 and 4.360 ProBNP 2540 and covid-19 PCR not detected. Chest x-ray showed a vague reticular nodular density throughout the right lung may reflect developing infiltrate. Correlate clinically. This is Dr. Shelby dictating I am assuming care of this patient is still [facility] were covering for me up to this point On 10/14/2021 patient was seen and examined on the telemetry floor she is alert and oriented 3 in no apparent distress there is no fever or chills no headache or dizziness no chest pain no shortness of breath she has occasional cough with minimal sputum production there is no nausea or vomiting no abdominal pain no diarrhea no blood in the stools no burning with urination no frequency or urgency and no hematuria. Patient had blood culture initially reported this morning as positive for gram-positive cocci, she was started on IV vancomycin, infectious disease consultation was requested, however subsequently, culture was reported as coag-negative gram-positive cocci possible contamination, IV vancomycin was discontinued. On 10/15/2021 patient was seen and examined on the telemetry floor she is alert and oriented 3 in no apparent distress she is complaining of cough and occasional wheezing otherwise she denies any complaints there is no fever or chills no headache or dizziness no chest pain no shortness of breath, there is no nausea or vomiting no abdominal pain no diarrhea no blood in the stools no burning with urination no frequency or urgency and no hematuria. At this time will continue with IV antibiotics and recheck chest x-ray in a.m. On 10/16/2021 patient alert and oriented 3. Patient currently maintained on IV antibiotics, IV steroids, IV Lasix and heparin drip. Patient reports some improvement. Patient stopping significant wheezing. Chest x-ray ordered. Patient denies chest pain. Patient denies nausea vomiting or diarrhea. Patient denies any urinary burning or frequency On 10/17/2021 patient was seen and examined in the ICU she is alert and oriented 3 in no apparent distress, currently this morning patient had sharp abdominal pain, A team were called. Computed tomography scan of the abdomen was done and revealed evidence of abdominal wall hematoma she was transferred to intensive care unit she had evidence of anemia she received 2 units of red blood cell transfusion IV heparin was discontinued. she is complaining of cough and occasional wheezing otherwise she denies any complaints there is no fever or chills no headache or dizziness no chest pain no shortness of breath, there is no nausea or vomiting no abdominal pain no diarrhea no blood in the stools no burning with urination no frequency or urgency and no hematuria. At this time will continue with IV antibiotics and recheck chest x-ray in a.m. On 10/18/2021 patient remains in the intensive care unit. Patient is alert and oriented 3. Hemoglobin stable at 7.7. Patient does report some abdominal pain with coughing. Creatinine elevated at 3.56 and bun 80. Nephrology services are following. Per nephrology patient will be started on gentle hydration will be given Lasix 80 mg daily. Urology services also consulted. She still complaining of some shortness breath with wheezing. Patient denies chest pain. Patient denies nausea vomiting or diarrhea. Patient denies any urinary burning or frequency On 10/19/2021 patient was seen and examined on the medical floor she is alert and oriented 3 in no apparent distress she is still complaining of cough and complaining of abdominal pain when she coughs, otherwise she denies any complaints at this time,there is no fever or chills no headache or dizziness no chest pain no shortness of breath, no nausea or vomiting no diarrhea no blood in the stools no burning with urination no frequency or urgency and no hematuria . Patient was maintained on IV heparin due to non-STEMI , she developed abdominal wall hematoma , hemoglobin today is down again at 5.8 , will transfuse 1 more unit of red blood cells , and recheck CBC , will follow in a.m. , physical therapy consult was placed On 10/20/2021 patient alert and oriented 3. Patient is currently resting in bed. Patient may require hemodialysis if kidneys continued to decline. Nephrology services are following. Patient maintained on bicarb drip. Labs currently pending. Repeat hemoglobin yesterday after blood transfusion 7.1. Patient denies chest pain or shortness of breath. Patient denies nausea vomiti ng or diarrhea. Patient denies any urinary burning or frequency. Vascular surgery has been consulted for possible hemodialysis catheter placement On 10/21/2021 patient was seen and examined on the medical floor she is alert and oriented in no apparent distress she is complaining of generalized weakness, otherwise she denies any specific complaints, vital exam reveals a temperature of 98.5 pulse 83 respirations 17 blood pressure 145/70 pulse ox 97% on 2 L nasal cannula, white blood count 9.9 hemoglobin 7.3 platelet count 148 sodium 138 potassium 4.5 chloride 99 CO2 25.4 BUN 90.9 creatinine 2.6, patient was started on physical therapy and occupational therapy will continue to monitor closely On 10/22/2021 patient is alert and oriented 3. Patient shivering or shortness of breath. Patient denies nausea vomiting or diarrhea. Patient denies any urinary burning or frequency. Kidney enzymes continue to show improvement. Dr. Coleman will be consulted possible inpatient rehab for discharge Objective - Vital Signs Vital signs: Vital Signs Temp 98.5 F 10/22/21 14:51 Pulse 89 10/22/21 14:51 Resp 20 10/22/21 14:51 BP 160/67 10/22/21 14:51 Pulse Ox 97 10/22/21 15:51 Intake & Output 10/21/21 10/22/21 10/22/21 18:59 06:59 18:59 Output Total 500 Balance -500 Weight 131 kg 131.3 kg Output: Urine 500 Other: Voiding Method Indwelling Catheter Indwelling Catheter Indwelling Catheter # Bowel Movements 1 - Exam In general patient is alert and oriented x 3 in no distress HEENT head normocephalic and atraumatic Neck is supple no JVD no goiter no lymphadenopathy no carotid bruit Chest examination reveals scattered crackles bilaterally with wheezing Cardiac exam reveals regular heart sounds S1 and S2 no gallops no murmurs Abdomen is soft nontender no organomegaly with normal bowel sounds Extremity exam reveals no edema no cyanosis or clubbing Neurological examination reveals no gross focal deficits - Labs CBC & Chem 7: 10/23/21 09:45 10/23/21 09:45 Labs: Abnormal Lab Results - Last 24 Hours (Table) 10/21/21 10/21/21 10/21/21 Range/Units 16:51 20:49 22:12 WBC (4.50-10.00) X 10*3/uL RBC (4.10-5.20) X 10*6/uL Hgb (12.0-15.0) g/dL Hct (37.2-46.3) % MCHC (32.0-37.0) g/dL RDW (11.5-14.5) % Absolute Nucleated RBC (0.00-0.00) X 10*3/uL Immature Gran # (0.00-0.04) X 10*3/uL Neutrophils # (1.80-7.70) X 10*3/uL Lymphocytes # (0.90-5.00) X 10*3/uL Eosinophils # (0.04-0.35) X 10*3/uL NRBC/100 WBC Diff (0.0-0.0) /100 WBCS BUN (9.0-27.0) mg/dL Creatinine (0.6-1.5) mg/dL Est GFR (CKD-EPI)AfAm (60.0-200.0) Est GFR (CKD-EPI)NonAf (60.0-200.0) BUN/Creatinine Ratio (12.00-20.00) Ratio Glucose (70-110) mg/dL POC Glucose (mg/dL) 280 H 297 H (75-99) mg/dL Calcium (8.7-10.3) mg/dL Total Protein (6.2-8.2) g/dL Albumin (3.8-4.9) g/dL Albumin/Globulin Ratio (1.60-3.17) g/dL Stool Occult Blood Positive H (Negative) 10/22/21 10/22/21 10/22/21 Range/Units 06:15 06:15 08:11 WBC 12.55 H (4.50-10.00) X 10*3/uL RBC 2.57 L (4.10-5.20) X 10*6/uL Hgb 7.4 L (12.0-15.0) g/dL Hct 23.5 L (37.2-46.3) % MCHC 31.5 L (32.0-37.0) g/dL RDW 15.6 H (11.5-14.5) % Absolute Nucleated RBC 0.02 H (0.00-0.00) X 10*3/uL Immature Gran # 0.13 H (0.00-0.04) X 10*3/uL Neutrophils # 11.53 H (1.80-7.70) X 10*3/uL Lymphocytes # 0.31 L (0.90-5.00) X 10*3/uL Eosinophils # 0 L (0.04-0.35) X 10*3/uL NRBC/100 WBC Diff 0.2 H (0.0-0.0) /100 WBCS BUN 82.4 H (9.0-27.0) mg/dL Creatinine 2.0 H (0.6-1.5) mg/dL Est GFR (CKD-EPI)AfAm 27.6 L (60.0-200.0) Est GFR (CKD-EPI)NonAf 23.8 L (60.0-200.0) BUN/Creatinine Ratio 41.62 H (12.00-20.00) Ratio Glucose 136 H (70-110) mg/dL POC Glucose (mg/dL) 144 H (75-99) mg/dL Calcium 7.8 L (8.7-10.3) mg/dL Total Protein 5.6 L (6.2-8.2) g/dL Albumin 2.8 L (3.8-4.9) g/dL Albumin/Globulin Ratio 1.00 L (1.60-3.17) g/dL Stool Occult Blood (Negative) 10/22/21 Range/Units 11:39 WBC (4.50-10.00) X 10*3/uL RBC (4.10-5.20) X 10*6/uL Hgb (12.0-15.0) g/dL Hct (37.2-46.3) % MCHC (32.0-37.0) g/dL RDW (11.5-14.5) % Absolute Nucleated RBC (0.00-0.00) X 10*3/uL Immature Gran # (0.00-0.04) X 10*3/uL Neutrophils # (1.80-7.70) X 10*3/uL Lymphocytes # (0.90-5.00) X 10*3/uL Eosinophils # (0.04-0.35) X 10*3/uL NRBC/100 WBC Diff (0.0-0.0) /100 WBCS BUN (9.0-27.0) mg/dL Creatinine (0.6-1.5) mg/dL Est GFR (CKD-EPI)AfAm (60.0-200.0) Est GFR (CKD-EPI)NonAf (60.0-200.0) BUN/Creatinine Ratio (12.00-20.00) Ratio Glucose (70-110) mg/dL POC Glucose (mg/dL) 140 H (75-99) mg/dL Calcium (8.7-10.3) mg/dL Total Protein (6.2-8.2) g/dL Albumin (3.8-4.9) g/dL Albumin/Globulin Ratio (1.60-3.17) g/dL Stool Occult Blood (Negative) Assessment and Plan Plan: 1. Acute non-ST elevated [place] elevated troponin level. Patient started on IV heparin cardiology consultation requested 2. Acute CHF exacerbation, with elevated BNP, 2-D echo completed showing an EF of 55-60%. Patient maintained on IV Lasix 3. Acute asthma exacerbation, patient has known history of asthma, she had severe wheezing on presentation which is improving 4. Right lower lobe pneumonia, maintained on IV Rocephin and IV Zithromax, sputum culture ordered. 5. Acute kidney injury likely prerenal with creatinine level I.36 on admission. 6. hypomagnesemia 1.3 on admission , replaced. 7. Underlying history of Hypertension 8. Hyperlipidemia 9. Rheumatoid arthritis on prednisone 5 mg daily 10. Normocytic anemia/anemia of chronic disease 11. 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 12. Morbid obesity BMI 40.2 13. Positive blood culture. Infectious disease services are following likely contamination 14. Abdominal wall hematoma and anemia, IV heparin was discontinued patient transferred to intensive care unit and received 2 units of red blood cell transfusion 15. Acute kidney injury secondary to ATN secondary to acute blood loss anemia. Oliguric. Neurology services have been consulted. Nephrology services are following. Patient maintained on bicarb drip. Patient may require hemodialysis if kidneys continued to decline. Vascular surgery consulted for possible hemodialysis catheter placement Critical care services, cardiology services, nephrology services, infectious disease services, neurology services and surgical services are following Continue IV antibiotics Continue to monitor hemoglobin closely repeat labs ordered
--- NOTE | 2021-10-23 12:28 | P.PN ---
Subjective Progress Note Date: 10/23/21 Patient is a 75-year-old female with a known history of asthma, history of CVA/TIA with no residual weakness, diabetes type 2, hypertension, hyperlipidemia, rheumatoid arthritis on prednisone daily presents to ER with complaints of shortness of breath started around 4 AM this morning. Patient felt like chest congestion and denied any chest pain. Patient states that she is having mild cough and congestion for the past couple of days. Denied any worsening leg swelling than usual. Patient was having worsening symptoms and called EMS. Denied any fever or chills. No nausea vomiting or abdominal pain or diarrhea. No headache or dizziness or diaphoresis. He states that she is fully vaccinated for code 19 infection. Denied any loss of taste or smell sensation. Laboratory data on admission showed WBC 7.3 hemoglobin 8.6 and platelets 204 BUN 29 and creatinine 1.36 Magnesium 1.3 troponin 0.057 and 4.360 ProBNP 2540 and covid-19 PCR not detected. Chest x-ray showed a vague reticular nodular density throughout the right lung may reflect developing infiltrate. Correlate clinically. This is Dr. Shelby dictating I am assuming care of this patient is still [facility] were covering for me up to this point On 10/14/2021 patient was seen and examined on the telemetry floor she is alert and oriented 3 in no apparent distress there is no fever or chills no headache or dizziness no chest pain no shortness of breath she has occasional cough with minimal sputum production there is no nausea or vomiting no abdominal pain no diarrhea no blood in the stools no burning with urination no frequency or urgency and no hematuria. Patient had blood culture initially reported this morning as positive for gram-positive cocci, she was started on IV vancomycin, infectious disease consultation was requested, however subsequently, culture was reported as coag-negative gram-positive cocci possible contamination, IV vancomycin was discontinued. On 10/15/2021 patient was seen and examined on the telemetry floor she is alert and oriented 3 in no apparent distress she is complaining of cough and occasional wheezing otherwise she denies any complaints there is no fever or chills no headache or dizziness no chest pain no shortness of breath, there is no nausea or vomiting no abdominal pain no diarrhea no blood in the stools no burning with urination no frequency or urgency and no hematuria. At this time will continue with IV antibiotics and recheck chest x-ray in a.m. On 10/16/2021 patient alert and oriented 3. Patient currently maintained on IV antibiotics, IV steroids, IV Lasix and heparin drip. Patient reports some improvement. Patient stopping significant wheezing. Chest x-ray ordered. Patient denies chest pain. Patient denies nausea vomiting or diarrhea. Patient denies any urinary burning or frequency On 10/17/2021 patient was seen and examined in the ICU she is alert and oriented 3 in no apparent distress, currently this morning patient had sharp abdominal pain, A team were called. Computed tomography scan of the abdomen was done and revealed evidence of abdominal wall hematoma she was transferred to intensive care unit she had evidence of anemia she received 2 units of red blood cell transfusion IV heparin was discontinued. she is complaining of cough and occasional wheezing otherwise she denies any complaints there is no fever or chills no headache or dizziness no chest pain no shortness of breath, there is no nausea or vomiting no abdominal pain no diarrhea no blood in the stools no burning with urination no frequency or urgency and no hematuria. At this time will continue with IV antibiotics and recheck chest x-ray in a.m. On 10/18/2021 patient remains in the intensive care unit. Patient is alert and oriented 3. Hemoglobin stable at 7.7. Patient does report some abdominal pain with coughing. Creatinine elevated at 3.56 and bun 80. Nephrology services are following. Per nephrology patient will be started on gentle hydration will be given Lasix 80 mg daily. Urology services also consulted. She still complaining of some shortness breath with wheezing. Patient denies chest pain. Patient denies nausea vomiting or diarrhea. Patient denies any urinary burning or frequency On 10/19/2021 patient was seen and examined on the medical floor she is alert and oriented 3 in no apparent distress she is still complaining of cough and complaining of abdominal pain when she coughs, otherwise she denies any complaints at this time,there is no fever or chills no headache or dizziness no chest pain no shortness of breath, no nausea or vomiting no diarrhea no blood in the stools no burning with urination no frequency or urgency and no hematuria . Patient was maintained on IV heparin due to non-STEMI , she developed abdominal wall hematoma , hemoglobin today is down again at 5.8 , will transfuse 1 more unit of red blood cells , and recheck CBC , will follow in a.m. , physical therapy consult was placed On 10/20/2021 patient alert and oriented 3. Patient is currently resting in bed. Patient may require hemodialysis if kidneys continued to decline. Nephrology services are following. Patient maintained on bicarb drip. Labs currently pending. Repeat hemoglobin yesterday after blood transfusion 7.1. Patient denies chest pain or shortness of breath. Patient denies nausea vomiti ng or diarrhea. Patient denies any urinary burning or frequency. Vascular surgery has been consulted for possible hemodialysis catheter placement On 10/21/2021 patient was seen and examined on the medical floor she is alert and oriented in no apparent distress she is complaining of generalized weakness, otherwise she denies any specific complaints, vital exam reveals a temperature of 98.5 pulse 83 respirations 17 blood pressure 145/70 pulse ox 97% on 2 L nasal cannula, white blood count 9.9 hemoglobin 7.3 platelet count 148 sodium 138 potassium 4.5 chloride 99 CO2 25.4 BUN 90.9 creatinine 2.6, patient was started on physical therapy and occupational therapy will continue to monitor closely On 10/22/2021 patient is alert and oriented 3. Patient shivering or shortness of breath. Patient denies nausea vomiting or diarrhea. Patient denies any urinary burning or frequency. Kidney enzymes continue to show improvement. Dr. Coleman will be consulted possible inpatient rehab for discharge On 10/23/2021 patient is alert and oriented 3 creatinine improving to 1.74 and bun 80. Blood pressure is elevated. We'll resume patient's home medication of Lopressor. IPR vs ecf for d/c social work services following. Denies chest pain or shortness breath denies vomiting or diarrhea. Denies urinary burning or frequency Objective - Vital Signs Vital signs: Vital Signs Temp 98.1 F 10/23/21 07:00 Pulse 80 10/23/21 08:57 Resp 18 10/23/21 07:35 BP 180/68 10/23/21 07:00 Pulse Ox 96 10/23/21 07:00 Intake & Output 10/22/21 10/23/21 10/23/21 18:59 06:59 18:59 Output Total 1200 950 Balance -1200 -950 Weight 125 kg Output: Urine 1200 950 Other: Voiding Method Indwelling Catheter External Catheter External Catheter # Bowel Movements 1 - Exam In general patient is alert and oriented x 3 in no distress HEENT head normocephalic and atraumatic Neck is supple no JVD no goiter no lymphadenopathy no carotid bruit Chest examination reveals scattered crackles bilaterally with wheezing Cardiac exam reveals regular heart sounds S1 and S2 no gallops no murmurs Abdomen is soft nontender no organomegaly with normal bowel sounds Extremity exam reveals no edema no cyanosis or clubbing Neurological examination reveals no gross focal deficits - Labs CBC & Chem 7: 10/23/21 09:45 10/23/21 09:45 Labs: Abnormal Lab Results - Last 24 Hours (Table) 10/21/21 10/22/21 10/22/21 Range/Units 06:01 16:42 20:53 WBC (3.8-10.6) k/uL RBC (3.80-5.40) m/uL Hgb (11.4-16.0) gm/dL Hct (34.0-46.0) % Neutrophils # (1.3-7.7) k/uL Sodium (137-145) mmol/L Carbon Dioxide (22-30) mmol/L BUN (7-17) mg/dL Creatinine (0.52-1.04) mg/dL Glucose (74-99) mg/dL POC Glucose (mg/dL) 163 H 171 H (75-99) mg/dL Calcium (8.4-10.2) mg/dL Total Protein (6.3-8.2) g/dL Albumin (3.5-5.0) g/dL Hep Bs Antibody Reactive A (Nonreactive) Hep B Core Total Ab Reactive A (Nonreactive) 10/23/21 10/23/21 10/23/21 Range/Units 06:49 09:45 09:45 WBC 13.6 H (3.8-10.6) k/uL RBC 2.68 L (3.80-5.40) m/uL Hgb 8.2 L (11.4-16.0) gm/dL Hct 25.5 L (34.0-46.0) % Neutrophils # 11.7 H (1.3-7.7) k/uL Sodium 136 L (137-145) mmol/L Carbon Dioxide 33 H (22-30) mmol/L BUN 80 H (7-17) mg/dL Creatinine 1.74 H (0.52-1.04) mg/dL Glucose 102 H (74-99) mg/dL POC Glucose (mg/dL) 69 L (75-99) mg/dL Calcium 7.6 L (8.4-10.2) mg/dL Total Protein 5.5 L (6.3-8.2) g/dL Albumin 2.5 L (3.5-5.0) g/dL Hep Bs Antibody (Nonreactive) Hep B Core Total Ab (Nonreactive) 10/23/21 Range/Units 11:18 WBC (3.8-10.6) k/uL RBC (3.80-5.40) m/uL Hgb (11.4-16.0) gm/dL Hct (34.0-46.0) % Neutrophils # (1.3-7.7) k/uL Sodium (137-145) mmol/L Carbon Dioxide (22-30) mmol/L BUN (7-17) mg/dL Creatinine (0.52-1.04) mg/dL Glucose (74-99) mg/dL POC Glucose (mg/dL) 72 L (75-99) mg/dL Calcium (8.4-10.2) mg/dL Total Protein (6.3-8.2) g/dL Albumin (3.5-5.0) g/dL Hep Bs Antibody (Nonreactive) Hep B Core Total Ab (Nonreactive) Microbiology - Last 24 Hours (Table) 10/21/21 21:27 Urine Culture - Preliminary Urine,Catheterized Assessment and Plan Plan: 1. Acute non-ST elevated [place] elevated troponin level. Patient started on IV heparin cardiology consultation requested 2. Acute CHF exacerbation, with elevated BNP, 2-D echo completed showing an EF of 55-60%. Patient maintained on IV Lasix 3. Acute asthma exacerbation, patient has known history of asthma, she had severe wheezing on presentation which is improving 4. Right lower lobe pneumonia, maintained on IV Rocephin and IV Zithromax, sputum culture ordered. 5. Acute kidney injury likely prerenal with creatinine level I.36 on admission. 6. hypomagnesemia 1.3 on admission , replaced. 7. Underlying history of Hypertension 8. Hyperlipidemia 9. Rheumatoid arthritis on prednisone 5 mg daily 10. Normocytic anemia/anemia of chronic disease 11. 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 12. Morbid obesity BMI 40.2 13. Positive blood culture. Infectious disease services are following likely contamination 14. Abdominal wall hematoma and anemia, IV heparin was discontinued patient transferred to intensive care unit and received 2 units of red blood cell transfusion 15. Acute kidney injury secondary to ATN secondary to acute blood loss anemia. Oliguric. Neurology services have been consulted. Nephrology services are following. Improving Critical care services, cardiology services, nephrology services, infectious disease services, neurology services and surgical services are following Continue IV antibiotics Continue to monitor hemoglobin closely repeat labs ordered
[2021-10-23 17:11] LABS: Glucose,Whole Blood 139 mg/dL (75-99)
--- NOTE | 2021-10-23 20:11 | PN ---
PROGRESS NOTE Patient is seen for followup for acute kidney injury. She was maintained on IV fluids. Renal function has been improving. However, yesterday patient was quite short of breath and she received a dose of IV Lasix. She is doing fairly okay today with improvement in her respiratory status this morning. PHYSICAL EXAMINATION: This morning blood pressure was 180/68, heart rate of 83 per minute. Patient is afebrile. Examination of the heart S1, S2. Examination of the lungs upper airway sounds are heard. Occasional wheezing is heard bilaterally. Abdomen: Soft. Obese. Examination of lower extremities shows edema 1+ bilaterally. LAB: Show hemoglobin 8.2, sodium 136, potassium 3.8, BUN 80, serum creatinine 1.74. ASSESSMENT: 1. Acute kidney injury, ATN, currently improving off IV fluids, status post one dose of Lasix yesterday. 2. Iron deficiency, maintained on IV iron. 3. Mild volume overload, currently off IV fluids. We will repeat another dose of Lasix tomorrow. Respiratory status is better. 4. Coagulase-negative Staph bacteremia with repeat blood cultures negative. 5. Chronic kidney disease stage 3, baseline creatinine about 1.3 with microalbuminuria etiology is diabetic nephropathy and nephrosclerosis. 6. Metabolic acidosis associated with acute kidney injury, now improved. 7. Anemia with positive stool for occult blood and iron deficiency, receiving IV iron. PLAN: Continue off IV fluids. Repeat Lasix tomorrow a.m. Encourage increased oral intake. MMODL / IJN: [id number] /
[2021-10-23 21:23] LABS: Glucose,Whole Blood 166 mg/dL (75-99)
[2021-10-23] MEDS: MONTELUKAST 10 MG TAB PO SCH (22:23)
--- NOTE | 2021-10-23 22:59 | PN ---
PROGRESS NOTE DATE OF SERVICE: 10/23/2021 REASON FOR FOLLOWUP: UTI. INTERVAL HISTORY: Patient is afebrile. The patient is breathing slightly comfortably. Denies any chest pain. Did have a cough, not bringing up any sputum. No abdominal pain. Foley catheter has been discontinued. PHYSICAL EXAMINATION: Blood pressure 147/66, pulse 83, temperature 98.2. She is 97% on room air. General description is an elderly female up in the bed in no distress. Respiratory system: Unlabored breathing, coarse breath sounds in the base. No wheeze. Heart S1, S2. Regular rate and rhythm. Abdomen: Soft, slightly distended. LABS: Hemoglobin 8.8, white count 13.6, creatinine 1.74. DIAGNOSTIC IMPRESSION AND PLAN: 1. Patient with a positive blood culture with coagulase negative Staph likely skin contaminant, repeat negative. 2. Patient with urinary tract infection. Urine culture pending. Continue with Rocephin. White count slightly elevated and we will monitor closely. Continue supportive care. MMODL / IJN: [id number] /
[2021-10-24] MEDS: LEVOTHYROXINE 25 MCG TAB PO SCH (06:13)
[2021-10-24 06:59] LABS: Glucose,Whole Blood 67 mg/dL (75-99)
[2021-10-24 07:23] LABS: Glucose,Whole Blood 75 mg/dL (75-99)
[2021-10-24] MEDS: INSULIN ASPART (NovoLOG) 100 UNIT/ML VIAL SQ SCH ×4 (07:37→20:39)
[2021-10-24] MEDS: glipiZIDE 5 MG TAB PO SCH ×3 (07:55→22:35)
[2021-10-24] MEDS: PANTOPRAZOLE 40 MG/10 ML VIAL IVP SCH (08:04)
[2021-10-24] MEDS: predniSONE 20 MG TAB PO SCH (08:04)
[2021-10-24] MEDS: amLODIPine 10 MG TAB PO SCH (08:04)
[2021-10-24] MEDS: METOPROLOL SUCCINATE (ER) 25 MG TAB.ER.24H PO SCH (08:04)
[2021-10-24] MEDS: DOCUSATE 100 MG CAP PO SCH ×2 (08:04→20:40)
[2021-10-24] MEDS: EZETIMIBE 10 MG TAB PO SCH (08:05)
[2021-10-24] MEDS: OXYBUTYNIN 10 MG TAB.ER.24 PO SCH (08:05)
[2021-10-24 09:55] LABS: Basophils # (A) 0.03 X 10*3/uL (0.00-0.10); Basophils % (A) 0.3 %; Eosinophils # (A) 0.02 X 10*3/uL (0.04-0.35); Eosinophils % (A) 0.2 %; HCT 27.6 % (37.2-46.3); HGB 8.2 g/dL (12.0-15.0); MCH 28.8 pg (27.0-32.0); MCHC 29.7 g/dL (32.0-37.0); MCV 96.8 fL (80.0-97.0); Mean Platelet Volume 11.2 fL (9.5-12.2); Monocytes # (A) 0.59 X 10*3/uL (0.20-1.00); Monocytes % (A) 5.3 %; Neutrophils # (A) 9.03 X 10*3/uL (1.80-7.70); Neutrophils % (A) 80.8 %; Platelet Count 194 X 10*3/uL (140-440); RBC 2.85 X 10*6/uL (4.10-5.20); RDW 15.4 % (11.5-14.5); WBC 11.16 X 10*3/uL (4.50-10.00)
[2021-10-24] MEDS: prednisoLONE ACETATE 1% OPHTH DROPS 5 ML BTL BOTH EYES SCH ×4 (10:03→22:34)
[2021-10-24 10:34] LABS: African American GFR (CKD) 50.5 (60.0-200.0); Albumin 2.8 g/dL (3.8-4.9); Albumin/Globulin Ratio 1.08 (1.60-3.17); Anion Gap 13.5 mmol/L (10.00-18.00); BUN/Creat Ratio 52.67 Ratio (12.00-20.00); Blood Urea Nitrogen 63.2 mg/dL (9.0-27.0); Calcium 7.8 mg/dL (8.7-10.3); Carbon Dioxide 26.5 mmol/L (20.0-27.5); Globulin 2.6 g/dL (1.6-3.3); Non-African American GFR(CKD) 43.6 (60.0-200.0); Potassium 4.4 mmol/L (3.5-5.5); Total Bilirubin 0.4 mg/dL (0.30-1.20); Total Protein 5.4 g/dL (6.2-8.2)
[2021-10-24 11:29] LABS: Glucose,Whole Blood 90 mg/dL (75-99)
[2021-10-24] MEDS: IPRATROPIUM-ALBUTEROL 3 ML NEB INHALATION PRN ×3 (12:22→19:48)
--- NOTE | 2021-10-24 13:36 | P.PN ---
Subjective Progress Note Date: 10/24/21 CHIEF COMPLAINT: Abdominal wall hematoma HISTORY OF PRESENT ILLNESS: Surgical service is following regards to patient's abdominal wall hematoma. She currently denies any abdominal pain. She is having bowel movements and flatus. She's tolerating diet. Patient completed her IV iron. Afebrile. Hemoglobin stable at 8.2 PHYSICAL EXAM: VITAL SIGNS: Reviewed. GENERAL: Well-developed in no acute distress. HEENT: No sclera icterus. Extraocular movements grossly intact. Moist buccal mucosa. Head is atraumatic, normocephalic. ABDOMEN: Soft. Nondistended. Nontender. NEUROLOGIC: Alert and oriented. Cranial nerves II through XII grossly intact. ASSESSMENT: 1. Abdominal wall hematoma. Hemoglobin stable 2. Acute blood loss anemia due to heparin and abdominal wall hematoma 3. Hypertensive emergency improved 4. Acute kidney injury 5. Hematuria followed by urology. They're recommending outpatient cystoscopy PLAN: -Continue conservative management -Continue abdominal binder -Continue to hold anticoagulation -Surgical service will sign off. Please call with any questions or concerns. Physician Group Leader note has been reviewed by physician. Signing provider agrees with the documented findings, assessment, and plan of care. Objective - Vital Signs Vital signs: Vital Signs Temp 97.9 F 10/24/21 07:00 Pulse 86 10/24/21 12:32 Resp 19 10/24/21 07:00 BP 175/76 10/24/21 07:00 Pulse Ox 96 10/24/21 07:00 Intake & Output 10/23/21 10/24/21 10/24/21 18:59 06:59 18:59 Intake Total 500 Output Total 900 550 Balance -900 -550 500 Weight 128.5 kg Intake: Oral 500 Output: Urine 900 550 Other: Voiding Method External Catheter External Catheter External Catheter - Labs CBC & Chem 7: 10/24/21 05:59 10/24/21 05:59 Labs: Abnormal Lab Results - Last 24 Hours (Table) 10/23/21 10/23/21 10/24/21 Range/Units 16:53 21:21 05:59 WBC 11.16 H (4.50-10.00) X 10*3/uL RBC 2.85 L (4.10-5.20) X 10*6/uL Hgb 8.2 L (12.0-15.0) g/dL Hct 27.6 L (37.2-46.3) % MCHC 29.7 L (32.0-37.0) g/dL RDW 15.4 H (11.5-14.5) % Absolute Nucleated RBC 0.07 H (0.00-0.00) X 10*3/uL Immature Gran # 0.49 H (0.00-0.04) X 10*3/uL Neutrophils # 9.03 H (1.80-7.70) X 10*3/uL Eosinophils # 0.02 L (0.04-0.35) X 10*3/uL NRBC/100 WBC Diff 0.6 H (0.0-0.0) /100 WBCS BUN (9.0-27.0) mg/dL Est GFR (CKD-EPI)AfAm (60.0-200.0) Est GFR (CKD-EPI)NonAf (60.0-200.0) BUN/Creatinine Ratio (12.00-20.00) Ratio Glucose (70-110) mg/dL POC Glucose (mg/dL) 139 H 166 H (75-99) mg/dL Calcium (8.7-10.3) mg/dL Total Protein (6.2-8.2) g/dL Albumin (3.8-4.9) g/dL Albumin/Globulin Ratio (1.60-3.17) g/dL 10/24/21 10/24/21 Range/Units 05:59 06:56 WBC (4.50-10.00) X 10*3/uL RBC (4.10-5.20) X 10*6/uL Hgb (12.0-15.0) g/dL Hct (37.2-46.3) % MCHC (32.0-37.0) g/dL RDW (11.5-14.5) % Absolute Nucleated RBC (0.00-0.00) X 10*3/uL Immature Gran # (0.00-0.04) X 10*3/uL Neutrophils # (1.80-7.70) X 10*3/uL Eosinophils # (0.04-0.35) X 10*3/uL NRBC/100 WBC Diff (0.0-0.0) /100 WBCS BUN 63.2 H (9.0-27.0) mg/dL Est GFR (CKD-EPI)AfAm 50.5 L (60.0-200.0) Est GFR (CKD-EPI)NonAf 43.6 L (60.0-200.0) BUN/Creatinine Ratio 52.67 H (12.00-20.00) Ratio Glucose 54 L (70-110) mg/dL POC Glucose (mg/dL) 67 L (75-99) mg/dL Calcium 7.8 L (8.7-10.3) mg/dL Total Protein 5.4 L (6.2-8.2) g/dL Albumin 2.8 L (3.8-4.9) g/dL Albumin/Globulin Ratio 1.08 L (1.60-3.17) g/dL Microbiology - Last 24 Hours (Table) 10/21/21 21:27 Urine Culture - Final Urine,Catheterized
[2021-10-24] MEDS: FUROSEMIDE 10 MG/ML 4 ML VIAL IV SCH ×2 (15:56→20:39)
[2021-10-24 16:34] LABS: Glucose,Whole Blood 243 mg/dL (75-99)
--- NOTE | 2021-10-24 17:18 | P.PN ---
Subjective Progress Note Date: 10/24/21 Patient is a 75-year-old female with a known history of asthma, history of CVA/TIA with no residual weakness, diabetes type 2, hypertension, hyperlipidemia, rheumatoid arthritis on prednisone daily presents to ER with complaints of shortness of breath started around 4 AM this morning. Patient felt like chest congestion and denied any chest pain. Patient states that she is having mild cough and congestion for the past couple of days. Denied any worsening leg swelling than usual. Patient was having worsening symptoms and called EMS. Denied any fever or chills. No nausea vomiting or abdominal pain or diarrhea. No headache or dizziness or diaphoresis. He states that she is fully vaccinated for code 19 infection. Denied any loss of taste or smell sensation. Laboratory data on admission showed WBC 7.3 hemoglobin 8.6 and platelets 204 BUN 29 and creatinine 1.36 Magnesium 1.3 troponin 0.057 and 4.360 ProBNP 2540 and covid-19 PCR not detected. Chest x-ray showed a vague reticular nodular density throughout the right lung may reflect developing infiltrate. Correlate clinically. This is Dr. Shelby dictating I am assuming care of this patient is still [facility] were covering for me up to this point On 10/14/2021 patient was seen and examined on the telemetry floor she is alert and oriented 3 in no apparent distress there is no fever or chills no headache or dizziness no chest pain no shortness of breath she has occasional cough with minimal sputum production there is no nausea or vomiting no abdominal pain no diarrhea no blood in the stools no burning with urination no frequency or urgency and no hematuria. Patient had blood culture initially reported this morning as positive for gram-positive cocci, she was started on IV vancomycin, infectious disease consultation was requested, however subsequently, culture was reported as coag-negative gram-positive cocci possible contamination, IV vancomycin was discontinued. On 10/15/2021 patient was seen and examined on the telemetry floor she is alert and oriented 3 in no apparent distress she is complaining of cough and occasional wheezing otherwise she denies any complaints there is no fever or chills no headache or dizziness no chest pain no shortness of breath, there is no nausea or vomiting no abdominal pain no diarrhea no blood in the stools no burning with urination no frequency or urgency and no hematuria. At this time will continue with IV antibiotics and recheck chest x-ray in a.m. On 10/16/2021 patient alert and oriented 3. Patient currently maintained on IV antibiotics, IV steroids, IV Lasix and heparin drip. Patient reports some improvement. Patient stopping significant wheezing. Chest x-ray ordered. Patient denies chest pain. Patient denies nausea vomiting or diarrhea. Patient denies any urinary burning or frequency On 10/17/2021 patient was seen and examined in the ICU she is alert and oriented 3 in no apparent distress, currently this morning patient had sharp abdominal pain, A team were called. Computed tomography scan of the abdomen was done and revealed evidence of abdominal wall hematoma she was transferred to intensive care unit she had evidence of anemia she received 2 units of red blood cell transfusion IV heparin was discontinued. she is complaining of cough and occasional wheezing otherwise she denies any complaints there is no fever or chills no headache or dizziness no chest pain no shortness of breath, there is no nausea or vomiting no abdominal pain no diarrhea no blood in the stools no burning with urination no frequency or urgency and no hematuria. At this time will continue with IV antibiotics and recheck chest x-ray in a.m. On 10/18/2021 patient remains in the intensive care unit. Patient is alert and oriented 3. Hemoglobin stable at 7.7. Patient does report some abdominal pain with coughing. Creatinine elevated at 3.56 and bun 80. Nephrology services are following. Per nephrology patient will be started on gentle hydration will be given Lasix 80 mg daily. Urology services also consulted. She still complaining of some shortness breath with wheezing. Patient denies chest pain. Patient denies nausea vomiting or diarrhea. Patient denies any urinary burning or frequency On 10/19/2021 patient was seen and examined on the medical floor she is alert and oriented 3 in no apparent distress she is still complaining of cough and complaining of abdominal pain when she coughs, otherwise she denies any complaints at this time,there is no fever or chills no headache or dizziness no chest pain no shortness of breath, no nausea or vomiting no diarrhea no blood in the stools no burning with urination no frequency or urgency and no hematuria . Patient was maintained on IV heparin due to non-STEMI , she developed abdominal wall hematoma , hemoglobin today is down again at 5.8 , will transfuse 1 more unit of red blood cells , and recheck CBC , will follow in a.m. , physical therapy consult was placed On 10/20/2021 patient alert and oriented 3. Patient is currently resting in bed. Patient may require hemodialysis if kidneys continued to decline. Nephrology services are following. Patient maintained on bicarb drip. Labs currently pending. Repeat hemoglobin yesterday after blood transfusion 7.1. Patient denies chest pain or shortness of breath. Patient denies nausea vomiti ng or diarrhea. Patient denies any urinary burning or frequency. Vascular surgery has been consulted for possible hemodialysis catheter placement On 10/21/2021 patient was seen and examined on the medical floor she is alert and oriented in no apparent distress she is complaining of generalized weakness, otherwise she denies any specific complaints, vital exam reveals a temperature of 98.5 pulse 83 respirations 17 blood pressure 145/70 pulse ox 97% on 2 L nasal cannula, white blood count 9.9 hemoglobin 7.3 platelet count 148 sodium 138 potassium 4.5 chloride 99 CO2 25.4 BUN 90.9 creatinine 2.6, patient was started on physical therapy and occupational therapy will continue to monitor closely On 10/22/2021 patient is alert and oriented 3. Patient shivering or shortness of breath. Patient denies nausea vomiting or diarrhea. Patient denies any urinary burning or frequency. Kidney enzymes continue to show improvement. Dr. Coleman will be consulted possible inpatient rehab for discharge On 10/23/2021 patient is alert and oriented 3 creatinine improving to 1.74 and bun 80. Blood pressure is elevated. We'll resume patient's home medication of Lopressor. IPR vs ecf for d/c social work services following. Denies chest pain or shortness breath denies vomiting or diarrhea. Denies urinary burning or frequency On 10/24/2021 patient was seen and examined on the medical floor she is alert and oriented 3 in no apparent distress she is complaining of shortness of breath and wheezing otherwise she denies any complaints there is no fever or chills no headache or dizziness no chest pain she has occasional cough no nausea or vomiting no abdominal pain no diarrhea no blood in the stools no burning with urination no frequency or urgency and no hematuria Objective - Vital Signs Vital signs: Vital Signs Temp 97.9 F 10/24/21 07:00 Pulse 74 10/24/21 07:00 Resp 19 10/24/21 07:00 BP 175/76 10/24/21 07:00 Pulse Ox 96 10/24/21 07:00 Intake & Output 10/23/21 10/24/21 10/24/21 18:59 06:59 18:59 Intake Total 500 Output Total 900 550 Balance -900 -550 500 Weight 128.5 kg Intake: Oral 500 Output: Urine 900 550 Other: Voiding Method External Catheter External Catheter - Exam In general patient is alert and oriented x 3 in no distress HEENT head normocephalic and atraumatic Neck is supple no JVD no goiter no lymphadenopathy no carotid bruit Chest examination reveals scattered crackles bilaterally with wheezing Cardiac exam reveals regular heart sounds S1 and S2 no gallops no murmurs Abdomen is soft nontender no organomegaly with normal bowel sounds Extremity exam reveals no edema no cyanosis or clubbing Neurological examination reveals no gross focal deficits - Labs CBC & Chem 7: 10/24/21 05:59 10/24/21 05:59 Labs: Abnormal Lab Results - Last 24 Hours (Table) 10/23/21 10/23/21 10/23/21 Range/Units 09:45 09:45 11:18 WBC 13.6 H (3.8-10.6) k/uL RBC 2.68 L (3.80-5.40) m/uL Hgb 8.2 L (11.4-16.0) gm/dL Hct 25.5 L (34.0-46.0) % Neutrophils # 11.7 H (1.3-7.7) k/uL Sodium 136 L (137-145) mmol/L Carbon Dioxide 33 H (22-30) mmol/L BUN 80 H (7-17) mg/dL Creatinine 1.74 H (0.52-1.04) mg/dL Glucose 102 H (74-99) mg/dL POC Glucose (mg/dL) 72 L (75-99) mg/dL Calcium 7.6 L (8.4-10.2) mg/dL Total Protein 5.5 L (6.3-8.2) g/dL Albumin 2.5 L (3.5-5.0) g/dL 10/23/21 10/23/21 10/24/21 Range/Units 16:53 21:21 06:56 WBC (3.8-10.6) k/uL RBC (3.80-5.40) m/uL Hgb (11.4-16.0) gm/dL Hct (34.0-46.0) % Neutrophils # (1.3-7.7) k/uL Sodium (137-145) mmol/L Carbon Dioxide (22-30) mmol/L BUN (7-17) mg/dL Creatinine (0.52-1.04) mg/dL Glucose (74-99) mg/dL POC Glucose (mg/dL) 139 H 166 H 67 L (75-99) mg/dL Calcium (8.4-10.2) mg/dL Total Protein (6.3-8.2) g/dL Albumin (3.5-5.0) g/dL Assessment and Plan Plan: 1. Acute non-ST elevated [place] elevated troponin level. Patient started on IV heparin cardiology consultation requested 2. Acute CHF exacerbation, with elevated BNP, 2-D echo completed showing an EF of 55-60%. Patient maintained on IV Lasix 3. Acute asthma exacerbation, patient has known history of asthma, she had severe wheezing on presentation which is improving 4. Right lower lobe pneumonia, maintained on IV Rocephin and IV Zithromax, sputum culture ordered. 5. Acute kidney injury likely prerenal with creatinine level I.36 on admission. 6. hypomagnesemia 1.3 on admission , replaced. 7. Underlying history of Hypertension 8. Hyperlipidemia 9. Rheumatoid arthritis on prednisone 5 mg daily 10. Normocytic anemia/anemia of chronic disease 11. 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 12. Morbid obesity BMI 40.2 13. Positive blood culture. Infectious disease services are following likely contamination 14. Abdominal wall hematoma and anemia, IV heparin was discontinued patient transferred to intensive care unit and received 2 units of red blood cell transfusion 15. Acute kidney injury secondary to ATN secondary to acute blood loss anemia. Oliguric. Neurology services have been consulted. Nephrology services are following. Improving Critical care services, cardiology services, nephrology services, infectious disease services, neurology services and surgical services are following Continue IV antibiotics Continue to monitor hemoglobin closely repeat labs ordered
--- NOTE | 2021-10-24 17:30 | PN ---
PROGRESS NOTE The patient is seen for followup for acute kidney injury. Her renal function has been improving. However, the patient appears to be volume overloaded. She did receive a dose of Lasix on 10/22/2021. I will repeat that again today. PHYSICAL EXAMINATION: On examination today, blood pressure was 186/70, heart rate 82 per minute. Patient is afebrile. Examination of the heart S1, S2. Examination of the lungs, bilateral wheezing is heard. Basal crackles are heard as well. Abdomen is soft, morbidly obese. Examination lower extremities shows edema 1+ bilaterally. LAB: Show sodium 141, potassium 4.4, BUN 63, creatinine 1.2, hemoglobin 8.2 g/dL. ASSESSMENT: 1. Acute kidney injury, currently improving. Renal function continues to improve. Creatinine down to 1.2. The patient is volume-overloaded. I will add a scheduled dose of IV Lasix. 2. Volume overload. Start scheduled dose of loop diuretics. 3. Coagulase-negative Staph bacteremia with repeat blood cultures currently negative. 4. Chronic kidney disease stage 3, baseline creatinine 1.3 secondary to diabetic nephropathy and nephrosclerosis. 5. Anemia with positive stool for occult blood, receiving iron, iron deficiency noted as well. 6. Metabolic acidosis associated with acute kidney injury, now resolved. PLAN: Add IV Lasix 40 mg IV b.i.d. and repeat labs in a.m. MMODL / IJN: [id number] /
[2021-10-24 20:06] LABS: Glucose,Whole Blood 337 mg/dL (75-99)
[2021-10-24] MEDS: MONTELUKAST 10 MG TAB PO SCH (20:40)
[2021-10-24 20:53] VITALS: RESP 16
--- NOTE | 2021-10-24 22:01 | XR ---
EXAMINATION: XR chest 1V DATE AND TIME: 10/24/2021 7:10 PM CLINICAL INDICATION: PHH; Follow-up pneumonia TECHNIQUE: AP portable upright COMPARISON: AP portable upright chest radiograph 10/19/2021 at 2:58 PM FINDINGS: Right upper extremity PICC line tip superimposed over the distal SVC. EKG leads. The lungs appear to be predominantly clear. However, there is indistinctness at the left lung base, l ikely positional, but small left pleural effusion with minimal left lung base atelectasis could be pr esent. Follow-up radiography at full inspiration will delineate. The right pleural spaces negative for effusion. There are no abnormal gas collections. The cardiac silhouette is not enlarged. The skeletal structures and soft tissues are negative for acute findings. IMPRESSION: Mild atelectasis at the left lung base.
--- NOTE | 2021-10-24 23:00 | PN ---
PROGRESS NOTE DATE OF SERVICE: 10/24/2021 REASON FOR FOLLOWUP: 1. Positive blood culture with contamination. 2. UTI. INTERVAL HISTORY: The patient is afebrile. The patient is currently breathing comfortably. The patient denies having any chest pain. The patient is complaining of a cough; not bringing up any sputum. No abdominal pain or diarrhea. PHYSICAL EXAMINATION: Blood pressure 153/72 with a pulse of 80, temperature of 98.7. She is 95% on room air. General description is an elderly female lying in bed in no distress. Respiratory system: Unlabored breathing, decreased intensity of breath sounds. No wheeze. Heart S1, S2. Regular rate and rhythm. Abdomen soft, no tenderness. LABS: No new labs have been obtained today. Repeat urine has come back negative. DIAGNOSTIC IMPRESSION AND PLAN: 1. Patient with a positive blood culture with coagulase-negative Staph, which was likely contaminant. Repeat has been negative. 2. Positive UA concerning for urinary tract infection; covered with Rocephin while waiting for the culture to finalize. Continue with supportive care. MMODL / IJN: [id number] /
[2021-10-25 01:27] VITALS: BP 155/76; TEMP 98.3
[2021-10-25] MEDS: LEVOTHYROXINE 25 MCG TAB PO SCH (05:39)
[2021-10-25 07:00] LABS: Glucose,Whole Blood 128 mg/dL (75-99)
[2021-10-25] MEDS: INSULIN ASPART (NovoLOG) 100 UNIT/ML VIAL SQ SCH ×2 (07:30→12:01)
[2021-10-25] MEDS: predniSONE 20 MG TAB PO SCH (07:38)
[2021-10-25] MEDS: EZETIMIBE 10 MG TAB PO SCH (07:38)
[2021-10-25] MEDS: OXYBUTYNIN 10 MG TAB.ER.24 PO SCH (07:38)
[2021-10-25] MEDS: PANTOPRAZOLE 40 MG/10 ML VIAL IVP SCH (07:38)
[2021-10-25] MEDS: amLODIPine 10 MG TAB PO SCH (07:38)
[2021-10-25] MEDS: DOCUSATE 100 MG CAP PO SCH (07:38)
[2021-10-25] MEDS: glipiZIDE 5 MG TAB PO SCH (07:38)
[2021-10-25] MEDS: METOPROLOL SUCCINATE (ER) 25 MG TAB.ER.24H PO SCH (07:38)
[2021-10-25] MEDS: FUROSEMIDE 10 MG/ML 4 ML VIAL IV SCH (07:38)
[2021-10-25] MEDS: prednisoLONE ACETATE 1% OPHTH DROPS 5 ML BTL BOTH EYES SCH ×2 (07:39→15:15)
[2021-10-25] MEDS: IPRATROPIUM-ALBUTEROL 3 ML NEB INHALATION PRN ×3 (07:43→15:58)
[2021-10-25 10:54] LABS: Basophils # (A) 0.04 X 10*3/uL (0.00-0.10); Basophils % (A) 0.3 %; Eosinophils # (A) 0.04 X 10*3/uL (0.04-0.35); Eosinophils % (A) 0.3 %; HCT 29.5 % (37.2-46.3); HGB 8.7 g/dL (12.0-15.0); Lymphocytes # (A) 1.42 X 10*3/uL (0.90-5.00); Lymphocytes % (A) 10.3 %; MCH 28.5 pg (27.0-32.0); MCHC 29.5 g/dL (32.0-37.0); MCV 96.7 fL (80.0-97.0); Monocytes # (A) 0.39 X 10*3/uL (0.20-1.00); Monocytes % (A) 2.8 %; Neutrophils # (A) 11.55 X 10*3/uL (1.80-7.70); Neutrophils % (A) 84.2 %; Platelet Count 213 X 10*3/uL (140-440); RBC 3.05 X 10*6/uL (4.10-5.20); RDW 15.5 % (11.5-14.5); WBC 13.73 X 10*3/uL (4.50-10.00)
--- NOTE | 2021-10-25 11:11 | P.DS ---
Providers Date of admission: 10/13/21 12:47 Expected date of discharge: 10/25/21 Attending physician: Nenita Shelby Consults: 10/14/21 11:37 Consult Physician Routine Consulting Provider: Luis Angel Alicea Consult Reason/Comments: Bacteremia Do you want consulting provider notified?: Yes 10/16/21 12:18 Consult Physician Routine Consulting Provider: Kj Wilkinson Consult Reason/Comments: pneumonia Do you want consulting provider notified?: Yes 10/18/21 07:12 Consult Physician Routine Consulting Provider: Harsh Bobby Consult Reason/Comments: low uo Do you want consulting provider notified?: Yes 10/18/21 07:44 Consult Physician Urgent Consulting Provider: Gorge Espinoza Consult Reason/Comments: abnormal CT, pelvic mass/hematoma with elongation of the urinary bladder Do you want consulting provider notified?: Yes 10/20/21 09:03 Consult Physician Routine Consulting Provider: Bruno Lizama Consult Reason/Comments: Dialysis catheter placement. need placed 10/21 Do you want consulting provider notified?: Yes 10/22/21 16:18 Consult Physician Routine Consulting Provider: Omar Blas Consult Reason/Comments: physical debility, possible rehab admission Do you want consulting provider notified?: Yes Primary care physician: Nenita Shelby [facility] Course: Discharge diagnosis 1. Acute non-ST elevated AK elevated troponin level. Patient started on IV heparin cardiology consultation requested 2. Acute CHF exacerbation, with elevated BNP, 2-D echo completed showing an EF of 55-60%. Patient maintained on IV Lasix 3. Acute asthma exacerbation, patient has known history of asthma, she had severe wheezing on presentation which is improving 4. Right lower lobe pneumonia, maintained on IV Rocephin and IV Zithromax, sputum culture ordered. 5. Acute kidney injury likely prerenal with creatinine level I.36 on admission. 6. hypomagnesemia 1.3 on admission , replaced. 7. Underlying history of Hypertension 8. Hyperlipidemia 9. Rheumatoid arthritis on prednisone 5 mg daily 10. Normocytic anemia/anemia of chronic disease 11. 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 12. Morbid obesity BMI 40.2 13. Positive blood culture. Infectious disease services are following likely contamination 14. Abdominal wall hematoma and anemia, IV heparin was discontinued patient transferred to intensive care unit and received 2 units of red blood cell transfusion 15. Acute kidney injury secondary to ATN secondary to acute blood loss anemia. Oliguric. Neurology services have been consulted. Nephrology services are following. Improving Hospital course Patient is a 75-year-old female with a known history of asthma, history of CVA/TIA with no residual weakness, diabetes type 2, hypertension, hyperlipidemia, rheumatoid arthritis on prednisone daily presents to ER with complaints of shortness of breath started around 4 AM this morning. Patient felt like chest congestion and denied any chest pain. Patient states that she is having mild cough and congestion for the past couple of days. Denied any worsening leg swelling than usual. Patient was having worsening symptoms and called EMS. Denied any fever or chills. No nausea vomiting or abdominal pain or diarrhea. No headache or dizziness or diaphoresis. He states that she is fully vaccinated for code 19 infection. Denied any loss of taste or smell sensation. Laboratory data on admission showed WBC 7.3 hemoglobin 8.6 and platelets 204 BUN 29 and creatinine 1.36 Magnesium 1.3 troponin 0.057 and 4.360 ProBNP 2540 and covid-19 PCR not detected. Chest x-ray showed a vague reticular nodular density throughout the right lung may reflect developing infiltrate. Correlate clinically. This is Dr. Shelby dictating I am assuming care of this patient is still [facility] were covering for me up to this point On 10/14/2021 patient was seen and examined on the telemetry floor she is alert and oriented 3 in no apparent distress there is no fever or chills no headache or dizziness no chest pain no shortness of breath she has occasional cough with minimal sputum production there is no nausea or vomiting no abdominal pain no diarrhea no blood in the stools no burning with urination no frequency or urgency and no hematuria. Patient had blood culture initially reported this morning as positive for gram-positive cocci, she was started on IV vancomycin, infectious disease consultation was requested, however subsequently, culture was reported as coag-negative gram-positive cocci possible contamination, IV vancomycin was discontinued. On 10/15/2021 patient was seen and examined on the telemetry floor she is alert and oriented 3 in no apparent distress she is complaining of cough and occasional wheezing otherwise she denies any complaints there is no fever or chills no headache or dizziness no chest pain no shortness of breath, there is n o nausea or vomiting no abdominal pain no diarrhea no blood in the stools no burning with urination no frequency or urgency and no hematuria. At this time will continue with IV antibiotics and recheck chest x-ray in a.m. On 10/16/2021 patient alert and oriented 3. Patient currently maintained on IV antibiotics, IV steroids, IV Lasix and heparin drip. Patient reports some improvement. Patient stopping significant wheezing. Chest x-ray ordered. Patient denies chest pain. Patient denies nausea vomiting or diarrhea. Patient denies any urinary burning or frequency On 10/17/2021 patient was seen and examined in the ICU she is alert and oriented 3 in no apparent distress, currently this morning patient had sharp abdominal pain, A team were called. Computed tomography scan of the abdomen was done and revealed evidence of abdominal wall hematoma she was transferred to intensive care unit she had evidence of anemia she received 2 units of red blood cell transfusion IV heparin was discontinued. she is complaining of cough and occasional wheezing otherwise she denies any complaints there is no fever or chills no headache or dizziness no chest pain no shortness of breath, there is no nausea or vomiting no abdominal pain no diarrhea no blood in the stools no burning with urination no frequency or urgency and no hematuria. At this time will continue with IV antibiotics and recheck chest x-ray in a.m. On 10/18/2021 patient remains in the intensive care unit. Patient is alert and oriented 3. Hemoglobin stable at 7.7. Patient does report some abdominal pain with coughing. Creatinine elevated at 3.56 and bun 80. Nephrology services are following. Per nephrology patient will be started on gentle hydration will be given Lasix 80 mg daily. Urology services also consulted. She still complaining of some shortness breath with wheezing. Patient denies chest pain. Patient denies nausea vomiting or diarrhea. Patient denies any urinary burning or frequency On 10/19/2021 patient was seen and examined on the medical floor she is alert and oriented 3 in no apparent distress she is still complaining of cough and complaining of abdominal pain when she coughs, otherwise she denies any complaints at this time,there is no fever or chills no headache or dizziness no chest pain no shortness of breath, no nausea or vomiting no diarrhea no blood in the stools no burning with urination no frequency or urgency and no hematuria . Patient was maintained on IV heparin due to non-STEMI , she developed abdominal wall hematoma , hemoglobin today is down again at 5.8 , will transfuse 1 more unit of red blood cells , and recheck CBC , will follow in a.m. , physical therapy consult was placed On 10/20/2021 patient alert and oriented 3. Patient is currently resting in bed. Patient may require hemodialysis if kidneys continued to decline. Nephrology services are following. Patient maintained on bicarb drip. Labs currently pending. Repeat hemoglobin yesterday after blood transfusion 7.1. Patient denies chest pain or shortness of breath. Patient denies nausea vomiting or diarrhea. Patient denies any urinary burning or frequency. Vascular surgery has been consulted for possible hemodialysis catheter placement On 10/21/2021 patient was seen and examined on the medical floor she is alert and oriented in no apparent distress she is complaining of generalized weakness, otherwise she denies any specific complaints, vital exam reveals a temperature of 98.5 pulse 83 respirations 17 blood pressure 145/70 pulse ox 97% on 2 L nasal cannula, white blood count 9.9 hemoglobin 7.3 platelet count 148 sodium 138 potassium 4.5 chloride 99 CO2 25.4 BUN 90.9 creatinine 2.6, patient was started on physical therapy and occupational therapy will continue to monitor closely On 10/22/2021 patient is alert and oriented 3. Patient shivering or shortness of breath. Patient denies nausea vomiting or diarrhea. Patient denies any urinary burning or frequency. Kidney enzymes continue to show improvement. Dr. Coleman will be consulted possible inpatient rehab for discharge On 10/23/2021 patient is alert and oriented 3 creatinine improving to 1.74 and bun 80. Blood pressure is elevated. We'll resume patient's home medication of Lopressor. IPR vs ecf for d/c social work services following. Denies chest pain or shortness breath denies vomiting or diarrhea. Denies urinary burning or frequency On 10/24/2021 patient was seen and examined on the medical floor she is alert and oriented 3 in no apparent distress she is complaining of shortness of yudy ath and wheezing otherwise she denies any complaints there is no fever or chills no headache or dizziness no chest pain she has occasional cough no nausea or vomiting no abdominal pain no diarrhea no blood in the stools no burning with urination no frequency or urgency and no hematuria On 10/25/2021 patient is alert and oriented 3. Did discuss case with nephrology services recommend patient be discharged on Lasix. Patient also will be discharged on Ceftin, prednisone taper and Protonix. Per surgical services continue to hold anticoagulation. Plavix on hold. Patient follow-up with urology services for outpatient cystoscopy. Patient denies chest pain or shortness of breath. Patient denies nausea vomiting or diarrhea. Patient denies any urinary burning or frequency Patient Condition at Discharge: Stable Plan - Discharge Summary Discharge Rx Participant: No New Discharge Prescriptions: New predniSONE [Deltasone] 40 mg PO DAILY tab Furosemide [Lasix] 40 mg PO DAILY 30 Days #30 tablet amLODIPine [Norvasc] 10 mg PO DAILY tab Cefuroxime Axetil [Ceftin] 500 mg PO BID 7 Days #14 tab Docusate [Colace] 100 mg PO BID cap INSULIN ASPART (NovoLOG) [NovoLOG (formulary)] 0 unit SQ ACHS ml Pantoprazole Sodium [Protonix] 40 mg PO DAILY 30 Days #30 tab Continue Metoprolol Succinate (ER) [Toprol XL] 25 mg PO DAILY Montelukast [Singulair] 10 mg PO HS #30 tab Tolterodine ER [Detrol LA] 4 mg PO DAILY Albuterol Inhaler [Ventolin Hfa Inhaler] 1 - 2 puff INHALATION RT-QID PRN PRN Reason: Shortness Of Breath Ferrous Sulfate [Iron (65 MG Elemental)] 325 mg PO DAILY guaiFENesin [Diabetic Tussin] 200 mg PO Q6H PRN PRN Reason: COUGH/CONGESTION Levothyroxine Sodium [Synthroid] 25 mcg PO DAILY Cholecalciferol [Vitamin D3 (25 Mcg = 1000 Iu)] 50 mcg PO DAILY Ezetimibe [Zetia] 10 mg PO DAILY glipiZIDE [Glucotrol] 5 mg PO TID Acetaminophen Tab [Tylenol] 1,000 mg PO Q6HR PRN PRN Reason: Pain Or Fever > 100.5 prednisoLONE ACETATE 1% OPHTH [Pred Forte 1%] 1 drops BOTH EYES QID Discontinued lisinopriL 40 mg PO DAILY Clopidogrel [Plavix] 75 mg PO DAILY predniSONE 5 mg PO DAILY Discharge Medication List Metoprolol Succinate (ER) [Toprol XL] 25 mg PO DAILY 05/14/19 [History] Montelukast [Singulair] 10 mg PO HS #30 tab 05/24/19 [Rx] Albuterol Inhaler [Ventolin Hfa Inhaler] 1 - 2 puff INHALATION RT-QID PRN 06/14/20 [History] Tolterodine ER [Detrol LA] 4 mg PO DAILY 06/14/20 [History] Ferrous Sulfate [Iron (65 MG Elemental)] 325 mg PO DAILY 02/16/21 [History] Acetaminophen Tab [Tylenol] 1,000 mg PO Q6HR PRN 10/13/21 [History] Cholecalciferol [Vitamin D3 (25 Mcg = 1000 Iu)] 50 mcg PO DAILY 10/13/21 [History] Ezetimibe [Zetia] 10 mg PO DAILY 10/13/21 [History] Levothyroxine Sodium [Synthroid] 25 mcg PO DAILY 10/13/21 [History] glipiZIDE [Glucotrol] 5 mg PO TID 10/13/21 [History] guaiFENesin [Diabetic Tussin] 200 mg PO Q6H PRN 10/13/21 [History] prednisoLONE ACETATE 1% OPHTH [Pred Forte 1%] 1 drops BOTH EYES QID 10/13/21 [History] Cefuroxime Axetil [Ceftin] 500 mg PO BID 7 Days #14 tab 10/25/21 [Rx] Docusate [Colace] 100 mg PO BID cap 10/25/21 [Rx] Furosemide [Lasix] 40 mg PO DAILY 30 Days #30 tablet 10/25/21 [Rx] INSULIN ASPART (NovoLOG) [NovoLOG (formulary)] 0 unit SQ ACHS ml 10/25/21 [Rx] Pantoprazole Sodium [Protonix] 40 mg PO DAILY 30 Days #30 tab 10/25/21 [Rx] amLODIPine [Norvasc] 10 mg PO DAILY tab 10/25/21 [Rx] predniSONE [Deltasone] 40 mg PO DAILY tab 10/25/21 [Rx] Follow up Appointment(s)/Referral(s): Nick Palma MD [STAFF PHYSICIAN] - 6 Weeks Nenita Shelby MD [Primary Care Provider] - 1-2 days Activity/Diet/Wound Care/Special Instructions: At time of discharge, schedule follow-up appointment with Dr. Palma in 6 weeks for office cystoscopy. Patient to be admitted at [facility] under Dr. Shelby. Please do CBC and CMP within 3 days of arrival Discharge Disposition: TRANSFER TO SNF/ECF
[2021-10-25 11:31] LABS: African American GFR (CKD) 52.6 (60.0-200.0); Albumin 2.8 g/dL (3.8-4.9); Albumin/Globulin Ratio 1.13 (1.60-3.17); Anion Gap 12.9 mmol/L (10.00-18.00); BUN/Creat Ratio 48.79 Ratio (12.00-20.00); Blood Urea Nitrogen 56.6 mg/dL (9.0-27.0); Calcium 7.8 mg/dL (8.7-10.3); Carbon Dioxide 27.4 mmol/L (20.0-27.5); Globulin 2.5 g/dL (1.6-3.3); Non-African American GFR(CKD) 45.4 (60.0-200.0); Potassium 4.4 mmol/L (3.5-5.5); Total Bilirubin 0.5 mg/dL (0.30-1.20); Total Protein 5.3 g/dL (6.2-8.2)
[2021-10-25 11:53] LABS: Glucose,Whole Blood 147 mg/dL (75-99)
[2021-10-25 16:11] VITALS: PULSE 79
--- NOTE | 2021-10-25 17:13 | PN ---
PROGRESS NOTE Patient is seen for followup for acute kidney injury and volume overload. The patient's renal function continues to improve. She was started on IV Lasix at a scheduled dose yesterday secondary to volume overload. Overall, she states she is feeling better today. PHYSICAL EXAMINATION: Blood pressure was 155/76, heart rate 76 per minute. Patient is afebrile. Examination of the heart S1, S2. Examination of the lungs, bilateral breath sounds are heard. Abdomen is soft, nontender, morbidly obese. Examination of lower extremities, 1+ edema bilaterally. AUTISM SPECIALIST exam grossly intact. LAB: Show hemoglobin 8.7, sodium 135, potassium 4.4, BUN 56.6, creatinine 1.2. ASSESSMENT: 1. Acute kidney injury, renal function continues to improve. 2. Hypervolemia, maintained on IV Lasix. If patient is discharged she will need to continue with p.o. Lasix with monitoring of renal function as outpatient. 3. Coagulase-negative Staphylococcus bacteremia with repeat blood cultures currently negative. 4. Metabolic acidosis associated with acute kidney injury, now resolved. PLAN: Continue with IV Lasix. If patient is discharged, she will need to take 40 mg b.i.d. with monitoring of her renal function as outpatient. MMODL / IJN: [id number] /
== END 2021-10-25 16:15 | DRG 280 ==
LOC: EC 09:33 → 3SCARD 12:47 → 2SICU 10-17 01:05 → 4SSUR 10-18 15:25
PROVIDERS: ADMIT Internal Medicine; ATTEND Internal Medicine
PROC: 30233N1 Transfusion of Nonautologous Red Blood Cells into Peripheral Vein, Percutaneous Approach (ICD-10-PCS; principal; 2021-10-17)
PROC: 02HV33Z Insertion of Infusion Device into Superior Vena Cava, Percutaneous Approach (ICD-10-PCS; 2021-10-18)
DX: I21.4 Non-ST elevation (NSTEMI) myocardial infarction (principal); I50.33 Acute on chronic diastolic (congestive) heart failure; J18.9 Pneumonia, unspecified organism; N17.0 Acute kidney failure with tubular necrosis; I13.0 Hypertensive heart and chronic kidney disease with heart failure and stage 1 through stage 4 chronic kidney disease, or unspecified chronic kidney disease; I16.1 Hypertensive emergency; J44.0 Chronic obstructive pulmonary disease with (acute) lower respiratory infection; J45.901 Unspecified asthma with (acute) exacerbation; J98.11 Atelectasis; E87.2 Acidosis; D62 Acute posthemorrhagic anemia; N39.0 Urinary tract infection, site not specified; Z68.41 Body mass index [BMI] 40.0-44.9, adult; I48.91 Unspecified atrial fibrillation; I27.20 Pulmonary hypertension, unspecified; M06.9 Rheumatoid arthritis, unspecified; N18.30 Chronic kidney disease, stage 3 unspecified; I08.1 Rheumatic disorders of both mitral and tricuspid valves; Z20.822 Contact with and (suspected) exposure to COVID-19; D63.8 Anemia in other chronic diseases classified elsewhere; D63.1 Anemia in chronic kidney disease; E11.22 Type 2 diabetes mellitus with diabetic chronic kidney disease; E11.65 Type 2 diabetes mellitus with hyperglycemia; I95.9 Hypotension, unspecified; E66.01 Morbid (severe) obesity due to excess calories; E78.5 Hyperlipidemia, unspecified; E83.42 Hypomagnesemia; M79.81 Nontraumatic hematoma of soft tissue; B96.89 Other specified bacterial agents as the cause of diseases classified elsewhere; N39.41 Urge incontinence; R31.0 Gross hematuria; Z87.440 Personal history of urinary (tract) infections; Z98.890 Other specified postprocedural states; Z79.02 Long term (current) use of antithrombotics/antiplatelets; Z79.52 Long term (current) use of systemic steroids; Z79.84 Long term (current) use of oral hypoglycemic drugs; Z79.890 Hormone replacement therapy; Z79.899 Other long term (current) drug therapy; Z80.0 Family history of malignant neoplasm of digestive organs; Z82.49 Family history of ischemic heart disease and other diseases of the circulatory system; Z86.73 Personal history of transient ischemic attack (TIA), and cerebral infarction without residual deficits; Z91.81 History of falling; Z98.51 Tubal ligation status; Z90.49 Acquired absence of other specified parts of digestive tract; Z98.49 Cataract extraction status, unspecified eye
CPT/HCPCS: 36415; 36573; 71045; 74176; 80048; 80053; 80202; 81001; 82272; 82607; 82746; 83540; 83550; 83605; 83735; 83880; 84145; 84484; 85025; 85610; 85730; 86704; 86706; 86850; 86900; 86901; 86920; 87040; 87070; 87086; 87205; 87340; 87635; 93005; 93306; 94640; 94760; 96374; 96375; 99285

== ENCOUNTER 2021-11-09 13:03 | Inpatient (IN) | payer MEDICARE ==
[2021-11-09] MEDS ORDERED: ACETAMINOPHEN TAB 500 MG TAB PO STA (13:23)
--- NOTE | 2021-11-09 13:28 | ED ---
General Adult HPI - General Chief complaint: Fever Stated complaint: Fever Time Seen by Provider: 11/09/21 13:06 Source: patient, EMS, RN notes reviewed Mode of arrival: EMS Limitations: no limitations - History of Present Illness Initial comments: Patient is a pleasant 75-year-old female presenting to the emergency Department with complaints of either. Onset of symptoms was yesterday. A arevalo did have urinalysis yesterday showing 16 white cells. Patient admits to having cough and chest congestion. Occasional white sputum. Patient feels chilled and achy. - Related Data Home Medications Medication Instructions Recorded Confirmed Metoprolol Succinate (ER) [Toprol 25 mg PO DAILY 05/14/19 10/13/21 XL] Albuterol Inhaler [Ventolin Hfa 1 - 2 puff INHALATION RT-QID PRN 06/14/20 10/13/21 Inhaler] Tolterodine ER [Detrol LA] 4 mg PO DAILY 06/14/20 10/13/21 Ferrous Sulfate [Iron (65 MG 325 mg PO DAILY 02/16/21 10/13/21 Elemental)] Acetaminophen Tab [Tylenol] 1,000 mg PO Q6HR PRN 10/13/21 10/13/21 Cholecalciferol [Vitamin D3 (25 50 mcg PO DAILY 10/13/21 10/13/21 Mcg = 1000 Iu)] Ezetimibe [Zetia] 10 mg PO DAILY 10/13/21 10/13/21 Levothyroxine Sodium [Synthroid] 25 mcg PO DAILY 10/13/21 10/13/21 glipiZIDE [Glucotrol] 5 mg PO TID 10/13/21 10/13/21 guaiFENesin [Diabetic Tussin] 200 mg PO Q6H PRN 10/13/21 10/13/21 prednisoLONE ACETATE 1% OPHTH 1 drops BOTH EYES QID 10/13/21 10/13/21 [Pred Forte 1%] Previous Rx's Medication Instructions Recorded Montelukast [Singulair] 10 mg PO HS #30 tab 05/24/19 Cefuroxime Axetil [Ceftin] 500 mg PO BID 7 Days #14 tab 10/25/21 Docusate [Colace] 100 mg PO BID cap 10/25/21 Furosemide [Lasix] 40 mg PO DAILY 30 Days #30 tablet 10/25/21 INSULIN ASPART (NovoLOG) [NovoLOG 0 unit SQ ACHS ml 10/25/21 (formulary)] Pantoprazole Sodium [Protonix] 40 mg PO DAILY 30 Days #30 tab 10/25/21 amLODIPine [Norvasc] 10 mg PO DAILY tab 10/25/21 predniSONE [Deltasone] 40 mg PO DAILY tab 10/25/21 Allergies Allergy/AdvReac Type Severity Reaction Status Date / Time atorvastatin [From Lipitor] AdvReac CRAMPS Verified 10/13/21 10:53 latex AdvReac Itching Verified 10/13/21 10:53 Review of Systems ROS Statement: Those systems with pertinent positive or pertinent negative responses have been documented in the HPI. ROS Other: All systems not noted in ROS Statement are negative. Constitutional: Reports: fever, chills Eyes: Denies: eye pain ENT: Reports: congestion. Denies: ear pain Respiratory: Reports: cough Cardiovascular: Denies: chest pain Endocrine: Reports: fatigue Gastrointestinal: Denies: abdominal pain, vomiting Genitourinary: Denies: dysuria Musculoskeletal: Denies: back pain Skin: Denies: rash Neurological: Denies: weakness Past Medical History Past Medical History: Asthma, CVA/TIA, Diabetes Mellitus, Hyperlipidemia, Hypertension, Rheumatoid Arthritis (RA) Additional Past Medical History / Comment(s): TIA in 2016 History of Any Multi-Drug Resistant Organisms: None Reported Past Surgical History: Appendectomy, Tubal Ligation Additional Past Surgical History / Comment(s): Colonoscopy, cataracts surg Past Anesthesia/Blood Transfusion Reactions: No Reported Reaction Past Psychological History: No Psychological Hx Reported Smoking Status: Never smoker Past Alcohol Use History: None Reported Past Drug Use History: None Reported - Past Family History Father Family Medical History: Cancer, Congestive Heart Failure (CHF) Additional Family Medical History / Comment(s): colon cancer Mother Family Medical History: Rheumatoid Arthritis (RA) General Exam Limitations: no limitations General appearance: alert, in no apparent distress Head exam: Present: normocephalic Eye exam: Present: normal appearance Neck exam: Present: normal inspection Respiratory exam: Present: normal lung sounds bilaterally Cardiovascular Exam: Present: tachycardia GI/Abdominal exam: Present: soft. Absent: distended, tenderness Extremities exam: Present: pedal edema (+1 bilaterally). Absent: calf tenderness Neurological exam: Present: alert Psychiatric exam: Present: normal affect, normal mood Skin exam: Present: normal color Course Vital Signs 11/09/21 11/09/21 13:04 13:11 Temperature 103.4 F H Pulse Rate 119 H Respiratory 18 18 Rate Blood Pressure 132/53 O2 Sat by Pulse 93 L Oximetry - Reevaluation(s) Reevaluation #1: 11/09/21 15:15 There is concern for sepsis diagnosed at 1515. Blood culture and lactic acid and IV antibiotics will be ordered. Medical Decision Making - Medical Decision Making Patient reevaluated and updated. Case discussed with Dr. Muhammad who did evaluate patient and will admit covering for Dr. Shelby. - Lab Data Result diagrams: 11/09/21 13:57 11/09/21 13:57 Lab Results 11/09/21 11/09/21 11/09/21 Range/Units 13:26 13:46 13:57 WBC 5.0 (3.8-10.6) k/uL RBC 2.86 L (3.80-5.40) m/uL Hgb 8.4 L (11.4-16.0) gm/dL Hct 26.4 L (34.0-46.0) % MCV 92.2 (80.0-100.0) fL MCH 29.5 (25.0-35.0) pg MCHC 32.0 (31.0-37.0) g/dL RDW 15.3 (11.5-15.5) % Plt Count 213 (150-450) k/uL MPV 8.5 Neutrophils % 77 % Lymphocytes % 16 % Monocytes % 4 % Eosinophils % 0 % Basophils % 1 % Neutrophils # 3.9 (1.3-7.7) k/uL Lymphocytes # 0.8 L (1.0-4.8) k/uL Monocytes # 0.2 (0-1.0) k/uL Eosinophils # 0.0 (0-0.7) k/uL Basophils # 0.0 (0-0.2) k/uL Hypochromasia Slight PT (9.0-12.0) sec INR (<1.2) APTT (22.0-30.0) sec Sodium (137-145) mmol/L Potassium (3.5-5.1) mmol/L Chloride (98-107) mmol/L Carbon Dioxide (22-30) mmol/L Anion Gap mmol/L BUN (7-17) mg/dL Creatinine (0.52-1.04) mg/dL Est GFR (CKD-EPI)AfAm (>60 ml/min/1.73 sqM) Est GFR (CKD-EPI)NonAf (>60 ml/min/1.73 sqM) Glucose (74-99) mg/dL Plasma Lactic Acid Bryan (0.7-2.0) mmol/L Calcium (8.4-10.2) mg/dL Total Bilirubin (0.2-1.3) mg/dL AST (14-36) U/L ALT (4-34) U/L Alkaline Phosphatase (38-126) U/L Total Protein (6.3-8.2) g/dL Albumin (3.5-5.0) g/dL Urine Color Urine Appearance (Clear) Urine pH (5.0-8.0) Ur Specific [place] (1.001-1.035) Urine Protein (Negative) Urine Glucose (UA) (Negative) Urine Ketones (Negative) Urine Blood (Negative) Urine Nitrite (Negative) Urine Bilirubin (Negative) Urine Urobilinogen (<2.0) mg/dL Ur Leukocyte Esterase (Negative) Urine RBC (0-5) /hpf Urine WBC (0-5) /hpf Urine WBC Clumps (None) /hpf Urine Bacteria (None) /hpf Urine Yeast (Budding) (None) /hpf Coronavirus (PCR) Not Detected (Not Detectd) Influenza Type A RNA Not Detected (Not Detectd) Influenza Type B (PCR) Not Detected (Not Detectd) 11/09/21 11/09/21 11/09/21 Range/Units 13:57 13:57 13:57 WBC (3.8-10.6) k/uL RBC (3.80-5.40) m/uL Hgb (11.4-16.0) gm/dL Hct (34.0-46.0) % MCV (80.0-100.0) fL MCH (25.0-35.0) pg MCHC (31.0-37.0) g/dL RDW (11.5-15.5) % Plt Count (150-450) k/uL MPV Neutrophils % % Lymphocytes % % Monocytes % % Eosinophils % % Basophils % % Neutrophils # (1.3-7.7) k/uL Lymphocytes # (1.0-4.8) k/uL Monocytes # (0-1.0) k/uL Eosinophils # (0-0.7) k/uL Basophils # (0-0.2) k/uL Hypochromasia PT 10.2 (9.0-12.0) sec INR 0.9 (<1.2) APTT 16.5 L (22.0-30.0) sec Sodium 132 L (137-145) mmol/L Potassium 4.5 (3.5-5.1) mmol/L Chloride 96 L (98-107) mmol/L Carbon Dioxide 28 (22-30) mmol/L Anion Gap 8 mmol/L BUN 43 H (7-17) mg/dL Creatinine 1.19 H (0.52-1.04) mg/dL Est GFR (CKD-EPI)AfAm 51 (>60 ml/min/1.73 sqM) Est GFR (CKD-EPI)NonAf 44 (>60 ml/min/1.73 sqM) Glucose 101 H (74-99) mg/dL Plasma Lactic Acid Bryan 1.2 (0.7-2.0) mmol/L Calcium 7.6 L (8.4-10.2) mg/dL Total Bilirubin 0.8 (0.2-1.3) mg/dL AST 29 (14-36) U/L ALT 16 (4-34) U/L Alkaline Phosphatase 82 (38-126) U/L Total Protein 5.7 L (6.3-8.2) g/dL Albumin 2.5 L (3.5-5.0) g/dL Urine Color Urine Appearance (Clear) Urine pH (5.0-8.0) Ur Specific [place] (1.001-1.035) Urine Protein (Negative) Urine Glucose (UA) (Negative) Urine Ketones (Negative) Urine Blood (Negative) Urine Nitrite (Negative) Urine Bilirubin (Negative) Urine Urobilinogen (<2.0) mg/dL Ur Leukocyte Esterase (Negative) Urine RBC (0-5) /hpf Urine WBC (0-5) /hpf Urine WBC Clumps (None) /hpf Urine Bacteria (None) /hpf Urine Yeast (Budding) (None) /hpf Coronavirus (PCR) (Not Detectd) Influenza Type A RNA (Not Detectd) Influenza Type B (PCR) (Not Detectd) 11/09/21 Range/Units 14:20 WBC (3.8-10.6) k/uL RBC (3.80-5.40) m/uL Hgb (11.4-16.0) gm/dL Hct (34.0-46.0) % MCV (80.0-100.0) fL MCH (25.0-35.0) pg MCHC (31.0-37.0) g/dL RDW (11.5-15.5) % Plt Count (150-450) k/uL MPV Neutrophils % % Lymphocytes % % Monocytes % % Eosinophils % % Basophils % % Neutrophils # (1.3-7.7) k/uL Lymphocytes # (1.0-4.8) k/uL Monocytes # (0-1.0) k/uL Eosinophils # (0-0.7) k/uL Basophils # (0-0.2) k/uL Hypochromasia PT (9.0-12.0) sec INR (<1.2) APTT (22.0-30.0) sec Sodium (137-145) mmol/L Potassium (3.5-5.1) mmol/L Chloride (98-107) mmol/L Carbon Dioxide (22-30) mmol/L Anion Gap mmol/L BUN (7-17) mg/dL Creatinine (0.52-1.04) mg/dL Est GFR (CKD-EPI)AfAm (>60 ml/min/1.73 sqM) Est GFR (CKD-EPI)NonAf (>60 ml/min/1.73 sqM) Glucose (74-99) mg/dL Plasma Lactic Acid Bryan (0.7-2.0) mmol/L Calcium (8.4-10.2) mg/dL Total Bilirubin (0.2-1.3) mg/dL AST (14-36) U/L ALT (4-34) U/L Alkaline Phosphatase (38-126) U/L Total Protein (6.3-8.2) g/dL Albumin (3.5-5.0) g/dL Urine Color Yellow Urine Appearance Turbid H (Clear) Urine pH 6.0 (5.0-8.0) Ur Specific [place] 1.018 (1.001-1.035) Urine Protein 1+ H (Negative) Urine Glucose (UA) Negative (Negative) Urine Ketones Negative (Negative) Urine Blood Large H (Negative) Urine Nitrite Negative (Negative) Urine Bilirubin Negative (Negative) Urine Urobilinogen <2.0 (<2.0) mg/dL Ur Leukocyte Esterase Large H (Negative) Urine RBC 121 H (0-5) /hpf Urine WBC >182 H (0-5) /hpf Urine WBC Clumps Many H (None) /hpf Urine Bacteria Many H (None) /hpf Urine Yeast (Budding) Many H (None) /hpf Coronavirus (PCR) (Not Detectd) Influenza Type A RNA (Not Detectd) Influenza Type B (PCR) (Not Detectd) - Radiology Data Radiology results: image reviewed (Some pleural reaction improved from previou s.) Critical Care Time Critical Care Time: Yes Total Critical Care Time: 34 Disposition Clinical Impression: Urinary tract infection, Sepsis Disposition: ADMITTED IP TO THIS [facility] Condition: Serious Is patient prescribed a controlled substance at d/c from ED?: No Referrals: Nenita Shelby MD [Primary Care Provider] - 1-2 days Decision Time: 15:15
[2021-11-09 14:10] LABS: Basophils % (A) 1 %; Eosinophils % (A) 0 %; HCT 26.4 % (34.0-46.0); HGB 8.4 gm/dL (11.4-16.0); Hypochromasia Slight; Lymphocytes # (A) 0.8 k/uL (1.0-4.8); Lymphocytes % (A) 16 %; MCH 29.5 pg (25.0-35.0); MCV 92.2 fL (80.0-100.0); Mean Platelet Volume 8.5; Monocytes # (A) 0.2 k/uL (0-1.0); Monocytes % (A) 4 %; Neutrophils # (A) 3.9 k/uL (1.3-7.7); Neutrophils % (A) 77 %; Platelet Count 213 k/uL (150-450); RBC 2.86 m/uL (3.80-5.40); RDW 15.3 % (11.5-15.5)
[2021-11-09] MEDS: SODIUM CHLORIDE 0.9% 1,000 ML IV SCH ×2 (14:21→19:39)
[2021-11-09] MEDS ORDERED: cefTRIAXone IN SWFI 1,000 MG/10 ML SYRINGE IVP STA (14:22)
[2021-11-09 14:25] LABS: Albumin 2.5 g/dL (3.5-5.0); Calcium 7.6 mg/dL (8.4-10.2); INR 0.9 (<1.2); Potassium 4.5 mmol/L (3.5-5.1); Prothrombin Time 10.2 sec (9.0-12.0); Total Bilirubin 0.8 mg/dL (0.2-1.3); Total Protein 5.7 g/dL (6.3-8.2)
[2021-11-09 14:56] LABS: Partial Thromboplastin Time 16.5 sec (22.0-30.0)
--- NOTE | 2021-11-09 14:57 | XR ---
EXAMINATION TYPE: XR chest 2V DATE OF EXAM: 11/09/2021 COMPARISON: 10/24/2021 HISTORY: Fever TECHNIQUE: FINDINGS: Heart is probably enlarged. There is some blunting of the costophrenic angles. There is no definite heart failure. IMPRESSION: There is some pleural reaction and atelectasis at the lung bases which is improved on the left side and not changed on the right side compared to last exam. No obvious heart failure.
[2021-11-09 15:05] LABS: Appearance,Urine Turbid (Clear); Bacteria,Urine Many /hpf; Bilirubin,Urine Negative (Negative); Blood,Urine Large (Negative); Budding Yeast,Urine Many /hpf; Color,Urine Yellow; Glucose,Urine (UA) Negative (Negative); Ketones,Urine Negative (Negative); Leukocyte Esterase,Urine Large (Negative); Nitrite,Urine Negative (Negative); Protein,Urine 1+ (Negative); RBC,Urine 121 /hpf (0-5); Specific Gravity,Urine 1.018 (1.001-1.035); Urobilinogen,Urine <2.0 mg/dL (<2.0); WBC,Urine >182 /hpf (0-5)
[2021-11-09] MEDS ORDERED: NALOXONE 0.4 MG/ML 1 ML VIAL IV PRN (15:15)
[2021-11-09 17:06] LABS: Glucose,Whole Blood 99 mg/dL (75-99)
--- NOTE | 2021-11-09 18:46 | HP ---
HISTORY AND PHYSICAL I am covering for Dr. Shelby. DATE OF SERVICE: 11/09/2021 CHIEF COMPLAINT: Fever and possible UTI. HISTORY OF PRESENT ILLNESS: This 75-year-old woman with a past medical history of multiple medical problems, including asthma, CVA, TIA, diabetes, hypertension, hyperlipidemia, history of rheumatoid arthritis, being followed by Dr. Shelby in the outpatient setting, was complaining of fever. Patient also complains of cough. The patient also had an abnormal urine exam done yesterday. White count is 5, hemoglobin is 8.4, and sodium is 132. Patient had features of UTI. Patient admitted for further evaluation and treatment. COVID-19 is negative at this time. A chest x-ray was done in the ER which I personally evaluated. It showed some bilateral increased opacity. There is no history of fever, rigors or chills at this time. PAST MEDICAL HISTORY: History of asthma, diabetes mellitus, hypertension, hyperlipidemia. HOME MEDICATIONS: Prednisone prednisone, guaifenesin, glipizide, Norvasc, Detrol. Doses and other medications are reviewed. ALLERGIES: LIPITOR, LATEX. FAMILY HISTORY: History of CHF and colon cancer in the family. SOCIAL HISTORY: No history of smoking. No history of alcohol intake. REVIEW OF SYSTEMS: ENT: Diminished hearing. Diminished vision. CARDIOVASCULAR SYSTEM: No angina, palpitations. RESPIRATORY SYSTEM: As mentioned earlier. GI: As mentioned earlier. : No dysuria. NERVOUS SYSTEM: No numbness, weakness. ALLERGY/IMMUNOLOGY: No asthma or hay fever. MUSCULOSKELETAL: As mentioned earlier. HEMATOLOGY/ONCOLOGY: No history of anemia. ENDOCRINE: No history of diabetes or hypothyroidism. CONSTITUTIONAL: As mentioned earlier. DERMATOLOGY: Negative. RHEUMATOLOGY: Negative. PSYCHIATRY: As mentioned earlier. PHYSICAL EXAMINATION: Patient alert and oriented x3. Pulse is 119, blood pressure respiration 18, temperature 103.4, pulse ox 93% on room air. HEENT: Conjunctivae normal. NECK: No jugular venous distention. CARDIOVASCULAR: S1, S2 muffled. RESPIRATION: Breath sounds diminished at the bases. A few scattered rhonchi and crackles. ABDOMEN: Soft, nontender. LEGS: No edema. No swelling. NERVOUS SYSTEM: No focal deficit. LABS: WBC 5, hemoglobin 8.4, sodium 132, potassium 9.5. Other labs are noted. ASSESSMENT: 1. Possible acute urinary tract infection with sepsis. 2. Continued fever. 3. Increased creatinine with acute renal failure. 4. Hyponatremia. 5. Anemia, normocytic. 6. COVID-19 is negative. 7. History of asthma. 8. History of cerebrovascular accident, transient ischemic attack. 9. Diabetes mellitus, type 2. 10.Hypertension. 11.Hyperlipidemia. 12.History of rheumatoid arthritis. 13.History of transient ischemic attack. 14.History of colonoscopy. RECOMMENDATIONS AND DISCUSSION: In this 75-year-old woman who presented with multiple complex medical issues, we will monitor the patient closely. Empiric antibiotics. Otherwise, COVID-19 has been negative. I would also recommend a D-dimer, and if the D-dimer is positive I would recommend a CT angio of the chest. Otherwise, closely monitor. Overall prognosis is guarded because of multiple complex medical issues. Further recommendations to follow. A copy of this dictation is being forwarded to Dr. Shelby, who is the primary physician. MMODL / IJN: [id number] / SARKIS
[2021-11-09 21:28] LABS: Glucose,Whole Blood 96 mg/dL (75-99)
[2021-11-09] MEDS: INSULIN ASPART (NovoLOG) 100 UNIT/ML VIAL SQ SCH (21:36)
[2021-11-10 00:57] LABS: Glucose,Whole Blood 80 mg/dL (75-99)
[2021-11-10 07:31] LABS: Glucose,Whole Blood 121 mg/dL (75-99)
[2021-11-10 08:05] LABS: Basophils % (A) 0 %; Eosinophils % (A) 1 %; HCT 23.8 % (34.0-46.0); HGB 7.4 gm/dL (11.4-16.0); Hypochromasia Marked; Lymphocytes # (A) 0.7 k/uL (1.0-4.8); Lymphocytes % (A) 22 %; MCH 29.8 pg (25.0-35.0); MCHC 31.2 g/dL (31.0-37.0); MCV 95.6 fL (80.0-100.0); Monocytes # (A) 0.1 k/uL (0-1.0); Monocytes % (A) 4 %; Neutrophils # (A) 2.1 k/uL (1.3-7.7); Neutrophils % (A) 69 %; Platelet Count 209 k/uL (150-450); RBC 2.49 m/uL (3.80-5.40); RDW 15.7 % (11.5-15.5); WBC 3.1 k/uL (3.8-10.6)
[2021-11-10] MEDS: INSULIN ASPART (NovoLOG) 100 UNIT/ML VIAL SQ SCH ×4 (08:08→20:55)
[2021-11-10] MEDS: PANTOPRAZOLE 40 MG/10 ML VIAL IV SCH (08:08)
[2021-11-10] MEDS ORDERED: ALBUTEROL NEBULIZED 2.5 MG/3 ML INHALATION PRN (11:07)
[2021-11-10 11:33] LABS: African American GFR (CKD) 56.1 (60.0-200.0); Albumin 2.3 g/dL (3.8-4.9); Albumin/Globulin Ratio 0.85 (1.60-3.17); Anion Gap 13.1 mmol/L (10.00-18.00); BUN/Creat Ratio 28.18 Ratio (12.00-20.00); Calcium 7.4 mg/dL (8.7-10.3); Carbon Dioxide 22.9 mmol/L (20.0-27.5); Globulin 2.7 g/dL (1.6-3.3); Non-African American GFR(CKD) 48.4 (60.0-200.0); Potassium 3.9 mmol/L (3.5-5.5); Total Bilirubin 0.6 mg/dL (0.30-1.20)
[2021-11-10] MEDS: guaiFENesin SYRUP 100MG/5ML 200 MG/10 ML CUP PO PRN (12:08)
[2021-11-10] MEDS: ACETAMINOPHEN TAB 325 MG TAB PO PRN (12:08)
[2021-11-10] MEDS: METOPROLOL SUCCINATE (ER) 25 MG TAB.ER.24H PO SCH (12:09)
[2021-11-10] MEDS: SODIUM CHLORIDE 0.9% 1,000 ML IV SCH ×2 (12:09→20:56)
[2021-11-10] MEDS: glipiZIDE 5 MG TAB PO SCH ×2 (12:09→20:55)
[2021-11-10 12:36] LABS: Glucose,Whole Blood 118 mg/dL (75-99)
[2021-11-10] MEDS ORDERED: prednisoLONE ACETATE 1% OPHTH DROPS 5 ML BTL BOTH EYES SCH (13:00)
[2021-11-10] MEDS ORDERED: OXYMETAZOLINE 0.05% NASL SPRAY 1 SPRAY BOTTLE EA NOSTRIL PRN (15:32)
--- NOTE | 2021-11-10 17:02 | PN ---
PROGRESS NOTE DATE OF SERVICE: 11/10/2021 This 75-year-old woman who was admitted with acute urinary tract infection and sepsis is being closely monitored. The patient also had possibly cocci in clusters grown from the culture. No chest pain. No palpitations. No fever. PAST MEDICAL HISTORY: Reviewed. REVIEW OF SYSTEMS: Cardiovascular system: No angina. Respiratory system: As mentioned earlier. GI: As mentioned earlier. : No dysuria. Nervous system: No numbness or weakness. CURRENT MEDICATIONS: Reviewed include Tylenol, Rocephin, Norvasc, cholecalciferol. Doses are reviewed. PHYSICAL EXAMINATION: Alert and oriented x3. Pulse 100, blood pressure 130/60, respiration 18, temperature 97.4, pulse ox 92% on room air. HEENT: Conjunctivae normal. Oral mucosa moist. NECK: No jugular venous distention. No lymph node enlargement. CARDIOVASCULAR: S1, S2, muffled. No S3, no S4, RESPIRATORY: Diminished breath sounds at the bases. A few scattered rhonchi and crackles. ABDOMEN: Soft, nontender. LEGS: No edema, no swelling. NERVOUS SYSTEM: No focal deficits. LABS: WBC 3.2, hemoglobin 7.4. Otherwise, glucose noted. ASSESSMENT: 1. Acute urinary tract infection with sepsis. 2. Gram-positive cocci from the blood culture, possible sepsis. 3. Continued fever. 4. Creatinine with acute renal failure. 5. Hyponatremia. 6. Anemia, normocytic. 7. COVID-19 negative. 8. History of asthma. 9. History of CVA TIA. 10.Diabetes mellitus, type 2. 11.Hypertension. 12.Hyperlipidemia. 13.History of rheumatoid arthritis. 14.History of TIA. 15.History of colonoscopy. RECOMMENDATIONS: Recommend to continue current medications, continue to monitor, continue symptomatic treatment. Otherwise, I would recommend to continue the antibiotics. Infectious disease evaluation and repeat cultures. Repeat labs. The patient also has some leukopenia. We will continue to monitor. Dr. Shelby will follow tomorrow. Further recommendations to follow. MMODL / IJN: [id number] /
[2021-11-10 17:16] LABS: Glucose,Whole Blood 96 mg/dL (75-99)
[2021-11-10 20:11] LABS: Glucose,Whole Blood 142 mg/dL (75-99)
[2021-11-10] MEDS: DOCUSATE 100 MG CAP PO SCH (20:55)
[2021-11-10] MEDS: MONTELUKAST 10 MG TAB PO SCH (20:55)
[2021-11-10] MEDS: FERROUS SULFATE 325 MG TAB PO SCH (20:55)
[2021-11-11] MEDS: LEVOTHYROXINE 25 MCG TAB PO SCH (05:35)
[2021-11-11 07:18] LABS: Glucose,Whole Blood 74 mg/dL (75-99)
[2021-11-11] MEDS: INSULIN ASPART (NovoLOG) 100 UNIT/ML VIAL SQ SCH ×4 (07:23→20:02)
[2021-11-11] MEDS: CHOLECALCIFEROL 25 MCG (1000 IU) TABLET PO SCH (09:21)
[2021-11-11] MEDS: DOCUSATE 100 MG CAP PO SCH ×2 (09:21→20:29)
[2021-11-11] MEDS: METOPROLOL SUCCINATE (ER) 25 MG TAB.ER.24H PO SCH (09:21)
[2021-11-11] MEDS: amLODIPine 10 MG TAB PO SCH (09:21)
[2021-11-11] MEDS: PANTOPRAZOLE 40 MG/10 ML VIAL IV SCH (09:21)
[2021-11-11] MEDS: FUROSEMIDE 40 MG TAB PO SCH (09:21)
[2021-11-11] MEDS: EZETIMIBE 10 MG TAB PO SCH (09:22)
[2021-11-11] MEDS: glipiZIDE 5 MG TAB PO SCH ×3 (09:22→20:29)
[2021-11-11] MEDS: OXYBUTYNIN 10 MG TAB.ER.24 PO SCH (09:22)
[2021-11-11] MEDS: predniSONE 5 MG TAB PO SCH (09:22)
--- NOTE | 2021-11-11 11:27 | P.PN ---
Subjective Progress Note Date: 11/11/21 I am starting care for this patient on 11/11/2020, Dr Muhammad was covering for me This is an 75-year-old female patient who initially presented to the ER with concerns of fever from [facility] facility. Patient was positive for urinary tract infection. COVID-19 was negative. Patient had recent prolonged hospitalization for acute CHF Exacerbation and right lower lobe pneumonia. During that hospitalization patient was maintained on heparin drip for possible non-ST elevated WI and developed secondary abdominal wall hematoma. Patient to cooperate 2 units are PRBCs. Patient also had secondary acute kidney injury and urinary retention. Urine culture positive for group D enterococcus and blood culture positive for staphylococcus epidermis. Patient has been started on IV antibiotics. Infectious disease services were consulted. On 11/11/2022 2 patient's alert and oriented 3 resting comfortably in bed. Patient remains on IV antibiotics. Patient still having elevated temps. At this time patient denies chest pain or shortness of breath. Diarrhea. Patient denies any urinary burning or frequency Objective - Vital Signs Vital signs: Vital Signs Temp 99.2 F 11/11/21 10:24 Pulse 112 H 11/11/21 04:30 Resp 16 11/11/21 04:30 BP 146/71 11/11/21 04:30 Pulse Ox 93 L 11/11/21 04:30 Intake & Output 11/10/21 11/11/21 11/11/21 18:59 06:59 18:59 Intake Total 2615 Output Total 1080 600 Balance 1535 -600 Intake: Intake, IV Titration 875 Amount Sodium Chloride 0.9% 1, 825 000 ml @ 75 mls/hr IV . [id number] [facility] Rx#:[id number] cefTRIAXone 2 gm In 50 Sodium Chloride 0.9% 50 ml @ 100 mls/hr IVPB Q24HR [facility]TO Rx#:[id number] Oral 1740 Output: Urine 1080 600 Other: Voiding Method Indwelling Catheter Indwelling Catheter # Voids 1 - Exam Head normocephalic Neck supple Lungs clear to auscultation bilaterally no wheezing or crackles Heart regular rate and rhythm S1-S2, no rub or gallop Abdomen is soft nontender nondistended positive bowel sounds no hepatosplenomegaly Extremities no edema Neuro alert and orientated to 3 - Labs CBC & Chem 7: 11/10/21 06:55 11/10/21 06:55 Labs: Abnormal Lab Results - Last 24 Hours (Table) 11/10/21 11/10/21 11/10/21 Range/Units 06:55 12:36 20:09 BUN 31.0 H (9.0-27.0) mg/dL Est GFR (CKD-EPI)AfAm 56.1 L (60.0-200.0) Est GFR (CKD-EPI)NonAf 48.4 L (60.0-200.0) BUN/Creatinine Ratio 28.18 H (12.00-20.00) Ratio POC Glucose (mg/dL) 118 H 142 H (75-99) mg/dL Calcium 7.4 L (8.7-10.3) mg/dL Total Protein 5.0 L (6.2-8.2) g/dL Albumin 2.3 L (3.8-4.9) g/dL Albumin/Globulin Ratio 0.85 L (1.60-3.17) g/dL 11/11/21 Range/Units 07:17 BUN (9.0-27.0) mg/dL Est GFR (CKD-EPI)AfAm (60.0-200.0) Est GFR (CKD-EPI)NonAf (60.0-200.0) BUN/Creatinine Ratio (12.00-20.00) Ratio POC Glucose (mg/dL) 74 L (75-99) mg/dL Calcium (8.7-10.3) mg/dL Total Protein (6.2-8.2) g/dL Albumin (3.8-4.9) g/dL Albumin/Globulin Ratio (1.60-3.17) g/dL Microbiology - Last 24 Hours (Table) 11/09/21 14:20 Blood Culture Gram Stain - Preliminary Blood Blood Culture - Preliminary Staphylococcus epidermidis 11/09/21 14:20 Urine Culture - Preliminary Urine,Voided Group D Enterococcus 11/09/21 14:20 Blood Culture - Final Blood Assessment and Plan Assessment: 1. Fever secondary to urinary tract infection with sepsis 2. Positive blood culture. 3. Recent prolonged hospitalization for CHF and pneumonia 4. Recent abdominal hematoma secondary to heparin drip 5. History of Acute kidney injury 6. History of CVA 7. History of diabetes mellitus type 2 8. History of rheumatoid arthritis 9. Essential hypertension Patient maintained on IV antibiotics Repeat blood cultures ordered Infectious the service is consulted Repeat labs ordered PT OT and sr. social media & mobile manager consulted
[2021-11-11 12:20] LABS: Basophils % (A) 1 %; Eosinophils % (A) 1 %; HCT 22.9 % (34.0-46.0); HGB 7.1 gm/dL (11.4-16.0); Hypochromasia Marked; Lymphocytes # (A) 0.9 k/uL (1.0-4.8); Lymphocytes % (A) 23 %; MCH 30.3 pg (25.0-35.0); MCHC 31.2 g/dL (31.0-37.0); MCV 96.9 fL (80.0-100.0); Monocytes # (A) 0.2 k/uL (0-1.0); Monocytes % (A) 5 %; Neutrophils # (A) 2.7 k/uL (1.3-7.7); Neutrophils % (A) 68 %; Platelet Count 201 k/uL (150-450); RBC 2.36 m/uL (3.80-5.40); RDW 15.4 % (11.5-15.5); WBC 3.9 k/uL (3.8-10.6)
[2021-11-11 12:36] LABS: African American GFR (CKD) 56 (>60 ml/min/1.73 sqM); Anion Gap 5 mmol/L; Blood Urea Nitrogen 29 mg/dL (7-17); Calcium 7.5 mg/dL (8.4-10.2); Carbon Dioxide 23 mmol/L (22-30); Chloride 105 mmol/L (98-107); Glucose 91 mg/dL (74-99); Non-African American GFR(CKD) 49 (>60 ml/min/1.73 sqM); Sodium 133 mmol/L (137-145)
[2021-11-11] MEDS: SODIUM CHLORIDE 0.9% 1,000 ML IV SCH ×2 (12:50→23:10)
[2021-11-11 13:07] LABS: Glucose,Whole Blood 94 mg/dL (75-99)
--- NOTE | 2021-11-11 13:24 | NM ---
EXAMINATION TYPE: NM pul perfusion DATE OF EXAM: 11/11/2021 COMPARISON: CXR from 2 days ago. HISTORY: Shortness of breath. Following administration of 5.06 mCi Tc 99m MAA. Images obtained post injection. FINDINGS: Multiple Small to moderate size scattered defects in the periphery of both lungs including lower lung involvement. IMPRESSION: Nondiagnostic (low or intermediate probability)
--- NOTE | 2021-11-11 14:16 | US ---
EXAMINATION TYPE: US venous doppler duplex LE DATE OF EXAM: 11/11/2021 2:00 PM COMPARISON: Prior ultrasound February 17, 2021 CLINICAL HISTORY: elevated d-dimer. Swelling SIDE PERFORMED: bilateral TECHNIQUE: The lower extremity deep venous system is examined utilizing real time linear array sonog gaibno with graded compression, doppler sonography and color-flow sonography. VESSELS IMAGED: Common Femoral Vein Deep Femoral Vein Greater Saphenous Vein * Femoral Vein Popliteal Vein Small Saphenous Vein * Proximal Calf Veins (* superficial vessels) Right Leg: *positive for DVT CFV extending into popliteal vein Left Leg: *positive for DVT CFV extending into popliteal vein Grayscale, color doppler, spectral doppler imaging performed of the deep veins of the bilateral lower extremities. IMPRESSION: There is now long segment acute DVT bilaterally from groin to past the knee region.
--- NOTE | 2021-11-11 14:17 | US ---
EXAMINATION TYPE: US venous doppler duplex UE DATE OF EXAM: 11/11/2021 COMPARISON: NONE CLINICAL HISTORY: elevated d-dimer. Swelling SIDE PERFORMED: bilateral *technical limitations due to patient's body habitus Right Arm: no evidence of DVT as visualized Left Arm: no evidence of DVT as visualized Grayscale, color doppler, spectral doppler imaging performed of the deep veins of the bilateral upper extremities. There is normal flow, compressibility and vascular waveforms. IMPRESSION: No ultrasound evidence for acute deep or superficial venous thrombosis in either upper ex tremity.
[2021-11-11] MEDS: ACETAMINOPHEN TAB 325 MG TAB PO PRN (15:44)
--- NOTE | 2021-11-11 16:47 | P.CNPUL ---
History of Present Illness Consult date: 11/11/21 Requesting physician: Nenita Shelby Reason for consult: DVT, other Chief complaint: Elevated d-dimer History of present illness: Pulmonary consult dated 11/11/2021. 75-year-old female who presented to the emergency department on 11/09/2021, with elevated temperature. She apparently had temperature for a day or so prior to admission. She was thought to have possibly have urinary tract infection. She was having some cough and chest congestion. She was producing some occasional white phlegm. She did feel chilled and achy. She was admitted to the hospital by Dr. Fernandes with a diagnosis of sepsis, and urinary tract infection. The patient had an elevated d-dimer. Dopplers of the upper extremities were negative. Dopplers of the lower semis reveal bilateral lower extremity DVTs. I was consulted for the elevated d-dimer. The patient's currently on room air with a saturation of between 93 and 94%. The patient is receiving Lovenox 100 mg subcu every 12 hours, and saline at 75 mL an hour. She appears relatively comfortable. She does have lower extremity edema. Perfusion lung scan was nondiagnostic for pulmonary embolism, and was read as low to intermediate probability. White count 3.9, hemoglobin 7.1, hematocrit 22.9, and platelet count 201,000. Sodium 133, potassium 4, chlorides 105, CO2 23, anion gap 5, BUN 29, and creatinine 1.10. Chest x-ray on the day of admission showed some atelectasis and small pleural effusions bilaterally. Review of Systems REVIEW OF SYSTEMS: CONSTITUTIONAL: Fever, body aches. NEUROLOGIC: [ Negative.] HEENT: [ Negative.] CARDIAC: [Negative.] PULMONARY: Cough, with some phlegm production, and mild chest congestion. GI: [Negative.] : [Negative.] RHEUMATOLOGIC: [ Negative.] IMMUNOLOGIC: [ Negative.] ENDOCRINE: [Negative. ] DERMATOLOGIC: [Negative.] Past Medical History Past Medical History: Asthma, CVA/TIA, Diabetes Mellitus, Hyperlipidemia, Hypertension, Rheumatoid Arthritis (RA) Additional Past Medical History / Comment(s): TIA in 2015 History of Any Multi-Drug Resistant Organisms: None Reported Past Surgical History: Appendectomy, Tubal Ligation Additional Past Surgical History / Comment(s): Colonoscopy, cataracts surg sep 30 & 2020 Past Anesthesia/Blood Transfusion Reactions: No Reported Reaction Past Psychological History: No Psychological Hx Reported Smoking Status: Never smoker Past Alcohol Use History: None Reported Past Drug Use History: None Reported - Past Family History Father Family Medical History: Cancer, Congestive Heart Failure (CHF) Additional Family Medical History / Comment(s): colon cancer Mother Family Medical History: Rheumatoid Arthritis (RA) Medications and Allergies Home Medications Medication Instructions Recorded Confirmed Type Metoprolol Succinate (ER) [Toprol 25 mg PO DAILY 05/14/19 11/09/21 History XL] Montelukast [Singulair] 10 mg PO HS #30 tab 05/24/19 11/09/21 Rx Albuterol Inhaler [Ventolin Hfa 1 - 2 puff INHALATION RT-QID PRN 06/14/20 11/09/21 History Inhaler] Tolterodine ER [Detrol LA] 4 mg PO DAILY 06/14/20 11/09/21 History Ferrous Sulfate [Iron (65 MG 325 mg PO HS 02/16/21 11/09/21 History Elemental)] Acetaminophen Tab [Tylenol] 1,000 mg PO Q6H PRN 10/13/21 11/09/21 History Cholecalciferol [Vitamin D3 (25 50 mcg PO DAILY 10/13/21 11/09/21 History Mcg = 1000 Iu)] Ezetimibe [Zetia] 10 mg PO DAILY 10/13/21 11/09/21 History Levothyroxine Sodium [Synthroid] 25 mcg PO DAILY@0600 10/13/21 11/09/21 History glipiZIDE [Glucotrol] 5 mg PO TID@0900,1300,2100 10/13/21 11/09/21 History guaiFENesin [Diabetic Tussin] 200 mg PO Q6H PRN 10/13/21 11/09/21 History prednisoLONE ACETATE 1% OPHTH 1 drop BOTH EYES QID 10/13/21 11/09/21 History [Pred Forte 1%] Cefuroxime Axetil [Ceftin] 500 mg PO BID 7 Days #14 tab 10/25/21 11/09/21 Rx Docusate [Colace] 100 mg PO BID cap 10/25/21 11/09/21 Rx Furosemide [Lasix] 40 mg PO DAILY 30 Days #30 tablet 10/25/21 11/09/21 Rx Pantoprazole Sodium [Protonix] 40 mg PO DAILY 30 Days #30 tab 10/25/21 11/09/21 Rx amLODIPine [Norvasc] 10 mg PO DAILY tab 10/25/21 11/09/21 Rx Dextrose/Dextrin/Maltose 31 gm PO ONCE PRN 11/09/21 11/09/21 History [Insta-Glucose Gel] Glucagon Emergency Kit 1 mg IM ONCE PRN 11/09/21 11/09/21 History Oxymetazoline 0.05% Nasl Confluence 1 spray EA NOSTRIL Q4H PRN 11/09/21 11/09/21 Hi story [Afrin 0.05% Nasal Confluence] predniSONE 5 mg PO DAILY 11/09/21 11/09/21 History Allergies Allergy/AdvReac Type Severity Reaction Status Date / Time atorvastatin [From Lipitor] AdvReac CRAMPS Verified 11/09/21 15:53 latex AdvReac Itching Verified 11/09/21 15:53 Physical Exam Osteopathic Statement: *. No significant issues noted on an osteopathic structural exam other than those noted in the History and Physical/Consult. Vitals: Vital Signs Temp Pulse Resp BP Pulse Ox 11/11/21 16:19 99.0 F 97 22 92 L 11/11/21 13:00 101.2 F H 103 H 32 H 137/61 93 L 11/11/21 10:24 99.2 F 11/11/21 04:30 100.3 F H 112 H 16 146/71 93 L 11/10/21 19:25 98.8 F 111 H 18 150/74 95 Intake and Output 11/11/21 11/11/21 11/11/21 06:59 14:59 22:59 Output Total 600 Balance -600 Output: Urine 600 Other: Voiding Method Indwelling Catheter Weight 108.862 kg No acute distress, oriented 3. Currently on room air. Saturations between 93- 94%. HEENT examination is grossly unremarkable. Neck supple. Full range of motion. No adenopathy thyromegaly or neck vein dist ention. Cardiovascular examination reveals regular rhythm rate. S1-S2 normal. No S3 or S4. No discernible murmur noted. Heart rate 97 bpm. Lungs reveal mild bilateral rhonchi. No wheezes or crackles. Breath sounds equal bilaterally. Abdomen soft bowel sounds are heard. No masses or tenderness. Extremities are intact. No cyanosis or clubbing. Trace edema. Skin is without rash or lesion. Neurologic examination is brief but nonfocal. Results - Laboratory Findings CBC and BMP: 11/11/21 11:26 11/11/21 11:26 PT/INR, D-dimer PT 10.2 sec (9.0-12.0) 11/09/21 13:57 INR 0.9 (<1.2) 11/09/21 13:57 D-Dimer 13.88 mg/L FEU (<0.60) H 11/09/21 13:57 Abnormal lab findings: Abnormal Labs 11/09/21 11/09/21 11/09/21 13:57 13:57 13:57 WBC RBC 2.86 L Hgb 8.4 L Hct 26.4 L RDW Lymphocytes # 0.8 L APTT 16.5 L D-Dimer Sodium 132 L Chloride 96 L BUN 43 H Creatinine 1.19 H Est GFR (CKD-EPI)AfAm Est GFR (CKD-EPI)NonAf BUN/Creatinine Ratio Glucose 101 H POC Glucose (mg/dL) Calcium 7.6 L Total Protein 5.7 L Albumin 2.5 L Albumin/Globulin Ratio Urine Appearance Urine Protein Urine Blood Ur Leukocyte Esterase Urine RBC Urine WBC Urine WBC Clumps Urine Bacteria Urine Yeast (Budding) 11/09/21 11/09/21 11/10/21 13:57 14:20 06:55 WBC 3.1 L RBC 2.49 L Hgb 7.4 L Hct 23.8 L RDW 15.7 H Lymphocytes # 0.7 L APTT D-Dimer 13.88 H Sodium Chloride BUN Creatinine Est GFR (CKD-EPI)AfAm Est GFR (CKD-EPI)NonAf BUN/Creatinine Ratio Glucose POC Glucose (mg/dL) Calcium Total Protein Albumin Albumin/Globulin Ratio Urine Appearance Turbid H Urine Protein 1+ H Urine Blood Large H Ur Leukocyte Esterase Large H Urine RBC 121 H Urine WBC >182 H Urine WBC Clumps Many H Urine Bacteria Many H Urine Yeast (Budding) Many H 11/10/21 11/10/21 11/10/21 06:55 07:30 12:36 WBC RBC Hgb Hct RDW Lymphocytes # APTT D-Dimer Sodium Chloride BUN 31.0 H Creatinine Est GFR (CKD-EPI)AfAm 56.1 L Est GFR (CKD-EPI)NonAf 48.4 L BUN/Creatinine Ratio 28.18 H Glucose POC Glucose (mg/dL) 121 H 118 H Calcium 7.4 L Total Protein 5.0 L Albumin 2.3 L Albumin/Globulin Ratio 0.85 L Urine Appearance Urine Protein Urine Blood Ur Leukocyte Esterase Urine RBC Urine WBC Urine WBC Clumps Urine Bacteria Urine Yeast (Budding) 11/10/21 11/11/21 11/11/21 20:09 07:17 11:26 WBC RBC 2.36 L Hgb 7.1 L Hct 22.9 L RDW Lymphocytes # 0.9 L APTT D-Dimer Sodium Chloride BUN Creatinine Est GFR (CKD-EPI)AfAm Est GFR (CKD-EPI)NonAf BUN/Creatinine Ratio Glucose POC Glucose (mg/dL) 142 H 74 L Calcium Total Protein Albumin Albumin/Globulin Ratio Urine Appearance Urine Protein Urine Blood Ur Leukocyte Esterase Urine RBC Urine WBC Urine WBC Clumps Urine Bacteria Urine Yeast (Budding) 11/11/21 11:26 WBC RBC Hgb Hct RDW Lymphocytes # APTT D-Dimer Sodium 133 L Chloride BUN 29 H Creatinine 1.10 H Est GFR (CKD-EPI)AfAm Est GFR (CKD-EPI)NonAf BUN/Creatinine Ratio Glucose POC Glucose (mg/dL) Calcium 7.5 L Total Protein Albumin Albumin/Globulin Ratio Urine Appearance Urine Protein Urine Blood Ur Leukocyte Esterase Urine RBC Urine WBC Urine WBC Clumps Urine Bacteria Urine Yeast (Budding) - Diagnostic Findings Chest x-ray: image reviewed U/S of Legs: image reviewed Assessment and Plan Assessment: Bilateral lower extremity DVT. History of urinary tract infection secondary to group D enterococcus. History of chronic bronchial asthma. History of CVA. Diabetes mellitus. History of hyperlipidemia. Hypertension by history. History of rheumatoid arthritis. Obesity. Plan: Plan dated 04/11/2022. The patient could be converted to a factor X a inhibitor. We'll follow as needed. Perfusion lung scan was nondiagnostic. No need to pursue pulmonary embolism any further, given the positive Dopplers of the lower extremities. Additional recommendations and suggestions are forthcoming. Prognosis is guarded. We will continue to follow and make recommendations where appropriate. Time with Patient: Greater than 30
[2021-11-11 17:29] LABS: Glucose,Whole Blood 79 mg/dL (75-99)
[2021-11-11 19:52] LABS: Glucose,Whole Blood 95 mg/dL (75-99)
[2021-11-11] MEDS: FERROUS SULFATE 325 MG TAB PO SCH (20:29)
[2021-11-11] MEDS: MONTELUKAST 10 MG TAB PO SCH (20:29)
[2021-11-11] MEDS: ENOXAPARIN 100 MG/ML SYRINGE SQ SCH (20:29)
[2021-11-11] MEDS: DAPTOmycin 500 MG in SODIUM CHLORIDE 0.9% 50 ML IVPB SCH (23:09)
--- NOTE | 2021-11-11 23:09 | PN ---
PROGRESS NOTE DATE OF SERVICE: 11/11/2021 REASON FOR FOLLOWUP: 1. Positive blood culture likely contamination. 2. VRE urinary tract infection. INTERVAL HISTORY: Patient is afebrile. However, the patient did spike a fever this afternoon of 101 degrees Fahrenheit. The patient is currently breathing comfortably on room air. The patient denies having any chest pain. No shortness of breath or cough. No abdominal pain or diarrhea. PHYSICAL EXAMINATION: Blood pressure 133/71 with pulse of 99, temperature 98.2. She is 94% on room air. General description is an elderly female lying in bed in no distress. Respiratory system: Unlabored breathing, decreased breath sounds in the base, with no wheeze. Heart S1, S2. Regular rate and rhythm. Abdomen soft, no tenderness. LABS: Urine has been finalized with VRE. Blood culture with Staph epi. DIAGNOSTIC IMPRESSION AND PLAN: 1. Patient admitted to the hospital with fever, source likely catheter associated urinary tract infection, urine with VRE. Cardoza catheter needs to be changed. Antibiotic will be adjusted to daptomycin. Discontinue Rocephin. 2. Positive blood culture, Staph epi likely contaminant. Repeat culture negative. MMODL / IJN: [id number] /
[2021-11-12] MEDS: guaiFENesin SYRUP 100MG/5ML 200 MG/10 ML CUP PO PRN ×2 (02:49→09:58)
[2021-11-12 02:58] LABS: Appearance,Urine Clear (Clear); Bacteria,Urine Rare /hpf; Bilirubin,Urine Negative (Negative); Blood,Urine Large (Negative); Budding Yeast,Urine Occasional /hpf; Color,Urine Yellow; Glucose,Urine (UA) Negative (Negative); Ketones,Urine Negative (Negative); Leukocyte Esterase,Urine Small (Negative); Mucus,Urine Rare /hpf; Nitrite,Urine Negative (Negative); Protein,Urine Trace (Negative); RBC,Urine 42 /hpf (0-5); Squamous Epithelial Cell,Urine 1 /hpf (0-4); Urobilinogen,Urine <2.0 mg/dL (<2.0); WBC,Urine 20 /hpf (0-5)
[2021-11-12] MEDS: ACETAMINOPHEN TAB 325 MG TAB PO PRN ×3 (04:00→21:52)
[2021-11-12] MEDS: LEVOTHYROXINE 25 MCG TAB PO SCH (05:11)
[2021-11-12 06:39] LABS: ALT 15 U/L (4-34); AST 29 U/L (14-36); African American GFR (CKD) 57 (>60 ml/min/1.73 sqM); Albumin 2.1 g/dL (3.5-5.0); Albumin/Globulin Ratio 0.7; Alkaline Phosphatase 80 U/L (38-126); Anion Gap 6 mmol/L; Blood Urea Nitrogen 26 mg/dL (7-17); Calcium 7.3 mg/dL (8.4-10.2); Carbon Dioxide 25 mmol/L (22-30); Chloride 103 mmol/L (98-107); Globulin 3.2 g/dL; Non-African American GFR(CKD) 50 (>60 ml/min/1.73 sqM); Potassium 3.8 mmol/L (3.5-5.1); Sodium 134 mmol/L (137-145); Total Bilirubin 1.3 mg/dL (0.2-1.3); Total Protein 5.3 g/dL (6.3-8.2)
[2021-11-12 07:03] LABS: Basophils % (A) 1 %; Eosinophils % (A) 1 %; HCT 22.2 % (34.0-46.0); Hypochromasia Marked; Lymphocytes # (A) 0.8 k/uL (1.0-4.8); Lymphocytes % (A) 22 %; MCH 30.1 pg (25.0-35.0); MCHC 30.6 g/dL (31.0-37.0); MCV 98.2 fL (80.0-100.0); Macrocytosis Slight; Mean Platelet Volume 8.3; Monocytes # (A) 0.2 k/uL (0-1.0); Monocytes % (A) 6 %; Neutrophils # (A) 2.4 k/uL (1.3-7.7); Neutrophils % (A) 68 %; Platelet Count 244 k/uL (150-450); RBC 2.26 m/uL (3.80-5.40); RDW 15.8 % (11.5-15.5); WBC 3.6 k/uL (3.8-10.6)
[2021-11-12 07:15] LABS: HGB 6.8 gm/dL (11.4-16.0)
[2021-11-12 07:20] LABS: Glucose 42 mg/dL (74-99)
[2021-11-12 07:23] LABS: Glucose,Whole Blood 50 mg/dL (75-99)
[2021-11-12 07:46] LABS: Glucose,Whole Blood 77 mg/dL (75-99)
[2021-11-12] MEDS: glipiZIDE 5 MG TAB PO SCH (07:57)
[2021-11-12] MEDS: INSULIN ASPART (NovoLOG) 100 UNIT/ML VIAL SQ SCH ×4 (07:57→21:47)
[2021-11-12] MEDS ORDERED: ENOXAPARIN 40 MG/0.4 ML SYRINGE SQ SCH (09:00)
[2021-11-12] MEDS: amLODIPine 10 MG TAB PO SCH (09:00)
[2021-11-12] MEDS: METOPROLOL SUCCINATE (ER) 25 MG TAB.ER.24H PO SCH (09:00)
[2021-11-12] MEDS: FUROSEMIDE 40 MG TAB PO SCH (09:00)
[2021-11-12] MEDS: CHOLECALCIFEROL 25 MCG (1000 IU) TABLET PO SCH (09:00)
[2021-11-12] MEDS: PANTOPRAZOLE 40 MG/10 ML VIAL IV SCH (09:00)
[2021-11-12] MEDS: predniSONE 5 MG TAB PO SCH (09:01)
[2021-11-12] MEDS: ENOXAPARIN 100 MG/ML SYRINGE SQ SCH ×2 (09:01→21:48)
[2021-11-12] MEDS: DOCUSATE 100 MG CAP PO SCH ×2 (09:01→21:47)
[2021-11-12] MEDS: OXYBUTYNIN 10 MG TAB.ER.24 PO SCH (09:01)
[2021-11-12] MEDS: EZETIMIBE 10 MG TAB PO SCH (09:01)
[2021-11-12] MEDS ORDERED: IOPAMIDOL CONTRAST (ORAL USE) VIAL PO PRN (12:28)
[2021-11-12 12:37] LABS: Glucose,Whole Blood 120 mg/dL (75-99)
--- NOTE | 2021-11-12 14:16 | P.PN ---
Subjective Progress Note Date: 11/12/21 Principal diagnosis: Elevated d-dimer. Pulmonary consult dated 11/11/2021. 75-year-old female who presented to the emergency department on 11/09/2021, with elevated temperature. She apparently had temperature for a day or so prior to admission. She was thought to have possibly have urinary tract infection. She was having some cough and chest congestion. She was producing some occasional white phlegm. She did feel chilled and achy. She was admitted to the hospital by Dr. Fernandes with a diagnosis of sepsis, and urinary tract infection. The patient had an elevated d-dimer. Dopplers of the upper extremities were negative. Dopplers of the lower semis reveal bilateral lower extremity DVTs. I was consulted for the elevated d-dimer. The patient's currently on room air with a saturation of between 93 and 94%. The patient is receiving Lovenox 100 mg subcu every 12 hours, and saline at 75 mL an hour. She appears relatively comfortable. She does have lower extremity edema. Perfusion lung scan was nondiagnostic for pulmonary embolism, and was read as low to intermediate probability. White count 3.9, hemoglobin 7.1, hematocrit 22.9, and platelet count 201,000. Sodium 133, potassium 4, chlorides 105, CO2 23, anion gap 5, BUN 29, and creatinine 1.10. Chest x-ray on the day of admission showed some atelectasis and small pleural effusions bilaterally. Progress note dated 11/12/2021. 75-year-old female that I saw in consultation yesterday. She had an elevated d- dimer. Dopplers of the upper extremities were negative. Dopplers of the lower extremities revealed bilateral lower extremity DVT. The patient was placed on Lovenox yesterday at 100 mg subcu every 12 hours. Today, the patient is resting comfortably. The patient is on room air. She is receiving 1 unit of packed red blood cells. Yesterday's hemoglobin was 7.1. The patient is resting c omfortably without any distress whatsoever. Today's lab includes a white count 3.6, hemoglobin 6.8, hematocrit 22.2, and a platelet count of 244,000. Sodium 134, potassium 3.8, chlorides 103, CO2 25, anion gap 6, BUN 26, and a creatinine of 1.08. Microbiology reveals vancomycin resistant enterococci in the urine, and staph epidermidis in the blood. Objective - Vital Signs Vital signs: Vital Signs Temp 98.7 F 11/12/21 13:38 Pulse 102 H 11/12/21 13:38 Resp 17 11/12/21 13:38 BP 116/71 11/12/21 13:38 Pulse Ox 94 L 11/12/21 13:38 Intake & Output 11/11/21 11/12/21 11/12/21 18:59 06:59 18:59 Intake Total 900 1190 550 Output Total 1500 950 300 Balance -600 240 250 Weight 108.862 kg Intake: Intake, IV Titration 900 950 Amount DAPTOmycin 500 mg In 50 Sodium Chloride 0.9% 50 ml @ 100 mls/hr IVPB Q24H [facility] Rx#:[id number] Sodium Chloride 0.9% 1, 900 900 000 ml @ 75 mls/hr IV . [id number] [facility] Rx#:[id number] Oral 240 240 Blood Product 310 Rc As-1 Unit 310 [id number] Output: Urine 1500 950 300 Other: Voiding Method Indwelling Catheter Indwelling Catheter Indwelling Catheter # Voids 1 # Bowel Movements 1 - Exam No acute distress, oriented 3. Currently on room air. Saturations are 94%. HEENT examination is grossly unremarkable. Neck supple. Full range of motion. No adenopathy thyromegaly or neck vein distention. Cardiovascular examination reveals regular rhythm rate. S1-S2 normal. No S3 or S4. No discernible murmur noted. Heart rate 102 bpm. Lungs reveal mild bilateral rhonchi. No wheezes or crackles. Breath sounds equal bilaterally. Abdomen soft bowel sounds are heard. No masses or tenderness. Extremities are intact. No cyanosis or clubbing. Trace edema. Skin is without rash or lesion. Neurologic examination is brief but nonfocal. - Labs CBC & Chem 7: 11/12/21 05:40 11/12/21 05:40 Labs: Abnormal Lab Results - Last 24 Hours (Table) 11/12/21 11/12/21 11/12/21 Range/Units 02:20 05:40 05:40 WBC 3.6 L (3.8-10.6) k/uL RBC 2.26 L (3.80-5.40) m/uL Hgb 6.8 L* (11.4-16.0) gm/dL Hct 22.2 L (34.0-46.0) % MCHC 30.6 L (31.0-37.0) g/dL RDW 15.8 H (11.5-15.5) % Lymphocytes # 0.8 L (1.0-4.8) k/uL Sodium 134 L (137-145) mmol/L BUN 26 H (7-17) mg/dL Creatinine 1.08 H (0.52-1.04) mg/dL Glucose 42 L* (74-99) mg/dL POC Glucose (mg/dL) (75-99) mg/dL Calcium 7.3 L (8.4-10.2) mg/dL Total Protein 5.3 L (6.3-8.2) g/dL Albumin 2.1 L (3.5-5.0) g/dL Urine Protein Trace H (Negative) Urine Blood Large H (Negative) Ur Leukocyte Esterase Small H (Negative) Urine RBC 42 H (0-5) /hpf Urine WBC 20 H (0-5) /hpf Urine Bacteria Rare H (None) /hpf Urine Mucus Rare H (None) /hpf Urine Yeast (Budding) Occasional H (None) /hpf Crossmatch 11/12/21 11/12/21 11/12/21 Range/Units 07:22 08:14 12:35 WBC (3.8-10.6) k/uL RBC (3.80-5.40) m/uL Hgb (11.4-16.0) gm/dL Hct (34.0-46.0) % MCHC (31.0-37.0) g/dL RDW (11.5-15.5) % Lymphocytes # (1.0-4.8) k/uL Sodium (137-145) mmol/L BUN (7-17) mg/dL Creatinine (0.52-1.04) mg/dL Glucose (74-99) mg/dL POC Glucose (mg/dL) 50 L 120 H (75-99) mg/dL Calcium (8.4-10.2) mg/dL Total Protein (6.3-8.2) g/dL Albumin (3.5-5.0) g/dL Urine Protein (Negative) Urine Blood (Negative) Ur Leukocyte Esterase (Negative) Urine RBC (0-5) /hpf Urine WBC (0-5) /hpf Urine Bacteria (None) /hpf Urine Mucus (None) /hpf Urine Yeast (Budding) (None) /hpf Crossmatch See Detail Microbiology - Last 24 Hours (Table) 11/09/21 14:20 Blood Culture Gram Stain - Preliminary Blood Blood Culture - Preliminary Staphylococcus epidermidis 11/12/21 02:20 Urine Culture - Preliminary Urine,Voided 11/10/21 18:22 Blood Culture - Preliminary Blood No Growth after 24 hours 11/10/21 18:22 Blood Culture - Preliminary Blood No Growth after 24 hours 11/09/21 14:20 Urine Culture - Final Urine,Voided Enterococcus faecium VRE Assessment and Plan Assessment: Bilateral lower extremity DVT. History of urinary tract infection secondary to group D enterococcus (VRE). Possible staph epidermidis bacteremia. History of chronic bronchial asthma. History of CVA. Diabetes mellitus. History of hyperlipidemia. Hypertension by history. History of rheumatoid arthritis. Obesity. Plan: Plan dated 04/11/2022. The patient could be converted to a factor X a inhibitor. We'll follow as needed. Perfusion lung scan was nondiagnostic. No need to pursue pulmonary embolism any further, given the positive Dopplers of the lower extremities. Additional recommendations and suggestions are forthcoming. Prognosis is guarded. We will continue to follow and make recommendations where appropriate. Plan dated 11/12/2021. The patient is currently on Lovenox, 100 mg twice a day. The patient is receiving antibiotics for her infection. Her elevated d-dimer is are secondary to her bilateral lower extremity DVTs. We will continue to follow and make recommendations where appropriate. Prognosis is guarded. Respiratory status is stable. She's on room air. She's not complaining of any respiratory difficulty. Time with Patient: Less than 30
[2021-11-12 17:46] LABS: Glucose,Whole Blood 149 mg/dL (75-99)
--- NOTE | 2021-11-12 19:11 | P.PN ---
Subjective Progress Note Date: 11/12/21 I am starting care for this patient on 11/11/2020, Dr Muhammad was covering for me This is an 75-year-old female patient who initially presented to the ER with concerns of fever from [facility] facility. Patient was positive for urinary tract infection. COVID-19 was negative. Patient had recent prolonged hospitalization for acute CHF Exacerbation and right lower lobe pneumonia. During that hospitalization patient was maintained on heparin drip for possible non-ST elevated CT and developed secondary abdominal wall hematoma. Patient to cooperate 2 units are PRBCs. Patient also had secondary acute kidney injury and urinary retention. Urine culture positive for group D enterococcus and blood culture positive for staphylococcus epidermis. Patient has been started on IV antibiotics. Infectious disease services were consulted. On 11/11/2021 patient's alert and oriented 3 resting comfortably in bed. Patient remains on IV antibiotics. Patient still having elevated temps. At this time patient denies chest pain or shortness of breath. Diarrhea. Patient denies any urinary burning or frequency On 11/12/2021 patient was seen and examined on the medical floor she is alert and oriented 3 in no apparent distress she had elevated d-dimer lower extremity Doppler revealed bilateral lower extremity DVT she was started on full therapeutic dose of Lovenox this morning her hemoglobin was down to 6.8 she received 1 unit of red blood cell transfusion otherwise she continues to be on IV antibiotics she denies any complaints at this time Objective - Vital Signs Vital signs: Vital Signs Temp 98.7 F 11/12/21 13:38 Pulse 102 H 11/12/21 13:38 Resp 17 11/12/21 13:38 BP 116/71 11/12/21 13:38 Pulse Ox 94 L 11/12/21 13:38 Intake & Output 11/11/21 11/12/21 11/12/21 18:59 06:59 18:59 Intake Total 900 1190 550 Output Total 1500 950 300 Balance -600 240 250 Weight 108.862 kg Intake: Intake, IV Titration 900 950 Amount DAPTOmycin 500 mg In 50 Sodium Chloride 0.9% 50 ml @ 100 mls/hr IVPB Q24H [facility] Rx#:[id number] Sodium Chloride 0.9% 1, 900 900 000 ml @ 75 mls/hr IV . [id number] [facility] Rx#:[id number] Oral 240 240 Blood Product 310 Rc As-1 Unit 310 [id number] Output: Urine 1500 950 300 Other: Voiding Method Indwelling Catheter Indwelling Catheter Indwelling Catheter # Voids 1 # Bowel Movements 1 - Exam Head normocephalic Neck supple Lungs clear to auscultation bilaterally no wheezing or crackles Heart regular rate and rhythm S1-S2, no rub or gallop Abdomen is soft nontender nondistended positive bowel sounds no hepatosplenomegaly Extremities no edema Neuro alert and orientated to 3 - Labs CBC & Chem 7: 11/12/21 05:40 11/12/21 05:40 Labs: Abnormal Lab Results - Last 24 Hours (Table) 11/12/21 11/12/21 11/12/21 Range/Units 02:20 05:40 05:40 WBC 3.6 L (3.8-10.6) k/uL RBC 2.26 L (3.80-5.40) m/uL Hgb 6.8 L* (11.4-16.0) gm/dL Hct 22.2 L (34.0-46.0) % MCHC 30.6 L (31.0-37.0) g/dL RDW 15.8 H (11.5-15.5) % Lymphocytes # 0.8 L (1.0-4.8) k/uL Sodium 134 L (137-145) mmol/L BUN 26 H (7-17) mg/dL Creatinine 1.08 H (0.52-1.04) mg/dL Glucose 42 L* (74-99) mg/dL POC Glucose (mg/dL) (75-99) mg/dL Calcium 7.3 L (8.4-10.2) mg/dL Total Protein 5.3 L (6.3-8.2) g/dL Albumin 2.1 L (3.5-5.0) g/dL Urine Protein Trace H (Negative) Urine Blood Large H (Negative) Ur Leukocyte Esterase Small H (Negative) Urine RBC 42 H (0-5) /hpf Urine WBC 20 H (0-5) /hpf Urine Bacteria Rare H (None) /hpf Urine Mucus Rare H (None) /hpf Urine Yeast (Budding) Occasional H (None) /hpf Crossmatch 11/12/21 11/12/21 11/12/21 Range/Units 07:22 08:14 12:35 WBC (3.8-10.6) k/uL RBC (3.80-5.40) m/uL Hgb (11.4-16.0) gm/dL Hct (34.0-46.0) % MCHC (31.0-37.0) g/dL RDW (11.5-15.5) % Lymphocytes # (1.0-4.8) k/uL Sodium (137-145) mmol/L BUN (7-17) mg/dL Creatinine (0.52-1.04) mg/dL Glucose (74-99) mg/dL POC Glucose (mg/dL) 50 L 120 H (75-99) mg/dL Calcium (8.4-10.2) mg/dL Total Protein (6.3-8.2) g/dL Albumin (3.5-5.0) g/dL Urine Protein (Negative) Urine Blood (Negative) Ur Leukocyte Esterase (Negative) Urine RBC (0-5) /hpf Urine WBC (0-5) /hpf Urine Bacteria (None) /hpf Urine Mucus (None) /hpf Urine Yeast (Budding) (None) /hpf Crossmatch See Detail Microbiology - Last 24 Hours (Table) 11/09/21 14:20 Blood Culture Gram Stain - Final Blood Blood Culture - Final Staphylococcus epidermidis 11/12/21 02:20 Urine Culture - Preliminary Urine,Voided 11/10/21 18:22 Blood Culture - Preliminary Blood No Growth after 24 hours 11/10/21 18:22 Blood Culture - Preliminary Blood No Growth after 24 hours 11/09/21 14:20 Urine Culture - Final Urine,Voided Enterococcus faecium VRE Assessment and Plan Assessment: 1. Fever secondary to urinary tract infection with sepsis 2. Positive blood culture. 3. Recent prolonged hospitalization for CHF and pneumonia 4. Recent abdominal hematoma secondary to heparin drip 5. History of Acute kidney injury 6. History of CVA 7. History of diabetes mellitus type 2 8. History of rheumatoid arthritis 9. Essential hypertension Patient maintained on IV antibiotics Repeat blood cultures ordered Infectious the service is consulted Repeat labs ordered PT OT and drug abuse social worker consulted
[2021-11-12 21:19] LABS: Glucose,Whole Blood 89 mg/dL (75-99)
[2021-11-12] MEDS: SODIUM CHLORIDE 0.9% 1,000 ML IV SCH (21:47)
[2021-11-12] MEDS: MONTELUKAST 10 MG TAB PO SCH (21:47)
[2021-11-12] MEDS: FERROUS SULFATE 325 MG TAB PO SCH (21:47)
[2021-11-12] MEDS: DAPTOmycin 500 MG in SODIUM CHLORIDE 0.9% 50 ML IVPB SCH (21:52)
--- NOTE | 2021-11-12 22:46 | P.CONS ---
History of Present Illness - Reason for Consult Consult date: 11/12/21 massive hematoma on IV heparin 10/16 Requesting physician: Nenita Shelby - Chief Complaint UTI, sepsis - History of Present Illness Ms. Celestin is a very pleasant female we have been asked to see as she has been diagnosed with BLE DVT, VQ low probability for PE. early Oct 2021 she was admitted with NSTEMI and was started on heparin drip. within about 48 hours she became hypotensive and was found to have a significant abd wall hematoma. She denies any bleeding problems in the past, she has been on asa and plavix for CVA with no bleeding problems. She is currently admitted with positive UA and blood cultures. her Hgb is 6.8 today and she is receiving a unit of blood. Of note she does have a degree of CKD. Denies history of blood clots, no family history. Review of Systems 10 point Ros is neg except as stated in HPI Past Medical History Past Medical History: Asthma, CVA/TIA, Diabetes Mellitus, Hyperlipidemia, Hypertension, Rheumatoid Arthritis (RA) Additional Past Medical History / Comment(s): TIA in 2015 History of Any Multi-Drug Resistant Organisms: None Reported Past Surgical History: Appendectomy, Tubal Ligation Additional Past Surgical History / Comment(s): Colonoscopy, cataracts surg sep 30 & 2020 Past Anesthesia/Blood Transfusion Reactions: No Reported Reaction Past Psychological History: No Psychological Hx Reported Smoking Status: Never smoker Past Alcohol Use History: None Reported Past Drug Use History: None Reported - Past Family History Father Family Medical History: Cancer, Congestive Heart Failure (CHF) Additional Family Medical History / Comment(s): colon cancer Mother Family Medical History: Rheumatoid Arthritis (RA) Medications and Allergies Home Medications Medication Instructions Recorded Confirmed Type Metoprolol Succinate (ER) [Toprol 25 mg PO DAILY 05/14/19 11/09/21 History XL] Montelukast [Singulair] 10 mg PO HS #30 tab 05/24/19 11/09/21 Rx Albuterol Inhaler [Ventolin Hfa 1 - 2 puff INHALATION RT-QID PRN 06/14/20 11/09/21 History Inhaler] Tolterodine ER [Detrol LA] 4 mg PO DAILY 06/14/20 11/09/21 History Ferrous Sulfate [Iron (65 MG 325 mg PO HS 02/16/21 11/09/21 History Elemental)] Acetaminophen Tab [Tylenol] 1,000 mg PO Q6H PRN 10/13/21 11/09/21 History Cholecalciferol [Vitamin D3 (25 50 mcg PO DAILY 10/13/21 11/09/21 History Mcg = 1000 Iu)] Ezetimibe [Zetia] 10 mg PO DAILY 10/13/21 11/09/21 History Levothyroxine Sodium [Synthroid] 25 mcg PO DAILY@0600 10/13/21 11/09/21 History glipiZIDE [Glucotrol] 5 mg PO TID@0900,1300,2100 10/13/21 11/09/21 History guaiFENesin [Diabetic Tussin] 200 mg PO Q6H PRN 10/13/21 11/09/21 History prednisoLONE ACETATE 1% OPHTH 1 drop BOTH EYES QID 10/13/21 11/09/21 History [Pred Forte 1%] Cefuroxime Axetil [Ceftin] 500 mg PO BID 7 Days #14 tab 10/25/21 11/09/21 Rx Docusate [Colace] 100 mg PO BID cap 10/25/21 11/09/21 Rx Furosemide [Lasix] 40 mg PO DAILY 30 Days #30 tablet 10/25/21 11/09/21 Rx Pantoprazole Sodium [Protonix] 40 mg PO DAILY 30 Days #30 tab 10/25/21 11/09/21 Rx amLODIPine [Norvasc] 10 mg PO DAILY tab 10/25/21 11/09/21 Rx Dextrose/Dextrin/Maltose 31 gm PO ONCE PRN 11/09/21 11/09/21 History [Insta-Glucose Gel] Glucagon Emergency Kit 1 mg IM ONCE PRN 11/09/21 11/09/21 History Oxymetazoline 0.05% Nasl [place] 1 spray EA NOSTRIL Q4H PRN 11/09/21 11/09/21 History [Afrin 0.05% Nasal [place]] predniSONE 5 mg PO DAILY 11/09/21 11/09/21 History Allergies Allergy/AdvReac Type Severity Reaction Status Date / Time atorvastatin [From Lipitor] AdvReac CRAMPS Verified 11/09/21 15:53 latex AdvReac Itching Verified 11/09/21 15:53 Physical Exam Vitals: Vital Signs Temp Pulse Pulse Resp BP BP Pulse Ox 11/12/21 10:34 100.2 F H 118 H 18 145/75 92 L 11/12/21 10:04 99.3 F 117 H 19 88/50 95 11/12/21 09:54 99.6 F 111 H 20 127/75 95 11/12/21 08:57 99.4 F 110 H 98/59 94 L 11/12/21 08:00 113 H 18 11/12/21 06:00 98.7 F 112 H 11/12/21 03:50 101.7 F H 127 H 16 149/78 94 L 11/11/21 19:15 98.2 F 99 18 133/71 94 L 11/11/21 16:19 99.0 F 97 22 92 L 11/11/21 13:00 101.2 F H 103 H 32 H 137/61 93 L Intake and Output 11/11/21 11/12/21 11/12/21 22:59 06:59 14:59 Intake Total 900 1190 240 Output Total 1500 950 300 Balance -600 240 -60 Intake: Intake, IV Titration 900 950 Amount DAPTOmycin 500 mg In 50 Sodium Chloride 0.9% 50 ml @ 100 mls/hr IVPB Q24H [facility] Rx#:[id number] Sodium Chloride 0.9% 1, 900 900 000 ml @ 75 mls/hr IV . [id number] [facility] Rx#:[id number] Oral 240 240 Blood Product 0 Rc As-1 Unit 0 [id number] Output: Urine 1500 950 300 Other: Voiding Method Indwelling Catheter Indwelling Catheter # Voids 1 # Bowel Movements 1 - Constitutional General appearance: cooperative, morbidly obese, no acute distress - EENT Eyes: anicteric sclerae, EOMI ENT: hearing grossly normal, normal oropharynx - Neck Neck: no lymphadenopathy - Respiratory Respiratory: bilateral: CTA - Cardiovascular tachycardia Heart sounds: normal: S1, S2 Abnormal Heart Sounds: no systolic murmur, no diastolic murmur, no rub, no S3 Gallop, no S4 Gallop, no click, no other leg Peripheral Edema: bilateral: 2+ - Gastrointestinal General gastrointestinal: no absent bowel sounds, no decreased bowel sounds, no distended, no hepatomegaly, no hyperactive bowel sounds, normal bowel sounds, no organomegaly, no rigid, no scaphoid, soft, no splenomegaly, no tenderness, no umbilical hernia, no ventral hernia - Neurologic Neurologic: CNII-XII intact - Musculoskeletal Musculoskeletal: generalized weakness - Psychiatric Psychiatric: A&O x's 3, appropriate affect, intact judgment & insight Results CBC & Chem 7: 11/12/21 05:40 11/12/21 05:40 Labs: Abnormal Lab Results - Last 24 Hours (Table) 11/11/21 11/12/21 11/12/21 Range/Units 11:26 02:20 05:40 WBC 3.6 L (3.8-10.6) k/uL RBC 2.26 L (3.80-5.40) m/uL Hgb 6.8 L* (11.4-16.0) gm/dL Hct 22.2 L (34.0-46.0) % MCHC 30.6 L (31.0-37.0) g/dL RDW 15.8 H (11.5-15.5) % Lymphocytes # 0.8 L (1.0-4.8) k/uL Sodium 133 L (137-145) mmol/L BUN 29 H (7-17) mg/dL Creatinine 1.10 H (0.52-1.04) mg/dL Glucose (74-99) mg/dL POC Glucose (mg/dL) (75-99) mg/dL Calcium 7.5 L (8.4-10.2) mg/dL Total Protein (6.3-8.2) g/dL Albumin (3.5-5.0) g/dL Urine Protein Trace H (Negative) Urine Blood Large H (Negative) Ur Leukocyte Esterase Small H (Negative) Urine RBC 42 H (0-5) /hpf Urine WBC 20 H (0-5) /hpf Urine Bacteria Rare H (None) /hpf Urine Mucus Rare H (None) /hpf Urine Yeast (Budding) Occasional H (None) /hpf Crossmatch 11/12/21 11/12/21 11/12/21 Range/Units 05:40 07:22 08:14 WBC (3.8-10.6) k/uL RBC (3.80-5.40) m/uL Hgb (11.4-16.0) gm/dL Hct (34.0-46.0) % MCHC (31.0-37.0) g/dL RDW (11.5-15.5) % Lymphocytes # (1.0-4.8) k/uL Sodium 134 L (137-145) mmol/L BUN 26 H (7-17) mg/dL Creatinine 1.08 H (0.52-1.04) mg/dL Glucose 42 L* (74-99) mg/dL POC Glucose (mg/dL) 50 L (75-99) mg/dL Calcium 7.3 L (8.4-10.2) mg/dL Total Protein 5.3 L (6.3-8.2) g/dL Albumin 2.1 L (3.5-5.0) g/dL Urine Protein (Negative) Urine Blood (Negative) Ur Leukocyte Esterase (Negative) Urine RBC (0-5) /hpf Urine WBC (0-5) /hpf Urine Bacteria (None) /hpf Urine Mucus (None) /hpf Urine Yeast (Budding) (None) /hpf Crossmatch See Detail Microbiology - Last 24 Hours (Table) 11/12/21 02:20 Urine Culture - Preliminary Urine,Voided 11/10/21 18:22 Blood Culture - Preliminary Blood No Growth after 24 hours 11/10/21 18:22 Blood Culture - Preliminary Blood No Growth after 24 hours 11/09/21 14:20 Urine Culture - Final Urine,Voided Enterococcus faecium VRE Comments: VQ report reviewed Venous US: report reviewed Assessment and Plan (1) DVT (deep venous thrombosis) Narrative/Plan: BLE DVT, acute. Pt had significant abd hematoma after being on heparin drip about 4 weeks ago for NSTEMI. She is now needing to be anticoagulated for BLE DVT. She had a dose of lovenox this AM. Her Hgb was 6.8 today, she was ordered a unit of blood. With recent significant bleed recommendation would be for retrievable IVC filter placement. CT AP to assess previous hematoma. Could consider lovenox in near future with close monitoring of Hgb. Current Visit: Yes Status: Acute Priority: High Code(s): I82.409 - ACUTE EMBOLISM AND THOMBOS UNSP DEEP VN UNSP LOWER EXTREMITY SNOMED Code(s): 904504307 (2) Anemia Narrative/Plan: On chart review she was noted to be significantly anemic around February 2021. She is also noted to have an increase in her creatinine at that time as well. Her Hgb was in the 8 range on DC in Oct. It was 8 range this admit. Hgb has cont to decrease. Iron studies, B12 and folate were not significantly low. No ferritin was checked this visit and will be altered after transfusion and may be elevated in response to inflammation and infection. Ok to continue oral iron for now. Check erythropoetin to see if pt woudl be a candidate for epo. Transfuse for Hgb <7. Current Visit: Yes Status: Acute Priority: High Code(s): D64.9 - ANEMIA, UNSPECIFIED SNOMED Code(s): 289837908
[2021-11-12] MEDS: ONDANSETRON 4 MG/2 ML VIAL IVP PRN (23:27)
--- NOTE | 2021-11-12 23:58 | PN ---
PROGRESS NOTE DATE OF SERVICE: 11/12/2021 REASON FOR FOLLOW UP: VRE urinary tract infection. INTERVAL HISTORY: The patient overall feels better and has improved. Had a temperature of 100.2 this morning. The patient denies having any chest pain, shortness of breath or cough. No abdominal pain no diarrhea. PHYSICAL EXAMINATION: Blood pressure 145/75 with a pulse of 118, temperature 100.2. She is 92% on room air. General description is an elderly female lying in bed in no distress. Respiratory system: Unlabored breathing, clear to auscultation anteriorly. Heart S1, S2. Regular rate and rhythm. Abdomen soft, no tenderness. LABS: No new labs have been obtained today. Blood culture repeat is so far negative. DIAGNOSTIC IMPRESSION AND PLAN: 1. Patient has possible Staph epi likely skin contamination, no need for further antibiotic therapy. 2. VRE UTI. Continue with daptomycin and monitor clinical course closely. MMODL / IJN: [id number] /
[2021-11-13 03:55] LABS: Glucose,Whole Blood 75 mg/dL (75-99)
[2021-11-13] MEDS: ALBUTEROL NEBULIZED 2.5 MG/3 ML INHALATION PRN (05:04)
[2021-11-13 05:20] LABS: Glucose,Whole Blood 144 mg/dL (75-99)
[2021-11-13] MEDS: SODIUM CHLORIDE 0.9% 1,000 ML IV SCH ×2 (05:54→20:02)
[2021-11-13] MEDS: LEVOTHYROXINE 25 MCG TAB PO SCH (05:54)
[2021-11-13 06:55] LABS: Basophils % (A) 1 %; Eosinophils % (A) 1 %; HCT 26.1 % (34.0-46.0); HGB 7.9 gm/dL (11.4-16.0); Hypochromasia Marked; Lymphocytes % (A) 23 %; MCH 29.9 pg (25.0-35.0); MCHC 30.3 g/dL (31.0-37.0); MCV 98.9 fL (80.0-100.0); Macrocytosis Slight; Mean Platelet Volume 8.1; Monocytes # (A) 0.2 k/uL (0-1.0); Monocytes % (A) 4 %; Neutrophils % (A) 70 %; Platelet Count 278 k/uL (150-450); RBC 2.64 m/uL (3.80-5.40); RDW 15.4 % (11.5-15.5); WBC 4.3 k/uL (3.8-10.6)
[2021-11-13 07:27] LABS: Glucose,Whole Blood 94 mg/dL (75-99)
[2021-11-13] MEDS: INSULIN ASPART (NovoLOG) 100 UNIT/ML VIAL SQ SCH ×4 (07:36→21:00)
--- NOTE | 2021-11-13 08:23 | P.GSCN ---
History of Present Illness History of present illness: This is 75-year-old old -Turk[place] female patient has been admitted with history of acute congestive congestive heart failure tract infections, non-ST elevation [place] patient started on heparin. Patient did developed abdominal wall hematoma. She received 2 units of blood and her hemoglobin is 7. Hasn't patient is on Lovenox no evidence of bleeding. I was consulted for possible placement of filter. Past history patient had history of appendectomy in the past patient also has history of diabetes On the neck is supple no bruit appreciated Abdomen soft mild tenderness noted on the right upper quadrant port sounds are present in her vascular examination patient has a bilateral leg swelling femorals are 1+ Ultrasound of the neck shows DVT involving the femoral and popliteal vein bilateral upper extremity was negative for DVT Plan is and 2 new with Lovenox I will discuss with Dr. Garcia and hematology follow with you Past Medical History Past Medical History: Asthma, CVA/TIA, Diabetes Mellitus, Hyperlipidemia, Hypertension, Rheumatoid Arthritis (RA) Additional Past Medical History / Comment(s): TIA in 2015 History of Any Multi-Drug Resistant Organisms: None Reported Past Surgical History: Appendectomy, Tubal Ligation Additional Past Surgical History / Comment(s): Colonoscopy, cataracts surg sep 30 & 2020 Past Anesthesia/Blood Transfusion Reactions: No Reported Reaction Past Psychological History: No Psychological Hx Reported Smoking Status: Never smoker Past Alcohol Use History: None Reported Past Drug Use History: None Reported - Past Family History Father Family Medical History: Cancer, Congestive Heart Failure (CHF) Additional Family Medical History / Comment(s): colon cancer Mother Family Medical History: Rheumatoid Arthritis (RA) Medications and Allergies Home Medications Medication Instructions Recorded Confirmed Type Metoprolol Succinate (ER) [Toprol 25 mg PO DAILY 05/14/19 11/09/21 History XL] Montelukast [Singulair] 10 mg PO HS #30 tab 05/24/19 11/09/21 Rx Albuterol Inhaler [Ventolin Hfa 1 - 2 puff INHALATION RT-QID PRN 06/14/20 11/09/21 History Inhaler] Tolterodine ER [Detrol LA] 4 mg PO DAILY 06/14/20 11/09/21 History Ferrous Sulfate [Iron (65 MG 325 mg PO HS 02/16/21 11/09/21 History Elemental)] Acetaminophen Tab [Tylenol] 1,000 mg PO Q6H PRN 10/13/21 11/09/21 History Cholecalciferol [Vitamin D3 (25 50 mcg PO DAILY 10/13/21 11/09/21 History Mcg = 1000 Iu)] Ezetimibe [Zetia] 10 mg PO DAILY 10/13/21 11/09/21 History Levothyroxine Sodium [Synthroid] 25 mcg PO DAILY@0600 10/13/21 11/09/21 History glipiZIDE [Glucotrol] 5 mg PO TID@0900,1300,2100 10/13/21 11/09/21 History guaiFENesin [Diabetic Tussin] 200 mg PO Q6H PRN 10/13/21 11/09/21 History prednisoLONE ACETATE 1% OPHTH 1 drop BOTH EYES QID 10/13/21 11/09/21 History [Pred Forte 1%] Cefuroxime Axetil [Ceftin] 500 mg PO BID 7 Days #14 tab 10/25/21 11/09/21 Rx Docusate [Colace] 100 mg PO BID cap 10/25/21 11/09/21 Rx Furosemide [Lasix] 40 mg PO DAILY 30 Days #30 tablet 10/25/21 11/09/21 Rx Pantoprazole Sodium [Protonix] 40 mg PO DAILY 30 Days #30 tab 10/25/21 11/09/21 Rx amLODIPine [Norvasc] 10 mg PO DAILY tab 10/25/21 11/09/21 Rx Dextrose/Dextrin/Maltose 31 gm PO ONCE PRN 11/09/21 11/09/21 History [Insta-Glucose Gel] Glucagon Emergency Kit 1 mg IM ONCE PRN 11/09/21 11/09/21 History Oxymetazoline 0.05% Nasl [place] 1 spray EA NOSTRIL Q4H PRN 11/09/21 11/09/21 History [Afrin 0.05% Nasal [place]] predniSONE 5 mg PO DAILY 11/09/21 11/09/21 History Allergies Allergy/AdvReac Type Severity Reaction Status Date / Time atorvastatin [From Lipitor] AdvReac CRAMPS Verified 11/09/21 15:53 latex AdvReac Itching Verified 11/09/21 15:53 Surgical - Exam Vital Signs Temp Pulse Resp BP Pulse Ox 103.4 F H 119 H 18 132/53 93 L 11/09/21 13:04 11/09/21 13:04 11/09/21 13:04 11/09/21 13:04 11/09/21 13:04 Results - Labs 11/13/21 06:39 11/12/21 05:40 Abnormal Lab Results - Last 24 Hours (Table) 11/12/21 11/12/21 11/12/21 Range/Units 08:14 12:35 17:44 RBC (3.80-5.40) m/uL Hgb (11.4-16.0) gm/dL Hct (34.0-46.0) % MCHC (31.0-37.0) g/dL POC Glucose (mg/dL) 120 H 149 H (75-99) mg/dL Crossmatch See Detail 11/13/21 11/13/21 Range/Units 05:08 06:39 RBC 2.64 L (3.80-5.40) m/uL Hgb 7.9 L (11.4-16.0) gm/dL Hct 26.1 L (34.0-46.0) % MCHC 30.3 L (31.0-37.0) g/dL POC Glucose (mg/dL) 144 H (75-99) mg/dL Crossmatch Microbiology - Last 24 Hours (Table) 11/10/21 18:22 Blood Culture - Preliminary Blood No Growth after 48 hours 11/10/21 18:22 Blood Culture - Preliminary Blood No Growth after 48 hours 11/09/21 14:20 Blood Culture Gram Stain - Final Blood Blood Culture - Final Staphylococcus epidermidis 11/12/21 02:20 Urine Culture - Preliminary Urine,Voided
[2021-11-13] MEDS: DOCUSATE 100 MG CAP PO SCH ×2 (09:35→20:59)
[2021-11-13] MEDS: CHOLECALCIFEROL 25 MCG (1000 IU) TABLET PO SCH (09:35)
[2021-11-13] MEDS: PANTOPRAZOLE 40 MG/10 ML VIAL IV SCH (09:35)
[2021-11-13] MEDS: amLODIPine 10 MG TAB PO SCH (09:35)
[2021-11-13] MEDS: FUROSEMIDE 40 MG TAB PO SCH (09:35)
[2021-11-13] MEDS: METOPROLOL SUCCINATE (ER) 25 MG TAB.ER.24H PO SCH (09:35)
[2021-11-13] MEDS: OXYBUTYNIN 10 MG TAB.ER.24 PO SCH (09:36)
[2021-11-13] MEDS: predniSONE 5 MG TAB PO SCH (09:36)
[2021-11-13] MEDS: EZETIMIBE 10 MG TAB PO SCH (09:36)
--- NOTE | 2021-11-13 09:47 | CT ---
EXAMINATION TYPE: CT abdomen pelvis wo con DATE OF EXAM: 11/13/2021 COMPARISON: 10/16/2021 INDICATION: Hematoma DLP: 1189 mGycm, Automated exposure control for dose reduction was used. CONTRAST: 0 mL of Isovue 300. Study performed without Oral Contrast TECHNIQUE: Axial images were obtained from above the diaphragm to the pubic rami in the axial plane a t 5 mm thick sections. Reconstructed images are reviewed on the computer in the coronal plane. FINDINGS: Limited CT sections are obtained the lung bases. Minimal pleural fluid collections are present. Ther e is adjacent infiltrate may be some mild compressive atelectasis. Note is made of some coronary dayday ry calcification. CT ABDOMEN: There is a rectus abdominis muscle hematoma measuring 11.6 x 3.8 cm. This is diminished f rom comparison. There is a residual collection in the anterior pelvis measuring 5.6 x 2.7 cm this is diminished in size from comparison. Small hematoma at this location may be present. Some fluid adjace nt to the urinary bladder is evident. Some fluid in the right iliac chain is present. Small periumbilical fat-containing hernia is present. No loops of bowel are involved. Liver: Normal Spleen: Normal Pancreas: Normal Adrenal glands: The adrenal glands are normal. Gallbladder: Gallstones present. Kidneys: No masses are evident. No hydronephrosis is present. No cysts are present. No suspicious renal stones are evident. Aorta: Vascular calcification is within the aorta. Inferior vena cava: Normal. CT PELVIS: Loops of bowel within the abdomen and pelvis are normal. There are loops of bowel which are incom pletely distended or lack oral contrast limiting their evaluation. Appendix: Normal as visualized. Urinary bladder: Decompressed with Cardoza catheter. Genitourinary structures: Uterus appears normal. Adnexa appear within normal limits. Osseous structures: No suspicious lytic or sclerotic lesions. Sacroiliac joint degenerative changes a re present. Facet hypertrophy is present. Spondylosis is present. IMPRESSIONS: 1. Anterior abdominal wall hernia anterior pelvic hematomas are smaller than the comparison study. N o new intracranial hemorrhage is identified. 2. Cholelithiasis. 3. Small bilateral pleural fluid collections with adjacent compressive atelectasis.
[2021-11-13 11:43] LABS: Glucose,Whole Blood 106 mg/dL (75-99)
--- NOTE | 2021-11-13 11:59 | CDI ---
Documentation Clarification Form Date: 11/13/2021 11:37:10 AM From: Jacy Nunse RN CCDS Admit Date: 11/09/2021 03:17:00 PM Patient Name: Nancy Celestin Visit Number: [id number] Discharge Date: ATTENTION: The Clinical Documentation Specialists (CDI) and [facility] Coding Staff appreciate your assistance in clarifying documentation. Please respond to the clarification below the line at the bottom and electronically sign. The CDI & [facility] Coding staff will review the response and follow-up if needed. Please note: Queries are made part of the Legal Health Record. If you have any questions, please contact the author of this message via ITS. Dr. Nenita Silva Sacrum, stage 2 pressure ulcer is documented by Nursing 11/11 thru present, Nursing Pressure Injury Assessment. History/Risk Factors: 75-year-old female presents to the ED with fever, cough and abnormal urine exam done outpt. Medical History: CVA, DM, HTN, HLD, Clinical Indicators: Nursing Pressure Injury Assessment 11/11 thru present. Location: Sacrum Wound description: Afshan Wound: Excoriation; Texture: Induration; Afshan-Wound Moisture: Moist. No drainage. Treatment: 11/11 to current Turn and positioning Q two hours; Absorbent pad; Oral Supplement BID Additional clarification is requested regarding the Pressure Injury. [ X ] Sacrum Pressure Ulcer Stage 2 POA [ ] Other condition, please specify [ ] Unable to determine Clinical Definitions: Stage 1 Pressure Ulcer: intact skin, non-blanching redness of local area Stage 2 Pressure Ulcer: Partial thickness, loss of dermis, pink wound bed Stage 3 Pressure Ulcer: Full thickness tissue loss Stage 4 Pressure Ulcer: Full thickness tissue loss with exposed bone, tendon, or muscle. Unstageable pressure ulcer: Full thickness tissue loss in which the base of the ulcer is covered by slough (yellow, adams, fuller, green or brown) and/or eschar (adams, brown or black) in the wound bed. (Template Last Revised: January 2021) SARKIS
--- NOTE | 2021-11-13 12:18 | P.PN ---
Subjective Progress Note Date: 11/13/21 I am starting care for this patient on 11/11/2020, Dr Muhammad was covering for me This is an 75-year-old female patient who initially presented to the ER with concerns of fever from [facility] facility. Patient was positive for urinary tract infection. COVID-19 was negative. Patient had recent prolonged hospitalization for acute CHF Exacerbation and right lower lobe pneumonia. During that hospitalization patient was maintained on heparin drip for possible non-ST elevated [place] and developed secondary abdominal wall hematoma. Patient to cooperate 2 units are PRBCs. Patient also had secondary acute kidney injury and urinary retention. Urine culture positive for group D enterococcus and blood culture positive for staphylococcus epidermis. Patient has been started on IV antibiotics. Infectious disease services were consulted. On 11/11/2021 patient's alert and oriented 3 resting comfortably in bed. Patient remains on IV antibiotics. Patient still having elevated temps. At this time patient denies chest pain or shortness of breath. Diarrhea. Patient denies any urinary burning or frequency On 11/12/2021 patient was seen and examined on the medical floor she is alert and oriented 3 in no apparent distress she had elevated d-dimer lower extremity Doppler revealed bilateral lower extremity DVT she was started on full therapeutic dose of Lovenox this morning her hemoglobin was down to 6.8 she received 1 unit of red blood cell transfusion otherwise she continues to be on IV antibiotics she denies any complaints at this time On 11/13/2009 to patient's alert and oriented 3. She will globin improving to 7.9 status post 1 unit of PRBCs. Definitive plans for IVC filter. Hematology and vascular surgery following. Patient remains on IV antibiotics. At that t verena patient denies chest pain.. Patient denies shortness breath. Patient denies nausea vomiting or diarrhea. Patient denies any urinary burning or frequency Objective - Vital Signs Vital signs: Vital Signs Temp 100.3 F H 11/13/21 11:20 Pulse 109 H 11/13/21 11:20 Resp 20 11/13/21 11:20 BP 130/74 11/13/21 11:20 Pulse Ox 94 L 11/13/21 11:20 Intake & Output 11/12/21 11/13/21 11/13/21 18:59 06:59 18:59 Intake Total 1450 310 Output Total 300 2200 900 Balance 1150 -1890 -900 Intake: IV 10 Invasive Line 2 10 Intake, IV Titration 900 Amount Sodium Chloride 0.9% 1, 900 000 ml @ 75 mls/hr IV . [id number] [facility] Rx#:[id number] Oral 240 300 Blood Product 310 Rc As-1 Unit 310 [id number] Output: Urine 300 2200 900 Other: Voiding Method Indwelling Catheter Indwelling Catheter Indwelling Catheter # Voids 1 # Bowel Movements 1 - Exam Head normocephalic Neck supple Lungs clear to auscultation bilaterally no wheezing or crackles Heart regular rate and rhythm S1-S2, no rub or gallop Abdomen is soft nontender nondistended positive bowel sounds no hepatosple nomegaly Extremities no edema Neuro alert and orientated to 3 - Labs CBC & Chem 7: 11/13/21 06:39 11/12/21 05:40 Labs: Abnormal Lab Results - Last 24 Hours (Table) 11/12/21 11/12/21 11/12/21 Range/Units 08:14 12:35 17:44 RBC (3.80-5.40) m/uL Hgb (11.4-16.0) gm/dL Hct (34.0-46.0) % MCHC (31.0-37.0) g/dL POC Glucose (mg/dL) 120 H 149 H (75-99) mg/dL Crossmatch See Detail 11/13/21 11/13/21 11/13/21 Range/Units 05:08 06:39 11:21 RBC 2.64 L (3.80-5.40) m/uL Hgb 7.9 L (11.4-16.0) gm/dL Hct 26.1 L (34.0-46.0) % MCHC 30.3 L (31.0-37.0) g/dL POC Glucose (mg/dL) 144 H 106 H (75-99) mg/dL Crossmatch Microbiology - Last 24 Hours (Table) 11/10/21 18:22 Blood Culture - Preliminary Blood No Growth after 48 hours 11/10/21 18:22 Blood Culture - Preliminary Blood No Growth after 48 hours 11/09/21 14:20 Blood Culture Gram Stain - Final Blood Blood Culture - Final Staphylococcus epidermidis 11/12/21 02:20 Urine Culture - Preliminary Urine,Voided Assessment and Plan Assessment: 1. Fever secondary to urinary tract infection with sepsis 2. Positive blood culture. Possible contamination per infectious disease 3. Recent prolonged hospitalization for CHF and pneumonia 4. Recent abdominal hematoma secondary to heparin drip 5. History of Acute kidney injury 6. History of CVA 7. History of diabetes mellitus type 2 8. History of rheumatoid arthritis 9. Essential hypertension 10. Lower extremity DVTs. Hematology and vascular surgery consulted. Tentative plans for IVC filter placement. Patient maintained on IV antibiotics Repeat blood cultures ordered Infectious the service is consulted Repeat labs ordered PT OT and social work job titles consulted
--- NOTE | 2021-11-13 12:49 | P.PN ---
Progress Note - Text Progress Note Date: 11/13/21 Reviewed case, previous hospitalization and labs with Dr. Wang. Did review CT which does show resolving hematoma at this time but, Hgb cont to be labile, she did require a unit of blood yesterday. Anemia may continue to be low at this time due to multiple factors including CKD, sepsis, and recent bleed. Recommendation is for retrievable filter placement and f/u with [facility] 2-3 weeks for Hgb monitoring. Pending erythropoetin to see of pt a candidate for epo supplementation. Will recheck iron studies outpt and supplement as appropriate. Once improvement/stable Hgb achieved plan would be to rechallenge with lovenox with close monitoring for any bleeding/drop in Hgb. Filter could be removed at that time. Pt BLE DVT would be considered provoked (recent hospitalization, decrease in activity/mobility). 3 mo anticoagulation is standard treatment time, unless pt has ongoing risk factors. She will be reassessed prior to discontinuation of anticoagulation or filter removal.
--- NOTE | 2021-11-13 14:30 | P.PN ---
Progress Note - Text Progress Note Date: 11/13/21 This is an addendum on Nancy Celestin, On 11/13/2021 I received a call from Dr. Lui Lizama in regard to patient's case She has bilateral femoral artery DVT and he is not able to proceed with [place] filter placement at this time He stated that he would have to do a jugular vein approach, but he needs to bring in special equipment through the company that provides the filters, he stated that that take a couple of days. He is recommending that patient be put back on Lovenox at this time until he is ready to proceed with [place] filter placement.
[2021-11-13] MEDS: ENOXAPARIN 100 MG/ML SYRINGE SQ SCH ×2 (14:42→20:59)
[2021-11-13 17:04] LABS: Glucose,Whole Blood 177 mg/dL (75-99)
[2021-11-13] MEDS: MONTELUKAST 10 MG TAB PO SCH (20:59)
[2021-11-13] MEDS: FERROUS SULFATE 325 MG TAB PO SCH (21:00)
[2021-11-13 21:14] LABS: Glucose,Whole Blood 86 mg/dL (75-99)
[2021-11-13] MEDS: DAPTOmycin 500 MG in SODIUM CHLORIDE 0.9% 50 ML IVPB SCH (23:30)
--- NOTE | 2021-11-13 23:40 | PN ---
PROGRESS NOTE DATE OF SERVICE: 11/13/2021 REASON FOR FOLLOWUP: VRE urinary tract infection. INTERVAL HISTORY: Patient has been running a low-grade fever. The patient denies having any chest pain. No complaints of shortness of breath or cough. No abdominal pain or diarrhea. PHYSICAL EXAMINATION: Her blood pressure is 104/56, pulse of 73, temperature 99.7. She is 95% on 2 L nasal cannula. General description is an elderly female lying in bed in no distress. Respiratory system: Unlabored breathing, decreased intensity of breath sounds. No wheeze. Heart S1, S2. Regular rate and rhythm. Abdomen: Soft. Mild distention. No guarding or rigidity. LABS: Hemoglobin 7.1, white count 4.3. DIAGNOSTIC IMPRESSION AND PLAN: 1. Patient with VRE urinary tract infection. Continue with daptomycin. Waiting for repeat cultures to finalize. 2. Patient with low grade fever could be related to atelectasis. No evidence of any pneumonia on the CT and the wall hematomas are getting smaller in size. No evidence of any hematoma. MMODL / IJN: [id number] /
[2021-11-14 01:51] LABS: Glucose,Whole Blood 84 mg/dL (75-99)
[2021-11-14] MEDS: LEVOTHYROXINE 25 MCG TAB PO SCH (05:03)
[2021-11-14] MEDS: SODIUM CHLORIDE 0.9% 1,000 ML IV SCH ×2 (05:45→16:11)
[2021-11-14 06:22] LABS: Anisocytosis Slight; Basophils % (A) 1 %; Eosinophils % (A) 1 %; HCT 22.3 % (34.0-46.0); Hypochromasia Marked; Lymphocytes # (A) 0.8 k/uL (1.0-4.8); Lymphocytes % (A) 26 %; MCH 30.7 pg (25.0-35.0); MCHC 31.6 g/dL (31.0-37.0); MCV 97.2 fL (80.0-100.0); Macrocytosis Slight; Monocytes # (A) 0.2 k/uL (0-1.0); Monocytes % (A) 5 %; Neutrophils % (A) 64 %; Platelet Count 278 k/uL (150-450); RBC 2.29 m/uL (3.80-5.40); RDW 16.1 % (11.5-15.5); WBC 3.2 k/uL (3.8-10.6)
[2021-11-14 07:18] LABS: Glucose,Whole Blood 87 mg/dL (75-99)
[2021-11-14] MEDS: INSULIN ASPART (NovoLOG) 100 UNIT/ML VIAL SQ SCH ×4 (07:59→21:19)
[2021-11-14] MEDS: ENOXAPARIN 100 MG/ML SYRINGE SQ SCH ×2 (08:00→21:19)
[2021-11-14] MEDS: PANTOPRAZOLE 40 MG/10 ML VIAL IV SCH (08:03)
[2021-11-14] MEDS: METOPROLOL SUCCINATE (ER) 25 MG TAB.ER.24H PO SCH (08:03)
[2021-11-14] MEDS: amLODIPine 10 MG TAB PO SCH (08:04)
[2021-11-14] MEDS: EZETIMIBE 10 MG TAB PO SCH (08:04)
[2021-11-14] MEDS: CHOLECALCIFEROL 25 MCG (1000 IU) TABLET PO SCH (08:04)
[2021-11-14] MEDS: OXYBUTYNIN 10 MG TAB.ER.24 PO SCH (08:04)
[2021-11-14] MEDS: DOCUSATE 100 MG CAP PO SCH ×2 (08:04→21:18)
[2021-11-14] MEDS: predniSONE 5 MG TAB PO SCH (08:04)
[2021-11-14] MEDS: FUROSEMIDE 40 MG TAB PO SCH (08:04)
[2021-11-14] MEDS: ALBUTEROL NEBULIZED 2.5 MG/3 ML INHALATION PRN ×2 (08:32→15:40)
[2021-11-14 10:08] LABS: African American GFR (CKD) 71.5 (60.0-200.0); Albumin 2.1 g/dL (3.8-4.9); Albumin/Globulin Ratio 0.75 (1.60-3.17); Anion Gap 9.2 mmol/L (10.00-18.00); BUN/Creat Ratio 27.22 Ratio (12.00-20.00); Blood Urea Nitrogen 24.5 mg/dL (9.0-27.0); Calcium 7.3 mg/dL (8.7-10.3); Carbon Dioxide 24.8 mmol/L (20.0-27.5); Globulin 2.8 g/dL (1.6-3.3); Non-African American GFR(CKD) 61.7 (60.0-200.0); Potassium 3.9 mmol/L (3.5-5.5); Total Bilirubin 0.8 mg/dL (0.30-1.20); Total Protein 4.9 g/dL (6.2-8.2)
--- NOTE | 2021-11-14 10:46 | CDI ---
Documentation Clarification Form Date: 11/14/2021 10:23:21 AM From: Jacy Nunes RN CCDS Admit Date: 11/09/2021 03:17:00 PM Patient Name: Nancy Celestin Visit Number: [id number] Discharge Date: ATTENTION: The Clinical Documentation Specialists (CDI) and [facility] Coding Staff appreciate your assistance in clarifying documentation. Please respond to the clarification below the line at the bottom and electronically sign. The CDI & [facility] Coding staff will review the response and follow-up if needed. Please note: Queries are made part of the Legal Health Record. If you have any questions, please contact the author of this message via ITS. Dr. Nenita Shelby Your patient has the documented diagnosis of unspecified CHF 11/11 thru 11/13, medicine progress notes. Additional information regarding the type, acuity of CHF is requested. History/Risk Factors:75-year-old female presents to the ED for cough and abnormal urine exam. Medical History: CHF, HTN and DM. Clinical Indicators: VS/Pulse OX: 11/14 B/P 132/53; HR 119; Temp 103.4F Oral; SpO2 93% room air Echocardiogram Results: 10/14 Left ventricular systolic function is normal with, an EF between 55-60%, right ventricle is mildly enlarged, left atrium is marked dilated, mild mitral regurgitation, Moderate tricuspid regurgitation, Moderate to severe pulmonary hypertension. Chest X Ray: 11/09 Some pleural reaction and atelectasis at the lung bases which is improved on left side and not changed on the right side compared to last exam. Medicine progress note 11/11 thru 11/13 Recent prolonged hospitalization for CHF and pneumonia. Treatment: 11/11 to current Lasix 40mg po daily; 11/10 to current Toprol XL 24mg po daily. In your professional opinion, can you please clarify the acuity and type of CHF if known? [ ] Chronic Diastolic Heart Failure (preserved EF) [ ] Other, please specify [ ] Unable to determine Cardiology consult Acute on chronic CHF. 11/17 (Template Last Revised: December 2020) SARKIS
[2021-11-14] MEDS ORDERED: LIDOCAINE 1% INJ 10MG/ML (20 ML MDV) ONE (10:50)
[2021-11-14] MEDS ORDERED: HYDROmorphone 0.5 MG/0.5 ML SYRINGE IVP ONE (11:00)
[2021-11-14] MEDS: MIDAZOLAM 2 MG/2 ML VIAL IV ONE ×2 (11:00→11:10)
[2021-11-14] MEDS ORDERED: IV FLUID CONTINUATION 1,000 ML IV ONE (11:00)
[2021-11-14] MEDS ORDERED: LIDOCAINE 1% INJ 10MG/ML (20 ML MDV) SQ ONE (11:02)
[2021-11-14] MEDS ORDERED: fentaNYL (PF) 50 MCG/ML 2 ML AMP ONE (11:12)
[2021-11-14] MEDS: fentaNYL (PF) 50 MCG/ML 2 ML AMP IV ONE ×2 (11:14→11:21)
[2021-11-14] MEDS: IOPAMIDOL-250 100ML BTL IV ONE ×2 (11:25→11:32)
[2021-11-14 12:05] LABS: Glucose,Whole Blood 88 mg/dL (75-99)
--- NOTE | 2021-11-14 13:15 | PCN ---
PROCEDURE NOTE PREOPERATIVE DIAGNOSES: Deep vein thrombosis of the right and left lower extremity, large hematoma post heparin abdominal wall. POSTOPERATIVE DIAGNOSES: Deep vein thrombosis of the right and left lower extremity, large hematoma post heparin abdominal wall. PROCEDURE: 1. Inferior vena cavogram. 2. Placement of a [place] filter right jugular approach with completion venogram. SEDATION: Time is 35 minutes. PROCEDURE: The patient brought to the cardiac cath lab technologist. Right side of the neck and chest was prepped and draped in the usual sterile manner. This patient has a DVT of both lower extremities and evaluating both common femoral and popliteal vein. Ultrasound-guided 1% lidocaine was infiltrated with IV sedation. Micropuncture introduced into the right jugular vein. Micropuncture guidewire was passed and 4-Serbian dilator advanced on top of the guidewire. After that, we passed a regular guidewire and we placed a 6-Serbian sheath on the top of the guidewire, flushed with heparin saline and guidewire was advanced, which was parked at the inferior vena cava on the right, mostly at the site of right iliac vein and after that we passed a long sheath on the top of the guidewire which was parked below the renal vein. Vena cavogram was performed and both renal veins were visualized and then we removed the guidewire and through the sheath we introduced a [place] filter which was deployed below the renal vein and we did vena cavogram post deployment and it was in good position below the renal vein. The sheath was removed. Pressure was held. Patient tolerated the procedure well. MMODL / IJN: [id number] /
[2021-11-14 14:49] LABS: Protein, Total 5.2 g/dL (6.2-8.2)
[2021-11-14 15:03] LABS: Immunoglobulin M 54.1 mg/dL (40.0-280.0)
--- NOTE | 2021-11-14 15:48 | P.PN ---
Subjective Progress Note Date: 11/14/21 Principal diagnosis: DVT, Anemia Patient seen and examined this am, with Dr. Wang. at bedside, reviewed plan for Filter, AC therapy and follow-up Objective - Vital Signs Vital signs: Vital Signs Temp 100.3 F H 11/14/21 04:35 Pulse 92 11/14/21 08:32 Resp 20 11/14/21 04:35 BP 116/66 11/14/21 08:07 Pulse Ox 100 11/14/21 04:35 Intake & Output 11/13/21 11/14/21 11/14/21 18:59 06:59 18:59 Intake Total 900 400 Output Total 1600 Balance -700 400 Intake: Intake, IV Titration 900 Amount Sodium Chloride 0.9% 1, 900 000 ml @ 75 mls/hr IV . [id number] [facility] Rx#:[id number] Oral 400 Output: Urine 1600 Other: Voiding Method Indwelling Catheter Indwelling Catheter # Voids 600 # Bowel Movements 1 - Exam Alert NAD Neck Supple Lungs: CTA HR RR Abdomen Obese Ext Edema Calm - Labs CBC & Chem 7: 11/14/21 05:21 11/14/21 05:21 Labs: Abnormal Lab Results - Last 24 Hours (Table) 11/13/21 11/13/21 11/14/21 Range/Units 11:21 17:02 05:21 WBC 3.2 L (3.8-10.6) k/uL RBC 2.29 L (3.80-5.40) m/uL Hgb 7.0 L (11.4-16.0) gm/dL Hct 22.3 L (34.0-46.0) % RDW 16.1 H (11.5-15.5) % Lymphocytes # 0.8 L (1.0-4.8) k/uL POC Glucose (mg/dL) 106 H 177 H (75-99) mg/dL Microbiology - Last 24 Hours (Table) 11/10/21 18:22 Blood Culture - Preliminary Blood No Growth after 72 hours 11/10/21 18:22 Blood Culture - Preliminary Blood No Growth after 72 hours 11/12/21 02:20 Urine Culture - Final Urine,Voided Assessment and Plan (1) Anemia Current Visit: Yes Status: Acute Priority: High Code(s): D64.9 - ANEMIA, UNSPECIFIED SNOMED Code(s): 567281751 (2) DVT (deep venous thrombosis) Current Visit: Yes Status: Acute Priority: High Code(s): I82.409 - ACUTE EMBOLISM AND THOMBOS UNSP DEEP VN UNSP LOWER EXTREMITY SNOMED Code(s): 613542912 (3) Urinary tract infection Current Visit: Yes Status: Acute Code(s): N39.0 - URINARY TRACT INFECTION, SITE NOT SPECIFIED SNOMED Code(s): 57803719 (4) Abdominal wall hematoma Current Visit: No Status: Acute Code(s): S30.1XXA - CONTUSION OF ABDOMINAL WALL, INITIAL ENCOUNTER SNOMED Code(s): 832199283 Plan: Plan for IVC Filter and continued monitoring of serial CBC and Abdominal Hemat juan Physician Attest: I have completed the full history and physical and have developed the above impression and plan, agree with dictation, dictated as a scribe.
[2021-11-14 17:14] LABS: Glucose,Whole Blood 143 mg/dL (75-99)
[2021-11-14] MEDS: ACETAMINOPHEN TAB 325 MG TAB PO PRN ×2 (18:03→23:27)
[2021-11-14 19:54] LABS: Glucose,Whole Blood 135 mg/dL (75-99)
[2021-11-14] MEDS: FERROUS SULFATE 325 MG TAB PO SCH (21:18)
[2021-11-14] MEDS: MONTELUKAST 10 MG TAB PO SCH (21:18)
[2021-11-14] MEDS: DAPTOmycin 500 MG in SODIUM CHLORIDE 0.9% 50 ML IVPB SCH (23:27)
--- NOTE | 2021-11-15 00:13 | PN ---
PROGRESS NOTE DATE OF SERVICE: 11/14/2021 REASON FOR FOLLOWUP: VRE urinary tract infection. INTERVAL HISTORY: The patient is afebrile. The patient is breathing comfortably. The patient denies any chest pain. No worsening cough or sputum production. No abdominal pain or diarrhea. PHYSICAL EXAMINATION: Blood pressure 121/56, pulse of 100, temperature 99.3. She is 97% on 2 L nasal cannula. General description is a middle-aged female lying in bed in no distress. Respiratory system: Unlabored breathing, decreased intensity of breath sounds, no wheeze. Heart S1, S2. Regular rate and rhythm. Abdomen soft, no tenderness. LABS: Hemoglobin is 7, white count 3.2, creatinine 0.9. DIAGNOSTIC IMPRESSION AND PLAN: 1. Patient with VRE urinary tract infection. The patient is currently covered with daptomycin, to continue. 2. Patient with a positive Staph epi, likely contaminant. Repeat culture negative. MMODL / IJN: [id number] /
[2021-11-15 03:33] LABS: Folate, Serum 6.6 ng/mL (4.40-31.00)
[2021-11-15] MEDS: LEVOTHYROXINE 25 MCG TAB PO SCH (06:06)
[2021-11-15] MEDS: SODIUM CHLORIDE 0.9% 1,000 ML IV SCH (06:06)
[2021-11-15 06:42] LABS: HCT 22.6 % (34.0-46.0); Hypochromasia Marked; MCH 30.3 pg (25.0-35.0); MCHC 30.4 g/dL (31.0-37.0); MCV 99.9 fL (80.0-100.0); Macrocytosis Slight; Mean Platelet Volume 7.9; Platelet Count 273 k/uL (150-450); RBC 2.26 m/uL (3.80-5.40); RDW 15.9 % (11.5-15.5); WBC 3.6 k/uL (3.8-10.6)
[2021-11-15 07:13] LABS: Glucose,Whole Blood 105 mg/dL (75-99)
[2021-11-15] MEDS: ALBUTEROL NEBULIZED 2.5 MG/3 ML INHALATION PRN (08:02)
[2021-11-15 08:34] LABS: HGB 6.9 gm/dL (11.4-16.0)
[2021-11-15] MEDS: ENOXAPARIN 100 MG/ML SYRINGE SQ SCH (09:06)
[2021-11-15] MEDS: CHOLECALCIFEROL 25 MCG (1000 IU) TABLET PO SCH (09:07)
[2021-11-15] MEDS: predniSONE 5 MG TAB PO SCH (09:07)
[2021-11-15] MEDS: FUROSEMIDE 40 MG TAB PO SCH (09:07)
[2021-11-15] MEDS: EZETIMIBE 10 MG TAB PO SCH (09:07)
[2021-11-15] MEDS: amLODIPine 10 MG TAB PO SCH (09:07)
[2021-11-15] MEDS: OXYBUTYNIN 10 MG TAB.ER.24 PO SCH (09:07)
[2021-11-15] MEDS: PANTOPRAZOLE 40 MG/10 ML VIAL IV SCH (09:07)
[2021-11-15] MEDS: DOCUSATE 100 MG CAP PO SCH ×2 (09:07→21:37)
[2021-11-15] MEDS: METOPROLOL SUCCINATE (ER) 25 MG TAB.ER.24H PO SCH (09:07)
[2021-11-15] MEDS: INSULIN ASPART (NovoLOG) 100 UNIT/ML VIAL SQ SCH ×4 (09:08→21:37)
[2021-11-15 09:43] LABS: African American GFR (CKD) 62.9 (60.0-200.0); Albumin 1.9 g/dL (3.8-4.9); Albumin/Globulin Ratio 0.68 (1.60-3.17); Anion Gap 10.7 mmol/L (10.00-18.00); BUN/Creat Ratio 25.9 Ratio (12.00-20.00); Blood Urea Nitrogen 25.9 mg/dL (9.0-27.0); Calcium 7.1 mg/dL (8.7-10.3); Carbon Dioxide 21.3 mmol/L (20.0-27.5); Globulin 2.8 g/dL (1.6-3.3); Non-African American GFR(CKD) 54.3 (60.0-200.0); Potassium 4.1 mmol/L (3.5-5.5); Total Bilirubin 0.8 mg/dL (0.30-1.20); Total Protein 4.7 g/dL (6.2-8.2)
--- NOTE | 2021-11-15 09:58 | P.PN ---
Subjective Progress Note Date: 11/14/21 I am starting care for this patient on 11/11/2020, Dr Muhammad was covering for me This is an 75-year-old female patient who initially presented to the ER with concerns of fever from [facility] facility. Patient was positive for urinary tract infection. COVID-19 was negative. Patient had recent prolonged hospitalization for acute CHF Exacerbation and right lower lobe pneumonia. During that hospitalization patient was maintained on heparin drip for possible non-ST elevated CA and developed secondary abdominal wall hematoma. Patient to cooperate 2 units are PRBCs. Patient also had secondary acute kidney injury and urinary retention. Urine culture positive for group D enterococcus and blood culture positive for staphylococcus epidermis. Patient has been started on IV antibiotics. Infectious disease services were consulted. On 11/11/2021 patient's alert and oriented 3 resting comfortably in bed. Patient remains on IV antibiotics. Patient still having elevated temps. At this time patient denies chest pain or shortness of breath. Diarrhea. Patient denies any urinary burning or frequency On 11/12/2021 patient was seen and examined on the medical floor she is alert and oriented 3 in no apparent distress she had elevated d-dimer lower extremity Doppler revealed bilateral lower extremity DVT she was started on full therapeutic dose of Lovenox this morning her hemoglobin was down to 6.8 she received 1 unit of red blood cell transfusion otherwise she continues to be on IV antibiotics she denies any complaints at this time On 11/13/2009 to patient's alert and oriented 3. She will globin improving to 7.9 status post 1 unit of PRBCs. Definitive plans for IVC filter. Hematology and vascular surgery following. Patient remains on IV antibiotics. At that t verena patient denies chest pain.. Patient denies shortness breath. Patient denies nausea vomiting or diarrhea. Patient denies any urinary burning or frequency On . Patient's alert and oriented 3. Patient to undergo IVC filter today. Objective - Vital Signs Vital signs: Vital Signs Temp 98.8 F 11/14/21 11:55 Pulse 99 11/14/21 15:49 Resp 20 11/14/21 11:55 BP 138/66 11/14/21 11:55 Pulse Ox 96 11/14/21 11:55 Intake & Output 11/13/21 11/14/21 11/14/21 18:59 06:59 18:59 Intake Total 900 400 150 Output Total 1600 1900 Balance -700 400 -1750 Weight 108.862 kg Intake: IV 150 Intake, IV Titration 900 Amount Sodium Chloride 0.9% 1, 900 000 ml @ 75 mls/hr IV . [id number] [facility] Rx#:[id number] Oral 400 Output: Urine 1600 1900 Other: Voiding Method Indwelling Catheter Indwelling Catheter Indwelling Catheter # Voids 600 # Bowel Movements 1 - Exam Head normocephalic Neck supple Lungs clear to auscultation bilaterally no wheezing or crackles Heart regular rate and rhythm S1-S2, no rub or gallop Abdomen is soft nontender nondistended positive bowel sounds no hepato splenomegaly Extremities no edema Neuro alert and orientated to 3 - Labs CBC & Chem 7: 11/15/21 06:16 11/15/21 06:16 Labs: Abnormal Lab Results - Last 24 Hours (Table) 11/12/21 11/13/21 11/14/21 Range/Units 05:40 06:50 05:21 WBC 3.2 L (3.8-10.6) k/uL RBC 2.29 L (3.80-5.40) m/uL Hgb 7.0 L (11.4-16.0) gm/dL Hct 22.3 L (34.0-46.0) % RDW 16.1 H (11.5-15.5) % Lymphocytes # 0.8 L (1.0-4.8) k/uL Retic Count (0.5-2.0) % Anion Gap (10.00-18.00) mmol/L BUN/Creatinine Ratio (12.00-20.00) Ratio POC Glucose (mg/dL) (75-99) mg/dL Calcium (8.7-10.3) mg/dL AST (13-35) U/L Total Protein (6.2-8.2) g/dL Total Protein (PEP) 5.2 L (6.2-8.2) g/dL Albumin (3.8-4.9) g/dL Albumin/Globulin Ratio (1.60-3.17) g/dL IgG 1640.0 H (700.0-1600.0) mg/dL 11/14/21 11/14/21 11/14/21 Range/Units 05:21 05:21 17:11 WBC (3.8-10.6) k/uL RBC (3.80-5.40) m/uL Hgb (11.4-16.0) gm/dL Hct (34.0-46.0) % RDW (11.5-15.5) % Lymphocytes # (1.0-4.8) k/uL Retic Count 5.0 H (0.5-2.0) % Anion Gap 9.20 L (10.00-18.00) mmol/L BUN/Creatinine Ratio 27.22 H (12.00-20.00) Ratio POC Glucose (mg/dL) 143 H (75-99) mg/dL Calcium 7.3 L (8.7-10.3) mg/dL AST 38 H (13-35) U/L Total Protein 4.9 L (6.2-8.2) g/dL Total Protein (PEP) (6.2-8.2) g/dL Albumin 2.1 L (3.8-4.9) g/dL Albumin/Globulin Ratio 0.75 L (1.60-3.17) g/dL IgG (700.0-1600.0) mg/dL Microbiology - Last 24 Hours (Table) 11/10/21 18:22 Blood Culture - Preliminary Blood No Growth after 72 hours 11/10/21 18:22 Blood Culture - Preliminary Blood No Growth after 72 hours Assessment and Plan Assessment: 1. Fever secondary to urinary tract infection with sepsis 2. Positive blood culture. Possible contamination per infectious disease 3. Recent prolonged hospitalization for CHF and pneumonia 4. Recent abdominal hematoma secondary to heparin drip 5. History of Acute kidney injury 6. History of CVA 7. History of diabetes mellitus type 2 8. History of rheumatoid arthritis 9. Essential hypertension 10. Lower extremity DVTs. Hematology and vascular surgery consulted. Tentative plans for IVC filter placement. Patient maintained on IV antibiotics Repeat blood cultures ordered Infectious the service is consulted Repeat labs ordered PT OT and community mental health social worker consulted
[2021-11-15] MEDS ORDERED: MORPHINE SULFATE 2 MG/ML SYRINGE IVP PRN (09:59)
--- NOTE | 2021-11-15 10:00 | P.PN ---
Subjective Progress Note Date: 11/15/21 I am starting care for this patient on 11/11/2020, Dr Muhammad was covering for me This is an 75-year-old female patient who initially presented to the ER with concerns of fever from [facility] facility. Patient was positive for urinary tract infection. COVID-19 was negative. Patient had recent prolonged hospitalization for acute CHF Exacerbation and right lower lobe pneumonia. During that hospitalization patient was maintained on heparin drip for possible non-ST elevated AL and developed secondary abdominal wall hematoma. Patient to cooperate 2 units are PRBCs. Patient also had secondary acute kidney injury and urinary retention. Urine culture positive for group D enterococcus and blood culture positive for staphylococcus epidermis. Patient has been started on IV antibiotics. Infectious disease services were consulted. On 11/11/2021 patient's alert and oriented 3 resting comfortably in bed. Patient remains on IV antibiotics. Patient still having elevated temps. At this time patient denies chest pain or shortness of breath. Diarrhea. Patient denies any urinary burning or frequency On 11/12/2021 patient was seen and examined on the medical floor she is alert and oriented 3 in no apparent distress she had elevated d-dimer lower extremity Doppler revealed bilateral lower extremity DVT she was started on full therapeutic dose of Lovenox this morning her hemoglobin was down to 6.8 she received 1 unit of red blood cell transfusion otherwise she continues to be on IV antibiotics she denies any complaints at this time On 11/13/2009 to patient's alert and oriented 3. She will globin improving to 7.9 status post 1 unit of PRBCs. Definitive plans for IVC filter. Hematology and vascular surgery following. Patient remains on IV antibiotics. At that t verena patient denies chest pain.. Patient denies shortness breath. Patient denies nausea vomiting or diarrhea. Patient denies any urinary burning or frequency On . Patient's alert and oriented 3. Patient to undergo IVC filter today. On 11/15/2020 status post IVC filter. Patient is currently sitting up in chair. Patient alert and oriented 3. Patient remains on subcu Lovenox 100 every 12 hours. hgb 6.9. 1 unit PRBCs have been ordered. Patient remains on IV daptomycin. Patient complaining of hip pain which apparently is chronic for her order additional pain medication. Patient denies chest pain or shortness breath. Patient. Patient denies any urinary burning or frequency Objective - Vital Signs Vital signs: Vital Signs Temp 98.6 F 11/15/21 05:00 Pulse 98 11/15/21 09:08 Resp 18 11/15/21 05:00 BP 126/59 11/15/21 09:08 Pulse Ox 92 L 11/15/21 05:00 Intake & Output 11/14/21 11/15/21 11/15/21 18:59 06:59 18:59 Intake Total 150 Output Total 1900 550 Balance -1750 -550 Weight 108.862 kg Intake: IV 150 Output: Urine 1900 550 Other: Voiding Method Indwelling Catheter Indwelling Catheter # Voids 0 # Bowel Movements 0 - Exam Head normocephalic Neck supple Lungs clear to auscultation bilaterally no wheezing or crackles Heart regular rate and rhythm S1-S2, no rub or gallop Abdomen is soft nontender nondistended positive bowel sounds no hepatosplenomegaly Extremities no edema Neuro alert and orientated to 3 - Labs CBC & Chem 7: 11/15/21 06:16 11/15/21 06:16 Labs: Abnormal Lab Results - Last 24 Hours (Table) 11/12/21 11/13/21 11/14/21 Range/Units 05:40 06:50 05:21 WBC (3.8-10.6) k/uL RBC (3.80-5.40) m/uL Hgb (11.4-16.0) gm/dL Hct (34.0-46.0) % MCHC (31.0-37.0) g/dL RDW (11.5-15.5) % Sodium (135-145) mmol/L Anion Gap 9.20 L (10.00-18.00) mmol/L Est GFR (CKD-EPI)NonAf (60.0-200.0) BUN/Creatinine Ratio 27.22 H (12.00-20.00) Ratio POC Glucose (mg/dL) (75-99) mg/dL Calcium 7.3 L (8.7-10.3) mg/dL AST 38 H (13-35) U/L Lactate Dehydrogenase (120-246) U/L Total Protein 4.9 L (6.2-8.2) g/dL Total Protein (PEP) 5.2 L (6.2-8.2) g/dL Albumin 2.1 L (3.8-4.9) g/dL Albumin/Globulin Ratio 0.75 L (1.60-3.17) g/dL Vitamin B12 (200.0-944.0) pg/mL IgG 1640.0 H (700.0-1600.0) mg/dL Free Sterling LC, Quant 11.80 H (0.33-1.94) mg/dL Free Lambda LC, Quant 6.06 H (0.57-2.63) mg/dL 11/14/21 11/14/21 11/14/21 Range/Units 06:50 17:11 19:53 WBC (3.8-10.6) k/uL RBC (3.80-5.40) m/uL Hgb (11.4-16.0) gm/dL Hct (34.0-46.0) % MCHC (31.0-37.0) g/dL RDW (11.5-15.5) % Sodium (135-145) mmol/L Anion Gap (10.00-18.00) mmol/L Est GFR (CKD-EPI)NonAf (60.0-200.0) BUN/Creatinine Ratio (12.00-20.00) Ratio POC Glucose (mg/dL) 143 H 135 H (75-99) mg/dL Calcium (8.7-10.3) mg/dL AST (13-35) U/L Lactate Dehydrogenase 488 H (120-246) U/L Total Protein (6.2-8.2) g/dL Total Protein (PEP) (6.2-8.2) g/dL Albumin (3.8-4.9) g/dL Albumin/Globulin Ratio (1.60-3.17) g/dL Vitamin B12 1117.0 H (200.0-944.0) pg/mL IgG (700.0-1600.0) mg/dL Free Sterling LC, Quant (0.33-1.94) mg/dL Free Lambda LC, Quant (0.57-2.63) mg/dL 11/15/21 11/15/21 11/15/21 Range/Units 06:16 06:16 07:11 WBC 3.6 L (3.8-10.6) k/uL RBC 2.26 L (3.80-5.40) m/uL Hgb 6.9 L* (11.4-16.0) gm/dL Hct 22.6 L (34.0-46.0) % MCHC 30.4 L (31.0-37.0) g/dL RDW 15.9 H (11.5-15.5) % Sodium 134 L (135-145) mmol/L Anion Gap (10.00-18.00) mmol/L Est GFR (CKD-EPI)NonAf 54.3 L (60.0-200.0) BUN/Creatinine Ratio 25.90 H (12.00-20.00) Ratio POC Glucose (mg/dL) 105 H (75-99) mg/dL Calcium 7.1 L (8.7-10.3) mg/dL AST 39 H (13-35) U/L Lactate Dehydrogenase (120-246) U/L Total Protein 4.7 L (6.2-8.2) g/dL Total Protein (PEP) (6.2-8.2) g/dL Albumin 1.9 L (3.8-4.9) g/dL Albumin/Globulin Ratio 0.68 L (1.60-3.17) g/dL Vitamin B12 (200.0-944.0) pg/mL IgG (700.0-1600.0) mg/dL Free Sterling LC, Quant (0.33-1.94) mg/dL Free Lambda LC, Quant (0.57-2.63) mg/dL Microbiology - Last 24 Hours (Table) 11/10/21 18:22 Blood Culture - Preliminary Blood No Growth after 96 hours 11/10/21 18:22 Blood Culture - Preliminary Blood No Growth after 96 hours Assessment and Plan Assessment: 1. Fever secondary to urinary tract infection with sepsis 2. Positive blood culture. Possible contamination per infectious disease 3. Recent prolonged hospitalization for CHF and pneumonia 4. Recent abdominal hematoma secondary to heparin drip 5. History of Acute kidney injury 6. History of CVA 7. History of diabetes mellitus type 2 8. History of rheumatoid arthritis 9. Essential hypertension 10. Lower extremity DVTs. Status post IVC filter placement 11/14/2021. Patient maintained on IV antibiotics Repeat blood cultures ordered Infectious the service is consulted Repeat labs ordered 1 unit PRBCs ordered for 11/15/2021 PT OT and social work associate consulted
[2021-11-15 10:56] LABS: Band Neutrophils % 2 %; Eosinophils # (M) 0.07 k/uL (0-0.7); Lymphocytes # (M) 1.26 k/uL (1.0-4.8); Metamyelocytes # (M) 0.04 k/uL (0); Metamyelocytes % 1 %; Monocytes # (M) 0.36 k/uL (0-1.0); Neutrophils % (M) 52 %; Nucleated Red Blood Cells 0 /100 WBC (0-0); Total Cells Counted 200
[2021-11-15] MEDS: ALBUTEROL NEBULIZED 2.5 MG/3 ML INHALATION SCH ×3 (11:44→19:39)
[2021-11-15 12:15] LABS: Glucose,Whole Blood 157 mg/dL (75-99)
[2021-11-15 17:38] LABS: Glucose,Whole Blood 225 mg/dL (75-99)
--- NOTE | 2021-11-15 19:28 | P.PN ---
Subjective Progress Note Date: 11/15/21 Principal diagnosis: DVT, Anemia Hemoglobin 6.9, PRBC ordered today. She is status post IVC and with drop in hemoglobin recommended to stop AC therapy at this time. Objective - Vital Signs Vital signs: Vital Signs Temp 99.1 F 11/15/21 12:18 Pulse 101 H 11/15/21 12:18 Resp 16 11/15/21 12:18 BP 128/60 11/15/21 12:18 Pulse Ox 100 11/15/21 12:08 Intake & Output 11/14/21 11/15/21 11/15/21 18:59 06:59 18:59 Intake Total 150 0 Output Total 1900 550 Balance -1750 -550 0 Weight 108.862 kg Intake: IV 150 Blood Product 0 Rc As-1 Unit 0 [id number] Output: Urine 1900 550 Other: Voiding Method Indwelling Catheter Indwelling Catheter Indwelling Catheter # Voids 0 # Bowel Movements 0 - Exam Alert NAD Neck Supple Lungs: CTA HR RR Abdomen Obese Ext Edema Calm - Labs CBC & Chem 7: 11/15/21 06:16 11/15/21 06:16 Labs: Abnormal Lab Results - Last 24 Hours (Table) 11/12/21 11/13/21 11/14/21 Range/Units 05:40 06:50 06:50 WBC (3.8-10.6) k/uL RBC (3.80-5.40) m/uL Hgb (11.4-16.0) gm/dL Hct (34.0-46.0) % MCHC (31.0-37.0) g/dL RDW (11.5-15.5) % Metamyelocytes # (Man) (0) k/uL Sodium (135-145) mmol/L Est GFR (CKD-EPI)NonAf (60.0-200.0) BUN/Creatinine Ratio (12.00-20.00) Ratio POC Glucose (mg/dL) (75-99) mg/dL Calcium (8.7-10.3) mg/dL AST (13-35) U/L Lactate Dehydrogenase 488 H (120-246) U/L Total Protein (6.2-8.2) g/dL Total Protein (PEP) 5.2 L (6.2-8.2) g/dL Albumin (3.8-4.9) g/dL Albumin/Globulin Ratio (1.60-3.17) g/dL Vitamin B12 1117.0 H (200.0-944.0) pg/mL IgG 1640.0 H (700.0-1600.0) mg/dL Free [place] LC, Quant 11.80 H (0.33-1.94) mg/dL Free [place]ambda LC, Quant 6.06 H (0.57-2.63) mg/dL Crossmatch 11/14/21 11/14/21 11/15/21 Range/Units 17:11 19:53 06:16 WBC 3.6 L (3.8-10.6) k/uL RBC 2.26 L (3.80-5.40) m/uL Hgb 6.9 L* (11.4-16.0) gm/dL Hct 22.6 L (34.0-46.0) % MCHC 30.4 L (31.0-37.0) g/dL RDW 15.9 H (11.5-15.5) % Metamyelocytes # (Man) 0.04 H (0) k/uL Sodium (135-145) mmol/L Est GFR (CKD-EPI)NonAf (60.0-200.0) BUN/Creatinine Ratio (12.00-20.00) Ratio POC Glucose (mg/dL) 143 H 135 H (75-99) mg/dL Calcium (8.7-10.3) mg/dL AST (13-35) U/L Lactate Dehydrogenase (120-246) U/L Total Protein (6.2-8.2) g/dL Total Protein (PEP) (6.2-8.2) g/dL Albumin (3.8-4.9) g/dL Albumin/Globulin Ratio (1.60-3.17) g/dL Vitamin B12 (200.0-944.0) pg/mL IgG (700.0-1600.0) mg/dL Free [place] LC, Quant (0.33-1.94) mg/dL Free Lambda LC, Quant (0.57-2.63) mg/dL Crossmatch 11/15/21 11/15/21 11/15/21 Range/Units 06:16 07:11 09:56 WBC (3.8-10.6) k/uL RBC (3.80-5.40) m/uL Hgb (11.4-16.0) gm/dL Hct (34.0-46.0) % MCHC (31.0-37.0) g/dL RDW (11.5-15.5) % Metamyelocytes # (Man) (0) k/uL Sodium 134 L (135-145) mmol/L Est GFR (CKD-EPI)NonAf 54.3 L (60.0-200.0) BUN/Creatinine Ratio 25.90 H (12.00-20.00) Ratio POC Glucose (mg/dL) 105 H (75-99) mg/dL Calcium 7.1 L (8.7-10.3) mg/dL AST 39 H (13-35) U/L Lactate Dehydrogenase (120-246) U/L Total Protein 4.7 L (6.2-8.2) g/dL Total Protein (PEP) (6.2-8.2) g/dL Albumin 1.9 L (3.8-4.9) g/dL Albumin/Globulin Ratio 0.68 L (1.60-3.17) g/dL Vitamin B12 (200.0-944.0) pg/mL IgG (700.0-1600.0) mg/dL Free [place] LC, Quant (0.33-1.94) mg/dL Free [place]ambda LC, Quant (0.57-2.63) mg/dL Crossmatch See Detail 11/15/21 Range/Units 12:13 WBC (3.8-10.6) k/uL RBC (3.80-5.40) m/uL Hgb (11.4-16.0) gm/dL Hct (34.0-46.0) % MCHC (31.0-37.0) g/dL RDW (11.5-15.5) % Metamyelocytes # (Man) (0) k/uL Sodium (135-145) mmol/L Est GFR (CKD-EPI)NonAf (60.0-200.0) BUN/Creatinine Ratio (12.00-20.00) Ratio POC Glucose (mg/dL) 157 H (75-99) mg/dL Calcium (8.7-10.3) mg/dL AST (13-35) U/L Lactate Dehydrogenase (120-246) U/L Total Protein (6.2-8.2) g/dL Total Protein (PEP) (6.2-8.2) g/dL Albumin (3.8-4.9) g/dL Albumin/Globulin Ratio (1.60-3.17) g/dL Vitamin B12 (200.0-944.0) pg/mL IgG (700.0-1600.0) mg/dL Free [place] LC, Quant (0.33-1.94) mg/dL Free Lambda LC, Quant (0.57-2.63) mg/dL Crossmatch Microbiology - Last 24 Hours (Table) 11/10/21 18:22 Blood Culture - Preliminary Blood No Growth after 96 hours 11/10/21 18:22 Blood Culture - Preliminary Blood No Growth after 96 hours Assessment and Plan (1) Anemia Current Visit: Yes Status: Acute Priority: High Code(s): D64.9 - ANEMIA, UNSPECIFIED SNOMED Code(s): 449726254 (2) DVT (deep venous thrombosis) Current Visit: Yes Status: Acute Priority: High Code(s): I82.409 - ACUTE EMBOLISM AND THOMBOS UNSP DEEP VN UNSP LOWER EXTREMITY SNOMED Code(s): 442662262 (3) Urinary tract infection Current Visit: Yes Status: Acute Code(s): N39.0 - URINARY TRACT INFECTION, SITE NOT SPECIFIED SNOMED Code(s): 05742508 (4) Abdominal wall hematoma Current Visit: No Status: Acute Code(s): S30.1XXA - CONTUSION OF ABDOMINAL WALL, INITIAL ENCOUNTER SNOMED Code(s): 262935518 Plan: Plan for IVC Filter and continued monitoring of serial CBC and Abdominal Hematoma Hold AC therapy at this time. Still awaiting results of erythropoetin for possible epogen Prophylaxis Lovenox ok at this time Dr. Wang has discussed with primary team Physician Attest: I have completed the full history and physical and have developed the above impression and plan, agree with dictation, dictated as a s cribe.
--- NOTE | 2021-11-15 20:43 | PN ---
PROGRESS NOTE DATE OF SERVICE: 11/15/2021 REASON FOR FOLLOWUP: VRE urinary tract infection. INTERVAL HISTORY: The patient is afebrile. The patient is breathing slightly comfortably. The patient denies having any chest pain or shortness of breath. The patient did have a cough with occasional sputum production. No abdominal pain or diarrhea. PHYSICAL EXAMINATION: Her blood pressure is 125/76 with a pulse of 92, temperature 99.1. She is 98% on room air. General description is an elderly female lying in bed in no distress. Respiratory system: Unlabored breathing, decreased intensity of breath sounds. No wheeze. Heart S1, S2. Regular rate and rhythm. Abdomen soft, no tenderness. LABS: Hemoglobin is 6.9, white count 3.6, creatinine 1.0. DIAGNOSTIC IMPRESSION AND PLAN: Patient with VRE urinary tract infection. Patient is covered with daptomycin. White count normalized. Repeat culture negative. Hopefully will not need antibiotic on discharge. Continue with supportive care. MMODL / IJN: [id number] /
[2021-11-15 20:44] LABS: Glucose,Whole Blood 148 mg/dL (75-99)
[2021-11-15] MEDS: MONTELUKAST 10 MG TAB PO SCH (21:37)
[2021-11-15] MEDS: FERROUS SULFATE 325 MG TAB PO SCH (21:37)
[2021-11-15 23:35] LABS: Glucose,Whole Blood 109 mg/dL (75-99)
[2021-11-16] MEDS: DAPTOmycin 500 MG in SODIUM CHLORIDE 0.9% 50 ML IVPB SCH ×2 (00:04→23:10)
[2021-11-16] MEDS: SODIUM CHLORIDE 0.9% 1,000 ML IV SCH ×2 (00:08→15:06)
[2021-11-16] MEDS: ALBUTEROL NEBULIZED 2.5 MG/3 ML INHALATION SCH ×7 (00:30→23:25)
[2021-11-16] MEDS: LEVOTHYROXINE 25 MCG TAB PO SCH (05:38)
[2021-11-16 07:45] LABS: Glucose,Whole Blood 121 mg/dL (75-99)
[2021-11-16] MEDS: INSULIN ASPART (NovoLOG) 100 UNIT/ML VIAL SQ SCH ×4 (08:48→21:28)
[2021-11-16] MEDS: FUROSEMIDE 40 MG TAB PO SCH (08:58)
[2021-11-16] MEDS: amLODIPine 10 MG TAB PO SCH (08:58)
[2021-11-16] MEDS: METOPROLOL SUCCINATE (ER) 25 MG TAB.ER.24H PO SCH (08:58)
[2021-11-16] MEDS: CHOLECALCIFEROL 25 MCG (1000 IU) TABLET PO SCH (08:58)
[2021-11-16] MEDS: DOCUSATE 100 MG CAP PO SCH ×2 (08:58→21:29)
[2021-11-16] MEDS: EZETIMIBE 10 MG TAB PO SCH (08:58)
[2021-11-16] MEDS: OXYBUTYNIN 10 MG TAB.ER.24 PO SCH (08:59)
[2021-11-16] MEDS: PANTOPRAZOLE 40 MG/10 ML VIAL IV SCH (08:59)
[2021-11-16] MEDS: predniSONE 5 MG TAB PO SCH (09:00)
[2021-11-16 10:29] LABS: Anisocytosis Slight; Basophils % (A) 1 %; Eosinophils % (A) 1 %; HGB 8.3 gm/dL (11.4-16.0); Hypochromasia Marked; Lymphocytes # (A) 0.9 k/uL (1.0-4.8); Lymphocytes % (A) 25 %; MCH 30.8 pg (25.0-35.0); MCHC 30.7 g/dL (31.0-37.0); MCV 100.5 fL (80.0-100.0); Macrocytosis Slight; Monocytes # (A) 0.2 k/uL (0-1.0); Monocytes % (A) 7 %; Neutrophils # (A) 2.2 k/uL (1.3-7.7); Neutrophils % (A) 63 %; Platelet Count 298 k/uL (150-450); RBC 2.69 m/uL (3.80-5.40); RDW 16.1 % (11.5-15.5); WBC 3.5 k/uL (3.8-10.6)
[2021-11-16 10:56] LABS: African American GFR (CKD) 74 (>60 ml/min/1.73 sqM); Albumin 2.2 g/dL (3.5-5.0); Albumin/Globulin Ratio 0.7; Anion Gap 6 mmol/L; Blood Urea Nitrogen 26 mg/dL (7-17); Carbon Dioxide 25 mmol/L (22-30); Chloride 104 mmol/L (98-107); Globulin 3.3 g/dL; Glucose 122 mg/dL (74-99); Non-African American GFR(CKD) 64 (>60 ml/min/1.73 sqM); Potassium 4.1 mmol/L (3.5-5.1); Sodium 135 mmol/L (137-145); Total Protein 5.5 g/dL (6.3-8.2)
[2021-11-16 10:57] LABS: ALT 22 U/L (4-34); AST 42 U/L (14-36); Alkaline Phosphatase 97 U/L (38-126); Calcium 7.7 mg/dL (8.4-10.2); Total Bilirubin 1.3 mg/dL (0.2-1.3)
[2021-11-16 12:39] LABS: Glucose,Whole Blood 185 mg/dL (75-99)
[2021-11-16] MEDS: ACETAMINOPHEN TAB 325 MG TAB PO PRN (13:36)
[2021-11-16] MEDS ORDERED: ENOXAPARIN 40 MG/0.4 ML SYRINGE SQ STA (15:07)
[2021-11-16] MEDS ORDERED: ALBUTEROL NEBULIZED 2.5 MG/3 ML INHALATION PRN (15:08)
--- NOTE | 2021-11-16 15:21 | P.PN ---
Subjective Progress Note Date: 11/16/21 I am starting care for this patient on 11/11/2020, Dr Muhammad was covering for me This is an 75-year-old female patient who initially presented to the ER with concerns of fever from [facility] facility. Patient was positive for urinary tract infection. COVID-19 was negative. Patient had recent prolonged hospitalization for acute CHF Exacerbation and right lower lobe pneumonia. During that hospitalization patient was maintained on heparin drip for possible non-ST elevated [place] and developed secondary abdominal wall hematoma. Patient to cooperate 2 units are PRBCs. Patient also had secondary acute kidney injury and urinary retention. Urine culture positive for group D enterococcus and blood culture positive for staphylococcus epidermis. Patient has been started on IV antibiotics. Infectious disease services were consulted. On 11/11/2021 patient's alert and oriented 3 resting comfortably in bed. Patient remains on IV antibiotics. Patient still having elevated temps. At this time patient denies chest pain or shortness of breath. Diarrhea. Patient denies any urinary burning or frequency On 11/12/2021 patient was seen and examined on the medical floor she is alert and oriented 3 in no apparent distress she had elevated d-dimer lower extremity Doppler revealed bilateral lower extremity DVT she was started on full therapeutic dose of Lovenox this morning her hemoglobin was down to 6.8 she received 1 unit of red blood cell transfusion otherwise she continues to be on IV antibiotics she denies any complaints at this time On 11/13/2009 to patient's alert and oriented 3. She will globin improving to 7.9 status post 1 unit of PRBCs. Definitive plans for IVC filter. Hematology and vascular surgery following. Patient remains on IV antibiotics. At that t verena patient denies chest pain.. Patient denies shortness breath. Patient denies nausea vomiting or diarrhea. Patient denies any urinary burning or frequency On 11/14/2021. Patient's alert and oriented 3. Patient to undergo IVC filter today. On 11/15/2021 status post IVC filter. Patient is currently sitting up in chair. Patient alert and oriented 3. Patient remains on subcu Lovenox 100 every 12 hours. hgb 6.9. 1 unit PRBCs have been ordered. Patient remains on IV daptomycin. Patient complaining of hip pain which apparently is chronic for her order additional pain medication. Patient denies chest pain or shortness breath. Patient. Patient denies any urinary burning or frequency On 11/16/2021 patient was seen and examined on the medical floor, she is complaining of pain in the right hip area otherwise she denies any complaints there is no fever or chills no headache or dizziness no chest pain no shortness of breath no cough no nausea or vomiting no abdominal pain no diarrhea no blood in the stools no burning with urination no frequency or urgency and no hematuria. Hemoglobin is stable today at 8.3. Per Dr. Wang with recommendation, full dose Lovenox was discontinued yesterday, she will be started on Lovenox 40 mg subcu daily today, will check x-ray of the right hip, patient was given Voltaren gel to the right hip per her request Objective - Vital Signs Vital signs: Vital Signs Temp 98.8 F 11/16/21 04:45 Pulse 108 H 11/16/21 07:51 Resp 24 11/16/21 04:45 BP 122/68 11/16/21 04:45 Pulse Ox 94 L 11/16/21 04:45 Intake & Output 11/15/21 11/16/21 11/16/21 18:59 06:59 18:59 Intake Total 1330 1000 Output Total 1300 1250 Balance 30 -250 Intake: Oral 1020 1000 Blood Product 310 Rc As-1 Unit 310 [id number] Output: Urine 1300 1250 Other: Voiding Method Indwelling Catheter Indwelling Catheter - Exam Head normocephalic Neck supple Lungs clear to auscultation bilaterally no wheezing or crackles Heart regular rate and rhythm S1-S2, no rub or gallop Abdomen is soft nontender nondistended positive bowel sounds no hepatosplenomegaly Extremities no edema Neuro alert and orientated to 3 - Labs CBC & Chem 7: 11/16/21 09:47 11/16/21 09:47 Labs: Abnormal Lab Results - Last 24 Hours (Table) 11/12/21 11/13/21 11/15/21 Range/Units 05:40 06:50 06:16 WBC 3.6 L (3.8-10.6) k/uL RBC 2.26 L (3.80-5.40) m/uL Hgb 6.9 L* (11.4-16.0) gm/dL Hct 22.6 L (34.0-46.0) % MCHC 30.4 L (31.0-37.0) g/dL RDW 15.9 H (11.5-15.5) % Metamyelocytes # (Man) 0.04 H (0) k/uL Sodium (135-145) mmol/L Est GFR (CKD-EPI)NonAf (60.0-200.0) BUN/Creatinine Ratio (12.00-20.00) Ratio POC Glucose (mg/dL) (75-99) mg/dL Calcium (8.7-10.3) mg/dL AST (13-35) U/L Total Protein (6.2-8.2) g/dL Albumin (3.8-4.9) g/dL Albumin (PEP) 2.10 L (3.80-4.90) g/dL Albumin/Globulin Ratio (1.60-3.17) g/dL Ljynl-9-Nvujouswn 0.53 H (0.10-0.40) g/dL Beta Globulins 0.48 L (0.60-1.30) g/dL Methylmalonic Acid 0.46 H (<0.40) umol/L Free [place] LC, Quant 11.80 H (0.33-1.94) mg/dL Free Lambda LC, Quant 6.06 H (0.57-2.63) mg/dL Crossmatch 11/15/21 11/15/21 11/15/21 Range/Units 06:16 09:56 12:13 WBC (3.8-10.6) k/uL RBC (3.80-5.40) m/uL Hgb (11.4-16.0) gm/dL Hct (34.0-46.0) % MCHC (31.0-37.0) g/dL RDW (11.5-15.5) % Metamyelocytes # (Man) (0) k/uL Sodium 134 L (135-145) mmol/L Est GFR (CKD-EPI)NonAf 54.3 L (60.0-200.0) BUN/Creatinine Ratio 25.90 H (12.00-20.00) Ratio POC Glucose (mg/dL) 157 H (75-99) mg/dL Calcium 7.1 L (8.7-10.3) mg/dL AST 39 H (13-35) U/L Total Protein 4.7 L (6.2-8.2) g/dL Albumin 1.9 L (3.8-4.9) g/dL Albumin (PEP) (3.80-4.90) g/dL Albumin/Globulin Ratio 0.68 L (1.60-3.17) g/dL Npntg-1-Ycdmcndju (0.10-0.40) g/dL Beta Globulins (0.60-1.30) g/dL Methylmalonic Acid (<0.40) umol/L Free [place] LC, Quant (0.33-1.94) mg/dL Free Lambda LC, Quant (0.57-2.63) mg/dL Crossmatch See Detail 11/15/21 11/15/21 11/15/21 Range/Units 17:37 20:44 23:34 WBC (3.8-10.6) k/uL RBC (3.80-5.40) m/uL Hgb (11.4-16.0) gm/dL Hct (34.0-46.0) % MCHC (31.0-37.0) g/dL RDW (11.5-15.5) % Metamyelocytes # (Man) (0) k/uL Sodium (135-145) mmol/L Est GFR (CKD-EPI)NonAf (60.0-200.0) BUN/Creatinine Ratio (12.00-20.00) Ratio POC Glucose (mg/dL) 225 H 148 H 109 H (75-99) mg/dL Calcium (8.7-10.3) mg/dL AST (13-35) U/L Total Protein (6.2-8.2) g/dL Albumin (3.8-4.9) g/dL Albumin (PEP) (3.80-4.90) g/dL Albumin/Globulin Ratio (1.60-3.17) g/dL Efyeu-0-Sbutequcg (0.10-0.40) g/dL Beta Globulins (0.60-1.30) g/dL Methylmalonic Acid (<0.40) umol/L Free [place] LC, Quant (0.33-1.94) mg/dL Free Lambda LC, Quant (0.57-2.63) mg/dL Crossmatch 11/16/21 Range/Units 07:41 WBC (3.8-10.6) k/uL RBC (3.80-5.40) m/uL Hgb (11.4-16.0) gm/dL Hct (34.0-46.0) % MCHC (31.0-37.0) g/dL RDW (11.5-15.5) % Metamyelocytes # (Man) (0) k/uL Sodium (135-145) mmol/L Est GFR (CKD-EPI)NonAf (60.0-200.0) BUN/Creatinine Ratio (12.00-20.00) Ratio POC Glucose (mg/dL) 121 H (75-99) mg/dL Calcium (8.7-10.3) mg/dL AST (13-35) U/L Total Protein (6.2-8.2) g/dL Albumin (3.8-4.9) g/dL Albumin (PEP) (3.80-4.90) g/dL Albumin/Globulin Ratio (1.60-3.17) g/dL Jvtjj-0-Icnykkvry (0.10-0.40) g/dL Beta Globulins (0.60-1.30) g/dL Methylmalonic Acid (<0.40) umol/L Free [place] LC, Quant (0.33-1.94) mg/dL Free Lambda LC, Quant (0.57-2.63) mg/dL Crossmatch Microbiology - Last 24 Hours (Table) 11/10/21 18:22 Blood Culture - Preliminary Blood No Growth after 120 hours 11/10/21 18:22 Blood Culture - Preliminary Blood No Growth after 120 hours Assessment and Plan Assessment: 1. Fever secondary to urinary tract infection with sepsis 2. Positive blood culture. Possible contamination per infectious disease 3. Recent prolonged hospitalization for CHF and pneumonia 4. Recent abdominal hematoma secondary to heparin drip 5. History of Acute kidney injury 6. History of CVA 7. History of diabetes mellitus type 2 8. History of rheumatoid arthritis 9. Essential hypertension 10. Lower extremity DVTs. Status post IVC filter placement 11/14/2021. Patient maintained on IV antibiotics Repeat blood cultures ordered Infectious the service is consulted Repeat labs ordered 1 unit PRBCs ordered for 11/15/2021 PT OT and protective services social worker consulted
[2021-11-16] MEDS ORDERED: ALBUTEROL HFA INHALER INHALATION PRN (15:23)
--- NOTE | 2021-11-16 17:00 | XR ---
EXAMINATION TYPE: XR Hip Complete RT DATE OF EXAM: 11/16/2021 COMPARISON: NONE HISTORY: Pain TECHNIQUE: 2 views FINDINGS: There is acetabular spurring. Proximal femur is intact. I see no femoral fracture. There is narrowing of the hip joint space. Sacroiliac joint is intact. IMPRESSION: There is some hip joint osteoarthritis. No fracture seen.
[2021-11-16] MEDS: DICLOFENAC SODIUM GEL 100 GM TUBE TOPICAL SCH ×2 (17:19→21:29)
[2021-11-16 17:40] LABS: Glucose,Whole Blood 196 mg/dL (75-99)
--- NOTE | 2021-11-16 18:50 | PN ---
PROGRESS NOTE DATE OF SERVICE: 11/16/2021 REASON FOR FOLLOWUP: VRE urinary tract infection. INTERVAL HISTORY: The patient is afebrile. The patient is breathing comfortably. The patient denies having any chest pain or shortness of breath. Still has occasional cough. No abdominal pain or diarrhea. PHYSICAL EXAMINATION: Blood pressure 149/77, pulse of 106, temperature 98.9. She is 97% on room air. General description is an elderly female lying in bed in no distress. Respiratory system: Unlabored breathing, decreased intensity of breath sounds. No wheeze. Heart S1, S2. Regular rate and rhythm. Abdomen soft, no tenderness. LABS: Hemoglobin is 8.9, white count 3.5. Creatinine is 0.88. DIAGNOSTIC IMPRESSION AND PLAN: Patient with VRE urinary tract infection, currently on IV daptomycin; to continue while monitoring clinical course closely. Continue supportive care. MMODL / IJN: [id number] /
[2021-11-16 20:14] LABS: Glucose,Whole Blood 231 mg/dL (75-99)
[2021-11-16] MEDS: FERROUS SULFATE 325 MG TAB PO SCH (21:29)
[2021-11-16] MEDS: MONTELUKAST 10 MG TAB PO SCH (21:29)
[2021-11-17] MEDS: ALBUTEROL NEBULIZED 2.5 MG/3 ML INHALATION SCH ×5 (04:17→20:20)
[2021-11-17] MEDS: LEVOTHYROXINE 25 MCG TAB PO SCH (04:48)
[2021-11-17 06:42] LABS: Glucose,Whole Blood 119 mg/dL (75-99)
[2021-11-17] MEDS: METOPROLOL SUCCINATE (ER) 25 MG TAB.ER.24H PO SCH (07:04)
[2021-11-17] MEDS: FUROSEMIDE 40 MG TAB PO SCH (07:04)
[2021-11-17] MEDS: amLODIPine 10 MG TAB PO SCH (07:05)
[2021-11-17 07:21] LABS: Glucose,Whole Blood 141 mg/dL (75-99)
[2021-11-17] MEDS ORDERED: FUROSEMIDE 10 MG/ML 4 ML VIAL IV STA (07:45)
[2021-11-17] MEDS: SODIUM CHLORIDE 0.9% 1,000 ML IV SCH (07:52)
--- NOTE | 2021-11-17 08:04 | XR ---
EXAMINATION TYPE: XR chest 1V portable DATE OF EXAM: 11/17/2021 CLINICAL HISTORY: Difficulty breathing progress study. TECHNIQUE: Single AP portable upright view of the chest is obtained. COMPARISON: Chest x-ray from 8 days earlier and older studies. FINDINGS: Stable cardiomegaly with worsening bilateral multifocal increased opacities greatest in th e lower lungs. Osseous structures are intact. IMPRESSION: Cardiomegaly with worsening bilateral multifocal opacities. Suspect covid-19 infection an d/or infiltrates in current environment. Correlate clinically. Alveolar and interstitial edema relate d to CHF exacerbation would be in differential but felt less likely.
--- NOTE | 2021-11-17 08:20 | P.PN ---
Progress Note - Text Progress Note Date: 11/17/21 Rapid was called on this patient due to severe tachycardia at 150. BP stable, hypoxic at about 92% on 5Liters. She is feeling that she can't breath, having chest tightness. No benito pain, no abdominal pain. Stat trops, BNP, patient denied having any abdominal pain, nausea or vomiting. EKG showing sinus tachycardia with slight ST segment changes in the inferior leads. Chest x-ray showing bilateral lower lobe haziness which could be secondary to congestive heart failure versus pneumonia. Patient will be tested for Covid, probnp, stat trops were sent as well. Case d/w Dr. Shelby and Dr Alcantar, will try IV lasix 40mg now and follow up, patient will be transferred to ICU.. Time for critical care 36 min
[2021-11-17 09:42] LABS: Glucose,Whole Blood 170 mg/dL (75-99)
[2021-11-17 09:56] LABS: Anisocytosis Slight; Basophils % (A) 1 %; Eosinophils % (A) 1 %; HCT 26.1 % (34.0-46.0); HGB 7.9 gm/dL (11.4-16.0); Hypochromasia Marked; Lymphocytes # (A) 1.3 k/uL (1.0-4.8); Lymphocytes % (A) 32 %; MCH 29.8 pg (25.0-35.0); MCHC 30.1 g/dL (31.0-37.0); MCV 98.8 fL (80.0-100.0); Macrocytosis Slight; Monocytes # (A) 0.3 k/uL (0-1.0); Monocytes % (A) 7 %; Neutrophils # (A) 2.3 k/uL (1.3-7.7); Neutrophils % (A) 58 %; Platelet Count 291 k/uL (150-450); RBC 2.64 m/uL (3.80-5.40); RDW 16.1 % (11.5-15.5)
[2021-11-17] MEDS: PANTOPRAZOLE 40 MG/10 ML VIAL IV SCH (09:57)
[2021-11-17] MEDS: DOCUSATE 100 MG CAP PO SCH ×2 (09:57→21:10)
[2021-11-17] MEDS: CHOLECALCIFEROL 25 MCG (1000 IU) TABLET PO SCH (09:57)
[2021-11-17] MEDS: EZETIMIBE 10 MG TAB PO SCH (09:57)
[2021-11-17] MEDS: predniSONE 5 MG TAB PO SCH (09:57)
[2021-11-17] MEDS: INSULIN ASPART (NovoLOG) 100 UNIT/ML VIAL SQ SCH ×4 (09:57→21:11)
[2021-11-17] MEDS: OXYBUTYNIN 10 MG TAB.ER.24 PO SCH (09:57)
[2021-11-17 09:58] LABS: ALT 24 U/L (4-34); AST 41 U/L (14-36); African American GFR (CKD) 82 (>60 ml/min/1.73 sqM); Albumin 2.2 g/dL (3.5-5.0); Albumin/Globulin Ratio 0.6; Alkaline Phosphatase 100 U/L (38-126); Anion Gap 6 mmol/L; Blood Urea Nitrogen 25 mg/dL (7-17); Calcium 7.6 mg/dL (8.4-10.2); Carbon Dioxide 25 mmol/L (22-30); Chloride 105 mmol/L (98-107); Globulin 3.4 g/dL; Glucose 123 mg/dL (74-99); Non-African American GFR(CKD) 72 (>60 ml/min/1.73 sqM); Potassium 4.2 mmol/L (3.5-5.1); Sodium 136 mmol/L (137-145); Total Bilirubin 1.1 mg/dL (0.2-1.3); Total Protein 5.6 g/dL (6.3-8.2)
--- NOTE | 2021-11-17 10:15 | P.PN ---
Subjective Progress Note Date: 11/17/21 I am starting care for this patient on 11/11/2020, Dr Muhammad was covering for me This is an 75-year-old female patient who initially presented to the ER with concerns of fever from [facility] facility. Patient was positive for urinary tract infection. COVID-19 was negative. Patient had recent prolonged hospitalization for acute CHF Exacerbation and right lower lobe pneumonia. During that hospitalization patient was maintained on heparin drip for possible non-ST elevated AL and developed secondary abdominal wall hematoma. Patient to cooperate 2 units are PRBCs. Patient also had secondary acute kidney injury and urinary retention. Urine culture positive for group D enterococcus and blood culture positive for staphylococcus epidermis. Patient has been started on IV antibiotics. Infectious disease services were consulted. On 11/11/2021 patient's alert and oriented 3 resting comfortably in bed. Patient remains on IV antibiotics. Patient still having elevated temps. At this time patient denies chest pain or shortness of breath. Diarrhea. Patient denies any urinary burning or frequency On 11/12/2021 patient was seen and examined on the medical floor she is alert and oriented 3 in no apparent distress she had elevated d-dimer lower extremity Doppler revealed bilateral lower extremity DVT she was started on full therapeutic dose of Lovenox this morning her hemoglobin was down to 6.8 she received 1 unit of red blood cell transfusion otherwise she continues to be on IV antibiotics she denies any complaints at this time On 11/13/2009 to patient's alert and oriented 3. She will globin improving to 7.9 status post 1 unit of PRBCs. Definitive plans for IVC filter. Hematology and vascular surgery following. Patient remains on IV antibiotics. At that t verena patient denies chest pain.. Patient denies shortness breath. Patient denies nausea vomiting or diarrhea. Patient denies any urinary burning or frequency On 11/14/2021. Patient's alert and oriented 3. Patient to undergo IVC filter today. On 11/15/2021 status post IVC filter. Patient is currently sitting up in chair. Patient alert and oriented 3. Patient remains on subcu Lovenox 100 every 12 hours. hgb 6.9. 1 unit PRBCs have been ordered. Patient remains on IV daptomycin. Patient complaining of hip pain which apparently is chronic for her order additional pain medication. Patient denies chest pain or shortness breath. Patient. Patient denies any urinary burning or frequency On 11/16/2021 patient was seen and examined on the medical floor, she is complaining of pain in the right hip area otherwise she denies any complaints there is no fever or chills no headache or dizziness no chest pain no shortness of breath no cough no nausea or vomiting no abdominal pain no diarrhea no blood in the stools no burning with urination no frequency or urgency and no hematuria. Hemoglobin is stable today at 8.3. Per Dr. Wang with recommendation, full dose Lovenox was discontinued yesterday, she will be started on Lovenox 40 mg subcu daily today, will check x-ray of the right hip, patient was given Voltaren gel to the right hip per her request On 11/27/2021 patient is alert and oriented 3. Patient had episode of elevated heart rate in the 150s. A team was called. Patient also currently getting treated for pneumonia. At this time will transfer patient to cardiac stepdown unit. Telemetry ordered. Stat labs ordered. Cardiology consult in place. Patient reports improvement. Patient denies chest pain. At this time cardiology, pulmonary, infectious disease and hematology services are following. Objective - Vital Signs Vital signs: Vital Signs Temp 98.3 F 11/17/21 04:21 Pulse 152 H 11/17/21 07:35 Resp 20 11/17/21 04:21 BP 144/74 11/17/21 08:59 Pulse Ox 99 11/17/21 04:21 Intake & Output 11/16/21 11/17/21 11/17/21 18:59 06:59 18:59 Intake Total 1900 Output Total 1000 Balance 1900 -1000 Intake: Intake, IV Titration 900 Amount Sodium Chloride 0.9% 1, 900 000 ml @ 75 mls/hr IV . [id number] [facility] Rx#:[id number] Oral 1000 Output: Urine 1000 Other: Voiding Method Indwelling Catheter Indwelling Catheter # Voids 0 - Exam Head normocephalic Neck supple Lungs clear to auscultation bilaterally no wheezing or crackles Heart regular rate and rhythm S1-S2, no rub or gallop Abdomen is soft nontender nondistended positive bowel sounds no hepatosplenomeg medardo Extremities no edema Neuro alert and orientated to 3 - Labs CBC & Chem 7: 11/17/21 07:32 11/17/21 07:32 Labs: Abnormal Lab Results - Last 24 Hours (Table) 11/16/21 11/16/21 11/16/21 Range/Units 09:47 09:47 12:18 WBC 3.5 L (3.8-10.6) k/uL RBC 2.69 L (3.80-5.40) m/uL Hgb 8.3 L (11.4-16.0) gm/dL Hct 27.0 L (34.0-46.0) % MCV 100.5 H (80.0-100.0) fL MCHC 30.7 L (31.0-37.0) g/dL RDW 16.1 H (11.5-15.5) % Lymphocytes # 0.9 L (1.0-4.8) k/uL D-Dimer (<0.60) mg/L FEU Sodium 135 L (137-145) mmol/L BUN 26 H (7-17) mg/dL Glucose 122 H (74-99) mg/dL POC Glucose (mg/dL) 185 H (75-99) mg/dL Calcium 7.7 L (8.4-10.2) mg/dL AST 42 H (14-36) U/L Troponin I (0.000-0.034) ng/mL Total Protein 5.5 L (6.3-8.2) g/dL Albumin 2.2 L (3.5-5.0) g/dL 11/16/21 11/16/21 11/17/21 Range/Units 17:36 20:13 06:37 WBC (3.8-10.6) k/uL RBC (3.80-5.40) m/uL Hgb (11.4-16.0) gm/dL Hct (34.0-46.0) % MCV (80.0-100.0) fL MCHC (31.0-37.0) g/dL RDW (11.5-15.5) % Lymphocytes # (1.0-4.8) k/uL D-Dimer (<0.60) mg/L FEU Sodium (137-145) mmol/L BUN (7-17) mg/dL Glucose (74-99) mg/dL POC Glucose (mg/dL) 196 H 231 H 119 H (75-99) mg/dL Calcium (8.4-10.2) mg/dL AST (14-36) U/L Troponin I (0.000-0.034) ng/mL Total Protein (6.3-8.2) g/dL Albumin (3.5-5.0) g/dL 11/17/21 11/17/21 11/17/21 Range/Units 07:19 07:32 07:32 WBC (3.8-10.6) k/uL RBC 2.64 L (3.80-5.40) m/uL Hgb 7.9 L (11.4-16.0) gm/dL Hct 26.1 L (34.0-46.0) % MCV (80.0-100.0) fL MCHC 30.1 L (31.0-37.0) g/dL RDW 16.1 H (11.5-15.5) % Lymphocytes # (1.0-4.8) k/uL D-Dimer (<0.60) mg/L FEU Sodium (137-145) mmol/L BUN (7-17) mg/dL Glucose (74-99) mg/dL POC Glucose (mg/dL) 141 H (75-99) mg/dL Calcium (8.4-10.2) mg/dL AST (14-36) U/L Troponin I 0.860 H* (0.000-0.034) ng/mL Total Protein (6.3-8.2) g/dL Albumin (3.5-5.0) g/dL 11/17/21 11/17/21 11/17/21 Range/Units 07:32 07:33 09:41 WBC (3.8-10.6) k/uL RBC (3.80-5.40) m/uL Hgb (11.4-16.0) gm/dL Hct (34.0-46.0) % MCV (80.0-100.0) fL MCHC (31.0-37.0) g/dL RDW (11.5-15.5) % Lymphocytes # (1.0-4.8) k/uL D-Dimer 6.14 H (<0.60) mg/L FEU Sodium 136 L (137-145) mmol/L BUN 25 H (7-17) mg/dL Glucose 123 H (74-99) mg/dL POC Glucose (mg/dL) 170 H (75-99) mg/dL Calcium 7.6 L (8.4-10.2) mg/dL AST 41 H (14-36) U/L Troponin I (0.000-0.034) ng/mL Total Protein 5.6 L (6.3-8.2) g/dL Albumin 2.2 L (3.5-5.0) g/dL Microbiology - Last 24 Hours (Table) 11/10/21 18:22 Blood Culture - Final Blood No Growth after 144 hours 11/10/21 18:22 Blood Culture - Final Blood No Growth after 144 hours Assessment and Plan Assessment: 1. Fever secondary to urinary tract infection with sepsis 2. Positive blood culture. Possible contamination per infectious disease 3. Recent prolonged hospitalization for CHF and pneumonia 4. Recent abdominal hematoma secondary to heparin drip 5. History of Acute kidney injury 6. History of CVA 7. History of diabetes mellitus type 2 8. History of rheumatoid arthritis 9. Essential hypertension 10. Lower extremity DVTs. Status post IVC filter placement 11/14/2021. 11. Sinus tachycardia with heart rate in the 150s. Cardiology consult placed 12. Elevated troponin. Telemetry ordered and patient transfer to higher level care selective care unit Patient maintained on IV antibiotics Cardiology, pulmonary, infectious disease and hematology services are following Patient to be transferred to selective care unit Telemetry ordered
[2021-11-17] MEDS: DICLOFENAC SODIUM GEL 100 GM TUBE TOPICAL SCH ×4 (10:43→21:12)
--- NOTE | 2021-11-17 12:08 | P.PN ---
Subjective Progress Note Date: 11/17/21 Principal diagnosis: Pneumonia Abdominal hematoma/bleed DVT Anemia Pt had tachycardic episode this am, A team evaluated pt and work up obtained. COVID negative, CXR with signs of congestion, Troponins elevated. Hgb 7.9 from 8.3, normal WBC and plt. Objective - Vital Signs Vital signs: Vital Signs Temp 98.3 F 11/17/21 04:21 Pulse 152 H 11/17/21 07:35 Resp 20 11/17/21 04:21 BP 144/74 11/17/21 08:59 Pulse Ox 99 11/17/21 04:21 Intake & Output 11/16/21 11/17/21 11/17/21 18:59 06:59 18:59 Intake Total 1900 Output Total 1000 Balance 1900 -1000 Intake: Intake, IV Titration 900 Amount Sodium Chloride 0.9% 1, 900 000 ml @ 75 mls/hr IV . [id number] [facility] Rx#:[id number] Oral 1000 Output: Urine 1000 Other: Voiding Method Indwelling Catheter Indwelling Catheter # Voids 0 # Bowel Movements 1 - Exam Gen.: In no acute distress HEENT: No scleral icterus. Lungs: On bipap. Heart: Tachycardic. Abdomen: Soft. MSK: No obvious deformities of the hands and arms. Neuro: Alert and oriented 3. Skin: No jaundice. Psych: Appropriate affect. - Labs CBC & Chem 7: 11/17/21 07:32 11/17/21 07:32 Labs: Abnormal Lab Results - Last 24 Hours (Table) 11/16/21 11/16/21 11/16/21 Range/Units 09:47 12:18 17:36 RBC (3.80-5.40) m/uL Hgb (11.4-16.0) gm/dL Hct (34.0-46.0) % MCHC (31.0-37.0) g/dL RDW (11.5-15.5) % D-Dimer (<0.60) mg/L FEU Sodium 135 L (137-145) mmol/L BUN 26 H (7-17) mg/dL Glucose 122 H (74-99) mg/dL POC Glucose (mg/dL) 185 H 196 H (75-99) mg/dL Calcium 7.7 L (8.4-10.2) mg/dL AST 42 H (14-36) U/L Troponin I (0.000-0.034) ng/mL Total Protein 5.5 L (6.3-8.2) g/dL Albumin 2.2 L (3.5-5.0) g/dL 11/16/21 11/17/21 11/17/21 Range/Units 20:13 06:37 07:19 RBC (3.80-5.40) m/uL Hgb (11.4-16.0) gm/dL Hct (34.0-46.0) % MCHC (31.0-37.0) g/dL RDW (11.5-15.5) % D-Dimer (<0.60) mg/L FEU Sodium (137-145) mmol/L BUN (7-17) mg/dL Glucose (74-99) mg/dL POC Glucose (mg/dL) 231 H 119 H 141 H (75-99) mg/dL Calcium (8.4-10.2) mg/dL AST (14-36) U/L Troponin I (0.000-0.034) ng/mL Total Protein (6.3-8.2) g/dL Albumin (3.5-5.0) g/dL 11/17/21 11/17/21 11/17/21 Range/Units 07:32 07:32 07:32 RBC 2.64 L (3.80-5.40) m/uL Hgb 7.9 L (11.4-16.0) gm/dL Hct 26.1 L (34.0-46.0) % MCHC 30.1 L (31.0-37.0) g/dL RDW 16.1 H (11.5-15.5) % D-Dimer (<0.60) mg/L FEU Sodium 136 L (137-145) mmol/L BUN 25 H (7-17) mg/dL Glucose 123 H (74-99) mg/dL POC Glucose (mg/dL) (75-99) mg/dL Calcium 7.6 L (8.4-10.2) mg/dL AST 41 H (14-36) U/L Troponin I 0.860 H* (0.000-0.034) ng/mL Total Protein 5.6 L (6.3-8.2) g/dL Albumin 2.2 L (3.5-5.0) g/dL 11/17/21 11/17/21 Range/Units 07:33 09:41 RBC (3.80-5.40) m/uL Hgb (11.4-16.0) gm/dL Hct (34.0-46.0) % MCHC (31.0-37.0) g/dL RDW (11.5-15.5) % D-Dimer 6.14 H (<0.60) mg/L FEU Sodium (137-145) mmol/L BUN (7-17) mg/dL Glucose (74-99) mg/dL POC Glucose (mg/dL) 170 H (75-99) mg/dL Calcium (8.4-10.2) mg/dL AST (14-36) U/L Troponin I (0.000-0.034) ng/mL Total Protein (6.3-8.2) g/dL Albumin (3.5-5.0) g/dL Microbiology - Last 24 Hours (Table) 11/10/21 18:22 Blood Culture - Final Blood No Growth after 144 hours 11/10/21 18:22 Blood Culture - Final Blood No Growth after 144 hours Assessment and Plan Assessment: 1. Pneumonia 2. DVT 3. Anemia 4. Abdominal hematoma 5. Possible NSTEMI Plan: Ms. Celestin is a very pleasant 75-year-old female who is here for pneumonia. Found to have acute lower extremity DVT. Hemoglobin dropped on anticoagulation, workup revealing abdominal hematoma. Currently anticoagulation is on hold. Her hemoglobin has been very slowly trickling down, 8.3-7.9 today. Prior to that was 6.9 and she had a transfusion. She is on antibiotics for pneumonia. Had tachycardic episode this morning, workup consistent with fluid overload and increased troponin. COVID negative. From hematology standpoint, continue to hold anticoagulation. Plan for IVC filter. Continue to monitor CBC at least daily and supportive transfusion if hemoglobin continues to drop. No objections to prophylactic anticoagulation with Lovenox since hemoglobin seems to be overall stable at this point. Discussed with patient she is agreeable to the plan. All of her questions were answered.
[2021-11-17 13:06] LABS: Glucose,Whole Blood 199 mg/dL (75-99)
--- NOTE | 2021-11-17 13:57 | P.CRDCN ---
History of Present Illness Consult date: 11/17/21 History of present illness: HISTORY OF PRESENT ILLNESS This is a 75-year-old female admitted from [facility] on November 09 for fever and UTI and sepsis, bilateral lower extremity DVT with history of recent abdominal hematoma secondary to heparin drip status post IVC filter on 11/14, asthma, hyperlipidemia, hypertension, acute kidney injury, asthma, history of CVA. She gives history of TIA in 2016 on Plavix for this. Her life skills trainer is Dr. Roman. Patient is also been treated for anemia status post 2 units of packed RBCs. This morning, A-Team was called for shortness of breath patient was found to be tachycardic at 150 bpm and thus cardiology consult was requested. Patient states that she suddenly became more short of breath. She does have chronic complaints of shortness of breath as well as cough and bringing up a lot of sputum that is thick glue like in consistency. She denies having any fever or chills. She states she is eating okay but does have a decreased appetite. She denies any palpitations. No chest pain or chest pressure. EKG was sinus tachycardia with nonspecific ST changes. Heart rate is now 104 sinus rhythm with occasional PACs Chest x-ray 11/17 revealed worsening bilateral multifocal opacities. Suspect: 19 infection and/or infiltrates and current environment. Alveolar and interstitial edema related to CHF exacerbation less likely. Laboratory studies performed today reveal WBC 4.0, hemoglobin 7.9, platelet count 291. D-dimer 6.14. BUN 25 creatinine 0.8. Troponin 0.860 and 0.924. Patient was hospitalized in October 2021 and seen by cardiology at that time for acute non-ST elevated myocardial infection with troponins peaking at 8.020 on October 14 as well as heart failure. Patient developed abdominal wall hematoma at that time as well. Echocardiogram revealed EF of 55-60% with moderate concentric left ventricular hypertrophy, moderate tricuspid regurgitation, mild mitral regurgitation, moderate to severe pulmonary hypertension, RVSP 57.98 mmHg. REVIEW OF SYSTEMS Constitutional: No fever, no chills. No weakness, fatigue or lethargy. EENT: No headache. No dizziness. Lungs: Reports shortness of breath, Reports cough, Reports sputum production. No wheezing. Cardiovascular: No chest pain, no lower extremity edema. No palpitations. No paroxysmal nocturnal dyspnea. Reports chronic orthopnea. No lightheadedness or dizziness. No syncopal episodes. Abdominal: No abdominal pain. No nausea, vomiting. No diarrhea. No constipation. No bloody or tarry stools. Reports loss of appetite. Genitourinary: No dysuria.. No urinary retention. Musculoskeletal: No myalgias. No muscle weakness, no gait dysfunction, no frequent falls. No back pain. No neck pain. Integumentary: No wounds, no lesions. No rash or pruritus. No unusual bruising. Neurologic: No aphasia. No facial droop. No change in mentation. No head injury. No headache. No paralysis. No paresthesia. Psychiatric: No depression. No anxiety. Endocrine: No abnormal blood sugars. PHYSICAL EXAMINATION Gen: This is a obese female, resting in bed and appears to be comfortable and in no acute distress. No respiratory distress noted. VS: Several, heart rate 104, blood pressure 104/55, pulse ox 96% on 2 L nasal cannula. HEENT: Head is atraumatic, normocephalic. Pupils equal, round. Sclerae is anicteric. NECK: Supple. No JVD. No lymphadenopathy. No thyromegaly. LUNGS: Diminished at the bilateral bases. No intercostal retractions. HEART: Regular rate and rhythm. No murmur. ABDOMEN: Soft. Bowel sounds are present. No masses. No tenderness. EXTREMITIES: No pedal edema. No calf tenderness. NEUROLOGICAL: Patient is awake, alert and oriented x3. Cranial nerves 2 through 12 are grossly intact. ASSESSMENT Acute on chronic diastolic heart failure Elevated troponin of unclear significance Hypertension Hyperlipidemia Recent history of non-ST elevated myocardial infarction 10/2021 Abdominal hematoma status post [place] filter Bilateral lower extremity DVT PLAN Patient will be started on IV Lasix 40 mg every 12 hours, patient received 1 dose this morning Repeat 2-D echocardiogram and Doppler study to assess cardiac structure and function Repeat troponin 2. Troponin elevation may be residual from elevated troponi ns/non-ST [place] in 10/2021 Further recommendations to follow based upon clinical course Thank you kindly for this consultation. Nurse practitioner note has been reviewed, I agree with documented findings and plan of care. Patient was seen and examined. Past Medical History Past Medical History: Asthma, CVA/TIA, Diabetes Mellitus, Hyperlipidemia, Hypertension, Rheumatoid Arthritis (RA) Additional Past Medical History / Comment(s): TIA in 2016 History of Any Multi-Drug Resistant Organisms: None Reported Past Surgical History: Appendectomy, Tubal Ligation Additional Past Surgical History / Comment(s): Colonoscopy, cataracts surg sep 30 & 2020 Past Anesthesia/Blood Transfusion Reactions: No Reported Reaction Past Psychological History: No Psychological Hx Reported Smoking Status: Never smoker Past Alcohol Use History: None Reported Past Drug Use History: None Reported - Past Family History Father Family Medical History: Cancer, Congestive Heart Failure (CHF) Additional Family Medical History / Comment(s): colon cancer Mother Family Medical History: Rheumatoid Arthritis (RA) Medications and Allergies Home Medications Medication Instructions Recorded Confirmed Type Metoprolol Succinate (ER) [Toprol 25 mg PO DAILY 05/14/19 11/09/21 History XL] Montelukast [Singulair] 10 mg PO HS #30 tab 05/24/19 11/09/21 Rx Albuterol Inhaler [Ventolin Hfa 1 - 2 puff INHALATION RT-QID PRN 06/14/20 11/09/21 History Inhaler] Tolterodine ER [Detrol LA] 4 mg PO DAILY 06/14/20 11/09/21 History Ferrous Sulfate [Iron (65 MG 325 mg PO HS 02/16/21 11/09/21 History Elemental)] Acetaminophen Tab [Tylenol] 1,000 mg PO Q6H PRN 10/13/21 11/09/21 History Cholecalciferol [Vitamin D3 (25 50 mcg PO DAILY 10/13/21 11/09/21 History Mcg = 1000 Iu)] Ezetimibe [Zetia] 10 mg PO DAILY 10/13/21 11/09/21 History Levothyroxine Sodium [Synthroid] 25 mcg PO DAILY@0600 10/13/21 11/09/21 History glipiZIDE [Glucotrol] 5 mg PO TID@0900,1300,2100 10/13/21 11/09/21 History guaiFENesin [Diabetic Tussin] 200 mg PO Q6H PRN 10/13/21 11/09/21 History prednisoLONE ACETATE 1% OPHTH 1 drop BOTH EYES QID 10/13/21 11/09/21 History [Pred Forte 1%] Cefuroxime Axetil [Ceftin] 500 mg PO BID 7 Days #14 tab 10/25/21 11/09/21 Rx Docusate [Colace] 100 mg PO BID cap 10/25/21 11/09/21 Rx Furosemide [Lasix] 40 mg PO DAILY 30 Days #30 tablet 10/25/21 11/09/21 Rx Pantoprazole Sodium [Protonix] 40 mg PO DAILY 30 Days #30 tab 10/25/21 11/09/21 Rx amLODIPine [Norvasc] 10 mg PO DAILY tab 10/25/21 11/09/21 Rx Dextrose/Dextrin/Maltose 31 gm PO ONCE PRN 11/09/21 11/09/21 History [Insta-Glucose Gel] Glucagon Emergency Kit 1 mg IM ONCE PRN 11/09/21 11/09/21 History Oxymetazoline 0.05% Nasl [place] 1 spray EA NOSTRIL Q4H PRN 11/09/21 11/09/21 Hi story [Afrin 0.05% Nasal [place]] predniSONE 5 mg PO DAILY 11/09/21 11/09/21 History Allergies Allergy/AdvReac Type Severity Reaction Status Date / Time atorvastatin [From Lipitor] AdvReac CRAMPS Verified 11/09/21 15:53 latex AdvReac Itching Verified 11/09/21 15:53 Physical Exam Vitals: Vital Signs Temp Pulse Pulse Resp BP Pulse Ox 11/17/21 11:27 100 11/17/21 11:17 104 H 11/17/21 08:59 144/74 11/17/21 07:35 152 H 11/17/21 07:25 148 H 11/17/21 04:26 100 11/17/21 04:21 98.3 F 102 H 20 141/75 99 11/17/21 04:17 96 11/16/21 23:38 95 11/16/21 23:25 100 11/16/21 20:40 98.0 F 87 16 140/64 99 11/16/21 19:43 105 H 11/16/21 19:36 102 H 11/16/21 16:00 108 H 11/16/21 15:53 106 H 11/16/21 13:00 98.9 F 101 H 18 149/77 97 Intake and Output 11/16/21 11/17/21 11/17/21 22:59 06:59 14:59 Intake Total 1420 Output Total 1000 Balance 1420 -1000 Intake: Intake, IV Titration 900 Amount Sodium Chloride 0.9% 1, 900 000 ml @ 75 mls/hr IV . [id number] [facility] Rx#:[id number] Oral 520 Output: Urine 1000 Other: Voiding Method Indwelling Catheter # Bowel Movements 1 Results 11/17/21 07:32 11/17/21 07:32 Cardiac Enzymes 11/17/21 11/17/21 Range/Units 07:32 07:32 AST 41 H (14-36) U/L Troponin I 0.860 H* (0.000-0.034) ng/mL CBC 11/17/21 Range/Units 07:32 WBC 4.0 (3.8-10.6) k/uL RBC 2.64 L (3.80-5.40) m/uL Hgb 7.9 L (11.4-16.0) gm/dL Hct 26.1 L (34.0-46.0) % Plt Count 291 (150-450) k/uL Comprehensive Metabolic Panel 11/17/21 Range/Units 07:32 Sodium 136 L (137-145) mmol/L Potassium 4.2 (3.5-5.1) mmol/L Chloride 105 (98-107) mmol/L Carbon Dioxide 25 (22-30) mmol/L BUN 25 H (7-17) mg/dL Creatinine 0.80 (0.52-1.04) mg/dL Glucose 123 H (74-99) mg/dL Calcium 7.6 L (8.4-10.2) mg/dL AST 41 H (14-36) U/L ALT 24 (4-34) U/L Alkaline Phosphatase 100 (38-126) U/L Total Protein 5.6 L (6.3-8.2) g/dL Albumin 2.2 L (3.5-5.0) g/dL Current Medications Generic Name Dose Route Start Last Admin Trade Name Freq PRN Reason Stop Dose Admin Acetaminophen 650 mg 11/09/21 15:15 11/16/21 13:36 Acetaminophen Tab 325 Mg Tab PO 650 mg Q6HR PRN Administration Mild Pain or Fever > 100.5 Albuterol Sulfate 2.5 mg 11/10/21 15:32 11/15/21 08:02 Albuterol Nebulized 2.5 Mg/3 Ml INHALATION 2.5 mg RT-QID PRN Administration Shortness Of Breath Albuterol Sulfate 2.5 mg 11/15/21 12:00 11/17/21 11:17 Albuterol Nebulized 2.5 Mg/3 Ml INHALATION 2.5 mg RT-Q4H [facility] Administration Albuterol Sulfate 2 puff 11/16/21 15:23 Albuterol Hfa Inhaler INHALATION Q4H PRN Shortness Of Breath Or Wheezing Amlodipine Besylate 10 mg 11/11/21 09:00 11/17/21 07:05 Amlodipine 10 Mg Tab PO 10 mg DAILY [facility] Administration Cholecalciferol 50 mcg 11/11/21 09:00 11/17/21 09:57 Cholecalciferol 25 Mcg (1000 Iu) Tablet PO 50 mcg DAILY [facility] Administration Diclofenac Sodium 2 gm 11/16/21 18:00 11/17/21 10:43 Diclofenac Sodium Gel 100 Gm Tube TOPICAL 2 gm QID [facility] Administration Protocol Docusate Sodium 100 mg 11/10/21 21:00 11/17/21 09:57 Docusate 100 Mg Cap PO 100 mg BID [facility] Administration Ezetimibe 10 mg 11/11/21 09:00 11/17/21 09:57 Ezetimibe 10 Mg Tab PO 10 mg DAILY [facility] Administration Ferrous Sulfate 325 mg 11/10/21 21:00 11/16/21 21:29 Ferrous Sulfate 325 Mg Tab PO 325 mg HS [facility] Administration Furosemide 40 mg 11/11/21 09:00 11/17/21 07:04 Furosemide 40 Mg Tab PO 40 mg DAILY [facility] Administration Guaifenesin 200 mg 11/10/21 10:59 11/12/21 09:58 Guaifenesin Syrup 100mg/5ml 200 Mg/10 Ml Cup PO 200 mg Q6H PRN Administration Cough Sodium Chloride 1,000 mls @ 75 mls/hr 11/09/21 13:30 11/17/21 07:52 Saline 0.9% IV Not Given .[id number] [facility] Daptomycin 500 mg/ Sodium 50 mls @ 100 mls/hr 11/11/21 23:00 11/16/21 23:10 Chloride IVPB 100 mls/hr Q24H [facility] Administration Protocol Insulin Aspart 0 unit 11/09/21 21:00 11/17/21 09:57 Insulin Aspart (Novolog) 100 Unit/Ml Vial SQ 2 unit ACHS [facility] Administration Protocol Levothyroxine Sodium 25 mcg 11/11/21 06:00 11/17/21 04:48 Levothyroxine 25 Mcg Tab PO 25 mcg DAILY@0600 [facility] Administration Metoprolol Succinate 25 mg 11/10/21 11:30 11/17/21 07:04 Metoprolol Succinate (Er) 25 Mg Tab.Er.24h PO 25 mg DAILY [facility] Administration Montelukast Sodium 10 mg 11/10/21 21:00 11/16/21 21:29 Montelukast 10 Mg Tab PO 10 mg HS [facility] Administration Morphine Sulfate 2 mg 11/15/21 09:59 Morphine Sulfate 2 Mg/Ml Syringe IVP Q4HR PRN Pain/Discomfort Naloxone HCl 0.2 mg 11/09/21 15:15 Naloxone 0.4 Mg/Ml 1 Ml Vial IV Q2M PRN Opioid Reversal Ondansetron HCl 4 mg 11/11/21 02:30 11/12/21 23:27 Ondansetron 4 Mg/2 Ml Vial IVP 4 mg Q6HR PRN Administration Nausea And Vomiting Oxybutynin Chloride 10 mg 11/11/21 09:00 11/17/21 09:57 Oxybutynin 10 Mg Tab.Er.24 PO 10 mg DAILY [facility] Administration Oxymetazoline HCl 1 spray 11/10/21 15:32 Oxymetazoline 0.05% Nasl [place] 1 [place] Bottle EA NOSTRIL Q4H PRN nose bleeds Pantoprazole Sodium 40 mg 11/10/21 09:00 11/17/21 09:57 Pantoprazole 40 Mg/10 Ml Vial IV 40 mg DAILY [facility] Administration Prednisone 5 mg 11/11/21 09:00 11/17/21 09:57 Prednisone 5 Mg Tab PO 5 mg DAILY [facility] Administration Intake and Output 11/16/21 11/17/21 11/17/21 22:59 06:59 14:59 Intake Total 1420 Output Total 1000 Balance 1420 -1000 Intake: Intake, IV Titration 900 Amount Sodium Chloride 0.9% 1, 900 000 ml @ 75 mls/hr IV . [id number] [facility] Rx#:[id number] Oral 520 Output: Urine 1000 Other: Voiding Method Indwelling Catheter # Bowel Movements 1 11/17/21 07:32 11/17/21 07:32
[2021-11-17 16:39] LABS: Glucose,Whole Blood 193 mg/dL (75-99)
--- NOTE | 2021-11-17 20:21 | PN ---
PROGRESS NOTE DATE OF SERVICE: 11/17/2021 REASON FOR FOLLOWUP: 1. VRE urinary tract infection. 2. Abnormal x-ray and a question of pneumonia. INTERVAL HISTORY: Patient did have an episode of chest pain yesterday A-fib with RVR, the patient transferred to the cardiac unit. The patient denies having any chest pain currently. Patient has been complaining of shortness of breath and did have a cough which is mostly dry in nature. No nausea, no vomiting. No abdominal pain or diarrhea. PHYSICAL EXAMINATION: Blood pressure 121/71, pulse 100. Temperature 97.1. She is 97% on 2 L nasal cannula. General description is an elderly female lying in bed in no distress. Respiratory system: Unlabored breathing, decreased intensity of breath sounds. No wheeze. Heart S1, S2. Regular rate and rhythm. Abdomen soft, no tenderness. LABS: The patient did have elevated troponin. Did have elevated pro-BNP. X-rays with more likely CHF related. DIAGNOSTIC IMPRESSION AND PLAN: 1. Patient with VRE urinary tract infection the patient's fever has resolved on Daptomycin to continue while inpatient. 2. Patient with abnormal x-ray with chest pain, elevated proBNP. More likely cardiac etiology. Clinically not behaving as pneumonia. We will check a procalcitonin level and monitor clinical course closely. [place] / BRANDIEN: [id number] /
[2021-11-17 20:31] LABS: Glucose,Whole Blood 169 mg/dL (75-99)
[2021-11-17] MEDS: FUROSEMIDE 10 MG/ML 4 ML VIAL IV SCH (21:11)
[2021-11-17] MEDS: MONTELUKAST 10 MG TAB PO SCH (21:11)
[2021-11-17] MEDS: FERROUS SULFATE 325 MG TAB PO SCH (21:11)
[2021-11-17] MEDS: DAPTOmycin 500 MG in SODIUM CHLORIDE 0.9% 50 ML IVPB SCH (23:05)
[2021-11-18] MEDS: ALBUTEROL NEBULIZED 2.5 MG/3 ML INHALATION SCH ×7 (00:15→23:57)
[2021-11-18] MEDS: INSULIN ASPART (NovoLOG) 100 UNIT/ML VIAL SQ SCH ×4 (06:11→21:29)
[2021-11-18 06:13] LABS: Glucose,Whole Blood 104 mg/dL (75-99)
[2021-11-18] MEDS: LEVOTHYROXINE 25 MCG TAB PO SCH (06:17)
[2021-11-18 09:12] LABS: Anisocytosis Slight; HCT 25.8 % (34.0-46.0); HGB 7.8 gm/dL (11.4-16.0); Hypochromasia Marked; MCH 29.7 pg (25.0-35.0); MCHC 30.2 g/dL (31.0-37.0); MCV 98.4 fL (80.0-100.0); Macrocytosis Slight; Mean Platelet Volume 8.6; Platelet Count 220 k/uL (150-450); RBC 2.62 m/uL (3.80-5.40); RDW 16.8 % (11.5-15.5); WBC 3.5 k/uL (3.8-10.6)
[2021-11-18 09:18] LABS: Albumin 2.1 g/dL (3.5-5.0); C Reactive Protein 5.4 mg/dL (<1.0); Calcium 7.8 mg/dL (8.4-10.2); Total Bilirubin 1.1 mg/dL (0.2-1.3); Total Protein 5.5 g/dL (6.3-8.2)
[2021-11-18 09:44] LABS: Band Neutrophils % 2 %; Eosinophils # (M) 0.04 k/uL (0-0.7); Lymphocytes # (M) 1.12 k/uL (1.0-4.8); Metamyelocytes # (M) 0.07 k/uL (0); Metamyelocytes % 2 %; Monocytes # (M) 0.28 k/uL (0-1.0); Myelocytes # (M) 0.04 k/uL (0); Myelocytes % 1 %; Neutrophils % (M) 56 %; Nucleated Red Blood Cells 0 /100 WBC (0-0); Total Cells Counted 200
[2021-11-18 09:45] LABS: Polychromasia Present
[2021-11-18 09:46] LABS: Poikilocytosis (M) Present
--- NOTE | 2021-11-18 10:05 | ECHOF ---
Referral Reason:LVF MEASUREMENTS -------- HEIGHT: 172.7 cm WEIGHT: 108.9 kg BP: RVIDd: 3.2 cm (< 3.3) IVSd: 1.3 cm (0.6 - 1.1) LVIDd: 3.2 cm (3.9 - 5.3) LVPWd: 1.5 cm (0.6 - 1.1) IVSs: 2.1 cm LVIDs: 1.8 cm LVPWs: 2.0 cm FINDINGS -------- Limited Study The left ventricular size is normal. There is mild concentric left ventricular hypertrophy. Overa ll left ventricular systolic function is mildly impaired with, an EF between 45 - 50 %. There is no pericardial effusion. CONCLUSIONS -------- 1. The left ventricular size is normal. 2. There is mild concentric left ventricular hypertrophy. 3. Overall left ventricular systolic function is mildly impaired with, an EF between 45 - 50 %. 4. There is no pericardial effusion. [employer] HEAD: Rosa Bishop RDCS
[2021-11-18] MEDS: FUROSEMIDE 10 MG/ML 4 ML VIAL IV SCH (10:11)
[2021-11-18] MEDS: EZETIMIBE 10 MG TAB PO SCH (10:11)
[2021-11-18] MEDS: PANTOPRAZOLE 40 MG/10 ML VIAL IV SCH (10:11)
[2021-11-18] MEDS: predniSONE 5 MG TAB PO SCH (10:12)
[2021-11-18] MEDS: amLODIPine 10 MG TAB PO SCH (10:12)
[2021-11-18] MEDS: METOPROLOL SUCCINATE (ER) 25 MG TAB.ER.24H PO SCH (10:12)
[2021-11-18] MEDS: DICLOFENAC SODIUM GEL 100 GM TUBE TOPICAL SCH ×4 (10:12→21:28)
[2021-11-18] MEDS: OXYBUTYNIN 10 MG TAB.ER.24 PO SCH (10:12)
[2021-11-18] MEDS: CHOLECALCIFEROL 25 MCG (1000 IU) TABLET PO SCH (10:12)
[2021-11-18] MEDS: DOCUSATE 100 MG CAP PO SCH ×2 (10:12→19:53)
[2021-11-18 12:06] LABS: Glucose,Whole Blood 149 mg/dL (75-99)
--- NOTE | 2021-11-18 12:33 | P.PN ---
Subjective Progress Note Date: 11/18/21 Principal diagnosis: Recent hemoatoma on heparin, acute BLE DVT. 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 She had IVC placed, denies bleeding, no worsening swelling in the legs. Easy bruising persists Objective - Vital Signs Vital signs: Vital Signs Temp 98.7 F 11/18/21 10:10 Pulse 88 11/18/21 10:10 Resp 19 11/18/21 10:10 BP 134/70 11/18/21 10:10 Pulse Ox 97 11/18/21 10:10 Intake & Output 11/17/21 11/18/21 11/18/21 18:59 06:59 18:59 Intake Total 360 60 600 Output Total 400 1075 Balance -40 -1015 600 Intake: IV 10 0.9 10 Intake, IV Titration 50 Amount DAPTOmycin 500 mg In 50 Sodium Chloride 0.9% 50 ml @ 100 mls/hr IVPB Q24H [facility] Rx#:[id number] Oral 360 600 Output: Urine 400 1075 Stool 0 Other: Voiding Method Indwelling Catheter Indwelling Catheter Indwelling Catheter # Voids 0 # Bowel Movements 0 1 - Constitutional General appearance: Present: cooperative, morbidly obese, no acute distress - EENT Eyes: Present: anicteric sclerae, EOMI ENT: Present: hearing grossly normal - Respiratory Details: resp even and unlabored - Integumentary Integumentary Comment(s): scattered bruising in upper extremities - Neurologic Neurologic: Present: CNII-XII intact - Musculoskeletal Musculoskeletal: Present: generalized weakness - Psychiatric Psychiatric: Present: A&O x's 3, appropriate affect, intact judgment & insight - Labs CBC & Chem 7: 11/18/21 08:02 11/18/21 08:02 Labs: Abnormal Lab Results - Last 24 Hours (Table) 11/17/21 11/17/21 11/17/21 Range/Units 12:21 13:04 14:32 WBC (3.8-10.6) k/uL RBC (3.80-5.40) m/uL Hgb (11.4-16.0) gm/dL Hct (34.0-46.0) % MCHC (31.0-37.0) g/dL RDW (11.5-15.5) % Metamyelocytes # (Man) (0) k/uL Myelocytes # (Manual) (0) k/uL Sodium (137-145) mmol/L BUN (7-17) mg/dL Glucose (74-99) mg/dL POC Glucose (mg/dL) 199 H (75-99) mg/dL Calcium (8.4-10.2) mg/dL AST (14-36) U/L Troponin I 0.924 H* 0.958 H* (0.000-0.034) ng/mL C-Reactive Protein (<1.0) mg/dL Total Protein (6.3-8.2) g/dL Albumin (3.5-5.0) g/dL 11/17/21 11/17/21 11/18/21 Range/Units 16:38 20:25 06:11 WBC (3.8-10.6) k/uL RBC (3.80-5.40) m/uL Hgb (11.4-16.0) gm/dL Hct (34.0-46.0) % MCHC (31.0-37.0) g/dL RDW (11.5-15.5) % Metamyelocytes # (Man) (0) k/uL Myelocytes # (Manual) (0) k/uL Sodium (137-145) mmol/L BUN (7-17) mg/dL Glucose (74-99) mg/dL POC Glucose (mg/dL) 193 H 169 H 104 H (75-99) mg/dL Calcium (8.4-10.2) mg/dL AST (14-36) U/L Troponin I (0.000-0.034) ng/mL C-Reactive Protein (<1.0) mg/dL Total Protein (6.3-8.2) g/dL Albumin (3.5-5.0) g/dL 11/18/21 11/18/21 11/18/21 Range/Units 08:02 08:02 11:47 WBC 3.5 L (3.8-10.6) k/uL RBC 2.62 L (3.80-5.40) m/uL Hgb 7.8 L (11.4-16.0) gm/dL Hct 25.8 L (34.0-46.0) % MCHC 30.2 L (31.0-37.0) g/dL RDW 16.8 H (11.5-15.5) % Metamyelocytes # (Man) 0.07 H (0) k/uL Myelocytes # (Manual) 0.04 H (0) k/uL Sodium 135 L (137-145) mmol/L BUN 30 H (7-17) mg/dL Glucose 115 H (74-99) mg/dL POC Glucose (mg/dL) 149 H (75-99) mg/dL Calcium 7.8 L (8.4-10.2) mg/dL AST 39 H (14-36) U/L Troponin I (0.000-0.034) ng/mL C-Reactive Protein 5.4 H (<1.0) mg/dL Total Protein 5.5 L (6.3-8.2) g/dL Albumin 2.1 L (3.5-5.0) g/dL - Imaging and Cardiology Chest x-ray: report reviewed ECHO report reviewed Assessment and Plan (1) DVT (deep venous thrombosis) Narrative/Plan: BLE DVT, acute. S/P IVC filter placement. Cont to hold anticoagulation for recent bleeding CT AP reveals a decrease in previous hematoma Current Visit: Yes Status: Acute Priority: High Code(s): I82.409 - ACUTE EMBOLISM AND THOMBOS UNSP DEEP VN UNSP LOWER EXTREMITY SNOMED Code(s): 300394990 (2) Anemia Narrative/Plan: On chart review she was noted to be significantly anemic around February 2021. She is also noted to have an increase in her creatinine at that time as well. Her Hgb was in the 8 range on DC in Oct. It was 8 range this admit. She has required 2 units since admit. Hgb remains in the 7 range at this time. Transfuse for Hgb <7. 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 Pt meets CRAB criteria with anemia, renal failure. Otherwise, Calcium is low, near normal. Ordered bone survey to evaluate for myeoma lesions. Will await additional studies then will discuss if treatment is necessary or if observation is reasonable. 24 hour urine for light chains, PEP ordered The above was discussed with pt. She verbalized understanding the plan. Current Visit: Yes Status: Acute Priority: High Code(s): D47.2 - MONOCLONAL GAMMOPATHY SNOMED Code(s): 822601496
--- NOTE | 2021-11-18 13:18 | P.PN ---
Subjective HISTORY OF PRESENT ILLNESS This is a 75-year-old female admitted from [facility] on November 09 for fever and UTI and sepsis, bilateral lower extremity DVT with history of recent abdominal hematoma secondary to heparin drip status post IVC filter on 11/14/21, asthma, hyperlipidemia, hypertension, acute kidney injury, asthma, history of CVA. She gives history of TIA in 2016 on Plavix for this. Her assessment consultant is Dr. Roman. Patient is also been treated for anemia status post 2 units of packed RBCs. Patient was seen by cardiology in 10/2021 for elevated troponin, which was likely due to hypertension emergency at that time. On 11/17/21- A-Team was called for shortness of breath patient was found to be tachycardic at 150 bpm and thus cardiology consult was requested. Patient states that she suddenly became more short of breath. EKG was sinus tachycardia with nonspecific ST changes. Chest x-ray 11/17 revealed worsening bilateral multifocal opacities. Suspect: covid 19 infection and/or infiltrates and current environment. Alveolar and interstitial edema related to CHF exacerbation less likely. 11/18/21 Patient seen at bedside, no acute distress. She continues to have some shortness of breath. Denies chest pain. She is maintaining sinus mechanism heart rate in the 80s-90s. Patient with 1475mL urine output over the past 24 hours. Echocardiogram revealed EF of 4550% Laboratory reviewed, sodium 135, potassium 4.0, BUN 30, serum creatinine 0.9 She's currently maintained on IV Lasix 40 mg twice a day, amlodipine 10 mg daily, metoprolol succinate 25 mg daily PHYSICAL EXAMINATION Gen: This is a obese female, resting in bed and appears to be comfortable and in no acute distress. No respiratory distress noted. Vitals reviewed HEENT: Head is atraumatic, normocephalic. Pupils equal, round. Sclerae is anicteric. NECK: Supple. No JVD. No lymphadenopathy. No thyromegaly. LUNGS: Diminished at the bilateral bases. No intercostal retractions. HEART: Regular rate and rhythm. No murmur. ABDOMEN: Soft. Bowel sounds are present. No masses. No tenderness. EXTREMITIES: No pedal edema. No calf tenderness. NEUROLOGICAL: Patient is awake, alert and oriented x3. ASSESSMENT Acute on chronic diastolic heart failure Sinus tachycardia Elevated troponin, likely type II event Hypertension Hyperlipidemia Abdominal hematoma status post [place] filter Bilateral lower extremity DVT s/p IV filter 11/14/2021 Fever Urinary tract infection PLAN Decrease IV Lasix 40 mg daily Monitor renal function and electrolytes Monitor I/Os daily weights Continue home cardiac medications Further recommendations to follow based upon clinical course Nurse practitioner note has been reviewed, I agree with documented findings and plan of care. Patient was seen and examined. Objective - Vital Signs Vital signs: Vital Signs Temp 98.7 F 11/18/21 10:10 Pulse 88 11/18/21 10:10 Resp 19 11/18/21 10:10 BP 134/70 11/18/21 10:10 Pulse Ox 97 11/18/21 10:10 Intake & Output 11/17/21 11/18/21 11/18/21 18:59 06:59 18:59 Intake Total 360 60 600 Output Total 400 1075 Balance -40 -1015 600 Intake: IV 10 0.9 10 Intake, IV Titration 50 Amount DAPTOmycin 500 mg In 50 Sodium Chloride 0.9% 50 ml @ 100 mls/hr IVPB Q24H [facility] Rx#:[id number] Oral 360 600 Output: Urine 400 1075 Stool 0 Other: Voiding Method Indwelling Catheter Indwelling Catheter Indwelling Catheter # Voids 0 # Bowel Movements 0 1 - Labs CBC & Chem 7: 11/18/21 08:02 11/18/21 08:02 Labs: Abnormal Lab Results - Last 24 Hours (Table) 11/17/21 11/17/21 11/17/21 Range/Units 12:21 14:32 16:38 WBC (3.8-10.6) k/uL RBC (3.80-5.40) m/uL Hgb (11.4-16.0) gm/dL Hct (34.0-46.0) % MCHC (31.0-37.0) g/dL RDW (11.5-15.5) % Metamyelocytes # (Man) (0) k/uL Myelocytes # (Manual) (0) k/uL Sodium (137-145) mmol/L BUN (7-17) mg/dL Glucose (74-99) mg/dL POC Glucose (mg/dL) 193 H (75-99) mg/dL Calcium (8.4-10.2) mg/dL AST (14-36) U/L Troponin I 0.924 H* 0.958 H* (0.000-0.034) ng/mL C-Reactive Protein (<1.0) mg/dL Total Protein (6.3-8.2) g/dL Albumin (3.5-5.0) g/dL 11/17/21 11/18/21 11/18/21 Range/Units 20:25 06:11 08:02 WBC 3.5 L (3.8-10.6) k/uL RBC 2.62 L (3.80-5.40) m/uL Hgb 7.8 L (11.4-16.0) gm/dL Hct 25.8 L (34.0-46.0) % MCHC 30.2 L (31.0-37.0) g/dL RDW 16.8 H (11.5-15.5) % Metamyelocytes # (Man) 0.07 H (0) k/uL Myelocytes # (Manual) 0.04 H (0) k/uL Sodium (137-145) mmol/L BUN (7-17) mg/dL Glucose (74-99) mg/dL POC Glucose (mg/dL) 169 H 104 H (75-99) mg/dL Calcium (8.4-10.2) mg/dL AST (14-36) U/L Troponin I (0.000-0.034) ng/mL C-Reactive Protein (<1.0) mg/dL Total Protein (6.3-8.2) g/dL Albumin (3.5-5.0) g/dL 11/18/21 11/18/21 Range/Units 08:02 11:47 WBC (3.8-10.6) k/uL RBC (3.80-5.40) m/uL Hgb (11.4-16.0) gm/dL Hct (34.0-46.0) % MCHC (31.0-37.0) g/dL RDW (11.5-15.5) % Metamyelocytes # (Man) (0) k/uL Myelocytes # (Manual) (0) k/uL Sodium 135 L (137-145) mmol/L BUN 30 H (7-17) mg/dL Glucose 115 H (74-99) mg/dL POC Glucose (mg/dL) 149 H (75-99) mg/dL Calcium 7.8 L (8.4-10.2) mg/dL AST 39 H (14-36) U/L Troponin I (0.000-0.034) ng/mL C-Reactive Protein 5.4 H (<1.0) mg/dL Total Protein 5.5 L (6.3-8.2) g/dL Albumin 2.1 L (3.5-5.0) g/dL
[2021-11-18] MEDS: ENOXAPARIN 40 MG/0.4 ML SYRINGE SQ SCH (13:33)
[2021-11-18 17:12] LABS: Glucose,Whole Blood 262 mg/dL (75-99)
--- NOTE | 2021-11-18 17:12 | P.PN ---
Subjective Progress Note Date: 11/18/21 I am starting care for this patient on 11/11/2020, Dr Muhammad was covering for me This is an 75-year-old female patient who initially presented to the ER with concerns of fever from [facility] facility. Patient was positive for urinary tract infection. COVID-19 was negative. Patient had recent prolonged hospitalization for acute CHF Exacerbation and right lower lobe pneumonia. During that hospitalization patient was maintained on heparin drip for possible non-ST elevated AR and developed secondary abdominal wall hematoma. Patient to cooperate 2 units are PRBCs. Patient also had secondary acute kidney injury and urinary retention. Urine culture positive for group D enterococcus and blood culture positive for staphylococcus epidermis. Patient has been started on IV antibiotics. Infectious disease services were consulted. On 11/11/2021 patient's alert and oriented 3 resting comfortably in bed. Patient remains on IV antibiotics. Patient still having elevated temps. At this time patient denies chest pain or shortness of breath. Diarrhea. Patient denies any urinary burning or frequency On 11/12/2021 patient was seen and examined on the medical floor she is alert and oriented 3 in no apparent distress she had elevated d-dimer lower extremity Doppler revealed bilateral lower extremity DVT she was started on full therapeutic dose of Lovenox this morning her hemoglobin was down to 6.8 she received 1 unit of red blood cell transfusion otherwise she continues to be on IV antibiotics she denies any complaints at this time On 11/13/2009 to patient's alert and oriented 3. She will globin improving to 7.9 status post 1 unit of PRBCs. Definitive plans for IVC filter. Hematology and vascular surgery following. Patient remains on IV antibiotics. At that t verena patient denies chest pain.. Patient denies shortness breath. Patient denies nausea vomiting or diarrhea. Patient denies any urinary burning or frequency On 11/14/2021. Patient's alert and oriented 3. Patient to undergo IVC filter today. On 11/15/2021 status post IVC filter. Patient is currently sitting up in chair. Patient alert and oriented 3. Patient remains on subcu Lovenox 100 every 12 hours. hgb 6.9. 1 unit PRBCs have been ordered. Patient remains on IV daptomycin. Patient complaining of hip pain which apparently is chronic for her order additional pain medication. Patient denies chest pain or shortness breath. Patient. Patient denies any urinary burning or frequency On 11/16/2021 patient was seen and examined on the medical floor, she is complaining of pain in the right hip area otherwise she denies any complaints there is no fever or chills no headache or dizziness no chest pain no shortness of breath no cough no nausea or vomiting no abdominal pain no diarrhea no blood in the stools no burning with urination no frequency or urgency and no hematuria. Hemoglobin is stable today at 8.3. Per Dr. Wang with recommendation, full dose Lovenox was discontinued yesterday, she will be started on Lovenox 40 mg subcu daily today, will check x-ray of the right hip, patient was given Voltaren gel to the right hip per her request On 11/17/2021 patient is alert and oriented 3. Patient had episode of elevated heart rate in the 150s. A team was called. Patient also currently getting treated for pneumonia. At this time will transfer patient to cardiac stepdown unit. Telemetry ordered. Stat labs ordered. Cardiology consult in place. Patient reports improvement. Patient denies chest pain. At this time cardiology, pulmonary, infectious disease and hematology services are following. On 11/18/2021 patient was seen and examined on the medical floor she is alert and oriented 3 in no apparent distress there is no fever or chills no headache or dizziness no chest pain no shortness of breath no cough no nausea or vomiting no abdominal pain no diarrhea no blood in the stools will burning with urination no frequency or urgency no hematuria. Hemoglobin is stable at 7.8. Input from multiple specialists review, patient will be restarted on Lovenox at 40 mg subcu once daily, will continue to follow closely. Objective - Vital Signs Vital signs: Vital Signs Temp 98.7 F 11/18/21 10:10 Pulse 88 11/18/21 10:10 Resp 19 11/18/21 10:10 BP 134/70 11/18/21 10:10 Pulse Ox 97 11/18/21 10:10 Intake & Output 11/17/21 11/18/21 11/18/21 18:59 06:59 18:59 Intake Total 360 60 600 Output Total 400 1075 Balance -40 -1015 600 Intake: IV 10 0.9 10 Intake, IV Titration 50 Amount DAPTOmycin 500 mg In 50 Sodium Chloride 0.9% 50 ml @ 100 mls/hr IVPB Q24H [facility] Rx#:[id number] Oral 360 600 Output: Urine 400 1075 Stool 0 Other: Voiding Method Indwelling Catheter Indwelling Catheter # Voids 0 # Bowel Movements 0 - Exam Head normocephalic Neck supple Lungs clear to auscultation bilaterally no wheezing or crackles Heart regular rate and rhythm S1-S2, no rub or gallop Abdomen is soft nontender nondistended positive bowel sounds no hepatosplenomegaly Extremities no edema Neuro alert and orientated to 3 - Labs CBC & Chem 7: 11/18/21 08:02 11/18/21 08:02 Labs: Abnormal Lab Results - Last 24 Hours (Table) 11/17/21 11/17/21 11/17/21 Range/Units 12:21 13:04 14:32 WBC (3.8-10.6) k/uL RBC (3.80-5.40) m/uL Hgb (11.4-16.0) gm/dL Hct (34.0-46.0) % MCHC (31.0-37.0) g/dL RDW (11.5-15.5) % Metamyelocytes # (Man) (0) k/uL Myelocytes # (Manual) (0) k/uL Sodium (137-145) mmol/L BUN (7-17) mg/dL Glucose (74-99) mg/dL POC Glucose (mg/dL) 199 H (75-99) mg/dL Calcium (8.4-10.2) mg/dL AST (14-36) U/L Troponin I 0.924 H* 0.958 H* (0.000-0.034) ng/mL C-Reactive Protein (<1.0) mg/dL Total Protein (6.3-8.2) g/dL Albumin (3.5-5.0) g/dL 11/17/21 11/17/21 11/18/21 Range/Units 16:38 20:25 06:11 WBC (3.8-10.6) k/uL RBC (3.80-5.40) m/uL Hgb (11.4-16.0) gm/dL Hct (34.0-46.0) % MCHC (31.0-37.0) g/dL RDW (11.5-15.5) % Metamyelocytes # (Man) (0) k/uL Myelocytes # (Manual) (0) k/uL Sodium (137-145) mmol/L BUN (7-17) mg/dL Glucose (74-99) mg/dL POC Glucose (mg/dL) 193 H 169 H 104 H (75-99) mg/dL Calcium (8.4-10.2) mg/dL AST (14-36) U/L Troponin I (0.000-0.034) ng/mL C-Reactive Protein (<1.0) mg/dL Total Protein (6.3-8.2) g/dL Albumin (3.5-5.0) g/dL 11/18/21 11/18/21 Range/Units 08:02 08:02 WBC 3.5 L (3.8-10.6) k/uL RBC 2.62 L (3.80-5.40) m/uL Hgb 7.8 L (11.4-16.0) gm/dL Hct 25.8 L (34.0-46.0) % MCHC 30.2 L (31.0-37.0) g/dL RDW 16.8 H (11.5-15.5) % Metamyelocytes # (Man) 0.07 H (0) k/uL Myelocytes # (Manual) 0.04 H (0) k/uL Sodium 135 L (137-145) mmol/L BUN 30 H (7-17) mg/dL Glucose 115 H (74-99) mg/dL POC Glucose (mg/dL) (75-99) mg/dL Calcium 7.8 L (8.4-10.2) mg/dL AST 39 H (14-36) U/L Troponin I (0.000-0.034) ng/mL C-Reactive Protein 5.4 H (<1.0) mg/dL Total Protein 5.5 L (6.3-8.2) g/dL Albumin 2.1 L (3.5-5.0) g/dL Assessment and Plan Assessment: 1. Fever secondary to urinary tract infection with sepsis 2. Positive blood culture. Possible contamination per infectious disease 3. Recent prolonged hospitalization for CHF and pneumonia 4. Recent abdominal hematoma secondary to heparin drip 5. History of Acute kidney injury 6. History of CVA 7. History of diabetes mellitus type 2 8. History of rheumatoid arthritis 9. Essential hypertension 10. Lower extremity DVTs. Status post IVC filter placement 11/14/2021. 11. Sinus tachycardia with heart rate in the 150s. Cardiology consult placed 12. Elevated troponin. Telemetry ordered and patient transfer to higher level care selective care unit Patient maintained on IV antibiotics Cardiology, pulmonary, infectious disease and hematology services are following Patient to be transferred to selective care unit Telemetry ordered
[2021-11-18] MEDS: FERROUS SULFATE 325 MG TAB PO SCH (19:53)
[2021-11-18] MEDS: MONTELUKAST 10 MG TAB PO SCH (19:53)
[2021-11-18 20:31] LABS: Glucose,Whole Blood 206 mg/dL (75-99)
--- NOTE | 2021-11-18 22:25 | PN ---
PROGRESS NOTE DATE OF SERVICE: 11/18/2021 REASON FOR FOLLOWUP: UTI and a question of pneumonia. INTERVAL HISTORY: The patient is afebrile. The patient is breathing more comfortably. The patient denies having any chest pain or shortness of breath. She did have a cough; not bringing up any sputum. No abdominal pain or diarrhea. PHYSICAL EXAMINATION: Her blood pressure is 120/70 with a pulse of 92, temperature 98.8. She is 93% on room air. General description is an elderly female lying in bed in no distress. Respiratory system: Unlabored breathing, decreased intensity of breath sounds. No wheeze. Heart S1, S2. Regular rate and rhythm. Abdomen soft, no tenderness. LABS: Hemoglobin is 7.9, white count 3.5. Creatinine 0.94. She did have elevated procalcitonin of 1.93. DIAGNOSTIC IMPRESSION AND PLAN: 1. Patient with VRE urinary tract infection that has been adequately treated. Will discontinue daptomycin. 2. Patient with shortness of breath and cough with evidence of multifocal infiltrate on x-ray, more likely cardiac etiology. Underlying pneumonia less likely but not entirely excluded in view of the elevated procalcitonin. We will add cefepime to cover for possible Gram-negative. Will obtain a sputum sample and narrow down antibiotic on the basis of those cultures. Continue with supportive care. MMODL / IJN: [id number] /
[2021-11-18] MEDS: CEFEPIME 2 GM in SODIUM CHLORIDE 0.9% 100 ML IVPB SCH (23:10)
[2021-11-19] MEDS: ALBUTEROL NEBULIZED 2.5 MG/3 ML INHALATION SCH ×6 (05:39→23:37)
[2021-11-19 06:05] LABS: Glucose,Whole Blood 92 mg/dL (75-99)
[2021-11-19] MEDS: INSULIN ASPART (NovoLOG) 100 UNIT/ML VIAL SQ SCH ×4 (06:06→20:29)
[2021-11-19] MEDS: LEVOTHYROXINE 25 MCG TAB PO SCH (06:08)
[2021-11-19 07:58] LABS: Anisocytosis Slight; Basophils % (A) 1 %; Eosinophils # (A) 0.1 k/uL (0-0.7); Eosinophils % (A) 2 %; HCT 24.5 % (34.0-46.0); HGB 7.4 gm/dL (11.4-16.0); Hypochromasia Marked; Lymphocytes # (A) 1.3 k/uL (1.0-4.8); Lymphocytes % (A) 48 %; MCH 30.6 pg (25.0-35.0); MCV 101.9 fL (80.0-100.0); Macrocytosis Slight; Mean Platelet Volume 7.8; Monocytes # (A) 0.2 k/uL (0-1.0); Monocytes % (A) 7 %; Neutrophils # (A) 1.1 k/uL (1.3-7.7); Neutrophils % (A) 39 %; Platelet Count 287 k/uL (150-450); RBC 2.41 m/uL (3.80-5.40); RDW 16.1 % (11.5-15.5); WBC 2.7 k/uL (3.8-10.6)
[2021-11-19 08:07] LABS: Calcium 7.7 mg/dL (8.4-10.2); Magnesium 1.2 mg/dL (1.6-2.3); Potassium 3.7 mmol/L (3.5-5.1)
[2021-11-19] MEDS ORDERED: FUROSEMIDE 10 MG/ML 4 ML VIAL IV SCH (09:00)
[2021-11-19] MEDS: ENOXAPARIN 40 MG/0.4 ML SYRINGE SQ SCH (09:53)
[2021-11-19] MEDS: ACETAMINOPHEN TAB 325 MG TAB PO PRN (09:53)
[2021-11-19] MEDS: DICLOFENAC SODIUM GEL 100 GM TUBE TOPICAL SCH ×4 (09:54→22:56)
[2021-11-19] MEDS: PANTOPRAZOLE 40 MG/10 ML VIAL IV SCH (09:55)
[2021-11-19] MEDS: DOCUSATE 100 MG CAP PO SCH ×2 (09:55→20:29)
[2021-11-19] MEDS: EZETIMIBE 10 MG TAB PO SCH (09:55)
[2021-11-19] MEDS: OXYBUTYNIN 10 MG TAB.ER.24 PO SCH (09:55)
[2021-11-19] MEDS: CHOLECALCIFEROL 25 MCG (1000 IU) TABLET PO SCH (09:55)
[2021-11-19] MEDS: amLODIPine 10 MG TAB PO SCH (09:56)
[2021-11-19] MEDS: predniSONE 5 MG TAB PO SCH (09:56)
[2021-11-19] MEDS: METOPROLOL SUCCINATE (ER) 25 MG TAB.ER.24H PO SCH (09:56)
[2021-11-19] MEDS: CEFEPIME 2 GM in SODIUM CHLORIDE 0.9% 100 ML IVPB SCH ×2 (10:01→20:29)
[2021-11-19 11:35] LABS: Glucose,Whole Blood 127 mg/dL (75-99)
[2021-11-19] MEDS ORDERED: Magnesium Replacement Protocol 1 EACH MISC MISCELLANE PRN (12:44)
--- NOTE | 2021-11-19 12:45 | P.PN ---
Subjective HISTORY OF PRESENT ILLNESS This is a 75-year-old female admitted from [facility] on November 09 for fever and UTI and sepsis, bilateral lower extremity DVT with history of recent abdominal hematoma secondary to heparin drip status post IVC filter on 11/14/21, asthma, hyperlipidemia, hypertension, acute kidney injury, asthma, history of CVA. She gives history of TIA in 2016 on Plavix for this. Her apprenticeship representative is Dr. Roman. Patient is also been treated for anemia status post 2 units of packed RBCs. Patient was seen by cardiology in 10/2021 for elevated troponin, which was likely due to hypertension emergency at that time. On 11/17/21- A-Team was called for shortness of breath patient was found to be tachycardic at 150 bpm and thus cardiology consult was requested. Patient states that she suddenly became more short of breath. EKG was sinus tachycardia with nonspecific ST changes. Chest x-ray 11/17 revealed worsening bilateral multifocal opacities. Suspect: covid 19 infection and/or infiltrates and current environment. Alveolar and interstitial edema related to CHF exacerbation less likely. 11/19/2021 Patient seen at bedside, no acute distress. She states her breathing has improved. Has a cough. Denies shortness of breath. Denies chest pain. She is maintaining sinus mechanism. Patient with 1725mL urine output over the past 24 hours. Echocardiogram revealed EF of 4550% Laboratory reviewed, sodium 137, potassium 3.7, BUN 31, serum creatinine 1.0, magnesium 1.2 She's currently maintained on IV Lasix 40 mg daily, amlodipine 10 mg daily, metoprolol succinate 25 mg daily PHYSICAL EXAMINATION Gen: This is a obese female, resting in bed and appears to be comfortable and in no acute distress. No respiratory distress noted. Vitals reviewed HEENT: Head is atraumatic, normocephalic. Pupils equal, round. Sclerae is anicteric. NECK: Supple. No JVD. No lymphadenopathy. No thyromegaly. LUNGS: Diminished at the bilateral bases. No intercostal retractions. HEART: Regular rate and rhythm. No murmur. ABDOMEN: Soft. Bowel sounds are present. No masses. No tenderness. EXTREMITIES: No pedal edema. No calf tenderness. NEUROLOGICAL: Patient is awake, alert and oriented x3. ASSESSMENT Acute on chronic diastolic heart failure Sinus tachycardia Elevated troponin, likely type II event Hypertension Hyperlipidemia Abdominal hematoma status post [place] filter Bilateral lower extremity DVT s/p IV filter 11/14/2021 Fever Urinary tract infection Hypomagnesemia PLAN Replace magnesium per protocol Transition to PO Lasix 60mg daily Monitor renal function and electrolytes Monitor I/Os daily weights Continue home cardiac medications From cardiology perspective, patient is stable on current medical regimen. We will follow the patient as needed. Please reconsult if needed. Nurse practitioner note has been reviewed, I agree with documented findings and plan of care. Patient was seen and examined. Objective - Vital Signs Vital signs: Vital Signs Temp 99.3 F 11/19/21 09:30 Pulse 86 11/19/21 11:57 Resp 18 11/19/21 09:30 BP 119/55 11/19/21 09:30 Pulse Ox 96 11/19/21 09:30 Intake & Output 11/18/21 11/19/21 11/19/21 18:59 06:59 18:59 Intake Total 1200 100 350 Output Total 700 1025 700 Balance 500 -925 -350 Weight 135 kg Intake: Intake, IV Titration 100 Amount Cefepime 2 gm In Sodium 100 Chloride 0.9% 100 ml @ 25 mls/hr IVPB Q12H [facility] Rx# :[id number] Oral 1200 350 Output: Urine 700 1025 700 Other: Voiding Method Indwelling Catheter Indwelling Catheter Indwelling Catheter # Bowel Movements 3 - Labs CBC & Chem 7: 11/19/21 07:40 11/19/21 07:40 Labs: Abnormal Lab Results - Last 24 Hours (Table) 11/18/21 11/18/21 11/18/21 Range/Units 08:02 16:45 20:27 WBC (3.8-10.6) k/uL RBC (3.80-5.40) m/uL Hgb (11.4-16.0) gm/dL Hct (34.0-46.0) % MCV (80.0-100.0) fL MCHC (31.0-37.0) g/dL RDW (11.5-15.5) % Neutrophils # (1.3-7.7) k/uL BUN (7-17) mg/dL Glucose (74-99) mg/dL POC Glucose (mg/dL) 262 H 206 H (75-99) mg/dL Calcium (8.4-10.2) mg/dL Magnesium (1.6-2.3) mg/dL Procalcitonin 1.93 H (0.02-0.09) ng/mL 11/19/21 11/19/21 11/19/21 Range/Units 07:40 07:40 11:31 WBC 2.7 L (3.8-10.6) k/uL RBC 2.41 L (3.80-5.40) m/uL Hgb 7.4 L (11.4-16.0) gm/dL Hct 24.5 L (34.0-46.0) % MCV 101.9 H (80.0-100.0) fL MCHC 30.0 L (31.0-37.0) g/dL RDW 16.1 H (11.5-15.5) % Neutrophils # 1.1 L (1.3-7.7) k/uL BUN 31 H (7-17) mg/dL Glucose 105 H (74-99) mg/dL POC Glucose (mg/dL) 127 H (75-99) mg/dL Calcium 7.7 L (8.4-10.2) mg/dL Magnesium 1.2 L (1.6-2.3) mg/dL Procalcitonin (0.02-0.09) ng/mL
[2021-11-19] MEDS: MAGNESIUM SULFATE-D5W PMX 1 GM in DEXTROSE/WATER 1 100ML.BAG IVPB SCH ×3 (13:24→19:26)
--- NOTE | 2021-11-19 16:48 | P.PN ---
Subjective Progress Note Date: 11/19/21 Principal diagnosis: Recent hemoatoma on heparin, acute BLE DVT. IgG kappa paraproteinemia In f/u today pt is feeling ok, no new c/o. She had IVC placed, no bleeding. We discussed diagnosis of multiple myeloma yesterday, pending 24 hour urine and bone survey. Pt denies unusual bone pain Objective - Vital Signs Vital signs: Vital Signs Temp 98.4 F 11/19/21 13:25 Pulse 98 11/19/21 13:25 Resp 17 11/19/21 13:25 BP 106/58 11/19/21 13:25 Pulse Ox 93 L 11/19/21 13:25 Intake & Output 11/18/21 11/19/21 11/19/21 18:59 06:59 18:59 Intake Total 1200 100 586 Output Total 700 1025 700 Balance 500 -925 -114 Weight 135 kg Intake: Intake, IV Titration 100 Amount Cefepime 2 gm In Sodium 100 Chloride 0.9% 100 ml @ 25 mls/hr IVPB Q12H [facility] Rx# :[id number] Oral 1200 586 Output: Urine 700 1025 700 Other: Voiding Method Indwelling Catheter Indwelling Catheter Indwelling Catheter # Bowel Movements 3 - Constitutional General appearance: Present: cooperative, morbidly obese, no acute distress - EENT Eyes: Present: anicteric sclerae, EOMI ENT: Present: hearing grossly normal - Musculoskeletal Musculoskeletal: Present: generalized weakness - Psychiatric Psychiatric: Present: A&O x's 3, appropriate affect, intact judgment & insight - Labs CBC & Chem 7: 11/19/21 07:40 11/19/21 07:40 Labs: Abnormal Lab Results - Last 24 Hours (Table) 11/16/21 11/18/21 11/18/21 Range/Units 09:47 08:02 16:45 WBC (3.8-10.6) k/uL RBC (3.80-5.40) m/uL Hgb (11.4-16.0) gm/dL Hct (34.0-46.0) % MCV (80.0-100.0) fL MCHC (31.0-37.0) g/dL RDW (11.5-15.5) % Neutrophils # (1.3-7.7) k/uL BUN (7-17) mg/dL Glucose (74-99) mg/dL POC Glucose (mg/dL) 262 H (75-99) mg/dL Calcium (8.4-10.2) mg/dL Magnesium (1.6-2.3) mg/dL Erythropoietin 66.92 H (2.00-30.00) mIU/mL Procalcitonin 1.93 H (0.02-0.09) ng/mL 11/18/21 11/19/21 11/19/21 Range/Units 20:27 07:40 07:40 WBC 2.7 L (3.8-10.6) k/uL RBC 2.41 L (3.80-5.40) m/uL Hgb 7.4 L (11.4-16.0) gm/dL Hct 24.5 L (34.0-46.0) % MCV 101.9 H (80.0-100.0) fL MCHC 30.0 L (31.0-37.0) g/dL RDW 16.1 H (11.5-15.5) % Neutrophils # 1.1 L (1.3-7.7) k/uL BUN 31 H (7-17) mg/dL Glucose 105 H (74-99) mg/dL POC Glucose (mg/dL) 206 H (75-99) mg/dL Calcium 7.7 L (8.4-10.2) mg/dL Magnesium 1.2 L (1.6-2.3) mg/dL Erythropoietin (2.00-30.00) mIU/mL Procalcitonin (0.02-0.09) ng/mL 11/19/21 Range/Units 11:31 WBC (3.8-10.6) k/uL RBC (3.80-5.40) m/uL Hgb (11.4-16.0) gm/dL Hct (34.0-46.0) % MCV (80.0-100.0) fL MCHC (31.0-37.0) g/dL RDW (11.5-15.5) % Neutrophils # (1.3-7.7) k/uL BUN (7-17) mg/dL Glucose (74-99) mg/dL POC Glucose (mg/dL) 127 H (75-99) mg/dL Calcium (8.4-10.2) mg/dL Magnesium (1.6-2.3) mg/dL Erythropoietin (2.00-30.00) mIU/mL Procalcitonin (0.02-0.09) ng/mL Assessment and Plan (1) DVT (deep venous thrombosis) Narrative/Plan: BLE DVT, acute. S/P IVC filter placement. Cont to hold anticoagulation for recent bleeding CT AP reveals a decrease in previous hematoma. May consider f/u image to near resolution in a few months Current Visit: Yes Status: Acute Priority: High Code(s): I82.409 - ACUTE EMBOLISM AND THOMBOS UNSP DEEP VN UNSP LOWER EXTREMITY SNOMED Code(s): 890976983 (2) Anemia Narrative/Plan: On chart review she was noted to be significantly anemic around February 2021. She is also noted to have an increase in her creatinine at that time as well. Her Hgb was in the 8 range on DC in Oct. It was 8 range this admit. She has required 2 units since admit. Hgb remains in the 7 range at this time. Transfuse for Hgb <7. Epo level elevated. Pt would need iron supplementation before being considered for SANDRA therapy. Admitted with UTI/sepsis, will plan for parenteral iron supplementation when appropriate. Current Visit: Yes Status: Acute Priority: High Code(s): D64.9 - ANEMIA, UNSPECIFIED SNOMED Code(s): 872994886 (3) IgG monoclonal gammopathy Narrative/Plan: IgG [place] paraproteinemia 1.25g/dl. Pt meets CRAB criteria with anemia, renal failure. Otherwise, Calcium is low/near normal. Ordered bone survey to evaluate for myeloma lesions. Will await additional studies then will discuss if treatment is necessary or if observation is reasonable. 24 hour urine for light chains, PEP ordered The above was discussed with pt. She verbalized understanding the plan. Current Visit: Yes Status: Acute Priority: High Code(s): D47.2 - MONOCLONAL GAMMOPATHY SNOMED Code(s): 997788443
[2021-11-19 17:16] LABS: Glucose,Whole Blood 222 mg/dL (75-99)
[2021-11-19 20:04] LABS: Glucose,Whole Blood 210 mg/dL (75-99)
--- NOTE | 2021-11-19 20:05 | PN ---
PROGRESS NOTE DATE OF SERVICE: 11/19/2021 REASON FOR FOLLOWUP: 1. Pneumonia. 2. UTI. INTERVAL HISTORY: The patient is afebrile. The patient is breathing slightly comfortably. She is currently on room air. The patient denies having any chest pain. She mentioned she did have a cough and bringing up some sputum. Sputum cultures were requested yesterday and currently have been collected. The denies having any abdominal pain or diarrhea. PHYSICAL EXAMINATION: Blood pressure 125/60 with a pulse of 90, temperature 98.7. She is 96% on room air. General description is an elderly female lying in bed in no distress. Respiratory system: Unlabored breathing, decreased intensity of breath sounds. No wheeze. Heart S1, S2. Regular rate and rhythm. Abdomen soft, no tenderness. LABS: Hemoglobin 7.4, white count with 2.7. Creatinine is 1.0. DIAGNOSTIC IMPRESSION AND PLAN: 1. Patient with VRE urinary tract infection that has been adequately treated. 2. Patient with possible Gram-negative pneumonia, clinically responding to cefepime. We will follow up on the sputum culture and adjust antibiotic further if needed. Continue with supportive care. MMODL / IJN: [id number] /
[2021-11-19] MEDS: FERROUS SULFATE 325 MG TAB PO SCH (20:29)
[2021-11-19] MEDS: MONTELUKAST 10 MG TAB PO SCH (20:29)
[2021-11-19 21:49] LABS: Total Protein 24 Hour,Urine 366 mg/24hr (42.0-225.0); Total Volume 24 Hour,Urine 2150 mls (250-2400)
[2021-11-20] MEDS: ALBUTEROL NEBULIZED 2.5 MG/3 ML INHALATION SCH ×5 (03:25→19:20)
[2021-11-20 06:20] LABS: Glucose,Whole Blood 95 mg/dL (75-99)
[2021-11-20] MEDS: INSULIN ASPART (NovoLOG) 100 UNIT/ML VIAL SQ SCH ×4 (06:20→23:15)
[2021-11-20] MEDS: LEVOTHYROXINE 25 MCG TAB PO SCH (06:20)
--- NOTE | 2021-11-20 06:58 | XR ---
EXAMINATION TYPE: XR bone survey complete DATE OF EXAM: 11/19/2021 COMPARISON: CT abdomen and pelvis November 13, 2021. Chest x-ray November 17, 2021. CT brain March 23, 2020 HISTORY: Multiple myeloma. Bony calvarium : 2 views of the bony calvarium redemonstrate hyperostosis without definitive suspicio us lucent lesion. Moderate calcified plaque left carotid bulb. Spine: Two views of the cervical, thoracic and lumbar spines are submitted. Images of the spine show moderate multilevel spurring. No definitive suspicious lytic lesion identified. New IVC filter overl ies L2-L3 vertebra on current study. Lateral view slightly suboptimal due to large body habitus. PELVIS: Single view of the pelvis demonstrates mild narrowing and mild to moderate spurring bilatera l hip joints. Overlying surgical clips and calcified fibroids redemonstrated. No definitive new suspi cious lytic lesion seen. Chest x-ray: No definitive new suspicious focal lytic lesion. Stable mild cardiomegaly and chronic pa renchymal changes. Overlying EKG leads. UPPER EXTREMITIES: Two views of the upper extremities show some demineralization without definitive s uspicious focal lytic lesions seen. Some spurring bilateral elbow joints is noted. LOWER EXTREMITIES: 2 views of the lower extremities show no definitive suspicious focal lytic lesion. Fairly severe degenerative changes bilateral knees with narrowing and spurring is present. IMPRESSION: No definitive suspicious lytic osseous lesions identified.
[2021-11-20 09:14] LABS: Calcium 7.7 mg/dL (8.4-10.2); Total Bilirubin 0.8 mg/dL (0.2-1.3); Total Protein 5.4 g/dL (6.3-8.2)
[2021-11-20 09:37] LABS: Anisocytosis Slight; Basophils % (A) 1 %; Eosinophils % (A) 2 %; HCT 22.6 % (34.0-46.0); Hypochromasia Marked; Lymphocytes # (A) 1.1 k/uL (1.0-4.8); Lymphocytes % (A) 47 %; MCH 30.5 pg (25.0-35.0); MCHC 30.4 g/dL (31.0-37.0); MCV 100.2 fL (80.0-100.0); Macrocytosis Slight; Mean Platelet Volume 8.7; Monocytes # (A) 0.2 k/uL (0-1.0); Monocytes % (A) 8 %; Neutrophils % (A) 39 %; Platelet Count 293 k/uL (150-450); RBC 2.25 m/uL (3.80-5.40); RDW 16.9 % (11.5-15.5); WBC 2.4 k/uL (3.8-10.6)
[2021-11-20 09:41] LABS: HGB 6.9 gm/dL (11.4-16.0)
[2021-11-20 09:42] LABS: Neutrophils # (A) 0.9 k/uL (1.3-7.7)
--- NOTE | 2021-11-20 10:22 | P.PN ---
Subjective Progress Note Date: 11/19/21 I am starting care for this patient on 11/11/2020, Dr Muhammad was covering for me This is an 75-year-old female patient who initially presented to the ER with concerns of fever [facility]. Patient was positive for urinary tract infection. COVID-19 was negative. Patient had recent prolonged hospitalization for acute CHF Exacerbation and right lower lobe pneumonia. During that hospitalization patient was maintained on heparin drip for possible non-ST elevated [place] and developed secondary abdominal wall hematoma. Patient to cooperate 2 units are PRBCs. Patient also had secondary acute kidney injury and urinary retention. Urine culture positive for group D enterococcus and blood culture positive for staphylococcus epidermis. Patient has been started on IV antibiotics. Infectious disease services were consulted. On 11/11/2021 patient's alert and oriented 3 resting comfortably in bed. Patient remains on IV antibiotics. Patient still having elevated temps. At this time patient denies chest pain or shortness of breath. Diarrhea. Patient denies any urinary burning or frequency On 11/12/2021 patient was seen and examined on the medical floor she is alert and oriented 3 in no apparent distress she had elevated d-dimer lower extremity Doppler revealed bilateral lower extremity DVT she was started on full therapeutic dose of Lovenox this morning her hemoglobin was down to 6.8 she received 1 unit of red blood cell transfusion otherwise she continues to be on IV antibiotics she denies any complaints at this time On 11/13/2009 to patient's alert and oriented 3. She will globin improving to 7.9 status post 1 unit of PRBCs. Definitive plans for IVC filter. Hematology and vascular surgery following. Patient remains on IV antibiotics. At that t verena patient denies chest pain.. Patient denies shortness breath. Patient denies nausea vomiting or diarrhea. Patient denies any urinary burning or frequency On 11/14/2021. Patient's alert and oriented 3. Patient to undergo IVC filter today. On 11/15/2021 status post IVC filter. Patient is currently sitting up in chair. Patient alert and oriented 3. Patient remains on subcu Lovenox 100 every 12 hours. hgb 6.9. 1 unit PRBCs have been ordered. Patient remains on IV daptomycin. Patient complaining of hip pain which apparently is chronic for her order additional pain medication. Patient denies chest pain or shortness breath. Patient. Patient denies any urinary burning or frequency On 11/16/2021 patient was seen and examined on the medical floor, she is complaining of pain in the right hip area otherwise she denies any complaints there is no fever or chills no headache or dizziness no chest pain no shortness of breath no cough no nausea or vomiting no abdominal pain no diarrhea no blood in the stools no burning with urination no frequency or urgency and no hematuria. Hemoglobin is stable today at 8.3. Per Dr. Wang with recommendation, full dose Lovenox was discontinued yesterday, she will be started on Lovenox 40 mg subcu daily today, will check x-ray of the right hip, patient was given Voltaren gel to the right hip per her request On 11/17/2021 patient is alert and oriented 3. Patient had episode of elevated heart rate in the 150s. A team was called. Patient also currently getting treated for pneumonia. At this time will transfer patient to cardiac stepdown unit. Telemetry ordered. Stat labs ordered. Cardiology consult in place. Patient reports improvement. Patient denies chest pain. At this time cardiology, pulmonary, infectious disease and hematology services are following. On 11/18/2021 patient was seen and examined on the medical floor she is alert and oriented 3 in no apparent distress there is no fever or chills no headache or dizziness no chest pain no shortness of breath no cough no nausea or vomiting no abdominal pain no diarrhea no blood in the stools will burning with urination no frequency or urgency no hematuria. Hemoglobin is stable at 7.8. Input from multiple specialists review, patient will be restarted on Lovenox at 40 mg subcu once daily, will continue to follow closely. On 11/19/2021 patient is alert and oriented 3. Hemoglobin today 7.4. Heart rate improved. Patient denies chest pain or shortness breath. Patient denies nausea vomiting or diarrhea. Patient denies any urinary burning or frequency. Objective - Vital Signs Vital signs: Vital Signs Temp 98.7 F 11/19/21 17:04 Pulse 84 11/19/21 19:36 Resp 18 11/19/21 17:04 BP 125/60 11/19/21 17:04 Pulse Ox 98 11/19/21 19:29 Intake & Output 11/19/21 11/19/21 11/20/21 06:59 18:59 06:59 Intake Total 100 826 Output Total 1025 700 Balance -925 126 Intake: Intake, IV Titration 100 Amount Cefepime 2 gm In Sodium 100 Chloride 0.9% 100 ml @ 25 mls/hr IVPB Q12H [facility] Rx# :[id number] Oral 826 Output: Urine 1025 700 Other: Voiding Method Indwelling Catheter Indwelling Catheter - Exam Head normocephalic Neck supple Lungs clear to auscultation bilaterally no wheezing or crackles Heart regular rate and rhythm S1-S2, no rub or gallop Abdomen is soft nontender nondistended positive bowel sounds no hepatosplenomegaly Extremities no edema Neuro alert and orientated to 3 - Labs CBC & Chem 7: 11/20/21 07:17 11/20/21 07:17 Labs: Abnormal Lab Results - Last 24 Hours (Table) 11/16/21 11/18/21 11/19/21 Range/Units 09:47 20:27 07:40 WBC 2.7 L (3.8-10.6) k/uL RBC 2.41 L (3.80-5.40) m/uL Hgb 7.4 L (11.4-16.0) gm/dL Hct 24.5 L (34.0-46.0) % MCV 101.9 H (80.0-100.0) fL MCHC 30.0 L (31.0-37.0) g/dL RDW 16.1 H (11.5-15.5) % Neutrophils # 1.1 L (1.3-7.7) k/uL BUN (7-17) mg/dL Glucose (74-99) mg/dL POC Glucose (mg/dL) 206 H (75-99) mg/dL Calcium (8.4-10.2) mg/dL Magnesium (1.6-2.3) mg/dL Erythropoietin 66.92 H (2.00-30.00) mIU/mL 11/19/21 11/19/21 11/19/21 Range/Units 07:40 11:31 17:05 WBC (3.8-10.6) k/uL RBC (3.80-5.40) m/uL Hgb (11.4-16.0) gm/dL Hct (34.0-46.0) % MCV (80.0-100.0) fL MCHC (31.0-37.0) g/dL RDW (11.5-15.5) % Neutrophils # (1.3-7.7) k/uL BUN 31 H (7-17) mg/dL Glucose 105 H (74-99) mg/dL POC Glucose (mg/dL) 127 H 222 H (75-99) mg/dL Calcium 7.7 L (8.4-10.2) mg/dL Magnesium 1.2 L (1.6-2.3) mg/dL Erythropoietin (2.00-30.00) mIU/mL Microbiology - Last 24 Hours (Table) 11/19/21 11:52 Sputum Culture - Preliminary Sputum Assessment and Plan Assessment: 1. Fever secondary to urinary tract infection with sepsis 2. Positive blood culture. Possible contamination per infectious disease 3. Recent prolonged hospitalization for CHF and pneumonia 4. Recent abdominal hematoma secondary to heparin drip 5. History of Acute kidney injury 6. History of CVA 7. History of diabetes mellitus type 2 8. History of rheumatoid arthritis 9. Essential hypertension 10. Lower extremity DVTs. Status post IVC filter placement 11/14/2021. 11. Sinus tachycardia with heart rate in the 150s. Cardiology consult placed 12. Elevated troponin. Telemetry ordered and patient transfer to higher level care selective care unit 13. Pneumonia. Infectious disease services are following patient remains on cefepime Patient maintained on IV antibiotics Cardiology, pulmonary, infectious disease and hematology services are following Repeat labs ordered
--- NOTE | 2021-11-20 10:25 | P.PN ---
Subjective Progress Note Date: 11/20/21 I am starting care for this patient on 11/11/2020, Dr Muhammad was covering for me This is an 75-year-old female patient who initially presented to the ER with concerns of fever from [facility] facility. Patient was positive for urinary tract infection. COVID-19 was negative. Patient had recent prolonged hospitalization for acute CHF Exacerbation and right lower lobe pneumonia. During that hospitalization patient was maintained on heparin drip for possible non-ST elevated [place] and developed secondary abdominal wall hematoma. Patient to cooperate 2 units are PRBCs. Patient also had secondary acute kidney injury and urinary retention. Urine culture positive for group D enterococcus and blood culture positive for staphylococcus epidermis. Patient has been started on IV antibiotics. Infectious disease services were consulted. On 11/11/2021 patient's alert and oriented 3 resting comfortably in bed. Patient remains on IV antibiotics. Patient still having elevated temps. At this time patient denies chest pain or shortness of breath. Diarrhea. Patient denies any urinary burning or frequency On 11/12/2021 patient was seen and examined on the medical floor she is alert and oriented 3 in no apparent distress she had elevated d-dimer lower extremity Doppler revealed bilateral lower extremity DVT she was started on full therapeutic dose of Lovenox this morning her hemoglobin was down to 6.8 she received 1 unit of red blood cell transfusion otherwise she continues to be on IV antibiotics she denies any complaints at this time On 11/13/2009 to patient's alert and oriented 3. She will globin improving to 7.9 status post 1 unit of PRBCs. Definitive plans for IVC filter. Hematology and vascular surgery following. Patient remains on IV antibiotics. At that t verena patient denies chest pain.. Patient denies shortness breath. Patient denies nausea vomiting or diarrhea. Patient denies any urinary burning or frequency On 11/14/2021. Patient's alert and oriented 3. Patient to undergo IVC filter today. On 11/15/2021 status post IVC filter. Patient is currently sitting up in chair. Patient alert and oriented 3. Patient remains on subcu Lovenox 100 every 12 hours. hgb 6.9. 1 unit PRBCs have been ordered. Patient remains on IV daptomycin. Patient complaining of hip pain which apparently is chronic for her order additional pain medication. Patient denies chest pain or shortness breath. Patient. Patient denies any urinary burning or frequency On 11/16/2021 patient was seen and examined on the medical floor, she is complaining of pain in the right hip area otherwise she denies any complaints there is no fever or chills no headache or dizziness no chest pain no shortness of breath no cough no nausea or vomiting no abdominal pain no diarrhea no blood in the stools no burning with urination no frequency or urgency and no hematuria. Hemoglobin is stable today at 8.3. Per Dr. Wang with recommendation, full dose Lovenox was discontinued yesterday, she will be started on Lovenox 40 mg subcu daily today, will check x-ray of the right hip, patient was given Voltaren gel to the right hip per her request On 11/17/2021 patient is alert and oriented 3. Patient had episode of elevated heart rate in the 150s. A team was called. Patient also currently getting treated for pneumonia. At this time will transfer patient to cardiac stepdown unit. Telemetry ordered. Stat labs ordered. Cardiology consult in place. Patient reports improvement. Patient denies chest pain. At this time cardiology, pulmonary, infectious disease and hematology services are following. On 11/18/2021 patient was seen and examined on the medical floor she is alert and oriented 3 in no apparent distress there is no fever or chills no headache or dizziness no chest pain no shortness of breath no cough no nausea or vomiting no abdominal pain no diarrhea no blood in the stools will burning with urination no frequency or urgency no hematuria. Hemoglobin is stable at 7.8. Input from multiple specialists review, patient will be restarted on Lovenox at 40 mg subcu once daily, will continue to follow closely. On 11/19/2021 patient is alert and oriented 3. Hemoglobin today 7.4. Heart rate improved. Patient denies chest pain or shortness breath. Patient denies nausea vomiting or diarrhea. Patient denies any urinary burning or frequency. On 11/20/2021 patient's alert and oriented 3. Hgb 6.9. Bone survey and 24- hour urine ordered per hematology services to rule out multiple myeloma. Patient denies chest pain or shortness of breath. Patient denies nausea vomiting or diarrhea. Patient denies any urinary burning or frequency. Patient has been transitioned to by mouth Lasix. Objective - Vital Signs Vital signs: Vital Signs Temp 98.6 F 11/20/21 08:56 Pulse 95 11/20/21 08:56 Resp 19 11/20/21 08:56 BP 116/63 11/20/21 08:56 Pulse Ox 94 L 11/20/21 08:56 Intake & Output 11/19/21 11/20/21 11/20/21 18:59 06:59 18:59 Intake Total 826 Output Total 700 0 Balance 126 0 Intake: Oral 826 Output: Urine 700 Stool 0 Other: Voiding Method Indwelling Catheter Indwelling Catheter Indwelling Catheter - Exam Head normocephalic Neck supple Lungs clear to auscultation bilaterally no wheezing or crackles Heart regular rate and rhythm S1-S2, no rub or gallop Abdomen is soft nontender nondistended positive bowel sounds no hepatosplenomegaly Extremities no edema Neuro alert and orientated to 3 - Labs CBC & Chem 7: 11/20/21 07:17 11/20/21 07:17 Labs: Abnormal Lab Results - Last 24 Hours (Table) 11/16/21 11/19/21 11/19/21 Range/Units 09:47 11:31 15:00 WBC (3.8-10.6) k/uL RBC (3.80-5.40) m/uL Hgb (11.4-16.0) gm/dL Hct (34.0-46.0) % MCV (80.0-100.0) fL MCHC (31.0-37.0) g/dL RDW (11.5-15.5) % Neutrophils # (1.3-7.7) k/uL Sodium (137-145) mmol/L BUN (7-17) mg/dL POC Glucose (mg/dL) 127 H (75-99) mg/dL Calcium (8.4-10.2) mg/dL Erythropoietin 66.92 H (2.00-30.00) mIU/mL Total Protein (6.3-8.2) g/dL Albumin (3.5-5.0) g/dL U Tot Protein 24h, Calc 366 H (42.0-225.0) mg/24hr 11/19/21 11/19/21 11/20/21 Range/Units 17:05 20:02 07:17 WBC 2.4 L (3.8-10.6) k/uL RBC 2.25 L (3.80-5.40) m/uL Hgb 6.9 L* (11.4-16.0) gm/dL Hct 22.6 L (34.0-46.0) % MCV 100.2 H (80.0-100.0) fL MCHC 30.4 L (31.0-37.0) g/dL RDW 16.9 H (11.5-15.5) % Neutrophils # 0.9 L (1.3-7.7) k/uL Sodium (137-145) mmol/L BUN (7-17) mg/dL POC Glucose (mg/dL) 222 H 210 H (75-99) mg/dL Calcium (8.4-10.2) mg/dL Erythropoietin (2.00-30.00) mIU/mL Total Protein (6.3-8.2) g/dL Albumin (3.5-5.0) g/dL U Tot Protein 24h, Calc (42.0-225.0) mg/24hr 11/20/21 Range/Units 07:17 WBC (3.8-10.6) k/uL RBC (3.80-5.40) m/uL Hgb (11.4-16.0) gm/dL Hct (34.0-46.0) % MCV (80.0-100.0) fL MCHC (31.0-37.0) g/dL RDW (11.5-15.5) % Neutrophils # (1.3-7.7) k/uL Sodium 135 L (137-145) mmol/L BUN 32 H (7-17) mg/dL POC Glucose (mg/dL) (75-99) mg/dL Calcium 7.7 L (8.4-10.2) mg/dL Erythropoietin (2.00-30.00) mIU/mL Total Protein 5.4 L (6.3-8.2) g/dL Albumin 2.0 L (3.5-5.0) g/dL U Tot Protein 24h, Calc (42.0-225.0) mg/24hr Microbiology - Last 24 Hours (Table) 11/19/21 11:52 Gram Stain - Final Sputum Sputum Culture - Final Assessment and Plan Assessment: 1. Fever secondary to urinary tract infection with sepsis 2. Positive blood culture. Possible contamination per infectious disease 3. Recent prolonged hospitalization for CHF and pneumonia 4. Recent abdominal hematoma secondary to heparin drip 5. History of Acute kidney injury 6. History of CVA 7. History of diabetes mellitus type 2 8. History of rheumatoid arthritis 9. Essential hypertension 10. Lower extremity DVTs. Status post IVC filter placement 11/14/2021. 11. Sinus tachycardia with heart rate in the 150s. Cardiology consult placed 12. Elevated troponin. Telemetry ordered and patient transfer to higher level care selective care unit 13. Pneumonia. Infectious disease services are following patient remains on cefepime Patient maintained on IV antibiotics Cardiology, pulmonary, infectious disease and hematology services are following Bone survey and 24-hour urine ordered per hematology services Repeat labs ordered
[2021-11-20] MEDS: CEFEPIME 2 GM in SODIUM CHLORIDE 0.9% 100 ML IVPB SCH ×2 (10:34→23:16)
[2021-11-20] MEDS: amLODIPine 10 MG TAB PO SCH (10:35)
[2021-11-20] MEDS: OXYBUTYNIN 10 MG TAB.ER.24 PO SCH (10:35)
[2021-11-20] MEDS: FUROSEMIDE 20 MG TAB PO SCH (10:35)
[2021-11-20] MEDS: ENOXAPARIN 40 MG/0.4 ML SYRINGE SQ SCH (10:35)
[2021-11-20] MEDS: predniSONE 5 MG TAB PO SCH (10:35)
[2021-11-20] MEDS: EZETIMIBE 10 MG TAB PO SCH (10:36)
[2021-11-20] MEDS: DOCUSATE 100 MG CAP PO SCH ×2 (10:36→20:10)
[2021-11-20] MEDS: CHOLECALCIFEROL 25 MCG (1000 IU) TABLET PO SCH (10:36)
[2021-11-20] MEDS: METOPROLOL SUCCINATE (ER) 25 MG TAB.ER.24H PO SCH (10:36)
[2021-11-20] MEDS: DICLOFENAC SODIUM GEL 100 GM TUBE TOPICAL SCH ×4 (10:36→23:16)
[2021-11-20] MEDS: PANTOPRAZOLE 40 MG/10 ML VIAL IV SCH (10:37)
[2021-11-20 11:39] LABS: Glucose,Whole Blood 126 mg/dL (75-99)
[2021-11-20] MEDS ORDERED: DARBEPOETIN ALFA 40 MCG/0.4 ML SYRINGE SQ SCH (13:00)
[2021-11-20 14:11] VITALS: BMI 45.2
--- NOTE | 2021-11-20 14:37 | P.PN ---
Subjective Progress Note Date: 11/20/21 Principal diagnosis: Recent hemoatoma on heparin, acute BLE DVT. IgG kappa paraproteinemia. Anemia of CKD In f/u today pt is feeling ok, no new c/o Objective - Vital Signs Vital signs: Vital Signs Temp 98.6 F 11/20/21 08:56 Pulse 96 11/20/21 11:10 Resp 19 11/20/21 08:56 BP 116/63 11/20/21 08:56 Pulse Ox 94 L 11/20/21 08:56 Intake & Output 11/19/21 11/20/21 11/20/21 18:59 06:59 18:59 Intake Total 826 Output Total 700 0 Balance 126 0 Intake: Oral 826 Output: Urine 700 Stool 0 Other: Voiding Method Indwelling Catheter Indwelling Catheter Indwelling Catheter - Constitutional General appearance: Present: cooperative, morbidly obese, no acute distress - EENT Eyes: Present: anicteric sclerae, EOMI ENT: Present: hearing grossly normal - Respiratory Respiratory: bilateral: CTA - Cardiovascular Rhythm: regular Heart sounds: normal: S1, S2 Abnormal Heart Sounds: Absent: systolic murmur, diastolic murmur, rub, S3 Gallop, S4 Gallop, click, other - Gastrointestinal General gastrointestinal: Present: normal bowel sounds, soft - Integumentary Integumentary: Present: normal - Musculoskeletal Musculoskeletal: Present: generalized weakness - Psychiatric Psychiatric: Present: A&O x's 3, appropriate affect, intact judgment & insight - Labs CBC & Chem 7: 11/20/21 07:17 11/20/21 07:17 Labs: Abnormal Lab Results - Last 24 Hours (Table) 11/16/21 11/19/21 11/19/21 Range/Units 09:47 15:00 17:05 WBC (3.8-10.6) k/uL RBC (3.80-5.40) m/uL Hgb (11.4-16.0) gm/dL Hct (34.0-46.0) % MCV (80.0-100.0) fL MCHC (31.0-37.0) g/dL RDW (11.5-15.5) % Neutrophils # (1.3-7.7) k/uL Sodium (137-145) mmol/L BUN (7-17) mg/dL POC Glucose (mg/dL) 222 H (75-99) mg/dL Calcium (8.4-10.2) mg/dL Erythropoietin 66.92 H (2.00-30.00) mIU/mL Total Protein (6.3-8.2) g/dL Albumin (3.5-5.0) g/dL U Tot Protein 24h, Calc 366 H (42.0-225.0) mg/24hr 11/19/21 11/20/21 11/20/21 Range/Units 20:02 07:17 07:17 WBC 2.4 L (3.8-10.6) k/uL RBC 2.25 L (3.80-5.40) m/uL Hgb 6.9 L* (11.4-16.0) gm/dL Hct 22.6 L (34.0-46.0) % MCV 100.2 H (80.0-100.0) fL MCHC 30.4 L (31.0-37.0) g/dL RDW 16.9 H (11.5-15.5) % Neutrophils # 0.9 L (1.3-7.7) k/uL Sodium 135 L (137-145) mmol/L BUN 32 H (7-17) mg/dL POC Glucose (mg/dL) 210 H (75-99) mg/dL Calcium 7.7 L (8.4-10.2) mg/dL Erythropoietin (2.00-30.00) mIU/mL Total Protein 5.4 L (6.3-8.2) g/dL Albumin 2.0 L (3.5-5.0) g/dL U Tot Protein 24h, Calc (42.0-225.0) mg/24hr 11/20/21 Range/Units 11:38 WBC (3.8-10.6) k/uL RBC (3.80-5.40) m/uL Hgb (11.4-16.0) gm/dL Hct (34.0-46.0) % MCV (80.0-100.0) fL MCHC (31.0-37.0) g/dL RDW (11.5-15.5) % Neutrophils # (1.3-7.7) k/uL Sodium (137-145) mmol/L BUN (7-17) mg/dL POC Glucose (mg/dL) 126 H (75-99) mg/dL Calcium (8.4-10.2) mg/dL Erythropoietin (2.00-30.00) mIU/mL Total Protein (6.3-8.2) g/dL Albumin (3.5-5.0) g/dL U Tot Protein 24h, Calc (42.0-225.0) mg/24hr Microbiology - Last 24 Hours (Table) 11/19/21 11:52 Gram Stain - Final Sputum Sputum Culture - Final - Imaging and Cardiology bone survey report reviewed Assessment and Plan (1) DVT (deep venous thrombosis) Narrative/Plan: BLE DVT, acute. S/P IVC filter placement. Cont to hold anticoagulation for recent bleeding. Pt is on DVT prophylaxis CT AP reveals a decrease in previous hematoma. May consider f/u image to near resolution in a few months Current Visit: Yes Status: Acute Priority: High Code(s): I82.409 - ACUTE EMBOLISM AND THOMBOS UNSP DEEP VN UNSP LOWER EXTREMITY SNOMED Code(s): 338831982 (2) Anemia Narrative/Plan: On chart review she was noted to be significantly anemic around February 2021. She is also noted to have an increase in her creatinine at that time as well. Her Hgb was in the 8 range on DC in Oct. It was 8 range this admit. She has required 2 units since admit. Hgb remains in the 7 range at this time. Transf use for Hgb <7, 1 unit ordered by Attending for today, Hgb 6.8. Epo level elevated. Chart review-pt did receive 3 doses of parenteral iron around 10/21/21, she was also on oral iron. Recheck iron studies then can begin SANDRA therapy. Did discuss SANDRA with pt and she is agreeable to initiate therapy. SANDRA administered for Hgb <11 (anemia of CKD). Weekly CBC. Discussed with data analysis manager Current Visit: Yes Status: Acute Priority: High Code(s): D64.9 - ANEMIA, UNSPECIFIED SNOMED Code(s): 982254222 (3) IgG monoclonal gammopathy Narrative/Plan: IgG Bison paraproteinemia 1.25g/dl. Partial CRAB criteria met- anemia, renal failure. Otherwise, Calcium is low/near normal. Bone survey does not show any myeloma lesions. UPEP no specific protein identified. Clinical picture most consistent with MGUS. Recommend SANDRA for anemia. Monitoring of labs. The above was discussed with pt. She verbalized understanding the plan. Current Visit: Yes Status: Acute Priority: High Code(s): D47.2 - MONOCLONAL GAMMOPATHY SNOMED Code(s): 882864341
[2021-11-20 16:59] LABS: Glucose,Whole Blood 245 mg/dL (75-99)
[2021-11-20 19:09] LABS: % Iron Saturation 31.29 (12.00-45.00)
[2021-11-20] MEDS: MONTELUKAST 10 MG TAB PO SCH (20:09)
[2021-11-20] MEDS: FERROUS SULFATE 325 MG TAB PO SCH (20:10)
[2021-11-20] MEDS ORDERED: ALBUTEROL NEBULIZED 2.5 MG/3 ML INHALATION PRN (20:11)
[2021-11-20] MEDS: guaiFENesin SYRUP 100MG/5ML 200 MG/10 ML CUP PO PRN (20:11)
[2021-11-20 20:36] LABS: Glucose,Whole Blood 240 mg/dL (75-99)
--- NOTE | 2021-11-20 22:53 | PN ---
PROGRESS NOTE DATE OF SERVICE: 11/20/2021 REASON FOR FOLLOWUP: Pneumonia. INTERVAL HISTORY: The patient is afebrile. The patient is breathing more comfortably. The patient denies having any chest pain. She did have a cough, not bringing up any sputum. No abdominal pain or diarrhea. PHYSICAL EXAMINATION: Blood pressure is 96/51, pulse of 84, temperature 98.4. She is 95% on room air. General description is an elderly female lying in bed in no distress. Respiratory system: Unlabored breathing, decreased intensity of breath sounds. No wheeze. Heart S1, S2. Regular rate and rhythm. Abdomen soft. No guarding or rigidity. LABS: Hemoglobin is 6.9, white count 2.4. Creatinine 0.99. DIAGNOSTIC IMPRESSION AND PLAN: Patient admitted to hospital with initial concern for a VRE urinary tract infection that has been adequately treated. Urine is negative. Subsequently concerning for pneumonia, possibly Gram-negative, though sputum has been negative for any resistant pathogen. Patient is covered with cefepime; to continue. Hopefully transition to oral antibiotic on discharge. Continue with supportive care. MMODL / IJN: [id number] /
[2021-11-20 23:09] LABS: Anisocytosis Slight; Basophils % (A) 1 %; Eosinophils % (A) 1 %; HCT 33.3 % (34.0-46.0); Hypochromasia Marked; Lymphocytes # (A) 1.4 k/uL (1.0-4.8); Lymphocytes % (A) 40 %; MCH 29.2 pg (25.0-35.0); MCHC 30.1 g/dL (31.0-37.0); MCV 97.2 fL (80.0-100.0); Macrocytosis Slight; Mean Platelet Volume 7.9; Monocytes # (A) 0.2 k/uL (0-1.0); Monocytes % (A) 6 %; Neutrophils # (A) 1.7 k/uL (1.3-7.7); Neutrophils % (A) 50 %; Platelet Count 280 k/uL (150-450); RBC 3.42 m/uL (3.80-5.40); RDW 16.1 % (11.5-15.5); WBC 3.5 k/uL (3.8-10.6)
[2021-11-21] MEDS: INSULIN ASPART (NovoLOG) 100 UNIT/ML VIAL SQ SCH ×4 (06:19→20:35)
[2021-11-21 06:20] LABS: Glucose,Whole Blood 83 mg/dL (75-99)
[2021-11-21] MEDS: LEVOTHYROXINE 25 MCG TAB PO SCH (06:21)
[2021-11-21 08:23] LABS: Anisocytosis Slight; HCT 28.9 % (34.0-46.0); HGB 8.7 gm/dL (11.4-16.0); Hypochromasia Marked; MCH 30.2 pg (25.0-35.0); MCHC 30.1 g/dL (31.0-37.0); MCV 100.5 fL (80.0-100.0); Macrocytosis Slight; Mean Platelet Volume 7.7; Platelet Count 309 k/uL (150-450); Poikilocytosis Slight; RBC 2.87 m/uL (3.80-5.40); WBC 4.8 k/uL (3.8-10.6)
[2021-11-21] MEDS: ALBUTEROL NEBULIZED 2.5 MG/3 ML INHALATION SCH ×4 (08:33→19:05)
[2021-11-21 08:48] LABS: Albumin 2.2 g/dL (3.5-5.0); Total Bilirubin 1.1 mg/dL (0.2-1.3); Total Protein 5.8 g/dL (6.3-8.2)
[2021-11-21] MEDS: ENOXAPARIN 40 MG/0.4 ML SYRINGE SQ SCH (09:58)
[2021-11-21] MEDS: CEFEPIME 2 GM in SODIUM CHLORIDE 0.9% 100 ML IVPB SCH ×2 (09:58→21:18)
[2021-11-21] MEDS: predniSONE 5 MG TAB PO SCH (09:59)
[2021-11-21] MEDS: FUROSEMIDE 20 MG TAB PO SCH (09:59)
[2021-11-21] MEDS: EZETIMIBE 10 MG TAB PO SCH (09:59)
[2021-11-21] MEDS: DOCUSATE 100 MG CAP PO SCH ×2 (09:59→21:18)
[2021-11-21] MEDS: OXYBUTYNIN 10 MG TAB.ER.24 PO SCH (09:59)
[2021-11-21] MEDS: CHOLECALCIFEROL 25 MCG (1000 IU) TABLET PO SCH (09:59)
[2021-11-21] MEDS: METOPROLOL SUCCINATE (ER) 25 MG TAB.ER.24H PO SCH (09:59)
[2021-11-21] MEDS: DICLOFENAC SODIUM GEL 100 GM TUBE TOPICAL SCH ×4 (10:00→22:20)
[2021-11-21] MEDS: amLODIPine 10 MG TAB PO SCH (10:00)
[2021-11-21] MEDS: PANTOPRAZOLE 40 MG/10 ML VIAL IV SCH (10:00)
[2021-11-21 11:27] LABS: Band Neutrophils % 6 %; Lymphocytes # (M) 1.78 k/uL (1.0-4.8); Monocytes # (M) 0.72 k/uL (0-1.0); Neutrophils % (M) 40 %; Nucleated Red Blood Cells 1 /100 WBC (0-0); Total Cells Counted 100
[2021-11-21 11:30] LABS: Crenated RBC Present; Large Platelets Present
[2021-11-21 11:31] LABS: Polychromasia Present
[2021-11-21 11:44] LABS: Glucose,Whole Blood 126 mg/dL (75-99)
--- NOTE | 2021-11-21 12:26 | P.PN ---
Subjective Progress Note Date: 11/21/21 Principal diagnosis: Recent hematoma on heparin, acute BLE DVT. IgG kappa paraproteinemia. Anemia of CKD In f/u today pt is feeling better, she looks better. No new physical c/o Objective - Vital Signs Vital signs: Vital Signs Temp 99.1 F 11/21/21 09:00 Pulse 86 11/21/21 09:00 Resp 14 11/21/21 09:00 BP 141/65 11/21/21 09:00 Pulse Ox 97 11/21/21 09:00 Intake & Output 11/20/21 11/21/21 11/21/21 18:59 06:59 18:59 Intake Total 240 240 Output Total 1100 300 Balance 240 -1100 -60 Weight 135 kg Intake: Oral 240 240 Blood Product 0 Rc As-1 Unit 0 [id number] Output: Urine 1100 300 Stool 0 Other: Voiding Method Indwelling Catheter Indwelling Catheter # Bowel Movements 1 0 - Constitutional General appearance: Present: cooperative, morbidly obese, no acute distress - EENT Eyes: Present: anicteric sclerae, EOMI ENT: Present: hearing grossly normal, normal oropharynx - Respiratory Details: resp even and unlabored - Musculoskeletal Musculoskeletal: Present: generalized weakness - Psychiatric Psychiatric: Present: A&O x's 3, appropriate affect, intact judgment & insight - Labs CBC & Chem 7: 11/21/21 07:16 11/21/21 07:16 Labs: Abnormal Lab Results - Last 24 Hours (Table) 11/12/21 11/15/21 11/20/21 Range/Units 08:14 09:56 07:17 WBC (3.8-10.6) k/uL RBC (3.80-5.40) m/uL Hgb (11.4-16.0) gm/dL Hct (34.0-46.0) % MCV (80.0-100.0) fL MCHC (31.0-37.0) g/dL RDW (11.5-15.5) % Sodium (137-145) mmol/L BUN (7-17) mg/dL POC Glucose (mg/dL) (75-99) mg/dL Calcium (8.4-10.2) mg/dL TIBC 169 L (228-460) ug/dL Transferrin 121.0 L (204.0-354.0) mg/dL Total Protein (6.3-8.2) g/dL Albumin (3.5-5.0) g/dL Crossmatch See Detail See Detail 11/20/21 11/20/21 11/20/21 Range/Units 10:29 16:52 20:34 WBC (3.8-10.6) k/uL RBC (3.80-5.40) m/uL Hgb (11.4-16.0) gm/dL Hct (34.0-46.0) % MCV (80.0-100.0) fL MCHC (31.0-37.0) g/dL RDW (11.5-15.5) % Sodium (137-145) mmol/L BUN (7-17) mg/dL POC Glucose (mg/dL) 245 H 240 H (75-99) mg/dL Calcium (8.4-10.2) mg/dL TIBC (228-460) ug/dL Transferrin (204.0-354.0) mg/dL Total Protein (6.3-8.2) g/dL Albumin (3.5-5.0) g/dL Crossmatch See Detail 11/20/21 11/21/21 11/21/21 Range/Units 22:17 07:16 07:16 WBC 3.5 L (3.8-10.6) k/uL RBC 3.42 L 2.87 L (3.80-5.40) m/uL Hgb 10.0 L D 8.7 L (11.4-16.0) gm/dL Hct 33.3 L 28.9 L (34.0-46.0) % MCV 100.5 H (80.0-100.0) fL MCHC 30.1 L 30.1 L (31.0-37.0) g/dL RDW 16.1 H 17.0 H (11.5-15.5) % Sodium 136 L (137-145) mmol/L BUN 31 H (7-17) mg/dL POC Glucose (mg/dL) (75-99) mg/dL Calcium 8.0 L (8.4-10.2) mg/dL TIBC (228-460) ug/dL Transferrin (204.0-354.0) mg/dL Total Protein 5.8 L (6.3-8.2) g/dL Albumin 2.2 L (3.5-5.0) g/dL Crossmatch 11/21/21 Range/Units 11:42 WBC (3.8-10.6) k/uL RBC (3.80-5.40) m/uL Hgb (11.4-16.0) gm/dL Hct (34.0-46.0) % MCV (80.0-100.0) fL MCHC (31.0-37.0) g/dL RDW (11.5-15.5) % Sodium (137-145) mmol/L BUN (7-17) mg/dL POC Glucose (mg/dL) 126 H (75-99) mg/dL Calcium (8.4-10.2) mg/dL TIBC (228-460) ug/dL Transferrin (204.0-354.0) mg/dL Total Protein (6.3-8.2) g/dL Albumin (3.5-5.0) g/dL Crossmatch Microbiology - Last 24 Hours (Table) 11/19/21 11:52 Gram Stain - Final Sputum Sputum Culture - Final Assessment and Plan (1) DVT (deep venous thrombosis) Narrative/Plan: BLE DVT, acute. S/P IVC filter placement. Cont to hold anticoagulation for recent bleeding. Pt is on DVT prophylaxis CT AP reveals a decrease in previous hematoma. May consider f/u in a few months to verify resolution Current Visit: Yes Status: Acute Priority: High Code(s): I82.409 - ACUTE EMBOLISM AND THOMBOS UNSP DEEP VN UNSP LOWER EXTREMITY SNOMED Code(s): 737618 003 (2) Anemia Narrative/Plan: On chart review she was noted to be significantly anemic around February 2021. She is also noted to have an increase in her creatinine at that time as well. Her Hgb was in the 8 range on DC in Oct. It was 8 range this admit. She has required 3 units since admit. Transfusion threshold lower to 6.5 / nationwide shortage of blood. Epo level elevated. Pt s/p 3 doses of parenteral iron around 10/21/21, she was also on oral iron. Recheck iron studies adequate, 1 SANDRA dose today, aranesp 40mcg SQ weekly for Hgb <11, anemia of CKD. Discussed with field account manager Current Visit: Yes Status: Acute Priority: High Code(s): D64.9 - ANEMIA, UNSPECIFIED SNOMED Code(s): 472022399 (3) IgG monoclonal gammopathy Narrative/Plan: IgG [place] paraproteinemia 1.25g/dl. Partial CRAB criteria met- anemia, renal failure. Otherwise, Calcium is low/near normal. Bone survey does not show any myeloma lesions. UPEP no specific protein identified. Clinical picture most consistent with MGUS. Recommend SANDRA for anemia since CKD is a factor in anemia. Cont to monitor labs. The above was discussed with pt. She verbalized understanding the plan. Current Visit: Yes Status: Acute Priority: High Code(s): D47.2 - MONOCLONAL GAMMOPATHY SNOMED Code(s): 205404934
[2021-11-21] MEDS ORDERED: DARBEPOETIN ALFA 40 MCG/0.4 ML SYRINGE SQ SCH (12:30)
[2021-11-21 12:39] LABS: Free Lambda Lt Chain Qt, Urine 1.24 mg/dL (0.00-0.38)
[2021-11-21 14:45] LABS: Free Kappa Lt Chain Qnt, Urine 23.42 mg/dL (0.00-3.29)
[2021-11-21 17:07] LABS: Glucose,Whole Blood 182 mg/dL (75-99)
--- NOTE | 2021-11-21 18:34 | P.PN ---
Subjective Progress Note Date: 11/21/21 I am starting care for this patient on 11/11/2020, Dr Muhammad was covering for me This is an 75-year-old female patient who initially presented to the ER with concerns of fever from [facility] facility. Patient was positive for urinary tract infection. COVID-19 was negative. Patient had recent prolonged hospitalization for acute CHF Exacerbation and right lower lobe pneumonia. During that hospitalization patient was maintained on heparin drip for possible non-ST elevated [place] and developed secondary abdominal wall hematoma. Patient to cooperate 2 units are PRBCs. Patient also had secondary acute kidney injury and urinary retention. Urine culture positive for group D enterococcus and blood culture positive for staphylococcus epidermis. Patient has been started on IV antibiotics. Infectious disease services were consulted. On 11/11/2021 patient's alert and oriented 3 resting comfortably in bed. Patient remains on IV antibiotics. Patient still having elevated temps. At this time patient denies chest pain or shortness of breath. Diarrhea. Patient denies any urinary burning or frequency On 11/12/2021 patient was seen and examined on the medical floor she is alert and oriented 3 in no apparent distress she had elevated d-dimer lower extremity Doppler revealed bilateral lower extremity DVT she was started on full therapeutic dose of Lovenox this morning her hemoglobin was down to 6.8 she received 1 unit of red blood cell transfusion otherwise she continues to be on IV antibiotics she denies any complaints at this time On 11/13/2009 to patient's alert and oriented 3. She will globin improving to 7.9 status post 1 unit of PRBCs. Definitive plans for IVC filter. Hematology and vascular surgery following. Patient remains on IV antibiotics. At that t verena patient denies chest pain.. Patient denies shortness breath. Patient denies nausea vomiting or diarrhea. Patient denies any urinary burning or frequency On 11/14/2021. Patient's alert and oriented 3. Patient to undergo IVC filter today. On 11/15/2021 status post IVC filter. Patient is currently sitting up in chair. Patient alert and oriented 3. Patient remains on subcu Lovenox 100 every 12 hours. hgb 6.9. 1 unit PRBCs have been ordered. Patient remains on IV daptomycin. Patient complaining of hip pain which apparently is chronic for her order additional pain medication. Patient denies chest pain or shortness breath. Patient. Patient denies any urinary burning or frequency On 11/16/2021 patient was seen and examined on the medical floor, she is complaining of pain in the right hip area otherwise she denies any complaints there is no fever or chills no headache or dizziness no chest pain no shortness of breath no cough no nausea or vomiting no abdominal pain no diarrhea no blood in the stools no burning with urination no frequency or urgency and no hematuria. Hemoglobin is stable today at 8.3. Per Dr. Wang with recommendation, full dose Lovenox was discontinued yesterday, she will be started on Lovenox 40 mg subcu daily today, will check x-ray of the right hip, patient was given Voltaren gel to the right hip per her request On 11/17/2021 patient is alert and oriented 3. Patient had episode of elevated heart rate in the 150s. A team was called. Patient also currently getting treated for pneumonia. At this time will transfer patient to cardiac stepdown unit. Telemetry ordered. Stat labs ordered. Cardiology consult in place. Patient reports improvement. Patient denies chest pain. At this time cardiology, pulmonary, infectious disease and hematology services are following. On 11/18/2021 patient was seen and examined on the medical floor she is alert and oriented 3 in no apparent distress there is no fever or chills no headache or dizziness no chest pain no shortness of breath no cough no nausea or vomiting no abdominal pain no diarrhea no blood in the stools will burning with urination no frequency or urgency no hematuria. Hemoglobin is stable at 7.8. Input from multiple specialists review, patient will be restarted on Lovenox at 40 mg subcu once daily, will continue to follow closely. On 11/19/2021 patient is alert and oriented 3. Hemoglobin today 7.4. Heart rate improved. Patient denies chest pain or shortness breath. Patient denies nausea vomiting or diarrhea. Patient denies any urinary burning or frequency. On 11/20/2021 patient's alert and oriented 3. Hgb 6.9. Bone survey and 24- hour urine ordered per hematology services to rule out multiple myeloma. Patient denies chest pain or shortness of breath. Patient denies nausea vomiting or diarrhea. Patient denies any urinary burning or frequency. Patient has been transitioned to by mouth Lasix. On 11/21/2021 patient was seen and examined on the medical floor she is alert and oriented 3 in no apparent distress she denies any specific complaints at this time, vital examination reveals a temperature of 98.2 pulse 92 respiration 16 blood pressure 118/57 pulse ox 92% on room air. Hemoglobin is 8.7 platelet count 309 white blood count 4.8 BUN 31 creatinine 0.94 Objective - Vital Signs Vital signs: Vital Signs Temp 98.4 F 11/21/21 04:00 Pulse 84 11/21/21 04:00 Resp 18 11/21/21 04:00 BP 133/84 11/21/21 04:00 Pulse Ox 95 11/21/21 04:00 Intake & Output 11/20/21 11/21/21 11/21/21 18:59 06:59 18:59 Intake Total 240 240 Output Total 1100 300 Balance 240 -1100 -60 Weight 135 kg Intake: Oral 240 240 Blood Product 0 Rc As-1 Unit 0 [id number] Output: Urine 1100 300 Stool 0 Other: Voiding Method Indwelling Catheter Indwelling Catheter # Bowel Movements 1 0 - Exam Head normocephalic Neck supple Lungs clear to auscultation bilaterally no wheezing or crackles Heart regular rate and rhythm S1-S2, no rub or gallop Abdomen is soft nontender nondistended positive bowel sounds no hepatosplenomegaly Extremities no edema Neuro alert and orientated to 3 - Labs CBC & Chem 7: 11/21/21 07:16 11/21/21 07:16 Labs: Abnormal Lab Results - Last 24 Hours (Table) 11/12/21 11/15/21 11/20/21 Range/Units 08:14 09:56 07:17 WBC (3.8-10.6) k/uL RBC (3.80-5.40) m/uL Hgb (11.4-16.0) gm/dL Hct (34.0-46.0) % MCV (80.0-100.0) fL MCHC (31.0-37.0) g/dL RDW (11.5-15.5) % Sodium (137-145) mmol/L BUN (7-17) mg/dL POC Glucose (mg/dL) (75-99) mg/dL Calcium (8.4-10.2) mg/dL TIBC 169 L (228-460) ug/dL Transferrin 121.0 L (204.0-354.0) mg/dL Total Protein (6.3-8.2) g/dL Albumin (3.5-5.0) g/dL Crossmatch See Detail See Detail 11/20/21 11/20/21 11/20/21 Range/Units 10:29 11:38 16:52 WBC (3.8-10.6) k/uL RBC (3.80-5.40) m/uL Hgb (11.4-16.0) gm/dL Hct (34.0-46.0) % MCV (80.0-100.0) fL MCHC (31.0-37.0) g/dL RDW (11.5-15.5) % Sodium (137-145) mmol/L BUN (7-17) mg/dL POC Glucose (mg/dL) 126 H 245 H (75-99) mg/dL Calcium (8.4-10.2) mg/dL TIBC (228-460) ug/dL Transferrin (204.0-354.0) mg/dL Total Protein (6.3-8.2) g/dL Albumin (3.5-5.0) g/dL Crossmatch See Detail 11/20/21 11/20/21 11/21/21 Range/Units 20:34 22:17 07:16 WBC 3.5 L (3.8-10.6) k/uL RBC 3.42 L 2.87 L (3.80-5.40) m/uL Hgb 10.0 L D 8.7 L (11.4-16.0) gm/dL Hct 33.3 L 28.9 L (34.0-46.0) % MCV 100.5 H (80.0-100.0) fL MCHC 30.1 L 30.1 L (31.0-37.0) g/dL RDW 16.1 H 17.0 H (11.5-15.5) % Sodium (137-145) mmol/L BUN (7-17) mg/dL POC Glucose (mg/dL) 240 H (75-99) mg/dL Calcium (8.4-10.2) mg/dL TIBC (228-460) ug/dL Transferrin (204.0-354.0) mg/dL Total Protein (6.3-8.2) g/dL Albumin (3.5-5.0) g/dL Crossmatch 11/21/21 Range/Units 07:16 WBC (3.8-10.6) k/uL RBC (3.80-5.40) m/uL Hgb (11.4-16.0) gm/dL Hct (34.0-46.0) % MCV (80.0-100.0) fL MCHC (31.0-37.0) g/dL RDW (11.5-15.5) % Sodium 136 L (137-145) mmol/L BUN 31 H (7-17) mg/dL POC Glucose (mg/dL) (75-99) mg/dL Calcium 8.0 L (8.4-10.2) mg/dL TIBC (228-460) ug/dL Transferrin (204.0-354.0) mg/dL Total Protein 5.8 L (6.3-8.2) g/dL Albumin 2.2 L (3.5-5.0) g/dL Crossmatch Microbiology - Last 24 Hours (Table) 11/19/21 11:52 Gram Stain - Final Sputum Sputum Culture - Final Assessment and Plan Assessment: 1. Fever secondary to urinary tract infection with sepsis 2. Positive blood culture. Possible contamination per infectious disease 3. Recent prolonged hospitalization for CHF and pneumonia 4. Recent abdominal hematoma secondary to heparin drip 5. History of Acute kidney injury 6. History of CVA 7. History of diabetes mellitus type 2 8. History of rheumatoid arthritis 9. Essential hypertension 10. Lower extremity DVTs. Status post IVC filter placement 11/14/2021. 11. Sinus tachycardia with heart rate in the 150s. Cardiology consult placed 12. Elevated troponin. Telemetry ordered and patient transfer to higher level care selective care unit 13. Pneumonia. Infectious disease services are following patient remains on cefepime Patient maintained on IV antibiotics Cardiology, pulmonary, infectious disease and hematology services are following Bone survey and 24-hour urine ordered per hematology services Repeat labs ordered
--- NOTE | 2021-11-21 18:37 | PN ---
PROGRESS NOTE DATE OF SERVICE: 11/21/2021 REASON FOR FOLLOWUP: Pneumonia. INTERVAL HISTORY: The patient is afebrile. The patient is breathing slightly comfortably today on room air. The patient denies having any chest pain. No worsening cough or sputum production. No abdominal pain or diarrhea. PHYSICAL EXAMINATION: Blood pressure 119/57, pulse of 92, temperature 98.2. She is 92% on room air. General description is an elderly female lying in bed in no distress. Respiratory system: Unlabored breathing, decreased breath sounds at the base. No wheeze. Heart S1, S2. Regular rate and rhythm. Abdomen soft, no tenderness. LABS: Hemoglobin is 8.7, white count , creatinine 0.94. DIAGNOSTIC IMPRESSION AND PLAN: 1. Patient with acute VRE urinary tract infection that has been adequately treated; off antibiotics. 2. Patient with pneumonia, concern for possible Gram-negative; however, sputum has been negative for any resistant pathogen. Patient will be able to transition to oral antibiotic on discharge. Continue with supportive care. MMODL / IJN: [id number] /
[2021-11-21 19:59] LABS: Glucose,Whole Blood 168 mg/dL (75-99)
[2021-11-21] MEDS: MONTELUKAST 10 MG TAB PO SCH (21:18)
[2021-11-21] MEDS: FERROUS SULFATE 325 MG TAB PO SCH (21:18)
[2021-11-22 06:08] LABS: Glucose,Whole Blood 108 mg/dL (75-99)
[2021-11-22] MEDS: INSULIN ASPART (NovoLOG) 100 UNIT/ML VIAL SQ SCH ×4 (06:13→21:30)
[2021-11-22] MEDS: LEVOTHYROXINE 25 MCG TAB PO SCH (06:30)
[2021-11-22] MEDS: ALBUTEROL NEBULIZED 2.5 MG/3 ML INHALATION SCH ×4 (07:24→20:13)
[2021-11-22] MEDS: PANTOPRAZOLE 40 MG/10 ML VIAL IV SCH (09:25)
[2021-11-22] MEDS: CHOLECALCIFEROL 25 MCG (1000 IU) TABLET PO SCH (09:26)
[2021-11-22] MEDS: FUROSEMIDE 20 MG TAB PO SCH (09:26)
[2021-11-22] MEDS: amLODIPine 10 MG TAB PO SCH (09:27)
[2021-11-22] MEDS: METOPROLOL SUCCINATE (ER) 25 MG TAB.ER.24H PO SCH (09:27)
[2021-11-22] MEDS: ENOXAPARIN 40 MG/0.4 ML SYRINGE SQ SCH (09:27)
[2021-11-22] MEDS: OXYBUTYNIN 10 MG TAB.ER.24 PO SCH (09:28)
[2021-11-22] MEDS: predniSONE 5 MG TAB PO SCH (09:28)
[2021-11-22] MEDS: CEFEPIME 2 GM in SODIUM CHLORIDE 0.9% 100 ML IVPB SCH ×2 (09:28→21:30)
[2021-11-22] MEDS: EZETIMIBE 10 MG TAB PO SCH (09:29)
[2021-11-22] MEDS: DOCUSATE 100 MG CAP PO SCH ×2 (09:30→21:30)
--- NOTE | 2021-11-22 09:51 | P.PN ---
Subjective Progress Note Date: 11/22/21 I am starting care for this patient on 11/11/2020, Dr Muhammad was covering for me This is an 75-year-old female patient who initially presented to the ER with concerns of fever from [facility] facility. Patient was positive for urinary tract infection. COVID-19 was negative. Patient had recent prolonged hospitalization for acute CHF Exacerbation and right lower lobe pneumonia. During that hospitalization patient was maintained on heparin drip for possible non-ST elevated [place] and developed secondary abdominal wall hematoma. Patient to cooperate 2 units are PRBCs. Patient also had secondary acute kidney injury and urinary retention. Urine culture positive for group D enterococcus and blood culture positive for staphylococcus epidermis. Patient has been started on IV antibiotics. Infectious disease services were consulted. On 11/11/2021 patient's alert and oriented 3 resting comfortably in bed. Patient remains on IV antibiotics. Patient still having elevated temps. At this time patient denies chest pain or shortness of breath. Diarrhea. Patient denies any urinary burning or frequency On 11/12/2021 patient was seen and examined on the medical floor she is alert and oriented 3 in no apparent distress she had elevated d-dimer lower extremity Doppler revealed bilateral lower extremity DVT she was started on full therapeutic dose of Lovenox this morning her hemoglobin was down to 6.8 she received 1 unit of red blood cell transfusion otherwise she continues to be on IV antibiotics she denies any complaints at this time On 11/13/2009 to patient's alert and oriented 3. She will globin improving to 7.9 status post 1 unit of PRBCs. Definitive plans for IVC filter. Hematology and vascular surgery following. Patient remains on IV antibiotics. At that t verena patient denies chest pain.. Patient denies shortness breath. Patient denies nausea vomiting or diarrhea. Patient denies any urinary burning or frequency On 11/14/2021. Patient's alert and oriented 3. Patient to undergo IVC filter today. On 11/15/2021 status post IVC filter. Patient is currently sitting up in chair. Patient alert and oriented 3. Patient remains on subcu Lovenox 100 every 12 hours. hgb 6.9. 1 unit PRBCs have been ordered. Patient remains on IV daptomycin. Patient complaining of hip pain which apparently is chronic for her order additional pain medication. Patient denies chest pain or shortness breath. Patient. Patient denies any urinary burning or frequency On 11/16/2021 patient was seen and examined on the medical floor, she is complaining of pain in the right hip area otherwise she denies any complaints there is no fever or chills no headache or dizziness no chest pain no shortness of breath no cough no nausea or vomiting no abdominal pain no diarrhea no blood in the stools no burning with urination no frequency or urgency and no hematuria. Hemoglobin is stable today at 8.3. Per Dr. Wang with recommendation, full dose Lovenox was discontinued yesterday, she will be started on Lovenox 40 mg subcu daily today, will check x-ray of the right hip, patient was given Voltaren gel to the right hip per her request On 11/17/2021 patient is alert and oriented 3. Patient had episode of elevated heart rate in the 150s. A team was called. Patient also currently getting treated for pneumonia. At this time will transfer patient to cardiac stepdown unit. Telemetry ordered. Stat labs ordered. Cardiology consult in place. Patient reports improvement. Patient denies chest pain. At this time cardiology, pulmonary, infectious disease and hematology services are following. On 11/18/2021 patient was seen and examined on the medical floor she is alert and oriented 3 in no apparent distress there is no fever or chills no headache or dizziness no chest pain no shortness of breath no cough no nausea or vomiting no abdominal pain no diarrhea no blood in the stools will burning with urination no frequency or urgency no hematuria. Hemoglobin is stable at 7.8. Input from multiple specialists review, patient will be restarted on Lovenox at 40 mg subcu once daily, will continue to follow closely. On 11/19/2021 patient is alert and oriented 3. Hemoglobin today 7.4. Heart rate improved. Patient denies chest pain or shortness breath. Patient denies nausea vomiting or diarrhea. Patient denies any urinary burning or frequency. On 11/20/2021 patient's alert and oriented 3. Hgb 6.9. Bone survey and 24- hour urine ordered per hematology services to rule out multiple myeloma. Patient denies chest pain or shortness of breath. Patient denies nausea vomiting or diarrhea. Patient denies any urinary burning or frequency. Patient has been transitioned to by mouth Lasix. On 11/21/2021 patient was seen and examined on the medical floor she is alert and oriented 3 in no apparent distress she denies any specific complaints at this time, vital examination reveals a temperature of 98.2 pulse 92 respiration 16 blood pressure 118/57 pulse ox 92% on room air. Hemoglobin is 8.7 platelet count 309 white blood count 4.8 BUN 31 creatinine 0.94 On 11/22/2021 patient's alert and oriented 3. Patient reports she is feeling improved. Patient remains on IV Maxipime. Labs for today currently pending. Denies chest pain or shortness of breath. Patient denies nausea vomiting or diarrhea. Patient denies any urinary burning or frequency Objective - Vital Signs Vital signs: Vital Signs Temp 98.0 F 11/22/21 08:00 Pulse 92 11/22/21 08:00 Resp 19 11/22/21 08:00 BP 132/63 11/22/21 08:00 Pulse Ox 96 11/22/21 08:00 Intake & Output 11/21/21 11/22/21 11/22/21 18:59 06:59 18:59 Intake Total 480 356 Output Total 300 700 Balance 180 -344 Intake: Oral 480 356 Output: Urine 300 700 Stool 0 Other: Voiding Method Indwelling Catheter Indwelling Catheter # Bowel Movements 0 - Exam Head normocephalic Neck supple Lungs clear to auscultation bilaterally no wheezing or crackles Heart regular rate and rhythm S1-S2, no rub or gallop Abdomen is soft nontender nondistended positive bowel sounds no hepatosplenomegaly Extremities no edema Neuro alert and orientated to 3 - Labs CBC & Chem 7: 11/21/21 07:16 11/21/21 07:16 Labs: Abnormal Lab Results - Last 24 Hours (Table) 11/19/21 11/21/21 11/21/21 Range/Units 15:00 07:16 11:42 Nucleated RBCs 1 H (0-0) /100 WBC POC Glucose (mg/dL) 126 H (75-99) mg/dL U Free [place] Ch 23.42 H (0.00-3.29) mg/dL U Free [place] Ch 1.24 H (0.00-0.38) mg/dL 11/21/21 11/21/21 11/22/21 Range/Units 16:50 19:58 06:06 Nucleated RBCs (0-0) /100 WBC POC Glucose (mg/dL) 182 H 168 H 108 H (75-99) mg/dL U Free [place] Ch (0.00-3.29) mg/dL U Free [place] Ch (0.00-0.38) mg/dL Assessment and Plan Assessment: 1. Fever secondary to urinary tract infection with sepsis 2. Positive blood culture. Possible contamination per infectious disease 3. Recent prolonged hospitalization for CHF and pneumonia 4. Recent abdominal hematoma secondary to heparin drip 5. History of Acute kidney injury 6. History of CVA 7. History of diabetes mellitus type 2 8. History of rheumatoid arthritis 9. Essential hypertension 10. Lower extremity DVTs. Status post IVC filter placement 11/14/2021. 11. Sinus tachycardia with heart rate in the 150s. Cardiology consult placed 12. Elevated troponin. Telemetry ordered and patient transfer to higher level care selective care unit 13. Pneumonia. Infectious disease services are following patient remains on cefepime Patient maintained on IV antibiotics Cardiology, pulmonary, infectious disease and hematology services are following Repeat labs ordered Start planning in progress patient will likely return to [facility]CF facility
[2021-11-22 11:06] LABS: Anisocytosis Slight; Basophils % (A) 1 %; Eosinophils # (A) 0.1 k/uL (0-0.7); Eosinophils % (A) 3 %; HCT 29.4 % (34.0-46.0); HGB 8.9 gm/dL (11.4-16.0); Hypochromasia Marked; Lymphocytes # (A) 1.4 k/uL (1.0-4.8); Lymphocytes % (A) 45 %; MCHC 30.2 g/dL (31.0-37.0); MCV 99.5 fL (80.0-100.0); Macrocytosis Slight; Mean Platelet Volume 8.1; Monocytes # (A) 0.2 k/uL (0-1.0); Monocytes % (A) 6 %; Neutrophils # (A) 1.3 k/uL (1.3-7.7); Neutrophils % (A) 43 %; Platelet Count 304 k/uL (150-450); RBC 2.95 m/uL (3.80-5.40); RDW 16.3 % (11.5-15.5); WBC 3.1 k/uL (3.8-10.6)
[2021-11-22 11:20] LABS: Albumin 2.3 g/dL (3.5-5.0); Calcium 8.1 mg/dL (8.4-10.2); Total Bilirubin 0.9 mg/dL (0.2-1.3); Total Protein 5.9 g/dL (6.3-8.2)
[2021-11-22 11:55] LABS: Glucose,Whole Blood 175 mg/dL (75-99)
[2021-11-22] MEDS: DICLOFENAC SODIUM GEL 100 GM TUBE TOPICAL SCH ×4 (12:11→21:32)
[2021-11-22 15:11] LABS: Free Cortisol 24 Hour,Urine 34.4 ug/day (<45.0)
[2021-11-22 16:35] LABS: Glucose,Whole Blood 189 mg/dL (75-99)
--- NOTE | 2021-11-22 17:14 | PN ---
PROGRESS NOTE DATE OF SERVICE: 11/22/2021 REASON FOR FOLLOWUP: Pneumonia. INTERVAL HISTORY: The patient is afebrile. The patient is breathing more comfortably. The patient denies having any chest pain or worsening cough or sputum production. No abdominal pain or diarrhea. PHYSICAL EXAMINATION: Blood pressure is 122/63, pulse 90, temperature 98. She is 96% General description is an elderly female lying in bed in no distress. Respiratory system: Unlabored breathing, decreased intensity of breath sounds. No wheeze. Heart S1, S2. Regular rate and rhythm. Abdomen soft, no tenderness. LABS: Hemoglobin is 8.9, white count 3.1. Creatinine 0.92. DIAGNOSTIC IMPRESSION AND PLAN: 1. Patient with VRE urinary tract infection, adequately treated. 2. Patient with pneumonia, concern for possible Gram-negative. Sputum so far. . MMODL / IJN: [id number] /
[2021-11-22 20:38] LABS: Glucose,Whole Blood 155 mg/dL (75-99)
[2021-11-22] MEDS: MONTELUKAST 10 MG TAB PO SCH (21:30)
[2021-11-22] MEDS: FERROUS SULFATE 325 MG TAB PO SCH (21:30)
[2021-11-23] MEDS: LEVOTHYROXINE 25 MCG TAB PO SCH (06:16)
[2021-11-23 06:40] LABS: Basophils % (A) 1 %; Eosinophils # (A) 0.1 k/uL (0-0.7); Eosinophils % (A) 3 %; HCT 30.6 % (34.0-46.0); HGB 9.3 gm/dL (11.4-16.0); Hypochromasia Marked; Lymphocytes # (A) 1.5 k/uL (1.0-4.8); Lymphocytes % (A) 49 %; MCH 30.1 pg (25.0-35.0); MCHC 30.5 g/dL (31.0-37.0); MCV 98.7 fL (80.0-100.0); Macrocytosis Slight; Mean Platelet Volume 8.6; Monocytes # (A) 0.2 k/uL (0-1.0); Monocytes % (A) 8 %; Neutrophils # (A) 1.1 k/uL (1.3-7.7); Neutrophils % (A) 36 %; Platelet Count 295 k/uL (150-450)
[2021-11-23 06:49] LABS: Albumin 2.3 g/dL (3.5-5.0); Calcium 8.3 mg/dL (8.4-10.2); Potassium 3.9 mmol/L (3.5-5.1); Total Bilirubin 0.9 mg/dL (0.2-1.3)
[2021-11-23 06:53] LABS: Glucose,Whole Blood 98 mg/dL (75-99)
[2021-11-23] MEDS: INSULIN ASPART (NovoLOG) 100 UNIT/ML VIAL SQ SCH ×4 (07:38→21:54)
[2021-11-23] MEDS: ALBUTEROL NEBULIZED 2.5 MG/3 ML INHALATION SCH ×4 (08:11→20:06)
[2021-11-23] MEDS: CHOLECALCIFEROL 25 MCG (1000 IU) TABLET PO SCH (08:57)
[2021-11-23] MEDS: FUROSEMIDE 20 MG TAB PO SCH (08:57)
[2021-11-23] MEDS: ENOXAPARIN 40 MG/0.4 ML SYRINGE SQ SCH (08:58)
[2021-11-23] MEDS: EZETIMIBE 10 MG TAB PO SCH (08:58)
[2021-11-23] MEDS: OXYBUTYNIN 10 MG TAB.ER.24 PO SCH (08:58)
[2021-11-23] MEDS: predniSONE 5 MG TAB PO SCH (08:58)
[2021-11-23] MEDS: CEFEPIME 2 GM in SODIUM CHLORIDE 0.9% 100 ML IVPB SCH ×2 (08:58→21:47)
[2021-11-23] MEDS: METOPROLOL SUCCINATE (ER) 25 MG TAB.ER.24H PO SCH (08:58)
[2021-11-23] MEDS: DOCUSATE 100 MG CAP PO SCH ×2 (08:58→21:47)
[2021-11-23] MEDS: amLODIPine 10 MG TAB PO SCH (08:58)
[2021-11-23] MEDS: PANTOPRAZOLE 40 MG/10 ML VIAL IV SCH (08:59)
[2021-11-23] MEDS: DICLOFENAC SODIUM GEL 100 GM TUBE TOPICAL SCH ×3 (08:59→17:43)
[2021-11-23 12:22] LABS: Glucose,Whole Blood 114 mg/dL (75-99)
--- NOTE | 2021-11-23 15:21 | P.PN ---
Subjective Progress Note Date: 11/23/21 I am starting care for this patient on 11/11/2020, Dr Muhammad was covering for me This is an 75-year-old female patient who initially presented to the ER with concerns of fever from [facility] facility. Patient was positive for urinary tract infection. COVID-19 was negative. Patient had recent prolonged hospitalization for acute CHF Exacerbation and right lower lobe pneumonia. During that hospitalization patient was maintained on heparin drip for possible non-ST elevated [place] and developed secondary abdominal wall hematoma. Patient to cooperate 2 units are PRBCs. Patient also had secondary acute kidney injury and urinary retention. Urine culture positive for group D enterococcus and blood culture positive for staphylococcus epidermis. Patient has been started on IV antibiotics. Infectious disease services were consulted. On 11/11/2021 patient's alert and oriented 3 resting comfortably in bed. Patient remains on IV antibiotics. Patient still having elevated temps. At this time patient denies chest pain or shortness of breath. Diarrhea. Patient denies any urinary burning or frequency On 11/12/2021 patient was seen and examined on the medical floor she is alert and oriented 3 in no apparent distress she had elevated d-dimer lower extremity Doppler revealed bilateral lower extremity DVT she was started on full therapeutic dose of Lovenox this morning her hemoglobin was down to 6.8 she received 1 unit of red blood cell transfusion otherwise she continues to be on IV antibiotics she denies any complaints at this time On 11/13/2009 to patient's alert and oriented 3. She will globin improving to 7.9 status post 1 unit of PRBCs. Definitive plans for IVC filter. Hematology and vascular surgery following. Patient remains on IV antibiotics. At that t verena patient denies chest pain.. Patient denies shortness breath. Patient denies nausea vomiting or diarrhea. Patient denies any urinary burning or frequency On 11/14/2021. Patient's alert and oriented 3. Patient to undergo IVC filter today. On 11/15/2021 status post IVC filter. Patient is currently sitting up in chair. Patient alert and oriented 3. Patient remains on subcu Lovenox 100 every 12 hours. hgb 6.9. 1 unit PRBCs have been ordered. Patient remains on IV daptomycin. Patient complaining of hip pain which apparently is chronic for her order additional pain medication. Patient denies chest pain or shortness breath. Patient. Patient denies any urinary burning or frequency On 11/16/2021 patient was seen and examined on the medical floor, she is complaining of pain in the right hip area otherwise she denies any complaints there is no fever or chills no headache or dizziness no chest pain no shortness of breath no cough no nausea or vomiting no abdominal pain no diarrhea no blood in the stools no burning with urination no frequency or urgency and no hematuria. Hemoglobin is stable today at 8.3. Per Dr. Wang with recommendation, full dose Lovenox was discontinued yesterday, she will be started on Lovenox 40 mg subcu daily today, will check x-ray of the right hip, patient was given Voltaren gel to the right hip per her request On 11/17/2021 patient is alert and oriented 3. Patient had episode of elevated heart rate in the 150s. A team was called. Patient also currently getting treated for pneumonia. At this time will transfer patient to cardiac stepdown unit. Telemetry ordered. Stat labs ordered. Cardiology consult in place. Patient reports improvement. Patient denies chest pain. At this time cardiology, pulmonary, infectious disease and hematology services are following. On 11/18/2021 patient was seen and examined on the medical floor she is alert and oriented 3 in no apparent distress there is no fever or chills no headache or dizziness no chest pain no shortness of breath no cough no nausea or vomiting no abdominal pain no diarrhea no blood in the stools will burning with urination no frequency or urgency no hematuria. Hemoglobin is stable at 7.8. Input from multiple specialists review, patient will be restarted on Lovenox at 40 mg subcu once daily, will continue to follow closely. On 11/19/2021 patient is alert and oriented 3. Hemoglobin today 7.4. Heart rate improved. Patient denies chest pain or shortness breath. Patient denies nausea vomiting or diarrhea. Patient denies any urinary burning or frequency. On 11/20/2021 patient's alert and oriented 3. Hgb 6.9. Bone survey and 24- hour urine ordered per hematology services to rule out multiple myeloma. Patient denies chest pain or shortness of breath. Patient denies nausea vomiting or diarrhea. Patient denies any urinary burning or frequency. Patient has been transitioned to by mouth Lasix. On 11/21/2021 patient was seen and examined on the medical floor she is alert and oriented 3 in no apparent distress she denies any specific complaints at this time, vital examination reveals a temperature of 98.2 pulse 92 respiration 16 blood pressure 118/57 pulse ox 92% on room air. Hemoglobin is 8.7 platelet count 309 white blood count 4.8 BUN 31 creatinine 0.94 On 11/22/2021 patient's alert and oriented 3. Patient reports she is feeling improved. Patient remains on IV Maxipime. Labs for today currently pending. Denies chest pain or shortness of breath. Patient denies nausea vomiting or diarrhea. Patient denies any urinary burning or frequency On 11/23/2021 patient was seen and examined on the medical floor she is alert and oriented 3 in no apparent distress she is still complaining of abdominal discomfort otherwise she denies any complaints at this time there is no fever or chills no headache or dizziness no chest pain no shortness of breath no cough no nausea or vomiting no diarrhea no blood in the stools no burning with urination no frequency or urgency and no hematuria. Hemoglobin today 9.3 we will continue to monitor Objective - Vital Signs Vital signs: Vital Signs Temp 97.9 F 11/23/21 05:00 Pulse 82 11/23/21 08:23 Resp 16 11/23/21 05:00 BP 125/69 11/23/21 05:00 Pulse Ox 96 11/23/21 08:15 Intake & Output 11/22/21 11/23/21 11/23/21 18:59 06:59 18:59 Intake Total 1072 Output Total 1600 0 Balance -528 0 Weight 138 kg Intake: Oral 1072 Output: Urine 1600 Stool 0 Other: Voiding Method External Catheter External Catheter # Voids 2 - Exam Head normocephalic Neck supple Lungs clear to auscultation bilaterally no wheezing or crackles Heart regular rate and rhythm S1-S2, no rub or gallop Abdomen is soft nontender nondistended positive bowel sounds no hepatosplenomegaly Extremities no edema Neuro alert and orientated to 3 - Labs CBC & Chem 7: 11/23/21 06:09 11/23/21 06:09 Labs: Abnormal Lab Results - Last 24 Hours (Table) 11/22/21 11/22/21 11/22/21 Range/Units 10:27 10:27 11:46 WBC 3.1 L (3.8-10.6) k/uL RBC 2.95 L (3.80-5.40) m/uL Hgb 8.9 L (11.4-16.0) gm/dL Hct 29.4 L (34.0-46.0) % MCHC 30.2 L (31.0-37.0) g/dL RDW 16.3 H (11.5-15.5) % Neutrophils # (1.3-7.7) k/uL Sodium 135 L (137-145) mmol/L Carbon Dioxide 33 H (22-30) mmol/L BUN 28 H (7-17) mg/dL Glucose 145 H (74-99) mg/dL POC Glucose (mg/dL) 175 H (75-99) mg/dL Calcium 8.1 L (8.4-10.2) mg/dL Total Protein 5.9 L (6.3-8.2) g/dL Albumin 2.3 L (3.5-5.0) g/dL 11/22/21 11/22/21 11/23/21 Range/Units 16:34 20:37 06:09 WBC 3.0 L (3.8-10.6) k/uL RBC 3.10 L (3.80-5.40) m/uL Hgb 9.3 L (11.4-16.0) gm/dL Hct 30.6 L (34.0-46.0) % MCHC 30.5 L (31.0-37.0) g/dL RDW 16.0 H (11.5-15.5) % Neutrophils # 1.1 L (1.3-7.7) k/uL Sodium (137-145) mmol/L Carbon Dioxide (22-30) mmol/L BUN (7-17) mg/dL Glucose (74-99) mg/dL POC Glucose (mg/dL) 189 H 155 H (75-99) mg/dL Calcium (8.4-10.2) mg/dL Total Protein (6.3-8.2) g/dL Albumin (3.5-5.0) g/dL 11/23/21 Range/Units 06:09 WBC (3.8-10.6) k/uL RBC (3.80-5.40) m/uL Hgb (11.4-16.0) gm/dL Hct (34.0-46.0) % MCHC (31.0-37.0) g/dL RDW (11.5-15.5) % Neutrophils # (1.3-7.7) k/uL Sodium (137-145) mmol/L Carbon Dioxide 33 H (22-30) mmol/L BUN 28 H (7-17) mg/dL Glucose (74-99) mg/dL POC Glucose (mg/dL) (75-99) mg/dL Calcium 8.3 L (8.4-10.2) mg/dL Total Protein 6.0 L (6.3-8.2) g/dL Albumin 2.3 L (3.5-5.0) g/dL Assessment and Plan Assessment: 1. Fever secondary to urinary tract infection with sepsis 2. Positive blood culture. Possible contamination per infectious disease 3. Recent prolonged hospitalization for CHF and pneumonia 4. Recent abdominal hematoma secondary to heparin drip 5. History of Acute kidney injury 6. History of CVA 7. History of diabetes mellitus type 2 8. History of rheumatoid arthritis 9. Essential hypertension 10. Lower extremity DVTs. Status post IVC filter placement 11/14/2021. 11. Sinus tachycardia with heart rate in the 150s. Cardiology consult placed 12. Elevated troponin. Telemetry ordered and patient transfer to higher level care selective care unit 13. Pneumonia. Infectious disease services are following patient remains on cefepime Patient maintained on IV antibiotics Cardiology, pulmonary, infectious disease and hematology services are following Repeat labs ordered Start planning in progress patient will likely return to ECF facility
[2021-11-23] MEDS: ONDANSETRON 4 MG/2 ML VIAL IVP PRN (16:38)
[2021-11-23 17:28] LABS: Glucose,Whole Blood 139 mg/dL (75-99)
--- NOTE | 2021-11-23 18:53 | PN ---
PROGRESS NOTE DATE OF SERVICE: 11/23/2021 REASON FOR FOLLOWUP: Pneumonia. INTERVAL HISTORY: The patient is afebrile. The patient is breathing comfortably. The patient denies having any chest pain, shortness of breath. She did have occasional cough. No sputum. No abdominal pain. Did mention some diarrhea. PHYSICAL EXAMINATION: Blood pressure 139/66 with a pulse of 88, temperature 98.5. She is 97% on room air. General description is an elderly female lying in bed in no distress. Respiratory system: Unlabored breathing, decreased breath sounds in the base, with no wheeze. Heart S1, S2. Regular rate and rhythm. Abdomen soft, no tenderness. LABS: Hemoglobin ( ), white count ( ), creatinine 0.95. DIAGNOSTIC IMPRESSION AND PLAN: 1. Patient with VRE urinary tract infection, adequately treated. 2. Pneumonia, possibly ( ) transition to oral Ceftin on discharge and monitor clinical course. MMODL / IJN: [id number] /
[2021-11-23 20:55] LABS: Glucose,Whole Blood 187 mg/dL (75-99)
[2021-11-23] MEDS: MONTELUKAST 10 MG TAB PO SCH (21:47)
[2021-11-23] MEDS: FERROUS SULFATE 325 MG TAB PO SCH (21:47)
[2021-11-24] MEDS: DICLOFENAC SODIUM GEL 100 GM TUBE TOPICAL SCH ×5 (00:08→22:05)
[2021-11-24] MEDS: LEVOTHYROXINE 25 MCG TAB PO SCH (05:25)
[2021-11-24 07:10] LABS: Glucose,Whole Blood 88 mg/dL (75-99)
[2021-11-24] MEDS: INSULIN ASPART (NovoLOG) 100 UNIT/ML VIAL SQ SCH ×4 (07:16→22:03)
[2021-11-24] MEDS: ALBUTEROL NEBULIZED 2.5 MG/3 ML INHALATION SCH ×4 (08:20→19:43)
[2021-11-24] MEDS: FUROSEMIDE 20 MG TAB PO SCH (09:10)
[2021-11-24] MEDS: predniSONE 5 MG TAB PO SCH (09:11)
[2021-11-24] MEDS: OXYBUTYNIN 10 MG TAB.ER.24 PO SCH (09:11)
[2021-11-24] MEDS: METOPROLOL SUCCINATE (ER) 25 MG TAB.ER.24H PO SCH (09:11)
[2021-11-24] MEDS: EZETIMIBE 10 MG TAB PO SCH (09:11)
[2021-11-24] MEDS: CHOLECALCIFEROL 25 MCG (1000 IU) TABLET PO SCH (09:11)
[2021-11-24] MEDS: CEFEPIME 2 GM in SODIUM CHLORIDE 0.9% 100 ML IVPB SCH ×2 (09:11→21:54)
[2021-11-24] MEDS: PANTOPRAZOLE 40 MG/10 ML VIAL IV SCH (09:11)
[2021-11-24] MEDS: DOCUSATE 100 MG CAP PO SCH ×2 (09:11→21:57)
[2021-11-24] MEDS: amLODIPine 10 MG TAB PO SCH (09:11)
[2021-11-24] MEDS: ENOXAPARIN 40 MG/0.4 ML SYRINGE SQ SCH (09:12)
--- NOTE | 2021-11-24 10:48 | P.PN ---
Subjective Progress Note Date: 11/24/21 I am starting care for this patient on 11/11/2020, Dr Muhammad was covering for me This is an 75-year-old female patient who initially presented to the ER with concerns of fever from [facility] facility. Patient was positive for urinary tract infection. COVID-19 was negative. Patient had recent prolonged hospitalization for acute CHF Exacerbation and right lower lobe pneumonia. During that hospitalization patient was maintained on heparin drip for possible non-ST elevated [place] and developed secondary abdominal wall hematoma. Patient to cooperate 2 units are PRBCs. Patient also had secondary acute kidney injury and urinary retention. Urine culture positive for group D enterococcus and blood culture positive for staphylococcus epidermis. Patient has been started on IV antibiotics. Infectious disease services were consulted. On 11/11/2021 patient's alert and oriented 3 resting comfortably in bed. Patient remains on IV antibiotics. Patient still having elevated temps. At this time patient denies chest pain or shortness of breath. Diarrhea. Patient denies any urinary burning or frequency On 11/12/2021 patient was seen and examined on the medical floor she is alert and oriented 3 in no apparent distress she had elevated d-dimer lower extremity Doppler revealed bilateral lower extremity DVT she was started on full therapeutic dose of Lovenox this morning her hemoglobin was down to 6.8 she received 1 unit of red blood cell transfusion otherwise she continues to be on IV antibiotics she denies any complaints at this time On 11/13/2009 to patient's alert and oriented 3. She will globin improving to 7.9 status post 1 unit of PRBCs. Definitive plans for IVC filter. Hematology and vascular surgery following. Patient remains on IV antibiotics. At that t verena patient denies chest pain.. Patient denies shortness breath. Patient denies nausea vomiting or diarrhea. Patient denies any urinary burning or frequency On 11/14/2021. Patient's alert and oriented 3. Patient to undergo IVC filter today. On 11/15/2021 status post IVC filter. Patient is currently sitting up in chair. Patient alert and oriented 3. Patient remains on subcu Lovenox 100 every 12 hours. hgb 6.9. 1 unit PRBCs have been ordered. Patient remains on IV daptomycin. Patient complaining of hip pain which apparently is chronic for her order additional pain medication. Patient denies chest pain or shortness breath. Patient. Patient denies any urinary burning or frequency On 11/16/2021 patient was seen and examined on the medical floor, she is complaining of pain in the right hip area otherwise she denies any complaints there is no fever or chills no headache or dizziness no chest pain no shortness of breath no cough no nausea or vomiting no abdominal pain no diarrhea no blood in the stools no burning with urination no frequency or urgency and no hematuria. Hemoglobin is stable today at 8.3. Per Dr. Wang with recommendation, full dose Lovenox was discontinued yesterday, she will be started on Lovenox 40 mg subcu daily today, will check x-ray of the right hip, patient was given Voltaren gel to the right hip per her request On 11/17/2021 patient is alert and oriented 3. Patient had episode of elevated heart rate in the 150s. A team was called. Patient also currently getting treated for pneumonia. At this time will transfer patient to cardiac stepdown unit. Telemetry ordered. Stat labs ordered. Cardiology consult in place. Patient reports improvement. Patient denies chest pain. At this time cardiology, pulmonary, infectious disease and hematology services are following. On 11/18/2021 patient was seen and examined on the medical floor she is alert and oriented 3 in no apparent distress there is no fever or chills no headache or dizziness no chest pain no shortness of breath no cough no nausea or vomiting no abdominal pain no diarrhea no blood in the stools will burning with urination no frequency or urgency no hematuria. Hemoglobin is stable at 7.8. Input from multiple specialists review, patient will be restarted on Lovenox at 40 mg subcu once daily, will continue to follow closely. On 11/19/2021 patient is alert and oriented 3. Hemoglobin today 7.4. Heart rate improved. Patient denies chest pain or shortness breath. Patient denies nausea vomiting or diarrhea. Patient denies any urinary burning or frequency. On 11/20/2021 patient's alert and oriented 3. Hgb 6.9. Bone survey and 24- hour urine ordered per hematology services to rule out multiple myeloma. Patient denies chest pain or shortness of breath. Patient denies nausea vomiting or diarrhea. Patient denies any urinary burning or frequency. Patient has been transitioned to by mouth Lasix. On 11/21/2021 patient was seen and examined on the medical floor she is alert and oriented 3 in no apparent distress she denies any specific complaints at this time, vital examination reveals a temperature of 98.2 pulse 92 respiration 16 blood pressure 118/57 pulse ox 92% on room air. Hemoglobin is 8.7 platelet count 309 white blood count 4.8 BUN 31 creatinine 0.94 On 11/22/2021 patient's alert and oriented 3. Patient reports she is feeling improved. Patient remains on IV Maxipime. Labs for today currently pending. Denies chest pain or shortness of breath. Patient denies nausea vomiting or diarrhea. Patient denies any urinary burning or frequency On 11/23/2021 patient was seen and examined on the medical floor she is alert and oriented 3 in no apparent distress she is still complaining of abdominal discomfort otherwise she denies any complaints at this time there is no fever or chills no headache or dizziness no chest pain no shortness of breath no cough no nausea or vomiting no diarrhea no blood in the stools no burning with urination no frequency or urgency and no hematuria. Hemoglobin today 9.3 we will continue to monitor On 11/24/2021 patient's alert and oriented 3. Patient denies chest pain or shortness breath. Patient denies nausea vomiting or diarrhea. Patient denies any urinary burning or frequency. Per infectious disease patient will likely transition to oral Ceftin upon discharge Objective - Vital Signs Vital signs: Vital Signs Temp 97.5 F L 11/24/21 05:30 Pulse 81 11/24/21 08:30 Resp 20 11/24/21 05:30 BP 136/76 11/24/21 05:30 Pulse Ox 94 L 11/24/21 08:21 Intake & Output 11/23/21 11/24/21 11/24/21 18:59 06:59 18:59 Intake Total 100 Output Total 2100 600 Balance -2100 -500 Weight 137 kg Intake: Oral 100 Output: Urine 2100 600 Stool 0 Other: Voiding Method External Catheter External Catheter External Catheter # Voids 0 # Bowel Movements 1 0 - Exam Head normocephalic Neck supple Lungs clear to auscultation bilaterally no wheezing or crackles Heart regular rate and rhythm S1-S2, no rub or gallop Abdomen is soft nontender nondistended positive bowel sounds no hepatosplenomegaly Extremities no edema Neuro alert and orientated to 3 - Labs CBC & Chem 7: 11/23/21 06:09 11/23/21 06:09 Labs: Abnormal Lab Results - Last 24 Hours (Table) 11/23/21 11/23/21 11/23/21 Range/Units 12:02 17:16 20:38 POC Glucose (mg/dL) 114 H 139 H 187 H (75-99) mg/dL Assessment and Plan Assessment: 1. Fever secondary to urinary tract infection with sepsis 2. Positive blood culture. Possible contamination per infectious disease 3. Recent prolonged hospitalization for CHF and pneumonia 4. Recent abdominal hematoma secondary to heparin drip 5. History of Acute kidney injury 6. History of CVA 7. History of diabetes mellitus type 2 8. History of rheumatoid arthritis 9. Essential hypertension 10. Lower extremity DVTs. Status post IVC filter placement 11/14/2021. 11. Sinus tachycardia with heart rate in the 150s. Cardiology consult placed 12. Elevated troponin. Telemetry ordered and patient transfer to higher level care selective care unit 13. Pneumonia. Infectious disease services are following patient remains on cefepime Patient maintained on IV antibiotics Cardiology, pulmonary, infectious disease and hematology services are following Repeat labs ordered discharge planning in progress patient will likely return to ECF facility
[2021-11-24 11:45] LABS: Glucose,Whole Blood 136 mg/dL (75-99)
[2021-11-24 12:15] LABS: Anisocytosis Slight; Basophils # (A) 0.1 k/uL (0-0.2); Basophils % (A) 1 %; Eosinophils # (A) 0.1 k/uL (0-0.7); Eosinophils % (A) 3 %; HCT 33.1 % (34.0-46.0); HGB 9.4 gm/dL (11.4-16.0); Hypochromasia Marked; Lymphocytes % (A) 47 %; MCH 30.2 pg (25.0-35.0); MCHC 28.4 g/dL (31.0-37.0); Macrocytosis Marked; Mean Platelet Volume 7.6; Monocytes # (A) 0.3 k/uL (0-1.0); Monocytes % (A) 7 %; Neutrophils # (A) 1.6 k/uL (1.3-7.7); Neutrophils % (A) 38 %; Platelet Count 259 k/uL (150-450); RBC 3.12 m/uL (3.80-5.40); RDW 16.1 % (11.5-15.5); WBC 4.3 k/uL (3.8-10.6)
[2021-11-24 12:17] LABS: MCV 106.1 fL (80.0-100.0)
[2021-11-24 12:25] LABS: ALT 16 U/L (4-34); African American GFR (CKD) 70 (>60 ml/min/1.73 sqM); Albumin 2.3 g/dL (3.5-5.0); Albumin/Globulin Ratio 0.6; Anion Gap -1 mmol/L; Blood Urea Nitrogen 31 mg/dL (7-17); Calcium 8.1 mg/dL (8.4-10.2); Carbon Dioxide 30 mmol/L (22-30); Chloride 104 mmol/L (98-107); Globulin 3.7 g/dL; Glucose 129 mg/dL (74-99); Non-African American GFR(CKD) 61 (>60 ml/min/1.73 sqM); Potassium 4.2 mmol/L (3.5-5.1); Sodium 133 mmol/L (137-145)
[2021-11-24 12:26] LABS: AST 31 U/L (14-36); Alkaline Phosphatase 84 U/L (38-126)
[2021-11-24 12:43] LABS: Polychromasia Present
[2021-11-24 12:44] LABS: Poikilocytosis (M) Present
[2021-11-24 17:17] LABS: Glucose,Whole Blood 227 mg/dL (75-99)
--- NOTE | 2021-11-24 20:52 | PN ---
PROGRESS NOTE DATE OF SERVICE: 11/24/2021 REASON FOR FOLLOWUP: Pneumonia. INTERVAL HISTORY: Patient is afebrile. The patient is breathing more comfortably. The patient denies having any chest pain. No worsening cough or sputum production. No abdominal pain. No diarrhea. PHYSICAL EXAMINATION: Blood pressure 131/70 with a pulse of 83, temperature 97.9. She is 93% on room air. General description is an elderly female lying in bed in no distress. Respiratory system: Unlabored breathing, decreased intensity of breath sounds in the bases, no wheeze. Heart S1, S2. Regular rate and rhythm. Abdomen soft, no tenderness. LABS: Hemoglobin is 9.4, white count 4.3, creatinine 0.91. Sputum so far negative. Blood culture negative. DIAGNOSTIC PATIENT: 1. This patient with VRE urinary tract infection that has been adequately treated. Repeat urine is negative. 2. Pneumonia. Concern for possible gram-negative. Sputum has been negative on Cefepime, transition to a short course of oral Ceftin on discharge. MMODL / IJN: [id number] /
[2021-11-24 21:54] LABS: Glucose,Whole Blood 167 mg/dL (75-99)
[2021-11-24] MEDS: MONTELUKAST 10 MG TAB PO SCH (21:54)
[2021-11-24] MEDS: FERROUS SULFATE 325 MG TAB PO SCH (21:54)
[2021-11-25] MEDS: LEVOTHYROXINE 25 MCG TAB PO SCH (06:34)
[2021-11-25 06:53] LABS: Basophils % (A) 1 %; Eosinophils # (A) 0.1 k/uL (0-0.7); Eosinophils % (A) 3 %; HCT 31.8 % (34.0-46.0); HGB 9.6 gm/dL (11.4-16.0); Hypochromasia Marked; Lymphocytes # (A) 1.3 k/uL (1.0-4.8); Lymphocytes % (A) 48 %; MCH 30.4 pg (25.0-35.0); MCHC 30.3 g/dL (31.0-37.0); Macrocytosis Slight; Mean Platelet Volume 7.9; Monocytes # (A) 0.2 k/uL (0-1.0); Monocytes % (A) 9 %; Neutrophils % (A) 36 %; Platelet Count 307 k/uL (150-450); RBC 3.17 m/uL (3.80-5.40); RDW 15.3 % (11.5-15.5); WBC 2.8 k/uL (3.8-10.6)
[2021-11-25 06:57] LABS: MCV 100.4 fL (80.0-100.0)
[2021-11-25 07:37] LABS: Glucose,Whole Blood 93 mg/dL (75-99)
[2021-11-25] MEDS: INSULIN ASPART (NovoLOG) 100 UNIT/ML VIAL SQ SCH ×4 (07:38→20:59)
[2021-11-25] MEDS: ALBUTEROL NEBULIZED 2.5 MG/3 ML INHALATION SCH ×4 (08:20→19:37)
[2021-11-25] MEDS: DICLOFENAC SODIUM GEL 100 GM TUBE TOPICAL SCH ×4 (09:09→21:00)
[2021-11-25] MEDS: amLODIPine 10 MG TAB PO SCH (09:09)
[2021-11-25] MEDS: CHOLECALCIFEROL 25 MCG (1000 IU) TABLET PO SCH (09:09)
[2021-11-25] MEDS: FUROSEMIDE 20 MG TAB PO SCH (09:09)
[2021-11-25] MEDS: DOCUSATE 100 MG CAP PO SCH ×2 (09:09→20:59)
[2021-11-25] MEDS: PANTOPRAZOLE 40 MG/10 ML VIAL IV SCH (09:10)
[2021-11-25] MEDS: EZETIMIBE 10 MG TAB PO SCH (09:10)
[2021-11-25] MEDS: CEFEPIME 2 GM in SODIUM CHLORIDE 0.9% 100 ML IVPB SCH ×2 (09:10→20:59)
[2021-11-25] MEDS: OXYBUTYNIN 10 MG TAB.ER.24 PO SCH (09:10)
[2021-11-25] MEDS: predniSONE 5 MG TAB PO SCH (09:10)
[2021-11-25] MEDS: ENOXAPARIN 40 MG/0.4 ML SYRINGE SQ SCH (09:10)
[2021-11-25] MEDS: METOPROLOL SUCCINATE (ER) 25 MG TAB.ER.24H PO SCH (09:10)
[2021-11-25 09:19] LABS: African American GFR (CKD) 75.7 (60.0-200.0); Albumin 2.5 g/dL (3.8-4.9); Albumin/Globulin Ratio 0.73 (1.60-3.17); Anion Gap 9.3 mmol/L (10.00-18.00); BUN/Creat Ratio 32.87 Ratio (12.00-20.00); Blood Urea Nitrogen 28.2 mg/dL (9.0-27.0); Calcium 8.2 mg/dL (8.7-10.3); Carbon Dioxide 29.8 mmol/L (20.0-27.5); Globulin 3.4 g/dL (1.6-3.3); Non-African American GFR(CKD) 65.3 (60.0-200.0); Total Bilirubin 0.5 mg/dL (0.30-1.20); Total Protein 5.8 g/dL (6.2-8.2)
--- NOTE | 2021-11-25 11:29 | P.PN ---
Subjective Progress Note Date: 11/25/21 Principal diagnosis: Recent hematoma on heparin, acute BLE DVT. IgG kappa paraproteinemia. Anemia of CKD In f/u today pt cont ot improve slowly. She looks well, cooperative, no new physical c/o Objective - Vital Signs Vital signs: Vital Signs Temp 98.4 F 11/25/21 05:00 Pulse 80 11/25/21 08:35 Resp 18 11/25/21 05:00 BP 146/60 11/25/21 05:00 Pulse Ox 94 L 11/25/21 05:00 Intake & Output 11/24/21 11/25/21 11/25/21 18:59 06:59 18:59 Intake Total 540 500 Output Total 1700 1100 Balance -1160 -600 Weight 135.5 kg Intake: Intake, IV Titration 100 Amount Cefepime 2 gm In Sodium 100 Chloride 0.9% 100 ml @ 25 mls/hr IVPB Q12H [facility] Rx# :[id number] Oral 540 400 Output: Urine 1700 1100 Stool 0 Other: Voiding Method External Catheter External Catheter External Catheter # Voids 0 # Bowel Movements 1 0 1 - Constitutional General appearance: Present: cooperative, morbidly obese, no acute distress - EENT Eyes: Present: anicteric sclerae, EOMI ENT: Present: hearing grossly normal - Respiratory Respiratory: bilateral: CTA - Cardiovascular Heart sounds: normal: S1, S2 Abnormal Heart Sounds: Absent: systolic murmur, diastolic murmur, rub, S3 Gallop, S4 Gallop, click, other - Gastrointestinal General gastrointestinal: Present: soft - Integumentary Integumentary Comment(s): bruising noted Integumentary: Present: normal - Neurologic Neurologic: Present: CNII-XII intact - Musculoskeletal Musculoskeletal: Present: generalized weakness - Psychiatric Psychiatric: Present: A&O x's 3, appropriate affect, intact judgment & insight - Labs CBC & Chem 7: 11/25/21 06:06 11/25/21 06:06 Labs: Abnormal Lab Results - Last 24 Hours (Table) 11/24/21 11/24/21 11/24/21 Range/Units 11:34 11:52 11:52 WBC (3.8-10.6) k/uL RBC 3.12 L (3.80-5.40) m/uL Hgb 9.4 L (11.4-16.0) gm/dL Hct 33.1 L (34.0-46.0) % MCV 106.1 H D (80.0-100.0) fL MCHC 28.4 L (31.0-37.0) g/dL RDW 16.1 H (11.5-15.5) % Neutrophils # (1.3-7.7) k/uL Macrocytosis Marked A Sodium 133 L (137-145) mmol/L Carbon Dioxide (20.0-27.5) mmol/L Anion Gap (10.00-18.00) mmol/L BUN 31 H (7-17) mg/dL BUN/Creatinine Ratio (12.00-20.00) Ratio Glucose 129 H (74-99) mg/dL POC Glucose (mg/dL) 136 H (75-99) mg/dL Calcium 8.1 L (8.4-10.2) mg/dL Total Protein 6.0 L (6.3-8.2) g/dL Albumin 2.3 L (3.5-5.0) g/dL Globulin (1.6-3.3) g/dL Albumin/Globulin Ratio (1.60-3.17) g/dL 11/24/21 11/24/21 11/25/21 Range/Units 17:10 21:52 06:06 WBC 2.8 L (3.8-10.6) k/uL RBC 3.17 L (3.80-5.40) m/uL Hgb 9.6 L (11.4-16.0) gm/dL Hct 31.8 L (34.0-46.0) % MCV 100.4 H D (80.0-100.0) fL MCHC 30.3 L (31.0-37.0) g/dL RDW (11.5-15.5) % Neutrophils # 1.0 L (1.3-7.7) k/uL Macrocytosis Sodium (137-145) mmol/L Carbon Dioxide (20.0-27.5) mmol/L Anion Gap (10.00-18.00) mmol/L BUN (7-17) mg/dL BUN/Creatinine Ratio (12.00-20.00) Ratio Glucose (74-99) mg/dL POC Glucose (mg/dL) 227 H 167 H (75-99) mg/dL Calcium (8.4-10.2) mg/dL Total Protein (6.3-8.2) g/dL Albumin (3.5-5.0) g/dL Globulin (1.6-3.3) g/dL Albumin/Globulin Ratio (1.60-3.17) g/dL 11/25/21 Range/Units 06:06 WBC (3.8-10.6) k/uL RBC (3.80-5.40) m/uL Hgb (11.4-16.0) gm/dL Hct (34.0-46.0) % MCV (80.0-100.0) fL MCHC (31.0-37.0) g/dL RDW (11.5-15.5) % Neutrophils # (1.3-7.7) k/uL Macrocytosis Sodium (137-145) mmol/L Carbon Dioxide 29.8 H (20.0-27.5) mmol/L Anion Gap 9.30 L (10.00-18.00) mmol/L BUN 28.2 H (7-17) mg/dL BUN/Creatinine Ratio 32.87 H (12.00-20.00) Ratio Glucose (74-99) mg/dL POC Glucose (mg/dL) (75-99) mg/dL Calcium 8.2 L (8.4-10.2) mg/dL Total Protein 5.8 L (6.3-8.2) g/dL Albumin 2.5 L (3.5-5.0) g/dL Globulin 3.4 H (1.6-3.3) g/dL Albumin/Globulin Ratio 0.73 L (1.60-3.17) g/dL Assessment and Plan (1) DVT (deep venous thrombosis) Narrative/Plan: BLE DVT, acute. S/P IVC filter placement. Cont to hold anticoagulation for recent bleeding. Pt is on DVT prophylaxis CT AP reveals a decrease in previous hematoma. May consider f/u in a few months to verify resolution Current Visit: Yes Status: Acute Priority: High Code(s): I82.409 - ACUTE EMBOLISM AND THOMBOS UNSP DEEP VN UNSP LOWER EXTREMITY SNOMED Code(s): 362058778 (2) Anemia Narrative/Plan: On chart review she was noted to be significantly anemic around February 2021. She is also noted to have an increase in her creatinine at that time as well. Her Hgb was in the 8 range on DC in Oct. It was 8 range this admit. She has required 3 units since admit. Transfusion threshold lower to 6.5 / nationwide shortage of blood. Epo level elevated. Pt s/p 3 doses of parenteral iron around 10/21/21, she was also on oral iron. Recheck iron studies adequate, 1st aranesp 40mcg last week. Ordered SQ weekly for Hgb <11, anemia of CKD. Hgb 9.6 today Current Visit: Yes Status: Acute Priority: High Code(s): D64.9 - ANEMIA, UNSPECIFIED SNOMED Code(s): 822961212 (3) IgG monoclonal gammopathy Narrative/Plan: IgG [place] paraproteinemia 1.25g/dl. Partial CRAB criteria met- anemia, renal failure. Otherwise, Calcium is low/near normal. Bone survey does not show any myeloma lesions. UPEP no specific protein identified. Clinical picture most consistent with MGUS. Labs will be monitored every 1-2 months. Recommend SANDRA for anemia since CKD is a factor in anemia (higher Hgb threshold for SANDRA with diagnosis of CKD). Weekly CBC. The above was reviewed with pt. She verbalized understanding the plan. Current Visit: Yes Status: Acute Priority: High Code(s): D47.2 - [place] L GAMMOPATHY SNOMED Code(s): 236949697
[2021-11-25 11:45] LABS: Glucose,Whole Blood 158 mg/dL (75-99)
[2021-11-25 12:17] VITALS: RESP 16
[2021-11-25 17:28] LABS: Glucose,Whole Blood 150 mg/dL (75-99)
--- NOTE | 2021-11-25 18:27 | P.PN ---
Subjective Progress Note Date: 11/25/21 I am starting care for this patient on 11/11/2020, Dr Muhammad was covering for me This is an 75-year-old female patient who initially presented to the ER with concerns of fever from [facility] facility. Patient was positive for urinary tract infection. COVID-19 was negative. Patient had recent prolonged hospitalization for acute CHF Exacerbation and right lower lobe pneumonia. During that hospitalization patient was maintained on heparin drip for possible non-ST elevated VT and developed secondary abdominal wall hematoma. Patient to cooperate 2 units are PRBCs. Patient also had secondary acute kidney injury and urinary retention. Urine culture positive for group D enterococcus and blood culture positive for staphylococcus epidermis. Patient has been started on IV antibiotics. Infectious disease services were consulted. On 11/11/2021 patient's alert and oriented 3 resting comfortably in bed. Patient remains on IV antibiotics. Patient still having elevated temps. At this time patient denies chest pain or shortness of breath. Diarrhea. Patient denies any urinary burning or frequency On 11/12/2021 patient was seen and examined on the medical floor she is alert and oriented 3 in no apparent distress she had elevated d-dimer lower extremity Doppler revealed bilateral lower extremity DVT she was started on full therapeutic dose of Lovenox this morning her hemoglobin was down to 6.8 she received 1 unit of red blood cell transfusion otherwise she continues to be on IV antibiotics she denies any complaints at this time On 11/13/2009 to patient's alert and oriented 3. She will globin improving to 7.9 status post 1 unit of PRBCs. Definitive plans for IVC filter. Hematology and vascular surgery following. Patient remains on IV antibiotics. At that t verena patient denies chest pain.. Patient denies shortness breath. Patient denies nausea vomiting or diarrhea. Patient denies any urinary burning or frequency On 11/14/2021. Patient's alert and oriented 3. Patient to undergo IVC filter today. On 11/15/2021 status post IVC filter. Patient is currently sitting up in chair. Patient alert and oriented 3. Patient remains on subcu Lovenox 100 every 12 hours. hgb 6.9. 1 unit PRBCs have been ordered. Patient remains on IV daptomycin. Patient complaining of hip pain which apparently is chronic for her order additional pain medication. Patient denies chest pain or shortness breath. Patient. Patient denies any urinary burning or frequency On 11/16/2021 patient was seen and examined on the medical floor, she is complaining of pain in the right hip area otherwise she denies any complaints there is no fever or chills no headache or dizziness no chest pain no shortness of breath no cough no nausea or vomiting no abdominal pain no diarrhea no blood in the stools no burning with urination no frequency or urgency and no hematuria. Hemoglobin is stable today at 8.3. Per Dr. Wang with recommendation, full dose Lovenox was discontinued yesterday, she will be started on Lovenox 40 mg subcu daily today, will check x-ray of the right hip, patient was given Voltaren gel to the right hip per her request On 11/17/2021 patient is alert and oriented 3. Patient had episode of elevated heart rate in the 150s. A team was called. Patient also currently getting treated for pneumonia. At this time will transfer patient to cardiac stepdown unit. Telemetry ordered. Stat labs ordered. Cardiology consult in place. Patient reports improvement. Patient denies chest pain. At this time cardiology, pulmonary, infectious disease and hematology services are following. On 11/18/2021 patient was seen and examined on the medical floor she is alert and oriented 3 in no apparent distress there is no fever or chills no headache or dizziness no chest pain no shortness of breath no cough no nausea or vomiting no abdominal pain no diarrhea no blood in the stools will burning with urination no frequency or urgency no hematuria. Hemoglobin is stable at 7.8. Input from multiple specialists review, patient will be restarted on Lovenox at 40 mg subcu once daily, will continue to follow closely. On 11/19/2021 patient is alert and oriented 3. Hemoglobin today 7.4. Heart rate improved. Patient denies chest pain or shortness breath. Patient denies nausea vomiting or diarrhea. Patient denies any urinary burning or frequency. On 11/20/2021 patient's alert and oriented 3. Hgb 6.9. Bone survey and 24- hour urine ordered per hematology services to rule out multiple myeloma. Patient denies chest pain or shortness of breath. Patient denies nausea vomiting or diarrhea. Patient denies any urinary burning or frequency. Patient has been transitioned to by mouth Lasix. On 11/21/2021 patient was seen and examined on the medical floor she is alert and oriented 3 in no apparent distress she denies any specific complaints at this time, vital examination reveals a temperature of 98.2 pulse 92 respiration 16 blood pressure 118/57 pulse ox 92% on room air. Hemoglobin is 8.7 platelet count 309 white blood count 4.8 BUN 31 creatinine 0.94 On 11/22/2021 patient's alert and oriented 3. Patient reports she is feeling improved. Patient remains on IV Maxipime. Labs for today currently pending. Denies chest pain or shortness of breath. Patient denies nausea vomiting or diarrhea. Patient denies any urinary burning or frequency On 11/23/2021 patient was seen and examined on the medical floor she is alert and oriented 3 in no apparent distress she is still complaining of abdominal discomfort otherwise she denies any complaints at this time there is no fever or chills no headache or dizziness no chest pain no shortness of breath no cough no nausea or vomiting no diarrhea no blood in the stools no burning with urination no frequency or urgency and no hematuria. Hemoglobin today 9.3 we will continue to monitor On 11/24/2021 patient's alert and oriented 3. Patient denies chest pain or shortness breath. Patient denies nausea vomiting or diarrhea. Patient denies any urinary burning or frequency. Per infectious disease patient will likely transition to oral Ceftin upon discharge On 11/25/2021 patient was seen and examined on the medical floor she is alert and oriented 3 in no apparent distress there is no fever or chills no headache or dizziness no chest pain no shortness of breath no cough no nausea or vomiting no abdominal pain no diarrhea and no urinary symptoms. Patient is improving gradually possible [facility] tomorrow. Objective - Vital Signs Vital signs: Vital Signs Temp 98.4 F 11/25/21 05:00 Pulse 80 11/25/21 08:35 Resp 18 11/25/21 05:00 BP 146/60 11/25/21 05:00 Pulse Ox 94 L 11/25/21 05:00 Intake & Output 11/24/21 11/25/21 11/25/21 18:59 06:59 18:59 Intake Total 540 500 Output Total 1700 1100 Balance -1160 -600 Weight 135.5 kg Intake: Intake, IV Titration 100 Amount Cefepime 2 gm In Sodium 100 Chloride 0.9% 100 ml @ 25 mls/hr IVPB Q12H [facility] Rx# :[id number] Oral 540 400 Output: Urine 1700 1100 Stool 0 Other: Voiding Method External Catheter External Catheter # Voids 0 # Bowel Movements 1 0 1 - Exam Head normocephalic Neck supple Lungs clear to auscultation bilaterally no wheezing or crackles Heart regular rate and rhythm S1-S2, no rub or gallop Abdomen is soft nontender nondistended positive bowel sounds no hepatosplenomegaly Extremities no edema Neuro alert and orientated to 3 - Labs CBC & Chem 7: 11/25/21 06:06 11/25/21 06:06 Labs: Abnormal Lab Results - Last 24 Hours (Table) 11/24/21 11/24/21 11/24/21 Range/Units 11:34 11:52 11:52 WBC (3.8-10.6) k/uL RBC 3.12 L (3.80-5.40) m/uL Hgb 9.4 L (11.4-16.0) gm/dL Hct 33.1 L (34.0-46.0) % MCV 106.1 H D (80.0-100.0) fL MCHC 28.4 L (31.0-37.0) g/dL RDW 16.1 H (11.5-15.5) % Neutrophils # (1.3-7.7) k/uL Macrocytosis Marked A Sodium 133 L (137-145) mmol/L Carbon Dioxide (20.0-27.5) mmol/L Anion Gap (10.00-18.00) mmol/L BUN 31 H (7-17) mg/dL BUN/Creatinine Ratio (12.00-20.00) Ratio Glucose 129 H (74-99) mg/dL POC Glucose (mg/dL) 136 H (75-99) mg/dL Calcium 8.1 L (8.4-10.2) mg/dL Total Protein 6.0 L (6.3-8.2) g/dL Albumin 2.3 L (3.5-5.0) g/dL Globulin (1.6-3.3) g/dL Albumin/Globulin Ratio (1.60-3.17) g/dL 11/24/21 11/24/21 11/25/21 Range/Units 17:10 21:52 06:06 WBC 2.8 L (3.8-10.6) k/uL RBC 3.17 L (3.80-5.40) m/uL Hgb 9.6 L (11.4-16.0) gm/dL Hct 31.8 L (34.0-46.0) % MCV 100.4 H D (80.0-100.0) fL MCHC 30.3 L (31.0-37.0) g/dL RDW (11.5-15.5) % Neutrophils # 1.0 L (1.3-7.7) k/uL Macrocytosis Sodium (137-145) mmol/L Carbon Dioxide (20.0-27.5) mmol/L Anion Gap (10.00-18.00) mmol/L BUN (7-17) mg/dL BUN/Creatinine Ratio (12.00-20.00) Ratio Glucose (74-99) mg/dL POC Glucose (mg/dL) 227 H 167 H (75-99) mg/dL Calcium (8.4-10.2) mg/dL Total Protein (6.3-8.2) g/dL Albumin (3.5-5.0) g/dL Globulin (1.6-3.3) g/dL Albumin/Globulin Ratio (1.60-3.17) g/dL 11/25/21 Range/Units 06:06 WBC (3.8-10.6) k/uL RBC (3.80-5.40) m/uL Hgb (11.4-16.0) gm/dL Hct (34.0-46.0) % MCV (80.0-100.0) fL MCHC (31.0-37.0) g/dL RDW (11.5-15.5) % Neutrophils # (1.3-7.7) k/uL Macrocytosis Sodium (137-145) mmol/L Carbon Dioxide 29.8 H (20.0-27.5) mmol/L Anion Gap 9.30 L (10.00-18.00) mmol/L BUN 28.2 H (7-17) mg/dL BUN/Creatinine Ratio 32.87 H (12.00-20.00) Ratio Glucose (74-99) mg/dL POC Glucose (mg/dL) (75-99) mg/dL Calcium 8.2 L (8.4-10.2) mg/dL Total Protein 5.8 L (6.3-8.2) g/dL Albumin 2.5 L (3.5-5.0) g/dL Globulin 3.4 H (1.6-3.3) g/dL Albumin/Globulin Ratio 0.73 L (1.60-3.17) g/dL Assessment and Plan Assessment: 1. Fever secondary to urinary tract infection with sepsis 2. Positive blood culture. Possible contamination per infectious disease 3. Recent prolonged hospitalization for CHF and pneumonia 4. Recent abdominal hematoma secondary to heparin drip 5. History of Acute kidney injury 6. History of CVA 7. History of diabetes mellitus type 2 8. History of rheumatoid arthritis 9. Essential hypertension 10. Lower extremity DVTs. Status post IVC filter placement 11/14/2021. 11. Sinus tachycardia with heart rate in the 150s. Cardiology consult placed 12. Elevated troponin. Telemetry ordered and patient transfer to higher level care selective care unit 13. Pneumonia. Infectious disease services are following patient remains on cefepime Patient maintained on IV antibiotics Cardiology, pulmonary, infectious disease and hematology services are following Repeat labs ordered discharge planning in progress patient will likely return to ECF facility
[2021-11-25 20:10] LABS: Glucose,Whole Blood 161 mg/dL (75-99)
[2021-11-25] MEDS: FERROUS SULFATE 325 MG TAB PO SCH (20:59)
[2021-11-25] MEDS: MONTELUKAST 10 MG TAB PO SCH (20:59)
[2021-11-26] MEDS: LEVOTHYROXINE 25 MCG TAB PO SCH (06:16)
[2021-11-26 06:39] LABS: Basophils % (A) 1 %; Eosinophils # (A) 0.1 k/uL (0-0.7); Eosinophils % (A) 4 %; HCT 30.8 % (34.0-46.0); HGB 9.4 gm/dL (11.4-16.0); Hypochromasia Moderate; Lymphocytes # (A) 1.6 k/uL (1.0-4.8); Lymphocytes % (A) 49 %; MCH 29.8 pg (25.0-35.0); MCHC 30.6 g/dL (31.0-37.0); MCV 97.4 fL (80.0-100.0); Macrocytosis Slight; Mean Platelet Volume 7.6; Monocytes # (A) 0.2 k/uL (0-1.0); Monocytes % (A) 7 %; Neutrophils # (A) 1.1 k/uL (1.3-7.7); Neutrophils % (A) 35 %; Platelet Count 288 k/uL (150-450); RBC 3.16 m/uL (3.80-5.40); RDW 15.9 % (11.5-15.5); WBC 3.2 k/uL (3.8-10.6)
[2021-11-26] MEDS: ALBUTEROL NEBULIZED 2.5 MG/3 ML INHALATION SCH ×2 (07:16→10:52)
[2021-11-26 07:31] LABS: Glucose,Whole Blood 91 mg/dL (75-99)
[2021-11-26] MEDS: INSULIN ASPART (NovoLOG) 100 UNIT/ML VIAL SQ SCH (07:38)
[2021-11-26] MEDS: amLODIPine 10 MG TAB PO SCH (09:09)
[2021-11-26] MEDS: DOCUSATE 100 MG CAP PO SCH (09:09)
[2021-11-26] MEDS: ENOXAPARIN 40 MG/0.4 ML SYRINGE SQ SCH (09:09)
[2021-11-26] MEDS: PANTOPRAZOLE 40 MG/10 ML VIAL IV SCH (09:09)
[2021-11-26] MEDS: FUROSEMIDE 20 MG TAB PO SCH (09:09)
[2021-11-26] MEDS: METOPROLOL SUCCINATE (ER) 25 MG TAB.ER.24H PO SCH (09:09)
[2021-11-26] MEDS: CHOLECALCIFEROL 25 MCG (1000 IU) TABLET PO SCH (09:09)
[2021-11-26] MEDS: CEFEPIME 2 GM in SODIUM CHLORIDE 0.9% 100 ML IVPB SCH (09:09)
[2021-11-26] MEDS: OXYBUTYNIN 10 MG TAB.ER.24 PO SCH (09:10)
[2021-11-26] MEDS: DICLOFENAC SODIUM GEL 100 GM TUBE TOPICAL SCH (09:10)
[2021-11-26] MEDS: predniSONE 5 MG TAB PO SCH (09:10)
[2021-11-26] MEDS: EZETIMIBE 10 MG TAB PO SCH (09:10)
--- NOTE | 2021-11-26 10:54 | P.DS ---
Providers Date of admission: 11/09/21 15:17 Expected date of discharge: 11/26/21 Attending physician: Nenita Shelby Consults: 11/10/21 15:16 Consult Physician Routine Consulting Provider: Luis Angel Alicea Consult Reason/Comments: positive blood cultures Do you want consulting provider notified?: Yes 11/11/21 11:36 Consult Physician Routine Consulting Provider: Janes Alcantar Consult Reason/Comments: elevated d-dimer Do you want consulting provider notified?: Yes 11/11/21 15:31 Consult Physician Routine Consulting Provider: Neo Guerin V Consult Reason/Comments: recent [place], LE DVT, recent hematoma Do you want consulting provider notified?: Yes 11/11/21 15:32 Consult Physician Routine Consulting Provider: Chadd Wang Consult Reason/Comments: LE DVT, recent hematoma Do you want consulting provider notified?: Yes 11/12/21 12:27 Consult Physician Routine Consulting Provider: Bruno Lizama Consult Reason/Comments: Revent abd bleed, now BLE DVT Do you want consulting provider notified?: Yes 11/17/21 07:47 Consult Physician Stat Consulting Provider: Janes Alcantar Consult Reason/Comments: sob, a team, hr 150's Do you want consulting provider notified?: Already Contacted 11/17/21 08:20 Consult Physician Stat Consulting Provider: [facility] Consult Reason/Comments: CHF, dyspnea, elevated troponin Do you want consulting provider notified?: Yes Primary care physician: Nenita Shelby [facility] Course: Diagnosis on discharge: 1. Fever secondary to urinary tract infection with sepsis 2. Positive blood culture. Possible contamination per infectious disease 3. Recent prolonged hospitalization for CHF and pneumonia 4. Recent abdominal hematoma secondary to heparin drip 5. History of Acute kidney injury 6. History of CVA 7. History of diabetes mellitus type 2 8. History of rheumatoid arthritis 9. Essential hypertension 10. Bilateral Lower extremity DVTs. Status post IVC filter placement 11/14/2021. not able to tolerate anticoagulation at this time due to abdominal wall hematoma and anemia requiring blood transfusion. 11. Sinus tachycardia with heart rate in the 150s. Cardiology consult placed 12. Elevated troponin. Telemetry ordered and patient transfer to higher level care selective care unit 13. Pneumonia. Infectious disease services are following patient remains on c efepime, switched to Cefdinir at the time of discharge. Hospital course: This is an 75-year-old female patient who initially presented to the ER with concerns of fever from [facility] facility. Patient was positive for urinary tract infection. COVID-19 was negative. Patient had recent prolonged hospitalization for acute CHF Exacerbation and right lower lobe pneumonia. During that hospitalization patient was maintained on heparin drip for possible non-ST elevated [place] and developed secondary abdominal wall hematoma. Patient to cooperate 2 units are PRBCs. Patient also had secondary acute kidney injury and urinary retention. Urine culture positive for group D enterococcus and blood culture positive for staphylococcus epidermis. Patient has been started on IV antibiotics. Infectious disease services were consulted. On 11/11/2021 patient's alert and oriented 3 resting comfortably in bed. Patient remains on IV antibiotics. Patient still having elevated temps. At this time patient denies chest pain or shortness of breath. Diarrhea. Patient denies any urinary burning or frequency On 11/12/2021 patient was seen and examined on the medical floor she is alert and oriented 3 in no apparent distress she had elevated d-dimer lower extremity Doppler revealed bilateral lower extremity DVT she was started on full therapeutic dose of Lovenox this morning her hemoglobin was down to 6.8 she received 1 unit of red blood cell transfusion otherwise she continues to be on IV antibiotics she denies any complaints at this time On 11/13/2009 to patient's alert and oriented 3. She will globin improving to 7.9 status post 1 unit of PRBCs. Definitive plans for IVC filter. Hematology and vascular surgery following. Patient remains on IV antibiotics. At that time patient denies chest pain.. Patient denies shortness breath. Patient denies nausea vomiting or diarrhea. Patient denies any urinary burning or frequency On 11/14/2021. Patient's alert and oriented 3. Patient to undergo IVC filter today. On 11/15/2021 status post IVC filter. Patient is currently sitting up in chair. Patient alert and oriented 3. Patient remains on subcu Lovenox 100 every 12 hours. hgb 6.9. 1 unit PRBCs have been ordered. Patient remains on IV daptomycin. Patient complaining of hip pain which apparently is chronic for her order additional pain medication. Patient denies chest pain or shortness breath. Patient. Patient denies any urinary burning or frequency On 11/16/2021 patient was seen and examined on the medical floor, she is complai curry of pain in the right hip area otherwise she denies any complaints there is no fever or chills no headache or dizziness no chest pain no shortness of breath no cough no nausea or vomiting no abdominal pain no diarrhea no blood in the stools no burning with urination no frequency or urgency and no hematuria. Hemoglobin is stable today at 8.3. Per Dr. Wang with recommendation, full dose Lovenox was discontinued yesterday, she will be started on Lovenox 40 mg subcu daily today, will check x-ray of the right hip, patient was given Voltaren gel to the right hip per her request On 11/17/2021 patient is alert and oriented 3. Patient had episode of elevated heart rate in the 150s. A team was called. Patient also currently getting treated for pneumonia. At this time will transfer patient to cardiac stepdown unit. Telemetry ordered. Stat labs ordered. Cardiology consult in place. Patient reports improvement. Patient denies chest pain. At this time cardiology, pulmonary, infectious disease and hematology services are following. On 11/18/2021 patient was seen and examined on the medical floor she is alert and oriented 3 in no apparent distress there is no fever or chills no headache or dizziness no chest pain no shortness of breath no cough no nausea or vomiting no abdominal pain no diarrhea no blood in the stools will burning with urination no frequency or urgency no hematuria. Hemoglobin is stable at 7.8. Input from multiple specialists review, patient will be restarted on Lovenox at 40 mg subcu once daily, will continue to follow closely. On 11/19/2021 patient is alert and oriented 3. Hemoglobin today 7.4. Heart rate improved. Patient denies chest pain or shortness breath. Patient denies nausea vomiting or diarrhea. Patient denies any urinary burning or frequency. On 11/20/2021 patient's alert and oriented 3. Hgb 6.9. Bone survey and 24- hour urine ordered per hematology services to rule out multiple myeloma. Patient denies chest pain or shortness of breath. Patient denies nausea vomiting or diarrhea. Patient denies any urinary burning or frequency. Patient has been transitioned to by mouth Lasix. On 11/21/2021 patient was seen and examined on the medical floor she is alert and oriented 3 in no apparent distress she denies any specific complaints at this time, vital examination reveals a temperature of 98.2 pulse 92 respiration 16 blood pressure 118/57 pulse ox 92% on room air. Hemoglobin is 8.7 platelet count 309 white blood count 4.8 BUN 31 creatinine 0.94 On 11/22/2021 patient's alert and oriented 3. Patient reports she is feeling improved. Patient remains on IV Maxipime. Labs for today currently pending. Denies chest pain or shortness of breath. Patient denies nausea vomiting or diarrhea. Patient denies any urinary burning or frequency On 11/23/2021 patient was seen and examined on the medical floor she is alert and oriented 3 in no apparent distress she is still complaining of abdominal discomfort otherwise she denies any complaints at this time there is no fever or chills no headache or dizziness no chest pain no shortness of breath no cough no nausea or vomiting no diarrhea no blood in the stools no burning with urination no frequency or urgency and no hematuria. Hemoglobin today 9.3 we will continue to monitor On 11/24/2021 patient's alert and oriented 3. Patient denies chest pain or shortness breath. Patient denies nausea vomiting or diarrhea. Patient denies any urinary burning or frequency. Per infectious disease patient will likely transition to oral Ceftin upon discharge On 11/25/2021 patient was seen and examined on the medical floor she is alert and oriented 3 in no apparent distress there is no fever or chills no headache or dizziness no chest pain no shortness of breath no cough no nausea or vomiting no abdominal pain no diarrhea and no urinary symptoms. Patient is improving gradually possible discharge back to long term in a.m. tomorrow. On 11/26/2021 patient was seen and examined on the medical floor she is alert and oriented 3 in no apparent distress there is no fever or chills no headache or dizziness no chest pain no shortness of breath no cough no nausea or vomiting no abdominal pain no diarrhea and no urinary symptoms. Patient is improving gradually, plan for transfer to long term today. Patient Condition at Discharge: Serious Plan - Discharge Summary Discharge Rx Participant: Yes New Discharge Prescriptions: New Darbepoetin Warner [Aranesp] 40 mcg SQ WEEKLY #4 each Furosemide [Lasix] 60 mg PO DAILY tab INSULIN ASPART (NovoLOG) [NovoLOG (formulary)] 0 unit SQ ACHS ml Albuterol Nebulized [Ventolin Nebulized] 2.5 mg INHALATION RT-QID ml Cefdinir 300 mg PO Q12HR 10 Days #20 cap Continue Metoprolol Succinate (ER) [Toprol XL] 25 mg PO DAILY Montelukast [Singulair] 10 mg PO HS #30 tab Tolterodine ER [Detrol LA] 4 mg PO DAILY Albuterol Inhaler [Ventolin Hfa Inhaler] 1 - 2 puff INHALATION RT-QID PRN PRN Reason: Shortness Of Breath Ferrous Sulfate [Iron (65 MG Elemental)] 325 mg PO HS guaiFENesin [Diabetic Tussin] 200 mg PO Q6H PRN PRN Reason: Cough Levothyroxine Sodium [Synthroid] 25 mcg PO DAILY@0600 Cholecalciferol [Vitamin D3 (25 Mcg = 1000 Iu)] 50 mcg PO DAILY Ezetimibe [Zetia] 10 mg PO DAILY amLODIPine [Norvasc] 10 mg PO DAILY tab Glucagon Emergency Kit 1 mg IM ONCE PRN PRN Reason: Hypoglycemia Oxymetazoline 0.05% Nasl [place] [Afrin 0.05% Nasal [place]] 1 spray EA NOSTRIL Q4H PRN PRN Reason: nose bleeds Acetaminophen Tab [Tylenol] 1,000 mg PO Q6H PRN PRN Reason: Fever And/ Or Pain prednisoLONE ACETATE 1% OPHTH [Pred Forte 1%] 1 drop BOTH EYES QID Docusate [Colace] 100 mg PO BID cap Pantoprazole Sodium [Protonix] 40 mg PO DAILY 30 Days #30 tab predniSONE 5 mg PO DAILY Discontinued glipiZIDE [Glucotrol] 5 mg PO TID@0900,1300,2100 Furosemide [Lasix] 40 mg PO DAILY 30 Days #30 tablet Cefuroxime Axetil [Ceftin] 500 mg PO BID 7 Days #14 tab Dextrose/Dextrin/Maltose [Insta-Glucose Gel] 31 gm PO ONCE PRN PRN Reason: Hypoglycemia Discharge Medication List Metoprolol Succinate (ER) [Toprol XL] 25 mg PO DAILY 05/14/19 [History] Montelukast [Singulair] 10 mg PO HS #30 tab 05/24/19 [Rx] Albuterol Inhaler [Ventolin Hfa Inhaler] 1 - 2 puff INHALATION RT-QID PRN 06/14/20 [History] Tolterodine ER [Detrol LA] 4 mg PO DAILY 06/14/20 [History] Ferrous Sulfate [Iron (65 MG Elemental)] 325 mg PO HS 02/16/21 [History] Acetaminophen Tab [Tylenol] 1,000 mg PO Q6H PRN 10/13/21 [History] Cholecalciferol [Vitamin D3 (25 Mcg = 1000 Iu)] 50 mcg PO DAILY 10/13/21 [History] Ezetimibe [Zetia] 10 mg PO DAILY 10/13/21 [History] Levothyroxine Sodium [Synthroid] 25 mcg PO DAILY@0600 10/13/21 [History] guaiFENesin [Diabetic Tussin] 200 mg PO Q6H PRN 10/13/21 [History] prednisoLONE ACETATE 1% OPHTH [Pred Forte 1%] 1 drop BOTH EYES QID 10/13/21 [History] Docusate [Colace] 100 mg PO BID cap 10/25/21 [Rx] Pantoprazole Sodium [Protonix] 40 mg PO DAILY 30 Days #30 tab 10/25/21 [Rx] amLODIPine [Norvasc] 10 mg PO DAILY tab 10/25/21 [Rx] Glucagon Emergency Kit 1 mg IM ONCE PRN 11/09/21 [History] Oxymetazoline 0.05% Nasl [place] [Afrin 0.05% Nasal [place]] 1 spray EA NOSTRIL Q4H PRN 11/09/21 [History] predniSONE 5 mg PO DAILY 11/09/21 [History] Darbepoetin Warner [Aranesp] 40 mcg SQ WEEKLY #4 each 11/21/21 [Rx] Albuterol Nebulized [Ventolin Nebulized] 2.5 mg INHALATION RT-QID ml 11/26/21 [Rx] Cefdinir 300 mg PO Q12HR 10 Days #20 cap 11/26/21 [Rx] Furosemide [Lasix] 60 mg PO DAILY tab 11/26/21 [Rx] INSULIN ASPART (NovoLOG) [NovoLOG (formulary)] 0 unit SQ ACHS ml 11/26/21 [Rx] Follow up Appointment(s)/Referral(s): Noreen Roman MD [STAFF PHYSICIAN] - 2 Weeks Nenita Shelby MD [Primary Care Provider] - 1-2 days Madhu Farris MD [STAFF PHYSICIAN] - 4 Weeks Activity/Diet/Wound Care/Special Instructions: Per Hematology - Weekly CBC - Aranesp 40mcg SQ weekly (last dose 11/21/21) for a hemoglobin <11
[2021-11-26 11:45] VITALS: BP 111/68; PULSE 91; TEMP 98.3
[2021-11-26 11:56] LABS: African American GFR (CKD) 72.6 (60.0-200.0); Albumin 2.4 g/dL (3.8-4.9); Albumin/Globulin Ratio 0.7 (1.60-3.17); Anion Gap 11.9 mmol/L (10.00-18.00); BUN/Creat Ratio 33.52 Ratio (12.00-20.00); Blood Urea Nitrogen 29.8 mg/dL (9.0-27.0); Calcium 8.2 mg/dL (8.7-10.3); Carbon Dioxide 27.1 mmol/L (20.0-27.5); Globulin 3.4 g/dL (1.6-3.3); Non-African American GFR(CKD) 62.6 (60.0-200.0); Potassium 4.2 mmol/L (3.5-5.5); Total Bilirubin 0.4 mg/dL (0.30-1.20); Total Protein 5.8 g/dL (6.2-8.2)
--- NOTE | 2021-11-26 12:38 | P.PN ---
Progress Note - Text Progress Note Date: 11/25/21 REASON FOR FOLLOWUP: Pneumonia. INTERVAL HISTORY: Patient remains to be afebrile. The patient is breathing comfortably on room air. The patient denies having any chest pain. The patient did have occasional cough but no sputum production. No abdominal pain.No diarrhea. PHYSICAL EXAMINATION: Blood pressure 135/75 with a pulse of 83, temperature 97.9. She is 93% on room air. General description is an elderly female lying in bed in no distress. Respiratory system: Unlabored breathing, decreased intensity of breath sounds in the bases, no wheeze. Heart S1, S2. Regular rate and rhythm. Abdomen soft, no tenderness. LABS: Hemoglobin 9.6, white count 2.8, creatinine 0.9 DIAGNOSTIC PATIENT: 1. This patient with VRE urinary tract infection that has been adequately treated. Repeat urine is negative. 2. Pneumonia. Concern for possible gram-negative however sputum was usual respiratory alexsandra, patient is currently on cefepime, transition to a short course of oral Ceftin on discharge
--- NOTE | 2021-11-26 12:38 | P.PN ---
Progress Note - Text Progress Note Date: 11/26/21 REASON FOR FOLLOWUP: Pneumonia. INTERVAL HISTORY: Patient remains to be afebrile. The patient is breathing comfortably on room air. The patient denies having any chest pain. The patient did have occasional cough but no sputum production. No abdominal pain.No diarrhea. PHYSICAL EXAMINATION: Blood pressure 135/75 with a pulse of 83, temperature 97.9. She is 93% on room air. General description is an elderly female lying in bed in no distress. Respiratory system: Unlabored breathing, decreased intensity of breath sounds in the bases, no wheeze. Heart S1, S2. Regular rate and rhythm. Abdomen soft, no tenderness. LABS: Hemoglobin 9.6, white count 2.8, creatinine 0.9 DIAGNOSTIC PATIENT: 1. This patient with VRE urinary tract infection that has been adequately treated. Repeat urine is negative. 2. Pneumonia. Concern for possible gram-negative however sputum was usual respiratory alexsandra, patient is currently on cefepime, transition to a short course of oral Ceftin on discharge
== END 2021-11-26 12:33 | DRG 698 ==
LOC: EC 13:03 → 5NMEDONC 15:17 → 3SCARD 11-17 15:24 → 5NMEDONC 11-22 22:14
PROVIDERS: ADMIT Internal Medicine; ATTEND Internal Medicine
PROC: 30233N1 Transfusion of Nonautologous Red Blood Cells into Peripheral Vein, Percutaneous Approach (ICD-10-PCS; 2021-11-12)
PROC: 06H03DZ Insertion of Intraluminal Device into Inferior Vena Cava, Percutaneous Approach (ICD-10-PCS; principal; 2021-11-14 11:00)
PROC: B5191ZZ Fluoroscopy of Inferior Vena Cava using Low Osmolar Contrast (ICD-10-PCS; principal; 2021-11-14 11:00)
DX: T83.511A Infection and inflammatory reaction due to indwelling urethral catheter, initial encounter (principal); A41.1 Sepsis due to other specified staphylococcus; I50.33 Acute on chronic diastolic (congestive) heart failure; E87.1 Hypo-osmolality and hyponatremia; I13.0 Hypertensive heart and chronic kidney disease with heart failure and stage 1 through stage 4 chronic kidney disease, or unspecified chronic kidney disease; Z16.21 Resistance to vancomycin; N17.9 Acute kidney failure, unspecified; I82.419 Acute embolism and thrombosis of unspecified femoral vein; I82.403 Acute embolism and thrombosis of unspecified deep veins of lower extremity, bilateral; D47.2 Monoclonal gammopathy; D63.1 Anemia in chronic kidney disease; D89.2 Hypergammaglobulinemia, unspecified; E11.22 Type 2 diabetes mellitus with diabetic chronic kidney disease; E66.9 Obesity, unspecified; E78.5 Hyperlipidemia, unspecified; E83.42 Hypomagnesemia; I25.2 Old myocardial infarction; I48.91 Unspecified atrial fibrillation; Z95.828 Presence of other vascular implants and grafts; Z90.49 Acquired absence of other specified parts of digestive tract; Z87.440 Personal history of urinary (tract) infections; Z86.73 Personal history of transient ischemic attack (TIA), and cerebral infarction without residual deficits; Z86.718 Personal history of other venous thrombosis and embolism; Z82.49 Family history of ischemic heart disease and other diseases of the circulatory system; Z80.0 Family history of malignant neoplasm of digestive organs; Z79.899 Other long term (current) drug therapy; Z79.890 Hormone replacement therapy; Z79.84 Long term (current) use of oral hypoglycemic drugs; Z79.4 Long term (current) use of insulin; Z20.822 Contact with and (suspected) exposure to COVID-19; Y84.6 Urinary catheterization as the cause of abnormal reaction of the patient, or of later complication, without mention of misadventure at the time of the procedure; N39.0 Urinary tract infection, site not specified; N18.9 Chronic kidney disease, unspecified; M06.9 Rheumatoid arthritis, unspecified; J45.909 Unspecified asthma, uncomplicated; R79.89 Other specified abnormal findings of blood chemistry
CPT/HCPCS: 36415; 37191; 71045; 71046; 73502; 74176; 77075; 78580; 80048; 80053; 81001; 81050; 82530; 82607; 82668; 82746; 82784; 83540; 83550; 83605; 83615; 83735; 83880; 83883; 83921; 84145; 84156; 84165; 84166; 84484; 85025; 85045; 85379; 85610; 85730; 86140; 86334; 86850; 86900; 86901; 86920; 87040; 87070; 87077; 87086; 87186; 87205; 87502; 87635; 93005; 93308; 93970; 94640; 94760; 96374; 99291

== ENCOUNTER 2021-12-23 19:57 | Emergency (ER) | payer MEDICARE ==
[2021-12-23 20:07] VITALS: RESP 18; TEMP 98
--- NOTE | 2021-12-23 20:54 | XR ---
EXAMINATION TYPE: XR chest 1V portable DATE OF EXAM: 12/23/2021 COMPARISON: 11/17/2021 HISTORY: Syncope TECHNIQUE: Single view FINDINGS: Heart is normal. There is slight blunting left costophrenic angle. There is no heart failur e. There are no hilar masses. Thoracic aorta is atheromatous. IMPRESSION: There is mild pleural reaction left lung base. There is clearing of the pulmonary edema a nd most of the pleural fluid compared to old exam.
[2021-12-23 21:33] LABS: Basophils # (A) 0.1 k/uL (0-0.2); Basophils % (A) 1 %; Eosinophils # (A) 0.1 k/uL (0-0.7); Eosinophils % (A) 1 %; HGB 10.3 gm/dL (11.4-16.0); Lymphocytes # (A) 1.9 k/uL (1.0-4.8); Lymphocytes % (A) 25 %; MCHC 32.2 g/dL (31.0-37.0); MCV 96.1 fL (80.0-100.0); Mean Platelet Volume 7.6; Monocytes # (A) 0.4 k/uL (0-1.0); Monocytes % (A) 6 %; Neutrophils # (A) 4.9 k/uL (1.3-7.7); Neutrophils % (A) 66 %; Platelet Count 289 k/uL (150-450); RBC 3.33 m/uL (3.80-5.40); RDW 13.3 % (11.5-15.5); WBC 7.4 k/uL (3.8-10.6)
[2021-12-23 21:47] LABS: Albumin 3.4 g/dL (3.5-5.0); Calcium 8.4 mg/dL (8.4-10.2); Potassium 4.3 mmol/L (3.5-5.1); Total Bilirubin 0.7 mg/dL (0.2-1.3); Total Protein 7.5 g/dL (6.3-8.2)
--- NOTE | 2021-12-23 21:47 | ED ---
General Adult HPI - General Chief complaint: Syncope Stated complaint: Syncope Time Seen by Provider: 12/23/21 20:01 Source: patient, EMS, RN notes reviewed, old records reviewed Mode of arrival: EMS - History of Present Illness Initial comments: 76-year-old female from senior care with near syncopal episode after having a bowel movement. Patient denies fever. Denies chest pain or palpitations. She states she did have some nausea and vomiting associated with the incident. No prior vomiting or diarrhea. Patient feels back to normal at the time my evaluation. - Related Data Home Medications Medication Instructions Recorded Confirmed Metoprolol Succinate (ER) [Toprol 25 mg PO DAILY@89905/14/19 12/23/21 XL] Albuterol Inhaler [Ventolin Hfa 1 - 2 puff INHALATION RT-Q6H PRN 06/14/20 12/23/21 Inhaler] Tolterodine ER [Detrol LA] 4 mg PO DAILY@0906/14/20 12/23/21 Ferrous Sulfate [Iron (65 MG 325 mg PO HS@209902/16/21 12/23/21 Elemental)] Acetaminophen Tab [Tylenol] 1,000 mg PO Q6H PRN 10/13/21 12/23/21 Cholecalciferol [Vitamin D3 (25 50 mcg PO DAILY@89910/13/21 12/23/21 Mcg = 1000 Iu)] Ezetimibe [Zetia] 10 mg PO HS@2100 10/13/21 12/23/21 Levothyroxine Sodium [Synthroid] 25 mcg PO DAILY@59910/13/21 12/23/21 guaiFENesin [Diabetic Tussin] 200 mg PO Q6H PRN 10/13/21 12/23/21 Glucagon Emergency Kit 1 mg IM ONCE PRN 11/09/21 12/23/21 Oxymetazoline 0.05% Nasl [place] 1 spray EA NOSTRIL Q4H PRN 11/09/21 12/23/21 [Afrin 0.05% Nasal [place]] predniSONE 5 mg PO DAILY@0900 11/09/21 12/23/21 Clotrimazole/Betamethasone Dip 1 applic TOPICAL BID 12/23/21 12/23/21 [Lotrisone Cream] Darbepoetin Warner [Aranesp] 40 mcg SQ FR@0900 12/23/21 12/23/21 Docusate [Colace] 100 mg PO BID@0900,2100 12/23/21 12/23/21 Insulin Lispro [humaLOG Kwikpen] See Protocol SQ ACHS 12/23/21 12/23/21 Montelukast [Singulair] 10 mg PO HS@209912/23/21 12/23/21 Natural Balance Tears Solution 1 drop BOTH EYES BID PRN 12/23/21 12/23/21 0.1-0.3% Olopatadine HCl [Patanol 0.1%] 1 drop BOTH EYES BID@0900,209912/23/21 12/23/21 Pantoprazole Sodium [Protonix] 40 mg PO DAILY@0600 12/23/21 12/23/21 amLODIPine [Norvasc] 10 mg PO DAILY@0900 12/23/21 12/23/21 diphenhydrAMINE HCL [Benadryl] 25 mg PO TID@0900,1300,209912/23/21 12/23/21 Previous Rx's Medication Instructions Recorded Albuterol Nebulized [Ventolin 2.5 mg INHALATION RT-QID ml 11/26/21 Nebulized] Allergies Allergy/AdvReac Type Severity Reaction Status Date / Time atorvastatin [From Lipitor] AdvReac CRAMPS Verified 12/23/21 20:32 latex AdvReac Itching Verified 12/23/21 20:32 Review of Systems ROS Statement: Those systems with pertinent positive or pertinent negative responses have been documented in the HPI. ROS Other: All systems not noted in ROS Statement are negative. 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 Date of last positivie culture/infection: 11/09/21 MDRO Source:: Urine Past Surgical History: Appendectomy, Tubal Ligation Additional Past Surgical History / Comment(s): Colonoscopy, cataracts surg sep 30 & 2020 Past Anesthesia/Blood Transfusion Reactions: No Reported Reaction Past Psychological History: No Psychological Hx Reported Smoking Status: Never smoker Past Alcohol Use History: None Reported Past Drug Use History: None Reported - Past Family History Father Family Medical History: Cancer, Congestive Heart Failure (CHF) Additional Family Medical History / Comment(s): colon cancer Mother Family Medical History: Rheumatoid Arthritis (RA) General Exam General appearance: alert, in no apparent distress Head exam: Present: atraumatic, normocephalic Eye exam: Present: normal appearance, PERRL ENT exam: Present: normal exam, mucous membranes moist Neck exam: Present: normal inspection Respiratory exam: Present: normal lung sounds bilaterally. Absent: respiratory distress, wheezes Cardiovascular Exam: Present: regular rate, normal rhythm GI/Abdominal exam: Present: soft. Absent: distended, tenderness Extremities exam: Present: normal inspection, normal capillary refill. Absent: pedal edema Neurological exam: Present: alert, oriented X3, CN II-XII intact. Absent: motor sensory deficit Psychiatric exam: Present: normal affect, normal mood Skin exam: Present: warm, dry, intact. Absent: cyanosis, diaphoretic Course Vital Signs 12/23/21 20:00 Temperature 98.0 F Pulse Rate 93 Respiratory 18 Rate Blood Pressure 149/62 O2 Sat by Pulse 97 Oximetry EKG Findings - EKG Comments: EKG Findings:: Sinus rhythm with PVC rate of 87 NE interval 168, QRS duration 97, QTC 420, no ST segment elevation. Medical Decision Making - Medical Decision Making 76-year-old female with near syncopal or brief syncopal episode. Patient has returned to baseline, feeling normal without complaints time my evaluation. She is in sinus rhythm. Her laboratory testing reveals a stable and improving hemoglobin. Normal white blood cell count, mild elevation in creatinine with no acute left foot abnormality, negative troponin. Patient is eager for discharge. She wishes to return to the senior care. She will require monitoring. Return parameters discussed. She states that she had seen her trimming press operator earlier today. She does not want to be admitted at this time. - Lab Data Result diagrams: 12/23/21 21:22 12/23/21 21: Lab Results 12/23/21 12/23/21 12/23/21 Range/Units :22 21:22 21: WBC 7.4 (3.8-10.6) k/uL RBC 3.33 L (3.80-5.40) m/uL Hgb 10.3 L (11.4-16.0) gm/dL Hct 32.0 L (34.0-46.0) % MCV 96.1 (80.0-100.0) fL MCH 31.0 (25.0-35.0) pg MCHC 32.2 (31.0-37.0) g/dL RDW 13.3 (11.5-15.5) % Plt Count 289 (150-450) k/uL MPV 7.6 PT 10.1 (9.0-12.0) sec INR 0.9 (<1.2) APTT 19.4 L (22.0-30.0) sec Sodium 137 (137-145) mmol/L Potassium 4.3 (3.5-5.1) mmol/L Chloride 98 (98-107) mmol/L Carbon Dioxide 28 (22-30) mmol/L Anion Gap 11 mmol/L BUN 56 H (7-17) mg/dL Creatinine 1.16 H (0.52-1.04) mg/dL Est GFR (CKD-EPI)AfAm 52 (>60 ml/min/1.73 sqM) Est GFR (CKD-EPI)NonAf 45 (>60 ml/min/1.73 sqM) Glucose 151 H (74-99) mg/dL Calcium 8.4 (8.4-10.2) mg/dL Total Bilirubin 0.7 (0.2-1.3) mg/dL AST 22 (14-36) U/L ALT 16 (4-34) U/L Alkaline Phosphatase 112 (38-126) U/L Troponin I (0.000-0.034) ng/mL Total Protein 7.5 (6.3-8.2) g/dL Albumin 3.4 L (3.5-5.0) g/dL 12/23/21 Range/Units 21:22 WBC (3.8-10.6) k/uL RBC (3.80-5.40) m/uL Hgb (11.4-16.0) gm/dL Hct (34.0-46.0) % MCV (80.0-100.0) fL MCH (25.0-35.0) pg MCHC (31.0-37.0) g/dL RDW (11.5-15.5) % Plt Count (150-450) k/uL MPV PT (9.0-12.0) sec INR (<1.2) APTT (22.0-30.0) sec Sodium (137-145) mmol/L Potassium (3.5-5.1) mmol/L Chloride (98-107) mmol/L Carbon Dioxide (22-30) mmol/L Anion Gap mmol/L BUN (7-17) mg/dL Creatinine (0.52-1.04) mg/dL Est GFR (CKD-EPI)AfAm (>60 ml/min/1.73 sqM) Est GFR (CKD-EPI)NonAf (>60 ml/min/1.73 sqM) Glucose (74-99) mg/dL Calcium (8.4-10.2) mg/dL Total Bilirubin (0.2-1.3) mg/dL AST (14-36) U/L ALT (4-34) U/L Alkaline Phosphatase (38-126) U/L Troponin I 0.032 (0.000-0.034) ng/mL Total Protein (6.3-8.2) g/dL Albumin (3.5-5.0) g/dL Disposition Clinical Impression: Syncope Disposition: HOME SELF-CARE Condition: Fair Instructions (If sedation given, give patient instructions): Syncope (ED) Is patient prescribed a controlled substance at d/c from ED?: No Referrals: Nenita Shelby MD [Primary Care Provider] - 1-2 days Time of Disposition: 22:24
[2021-12-23 22:07] LABS: INR 0.9 (<1.2); Partial Thromboplastin Time 19.4 sec (22.0-30.0); Prothrombin Time 10.1 sec (9.0-12.0)
[2021-12-23] MEDS ORDERED: ACETAMINOPHEN TAB 500 MG TAB PO STA (23:32)
[2021-12-24 01:07] VITALS: BP 152/84; PULSE 84
== END 2021-12-24 01:07 | disposition home or self-care (01) ==
LOC: EC 19:57
DX: R55 Syncope and collapse (principal); J45.909 Unspecified asthma, uncomplicated; E11.9 Type 2 diabetes mellitus without complications; E78.5 Hyperlipidemia, unspecified; I10 Essential (primary) hypertension; M06.9 Rheumatoid arthritis, unspecified; Z79.4 Long term (current) use of insulin; Z91.040 Latex allergy status; Z86.73 Personal history of transient ischemic attack (TIA), and cerebral infarction without residual deficits; Z90.49 Acquired absence of other specified parts of digestive tract; Z98.51 Tubal ligation status
CPT/HCPCS: 36415; 71045; 80053; 84484; 85025; 85610; 85730; 93005; 99284